=== PATIENT | male | born 1965 | race Caucasian/White ===

== ENCOUNTER 2023-09-14 12:04 | Outpatient (OUT) | payer OTHER, SELFPAY ==
--- NOTE | 2023-09-14 | ECG_ITS ---
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
--- NOTE | 2023-09-14 | XR_ITS ---
The [address] [address] Patient Name: HARRIETT THAKKAR MRN: [id number] date: 1965 Sex: M Assigned Patient Location: LAB Current Patient Location: LAB Accession/Order Number: [id number] Exam Date: 09/14/2023 12:40 Report Date: 09/14/2023 12:52 At the request of: MARIELENA RESTREPO Procedure: XR chest 2V EXAM: XR chest 2V HISTORY: DYSPNEA ON EXERTION (R06.09) COMPARISON: None. TECHNIQUE: PA and lateral views of the chest. FINDINGS: The cardiomediastinal silhouette is normal. Left-sided cardiac pacemaker with atrial and ventricular leads. No focal consolidation is identified. There is no pneumothorax. No pleural effusion is noted. The osseous structures are intact. XR/XR chest 2V IMPRESSION: No acute cardiopulmonary process. Electronically authenticated by: RACHEL LAMBERT Date: 09/14/2023 12:52
[2023-09-14 12:50] LABS: Basophils Absolute Auto 0.1 10^3/uL (0.0-0.1); Eosinophils Absolute Auto 0.1 10^3/uL (0.0-0.7); Eosinophils Percent Auto 2.1 % (0.9-7.0); Hematocrit 41.6 % (42.0-54.0); Hemoglobin 13.9 g/dL (14.0-18.0); Immature Granulocytes Abs Auto 0.02 10^3/uL (0.00-0.03); Immature Granulocytes Pct Auto 0.3 % (0.0-0.5); Lymphocytes Absolute Auto 1.1 10^3/uL (1.2-3.8); Mean Corpuscular HGB Conc 33.4 g/dL (29.9-35.2); Mean Corpuscular Hemoglobin 32.1 pg (25.9-34.0); Mean Corpuscular Volume 96.1 fL (80.0-94.0); Mean Platelet Volume 11.2 fL (9.5-13.5); Monocytes Absolute Auto 0.5 10^3/uL (0.3-0.8); Monocytes Percent Auto 8.4 % (1.7-12.0); Neutrophils Absolute Auto 4.4 10^3/uL (1.4-6.5); Neutrophils Percent Auto 71.2 % (43.0-75.0); Platelet Count 214 10^3/uL (150-450); Red Blood Count 4.33 10^6/uL (4.70-6.10); Red Cell Distribution Width 14.6 % (11.0-15.0); White Blood Count 6.2 10^3/uL (4.0-11.0)
[2023-09-14 13:02] LABS: Anion Gap 12.8; BUN Creatinine Ratio 15.2; Calcium 9.4 mg/dL (8.5-10.1); Carbon Dioxide 30.3 mmol/L (21.0-32.0); Chloride 103 mmol/L (98-107); Estimated GFR (African America >60 (>=60); Estimated GFR (Non-African Ame 59 (>=60); Glucose 192 mg/dL (74-106); Magnesium 1.2 mg/dL (1.8-2.4); Potassium 4.1 mmol/L (3.5-5.1); Sodium 142 mmol/L (136-145)
== END 2023-09-14 12:05 | disposition home or self-care (01) ==
LOC: LAB 12:08
PROVIDERS: PCP Family Medicine; Visit Provider Nurse Practitioner
DX: I48.0 Paroxysmal atrial fibrillation (principal); R06.09 Other forms of dyspnea
CPT/HCPCS: 36415; 71046; 80048; 83735; 83880; 85025; 93005

== ENCOUNTER 2023-10-01 10:09 | Outpatient (OUT) | payer OTHER, SELFPAY ==
--- OUTSIDE RECORDS SUMMARY | 2023-10-01 10:14 | XMS_ITS | CCD ---
Author Name Unknown Address [address] [place] [address] Organization [facility] Care Team Providers Care Digital Sales Director Name Role Phone Gladys Garcia Unavailable Unavailable Unavailable Farnaz Collazo Unavailable MD Gladys Garcia Primary Care Provider [phone] DO Bethel Bates Emergency Provider [facility] Attending Provider MD Angel Griggs Attending Provider [phone] Ugo Connelly Unavailable Tabitha Shaw Unavailable Jama Lopez Unavailable MD Gladys Garcia Primary Care Provider MD Angel Griggs Attending Provider [phone] Nickie [facility] Nmio Madsen Emergency Provider NAYLA Steven Attending Provider DR ANGEL GRIGGS Admitting Unavailable GRIGGS, DR ANGEL Matias Consulting Unavailable GRIGGS, DR ANGEL Matias Attending Unavailable GARCIA ., DR GLADYS Madsen Primary Care Unavailable GARCIA ., DR GLADYS Madsen Attending Unavailable GARCIA ., DR GLADYS Madsen Admitting Unavailable GARCIA ., DR GLADYS Madsen Primary Care Unavailable GARCIA ., DR GLADYS Madsen Consulting Unavailable GARCIA ., DR GLADYS Madsen Attending Unavailable GARCIA ., DR GLADYS Madsen Admitting Unavailable GARCIA ., DR GLADYS Madsen Primary Care Unavailable GARCIA ., DR GLADYS Madsen Consulting Unavailable GARCIA ., DR GLADYS Madsen Attending Unavailable GARCIA ., DR GLADYS Madsen Admitting Unavailable GARCIA ., DR GLADYS Madsen Primary Care Unavailable KUBITZ, DR PINEDA Styles Attending Unavailable KUBITZ, DR PINEDA Styles Admitting Unavailable KUBITZ, DR PINEDA Styles Consulting Unavailable GARCIA ., DR GLADYS Madsen Primary Care Unavailable GARCIA, GLADYS Madsen Attending Unavailable RADHA, GLADYS Madsen Attending Unavailable RADHA, GLADYS Madsen Attending Unavailable MD Gladys Garcia Primary Care Provider MD Angel Griggs Attending Provider MD Toby Amador Primary Care Provider DO José Luis Coleman Emergency Provider MD Toy Yeager Admit Provider MD Toy Yeager Attending Provider MD Naveen Emmayra Other Provider DO Derrek Tay Attending Provider [phone] Gladys Garcia Primary Care Unavailab Angel Fang Attending Unavailable Angel Griggs Attending Unavailable Dr. Toby Amador Primary Care Noemi Amador MD, Toby Tejada Primary Care Provider Lior Villeda MD Unavailable TOBY AMADOR Primary Care UnavailLORENE Ayoub Referring Unavailable TOBY AMADOR Primary Care UnavailANGEL Pro Attending Unavailable TOBY AMADOR Primary Care UnavailToby Aldana MD Primary Care Provider Toby Amador MD Primary Care Provider U navailTOBY Juárez Primary Care Unavailfredrick Amador MD, Toby Tejada Primary Care Provider MD Gladys Garcia Primary Care Provider [phone] MD Angel Griggs Attending Provider [phone] MD Toby Amador Primary Care Provider DO José Luis Coleman Emergency Provider [phone] Pineda Steven Admitting Unavailable Pineda Steven Attending Unavailable Gladys Garcia Primary Care Unavailable Griggs, Angel Admitting Unavailable Griggs, Angel Attending Unavailable Toy, Toy Admitting Unavailable Lance Emurhaf Consulting Unavailable Derrek Tay Attending Unavailable Toby Amador Primary Care Unavailable Gladys Garcia Primary Care Unavailable Bullimore, Nimo Cale Admitting Unavailable Bullimore, Nimo E Attending Unavailable José Luis Coleman Admitting Unavailable José Luis Coleman Attending Unavailable Toby Amador Primary Care Unavailable Aba, Dr. Toby Tejada Primary Care Noemi Villeda MD, Lior Referring Unavailable Lior Villeda MD Attending Unavailable Radha, Dr. Gladys Kelsey Primary Care Unavailab le Griggs, Dr. Angel Robb Referring Shellie vailable Griggs, Dr. Angel Robb Attending Shellie vailable Griggs, Dr. Angel Robb Referring Shellie vailable Griggs, Dr. Angel Robb Attending Shellie vailable Radha, Dr. Gladys Kelsey Primary Care Unavailab gregor Garcia, Dr. Gladys Kelsey Primary Care Unavailab le Griggs, Dr. Angel Robb Attending Shellie vailable Radha, Dr. Gladys Kelsey Primary Care Unavailab gregor Gacria, Dr. Gladys Kelsey Primary Care Unavailab NATHAN Hunt Referring Unavailable NADERETOBY Styles Primary Care UnavailNATHAN Fay Referring Unavailable TOBY AMADOR Primary Care Unavailabl e VILLEDA, LIOR Admitting Unavailable LIOR VILLEDA Attending Unavailable TOBY AMADOR Primary Care UnavailNATHAN Fay Referring Unavailable NADTOBY CARABALLO Primary Care Unavailabl e VILLEDA, LIOR Referring Unavailable TOBY AMADOR Primary Care Unavailfredrick e MARIELENA RESTREPO Attending Unavailable NADERERTOBY Attending Unavailable Allergies Allergy Classification Reported Allergen(s) Allergy Type Date of Onset Reaction(s) Facility (18 sources) Angiotensin Converting Enzyme (Paulette) Inhibitors; Translations: [PAULETTE Inhibitors] Allergy to drug (finding) 06-12-20 23 Hypotension [facility] 3 Repository (20 sources) Penicillins; Translations: [Penicillins] Allergy to drug (finding) 03-01-20 22 Unknown Reaction [facility] (20 sources) Sulfamethoxazole; Translations: [sulfa] Drug Allergy 06-12-20 23 Unknown, Rash [facility] DO Work Phone: (20 sources) penicillAMINE Drug Allergy Unknown [employer] Other (6 sources) Sulfonamides (Antibiotic); Translations: [Sulfa (Sulfonamide Antibiotics)] Allergy to substance 03-01-20 22 Unknown Reaction [facility] (1 source) Penicillins Drug allergy (disorder) 06-04-20 14 [facility] Repository (1 source) Sulfamethoxazole / Trimethoprim Drug Allergy 01-27-20 21 [facility] Repository (1 source) Sulfonamides (Antibiotic) Drug allergy (disorder) 06-04-20 14 [facility] Repository (1 source) Penicillin; Translations: [penicillin] Drug Allergy [facility] Repository (1 source) Sulfonamides (Antibiotic); Translations: [sulfa drugs] Propensity to adverse reactions (disorder) [facility] Repository (11 sources) Angiotensin-convert ing enzyme inhibitor agent Drug Allergy 06-12-20 23 Other [facility] (11 sources) Penicillins Drug Allergy 06-12-20 23 Unknown [facility] Work Phone: (3 sources) Sulfamethoxazole; Translations: [SULFAMETHOXAZOLE] Drug Allergy 06-12-20 23 [facility] 3 Repository (1 source) Penicillins Drug allergy (disorder) 04-02-20 23 [facility] Repository Medications Current Medications Medication Drug Class(es) Dates Sig (Normalized) Sig (Original) 3 ML semaglutide 2.68 MG/ML Pen Injector [Ozempic] (20 sources) inject 2 mg by subcutaneous injection every week Ozempic (2 MG/DOSE) 8 MG/3ML 2mg Subcutaneous once a week Active acetaminophen 325 mg oral tablet (1 source) Start: 06-29-2023 take 1 tablet by mouth every four hours as needed 650 mg, oral, Every 4 hours PRN, pain mild (1-3), first line, Starting on Tue06/29/23 at 1640 If ordered PRN for pain, nurse is permitted to administer this medication for higher pain scores based on patient preference? Yes amiodarone hydrochloride 200 mg oral tablet (19 sources) Antiarrhythmic Start: 07-22-2023 End: 09-20-2023 amiodarone (Pacerone) 200 mg tablet Indications: Paroxysmal atrial fibrillation (CMS/HCC) , Ventricular tachycardia, nonsustained (CMS/HCC) Take 1 tablet (200 mg) by mouth once daily. Do not start before July 22, 2023. 30 tablet 1 07/22/2023 Active Start: 06-30-2023 End: 07-21-2023 take 1 tablet by mouth twice daily amiodarone (Pacerone) 200 mg tablet Indications: Paroxysmal atrial fibrillation (CMS/HCC) , Ventricular tachycardia, nonsustained (CMS/HCC) Take 1 tablet (200 mg) by mouth 2 times a day for 21 days. 42 tablet 0 06/30/2023 Active Start: 06-30-2023 amiodarone (Pa cerone) tablet 200 mg apixaban 5 mg oral tablet (14 sources) Factor Xa Inhibitor Start: 08-29-2023 take 1 tablet by mouth every twelve hours 5 mg, oral, Every 12 hours, First dose on Tue08/29/23 at 2030 Start: 08-29-2023 End: 09-28-2023 take 1 tablet by mouth twice daily apixaban (Eliquis) 5 mg tablet Indications: Atrial fibrillation (CMS/HCC) Take 1 tablet (5 mg) by mouth 2 times a day. 60 tablet 0 08/29/2023 09/28/2023 Active Start: 10-26-2019 End: 03-01-2022 take 1 tablet by mouth twice daily Apixaban (Eliquis) 5 mg Tablet Discontinued 5 MG PO Twice daily 60 30 November 12, 2019 10:45am March 01, 2022 7:03pm atorvastatin 80 mg oral tablet (20 sources) HMG-CoA Reductase Inhibitor Start: 06-29-2023 take 80 mg by mouth once daily 80 mg, oral, Nightly, First dose on Tue06/29/23 at 2100 Start: 11-09-2019 take 1 tablet by shaquille th once daily at bedtime atorvastatin (Lipitor) 80 mg tablet Take 1 tablet (80 mg) by mouth once daily at bedtime. 0 01/13/2021 Active calcium chloride 0.0014 meq/ml / potassium chloride 0.004 meq/ml / sodium chloride 0.103 meq/ml / sodium lactate 0.028 meq/ml injectable solution (1 source) Start: 08-29-2023 lactated Ringe r's infusion clopidogrel 75 mg oral tablet (20 sources) P2Y12 Platelet Inhibitor Start: 07-04-2020 take 1 tablet by mouth once daily clopidogrel (Plavix) 75 mg tablet Take 1 tablet (75 mg) by mouth once daily. 0 10/09/2021 Active colchicine 0.6 mg oral tablet (2 sources) Start: 08-29-2023 End: 09-05-2023 colchicine tablet 0.6 mg docusate sodium 50 mg / sennosides, senior living 8.6 mg oral tablet (1 source) Start: 08-29-2023 take 2 tablets by mouth twice daily 2 tablet, oral, 2 times daily, First dose on Tue08/29/23 at 2100 Bowel Regimen - for prevention of constipation H old for loose stools doxycycline hyclate 100 mg oral capsule (6 sources) Tetracycline-cla ss Drug Start: 06-30-2023 End: 07-07-2023 doxycycline (Vibramycin) 100 mg capsule Indications: S/P implantation of automatic cardioverter/defibr illator (AICD) Take 1 capsule (100 mg) by mouth 2 times a day for 7 days. Take with at least 8 ounces (large glass) of water, do not lie down for 30 minutes after 14 capsule 0 06/30/2023 07/07/2023 Active Start: 07-17-2020 End: 03-01-2022 take 100 mg by mouth twice daily Doxycycline Monohydrate Discontinued 100 MG PO Twice daily July 16, 2020 11:00pm March 01, 2022 7:03pm furosemide 40 mg oral tablet (20 sources) Loop Diuretic Start: 09-13-2023 End: 09-12-2024 take 1.5 tablets by mouth once daily furosemide (Lasix) 40 mg tablet Indications: Essential hypertension Take 1.5 tablets (60 mg) by mouth once daily. 135 tablet 3 09/13/2023 09/12/2024 Active Start: 08-30-2023 furosemide (La six) injection 20 mg Start: 06-29-2023 take 40 mg by mouth once daily 40 mg, oral, Daily, First dose on Tue08/29/23 at 2030 Start: 07-04-2020 take 60 mg by mouth once daily Furosemide Active 60 MG PO Daily July 03, 2020 11:00pm glucagon (rdna) 1 mg injection (2 sources) Antihypoglycemic Agent Start: 08-29-2023 1 mg, i ntramuscular, Every 15 min PRN, low blood sugar - see comments, For blood glucose less than or equal to 70 mg/dL and no IV access, Starting on Tue08/29/23 at 2027 Give until blood glucose is 100 mg/dL or greater. If patient DOES NOT HAVE secure IV access & patient is unconscious, NPO or is unable to eat or drink. Start: 06-29-2023 1 mg, intramus cular, Every 15 min PRN, low blood sugar - see comments, For blood glucose less than or equal to 70 mg/dL and no IV access, Starting on Tue06/29/23 at 1737 Give until blood glucose is 100 mg/dL or greater. If patient DOES NOT HAVE secure IV access & patient is unconscious, NPO or is unable to eat or drink. 50 ml glucose 500 mg/ml prefilled syringe (4 sources) Start: 08-29-2023 25 g, intraven ous, Every 15 min PRN, For blood glucose less than or equal to 40 mg/dL, Starting on Tue08/29/23 at 2027 May repeat until blood glucose level reaches 100 mg/dL or greater. Push 2 - 3 mL/minute if patient has secure IV access. Start: 08-29-2023 0.3 g/kg/hr 14 6 kg (438 mL/hr), intravenous, Once as needed, For blood glucose less than 70 mg/dL after 30 minutes of intervention. Discontinue once blood glucose reaches 100 mg/dL., Starting on Tue08/29/23 at 2027, For 1 dose Discontinue once blood glucose reaches 100 mg/dL. Start: 06-29-2023 25 g, intraven ous, Every 15 min PRN, For blood glucose less than or equal to 40 mg/dL, Starting on Tue06/29/23 at 1737 May repeat until blood glucose level reaches 100 mg/dL or greater. Push 2 - 3 mL/minute if patient has secure IV access. Start: 06-29-2023 0.3 g/kg/hr 13 6 kg (408 mL/hr), intravenous, Once as needed, For blood glucose less than 70 mg/dL after 30 minutes of intervention. Discontinue once blood glucose reaches 100 mg/dL., Starting on Tue06/29/23 at 1737, For 1 dose Discontinue once blood glucose reaches 100 mg/dL. insulin aspart, human (20 sources) Insulin Analog Start: 04-04-2023 Insulin Aspart U-100 Active 0 UNIT SUBCUT Before meals April 03, 2023 11:00pm Start: 04-04-2023 Insulin Aspart U-100 Active 0 UNIT SUBCUT Before meals April 04, 2023 12:00am Start: 11-08-2020 insulin aspart (NovoLOG) 100 unit/mL injection Insulin Aspart 100 UNIT/ML SOLN Quantity: 120 Refills: 0 Start : 08-Nov-2020 Active 0 11/08/2020 Active Start: 11-08-2020 Insulin Aspart 100 UNIT/ML Subcutaneous Solution Quantity: 120 Refills: 0 Ordered: 13-Feb-2021 DO Start : 08-Nov-2020 Active Start: 08-04-2017 Insulin Aspart U-100 Active 0 .ROUTE .COMPLEX August 04, 2017 12:00am 150-200=3, 200-250=6, 250-300=9, 300-350=12, 350-400=15 plus half as many insulin as carbs eaten. Start: 08-04-2017 Insulin Aspart U-100 Active 0 .ROUTE .COMPLEX August 04, 2017 1:00am 150-200=3, 200-250=6, 250-300=9, 300-350=12, 350-400=15 plus half as many insulin as carbs eaten. Start: 08-04-2017 inject 50 [IU] by dalton bcutaneous injection once before mealtime Insulin Aspart U-100 Active 50 UNITS SUBCUT 3x/Day before meals August 04, 2017 1:00am NovoLOG 100 UNIT /ML Subcutaneous for 28 Active Insulin Aspart A ctive insulin glargine 100 unt/ml injectable solution (7 sources) Insulin Analog Start: 08-29-2023 inject 65 [IU] by subcutaneous injection once daily 65 Units, subcutaneous, Nightly, First dose on Tue08/29/23 at 2100 Start: 06-29-2023 insulin glargi ne (Lantus) injection 65 Units Start: 08-04-2017 End: 03-01-2022 inject 50 [IU] by subcutaneous injection once daily in the morning Insulin Glargine Discontinued 50 UNITS SUBCUT Every morning August 04, 2017 12:00am March 01, 2022 7:04pm Start: 08-04-2017 End: 03-01-2022 inject 50 [IU] by subcutaneous injection once daily in the morning Insulin Glargine Discontinued 50 UNITS SUBCUT Every morning August 04, 2017 1:00am March 01, 2022 8:04pm Insulin Glargine-Yfgn (5 sources) Start: 03-01-2022 Insulin Glargi ne-Yfgn (Semglee(Insulin Glargine-Yfgn)) 100 unit/mL solution Active 50 UNIT SUBCUT Daily February 28, 2022 11:00pm Start: 03-01-2022 Insulin Glargi ne-Yfgn (Semglee(Insulin Glargine-Yfgn)) 100 unit/mL solution Active 50 UNIT SUBCUT Daily March 01, 2022 12:00am Start: 03-01-2022 Insulin Glargi ne-Yfgn (Semglee(Insulin Glargine-Yfgn)) 100 unit/mL solution Active 65 UNIT SUBCUT Daily March 01, 2022 12:00am insulin glargine-yfgn (Semglee,insulin glargine-yfgn,) 100 unit/mL pen (11 sources) Start: 10-06-2021 insulin glargine-yfgn (Semglee,insulin glargine-yfgn,) 100 unit/mL pen Inject 65 Units under the skin once daily at bedtime. 0 10/06/2021 Active insulin lispro 100 unt/ml injectable solution (1 source) Insulin Analog Start: 06-29-2023 0-5 Units, subcutaneous, 3 times daily with meals, First dose on Tue06/29/23 at 1745 Insulin Lispro Corrective Scale #1 Hypoglyce phuong protocol Call LIP unit(s) if Blood Glucose is between 0 - 70 mg/dL 0 unit(s) if Blood glucose is between 71-150 1 unit(s) if Blood glucose is between 151-200 2 unit(s) if Blood glucose is between 201-250 3 unit(s) if Blood glucose is between 251-300 4 unit(s) if Blood glucose is between 301-350 5 unit(s) if Blood glucose is between 351-400 No tify provider unit(s) if Blood Glucose is greater than 400 mg/dL metFORMIN hydrochloride 850 mg oral tablet (20 sources) Biguanide Start: 08-04-2017 take 1 tablet by mouth twice daily metFORMIN (Glucophage) 850 mg tablet Take 1 tablet (850 mg) by mouth 2 times a day. 0 04/22/2020 Active 24 hr metoprolol succinate 25 mg extended release oral tablet (20 sources) beta-Adrenergic Cady Start: 06-29-2023 End: 09-10-2023 take 25 mg by mouth once daily 25 mg, oral, Daily, First dose on Tue08/29/23 at 2029 Do not crush or chew. Start: 12-16-2021 End: 06-30-2023 take 1 tablet by mouth twice daily metoprolol succinate XL (Toprol-XL) 25 mg 24 hr tablet Take 1 tablet (25 mg) by mouth 2 times a day. 0 12/16/2021 06/30/2023 Discontinued (Stop Taking at Discharge) Start: 07-04-2020 take 25 mg by mouth twice mark y Metoprolol Succinate Active 25 MG PO Twice daily July 03, 2020 11:00pm Start: 07-04-2020 take 25 mg by mouth once daily Metoprolol Succinate Active 25 MG PO Daily July 04, 2020 12:00am Start: 11-12-2019 End: 07-04-2020 take 25 mg by mouth every six hours Metoprolol Tartrate Discontinued 25 MG PO Every 6 hours November 12, 2019 12:00am July 04, 2020 11:09am Start: 10-19-2019 End: 11-12-2019 take 50 mg by mouth once daily in the morning Metoprolol Succinate Discontinued 50 MG PO Every morning October 19, 2019 12:00am November 12, 2019 12:06pm Start: 10-19-2019 End: 11-12-2019 take 25 mg by mouth twice daily Metoprolol Tartrate Di scontinued 25 MG PO Twice daily October 19, 2019 12:00am November 12, 2019 10:45am Start: 08-04-2017 End: 10-19-2019 take 50 mg by mouth twice daily Metoprolol Tartrate Di scontinued 50 MG PO Twice daily August 04, 2017 12:00am October 19, 2019 7:41am midodrine hydrochloride 10 mg oral tablet (20 sources) alpha-Adrenergic Agonist Start: 04-20-2023 take 10 mg by mouth three times daily 10 mg, oral, 3 times daily (0900,1400,1900), First dose on Tue08/29/23 at 2115 Avoid dosing after the evening meal or within 4 hours of bedtime to prevent supine hypertension unless indicated for vasopressor sparing in the ICU. Start: 07-12-2022 End: 07-12-2023 take 2 tablets by mouth three times daily midodrine (Proamatine) 5 mg tablet Take 2 tablets (10 mg) by mouth 3 times a day. 0 07/12/2022 07/12/2023 Discontinued (Other) Start: 07-12-2022 take 1 tablet by shaquille th three times daily Midodrine HCl - 5 MG Oral Tablet TAKE 1 TABLET 3 TIMES DAILY. Quantity: 270 Refills: 3 Ordered: 12-Jul-2022 Angel Griggs MD Start : 12-Jul-2022 Active dose increased Start: 03-01-2022 take 5 mg by mouth twice daily Midodrine Active 5 MG PO Twice daily February 28, 2022 11:00pm Start: 03-01-2022 take 2.5 mg by mouth once mark y Midodrine Active 2.5 MG PO Daily March 01, 2022 12:00am Start: 10-09-2021 take 1 tablet by shaquille th three times daily Midodrine HCl - 2.5 MG Oral Tablet TAKE 1 TABLET 3 TIMES DAILY. Quantity: 270 Refills: 3 Ordered: 09-Oct-2021 Angel Griggs MD Start : 09-Oct-2021 Active take 1 tablet by shaquille th twice daily Midodrine HCl - 2.5 MG Oral Tablet Take 1 tablet twice daily Quantity: 0 Refills: 0 Ordered: 11-Jan-2023 DO Active nitroglycerin 0.4 mg sublingual tablet (20 sources) Nitrate Vasodilator Start: 06-29-2023 0.4 mg, dalton blingual, Every 5 min PRN, chest pain, Starting on Tue06/29/23 at 1737 May administer up to 3 doses per episode. Start: 10-19-2019 End: 11-12-2019 Nitroglycerin (Nitrostat) 0. 4 mg Tablet, Sublingual Active 0.4 MG SUBLINGUAL every 5 to 15 minutes November 12, 2019 10:45am Nitroglycerin 0. 4 MG as directed Sublingual Active Ozempic (2 MG/DOSE) 8 MG/3ML (3 sources) inject 2 mg by subcutaneous injection every week Ozempic (2 MG/DOSE) 8 MG/3ML 2mg Subcutaneous once a week Active ozempic (2 mg/dose) 8 mg/3ml solution pen-injector (1 source) inject 2 mg by subcutaneous injection every week Ozempic (2 MG/DOSE) 8 MG/3ML 2mg Subcutaneous once a week Active potassium 99 mg extended release oral tablet (20 sources) take 1 tablet by shaquille th once daily Potassium 99 MG 1 tablet Orally Once a day 10 mq once daily Active microencapsulated potassium chloride 20 meq extended release oral tablet (20 sources) Start: 2022 potassium chloride CR 20 mEq ER tablet 1 tablet (20 mEq) once daily. 0 2022 Active Start: 2022 take 1 tablet by shaquille th once daily Potassium Chloride ER 20 MEQ Oral Tablet Extended Release 1 TAB DAILY Quantity: 90 Refills: 3 Ordered: 18-Apr-2023 Angel Griggs MD Start : 09-Mar-2022 Active Start: 03-01-2022 take 20 mEq by mouth once mark y Potassium Chloride Active 20 MEQ PO Daily February 28, 2022 11:00pm Start: 03-01-2022 take 10 mEq by mouth once mark y Potassium Chloride Active 10 MEQ PO Daily March 01, 2022 12:00am Start: 11-17-2020 Potassium Chlo ride ER 10 MEQ Oral Capsule Extended Release Quantity: 90 Refills: 0 Ordered: 27-Jul-2021 DO Start : 17-Nov-2020 Active Semaglutide (5 sources) Start: 03-01-2022 inject 1 mg by subcutaneous injection every week Semaglutide (Ozempic) 1 mg/dose (4 mg/3 mL) pen injector Active 2 MG SUBCUT every week February 28, 2022 11:00pm tuesday Start: 03-01-2022 inject 1 mg by subcu taneous injection every week Semaglutide (Ozempic) 1 mg/dose (4 mg/3 mL) pen injector Active 2 MG SUBCUT every week March 01, 2022 12:00am tuesday Start: 03-01-2022 inject 1 mg by subcu taneous injection every week Semaglutide (Ozempic) 1 mg/dose (4 mg/3 mL) pen injector Active 2 MG SUBCUT every week March 01, 2022 12:00am Start: 03-01-2022 inject 1 mg by subcu taneous injection every week Semaglutide (Ozempic) 1 mg/dose (4 mg/3 mL) pen injector Active 1 MG SUBCUT every week March 01, 2022 12:00am semaglutide (Ozempic) 1 mg/dose (4 mg/3 mL) pen injector (10 sources) Start: 07-02-2021 semaglutide (Ozempic) 1 mg/dose (4 mg/3 mL) pen injector Ozempic (1 MG/DOSE) 4 MG/3ML Subcutaneous Solution Pen-injector Quantity: 9 Refills: 0 Start : 02-Jul-2021 Active 0 07/02/2021 Active traMADol hydrochloride 50 mg oral tablet (1 source) Opioid Agonist Start: 06-29-2023 take 1 tablet by mouth every six hours as needed 50 mg, oral, Every 6 hours PRN, pain moderate (4-6), second line, Starting on Tue06/29/23 at 1640 If ordered PRN for pain, nurse is permitted to administer this medication for higher pain scores based on patient preference? Yes Completed/Discontinued Medications Medication Drug Class(es) Dates Sig (Normalized) Sig (Original) aspirin 81 mg delayed release oral tablet (5 sources) Platelet Aggregation Inhibitor, Nonsteroidal Anti-inflammatory Drug Start: 10-19-2019 End: 07-04-2020 take 81 mg by mouth once daily Aspirin Discontinued 81 MG PO Daily October 19, 2019 12:00am July 04, 2020 11:04am cephalexin 500 mg oral capsule (5 sources) Cephalosporin Antibacterial Start: 11-14-2020 End: 03-01-2022 take 500 mg by mouth every twelve hours Cephalexin Discontinued 500 MG PO Q12H 14 November 14, 2020 12:00am March 01, 2022 7:02pm clindamycin 300 mg oral capsule (1 source) Lincosamide Antibacterial Start: 05-10-2022 take 1 capsule by mouth every eight hours Clindamycin HCl - 300 MG Oral Capsule TAKE 1 CAPSULE BY MOUTH EVERY 8 HOURS FOR 10 DAYS Quantity: 30 Refills: 0 Ordered: 10-May-2022 DO Start : 10-May-2022 Complete collagenase 0.25 unt/mg topical ointment (5 sources) Collagen-specific Enzyme Start: 07-04-2020 End: 03-01-2022 Collagenase Clostridium Histo. (Santyl) 250 unit/gram ointment Discontinued 1 APPLIC TOPICAL Daily July 03, 2020 11:00pm March 01, 2022 7:02pm digoxin 0.25 mg oral tablet (5 sources) Cardiac Glycoside Start: 11-12-2019 End: 03-01-2022 take 250 ug by mouth once daily Digoxin Discontinued 250 MCG PO Daily November 12, 2019 12:00am March 01, 2022 7:03pm dofetilide 0.25 mg oral capsule (20 sources) Antiarrhythmic Start: 05-17-2023 take 1 capsule by mouth twice daily Dofetilide 250 MCG Oral Capsule TAKE 1 CAPSULE TWICE DAILY. Quantity: 180 Refills: 1 Ordered: 17-May-2023 Angel Griggs MD Start : 17-May-2023 Active dose decreased Start: 05-10-2023 take 1 capsule by [facility] twice daily Dofetilide 125 MCG Oral Capsule TAKE 1 CAPSULE TWICE DAILY ALONG WITH 250 MCG = 375 MCG TWICE DAILY. Quantity: 180 Refills: 3 Ordered: 10-May-2023 Angel Griggs MD Start : 10-May-2023 Active DOSE DECREASE Start: 05-10-2023 take [address] [facility] twice daily Dofetilide 250 MCG Oral Capsule TAKE 1 CAPSULE TWICE DAILY ALONG WITH 125 MCG = 375 MCG TWICE DAILY. Quantity: 180 Refills: 3 Ordered: 10-May-2023 Angel Griggs MD Start : 10-May-2023 Active dose decrease Start: 11-12-2019 End: 06-30-2023 take 500 ug by mouth twice daily Dofetilide Active 500 MCG PO Twice daily 60 November 12, 2019 12:00am take 1 capsule by mo ut twice daily Dofetilide 125 MCG 1 capsule (with 250mg to equal 375mcg) Orally Twice a day Active take 1 capsule by mo uth every twelve hours Dofetilide 250 MCG 1 capsule Oral Twice a day for 30 days Active take 500 ug by mouth twice daily Dofetilide 500 MCG TK 1 C PO BID Oral for 30 Active dronedarone 400 mg oral tablet (5 sources) Antiarrhythmic Start: 10-19-2019 End: 11-12-2019 take 1 tablet by mouth twice daily Dronedarone (Multaq) 400 mg Tablet Discontinued 400 MG PO Twice daily October 19, 2019 12:00am November 12, 2019 12:06pm glipiZIDE 5 mg oral tablet (1 source) Sulfonylurea Start: 06-30-2023 End: 06-30-2023 take 1 tablet by mouth once daily in the morning 5 mg, oral, 2 times daily before meals, First dose on Carly 06/30/23 at 0700 TAKE 1 TABLET BY MOUTH EVERY MORNING AND TAKE 1 TABLET BY MOUTH ONE HOUR BEFORE LUNCH IF BLOOD SUGAR IS OVER 180 glyBURIDE 5 mg oral tablet (20 sources) Sulfonylurea Start: 03-01-2022 End: 04-02-2023 take 5 mg by mouth twice daily Glyburide Discontinued 5 MG PO Twice daily February 28, 2022 11:00pm April 02, 2023 8:53am Start: 08-27-2020 End: 06-30-2023 take 1 tablet by mouth once daily in the morning glyBURIDE (Diabeta) 5 mg tablet Take 1 tablet (5 mg) by mouth once daily in the morning. TAKE 1 TABLET BY MOUTH EVERY MORNING AND TAKE 1 TABLET BY MOUTH ONE HOUR BEFORE LUNCH IF BLOOD SUGAR IS OVER 180 0 08/27/2020 06/30/2023 Discontinued (Stop Taking at Discharge) Start: 08-04-2017 End: 07-04-2020 take 5 mg by mouth twice daily Glyburide Discontinued 5 MG PO Twice daily August 04, 2017 12:00am July 04, 2020 11:05am Insulin Aspart 100 UNIT/ML SOLN (14 sources) Start: 11-08-2020 Insulin Aspart 100 UNIT/ML SOLN Quantity: 120 Refills: 0 Ordered: 13-Feb-2021 DO Start : 08-Nov-2020 Active lisinopril 5 mg oral tablet (5 sources) Angiotensin Converting Enzyme Inhibitor Start: 08-04-2017 End: 10-19-2019 take 5 mg by mouth once daily Lisinopril Discontinued 5 MG PO Daily August 04, 2017 12:00am October 19, 2019 7:39am Magnesium (5 sources) Start: 03-01-2022 End: 04-02-2023 take 200 mg by mouth once daily Magnesium Discontinued 200 MG PO Daily 2 February 28, 2022 11:00pm April 02, 2023 8:54am Start: 03-01-2022 End: 04-02-2023 take 200 mg by mouth once daily Magnesium Discontinued 200 MG PO Daily 2 March 01, 2022 12:00am April 02, 2023 9:54am Start: 03-01-2022 take 200 mg by mouth once daily Magnesium Active 200 MG PO Daily 2 March 01, 2022 12:00am magnesium oxide 400 mg oral tablet (7 sources) Start: 04-16-2022 take 1 tablet by mouth twice daily MAGnesium-Oxide 400 (240 Mg) MG Oral Tablet TAKE 1 TABLET BY MOUTH TWICE DAILY Quantity: 60 Refills: 0 Ordered: 20-Apr-2022 DO Start : 16-Apr-2022 Complete take 1 tablet by shaquille th three times daily Magnesium Oxide 400 MG Oral Tablet TAKE 1 TABLET 3 times daily Quantity: 0 Refills: 0 Ordered: 11-Jan-2023 DO Active Ozempic (0.25 or 0.5 MG/DOSE ) 2 MG/1.5ML (8 sources) Ozempic (0.25 or 0.5 MG/DOSE) 2 MG/1.5ML 0.5mg Subcutaneous once a week Not-Taking/PRN Ozempic (0.25 or 0.5 MG/DOSE) 2 MG/1.5ML 0.5mg Subcutaneous once a week Not-Taking Ozempic (1 MG/DOSE) 4 MG/3ML Subcutaneous Solution Pen-injector (15 sources) Start: 07-02-2021 Ozempic (1 MG/ DOSE) 4 MG/3ML Subcutaneous Solution Pen-injector Quantity: 0 Refills: 0 Ordered: 03-Jul-2021 DO Start : 02-Jul-2021 Active Start: 07-02-2021 Ozempic (1 MG/ DOSE) 4 MG/3ML Subcutaneous Solution Pen- injector Quantity: 9 Refills: 0 Ordered: 03-Jul-2021 DO Start : 02-Jul-2021 Active Ozempic (2 MG/DOSE) 8 MG/3ML Subcutaneous Solution Pen-injector (1 source) Start: 04-05-2022 inject 2 mg by subcutaneous injection every week Ozempic (2 MG/DOSE) 8 MG/3ML Subcutaneous Solution Pen-injector INJECT UNDER THE SKIN 2 MG EVERY WEEK Quantity: 3 Refills: 0 Ordered: 09-Jun-2022 DO Start : 05-Apr-2022 Complete pantoprazole 40 mg delayed release oral tablet (2 sources) Proton Pump Inhibitor Start: 08-29-2023 End: 09-28-2023 take 1 tablet by mouth once daily pantoprazole (ProtoNix) 40 mg EC tablet Indications: Atrial fibrillation (CMS/HCC) Take 1 tablet (40 mg) by mouth once daily. Do not crush, chew, or split. 30 tablet 0 08/29/2023 09/15/2023 Discontinued (Discontinued by another clinician) rivaroxaban 20 mg oral tablet (5 sources) Factor Xa Inhibitor Start: 10-19-2019 End: 10-26-2019 take 1 tablet by mouth once daily Rivaroxaban (Xarelto) 20 mg Tablet Discontinued 20 MG PO Daily October 19, 2019 12:00am October 26, 2019 12:18pm rosuvastatin calcium 20 mg oral tablet (5 sources) HMG-CoA Reductase Inhibitor Start: 10-19-2019 End: 11-12-2019 take 20 mg by mouth once daily at bedtime Rosuvastatin Discontinued 20 MG PO Daily at bedtime October 19, 2019 12:00am November 12, 2019 12:06pm 0.25 mg, 0.5 mg dose 1.5 ml semaglutide 1.34 mg/ml pen injector (20 sources) Ozempic (0.25 or 0.5 MG/DOSE) 2 MG/1.5ML 0.5mg Subcutaneous once a week Not-Taking Semglee (yfgn) 100 UNIT/ML Subcutaneous Solution (15 sources) Start: 10-06-2021 Semglee (yfgn) 100 UNIT/ML Subcutaneous Solution Quantity: 0 Refills: 0 Ordered: 13-Oct-2021 DO Start : 06-Oct-2021 Active Start: 10-06-2021 Semglee (yfgn) 100 UNIT/ML Subcutaneous Solution Quantity: 50 Refills: 0 Ordered: 13-Oct-2021 DO Start : 06-Oct-2021 Active sodium phosphate, dibasic 59.3 mg/ml / sodium phosphate, monobasic 161 mg/ml enema (1 source) Start: 08-30-2023 End: 08-30-2023 sodium phosphates (Fleets) 19-7 gram/118 mL enema 1 enema ticagrelor 90 mg oral tablet (10 sources) Start: 10-26-2019 End: 07-04-2020 take 1 tablet by mouth twice daily Ticagrelor (Brilinta) 90 mg Tablet Discontinued 90 MG PO Twice daily 180 90 November 12, 2019 10:45am July 04, 2020 11:04am valsartan 80 mg oral tablet (5 sources) Angiotensin 2 Receptor Cady Start: 10-19-2019 End: 11-08-2019 take 80 mg by mouth once daily Valsartan Discontinued 80 MG PO Daily October 19, 2019 12:00am November 08, 2019 8:42pm warfarin sodium 5 mg oral tablet (20 sources) Vitamin K Antagonist Start: 12-15-2022 Warfarin Active 7.5 MG PO As Directed December 14, 2022 11:00pm TUESDAY Start: 03-01-2022 End: 08-31-2023 warfarin (Coumadin) 5 mg tab let Indications: Paroxysmal atrial fibrillation (CMS/HCC) TAKE 1 AND 1/2 TABLETS BY MOUTH ON TUESDAY, TUESDAY, TUESDAY. TAKE 1 TABLET ALL OTHER DAYS 110 tablet 3 08/23/2023 08/31/2023 Discontinued (Stop Taking at Discharge) Warfarin Sodium 5 MG Oral Tablet Take as directed [place] [facility] [place] Quantity: 0 Refills: 0 Ordered: 06-Oct-2021 DO Active Problems Active Problems Problem Classification Problem Date Documented Da te Episodic/Chronic Acute myocardial infarction (5 sources) Acute myocardial infarction of anterior wall; Translations: [ST elevation (STEMI) myocardial infarction involving other coronary artery of anterior wall] 11-09-2019 Chronic Cardiac dysrhythmias (20 sources) Paroxysmal atrial fibrillation; Translations: [Atrial fibrillation] Onset: 04-02-2023 11-09-2019 Chronic Cardiac dysrhythmias (11 sources) Palpitations; Translations: [Palpitations] Onset: 03-12-2022 03-01-2022 Episodic Chronic kidney disease (6 sources) Chronic kidney disease stage 3; Translations: [Stage 3 chronic kidney disease] 11-09-2019 Chronic Chronic ulcer of skin (1 source) Non-pressure chronic ulcer of other part of left foot with fat layer exposed; Translations: [N-PRS ULCR OTH PRT LT FT FAT EXPOS] Onset: 12-27-2022 Chronic Coagulation and hemorrhagic disorders (4 sources) Bleeding skin; Translations: [Spontaneous ecchymoses] 12-15-2022 Episodic Conduction disorders (20 sources) Automatic implantable cardiac defibrillator in situ; Translations: [Presence of automatic (implantable) cardiac defibrillator] Onset: 06-29-2023 06-30-2023 Chronic Coronary atherosclerosis and other heart disease (20 sources) Ischemic myocardial dysfunction; Translations: [Other specified forms of chronic ischemic heart disease] Onset: 07-17-2022 Chronic Diabetes mellitus with complications (6 sources) Type 2 diabetes mellitus with foot ulcer; Translations: [Type 2 diabetes mellitus with other diabetic neurological complication] Onset: 12-23-2022 Chronic Diabetes mellitus without complication (20 sources) Diabetes mellitus; Translations: [Diabetes mellitus without mention of complication, type II or unspecified type, not stated as uncontrolled] Onset: 04-02-2023 11-09-2019 Chronic Disorders of lipid metabolism (20 sources) Hyperlipidemia; Translations: [Other and unspecified hyperlipidemia] Onset: 07-21-2022 04-02-2023 Chronic Essential hypertension (20 sources) Essential hypertension; Translations: [Unspecified essential hypertension] Onset: 05-02-2023 06-12-2023 Chronic Fluid and electrolyte disorders (5 sources) Acute hypokalemia; Translations: [Hypokalemia] 03-01-2022 Episodic Other aftercare (20 sources) Drug therapy finding; Translations: [Long-term (current) use of other medications] Episodic Other aftercare (20 sources) Encounter for therapeutic drug level monitoring; Translations: [Medication monitoring encounter Z51.81] Onset: 06-24-2021 Resolved: 05-17-2022 Episodic Other connective tissue disease (5 sources) Swelling of left lower limb; Translations: [Other specified soft tissue disorders] 11-14-2020 Episodic Other lower respiratory disease (6 sources) Dyspnea; Translations: [Dyspnea, unspecified] 11-11-2019 Episodic Other nutritional; endocrine; and metabolic disorders (3 sources) Severe obesity; Translations: [Morbid obesity] Chronic Other nutritional; endocrine; and metabolic disorders (5 sources) Hypomagnesemia; Translations: [Hypomagnesemia] 03-01-2022 Chronic Other nutritional; endocrine; and metabolic disorders (20 sources) Obesity; Translations: [Obesity, unspecified] Onset: 06-12-2023 06-12-2023 Chronic Sylwia-; endo-; and myocarditis; cardiomyopathy (except that caused by tuberculosis or sexually transmitted disease) (4 sources) Primary cardiomyopathy; Translations: [Cardiomyopathy, unspecified] Onset: 07-13-2023 07-13-2023 Chronic Residual codes; unclassified (20 sources) Sleep apnea; Translations: [Unspecified sleep apnea] Onset: 06-12-2023 04-04-2023 Chronic Residual codes; unclassified (2 sources) Sleep apnea, unspecified; Translations: [Unspecified sleep apnea] Onset: 04-02-2023 04-04-2023 Chronic Residual codes; unclassified (5 sources) Noncompliance with treatment; Translations: [Patient's noncompliance with other medical treatment and regimen] 11-08-2019 Episodic Unclassified (2 sources) Other ventricular tachycardia (CMS/HCC); Translations: [Other ventricular tachycardia (CMS/HCC)] Onset: 06-12-2023 Unclassified (1 source) Non-pressure chronic ulcer of other part of left foot with fat layer exposed; Translations: [Non-pressure chronic ulcer of other part of left foot with fat layer exposed] Onset: 12-22-2022 Unclassified (1 source) Abrasion of right shoulder, initial encounter; Translations: [Abrasion of right shoulder, initial encounter] Onset: 12-15-2022 Past or Other Problems Problem Classification Problem Date Documented Date Episodic/Chronic Conditions associated with dizziness or vertigo (1 source) Dizziness and giddiness; Translations: [DIZZINESS AND GIDDINESS] Onset: 2 Episodic Coronary atherosclerosis and other heart disease (11 sources) Past history of procedure; Translations: [Percutaneous transluminal coronary angioplasty status] Onset: 3 11-08-2019 Episodic Comment on above: LAD/Diagonal; Nonspecific chest pain (13 sources) Chest pain; Translations: [Chest pain, unspecified] Onset: 3 04-02-2023 Episodic Other circulatory disease (20 sources) Orthostatic hypotension; Translations: [Orthostatic hypotension] Onset: 3 04-04-2023 Episodic Other circulatory disease (3 sources) Orthostatic hypotension; Translations: [Orthostatic hypotension] Onset: 3 04-04-2023 Episodic Other lower respiratory disease (15 sources) H/O: respiratory disease; Translations: [Personal history of other diseases of respiratory system] Resolved: 2 Episodic Other lower respiratory disease (2 sources) Dyspnea, unspecified; Translations: [Other respiratory abnormalities] Onset: 3 04-04-2023 Episodic Other screening for suspected conditions (not mental disorders or infectious disease) (20 sources) Electrocardiogram abnormal; Translations: [Nonspecific abnormal electrocardiogram [ECG] [EKG]] Onset: 3 12-15-2022 Episodic Pulmonary heart disease (20 sources) Pulmonary embolism; Translations: [Other pulmonary embolism and infarction] Onset: 3 06-12-2023 Episodic Residual codes; unclassified (15 sources) H/O: Disorder; Translations: [Personal history of other specified diseases] Resolved: 2 Episodic Residual codes; unclassified (11 sources) Never smoked any substance; Translations: [Other specified health status] Onset: 3 06-12-2023 Episodic Syncope (20 sources) Near syncope; Translations: [Syncope and collapse] Onset: 3 06-12-2023 Episodic Unclassified (15 sources) Never smoked tobacco; Translations: [Never a smoker] Unclassified (2 sources) Other ventricular tachycardia (CMS/HCC); Translations: [Other ventricular tachycardia (CMS/HCC)] Onset: 3 Results Test Name Value Interpretation Reference Range Facil ity Activated partial thrombopla stin time (aPTT) in platelet poor plasma by coagulation aOrdered By: José Luis Coleman on 09-14-2023 aPTT Coag (PPP) [Time] 35.2 s 25.1-36.5 [facility] Comment on above: A hematocrit value g reater than 55% may lead to inaccurate results in coagulation testing. Patients having hematocrit values >55% require a special collection tube for coagulation studies. Please contact the laboratory at [phone] for redraw instructions. Alanine aminotransferase [En zymatic activity/volume] in Serum or PlasmaOrdered By: José Luis Coleman on 09-14-2023 ALT [Catalytic activity/Vol] 21 U/L Normal 7-52 [facility] Comment on above: Performed By: #### H S TROP CK #### [address] Albumin [Mass/volume] in Ser um or Plasma by Bromocresol green (BCG) dye binding methoOrdered By: José Luis Coleman on 09-14-2023 Albumin BCG dye [Mass/Vol] 4.1 g/dL 3.5-5.7 [facility] Alkaline phosphatase [Enzyma tic activity/volume] in Serum or PlasmaOrdered By: José Luis Coleman on 09-14-2023 ALP [Catalytic activity/Vol] 73 U/L Normal 34-104 [facility] Comment on above: Performed By: #### H S TROP CK #### [address] Aspartate aminotransferase [ Enzymatic activity/volume] in Serum or PlasmaOrdered By: José Luis Coleman on 09-14-2023 AST [Catalytic activity/Vol] 19 U/L Normal 13-39 [facility] Comment on above: Performed By: #### H S TROP CK #### [facility] [address] [place] [address] [place] Automated basophil %Ordered By: José Luis Coleman on 09-14-2023 Basophils/100 WBC (Bld) 0.8 % Normal . [facility] Comment on above: Performed By: #### H S TROP, CK #### [place] [address] [place] Automated basophil countOrde red By: José Luis Coleman on 09-14-2023 Basophils (Bld) [#/Vol] 0.1 10*3/uL Normal 0.0-0.2 [facility] Comment on above: Result Comment: PERF ORMED BY: [place] [address] PATHOLOGIST DIESEL DRAGLINE OPERATOR MELANI GUTIÉRREZ M.D. Performed By: #### H S TROP, CK #### [address] Automated blood monocyte cou ntOrdered By: José Luis Coleman on 09-14-2023 Monocytes (Bld) [#/Vol] 0.7 10*3/uL Normal 0.0-0.8 [facility] Comment on above: Performed By: #### H S TROP, CK #### [address] Automated eosinophil %Ordere d By: José Luis Coleman on 09-14-2023 Eosinophils/100 WBC (Bld) 1.5 % Normal . [facility] Comment on above: Performed By: #### H S TROP, CK #### [address] Automated eosinophil countOr dered By: José Luis Coleman on 09-14-2023 Eosinophils (Bld) [#/Vol] 0.1 10*3/uL Normal 0.0-0.45 [facility] Comment on above: Performed By: #### H S TROP, CK #### [address] Automated monocyte %Ordered By: José Luis Coleman on 09-14-2023 Monocytes/100 WBC (Bld) 8.9 % Normal . [facility] Comment on above: Performed By: #### H S TROP, CK #### [address] Automated neutrophil %Ordere d By: José Luis Coleman on 09-14-2023 Neutrophils/100 WBC (Bld) 69.2 % Normal . [facility] Comment on above: Performed By: #### H S TROP, CK #### [address] BNP ser/plasOrdered By: Inez Coleman on 09-14-2023 Natriuretic peptide B (Bld) [Mass/Vol] 279.0 pg/mL High 5-100 [facility] Comment on above: Result Comment: PERF ORMED BY: [place] [address] PATHOLOGIST DIESEL DRAGLINE OPERATOR MELANI GUTIÉRREZ M.D. Performed By: #### H S TROP, CK #### [address] Basic Metabolic Panelon 08-20 Creatinine Clr Calc Pharmacy 94.74 Normal [facility] Comment on above: Result Comment: PERF ORMED BY: [place] [address] PATHOLOGIST DIESEL DRAGLINE OPERATOR MELANI GUTIÉRREZ M.D. Performed By: #### H S TROP, CK #### [address] GFR/1.73 sq M.predicted MDRD (S/P/Bld) [Vol rate/Area] mL/min/{1.73_m2} Normal [facility] Comment on above: Performed By: #### H S TROP, CK #### [address] Bilirubin.direct [Mass/volum e] in Serum or PlasmaOrdered By: José Luis Coleman on 09-14-2023 Bilirubin.direct [Mass/Vol] 0.20 mg/dL 0.03-0.18 [facility] Bilirubin.total [Mass/volume ] in Serum or PlasmaOrdered By: José Luis Coleman on 09-14-2023 Bilirubin [Mass/Vol] 0.7 mg/dL Normal 0.3-1.[address] [facility] Comment on above: Performed By: #### H S TROP, CK #### [address] Calcium [Mass/volume] in Ser um or PlasmaOrdered By: José Luis Coleman on 09-14-2023 Calcium [Mass/Vol] 9.4 mg/dL Normal 8.6-10.3 [facility] Comment on above: Performed By: #### H Reynaldo BEJARANO CK #### [address] Carbon dioxide, total [Moles /volume] in Serum or PlasmaOrdered By: José Luis Colemna on 09-14-2023 CO2 [Moles/Vol] 29.8 mmol/L Normal 21.0-31.0 [facility] Comment on above: Performed By: #### H Reynaldo BEJARANO CK #### [address] Chloride [Moles/volume] in S suad or PlasmaOrdered By: José Luis Coleman on 09-14-2023 Chloride [Moles/Vol] 104 mmol/L Normal 98-[address] [facility] Comment on above: Performed By: #### H Reynaldo BEJARANO CK #### [address] Complete Blood Count Auto Di ffon 09-14-2023 Mean Corpuscular HGB Conc 35.2 g/dL Normal 32.5-35.6 [facility] Comment on above: Performed By: #### H Reynaldo BEJARANO CK #### [address] Monocytes/100 WBC (Bld) 19.54 % Normal 0.00-20.00 [facility] Comment on above: Performed By: #### H Reynaldo BEJARANO CK #### [address] NRBC% 0.1 /100{WBC} Normal 0-0.5 [facility] Comment on above: Performed By: #### Concepcion BEJARANO CK #### [address] Creatine kinase [Enzymatic a ctivity/volume] in Serum or PlasmaOrdered By: José Luis Coleman on 09-14-2023 CK [Catalytic activity/Vol] 68 U/L Normal 30-223 [facility] Comment on above: Performed By: #### H S TROP, CK #### [facility] [address] [place] [address] Creatinine [Mass/volume] in Serum or PlasmaOrdered By: José Luis Coleman on 09-14-2023 Creatinine [Mass/Vol] 1.23 mg/dL Normal 0.70-1.30 [facility] Comment on above: Performed By: #### H S TROP, CK #### [facility] [address] [place] [address] ECG 12 lead ECGon 09-14-2023 ECG 12 lead ECG [facility] [place] [address] [place] [address] Electrocardiograph Report Signed Patient: Harriett Thakkar MR#: [id number] : 1965 Acct:[id number] Age/Sex: 58 / M ADM Date: 09/14/23 Loc: ER Room: Type: [facility] ER Attending Dr: Ordering Provider: José Luis Coleman DO Date of Service: 09/14/23 ECG/ECG 12 lead ECG: CHEST PAIN Copies to: Test Reason : Blood Pressure : 124/079 mmHG Vent. Rate : 103 BPM Atrial Rate : 258 BPM P-R Int : 000 ms QRS Dur : 094 ms QT Int : 416 ms P-R-T Axes : 000 087 010 degrees QTc Int : 544 ms Atrial flutter with variable AV block Low voltage QRS Cannot rule out Anteroseptal infarct (cited on or before 02-APR-2023) Prolonged QT Abnormal ECG When compared with ECG of 03-APR-2023 07:30, Atrial flutter has replaced Atrial fibrillation QRS axis shifted right Confirmed by José Luis Coleman DO ([id number]) on 09/14/2023 8:33:06 PM Referred By: Electronically Signed By:José Luis Coleman DO Transcribed By: MUS Signed By José Luis Coleman DO 2032 Normal [facility] Erythrocyte distribution wid th [Ratio] by Automated countOrdered By: José Luis Coleman on 09-14-2023 Erythrocyte distribution width (RBC) [Ratio] 15.8 % High 12.0-14.8 [facility] Comment on above: Performed By: #### H NELY RODRIGUEZ #### [facility] [address] Erythrocytes [#/volume] in B lood by Automated countOrdered By: José Luis Coleman on 09-14-2023 RBC (Bld) [#/Vol] 4.23 10*6/uL Normal 3.90-5.60 [facility] Comment on above: Performed By: #### H NELY RODRIGUEZ #### [facility] [address] Glucose [Mass/volume] in Ser um or PlasmaOrdered By: José Luis Coleman on 09-14-2023 Glucose [Mass/Vol] 84 mg/dL Normal 70-100 [facility] Comment on above: ADA recommended refe rence rangeRandom Glucose Reference Range is dependent on time and content of last meal. Glucose of more than 200 mg/dL in a nonstressed, ambulatory subject supports the diagnosis of Diabetes Mellitus. Result Comment: [place] om Glucose Reference Range is dependent on time and content of last meal. Glucose of more than 200 mg/dL in a nonstressed, ambulatory subject supports the diagnosis of Diabetes Mellitus. ADA recommended reference range Performed By: #### H NELY RODRIGUEZ #### [address] Hematocrit [Volume Fraction] of Blood by Automated countOrdered By: José Luis Coleman on 09-14-2023 Hematocrit (Bld) [Volume fraction] 39.4 % Normal 38.8-50.0 [facility] Comment on above: Performed By: #### H NELY RODRIGUEZ #### [facility] [address] Hemoglobin [Mass/volume] in BloodOrdered By: José Luis Coleman on 09-14-2023 Hemoglobin (Bld) [Mass/Vol] 13.9 g/dL Normal 13.0-17.0 [facility] Comment on above: Performed By: #### H NELY RODRIGUEZ #### [facility] [address] Hepatic Panelon 09-14-2023 Albumin [Mass/Vol] 4.1 g/dL Normal 3.5-5.7 [facility] Comment on above: Performed By: #### H S TROP, CK #### [facility] [address] Bilirubin,Indirect 0.5 mg/dL Normal [facility] Comment on above: Performed By: #### H S TROP, CK #### [facility] [address] Bilirubin.indirect [Mass/Vol] 0.20 mg/dL High 0.03-0.18 [facility] Comment on above: Performed By: #### H S TROP, CK #### [facility] [address] INR in Platelet poor plasma by Coagulation assayOrdered By: José Luis Coleman on 09-14-2023 INR Coag (PPP) [Relative time] 1.5 {INR} Normal [facility] Comment on above: INR Therapeutic Rang e A) Pre- and Peroperative OAT started two weeks before surgery. NOT HIP SURGERY: 1.5 - 2.5 HIP SURGERY: 2 - 3B) Primary and secondary prevention of venous THROMBOSIS: 2 - 3C) Active venous thrombosis, pulmonary embolismand prevention of recurrent venous thrombosis: 2 - 3D) Prevention of arterial thromboembolismincluding patients with mechanical heart valves: 3 - 4.5 Result Comment: INR Therapeutic Range A) Pre- and Peroperative OAT started two weeks before surgery. NOT HIP SURGERY: 1.5 - 2.5 HIP SURGERY: 2 - 3 B) Primary and secondary prevention of venous THROMBOSIS: 2 - 3 C) Active venous thrombosis, pulmonary embolism and prevention of recurrent venous thrombosis: 2 - 3 D) Prevention of arterial thromboembolism including patients with mechanical heart valves: 3 - 4.5 Performed By: #### H S TROP, CK #### [facility] [address] Leukocytes [#/volume] correc kaylee for nucleated erythrocytes in Blood by Automated counOrdered By: José Luis Coleman on 09-14-2023 WBC corrected for nucl RBC Auto (Bld) [#/Vol] 7.4 10*3/uL 4.1-10.5 [facility] Leukocytes [#/volume] in Blo od by Automated countOrdered By: José Luis Coleman on 09-14-2023 WBC (Bld) [#/Vol] 7.4 10*3/uL Normal 4.1-10.5 [facility] Comment on above: Performed By: #### H Reynaldo BEJARANO, CK #### [address] Lymphocytes [#/volume] in Bl ood by Automated countOrdered By: José Luis Coleman on 09-14-2023 Lymphocytes (Bld) [#/Vol] 1.4 10*3/uL Normal 1.00-4.8 [facility] Comment on above: Performed By: #### H Reynaldo BEJARANO, CK #### [address] Lymphocytes/100 leukocytes i n Blood by Automated countOrdered By: José Luis Coleman on 09-14-2023 Lymphocytes/100 WBC (Bld) 19.6 % Normal . [facility] Comment on above: Performed By: #### H Reynaldo BEJARANO, CK #### [address] MCH [Entitic mass] by Automa kaylee countOrdered By: José Luis Coleman on 09-14-2023 MCH (RBC) [Entitic mass] 32.7 pg Normal 27.5-35.2 [facility] Comment on above: Performed By: #### H S TROP, CK #### [address] MCHC Auto (RBC) [Mass/Vol]Or dered By: José Luis Coleman on 09-14-2023 MCHC (RBC) [Mass/Vol] 35.2 g/dL 32.5-35.6 [facility] MCV [Entitic volume] by Auto mated countOrdered By: José Luis Coleman on 09-14-2023 MCV (RBC) [Entitic vol] 93.0 fL Normal 83.5-101 [facility] Comment on above: Performed By: #### H S TROP, CK #### [place] [address] [place] Monocyte distribution width [Entitic volume] in Blood by AutomatedOrdered By: José Luis Coleman on 09-14-2023 Monocyte distribution width Auto (Bld) [Entitic vol] 19.54 % 0.00-20.00 [facility] Neutrophils [#/volume] in Bl ood by Automated countOrdered By: José Luis Coleman on 09-14-2023 Neutrophils (Bld) [#/Vol] 5.1 10*3/uL Normal 1.8-7.7 [facility] Comment on above: Performed By: #### H S TROP, CK #### [facility] [address] [place] [address] No Panel InformationOrdered By: José Luis Coleman on 09-14-2023 Estimated GFR (CKD-EPI) > 60.0 mL/Min [facility] Creatinine Clearance (Chem 94.74 [facility] Nucleated erythrocytes [Pres ence] in Blood by Automated countOrdered By: José Luis Coleman on 09-14-2023 Nucleated RBC Auto Ql (Bld) 0.1 /100{WBC} 0-0.5 [facility] Partial Thromboplastin Timeo n 09-14-2023 aPTT Coag (Bld) [Time] 35.2 s Normal 25.1-36.5 [facility] Comment on above: Result Comment: A he matocrit value greater than 55% may lead to inaccurate results in coagulation testing. Patients having hematocrit values >55% require a special collection tube for coagulation studies. Please contact the laboratory at [phone] for redraw instructions. PERFORMED BY: [place] [address] PATHOLOGIST DIESEL DRAGLINE OPERATOR MELANI GUTIÉRREZ M.D. Performed By: #### H S TROP, CK #### [facility] [address] [place] [address] Platelet mean volume [Entiti c volume] in Blood by Automated countOrdered By: José Luis Coleman on 09-14-2023 Platelet mean volume (Bld) [Entitic vol] 8.8 fL Normal 6.6-10.1 [facility] Comment on above: Performed By: #### H S TROP, CK #### [facility] [address] Platelets [#/volume] in Bloo d by Automated countOrdered By: José Luis Coleman on 09-14-2023 Platelets (Bld) [#/Vol] 197 10*3/uL Normal 150-450 [facility] Comment on above: Performed By: #### H S TROP, CK #### [address] Potassium [Moles/volume] in Serum or PlasmaOrdered By: José Luis Coleman on 09-14-2023 Potassium [Moles/Vol] 4.0 mmol/L Normal 3.5-5.1 [facility] Comment on above: Performed By: #### H S TROP, CK #### [address] Protein [Mass/volume] in Ser um or PlasmaOrdered By: José Luis Coleman on 09-14-2023 Protein [Mass/Vol] 6.4 g/dL Normal 6.4-8.9 [facility] Comment on above: Performed By: #### H S TROP, CK #### [address] Prothrombin time (PT)Ordered By: José Luis Coleman on 09-14-2023 PT Coag (PPP) [Time] 16.7 s High 9.0-12.[address] [facility] Comment on above: A hematocrit value g reater than 55% may lead to inaccurate results in coagulation testing. Patients having hematocrit values >55% require a special collection tube for coagulation studies. Please contact the laboratory at [phone] for redraw instructions. Result Comment: A he matocrit value greater than 55% may lead to inaccurate results in coagulation testing. Patients having hematocrit values >55% require a special collection tube for coagulation studies. Please contact the laboratory at [phone] for redraw instructions. Performed By: #### H S TROP, CK #### [address] Serum globulin measurement b y calculation (mass/volume)Ordered By: José Lius Coleman on 09-14-2023 Globulin (S) [Mass/Vol] 2.3 g/dL Normal [facility] Comment on above: Performed By: #### H S TROP, CK #### [address] Serum or plasma albumin/glob ulin mass ratioOrdered By: José Luis Coleman on 09-14-2023 Albumin/Globulin [Mass ratio] 1.8 {ratio} Normal [facility] Comment on above: Performed By: #### H S TROP, CK #### [address] Serum or plasma anion gap de terminationOrdered By: José Luis Coleman on 09-14-2023 Anion gap [Moles/Vol] 7.2 mmol/L Normal 6.0-15.0 [facility] Comment on above: Performed By: #### H S TROP, CK #### [address] Serum or plasma non-glucuron idated bilirubin measurement (mass/volume)Ordered By: José Luis Coleman on 09-14-2023 Bilirubin.indirect [Mass/Vol] 0.5 mg/dL [facility] Sodium [Moles/volume] in Ser um or PlasmaOrdered By: José Luis Coleman on 09-14-2023 Sodium [Moles/Vol] 137 mmol/L Normal 136-145 [facility] Comment on above: Performed By: #### H S TROP, CK #### [address] Troponin I High Sensitivityo n 09-14-2023 Troponin I High Sensitivity 13.7 pg/mL Normal 0.0-20.0 [facility] Comment on above: Result Comment: PERF ORMED BY: [place] [address] PATHOLOGIST DIESEL DRAGLINE OPERATOR MELANI GUTIÉRREZ M.D. Performed By: #### H S TROP, CK #### [address] Troponin I.cardiac [Mass/vol ume] in Serum or Plasma by Detection limit <= 0.01 ng/Ordered By: José Luis Coleman on 09-14-2023 Troponin I.cardiac DL <= 0.01 ng/mL [Mass/Vol] 13.7 pg/mL 0.0-20.0 [facility] Urea nitrogen [Mass/volume] in Serum or PlasmaOrdered By: José Luis Coleman on 09-14-2023 Urea nitrogen [Mass/Vol] 20 mg/dL Normal 7-25 [facility] Comment on above: Performed By: #### H S TROP, CK #### [address] XR chest 1V portableon 09-14 XR chest 1V portable [facility] [place] [address] [place] [address] XRay Report Signed Patient: Harriett Thakkar MR#: [id number] : 1965 Acct:[id number] Age/Sex: 58 / M ADM Date: 09/14/23 Loc: ER Room: Type: [facility] ER Attending Dr: Copies to: José Luis Coleman DO Ordering Provider: José Luis Coleman DO Date of Service: 09/14/23 XR/XR chest 1V portable: CHEST PAIN Plain film chest Single view HISTORY: Chest pain shortness of breath COMPARISON: 04/02/2023 FINDINGS: SUPPORT DEVICES: None POSTSURGICAL CHANGES: Cardiac device intact. HEART: Within normal limits PULMONARY SHIRLEY: Within normal limits MEDIASTINUM: Unremarkable LUNGS AND PLEURA: No acute lung process, pleural effusion or pneumothorax identified. BONY STRUCTURES: Intact ADDITIONAL FINDINGS None XR/XR chest 1V portable IMPRESSION: No acute process. Impression dictated by: Michele Maldonado M.D.09/14/2023 8:45 PM Dictation Location: [place] [address] Transcribed By: [facility] 09/14/232044 Dictated By: Michele Maldonado DO 09/14/232043 Signed By: 09/14/232044 [facility] Glucose Test strip manual (B ld) [Mass/Vol]on 08-31-2023 Glucose [Mass/Vol] 262 mg/dL High 74-99 [facility] Comment on above: Performed By: #### 3 4529-8 #### TD PERALTA ([id number]) [facility] ([facility]) [address] [place] [address] Glucose [Mass/Vol] 262 mg/dL High 74 - 99 mg/dL [facility] Interpretation and review of laboratory results Abnormal [facility] Glucose [Mass/Vol] 254 mg/dL High 74-99 [facility] Comment on above: Performed By: #### 3 4529-8 #### TD PERALTA ([id number]) [facility]) [address] [place] [address] Glucose [Mass/Vol] 254 mg/dL High 74 - 99 mg/dL [facility] Interpretation and review of laboratory results Abnormal [facility] Glucose [Mass/Vol] 140 mg/dL High 74-99 [facility] Comment on above: Performed By: #### 3 4529-8 #### TD PERALTA ([id number]) [facility]) [address] [place] [address] Glucose [Mass/Vol] 140 mg/dL High 74 - 99 mg/dL [facility] Interpretation and review of laboratory results Abnormal [facility] XR Chest Single viewon 08-31 1. Mild right hilar prominence, possibly secondary to adenopathy. Otherwise, evidence of acute cardiopulmonary process. Signed by: Kevin Loco 08/31/2023 6:27 PM Dictation workstation: [id number] Interpreted By: Kevin Loco, STUDY: XR CHEST 1 VIEW; 08/30/2023 2:29 pm INDICATION: Signs/Symptoms:short of breath. COMPARISON: Chest radiograph 06/30/2023 ACCESSION NUMBER(S): [id number] ORDERING CLINICIAN: NATHAN AU FINDINGS: AP radiograph of the chest was provided. DEVICES: Stable left-sided ICD. CARDIOMEDIASTINAL SILHOUETTE: Cardiomediastinal silhouette is stable in size and configuration.Athero sclerotic calcifications of the aortic arch. LUNGS: Mild right hilar prominence, compared with the prior radiograph possibly secondary to adenopathy. Otherwise no focal consolidation. No pneumothorax. No pleural effusion. BONES: No acute osseous changes. Kevin Boateng MD - 08/31/2023 Interpreted By: Kevin Loco, STUDY: XR CHEST 1 VIEW; 08/30/2023 2:29 pm INDICATION: Signs/Symptoms:short of breath. COMPARISON: Chest radiograph 06/30/2023 ACCESSION NUMBER(S): [id number] ORDERING CLINICIAN: NATHAN AU FINDINGS: AP radiograph of the chest was provided. DEVICES: Stable left-sided ICD. CARDIOMEDIASTINAL SILHOUETTE: Cardiomediastinal silhouette is stable in size and configuration.Athero sclerotic calcifications of the aortic arch. LUNGS: Mild right hilar prominence, compared with the prior radiograph possibly secondary to adenopathy. Otherwise no focal consolidation. No pneumothorax. No pleural effusion. BONES: No acute osseous changes. IMPRESSION: 1. Mild right hilar prominence, possibly secondary to adenopathy. Otherwise, evidence of acute cardiopulmonary process. Signed by: Kevin Loco 08/31/2023 6:27 PM Dictation workstation: [id number] [facility] Work Phone: XR Chest Single viewOrdered By: Kevin Loco on 08-31-2023 [facility] Work Phone: ECG 12-LEADon 08-30-2023 ECG 12-LEAD Ventricular Rate 99 Atrial Rate 99 P-R Interval 216 QRS Duration 90 Q-T Interval 370 QTC Calculation(Bazett) 474 P Dewey 57 R Dewey 56 T Dewey -6 QRS Count 16 Q Onset 221 P Onset 113 P Offset 183 T Offset 406 QTC Fredericia 437 Diagnosis Sinus rhythm with 1st degree AV block Low voltage QRS Cannot rule out Anteroseptal infarct (cited on or before 29-JUN-2023) Abnormal ECG When compared with ECG of 30-AUG-2023 08:36, (unconfirmed) No significant change was found Normal [facility] Glucose Test strip manual (B ld) [Mass/Vol]on 12-12-2023 Glucose [Mass/Vol] 205 mg/dL High 74-99 [facility] Comment on above: Performed By: #### 3 4529-8 #### TD PERALTA ([id number]) [facility]) [address] [place] [address] Glucose [Mass/Vol] 205 mg/dL High 74 - 99 mg/dL [facility] Interpretation and review of laboratory results Abnormal [facility] Glucose [Mass/Vol] 189 mg/dL High 74-99 [facility] Comment on above: Performed By: #### 3 4529-8 #### TD PERALTA ([id number]) [facility] ([facility]) [address] [place] [address] Glucose [Mass/Vol] 189 mg/dL High 74 - 99 mg/dL [facility] Interpretation and review of laboratory results Abnormal [facility] Glucose [Mass/Vol] 247 mg/dL High 74 - 99 mg/dL [facility] Interpretation and review of laboratory results Abnormal [facility] Glucose [Mass/Vol] 247 mg/dL High 74-99 [facility] Comment on above: Performed By: #### 3 4529-8 #### TD PERALTA ([id number]) [facility] ([facility]) [address] [place] [address] Glucose [Mass/Vol] 174 mg/dL High 74-99 [facility] Comment on above: Performed By: #### 3 4529-8 #### TD PERALTA ([id number]) [facility] ([facility]) [address] [place] [address] Glucose [Mass/Vol] 174 mg/dL High 74 - 99 mg/dL [facility] Interpretation and review of laboratory results Abnormal [facility] XR CHEST 1 VIEWon 08-30-2023 XR CHEST 1 VIEW Interpreted By: Kevin Loco, STUDY: XR CHEST 1 VIEW; 08/30/2023 2:29 pm INDICATION: Signs/Symptoms:short of breath. COMPARISON: Chest radiograph 06/30/2023 ACCESSION NUMBER(S): [id number] ORDERING CLINICIAN: NATHAN AU FINDINGS: AP radiograph of the chest was provided. DEVICES: Stable left-sided ICD. CARDIOMEDIASTINAL SILHOUETTE: Cardiomediastinal silhouette is stable in size and configuration.Athero sclerotic calcifications of the aortic arch. LUNGS: Mild right hilar prominence, compared with the prior radiograph possibly secondary to adenopathy. Otherwise no focal consolidation. No pneumothorax. No pleural effusion. BONES: No acute osseous changes. IMPRESSION: 1. Mild right hilar prominence, possibly secondary to adenopathy. Otherwise, evidence of acute cardiopulmonary process. Signed by: Kevin Loco 08/31/2023 6:27 PM Dictation workstation: [id number] [facility] XR Chest Single viewon 08-30 Radiology Study observation (narrative) [facility] Work Phone: Activated clotting timeon ACT Coag (Bld) [address] Comment on above: Result Comment: Targ et ACT range will vary based on the patient population, clinical status, and surgical intervention occurring. Performed By: #### 3 4529-8 #### TD PERALTA ([id number]) [facility] ([facility]) [address] [place] [address] ACT Coag (Bld) [address] Comment on above: Result Comment: Targ et ACT range will vary based on the patient population, clinical status, and surgical intervention occurring. Performed By: #### 2 341-6 #### TD PERALTA ([id number]) [facility] [address] [place] [address] ACT Coag (Bld) [address] Comment on above: Result Comment: Targ et ACT range will vary based on the patient population, clinical status, and surgical intervention occurring. Performed By: #### 2 341-6 #### TD PERALTA ([id number]) [facility] [address] [place] [address] ACT Coag (Bld) [address] Comment on above: Result Comment: Targ et ACT range will vary based on the patient population, clinical status, and surgical intervention occurring. Performed By: #### 3 4529-8 #### TD PERALTA ([id number]) [facility] [address] [place] [address] ACT Coag (Bld) [address] Comment on above: Result Comment: Targ et ACT range will vary based on the patient population, clinical status, and surgical intervention occurring. Performed By: #### 2 341-6 #### TD PERALTA ([id number]) [facility] ([facility]) [address] [place] [address] ACT Coag (Bld) [address] Comment on above: Result Comment: Targ et ACT range will vary based on the patient population, clinical status, and surgical intervention occurring. Performed By: #### 2 341-6 #### TD PERALTA ([id number]) [facility] [address] [place] [address] ACT Coag (Bld) [address] Comment on above: Result Comment: Targ et ACT range will vary based on the patient population, clinical status, and surgical intervention occurring. Performed By: #### 2 341-6 #### TD PERALTA ([id number]) [facility] [address] [place] [address] ACT Coag (Bld) [address] Comment on above: Result Comment: Targ et ACT range will vary based on the patient population, clinical status, and surgical intervention occurring. Performed By: #### 2 341-6 #### TD PERALTA ([id number]) [facility] [address] [place] [address] Coagulation tissue factor in ducedon 08-29-2023 PT Coag (PPP) [Time] 14.9 s High 9.8-12.8 [facility] Comment on above: Performed By: #### 5 902-2 #### TD KATHRYN ([id number]) [facility] ([facility]) [address] [place] [address] ECG 12-LEADon 08-29-2023 ECG 12-LEAD Ventricular Rate 75 Atrial Rate 326 QRS Duration 90 Q-T Interval 390 QTC Calculation(Bazett) 435 R Dewey 63 T Dewey 14 QRS Count 12 Q Onset 217 T Offset 412 QTC Fredericia 419 Diagnosis Atrial fibrillation with occasional ventricular-paced complexes Low voltage QRS Cannot rule out Anteroseptal infarct , age undetermined Abnormal ECG Confirmed by Brice Young ([id number]) on 09/02/2023 3:53:55 PM Normal [facility] Electrophysiology studyon Addendum by Lior Villeda MD on 08/29/2023 1:59 PM EST Persistent Atrial Fibrillation ablation Procedures Atrial Fibrillation ablation (13683), LA Pacing and recording (33448), 3D Mapping (44881), Intracardiac Echocardiogram (26026), Transseptal Catheterization (64751), Ultrasound Guided vascular access (36503),Additional Afib Ablation (65697) Direct current cardioversion (46750) Patient history: Please refer to the detailed history and physical on the patient's medical chart. Procedure narrative: The patient was in the fasting state. A baseline ECG was recorded and showed Atrial fibrillation. The patient was set up for continuous monitoring of surface 12 lead ECG and pulse oximetry. Blood pressure was monitored with automatic cuff measurements. Bilateral groins were clipped, prepped with chlorhexidine, and draped in the usual sterile fashion. Local anesthesia: Subcutaneous tissues were infiltrated with Lidocaine 1% 10 mL to the bilateral groin for local anesthesia. The procedure was performed under general anesthesia (administered and monitored by commercial insurance underwriter and [employer]YOR). Anesthesia sedated and intubated the patient without any acute complications. Radial arterial line was placed for continuous hemodynamic monitoring. Indwelling oconnor catheter was placed for strict intake and output measurement. Given pt's Subtherapeutic INR - transesophageal echocardiogram was performed after sedation and intubation, by Cardiology (Dr. Cunha) and NELSON clot was ruled out. The bilateral femoral vein was accessed x 3 using the modified Seldinger technique. 3 sheaths were inserted. The right common femoral vein was evaluated with ultrasound, it was normal in size and anatomy. The vein was accessed using ultrasound guidance and a 18G Cook needle, with direct visualization of the needle at all times. Similarly the left common femoral vein was also evaluated with ultrasound and access was obtained with ultrasound guidance and direct visualization. Images were saved for both vein accesses. Over the guidewires an 8F and 10F sheaths were inserted into the right femoral vein. A 7F sheath was also introduced into the left femoral vein. Via the 7F femoral venous access a Octapolar catheter was introduced and placed into the distal coronary sinus. The right femoral 7F vein access was then switched to a deflectable sheath Medium curl Agilis Under fluoroscopic guidance a intracardiac echocardiogram catheter was introduced into the right atrium. The right atrium, left atrium, left atrial appendage, RV were evaluated. No obvious structural abnormalities were noted. Initial imaging revealed No pericardial effusion. 01925 units of heparin were given and a drip at 500 units/hr was initiated. ACT was monitored and recorded at regular intervals throughout the case. Please see case log for ACT details. Device Interrogation CIED (Dual chamber ICD) was interrogated at the beginning of the case. ICD therapies were turned off Lead impedances, thresholds and sensing were tested and all recorded to be stable and at baseline. Pacing mode was changed to VVI. Transseptal catheterization: Under fluoroscopic and intracardiac echo guidance BRK needle was introduced via the Medium curl Agilis and single transseptal catheterization was performed. Guidewire was then introduced through the transseptal puncture and advanced to the left superior pulmonary vein. Using the guidewire as a rail, septostomy site was dilated to allow the sheath to be placed into the left atrium. The deflectable sheath was connected to a pressurized bag of heparinized saline with slow continuous infusion. 3D mapping: A 3D shell using the 3D electroanatomic mapping was made with the mapping catheter (HD Grid). Areas of fractionated signals, low voltage and Anatomy/OS of pulmonary veins were marked. At this point the deflectable sheath was brought back into the left atrium and the high-definition mapping catheter was removed. The ablation catheter TactiFlex RF was then introduced via the sheath into the left atrium. Ablation: During ablation esophageal temperature monitoring was utilized throughout the procedure. The temperature range noted during the procedure was from 36.7 to 37.5 degrees Celsius. For majority of the lesions high power short duration lesions were performed with power of 45W and 10-15s lesions along posterior wall and roof, and 10-20s lesions along the anterior wall. Lesions were tagged using Impedance change and target impedance drop for a abation lesion was atleast 10ohms. Distal local EGMs were also noted to be attenuated after each lesion application. Along the anterior aspect of the right pulmonary veins we mapped for phrenic capture. Ablation points along this region were performed in a manner to avoid any areas with phrenic capture. Post ablati (more content not included)... [facility] Work Phone: [facility] Work Phone: Glucose Test strip manual (B ld) [Mass/Vol]on 08-29-2023 Glucose [Mass/Vol] 216 mg/dL High 74-99 [facility] Comment on above: Performed By: #### 2 341-6 #### TD PERALTA ([id number]) [facility] ([facility]) [address] [place] [address] Glucose [Mass/Vol] 216 mg/dL High 74 - 99 mg/dL [facility] Interpretation and review of laboratory results Abnormal [facility] Glucose [Mass/Vol] 226 mg/dL High 74-99 [facility] Comment on above: Performed By: #### 2 341-6 #### TD PERALTA ([id number]) [facility] ([facility]) [address] [place] [address] Glucose [Mass/Vol] 226 mg/dL High 74 - 99 mg/dL [facility] Interpretation and review of laboratory results Abnormal [facility] PT Coag (PPP) [Time]on 08-29 INR Coag (PPP) [Relative time] 1.3 High 0.9-1.1 [facility] Comment on above: Performed By: #### 5 902-2 #### TD PERALTA ([id number]) [facility]) [address] [place] [address] INR Coag (PPP) [Relative time] 1.3 {INR} High 0.9 - 1.1 [facility] Interpretation and review of laboratory results Abnormal [facility] Protime-INRon 08-29-2023 PT Coag (PPP) [Time] 14.9 s High [facility] TRANSESOPHAGEAL ECHO (CLEO)on 08-29-2023 TRANSESOPHAGEAL ECHO (CLEO) [facility], [address] [facility] [address]Nde [phone] and TRANSESOPHAGEAL ECHOCARDIOGRAM REPORT Patient Name: HARRIETT Shine Physician: [id number] Guille Cunha MD Study Date: 08/29/2023 Ordering Provider: [id number] VILLEDA MRN/PID: [id number] Fellow: Nurse: Date of /Age: 6 1965 / 58 years Ekg Tech: MACK Gorman RDCS Gender: M Additional Staff: Height: 187.96 cm Admit Date: 08/29/2023 Weight: 145.61 kg Admission Status: Outpatient BSA: 2.66 m2 Department Location: [facility] Blood Pressure: 157 /92 mmHg Study Type: TRANSESOPHAGEAL ECHO (CLEO) Diagnosis/ICD: Unspecified atrial fibrillation-I48.91 Indication: Abnormal EKG CPT Code: CLEO Complete-91703; Doppler Limited-63436; Color Doppler-03156 Patient History: Pertinent History: A-Fib, HTN, Hyperlipidemia, CAD and Syncope. Arrhythmia. Study Detail: The following Echo studies were performed: 2D, Doppler and color flow. Technically challenging study due to patient lying in supine position. Patient has a pacemaker. The patient was sedated. PHYSICIAN INTERPRETATION: CLEO Details: Technically adequate omniplane transesophageal echocardiogram performed. Color flow Doppler echo was performed to assess for the presence of a patent foramen ovale. CLEO Medication: The patient was sedated by Anesthesia; please refer to anesthesia flow sheet for medications used. CLEO Procedure: The probe was passed without difficulty. The patient tolerated the procedure well without any apparent complications. Left Ventricle: The left ventricular systolic function is low normal, with an estimated ejection fraction of 50-55%. There are no regional wall motion abnormalities. The left ventricular cavity size is normal. Abnormal (paradoxical) septal motion, consistent with RV pacemaker. Left ventricular diastolic filling was not assessed. Left Atrium: The left atrium is upper limits of normal in size. There is no definite left atrial thrombus present. Increased thickness of the atrial septum (sparing the fossa ovalis) is present. This is consistent with lipomatous hypertrophy of the atrial septum. The left atrial appendage is small, the left atrial appendage Doppler velocities are mildly reduced, there is no thrombus visualized in the left atrial appendage and there is no spontaneous contrast noted in the left atrial appendage. Right Ventricle: The right ventricle is normal in size. There is normal right ventricular global systolic function. A device is visualized in the right ventricle. Right Atrium: The right atrium is normal in size. There is a device visualized in the right atrium. Aortic Valve: The aortic valve is trileaflet. There is no evidence of aortic valve regurgitation. Mitral Valve: The mitral valve is mildly thickened. There is trace mitral valve regurgitation. Tricuspid Valve: The tricuspid valve is structurally normal. There is trace tricuspid regurgitation. The Doppler estimated RVSP is within normal limits. Pulmonic Valve: The pulmonic valve is structurally normal. There is trace pulmonic valve regurgitation. Pericardium: There is a trivial pericardial effusion. Aorta: The aortic root is normal. There is no dilatation of the aortic arch. There is no dilatation of the ascending aorta. There is no dilatation of the aortic root. There is no plaque visualized in the ascending aorta. There is no plaque visualized in the transverse aorta. There is plaque visualized in the descending aorta which is classified as a Grade 2 [mild (focal or diffuse) intimal thickening of 2-3 mm] atherosclerosis. CONCLUSIONS: 1. Left ventricular systolic function is low normal with a 50-55% estimated ejection fraction. 2. Abnormal septal motion consistent with RV pacemaker. 3. RVSP within normal limits. 4. Lipomatous hypertrophy of the atrial septum. 5. No left atrial thrombus. QUANTITATIVE DATA SUMMARY: [id number] Guille Cunha MD Electronically signed on 08/29/2023 at 9:33:09 AM Final [facility] US Heart Transesophagealon 1 10-30-2022 [facility], [address] [facility] [facility] [address]Ekl [phone] and TRANSESOPHAGEAL ECHOCARDIOGRAM REPORT Patient Name: HARRIETT THAKKAR Fátima Physician: [id number] Guille Cunha MD Study Date: 08/29/2023 Ordering Provider: [id number] LIOR VILLEDA MRN/PID: [id number] Fellow: Nurse: Date of /Age: 6 1965 / 58 years Ekg Tech: MACK Gorman RDCS Gender: M Additional Staff: Height: 187.96 cm Admit Date: 08/29/2023 Weight: 145.61 kg Admission Status: Outpatient BSA: 2.66 m2 Department Location: [facility] Blood Pressure: 157 /92 mmHg Study Type: TRANSESOPHAGEAL ECHO (CLEO) Diagnosis/ICD: Unspecified atrial fibrillation-I48.91 Indication: Abnormal EKG CPT Code: CLEO Complete-66235; Doppler Limited-43156; Color Doppler-88185 Patient History: Pertinent History: A-Fib, HTN, Hyperlipidemia, CAD and Syncope. Arrhythmia. Study Detail: The following Echo studies were performed: 2D, Doppler and color flow. Technically challenging study due to patient lying in supine position. Patient has a pacemaker. The patient was sedated. PHYSICIAN INTERPRETATION: CLEO Details: Technically adequate omniplane transesophageal echocardiogram performed. Color flow Doppler echo was performed to assess for the presence of a patent foramen ovale. CLEO Medication: The patient was sedated by Anesthesia; please refer to anesthesia flow sheet for medications used. CLEO Procedure: The probe was passed without difficulty. The patient tolerated the procedure well without any apparent complications. Left Ventricle: The left ventricular systolic function is low normal, with an estimated ejection fraction of 50-55%. There are no regional wall motion abnormalities. The left ventricular cavity size is normal. Abnormal (paradoxical) septal motion, consistent with RV pacemaker. Left ventricular diastolic filling was not assessed. Left Atrium: The left atrium is upper limits of normal in size. There is no definite left atrial thrombus present. Increased thickness of the atrial septum (sparing the fossa ovalis) is present. This is consistent with lipomatous hypertrophy of the atrial septum. The left atrial appendage is small, the left atrial appendage Doppler velocities are mildly reduced, there is no thrombus visualized in the left atrial appendage and there is no spontaneous contrast noted in the left atrial appendage. Right Ventricle: The right ventricle is normal in size. There is normal right ventricular global systolic function. A device is visualized in the right ventricle. Right Atrium: The right atrium is normal in size. There is a device visualized in the right atrium. Aortic Valve: The aortic valve is trileaflet. There is no evidence of aortic valve regurgitation. Mitral Valve: The mitral valve is mildly thickened. There is trace mitral valve regurgitation. Tricuspid Valve: The tricuspid valve is structurally normal. There is trace tricuspid regurgitation. The Doppler estimated RVSP is within normal limits. Pulmonic Valve: The pulmonic valve is structurally normal. There is trace pulmonic valve regurgitation. Pericardium: There is a trivial pericardial effusion. Aorta: The aortic root is normal. There is no dilatation of the aortic arch. There is no dilatation of the ascending aorta. There is no dilatation of the aortic root. There is no plaque visualized in the ascending aorta. There is no plaque visualized in the transverse aorta. There is plaque visualized in the descending aorta which is classified as a Grade 2 [mild (focal or diffuse) intimal thickening of 2-3 mm] atherosclerosis. CONCLUSIONS: 1. Left ventricular systolic function is low normal with a 50-55% estimated ejection fraction. 2. Abnormal septal motion consistent with RV pacemaker. 3. RVSP within normal limits. 4. Lipomatous hypertrophy of the atrial septum. 5. No left atrial thrombus. QUANTITATIVE DATA SUMMARY: [id number] Guille Cunha MD Electronically signed on 08/29/2023 at 9:33:09 AM Final Guille Xavier MD PhD - 08/29/2023 [facility], [address] [place] [id number] [phone] and TRANSESOPHAGEAL ECHOCARDIOGRAM REPORT Patient Name: HARRIETT THAKKAR Fátima Physician: [id number] Guille Cunha MD Study Date: 08/29/2023 Ordering Provider: [id number] VILLEDA MRN/PID: [id number] Fellow: Nurse: Date of /Age: 6 1965 / 58 years Ekg Tech: MACK Gorman RDCS Gender: M Additional Staff: Height: 187.96 cm Admit Date: 08/29/2023 Weight: 145.61 kg Admission Status: Outpatient BSA: 2.66 m2 Department Location: [facility] Blood Pressure: 157 /92 mmHg Study Type: TRANSESOPHAGEAL ECHO (CLEO) Diagnosis/ICD: Unspecified atrial fibrillation-I48.91 Indication: Abnormal EKG CPT Code: CLEO Complete-49697; Doppler Limited-10278; Color Doppler-90471 Patient History: Pertinent History: A-Fib, HTN, Hyperlipidemia, CAD and Syncope. Arrhythmia. Study Detail: The following Echo studies were performed: 2D, Doppler and color flow. Technically challenging study due to patient lying in supine position. Patient has a pacemaker. The patient was sedated. PHYSICIAN INTERPRETATION: CLEO Details: Technically adequate omniplane transesophageal echocardiogram performed. Color flow Doppler echo was performed to assess for the presence of a patent foramen ovale. CLEO Medication: The patient was sedated by Anesthesia; please refer to anesthesia flow sheet for medications used. CLEO Procedure: The probe was passed without difficulty. The patient tolerated the procedure well without any apparent complications. Left Ventricle: The left ventricular systolic function is low normal, with an estimated ejection fraction of 50-55%. There are no regional wall motion abnormalities. The left ventricular cavity size is normal. Abnormal (paradoxical) septal motion, consistent with RV pacemaker. Left ventricular diastolic filling was not assessed. Left Atrium: The left atrium is upper limits of normal in size. There is no definite left atrial thrombus present. Increased thickness of the atrial septum (sparing the fossa ovalis) is present. This is consistent with lipomatous hypertrophy of the atrial septum. The left atrial appendage is small, the left atrial appendage Doppler velocities are mildly reduced, there is no thrombus visualized in the left atrial appendage and there is no spontaneous contrast noted in the left atrial appendage. Right Ventricle: The right ventricle is normal in size. There is normal right ventricular global systolic function. A device is visualized in the right ventricle. Right Atrium: The right atrium is normal in size. There is a device visualized in the right atrium. Aortic Valve: The aortic valve is trileaflet. There is no evidence of aortic valve regurgitation. Mitral Valve: The mitral valve is mildly thickened. There is trace mitral valve regurgitation. Tricuspid Valve: The tricuspid valve is structurally normal. There is trace tricuspid regurgitation. The Doppler estimated RVSP is within normal limits. Pulmonic Valve: The pulmonic valve is structurally normal. There is trace pulmonic valve regurgitation. Pericardium: There is a trivial pericardial effusion. Aorta: The aortic root is normal. There is no dilatation of the aortic arch. There is no dilatation of the ascending aorta. There is no dilatation of the aortic root. There is no plaque visualized in the ascending aorta. There is no plaque visualized in the transverse aorta. There is plaque visualized in the descending aorta which is classified as a Grade 2 [mild (focal or diffuse) intimal thickening of 2-3 mm] atherosclerosis. CONCLUSIONS: 1. Left ventricular systolic function is low normal with a 50-55% estimated ejection fraction. 2. Abnormal septal motion consistent with RV pacemaker. 3. RVSP within normal limits. 4. Lipomatous hypertrophy of the atrial septum. 5. No left atrial thrombus. QUANTITATIVE DATA SUMMARY: [id number] Guille Cunha MD Electronically signed on 08/29/2023 at 9:33:09 AM Final [facility] Work Phone: US Heart TransesophagealOrde red By: Guille Cunha on 08-29-2023 [facility] Work Phone: Basic metabolic 2000 panelon 08-09-2023 Anion gap [Moles/Vol] 14 mmol/L Normal 10-20 [facility] Comment on above: Performed By: #### 2 4321-2 #### TD PERALTA ([id number]) [facility] ([facility]) [address] [place] [address] Calcium [Mass/Vol] 8.6 mg/dL Normal 8.6-10.3 [facility] Comment on above: Performed By: #### 2 4321-2 #### TD PERALTA ([id number]) [facility] ([facility]) [address] [place] [address] Chloride [Moles/Vol] 104 mmol/L Normal 98-107 [facility] Comment on above: Performed By: #### 2 4321-2 #### TD PERALTA ([id number]) [facility] ([facility]) [address] [place] [address] CO2 [Moles/Vol] 27 mmol/L Normal 21-32 [facility] Comment on above: Performed By: #### 2 4321-2 #### TD PERALTA ([id number]) [facility] ([facility]) [address] [place] [address] Creatinine [Mass/Vol] 1.13 mg/dL Normal 0.50-1.30 [facility] Comment on above: Performed By: #### 2 4321-2 #### TD PERALTA ([id number]) [facility] ([facility]) [address] [place] [address] GFR/1.73 sq M.predicted MDRD (S/P/Bld) [Vol rate/Area] 74 mL/min/1.73m*2 Normal >60 [facility] Comment on above: Result Comment: Calc ulations of estimated GFR are performed using the 2020 CKD-EPI Study Refit equation without the race variable for the IDMS-Traceable creatinine methods. https://jasn.asnjournals.org/content/early/ASN.9614152 988 Performed By: #### 2 432-2 #### TD PERALTA ([id number]) [facility] ([facility]) [address] [place] [address] Glucose [Mass/Vol] 186 mg/dL High 74-99 [facility] Comment on above: Performed By: #### 2 4321-2 #### TD PERALTA ([id number]) [facility] ([facility]) [address] [place] [address] Potassium [Moles/Vol] 4.2 mmol/L Normal 3.5-5.3 [facility] Comment on above: Performed By: #### 2 4321-2 #### TD PERALTA ([id number]) [facility] ([facility]) [address] [place] [address] Sodium [Moles/Vol] 141 mmol/L Normal 136-145 [facility] Comment on above: Performed By: #### 2 4321-2 #### TD PERALTA ([id number]) [facility] ([facility]) [address] [place] [address] Urea nitrogen [Mass/Vol] 22 mg/dL Normal 6-23 [facility] Comment on above: Performed By: #### 2 4321-2 #### TD PERALTA ([id number]) [facility] ([facility]) [address] [place] [address] CBC panel Auto (Bld)on 08-09 Erythrocyte distribution width (RBC) [Ratio] 14.2 % Normal 11.5-14.5 [facility] Comment on above: Performed By: #### 5 8410-2 #### TD PERALTA ([id number]) [facility] ([facility]) [address] [place] [address] Hematocrit (Bld) [Volume fraction] 43.9 % Normal 41.0-52.0 [facility] Comment on above: Performed By: #### 5 8410-2 #### TD PERALTA ([id number]) [facility] ([facility]) [address] [place] [address] Hemoglobin (Bld) [Mass/Vol] 15.2 g/dL Normal 13.5-17.5 [facility] Comment on above: Performed By: #### 5 8410-2 #### TD PERALTA ([id number]) [facility] ([facility]) [address] [place] [address] MCH (RBC) [Entitic mass] 33.6 pg Normal 26.0-34.0 [facility] Comment on above: Performed By: #### 5 8410-2 #### TD PERALTA ([id number]) [facility] ([facility]) [address] [place] [address] MCHC (RBC) [Mass/Vol] 34.6 g/dL Normal 32.0-36.0 [facility] Comment on above: Performed By: #### 5 8410-2 #### TD PERALTA ([id number]) [facility] ([facility]) [address] [place] [address] MCV (RBC) [Entitic vol] 97 fL Normal 80-100 [facility] Comment on above: Performed By: #### 5 8410-2 #### TD PERALTA ([id number]) [facility] ([facility]) [address] [place] [address] Nucleated RBC/100 WBC (Bld) [Ratio] 0.0 /100 WBCs Normal 0.0-0.0 [facility] Comment on above: Performed By: #### 5 8410-2 #### TD PERALTA ([id number]) [facility] ([facility]) [address] [place] [address] Platelets (Bld) [#/Vol] 178 x10*3/uL Normal 150-450 [facility] Comment on above: Performed By: #### 5 8410-2 #### TD PERALTA ([id number]) [facility] ([facility]) [address] [place] [address] RBC (Bld) [#/Vol] 4.52 x10*6/uL Normal 4.50-5.90 [facility] Comment on above: Performed By: #### 5 8410-2 #### TD PERALTA ([id number]) [facility] ([facility]) [address] [place] [address] WBC (Bld) [#/Vol] 6.8 x10*3/uL Normal 4.4-11.3 [facility] Comment on above: Performed By: #### 5 8410-2 #### TD PERALTA ([id number]) [facility] ([facility]) [address] [place] [address] Coagulation tissue factor in ducedon 08-09-2023 PT Coag (PPP) [Time] 22.7 s High 9.8-12.8 [facility] Comment on above: Performed By: #### 5 902-2 #### TD PERALTA ([id number]) [facility] ([facility]) [address] [place] [address] PT Coag (PPP) [Time]on 11-21 -2023 INR Coag (PPP) [Relative time] 2.0 High 0.9-1.1 [facility] Comment on above: Performed By: #### 5 902-2 #### TD PERLATA ([id number]) [facility] ([facility]) [address] [place] [address] Prothrombin Time INRon 08-03 INR Coag (PPP) [Relative time] 2.2 {INR} [employer] Other Prothrombin Time INR [facility] [employer] Other ECG 12 Leadon 07-12-2023 ECG revealed atrial fibrillation and anteroseptal myocardial infarction of undetermined age [facility] Work Phone: Prothrombin Time INRon 07-06 INR Coag (PPP) [Relative time] 2.3 {INR} [employer] Other Prothrombin Time INR [facility] [employer] Other Coagulation tissue factor in ducedon 06-30-2023 PT Coag (PPP) [Time] 13.3 s High 9.8-12.8 [facility] Comment on above: Performed By: #### 5 902-2 #### TD PERALTA ([id number]) [facility] ([facility]) [address] [place] [address] Glucose Test strip manual (B ld) [Mass/Vol]on 06-30-2023 Glucose [Mass/Vol] 213 mg/dL High 74-99 [facility] Comment on above: Performed By: #### 2 341-6 #### TD PERALTA ([id number]) [facility]) [address] [place] [address] Glucose [Mass/Vol] 213 mg/dL High 74 - 99 mg/dL [facility] Interpretation and review of laboratory results Abnormal [facility] PT Coag (PPP) [Time]on 06-30 INR Coag (PPP) [Relative time] 1.2 High 0.9-1.1 [facility] Comment on above: Performed By: #### 5 902-2 #### TD KATHRYN ([id number]) [facility] ([facility]) [address] [place] [address] INR Coag (PPP) [Relative time] 1.2 {INR} High 0.9 - 1.1 [facility] Interpretation and review of laboratory results Abnormal [facility] Protime-INRon 06-30-2023 PT Coag (PPP) [Time] 13.3 s High [facility] XR CHEST 2 VIEWSon 3 XR CHEST 2 VIEWS Interpreted By: Dunia Leon, STUDY: XR CHEST 2 VIEWS; 06/30/2023 10:11 am INDICATION: Signs/Symptoms:s/p ICD insertion. COMPARISON: None. ACCESSION NUMBER(S): [id number] ORDERING CLINICIAN: LORENE VERNON FINDINGS: ICD is been inserted in the left upper chest wall with electrode wires projecting in the right atrium and right ventricle. CARDIOMEDIASTINAL SILHOUETTE: Cardiomediastinal silhouette is normal in size and configuration. LUNGS: Lungs are clear. No pneumothorax or pleural effusion is present. ABDOMEN: No remarkable upper abdominal findings. BONES: No acute osseous changes. Metallic fusion plate is present at the base of the cervical spine. IMPRESSION: 1. No pneumothorax is noted following ICD placement MACRO: None Signed by: Dunia Leon 06/30/2023 12:03 PM Dictation workstation: [id number] Normal [facility] Comment on above: Order Comment: Wet r ead. Discharge pending film. XR Chest 2 Viewson 3 1. No pneumothorax is noted following ICD placement MACRO: None Signed by: Dunia Leon 06/30/2023 12:03 PM Dictation workstation: [id number] MMODAL Interpreted By: Dunia Leon, STUDY: XR CHEST 2 VIEWS; 06/30/2023 10:11 am INDICATION: Signs/Symptoms:s/p ICD insertion. COMPARISON: None. ACCESSION NUMBER(S): [id number] ORDERING CLINICIAN: LORENE VERNON FINDINGS: ICD is been inserted in the left upper chest wall with electrode wires projecting in the right atrium and right ventricle. CARDIOMEDIASTINAL SILHOUETTE: Cardiomediastinal silhouette is normal in size and configuration. LUNGS: Lungs are clear. No pneumothorax or pleural effusion is present. ABDOMEN: No remarkable upper abdominal findings. BONES: No acute osseous changes. Metallic fusion plate is present at the base of the cervical spine. [facility] Dunia Leon MD - 06/30/2023 Interpreted By: Dunia Leon, STUDY: XR CHEST 2 VIEWS; 06/30/2023 10:11 am INDICATION: Signs/Symptoms:s/p ICD insertion. COMPARISON: None. ACCESSION NUMBER(S): [id number] ORDERING CLINICIAN: LORENE VERNON FINDINGS: ICD is been inserted in the left upper chest wall with electrode wires projecting in the right atrium and right ventricle. CARDIOMEDIASTINAL SILHOUETTE: Cardiomediastinal silhouette is normal in size and configuration. LUNGS: Lungs are clear. No pneumothorax or pleural effusion is present. ABDOMEN: No remarkable upper abdominal findings. BONES: No acute osseous changes. Metallic fusion plate is present at the base of the cervical spine. IMPRESSION: 1. No pneumothorax is noted following ICD placement MACRO: None Signed by: Dunia Leon 06/30/2023 12:03 PM Dictation workstation: [id number] [facility] Work Phone: Radiology Study observation (narrative) [facility] Work Phone: XR Chest 2 ViewsOrdered By: Dunia Leon on 06-30-2023 [facility] Work Phone: ECG 12-LEADon 06-29-2023 ECG 12-LEAD Ventricular Rate 83 Atrial Rate 79 QRS Duration 84 Q-T Interval 386 QTC Calculation(Bazett) 453 R Dewey 26 T Dewey 45 QRS Count 13 Q Onset 217 T Offset 410 QTC Fredericia 430 Diagnosis Atrial fibrillation Low voltage QRS Cannot rule out Anteroseptal infarct , age undetermined Abnormal ECG Confirmed by Brice Young ([id number]) on 07/04/2023 4:22:27 PM Normal [facility] ECG 12-LEAD Ventricular Rate 95 Atrial Rate 394 QRS Duration 84 Q-T Interval 362 QTC Calculation(Bazett) 454 R Dewey -8 T Dewey 5 QRS Count 16 Q Onset 216 T Offset 397 QTC Fredericia 421 Diagnosis Atrial fibrillation Low voltage QRS Cannot rule out Anteroseptal infarct , age undetermined Abnormal ECG Confirmed by Brice Young ([id number]) on 07/08/2023 5:25:44 PM Normal [facility] Glucose Test strip manual (B ld) [Mass/Vol]on 06-29-2023 Glucose [Mass/Vol] 205 mg/dL High 74-99 [facility] Comment on above: Performed By: #### 2 341-6 #### TD PERALTA ([id number]) [facility] ([facility]) [address] [place] [address] Glucose [Mass/Vol] 205 mg/dL High 74 - 99 mg/dL [facility] Interpretation and review of laboratory results Abnormal [facility] Glucose [Mass/Vol] 140 mg/dL High 74-99 [facility] Comment on above: Performed By: #### 2 341-6 #### TD PERALTA ([id number]) [facility] ([facility]) [address] [place] [address] Glucose [Mass/Vol] 140 mg/dL High 74 - 99 mg/dL [facility] Interpretation and review of laboratory results Abnormal [facility] PT and aPTT panel Coag (PPP) on 06-29-2023 aPTT Coag (PPP) [Time] 26 s Low 27-38 [facility] Comment on above: Order Comment: The A PTT is no longer used for monitoring Unfractionated Heparin Therapy. For monitoring Heparin Therapy, use the Heparin Assay. Performed By: #### 3 4529-8 #### TD PERALTA ([id number]) [facility] ([facility]) [address] [place], [place] [id number] INR Coag (PPP) [Relative time] 1.1 Normal 0.9-1.1 [facility] Comment on above: Order Comment: The A PTT is no longer used for monitoring Unfractionated Heparin Therapy. For monitoring Heparin Therapy, use the Heparin Assay. Performed By: #### 3 4529-8 #### TD PERALTA ([id number]) [facility] (PMC) [address] [place] [address] PT Coag (PPP) [Time] 12.6 s Normal 9.8-12.8 [facility] Comment on above: Order Comment: The A PTT is no longer used for monitoring Unfractionated Heparin Therapy. For monitoring Heparin Therapy, use the Heparin Assay. Performed By: #### 3 4529-8 #### TD PERALTA ([id number]) [facility] ([facility]) [address] [place] [address] aPTT Coag (PPP) [Time] 26 s [facility] INR Coag (PPP) [Relative time] 1.1 {INR} 0.9 - 1.1 [facility] Interpretation and review of laboratory results Abnormal [facility] PT Coag (PPP) [Time] 12.6 s [facility] The APTT is no longer used for monitoring Unfractionated Heparin Therapy. For monitoring Heparin Therapy, use the Heparin Assay. [facility] BASIC METABOLIC PANELon - Anion gap [Moles/Vol] 11 mmol/L Normal 10 - 20 [facility] Comment on above: Performed By: #### B MP #### [address] [id number] Calcium [Mass/Vol] 9.1 mg/dL Normal 8.6 - 10.3 [facility] Comment on above: Performed By: #### B MP #### [address] [id number] Chloride [Moles/Vol] 102 mmol/L Normal 98 - 107 [facility] [place] Comment on above: Performed By: #### B MP #### [address] [id number] Creatinine [Mass/Vol] 1.03 mg/dL Normal 0.50 - 1.30 [facility] Comment on above: Performed By: #### B MP #### [address] [id number] GFR/1.73 sq M.predicted among non-blacks MDRD (S/P/Bld) [Vol rate/Area] 83 mL/min/{1.73_m2} Normal >90 [facility] Comment on above: Result Comment: CALC ULATIONS OF ESTIMATED GFR ARE PERFORMED USING THE 2020 CKD-EPI STUDY REFIT EQUATION WITHOUT THE RACE VARIABLE FOR THE IDMS-TRACEABLE CREATININE METHODS. https://jasn.asnjournals.org/content/early//ASN.7342828 988 Performed By: #### B MP #### [address] [id number] Glucose [Mass/Vol] 97 mg/dL Normal 74 - 99 [facility] Comment on above: Performed By: #### B MP #### [address] [id number] HCO3 (Bld) [Moles/Vol] 32 mmol/L Normal 21 - 32 [facility] Comment on above: Performed By: #### B MP #### [address] [id number] Potassium [Moles/Vol] 3.8 mmol/L Normal 3.5 - 5.3 [facility] Comment on above: Performed By: #### B MP #### [address] [id number] Sodium [Moles/Vol] 141 mmol/L Normal 136 - 145 [facility] Comment on above: Performed By: #### B MP #### [address] [id number] Urea nitrogen [Mass/Vol] 16 mg/dL Normal 6 - 23 [facility] Comment on above: Performed By: #### B MP #### [address] [id number] CBCon 06-07-2023 Erythrocyte distribution width (RBC) [Ratio] 13.9 % Normal 11.5 - 14.5 [facility] Comment on above: Performed By: #### C BC #### [address] [id number] Hematocrit (Bld) [Volume fraction] 44.5 % Normal 41.0 - 52.0 [facility] Comment on above: Performed By: #### C BC #### [address] [id number] Hemoglobin (Bld) [Mass/Vol] 15.1 g/dL Normal 13.5 - 17.5 [facility] Comment on above: Performed By: #### C BC #### [address] [id number] MCHC (RBC) [Mass/Vol] 33.9 g/dL Normal 32.0 - 36.0 [facility] Comment on above: Performed By: #### C BC #### [address] [id number] MCV (RBC) [Entitic vol] 95 fL Normal 80 - 100 [facility] Comment on above: Performed By: #### C BC #### [address] [id number] Platelets (Bld) [#/Vol] 184 10*3/uL Normal 150 - 450 [facility] Comment on above: Performed By: #### C BC #### [address] [id number] RBC 4.68 x10E12/L Normal 4.50 - 5.90 [facility] [place] Comment on above: Performed By: #### C BC #### [address] [id number] WBC (Bld) [#/Vol] 8.1 10*3/uL Normal 4.4 - 11.3 [facility] Comment on above: Performed By: #### C BC #### [address] [id number] PT/INRon 06-07-2023 PT Coag (PPP) [Time] 33.5 s High 9.8 - 12.8 [facility] [place] Comment on above: Result Comment: Note new reference range as of 03/08/2023 at 10:00am. Performed By: #### P TINR #### [address] [id number] PT, INR 2.9 High 0.9 - 1.1 [facility] Comment on above: Performed By: #### P TINR #### [facility] [address] [place], [place] [id number] Prothrombin Time INRon 06-06 INR Coag (PPP) [Relative time] 2.3 {INR} [employer] Other Prothrombin Time INR [employer] Other Prothrombin Time INRon 05-25 INR Coag (PPP) [Relative time] 2.4 {INR} [employer] Other Prothrombin Time INR [employer] Other Office Visit (Cardiology)on 05-24-2023 Follow-up visit Diagnoses/Problems Assessed Ventricular tachycardia, nonsustained (427.1) (I47.29) Paroxysmal atrial fibrillation (427.31) (I48.0) Hyperlipidemia (272.4) (E78.5) Diabetes mellitus (250.00) (E11.9) Essential hypertension (401.9) (I10) Ischemic cardiomyopathy (414.8) (I25.5) Pulmonary embolus (415.19) (I26.99) 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 (414.01) (I25.10) Class 2 obesity with body mass index (BMI) of 37.0 to 37.9 in adult (278.00,V85.37) (E66.9,Z68.37) Orders Class 2 obesity with body mass index (BMI) of 37.0 to 37.9 in adult Basic Metabolic Panel; Status:Active; Requested for:[id number]; Complete Blood Count; Status:Active; Requested for:[id number]; IO EKG Electrocardiogram- 12 Lead; Status:Complete; Done: [id number] PT/INR; Status:Active; Requested for:[id number]; Chief Complaint HARRIETT THAKKAR is being seen for a consultation for atrial fibrillation and ICD eval. Active Problems Problems Abnormal EKG (794.31) (R94.31) Anticoagulated (V58.61) (Z79.01) Chest pain (786.50) (R07.9) Class 2 obesity with body mass index (BMI) of 37.0 to 37.9 in adult (278.00,V85.37) (E66.9,Z68.37) 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 (414.01) (I25.10) Diabetes mellitus (250.00) (E11.9) Essential hypertension (401.9) (I10) High risk medication use (V58.69) (Z79.899) History of GA (myocardial infarction) (412) (I25.2) History of PTCA (V45.82) (Z98.61) Hyperlipidemia (272.4) (E78.5) Ischemic cardiomyopathy (414.8) (I25.5) Never a smoker Orthostatic hypotension (458.0) (I95.1) Paroxysmal atrial fibrillation (427.31) (I48.0) Pulmonary embolus (415.19) (I26.99) Sleep apnea (780.57) (G47.30) Syncope, near (780.2) (R55) Ventricular tachycardia, nonsustained (427.1) (I47.29) Surgical History Problems History of Cardiac catheterization with stent placement History of Colonoscopy [id number] History of Neck surgery disectomy History of Toe amputation Past Medical History Problems History of dizziness (V13.89) (Z87.898) Resolved Date: 16 Dec 2021 History of dyspnea (V12.69) (Z87.898) Resolved Date: 16 Dec 2021 Current Meds Medication NameInstruction Atorvastatin Calcium 80 MG Oral Tablettake 1 tablet by mouth every evening Clopidogrel Bisulfate 75 MG Oral TabletTake 1 tablet daily Dofetilide 250 MCG Oral CapsuleTAKE 1 CAPSULE TWICE DAILY. Insulin Aspart 100 UNIT/ML SOLN metFORMIN HCl - 850 MG Oral TabletTAKE 1 TABLET BY MOUTH TWICE DAILY Metoprolol Succinate ER 25 MG Oral Tablet Extended Release 24 HourTake 1 tablet twice daily Midodrine HCl - 10 MG Oral TabletTAKE 1 TABLET 3 TIMES DAILY. Nitroglycerin 0.4 MG Sublingual Tablet SublingualPLACE 1 TABLET UNDER THE TONGUE EVERY 5 MINUTES FOR UP TO 3 DOSES NEEDED FOR CHEST PAIN.CALL 911 IF PAIN PERSISTS. Ozempic (1 MG/DOSE) 4 MG/3ML Subcutaneous Solution Pen-injector Potassium Chloride ER 20 MEQ Oral Tablet Extended Release1 TAB DAILY Semglee (yfgn) 100 UNIT/ML Subcutaneous Solution Warfarin Sodium 5 MG Oral TabletTake as directed by [facility] Allergies Medication PAULETTE Inhibitors Hypotension;; Recorded By: Angella Gutiérrez; 07/25/2021 11:53:27 AM Penicillins Recorded By: Angella Gutiérrez; 07/25/2021 11:53:27 AM sulfa Recorded By: Angella Gutiérrez; 07/25/2021 11:53:27 AM Family History Mother Family history of diabetes mellitus (V18.0) (Z83.3) Father Family history of diabetes mellitus (V18.0) (Z83.3) Family history of S/P CABG (coronary artery bypass graft) Social History Problems Never a smoker No alcohol use No illicit drug use Occasional caffeine consumption Vitals Vital Signs Recorded: 24May2023 02:10PMRecorded: 07Mpg7323 02:04PM Heart Nhqr079 Rnyevaxz489, LUE, Sitting Dafuhtasg43, LUE, Sitting Height6 ft 3 in Yqdhno089 lb BMI Furbfezcnb50.62 kg/m2 BSA Calculated2.64 O2 Hbkhebjmjg91 Physical Exam Constitutional: Well developed, awake/alert/oriented x3, no distress Head/Neck: Neck supple, No JVD, no bruits Respiratory: Patent airways, CTAB, normal breath sounds with good chest expansion Cardiovascular: Regular, rate and rhythm, no murmurs, normal S1 and S2 Extremities: normal extremities, no cyanosis edema Neurological: alert and oriented x3 Scores and Scales [id number] 1. Heart Failure or EF less than or equal to 35%? Yes (1 pt) 2. Hypertension? Yes (1 pt) 3. Age? Less than 65 (0 pt) 4. Diabetes? Yes (1 pt) 5. Stroke, TIA, or Systemic Emboli? No (0 pt) 6. Vascular Disease? Yes (1 pt) 7. Gender? Male (0 pt) Total Risk Score: The [id number] Score is 4 which corresponds to High Risk. Impressions 58-year-old man with history of sleep apnea (intolerant of CPAP), morbid obesity, HTN, diabetes, hyperlipidemia, CAD s/p PCI x2 (LAD 2020 repeat PCI later in 2019 ISR), h/o PE (>5 years ago), paroxysmal atrial fibrillation b (more content not included)... Normal [facility] [employer] Prothrombin Time INRon 05-12 INR Coag (PPP) [Relative time] 3.6 {INR} [facility] [employer] Other Prothrombin Time INR Nort [facility] [employer] Other [facility] CARDIAC STRESS/REST INJE CTIONon 05-02-2023 [facility] CARDIAC STRESS/REST INJECTION Patient Name: HARRIETT THAKKAR STUDY: MYOCARDIAL PERFUSION STRESS TEST WITH LEXISCAN Performing facility: [facility], [address] [place] [address], [address], [address] Provider: Angel Griggs MD, [facility] PCP: Dr. Molly Garcia Supervising provider: Dallas Em MD INDICATION: Chest Pain; CAD; Diabetes HTN Hyperlipidemia Ischemic cardiomyopathy HISTORY: Gender: M; Age: 58 y/o ; Height: 187.96 cm; Weight: 554.1566170 kg. CAD; High Cholesterol; Diabetes; Previous GA; HTN; Arrhythmias; Chest Pain; Denies smoking. Cardiac catheterization on 2019. PTCA on 2019. COMPARISON: Previous nuclear testing completed at [facility]. ACCESSION NUMBER(S): [id number]; [id number]; [id number] ORDERING CLINICIAN: ANGEL GRIGGS TECHNIQUE: TWO DAY protocol. Stress injection: Date:05-02-23, 34.2 mCi of Myoview IV 20 seconds after rapid injection of Lexiscan. Rest injection: Date: 05-09-23, 32.3 mCi of Myoview IV at rest. The patient had a rapid injection of 0.4 mg of Lexiscan IV over 10 seconds. Imaging was performed by gated tomographic technique. Reason for Lexiscan: Dizziness STRESS TEST DATA: Resting heart rate was 85 BPM. Resting blood pressure was 112/72 mmHg. Peak blood pressure was 98/62 mmHg. Peak heart rate was 96 BPM. TEST TERMINATED DUE TO: Protocol completed FINDINGS: STRESS TEST RESULTS: Resting electrocardiogram revealed normal sinus rhythm with anteroseptal myocardial infarction of undetermined age and prolonged QT interval. There were no significant ischemic ECG changes or dysrhythmias. The patient did not have chest pains/symptoms during procedure. There was a normal recovery phase. IMAGING RESULTS: Image quality was good. Rest and stress tomographic images were reviewed and revealed abnormal perfusion. There was no evidence of perfusion abnormality consistent with ischemia. There was evidence of a large fixed anteroseptal and apical perfusion abnormality consistent with infarction. There was no left ventricular dilatation with stress. Overall left ventricular systolic function appeared to be abnormal. There was large area of anteroseptal and apical hypokinesis. LVEF was 36%. TID is 1.01 and is normal. There was no evidence of attenuation artifact. IMPRESSION: Abnormal Lexiscan Myoview cardiac perfusion stress test. No myocardial ischemia by perfusion imaging. Large anteroseptal and apical myocardial infarction by perfusion imaging. Abnormal left ventricular systolic function. Left ventricular ejection fraction 36 %. When compared to a study from 2020, no interval changes are seen. Electronically signed by: ANGEL GRIGGS MD Normal [facility] Prothrombin Time INRon 05-02 INR Coag (PPP) [Relative time] 3.7 {INR} [facility] [employer] Other Prothrombin Time INR Normal [facility] [employer] Other A1C with Estimated Average G [facility] 04-04-2023 Glucose [Mass/Vol] 169 mg/dL Normal [facility] Comment on above: Order Comment: Comme nt add on please Result Comment: PERF ORMED BY: [place] [address] PATHOLOGIST DIESEL DRAGLINE OPERATOR MELANI GUTIÉRREZ M.D. Performed By: #### A 1C [facility] #### [address] HbA1c (Bld) [Mass fraction] 7.5 % High 4.3-5.6 [facility] Comment on above: Order Comment: Comme nt add on please Result Comment: Incr eased risk for diabetes: 5.7 - 6.4 diabetes: >6.4 glycemic control for adults with diabetes: <7.0 Performed By: #### A 1C [facility] #### [facility] [address] Alanine aminotransferase [En zymatic activity/volume] in Serum or PlasmaOrdered By: Toy Yeager on 04-04-2023 ALT [Catalytic activity/Vol] 26 U/L 7-52 [facility] Albumin [Mass/volume] in Ser um or Plasma by Bromocresol green (BCG) dye binding methoOrdered By: Toy Yeager on 04-04-2023 Albumin BCG dye [Mass/Vol] 3.7 g/dL 3.5-5.7 [facility] Alkaline phosphatase [Enzyma tic activity/volume] in Serum or PlasmaOrdered By: Toy Yeager on 04-04-2023 ALP [Catalytic activity/Vol] 72 U/L 34-104 [facility] Aspartate aminotransferase [ Enzymatic activity/volume] in Serum or PlasmaOrdered By: Toy Yeager on 04-04-2023 AST [Catalytic activity/Vol] 21 U/L 13-39 [facility] Basophils Auto (Bld) [#/Vol] Ordered By: Toy Yeager on 04-04-2023 Basophils (Bld) [#/Vol] 0.0 10*3/uL 0.0-0.2 [facility] Basophils/100 WBC Auto (Bld) Ordered By: Toy Toy on 04-04-2023 Basophils/100 WBC (Bld) 0.7 % . [facility] Bilirubin.total [Mass/volume ] in Serum or PlasmaOrdered By: Toy Yeager on 04-04-2023 Bilirubin [Mass/Vol] 0.7 mg/dL 0.3-1.[address] [facility] Calcium [Mass/volume] in Ser um or PlasmaOrdered By: Toy Yeager on 04-04-2023 Calcium [Mass/Vol] 7.8 mg/dL 8.6-10.3 [facility] Carbon dioxide, total [Moles /volume] in Serum or PlasmaOrdered By: Toy Yeager on 04-04-2023 CO2 [Moles/Vol] 31.7 mmol/L 21.0-31.0 [facility] Chloride [Moles/volume] in S suad or PlasmaOrdered By: Toy Yeager on 04-04-2023 Chloride [Moles/Vol] 102 mmol/L 98-[address] [facility] Complete Blood Count Auto Di ffon 04-04-2023 Basophils (Bld) [#/Vol] 0.0 10*3/uL Normal 0.0-0.2 [facility] Comment on above: Result Comment: PERF ORMED BY: [place] [address] PATHOLOGIST DIESEL DRAGLINE OPERATOR MELANI GUTIÉRREZ M.D. Performed By: #### C BC, PT #### [address] Basophils/100 WBC (Bld) 0.7 % Normal . [facility] Comment on above: Performed By: #### C BC, PT #### [address] Eosinophils (Bld) [#/Vol] 0.2 10*3/uL Normal 0.0-0.45 [facility] Comment on above: Performed By: #### C BC, PT #### [address] Eosinophils/100 WBC (Bld) 3.1 % Normal . [facility] Comment on above: Performed By: #### C BC, PT #### [address] Erythrocyte distribution width (RBC) [Ratio] 14.2 % Normal 12.0-14.8 [facility] Comment on above: Performed By: #### C BC, PT #### [address] Hematocrit (Bld) [Volume fraction] 41.1 % Normal 38.8-50.0 [facility] Comment on above: Performed By: #### C BC, PT #### [address] Hemoglobin (Bld) [Mass/Vol] 14.4 g/dL Normal 13.0-17.0 [facility] Comment on above: Performed By: #### C BC, PT #### [address] Lymphocytes (Bld) [#/Vol] 1.3 10*3/uL Normal 1.00-4.8 [facility] Comment on above: Performed By: #### C BC, PT #### [address] Lymphocytes/100 WBC (Bld) 20.2 % Normal . [facility] Comment on above: Performed By: #### C BC, PT #### [address] MCH (RBC) [Entitic mass] 31.8 pg Normal 27.5-35.2 [facility] Comment on above: Performed By: #### C BC, PT #### [address] MCV (RBC) [Entitic vol] 90.9 fL Normal 83.5-101 [facility] Comment on above: Performed By: #### C BC, PT #### [address] Mean Corpuscular HGB Conc 35.0 g/dL Normal 32.5-35.6 [facility] Comment on above: Performed By: #### C BC, PT #### [address] Monocytes (Bld) [#/Vol] 0.6 10*3/uL Normal 0.0-0.8 [facility] Comment on above: Performed By: #### C BC, PT #### [address] Monocytes/100 WBC (Bld) 9.8 % Normal . [facility] Comment on above: Performed By: #### C BC, PT #### [address] Neutrophils (Bld) [#/Vol] 4.1 10*3/uL Normal 1.8-7.7 [facility] Comment on above: Performed By: #### C BC, PT #### [facility] [address] Neutrophils/100 WBC (Bld) 66.2 % Normal . [facility] Comment on above: Performed By: #### C BC, PT #### [facility] [address] NRBC% 0.1 /100{WBC} Normal 0-0.5 [facility] Comment on above: Performed By: #### C BC, PT #### [facility] [address] Platelet mean volume (Bld) [Entitic vol] 9.5 fL Normal 6.6-10.1 [facility] Comment on above: Performed By: #### C BC, PT #### [facility] [address] Platelets (Bld) [#/Vol] 129 10*3/uL Low 150-450 [facility] Comment on above: Performed By: #### C BC, PT #### [address] RBC (Bld) [#/Vol] 4.52 10*6/uL Normal 3.90-5.60 [facility] Comment on above: Performed By: #### C BC, PT #### [facility] [address] WBC (Bld) [#/Vol] 6.2 10*3/uL Normal 4.1-10.5 [facility] Comment on above: Performed By: #### C BC, PT #### [address] Comprehensive Metabolic Pane lindy 04-04-2023 Albumin [Mass/Vol] 3.7 g/dL Normal 3.5-5.7 [facility] Comment on above: Performed By: #### C K, HS TROP #### [address] [address] [place] Albumin/Globulin [Mass ratio] 1.6 {ratio} Normal [facility] Comment on above: Performed By: #### C K, HS TROP #### [address] ALP [Catalytic activity/Vol] 72 U/L Normal 34-104 [facility] Comment on above: Performed By: #### C K, HS TROP #### [facility] [address] [place] [address] ALT [Catalytic activity/Vol] 26 U/L Normal 7-52 [facility] Comment on above: Performed By: #### C K, HS TROP #### [facility] [address] [place] [address] Anion gap [Moles/Vol] 8.9 mmol/L Normal 6.0-15.0 [facility] Comment on above: Performed By: #### C K, HS TROP #### [address] AST [Catalytic activity/Vol] 21 U/L Normal 13-39 [facility] Comment on above: Performed By: #### C K, HS TROP #### [facility] [address] [place] [address] Bilirubin [Mass/Vol] 0.7 mg/dL Normal 0.3-1.[address] [facility] Comment on above: Performed By: #### C K, HS TROP #### [facility] [address] [place] [address] Calcium [Mass/Vol] 7.8 mg/dL Low 8.6-10.3 [facility] Comment on above: Performed By: #### C K, HS TROP #### [facility] [address] [place] [address] [place] Chloride [Moles/Vol] 102 mmol/L Normal 98-[address] [facility] Comment on above: Performed By: #### C K, HS TROP #### [facility] [address] [place] [address] CO2 [Moles/Vol] 31.7 mmol/L High 21.0-31.0 [facility] Comment on above: Performed By: #### C K, HS TROP #### [facility] [address] Creatinine [Mass/Vol] 1.05 mg/dL Normal 0.70-1.30 [facility] Comment on above: Performed By: #### C K, HS TROP #### [facility] [address] [place] [address] [place] Creatinine Clr Calc Pharmacy 107.85 [facility] Comment on above: Result Comment: PERF ORMED BY: [place] [address] PATHOLOGIST DIESEL DRAGLINE OPERATOR MELANI GUTIÉRREZ M.D. Performed By: #### C K, HS TROP #### [place] [address] [place] GFR/1.73 sq M.predicted MDRD (S/P/Bld) [Vol rate/Area] mL/min/{1.73_m2} [facility] Comment on above: Performed By: #### C K, HS TROP #### [facility] [address] Globulin (S) [Mass/Vol] 2.3 g/dL [facility] Comment on above: Performed By: #### C K, HS TROP #### [address] Glucose [Mass/Vol] 161 mg/dL High 70-100 [facility] Comment on above: Result Comment: [place] Glucose Reference Range is dependent on time and content of last meal. Glucose of more than 200 mg/dL in a nonstressed, ambulatory subject supports the diagnosis of Diabetes Mellitus. ADA recommended reference range Performed By: #### C K, HS TROP #### [facility] [address] Potassium [Moles/Vol] 3.6 mmol/L Normal 3.5-5.1 [facility] Comment on above: Performed By: #### C K, HS TROP #### [facility] [address] Protein [Mass/Vol] 6.0 g/dL Low 6.4-8.9 [facility] Comment on above: Performed By: #### C K, HS TROP #### [facility] [address] Sodium [Moles/Vol] 139 mmol/L Normal 136-145 [facility] Comment on above: Performed By: #### C K, HS TROP #### [facility] [address] Urea nitrogen [Mass/Vol] 23 mg/dL Normal 7-25 [facility] Comment on above: Performed By: #### C K, HS TROP #### [facility] [address] Creatinine [Mass/volume] in Serum or PlasmaOrdered By: Toy Yeager on 04-04-2023 Creatinine [Mass/Vol] 1.05 mg/dL 0.70-1.30 [facility] ECH echo transthoracicon REPLACED BY [facility] echo transthoracic [facility] Main [place] [address] [place] [address] Echocardiogram Signed Patient: Harriett Thakkar MR#: [id number] 285 : 1965 Acct:[id number] Age/Sex: 58 / M ADM Date: 04/02/23 Loc: Room: [address] [place] [address] Type: ADM INOo Attending Dr: Derrek Tay DO Ordering Provider: Toy Yeager MD Date of Service: 04/03/23 REPLACED BY [facility]/REPLACED BY [facility] echo transthoracic: Chest pain r/o Hypokinesis Copies to: Angel Griggs MD, [facility] Toy Yeager MD Weight: 290 lb Performed By: MOHINI Wong BSA: 2.5 m2 BP: 105/70 mmHg HR: 87 Reason For Study: Chest pain r/o Hypokinesis History: CAD, DM, HLD, Afib, stent Interpretation Summary Mild concentric left ventricular hypertrophy. There are regional wall motion abnormalities as specified. The septum is hyperechoic with severe hypokinesis consistent with infarction and scarring There is moderate to severe anterior wall hypokinesis. The LV ejection fraction is 45 %. The left atrium appears mildly dilated. Compared to prior echo report on 11/09/2019, changes are noted. Atrial fibrillation with RVR is no longer seen Procedure/Quality: A two-dimensional transthoracic echocardiogram with color flow, Doppler and injection of contrast agent Definity was performed. The study was technically good in quality. Compared to prior echo report on 11/09/2019, changes are noted. Atrial fibrillation with RVR is no longer seen. Left Ventricle: Mild concentric left ventricular hypertrophy. The LV ejection fraction is 45 %. There are regional wall motion abnormalities as specified. The septum is hyperechoic with severe hypokinesis consistent with infarction and scarring. There is moderate to severe anterior wall hypokinesis. Left Atrium: The left atrium appears mildly dilated. The atrial septum appears normal. Right Atrium: The right atrium appears normal in size. Right Ventricle: The right ventricular size, thickness and function are normal. Aortic Valve: The aortic valve is trileaflet. Mitral Valve: The mitral valve is mildly sclerotic. Tricuspid Valve: The tricuspid valve is normal. Pulmonic Valve: The pulmonic valve is not well seen, but is grossly normal. Arteries: The aortic root is normal size. Pericardium/Pleura: No pericardial effusion seen. There is no pleural effusion. IVC/Hepatic Viens: The IVC is normal in size with an inspiratory collapse of greater then 50%, suggesting normal right atrial pressure. Miscellaneous: No thrombus, vegetation or mass is seen. Measurements with Normals IVSd: 1.3 cm (0.7-1.1 cm)LVIDd: 4.6 cm (3.7-5.4 cm) LVPWd: 1.7 cm (0.7-1.1 cm)LVIDs: 3.8 cm (2.3-3.6 cm) LA dimension: 4.5 cm (2.3-4.0 cm)Ao root diam: 3.4 cm(2.0-3.6 cm) asc Aorta Diam: 2.8 cm(2.1-3.4cm) Doppler with Normals RVSP(TR): 31.0 mmHg (18-35mmHg) MV E max millicent: 63.5 cm/sec(0.8-1.3m/s) MV A max millicent: 41.2 cm/sec(0.0-0.0m/s) MV E/A: 1.5 (<1.5) MMode/2D Measurements Calculations RVDd: 3.6 cm FS: 17.6 % Ao root area: LVOT diam: TAPSE: 2.2 cm EDV(Teich): 98.0 ml 9.0 cm2 1.9 cm RV S Millicent: ESV(Teich): 62.0 ml LVOT area: 10.8 cm/sec EF(Teich): 36.8 % 2.8 cm2 __ LAV(MOD-sp4): 26.2 ml LA A4 area: 12.7 cm2 LA length (vol): 4.8 cm Doppler Measurements Calculations MV dec time: 0.07 sec E/E' lat: MV dec slope: TV max P.5 925.4 cm/sec2 26.0 mmHg E/E' med: 8.7 __ TR max millicent: 255.2 cm/sec TR max P.0 mmHg RAP systole: 5.0 mmHg Transcribed By: SCV Performed At: 04/04/23 1318 Signed By: Angel Griggs MD, [facility] 04/04/23 1265 Normal [facility] Eosinophils Auto (Bld) [#/Vo l]Ordered By: Toy Yeager on 04-04-2023 Eosinophils (Bld) [#/Vol] 0.2 10*3/uL 0.0-0.45 [facility] Eosinophils/100 WBC Auto (Bl d)Ordered By: Toy Yeager on 04-04-2023 Eosinophils/100 WBC (Bld) 3.1 % . [facility] Erythrocyte distribution wid th Auto (RBC) [Ratio]Ordered By: Toy Yeager on 04-04-2023 Erythrocyte distribution width (RBC) [Ratio] 14.2 % 12.0-14.8 [facility] Globulin Calc (S) [Mass/Vol] Ordered By: Toy Yeager on 04-04-2023 Globulin (S) [Mass/Vol] 2.3 g/dL [facility] Glucose Glucometer (BldC) [M ass/Vol]Ordered By: Toy Yeager on 04-04-2023 Glucose [Mass/Vol] 146 mg/dL [facility] Comment on above: Random Glucose Refer ence Range is dependent on time and content of last meal. Glucose of more than 200 mg/dL in a nonstressed, ambulatory subject supports the diagnosis of Diabetes Mellitus. Glucose Poct Glucometerson 0 04-04-2023 Glucose [Mass/Vol] 146 mg/dL Normal [facility] Comment on above: Result Comment: [place] om Glucose Reference Range is dependent on time and content of last meal. Glucose of more than 200 mg/dL in a nonstressed, ambulatory subject supports the diagnosis of Diabetes Mellitus. PERFORMED BY: [facility] [address] [place] [address] PATHOLOGIST DIESEL DRAGLINE OPERATOR MELANI GUTIÉRREZ M.D. Performed By: #### G ARACELIS #### Point of Care testing , Glucose [Mass/volume] in Ser um or PlasmaOrdered By: Toy Yeager on 04-04-2023 Glucose [Mass/Vol] 161 mg/dL 70-100 [facility] Comment on above: ADA recommended refe rence rangeRandom Glucose Reference Range is dependent on time and content of last meal. Glucose of more than 200 mg/dL in a nonstressed, ambulatory subject supports the diagnosis of Diabetes Mellitus. Glucose mean value [Mass/vol ume] in Blood Estimated from glycated hemoglobinOrdered By: Derrek Tay on 04-04-2023 Average glucose Estimated from glycated hemoglobin (Bld) [Mass/Vol] 169 mg/dL [facility] Hematocrit Auto (Bld) [Volum e fraction]Ordered By: Toy Yeager on 04-04-2023 Hematocrit (Bld) [Volume fraction] 41.1 % 38.8-50.0 [facility] Hemoglobin A1c percentageOrd ered By: Derrek Tay on 04-04-2023 HbA1c (Bld) [Mass fraction] 7.5 % 4.3-5.6 [facility] Comment on above: Increased risk for d iabetes: 5.7 - 6.4diabetes: >6.4glycemic control for adults with diabetes: <7.0 Hemoglobin [Mass/volume] in BloodOrdered By: Toy Yeager on 04-04-2023 Hemoglobin (Bld) [Mass/Vol] 14.4 g/dL 13.0-17.0 [facility] Laboratory - CoagulationOrde red By: Toy Yeager on 04-04-2023 PT Coag (PPP) [Time] 39.6 s 9.0-12.[address] [facility] Leukocytes [#/volume] correc kaylee for nucleated erythrocytes in Blood by Automated counOrdered By: Toy Yeager on 04-04-2023 WBC corrected for nucl RBC Auto (Bld) [#/Vol] 6.2 10*3/uL 4.1-10.5 [facility] Lymphocytes Auto (Bld) [#/Vo l]Ordered By: Toy Yeager on 04-04-2023 Lymphocytes (Bld) [#/Vol] 1.3 10*3/uL 1.00-4.8 [facility] Lymphocytes/100 WBC Auto (Bl d)Ordered By: Toy Yeager on 04-04-2023 Lymphocytes/100 WBC (Bld) 20.2 % . [facility] MCH Auto (RBC) [Entitic mass ]Ordered By: Toy Yeager on 04-04-2023 MCH (RBC) [Entitic mass] 31.8 pg 27.5-35.2 [facility] MCHC Auto (RBC) [Mass/Vol]Or dered By: Toy Yeager on 04-04-2023 MCHC (RBC) [Mass/Vol] 35.0 g/dL 32.5-35.6 [facility] MCV Auto (RBC) [Entitic vol] Ordered By: Toy Yeager on 04-04-2023 MCV (RBC) [Entitic vol] 90.9 fL 83.5-101 [facility] Monocytes Auto (Bld) [#/Vol] Ordered By: Toy Yeager on 04-04-2023 Monocytes (Bld) [#/Vol] 0.6 10*3/uL 0.0-0.8 [facility] Monocytes/100 WBC Auto (Bld) Ordered By: Toy Yeager on 04-04-2023 Monocytes/100 WBC (Bld) 9.8 % . [facility] Neutrophils Auto (Bld) [#/Vo l]Ordered By: Toy Yeager on 04-04-2023 Neutrophils (Bld) [#/Vol] 4.1 10*3/uL 1.8-7.7 [facility] Neutrophils/100 WBC Auto (Bl d)Ordered By: Toy Yeager on 04-04-2023 Neutrophils/100 WBC (Bld) 66.2 % . [facility] No Panel InformationOrdered By: Toy Yeager on 04-04-2023 Estimated GFR (CKD-EPI) > 60.0 mL/Min [facility] Creatinine Clearance (Chem 107.85 [facility] Nucleated erythrocytes [Pres ence] in Blood by Automated countOrdered By: Toy Yeager on 04-04-2023 Nucleated RBC Auto Ql (Bld) 0.1 /100{WBC} 0-0.5 [facility] Platelet mean volume Auto (B ld) [Entitic vol]Ordered By: Toy Yeager on 04-04-2023 Platelet mean volume (Bld) [Entitic vol] 9.5 fL 6.6-10.1 [facility] Platelet poor plasma interna tional normalized ratio (INR) by coagulation assay (relatOrdered By: Toy Yeager on 04-04-2023 INR Coag (PPP) [Relative time] 3.5 {INR} [facility] Comment on above: INR Therapeutic Rang e A) Pre- and Peroperative OAT started two weeks before surgery. NOT HIP SURGERY: 1.5 - 2.5 HIP SURGERY: 2 - 3B) Primary and secondary prevention of venous THROMBOSIS: 2 - 3C) Active venous thrombosis, pulmonary embolismand prevention of recurrent venous thrombosis: 2 - 3D) Prevention of arterial thromboembolismincluding patients with mechanical heart valves: 3 - 4.5 Platelets Auto (Bld) [#/Vol] Ordered By: Toy Yeager on 04-04-2023 Platelets (Bld) [#/Vol] 129 10*3/uL 150-450 [facility] Potassium [Moles/volume] in Serum or PlasmaOrdered By: Toy Yeager on 04-04-2023 Potassium [Moles/Vol] 3.6 mmol/L 3.5-5.1 [facility] Protein [Mass/volume] in Ser um or PlasmaOrdered By: Toy Yeager on 04-04-2023 Protein [Mass/Vol] 6.0 g/dL 6.4-8.9 [facility] Prothrombin Time INRon 04-04 INR Coag (PPP) [Relative time] 3.5 {INR} Normal [facility] Comment on above: Result Comment: INR Therapeutic Range A) Pre- and Peroperative OAT started two weeks before surgery. NOT HIP SURGERY: 1.5 - 2.5 HIP SURGERY: 2 - 3 B) Primary and secondary prevention of venous THROMBOSIS: 2 - 3 C) Active venous thrombosis, pulmonary embolism and prevention of recurrent venous thrombosis: 2 - 3 D) Prevention of arterial thromboembolism including patients with mechanical heart valves: 3 - 4.5 PERFORMED BY: [place] [address] PATHOLOGIST DIESEL DRAGLINE OPERATOR MELANI GUTIÉRREZ M.D. Performed By: #### C BC, PT #### [facility] [address] [place] [address] PT Coag (PPP) [Time] 39.6 s High 9.0-12.[address] [facility] Comment on above: Performed By: #### C BC, PT #### [facility] [address] [place] [address] RBC Auto (Bld) [#/Vol]Ordere d By: Toy Yeager on 04-04-2023 RBC (Bld) [#/Vol] 4.52 10*6/uL 3.90-5.60 [facility] Serum or plasma albumin/glob ulin mass ratioOrdered By: Toy Yeager on 04-04-2023 Albumin/Globulin [Mass ratio] 1.6 {ratio} [facility] Serum or plasma anion gap de terminationOrdered By: Toy Yeager on 04-04-2023 Anion gap [Moles/Vol] 8.9 mmol/L 6.0-15.0 [facility] Sodium [Moles/volume] in Ser um or PlasmaOrdered By: Toy Yeager on 04-04-2023 Sodium [Moles/Vol] 139 mmol/L 136-145 [facility] US carotid doppler BIon 03-19 US carotid doppler BI [facility] [place] [address] Ultrasound Report Signed Patient: Harriett Thakkar MR#: [id number] 285 : 1965 Acct:[id number] Age/Sex: 58 / M ADM Date: 04/02/23 Loc: Room: [address] [place] [address] Type: ADM INOo Attending Dr: Derrek Tay DO Ordering Provider: Dallas Em MD Date of Service: 04/03/23 US/US carotid doppler BI: [email or web address] Copies to: MD Derrek Adan DO CAROTID DUPLEX INDICATION: Vertigo PROCEDURE: Color-flow duplex scanning is used to interrogate the extracranial carotid arterial system, as well as both vertebral arteries. Both carotid bifurcations show some smooth homogeneous plaque formation. The proximal right internal carotid artery shows a highest peak systolic velocity of 85.1 cm/s with an end-diastolic velocity of 38.4 cm/s . The mid internal carotid artery measures 102 cm/s peak systolic with an end diastolic velocity of 52.8 cm/s . The distal segment measures 117 cm/s peak systolic with an end diastolic velocity of 46.2 cm/s . The velocities of the right common carotid artery are 104 cm/s peak systolic and 28.6 cm/s end-diastolic and 86 cm/s peak systolic and 34.7 cm/s end diastolic distally. The peak systolic velocity ratio of the internal to the common carotid artery is 1.36 . The external carotid artery measures 127 cm/s peak systolic. The right vertebral artery is patent at 58.4 cm/s peak systolic with antegrade flow. The proximal left internal carotid artery shows a highest peak systolic velocity of 113 cm/s with an end-diastolic velocity of 41 cm/s . The mid internal carotid artery measures 122 cm/s peak systolic with an end diastolic velocity of 56.7 cm/s . The distal segment measures 77.1 cm/s peak systolic with an end diastolic velocity of 35.7 cm/s . The velocities of the left common carotid artery are 93.9 cm/s peak systolic and 28 cm/s end-diastolic and 96 cm/s peak systolic and 25.2 cm/s end diastolic distally. The peak systolic velocity ratio of the internal to the common carotid artery is 1.27 . The external carotid artery measures 123 cm/s peak systolic. The left vertebral artery is patent at 68 cm/s peak systolic with antegrade flow. US/US carotid doppler BI IMPRESSION: MILD PLAQUE FORMATION IS NOTED BILATERALLY, WITH LESS THAN 50% STENOSIS OF BOTH EXTRACRANIAL INTERNAL CAROTID ARTERY. BOTH VERTEBRAL ARTERIES ARE PATENT WITH ANTEGRADE FLOW. Impression dictated by: Michele Dennis M.D.04/04/2023 4:04 PM Dictation Location: [place] [address] Tech: Bhakti Kay Transcribed By: HEATHER 04/04/23 160 Dictated By: Michele Dennis MD 04/04/23 160 Signed By: 04/04/23 1604 Normal [facility] Urea nitrogen [Mass/volume] in Serum or PlasmaOrdered By: Toy Yeager on 04-04-2023 Urea nitrogen [Mass/Vol] 23 mg/dL 7-25 [facility] WBC Auto (Bld) [#/Vol]Ordere d By: Toy Yeager on 04-04-2023 WBC (Bld) [#/Vol] 6.2 10*3/uL 4.1-10.5 [facility] Cholesterol [Mass/volume] in Serum or PlasmaOrdered By: Toy Yeager on 04-03-2023 Cholesterol [Mass/Vol] 69 mg/dL 140-200 [facility] Comment on above: Chol less than 200 m g/dl low riskChol 201-239 mg/dl borderline riskChol 240 mg/dl and greater high risk Cholesterol in LDL Calc [Mas s/Vol]Ordered By: Toy Yeager on 04-03-2023 Cholesterol in LDL [Mass/Vol] 17 mg/dL 0-100 [facility] Comment on above: LDL ATP III CLASSIFI CATIONLDL less than 100 mg/dL OptimalLDL 100-129 mg/dL Near or above optimalLDL 130-159 mg/dL Borderline highLDL 160-189 mg/dL HighLDL greater than 189 mg/dL Very high Cholesterol in VLDL Calc [Ma ss/Vol]Ordered By: Toy Yeager on 04-03-2023 Cholesterol in VLDL [Mass/Vol] 36 mg/dL [facility] Complete Blood Count Auto Di ffon 04-03-2023 Basophils (Bld) [#/Vol] 0.1 10*3/uL Normal 0.0-0.2 [facility] Comment on above: Result Comment: PERF ORMED BY: [place] [address] PATHOLOGIST DIESEL DRAGLINE OPERATOR MELANI GUTIÉRREZ M.D. Performed By: #### H S TROP, CK #### [facility] [address] Basophils/100 WBC (Bld) 1.0 % Normal . [facility] Comment on above: Performed By: #### H S TROP, CK #### [facility] [address] [place] [address] [place] Eosinophils (Bld) [#/Vol] 0.2 10*3/uL Normal 0.0-0.45 [facility] Comment on above: Performed By: #### H S TROP, CK #### [facility] [address] [place] [address] [place] Eosinophils/100 WBC (Bld) 3.5 % Normal . [facility] Comment on above: Performed By: #### H S TROP, CK #### [facility] [address] Erythrocyte distribution width (RBC) [Ratio] 14.5 % Normal 12.0-14.8 [facility] Comment on above: Performed By: #### H S TROP, CK #### [facility] [address] Hematocrit (Bld) [Volume fraction] 39.0 % Normal 38.8-50.0 [facility] Comment on above: Performed By: #### H S TROP, CK #### [facility] [address] Hemoglobin (Bld) [Mass/Vol] 13.8 g/dL Normal 13.0-17.0 [facility] Comment on above: Performed By: #### H S TROP, CK #### [facility] [address] Lymphocytes (Bld) [#/Vol] 1.6 10*3/uL Normal 1.00-4.8 [facility] Comment on above: Performed By: #### H S TROP, CK #### [address] Lymphocytes/100 WBC (Bld) 23.7 % Normal . [facility] Comment on above: Performed By: #### H S TROP, CK #### [facility] [address] MCH (RBC) [Entitic mass] 31.8 pg Normal 27.5-35.2 [facility] Comment on above: Performed By: #### H S TROP, CK #### [facility] [address] MCV (RBC) [Entitic vol] 90.0 fL Normal 83.5-101 [facility] Comment on above: Performed By: #### H S TROP, CK #### [facility] [address] Mean Corpuscular HGB Conc 35.4 g/dL Normal 32.5-35.6 [facility] Comment on above: Performed By: #### H S TROP, CK #### [facility] [address] Monocytes (Bld) [#/Vol] 0.7 10*3/uL Normal 0.0-0.8 [facility] Comment on above: Performed By: #### H S TROP, CK #### [facility] [address] [place] [address] [place] Monocytes/100 WBC (Bld) 9.9 % Normal . [facility] Comment on above: Performed By: #### H S TROP, CK #### [facility] [address] [place] [address] [place] Neutrophils (Bld) [#/Vol] 4.3 10*3/uL Normal 1.8-7.7 [facility] Comment on above: Performed By: #### H S TROP, CK #### [facility] [address] [place] [address] [place] Neutrophils/100 WBC (Bld) 61.9 % Normal . [facility] Comment on above: Performed By: #### H S TROP, CK #### [facility] [address] NRBC% 0.2 /100{WBC} Normal 0-0.5 [facility] Comment on above: Performed By: #### H S TROP, CK #### [facility] [address] [place] [address] [place] Platelet mean volume (Bld) [Entitic vol] 9.6 fL Normal 6.6-10.1 [facility] Comment on above: Performed By: #### H S TROP, CK #### [facility] [address] [place] [address] [place] Platelets (Bld) [#/Vol] 132 10*3/uL Low 150-450 [facility] Comment on above: Performed By: #### H S TROP, CK #### [facility] [address] [place] [address] [place] RBC (Bld) [#/Vol] 4.34 10*6/uL Normal 3.90-5.60 [facility] Comment on above: Performed By: #### H S TROP, CK #### [facility] [address] [place] [address] [place] WBC (Bld) [#/Vol] 6.9 10*3/uL Normal 4.1-10.5 [facility] Comment on above: Performed By: #### H S TROP, CK #### [facility] [address] Comprehensive Metabolic Pane lindy 04-03-2023 Albumin [Mass/Vol] 3.6 g/dL Normal 3.5-5.7 [facility] Comment on above: Performed By: #### H S TROP, CK #### [facility] [address] Albumin/Globulin [Mass ratio] 1.6 {ratio} Normal [facility] Comment on above: Performed By: #### H S TROP CK #### [facility] [address] ALP [Catalytic activity/Vol] 73 U/L Normal 34-104 [facility] Comment on above: Performed By: #### H S TROP CK #### [address] ALT [Catalytic activity/Vol] 24 U/L Normal 7-52 [facility] Comment on above: Performed By: #### H S TROP CK #### [address] Anion gap [Moles/Vol] 10.9 mmol/L Normal 6.0-15.0 [facility] Comment on above: Performed By: #### H S TROP CK #### [facility] [address] AST [Catalytic activity/Vol] 23 U/L Normal 13-39 [facility] Comment on above: Performed By: #### H S TROP CK #### [facility] [address] [place] [address] [place] Bilirubin [Mass/Vol] 0.7 mg/dL Normal 0.3-1.[address] [facility] Comment on above: Performed By: #### H S TROP CK #### [facility] [address] Calcium [Mass/Vol] 8.0 mg/dL Low 8.6-10.3 [facility] Comment on above: Performed By: #### H S TROP, CK #### [facility] [address] [place] [address] [place] Chloride [Moles/Vol] 103 mmol/L Normal 98-[address] [facility] Comment on above: Performed By: #### H S TROP, CK #### [facility] [address] [place] [address] [place] CO2 [Moles/Vol] 27.8 mmol/L Normal 21.0-31.0 [facility] Comment on above: Performed By: #### H S TROP, CK #### [facility] [address] [place] [address] [place] Creatinine [Mass/Vol] 1.05 mg/dL Normal 0.70-1.30 [facility] Comment on above: Performed By: #### H S TROP, CK #### [facility] [address] [place] [address] [place] Creatinine Clr Calc Pharmacy 107.94 Normal [facility] Comment on above: Performed By: #### H S TROP, CK #### [facility] [address] [place] [address] [place] GFR/1.73 sq M.predicted MDRD (S/P/Bld) [Vol rate/Area] mL/min/{1.73_m2} [facility] Comment on above: Performed By: #### H S TROP, CK #### [facility] [address] [place] [address] [place] Globulin (S) [Mass/Vol] 2.2 g/dL [facility] Comment on above: Performed By: #### H S TROP, CK #### [facility] [address] [place] [address] [place] Glucose [Mass/Vol] 175 mg/dL High 70-100 [facility] Comment on above: Result Comment: [facility] Glucose Reference Range is dependent on time and content of last meal. Glucose of more than 200 mg/dL in a nonstressed, ambulatory subject supports the diagnosis of Diabetes Mellitus. ADA recommended reference range Performed By: #### H S TROP, CK #### [facility] [address] [place] [id number] [place] Potassium [Moles/Vol] 3.7 mmol/L Normal 3.5-5.1 [facility] Comment on above: Performed By: #### H S TROP, CK #### [facility] [address] [place] [id number] [place] Protein [Mass/Vol] 5.8 g/dL Low 6.4-8.9 [facility] Comment on above: Performed By: #### H S TROP, CK #### [facility] [address] [place] [address] [place] Sodium [Moles/Vol] 138 mmol/L Normal 136-145 [facility] Comment on above: Performed By: #### H S TROP, CK #### [facility] [address] [place] [address] [place] Urea nitrogen [Mass/Vol] 28 mg/dL High 7-25 [facility] Comment on above: Performed By: #### H S TROP, CK #### [facility] [address] [place] [id number] [place] Creatine Kinaseon 04-03-2023 CK [Catalytic activity/Vol] 112 U/L Normal [facility] Comment on above: Performed By: #### C K, HS TROP #### [facility] [address] [place] [id number] [place] CK [Catalytic activity/Vol] 101 U/L Normal [facility] Comment on above: Performed By: #### H S TROP, CK #### [facility] [address] [place] [address] [place] Creatine kinase [Enzymatic a ctivity/volume] in Serum or PlasmaOrdered By: Toy Yeager on 04-03-2023 CK [Catalytic activity/Vol] 112 U/L [facility] ECG 12 lead ECGon 04-03-2023 ECG 12 lead ECG [facility] [place] [address] [place] [address] Electrocardiograph Report Signed Patient: Harriett Thakkar MR#: [id number] 285 : 1965 Acct:[id number] Age/Sex: 58 / M ADM Date: 04/02/23 Loc: Room: [address] [place] [address] Type: ADM INOo Attending Dr: Toy Yeager MD Ordering Provider: Toy Yeager MD Date of Service: 04/03/23 ECG/ECG 12 lead ECG: a fib Copies to: Test Reason : Blood Pressure : / mmHG Vent. Rate : 081 BPM Atrial Rate : 227 BPM P-R Int : 000 ms QRS Dur : 086 ms QT Int : 444 ms P-R-T Axes : 000 -40 045 degrees QTc Int : 515 ms Atrial fibrillation Left axis deviation Low voltage QRS Cannot rule out Anteroseptal infarct (cited on or before 02-APR-2023) Prolonged QT Abnormal ECG When compared with ECG of 02-APR-2023 09:42, Atrial fibrillation has replaced Sinus rhythm QRS axis shifted left Nonspecific T wave abnormality has replaced inverted T waves in Inferior leads Confirmed by DALLAS EM MD ([id number]) on 04/03/2023 10:49:22 AM Referred By: Electronically Signed By:DALLAS EM MD Transcribed By: MUS Signed By Dallas Em MD 0 04/03/23 1049 Normal [facility] Glucose Poct Glucometerson 0 04-03-2023 Glucose [Mass/Vol] 182 mg/dL Normal [facility] Comment on above: Result Comment: [facility] Glucose Reference Range is dependent on time and content of last meal. Glucose of more than 200 mg/dL in a nonstressed, ambulatory subject supports the diagnosis of Diabetes Mellitus. PERFORMED BY: [place] [address] PATHOLOGIST DIESEL DRAGLINE OPERATOR MELANI GUTIÉRREZ M.D. Performed By: #### H S TROP, CK #### [address] Commemt1 Glu2: Cleaned Meter Normal [facility] Comment on above: Result Comment: PERF ORMED BY: [place] [address] PATHOLOGIST DIESEL DRAGLINE OPERATOR MELANI GUTIÉRREZ M.D. Performed By: #### H S TROP, CK #### [facility] [address] Glucose [Mass/Vol] 173 mg/dL Normal [facility] Comment on above: Result Comment: [facility] Glucose Reference Range is dependent on time and content of last meal. Glucose of more than 200 mg/dL in a nonstressed, ambulatory subject supports the diagnosis of Diabetes Mellitus. Performed By: #### H S TROP, CK #### [facility] [facility] [id number] [facility] Lipid Panelon 04-03-2023 Cholesterol [Mass/Vol] 69 mg/dL Low 140-200 [facility] Comment on above: Result Comment: Chol less than 200 mg/dl low risk Chol 201-239 mg/dl borderline risk Chol 240 mg/dl and greater high risk Performed By: #### H S TROP, CK #### [facility] [address] Cholesterol in HDL [Mass/Vol] 16 mg/dL Low 23-92 [facility] Comment on above: Result Comment: HDL CHOL ATP-III CLASSIFICATION Cardiovascular Risk HDL > or equal to 60 mg/dL LOW HDL < 40 mg/dL HIGH Performed By: #### H S TROP, CK #### [facility] [address] Cholesterol.total/Ch olesterol in HDL [Mass ratio] 4.3 {ratio} Normal <5.0 [facility] Comment on above: Result Comment: PERF ORMED BY: [place] [address] PATHOLOGIST DIESEL DRAGLINE OPERATOR MELANI GUTIÉRREZ M.D. Performed By: #### H S TROP, CK #### [facility] [address] LDL Cholesterol,Calculat ed 17 mg/dL Normal 0-100 [facility] Comment on above: Result Comment: LDL ATP III CLASSIFICATION LDL less than 100 mg/dL Optimal LDL 100-129 mg/dL Near or above optimal LDL 130-159 mg/dL Borderline high LDL 160-189 mg/dL High LDL greater than 189 mg/dL Very high Performed By: #### H S TROP, CK #### [facility] [address] Triglyceride w/Reflex 182 mg/dL High 0-149 [facility] Comment on above: Result Comment: TRIG ATP III CLASSIFICATION TRIG less than 150 mg/dL Normal TRIG 150-199 mg/dL Borderline high TRIG 200-500 mg/dL High TRIG greater than 500 mg/dL Very high Standard traceable to the Center for Disease Conrtrol and Prevention (CDC) test method. Performed By: #### H S TROP, CK #### [address] VLDL CHOLESTEROL 36 mg/dL Normal [facility] Comment on above: Performed By: #### H S TROP, CK #### [address] No Panel InformationOrdered By: Toy Yeager on 04-03-2023 Bedside Glucose Comment Glu2: cleaned meter [facility] Prothrombin Time INRon 04-03 INR Coag (PPP) [Relative time] 3.3 {INR} Normal [facility] Comment on above: Result Comment: INR Therapeutic Range A) Pre- and Peroperative OAT started two weeks before surgery. NOT HIP SURGERY: 1.5 - 2.5 HIP SURGERY: 2 - 3 B) Primary and secondary prevention of venous THROMBOSIS: 2 - 3 C) Active venous thrombosis, pulmonary embolism and prevention of recurrent venous thrombosis: 2 - 3 D) Prevention of arterial thromboembolism including patients with mechanical heart valves: 3 - 4.5 PERFORMED BY: [place] [address] PATHOLOGIST DIESEL DRAGLINE OPERATOR MELANI GUTIÉRREZ M.D. Performed By: #### H S TROP, CK #### [address] PT Coag (PPP) [Time] 38.4 s High 9.0-12.[address] [facility] Comment on above: Performed By: #### H S TROP, CK #### [address] Serum or plasma high density lipoprotein (HDL) cholesterol measurementOrdered By: Toy Yeager on 04-03-2023 Cholesterol in HDL [Mass/Vol] 16 mg/dL 23-92 [facility] Comment on above: HDL CHOL ATP-III CLA SSIFICATION Cardiovascular RiskHDL > or equal to 60 mg/dL LOWHDL < 40 mg/dL HIGH Serum or plasma total choles terol/high density lipoprotein (HDL) cholesterol mass ratOrdered By: Toy Yeager on 04-03-2023 Cholesterol.total/Ch olesterol in HDL [Mass ratio] 4.3 {ratio} <5.0 [facility] Triglyceride [Mass/volume] i n Serum or PlasmaOrdered By: Toy Yeager on 04-03-2023 Triglyceride [Mass/Vol] 182 mg/dL 0-149 [facility] Comment on above: TRIG ATP III CLASSIF ICATIONTRIG less than 150 mg/dL NormalTRIG 150-199 mg/dL Borderline highTRIG 200-500 mg/dL High TRIG greater than 500 mg/dL Very highStandard traceable to the Center for Disease Conrtrol and Prevention (CDC) test method. Troponin I High Sensitivityo n 04-03-2023 Troponin I High Sensitivity 7.0 pg/mL Normal 0.0-20.0 [facility] Comment on above: Result Comment: PERF ORMED BY: [place] [address] PATHOLOGIST DIESEL DRAGLINE OPERATOR MELANI GUTIÉRREZ M.D. Performed By: #### C K, HS TROP #### [facility] [address] [place] [address] Troponin I High Sensitivity 12.0 pg/mL Normal 0.0-20.0 [facility] Comment on above: Result Comment: PERF ORMED BY: [place] [address] PATHOLOGIST DIESEL DRAGLINE OPERATOR MELANI GUTIÉRREZ M.D. Performed By: #### H S TROP, CK #### [facility] [address] [place] [address] Troponin I.cardiac [Mass/vol ume] in Serum or Plasma by Detection limit <= 0.01 ng/Ordered By: Toy Yeager on 04-03-2023 Troponin I.cardiac DL <= 0.01 ng/mL [Mass/Vol] 7.0 pg/mL 0.0-20.0 [facility] Activated partial thrombopla stin time (aPTT) in platelet poor plasma by coagulation aOrdered By: José Luis Coleman on 04-02-2023 aPTT Coag (PPP) [Time] 41.1 s 25.1-36.5 [facility] Alanine aminotransferase [En zymatic activity/volume] in Serum or PlasmaOrdered By: José Luis Coleman on 04-02-2023 ALT [Catalytic activity/Vol] 24 U/L 7-52 [facility] Albumin [Mass/volume] in Ser um or Plasma by Bromocresol green (BCG) dye binding methoOrdered By: José Luis Coleman on 04-02-2023 Albumin BCG dye [Mass/Vol] 4.1 g/dL 3.5-5.7 [facility] Alkaline phosphatase [Enzyma tic activity/volume] in Serum or PlasmaOrdered By: José Luis Coleman on 04-02-2023 ALP [Catalytic activity/Vol] 83 U/L 34-104 [facility] Aspartate aminotransferase [ Enzymatic activity/volume] in Serum or PlasmaOrdered By: José Luis Coleman on 04-02-2023 AST [Catalytic activity/Vol] 21 U/L 13-39 [facility] B-Type Natriuretic Peptideon 04-02-2023 Natriuretic peptide B (Bld) [Mass/Vol] 81.0 pg/mL Normal 5-100 [facility] Comment on above: Result Comment: PERF ORMED BY: [place] [address] PATHOLOGIST DIESEL DRAGLINE OPERATOR MELANI GUTIÉRREZ M.D. Performed By: #### H S TROP, CK #### [address] Basophils Auto (Bld) [#/Vol] Ordered By: José Luis Coleman on 04-02-2023 Basophils (Bld) [#/Vol] 0.1 10*3/uL 0.0-0.2 [facility] Basophils/100 WBC Auto (Bld) Ordered By: José Luis Coleman on 04-02-2023 Basophils/100 WBC (Bld) 1.0 % . [facility] Bilirubin.total [Mass/volume ] in Serum or PlasmaOrdered By: José Luis Coleman on 04-02-2023 Bilirubin [Mass/Vol] 0.9 mg/dL 0.3-1.[address] [facility] Calcium [Mass/volume] in Ser um or PlasmaOrdered By: José Luis Coleman on 04-02-2023 Calcium [Mass/Vol] 9.4 mg/dL 8.6-10.3 [facility] Carbon dioxide, total [Moles /volume] in Serum or PlasmaOrdered By: José Luis Coleman on 04-02-2023 CO2 [Moles/Vol] 26.2 mmol/L 21.0-31.0 [facility] Chloride [Moles/volume] in S suad or PlasmaOrdered By: José Luis Coelman on 04-02-2023 Chloride [Moles/Vol] 102 mmol/L 98-[address] [facility] Complete Blood Count Auto Di ffon 04-02-2023 Basophils (Bld) [#/Vol] 0.1 10*3/uL Normal 0.0-0.2 [facility] Comment on above: Result Comment: PERF ORMED BY: [place] [address] PATHOLOGIST DIESEL DRAGLINE OPERATOR MELANI GUTIÉRREZ M.D. Performed By: #### H S TROP, CK #### [facility] [address] [place] [address] [place] Basophils/100 WBC (Bld) 1.0 % Normal . [facility] Comment on above: Performed By: #### H S TROP, CK #### [facility] [address] [place] [address] [place] Eosinophils (Bld) [#/Vol] 0.2 10*3/uL Normal 0.0-0.45 [facility] Comment on above: Performed By: #### H S TROP, CK #### [facility] [address] [place] [address] [place] Eosinophils/100 WBC (Bld) 3.0 % Normal . [facility] Comment on above: Performed By: #### H S TROP, CK #### [facility] [address] Erythrocyte distribution width (RBC) [Ratio] 14.3 % Normal 12.0-14.8 [facility] Comment on above: Performed By: #### H S TROP, CK #### [facility] [address] Hematocrit (Bld) [Volume fraction] 43.1 % Normal 38.8-50.0 [facility] Comment on above: Performed By: #### H S TROP, CK #### [facility] [address] Hemoglobin (Bld) [Mass/Vol] 15.4 g/dL Normal 13.0-17.0 [facility] Comment on above: Performed By: #### H S TROP, CK #### [address] Lymphocytes (Bld) [#/Vol] 1.5 10*3/uL Normal 1.00-4.8 [facility] Comment on above: Performed By: #### H S TROP, CK #### [address] Lymphocytes/100 WBC (Bld) 18.7 % Normal . [facility] Comment on above: Performed By: #### H S TROP, CK #### [facility] [address] MCH (RBC) [Entitic mass] 32.1 pg Normal 27.5-35.2 [facility] Comment on above: Performed By: #### H S TROP, CK #### [facility] [address] MCV (RBC) [Entitic vol] 89.9 fL Normal 83.5-101 [facility] Comment on above: Performed By: #### H S TROP, CK #### [address] Mean Corpuscular HGB Conc 35.8 g/dL High 32.5-35.6 [facility] Comment on above: Performed By: #### H S TROP, CK #### [facility] [address] [place] [address] [place] Monocytes (Bld) [#/Vol] 0.8 10*3/uL Normal 0.0-0.8 [facility] Comment on above: Performed By: #### H S TROP, CK #### [facility] [address] [place] [address] [place] Monocytes/100 WBC (Bld) 18.18 % Normal 0.00-20.00 [facility] Comment on above: Performed By: #### H S TROP, CK #### [facility] [address] [place] [address] [place] Monocytes/100 WBC (Bld) 9.6 % Normal . [facility] Comment on above: Performed By: #### H S TROP, CK #### [facility] [address] [place] [address] [place] Neutrophils (Bld) [#/Vol] 5.3 10*3/uL Normal 1.8-7.7 [facility] Comment on above: Performed By: #### H S TROP, CK #### [facility] [address] [place] [address] [place] Neutrophils/100 WBC (Bld) 67.7 % Normal . [facility] Comment on above: Performed By: #### H S TROP, CK #### [facility] [address] [place] [address] [place] NRBC% 0.2 /100{WBC} Normal 0-0.5 [facility] Comment on above: Performed By: #### H S TROP, CK #### [facility] [address] [place] [address] [place] Platelet mean volume (Bld) [Entitic vol] 9.6 fL Normal 6.6-10.1 [facility] Comment on above: Performed By: #### H S TROP, CK #### [facility] [address] [place] [address] [place] Platelets (Bld) [#/Vol] 179 10*3/uL Normal 150-450 [facility] Comment on above: Performed By: #### H Reynaldo BEJARANO CK #### [facility] [address] RBC (Bld) [#/Vol] 4.79 10*6/uL Normal 3.90-5.60 [facility] Comment on above: Performed By: #### H Reynaldo BEJARANO CK #### [address] WBC (Bld) [#/Vol] 7.8 10*3/uL Normal 4.1-10.5 [facility] Comment on above: Performed By: #### H Reynaldo BEJARANO CK #### [address] Comprehensive Metabolic Pane lindy 04-02-2023 Albumin [Mass/Vol] 4.1 g/dL Normal 3.5-5.7 [facility] Comment on above: Performed By: #### H Reynaldo BEJARANO CK #### [address] Albumin/Globulin [Mass ratio] 1.6 {ratio} Normal [facility] Comment on above: Performed By: #### Concepcion BEJARANO CK #### [address] ALP [Catalytic activity/Vol] 83 U/L Normal 34-104 [facility] Comment on above: Performed By: #### H Reynaldo BEJARANO CK #### [address] ALT [Catalytic activity/Vol] 24 U/L Normal 7-52 [facility] Comment on above: Performed By: #### H S CARLEE CK #### [address] Anion gap [Moles/Vol] 15.1 mmol/L High 6.0-15.0 [facility] Comment on above: Performed By: #### H Reynaldo BEJARANO CK #### [address] AST [Catalytic activity/Vol] 21 U/L Normal 13-39 [facility] Comment on above: Performed By: #### H S TROP, CK #### [facility] [address] [place] [address] [place] Bilirubin [Mass/Vol] 0.9 mg/dL Normal 0.3-1.[address] [facility] Comment on above: Performed By: #### H S TROP, CK #### [facility] [address] [place] [address] [place] Calcium [Mass/Vol] 9.4 mg/dL Normal 8.6-10.3 [facility] Comment on above: Performed By: #### H S TROP, CK #### [facility] [address] [place] [address] [place] Chloride [Moles/Vol] 102 mmol/L Normal 98-[address] [facility] Comment on above: Performed By: #### H S TROP, CK #### [facility] [address] [place] [address] [place] CO2 [Moles/Vol] 26.2 mmol/L Normal 21.0-31.0 [facility] Comment on above: Performed By: #### H S TROP, CK #### [facility] [address] [place] [address] [place] Creatinine [Mass/Vol] 1.46 mg/dL High 0.70-1.30 [facility] Comment on above: Performed By: #### H S TROP, CK #### [facility] [address] [place] [address] [place] Creatinine Clr Calc Pharmacy 77.99 Normal [facility] Comment on above: Result Comment: PERF ORMED BY: [place] [address] PATHOLOGIST DIESEL DRAGLINE OPERATOR MELANI GUTIÉRREZ M.D. Performed By: #### H S TROP, CK #### [facility] [address] [place] [address] [place] GFR/1.73 sq M.predicted MDRD (S/P/Bld) [Vol rate/Area] 54.714 mL/min/{1.73_m2} Normal [facility] Comment on above: Performed By: #### H S CARLEE CK #### [facility] [address] Globulin (S) [Mass/Vol] 2.6 g/dL Normal [facility] Comment on above: Performed By: #### H S CARLEE CK #### [facility] [address] Glucose [Mass/Vol] 207 mg/dL High 70-100 [facility] Comment on above: Result Comment: [facility] Glucose Reference Range is dependent on time and content of last meal. Glucose of more than 200 mg/dL in a nonstressed, ambulatory subject supports the diagnosis of Diabetes Mellitus. ADA recommended reference range Performed By: #### H S CARLEE CK #### [address] Potassium [Moles/Vol] 4.3 mmol/L Normal 3.5-5.1 [facility] Comment on above: Performed By: #### H Reynaldo BEJARANO CK #### [address] Protein [Mass/Vol] 6.7 g/dL Normal 6.4-8.9 [facility] Comment on above: Performed By: #### H Reynaldo BEJARANO CK #### [address] Sodium [Moles/Vol] 139 mmol/L Normal 136-145 [facility] Comment on above: Performed By: #### H S CARLEE CK #### [place] [address] [place] Urea nitrogen [Mass/Vol] 33 mg/dL High 7-25 [facility] Comment on above: Performed By: #### H S CARLEE CK #### [place] [address] [place] Creatine Kinaseon 04-02-2023 CK [Catalytic activity/Vol] 97 U/L Normal 30-223 [facility] Comment on above: Performed By: #### H S CARLEE CK #### [place] [address] [place] CK [Catalytic activity/Vol] 97 U/L Normal 30-223 [facility] Comment on above: Performed By: #### C K, HS TROP #### [facility] [address] [place] [address] [place] CK [Catalytic activity/Vol] 98 U/L Normal 30-223 [facility] Comment on above: Performed By: #### H S TROP, CK #### [facility] [id number] [facility] Creatinine [Mass/volume] in Serum or PlasmaOrdered By: José Luis Coleman on 04-02-2023 Creatinine [Mass/Vol] 1.46 mg/dL 0.70-1.30 [facility] ECG 12 lead ECGon 04-02-2023 ECG 12 lead ECG [facility] Main [place] [address] [place] [address] Electrocardiograph Report Signed Patient: Harriett Thakkar MR#: [id number] : 1965 Acct:[id number] Age/Sex: 58 / M ADM Date: 04/02/23 Loc: Room: [address] [place] [address] Type: ADM INOo Attending Dr: Toy Yeager MD Ordering Provider: José Luis Coleman DO Date of Service: 04/02/23 ECG/ECG 12 lead ECG: Shortness of Breath/Dyspnea Copies to: Test Reason : Blood Pressure : / mmHG Vent. Rate : 095 BPM Atrial Rate : 095 BPM P-R Int : 188 ms QRS Dur : 078 ms QT Int : 404 ms P-R-T Axes : 026 100 -22 degrees QTc Int : 507 ms Normal sinus rhythm Rightward axis Low voltage QRS Cannot rule out Anteroseptal infarct (cited on or before 02-APR-2023) Abnormal ECG When compared with ECG of 01-MAR-2022 19:19, No significant change was found Confirmed by José Luis Coleman DO ([id number]) on 04/02/2023 2:43:56 PM Referred By: Electronically Signed By:José Luis Coleman DO Transcribed By: MUS Signed By José Luis Coleman DO 3 1444 Normal [facility] Eosinophils Auto (Bld) [#/Vo l]Ordered By: José Luis Coleman on 04-02-2023 Eosinophils (Bld) [#/Vol] 0.2 10*3/uL 0.0-0.45 [facility] Eosinophils/100 WBC Auto (Bl d)Ordered By: José Luis Coleman on 04-02-2023 Eosinophils/100 WBC (Bld) 3.0 % . [facility] Erythrocyte distribution wid th Auto (RBC) [Ratio]Ordered By: José Luis Coleman on 04-02-2023 Erythrocyte distribution width (RBC) [Ratio] 14.3 % 12.0-14.8 [facility] Globulin Calc (S) [Mass/Vol] Ordered By: José Luis Coleman on 04-02-2023 Globulin (S) [Mass/Vol] 2.6 g/dL [facility] Glucose Poct Glucometerson 0 04-02-2023 Glucose [Mass/Vol] 122 mg/dL Normal [facility] Comment on above: Result Comment: [facility] Glucose Reference Range is dependent on time and content of last meal. Glucose of more than 200 mg/dL in a nonstressed, ambulatory subject supports the diagnosis of Diabetes Mellitus. PERFORMED BY: [place] [address] PATHOLOGIST DIESEL DRAGLINE OPERATOR MELANI GUTIÉRREZ M.D. Performed By: #### H S TROP, CK #### [facility] [address] [place] [address] Commemt1 Glu2: Cleaned Meter Normal [facility] Comment on above: Result Comment: PERF ORMED BY: [place] [address] PATHOLOGIST DIESEL DRAGLINE OPERATOR MELANI GUTIÉRREZ M.D. Performed By: #### C K, HS TROP #### [facility] [address] [place] [address] Glucose [Mass/Vol] 112 mg/dL Normal [facility] Comment on above: Result Comment: [facility] Glucose Reference Range is dependent on time and content of last meal. Glucose of more than 200 mg/dL in a nonstressed, ambulatory subject supports the diagnosis of Diabetes Mellitus. Performed By: #### C K, HS TROP #### [address] Glucose [Mass/volume] in Ser um or PlasmaOrdered By: José Luis Coleman on 04-02-2023 Glucose [Mass/Vol] 207 mg/dL 70-100 [facility] Comment on above: ADA recommended refe rence rangeRandom Glucose Reference Range is dependent on time and content of last meal. Glucose of more than 200 mg/dL in a nonstressed, ambulatory subject supports the diagnosis of Diabetes Mellitus. Hematocrit Auto (Bld) [Volum e fraction]Ordered By: José Luis Coleman on 04-02-2023 Hematocrit (Bld) [Volume fraction] 43.1 % 38.8-50.0 [facility] Hemoglobin [Mass/volume] in BloodOrdered By: José Luis Coleman on 04-02-2023 Hemoglobin (Bld) [Mass/Vol] 15.4 g/dL 13.0-17.0 [facility] Laboratory - CoagulationOrde red By: José Luis Coleman on 04-02-2023 PT Coag (PPP) [Time] 32.0 s 9.0-12.[address] [facility] Leukocytes [#/volume] correc kaylee for nucleated erythrocytes in Blood by Automated counOrdered By: José Luis Coleman on 04-02-2023 WBC corrected for nucl RBC Auto (Bld) [#/Vol] 7.8 10*3/uL 4.1-10.5 [facility] Lymphocytes Auto (Bld) [#/Vo l]Ordered By: José Luis Coleman on 04-02-2023 Lymphocytes (Bld) [#/Vol] 1.5 10*3/uL 1.00-4.8 [facility] Lymphocytes/100 WBC Auto (Bl d)Ordered By: José Luis Coleman on 04-02-2023 Lymphocytes/100 WBC (Bld) 18.7 % . [facility] MCH Auto (RBC) [Entitic mass ]Ordered By: José Luis Coleman on 04-02-2023 MCH (RBC) [Entitic mass] 32.1 pg 27.5-35.2 [facility] MCHC Auto (RBC) [Mass/Vol]Or dered By: José Luis Coleman on 04-02-2023 MCHC (RBC) [Mass/Vol] 35.8 g/dL 32.5-35.6 [facility] MCV Auto (RBC) [Entitic vol] Ordered By: José Luis Coleman on 04-02-2023 MCV (RBC) [Entitic vol] 89.9 fL 83.5-101 [facility] Monocyte distribution width [Entitic volume] in Blood by AutomatedOrdered By: José Luis Coleman on 04-02-2023 Monocyte distribution width Auto (Bld) [Entitic vol] 18.18 % 0.00-20.00 [facility] Monocytes Auto (Bld) [#/Vol] Ordered By: José Luis Coleman on 04-02-2023 Monocytes (Bld) [#/Vol] 0.8 10*3/uL 0.0-0.8 [facility] Monocytes/100 WBC Auto (Bld) Ordered By: José Luis Coleman on 04-02-2023 Monocytes/100 WBC (Bld) 9.6 % . [facility] Natriuretic peptide B [Mass/ Vol]Ordered By: José Luis Coleman on 04-02-2023 Natriuretic peptide B (Bld) [Mass/Vol] 81.0 pg/mL 5-100 [facility] Neutrophils Auto (Bld) [#/Vo l]Ordered By: José Luis Coleman on 04-02-2023 Neutrophils (Bld) [#/Vol] 5.3 10*3/uL 1.8-7.7 [facility] Neutrophils/100 WBC Auto (Bl d)Ordered By: José Luis Coleman on 04-02-2023 Neutrophils/100 WBC (Bld) 67.7 % . [facility] No Panel InformationOrdered By: José Luis Coleman on 04-02-2023 Estimated GFR (CKD-EPI) 54.714 mL/Min [facility] Creatinine Clearance (Chem 77.99 [facility] Nucleated erythrocytes [Pres ence] in Blood by Automated countOrdered By: José Luis Coleman on 04-02-2023 Nucleated RBC Auto Ql (Bld) 0.2 /100{WBC} 0-0.5 [facility] Partial Thromboplastin Timeo n 04-02-2023 aPTT Coag (Bld) [Time] 41.1 s High 25.1-36.5 [facility] Comment on above: Result Comment: PERF ORMED BY: [place] [address] PATHOLOGIST DIESEL DRAGLINE OPERATOR MELANI GUTIÉRREZ M.D. Performed By: #### H S TROP, CK #### [address] Platelet mean volume Auto (B ld) [Entitic vol]Ordered By: José Luis Coleman on 04-02-2023 Platelet mean volume (Bld) [Entitic vol] 9.6 fL 6.6-10.1 [facility] Platelet poor plasma interna tional normalized ratio (INR) by coagulation assay (relatOrdered By: José Luis Coleman on 04-02-2023 INR Coag (PPP) [Relative time] 2.8 {INR} [facility] Comment on above: INR Therapeutic Rang e A) Pre- and Peroperative OAT started two weeks before surgery. NOT HIP SURGERY: 1.5 - 2.5 HIP SURGERY: 2 - 3B) Primary and secondary prevention of venous THROMBOSIS: 2 - 3C) Active venous thrombosis, pulmonary embolismand prevention of recurrent venous thrombosis: 2 - 3D) Prevention of arterial thromboembolismincluding patients with mechanical heart valves: 3 - 4.5 Platelets Auto (Bld) [#/Vol] Ordered By: José Luis Coleman on 04-02-2023 Platelets (Bld) [#/Vol] 179 10*3/uL 150-450 [facility] Potassium [Moles/volume] in Serum or PlasmaOrdered By: José Luis Coleman on 04-02-2023 Potassium [Moles/Vol] 4.3 mmol/L 3.5-5.1 [facility] Protein [Mass/volume] in Ser um or PlasmaOrdered By: José Luis Coleman on 04-02-2023 Protein [Mass/Vol] 6.7 g/dL 6.4-8.9 [facility] Prothrombin Time INRon 04-02 INR Coag (PPP) [Relative time] 2.8 {INR} Normal [facility] Comment on above: Result Comment: INR Therapeutic Range A) Pre- and Peroperative OAT started two weeks before surgery. NOT HIP SURGERY: 1.5 - 2.5 HIP SURGERY: 2 - 3 B) Primary and secondary prevention of venous THROMBOSIS: 2 - 3 C) Active venous thrombosis, pulmonary embolism and prevention of recurrent venous thrombosis: 2 - 3 D) Prevention of arterial thromboembolism including patients with mechanical heart valves: 3 - 4.5 Performed By: #### H S TROP, CK #### [facility] [address] [place] [address] PT Coag (PPP) [Time] 32.0 s High 9.0-12.[address] [facility] Comment on above: Performed By: #### H S TROP, CK #### [address] RBC Auto (Bld) [#/Vol]Ordere d By: José Luis Coleman on 04-02-2023 RBC (Bld) [#/Vol] 4.79 10*6/uL 3.90-5.60 [facility] Serum or plasma albumin/glob ulin mass ratioOrdered By: José Luis Coleman on 04-02-2023 Albumin/Globulin [Mass ratio] 1.6 {ratio} [facility] Serum or plasma anion gap de terminationOrdered By: José Luis Coleman on 04-02-2023 Anion gap [Moles/Vol] 15.1 mmol/L 6.0-15.0 [facility] Sodium [Moles/volume] in Ser um or PlasmaOrdered By: José Luis Coleman on 04-02-2023 Sodium [Moles/Vol] 139 mmol/L 136-145 [facility] Troponin I High Sensitivityo n 04-02-2023 Troponin I High Sensitivity 14.5 pg/mL Normal 0.0-20.0 [facility] Comment on above: Result Comment: PERF ORMED BY: [place] [address] PATHOLOGIST DIESEL DRAGLINE OPERATOR MELANI GUTIÉRREZ M.D. Performed By: #### H S TROP, CK #### [address] Troponin I High Sensitivity 8.5 pg/mL Normal 0.0-20.0 [facility] Comment on above: Result Comment: PERF ORMED BY: [place] [address] PATHOLOGIST DIESEL DRAGLINE OPERATOR MELANI GUTIÉRREZ M.D. Performed By: #### C K, HS TROP #### [facility] [address] [place] [address] [place] Troponin I High Sensitivity 8.9 pg/mL Normal 0.0-20.0 [facility] Comment on above: Result Comment: PERF ORMED BY: [place] [address] PATHOLOGIST DIESEL DRAGLINE OPERATOR MELANI GUTIÉRREZ M.D. Performed By: #### H S TROP, CK #### [place] [address] [place] Troponin I High Sensitivity 8.8 pg/mL Normal 0.0-20.0 [facility] Comment on above: Result Comment: PERF ORMED BY: [place] [address] PATHOLOGIST DIESEL DRAGLINE OPERATOR MELANI GUTIÉRREZ M.D. Performed By: #### H S TROP, CK #### [facility] [address] [place] [address] [place] Troponin I.cardiac [Mass/vol ume] in Serum or Plasma by Detection limit <= 0.01 ng/Ordered By: José Luis Coleman on 04-02-2023 Troponin I.cardiac DL <= 0.01 ng/mL [Mass/Vol] 8.8 pg/mL 0.0-20.0 [facility] Urea nitrogen [Mass/volume] in Serum or PlasmaOrdered By: José Luis Coleman on 04-02-2023 Urea nitrogen [Mass/Vol] 33 mg/dL 04-12 [facility] WBC Auto (Bld) [#/Vol]Ordere d By: José Luis Coleman on 04-02-2023 WBC (Bld) [#/Vol] 7.8 10*3/uL 4.1-10.5 [facility] XR chest 1V portableon 04-02 XR chest 1V portable [facility] [place] [address] [place] [address] XRay Report Signed Patient: Harriett Thakkar MR#: [id number] : 1965 Acct:[id number] Age/Sex: 58 / M ADM Date: 04/02/23 Loc: ER Room: Type: PRE ER Attending Dr: Copies to: José Luis Coleman DO Ordering Provider: José Luis Coleman DO Date of Service: 04/02/23 XR/XR chest 1V portable: Shortness of Breath/Dyspnea PORTABLE AP ERECT CHEST 1004 hours CLINICAL HISTORY: Shortness of breath and heaviness COMPARISON: 03/01/2022 Assessment is slightly limited by large body habitus. The heart is within normal limits. There is no vascular congestion. The lungs, as visualized, are clear. There is no effusion or pneumothorax. The osseous structures are intact. Mild endplate spurring is visualized. XR/XR chest 1V portable IMPRESSION: NO ACUTE FINDINGS Impression dictated by: Erica Hay M.D.04/02/2023 10:41 AM Dictation Location: [place] [address] Transcribed By: [facility] 04/02/23 1041 Dictated By: Erica Hay MD 04/02/23 1040 Signed By: 04/02/23 1041 [facility] Prothrombin Time INRon 03-14 INR Coag (PPP) [Relative time] 2.7 {INR} [employer] Other Prothrombin Time INR Nort [employer] Other Prothrombin Time INRon 02-16 Prothrombin Time INR Nort [employer] Other Prothrombin Time INRon 01-25 INR Coag (PPP) [Relative time] 2.7 {INR} [employer] Other Prothrombin Time INR Nort [employer] Other Ambulatory Visit Summaryon 0 01-19-2023 Ambulatory Visit Summary HARRIETT THAKKAR :1965 Visit Date:01/19/2023 Ambulatory Visit Instructions Your Diagnosis BMI 39.0-39.9,adult Class 3 obesity Your Care Team Attending Physician - GLADYS GARCIA MD Primary Care Physician - GLADYS GARCIA MD This Is Your Medications List Misc Prescription ([facility] Prescription) Misc [facility] aspirin (aspirin 81 mg Oral EC Tab) atorvastatin (atorvastatin 80 mg Tab) clopidogrel (clopidogrel 75 mg Tab) dofetilide (Tikosyn 250 mcg oral capsule) furosemide (furosemide 80 mg Tab) glyBURIDE (glyBURIDE 5 mg Tab) insulin aspart (NovoLOG 100 units/mL injectable solution) insulin glargine (Lantus Solostar Pen 100 units/mL subcutaneous solution) magnesium oxide (magnesium oxide 400 mg Tab) metformin (metformin 850 mg Tab) metoprolol (metoprolol 25 mg ER Tab) midodrine (midodrine 2.5 mg oral tablet) nitroglycerin (nitroglycerin 0.4 mg sublingual Tab) omeprazole (omeprazole 20 mg Cap-DR) potassium chloride (potassium chloride 10 mEq Cap-ER) potassium chloride (potassium chloride 20 mEq ER Tab) semaglutide (Ozempic 8 mg/3 mL (2 mg dose) subcutaneous solution) warfarin (warfarin 4 mg Tab) Procedures Performed Teresa catheter (05/30/1992), Amputation - action, Discectomy. Discharge Vitals Heart Rate (Peripheral) 93 Respiratory Rate 20 Blood Pressure 126/80 Height 187.96 cm Height 74 in Weight 139.6 kg Weight 307.12 lb BMI 39.51 Medications What How Much When Instructions Unchanged aspirin (aspirin 81 mg Oral EC Tab) 1 Tablets By Mouth Every day Unchanged atorvastatin (atorvastatin 80 mg Tab) 1 Tablets By Mouth Every day Unchanged clopidogrel (clopidogrel 75 mg Tab) 1 Tablets By Mouth Every day Unchanged dofetilide (Tikosyn 250 mcg oral capsule) 1 Capsules By Mouth 2 times a day Unchanged furosemide (furosemide 80 mg Tab) 1 Tablets By Mouth Every day Unchanged glyBURIDE (glyBURIDE 5 mg Tab) By Mouth Every day Unchanged insulin aspart (NovoLOG 100 units/ mL injectable solution) Subcutaneous Before meals Unchanged insulin glargine (Lantus Solostar Pen 100 units/ mL subcutaneous solution) Subcutaneous Every day Unchanged magnesium oxide (magnesium oxide 400 mg Tab) 1 Tablets By Mouth 3 times a day Duration: 30 Days Unchanged metformin (metformin 850 mg Tab) By Mouth Once a day (in the morning) Unchanged metoprolol (metoprolol 25 mg ER Tab) 1 Tablets By Mouth Every day Unchanged midodrine (midodrine 2.5 mg oral tablet) 2 Tablets By Mouth 3 times a day Unchanged Misc Prescription (Misc DME Prescription) Unchanged Misc Prescription (Misc DME Prescription) Unchanged nitroglycerin (nitroglycerin 0.4 mg sublingual Tab) 1 Tablets Sublingual Every 5 minutes as needed for for chest pain prn chest pain Unchanged omeprazole (omeprazole 20 mg Cap-DR) 1 Capsules By Mouth Every day Unchanged potassium chloride (potassium chloride 10 mEq Cap-ER) 1 Capsules By Mouth Every day Unchanged potassium chloride (potassium chloride 20 mEq ER Tab) 1 Tablets By Mouth Every day Unchanged semaglutide (Ozempic 8 mg/ 3 mL (2 mg dose) subcutaneous solution) 2 Milligram Subcutaneous Every week Unchanged warfarin (warfarin 4 mg Tab) See instructions 7.5 mg orally on mondays only and 5mg the rest of the days of the week Allergies penicillin (Mild) sulfa drugs (Moderate) Problems Ongoing - Any problem that you are currently receiving treatment for. Diabetic ulcer of foot associated with diabetes mellitus due to underlying condition, with bone involvement without evidence of necrosis Hypertension Hypokalemia Hypomagnesemia Paroxysmal atrial fibrillation with rapid ventricular response Secondary polycythemia Sleep apnea Stress and adjustment reaction Supraventricular tachycardia Type 1 diabetes Historical - Any problem that you are no longer receiving treatment for. Cardiac contusion and hemopericardium COVID-19 Normal [facility] Prothrombin Time INRon 01-13 INR Coag (PPP) [Relative time] 3.2 {INR} [facility] [employer] Other Prothrombin Time INR Nort [facility] [employer] Other Office Visit (Cardiology)on 01-11-2023 Follow-up visit Diagnoses/Problems Assessed 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 (414.01) (I25.10) History of PTCA (V45.82) (Z98.61) History of GA (myocardial infarction) (412) (I25.2) Ventricular tachycardia, nonsustained (427.1) (I47.29) Paroxysmal atrial fibrillation (427.31) (I48.0) Anticoagulated (V58.61) (Z79.01) High risk medication use (V58.69) (Z79.899) Ischemic cardiomyopathy (414.8) (I25.5) Essential hypertension (401.9) (I10) Hyperlipidemia (272.4) (E78.5) Diabetes mellitus (250.00) (E11.9) Pulmonary embolus (415.19) (I26.99) Sleep apnea (780.57) (G47.30) Class 2 obesity with body mass index (BMI) of 37.0 to 37.9 in adult (278.00,V85.37) (E66.9,Z68.37) Never a smoker Orthostatic hypotension (458.0) (I95.1) Orders Class 2 obesity with body mass index (BMI) of 37.0 to 37.9 in adult Healthy Weight Tips; Status:Complete - Retrospective Authorization; Done: [id number] Some eating tips that can help you lose weight.; Status:Complete - Retrospective Authorization; Done: [id number] 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 Renew: Atorvastatin Calcium 80 MG Oral Tablet; take 1 tablet by mouth every evening Paroxysmal atrial fibrillation IO EKG Electrocardiogram- 12 Lead; Status:Complete; Done: [id number] SocHx: Never a smoker Tobacco Use Screening; Status:Complete; Done: [id number] Patient Instructions Please bring all medicines, vitamins, and herbal supplements with you when you come to the office. Prescriptions will not be filled unless you are compliant with your follow up appointments or have a follow up appointment scheduled as per instruction of your physician. Refills should be requested at the time of your visit. Follow up in 6 months with EKG Same medications. The provider reviewed the following test(s) and result(s) with the patient: ECG and laboratory tests Chief Complaint HARRIETT THAKKAR is being seen for a 6 month follow-up of. Patient is in the office for follow-up accompanied by his daughter. Since he was last seen in the office he had 30-day event monitor which I reviewed with him and his daughter. It demonstrated sinus rhythm with occasional atrial fibrillation with RVR and short runs of irregularly irregular wide-complex rhythm suggestive of atrial fibrillation with aberrant conduction. He had no syncopal events and has had no breakthrough prolonged episode of atrial fibrillation while he is on dofetilide. He is currently anticoagulated with Coumadin. He has retired since last summer and continues to have occasional dizziness which are likely caused by autonomic dysfunction from diabetes. His A1c is not under control. He reports no angina and no syncope. His lipids are under excellent control based on recent testing. He has no symptoms suggestive of heart failure. Has no claudications or symptoms of TIA. His cardiac and pulmonary examinations were normal. Lab data since last visit were reviewed with the patient Assessment/recommend ations: 1-Paroxysmal atrial fibrillation. Currently normal sinus rhythm on dofetilide and Coumadin with no changes needed. 2?sleep apnea intolerant to CPAP machine, patient knows that this can lead to atrial fibrillation episodes. 3?single-vessel coronary artery disease status post angioplasty of the anterior descending artery with stent thrombosis leading to acute ST elevation myocardial infarction treated immediately with stenting. He will remain on antiplatelet therapy along with other secondary measures to prevent recurrent coronary artery disease. Nuclear stress test March 2021 revealed no ischemia but anteroseptal apical myocardial infarction 4?morbid obesity, the patient was advised to continue to work on low-calorie diet to bring his BMI down. 5?diabetes this has been handled by his family physician.. A1c not on target yet, managed by PCP 6?orthostatic hypotension, with intermittent dizziness that is positional. Presently on midodrine which has been well-tolerated. Patient was not orthostatic in the office today. 7?peripheral neuropathy from diabetes, this is contributing to positional dizziness. 8?hyperlipidemia on atorvastatin, lipid profile was excellent 9?high-risk medication with antiplatelet therapy, antiarrhythmics and anticoagulants, well-tolerated 10?History of pulmonary embolism on chronic Coumadin therapy, no recurrences Surgical History Problems History of Cardiac catheterization with stent placement History of Colonoscopy [id number] History of Neck surgery disectomy History of Toe amputation Past Medical History Problems History of dizziness (V13.89) (Z87.898) Resolved Date: 16 Dec 2021 History of dyspnea (V12.69) (Z87.898) Resolved Date: 16 Dec 2021 Current Meds Medication NameInstruction Atorvastatin Calcium 80 MG Oral Tablettake 1 tablet by mouth every evening Clopidogrel Bisulfate 75 MG Oral TabletTake (more content not included)... Normal [employer] Tobacco Screening.on 023 Tobacco use status [facility]PH[facility] b) No [facility] y [facility] DO Work Phone: Physician Referralon 023 Physician Referral [id number] #1.00CD:127 Normal [facility] Prothrombin Time INRon 12-30 INR Coag (PPP) [Relative time] 2.5 {INR} [facility] [employer] Other Prothrombin Time INR Nort [facility] [employer] Other Lab Reportson 12-29-2022 Lab Reports [id number] #1.00CD:127 Normal [facility] Lab Reports [id number] #1.00CD:127 Normal [facility] CBC AUTO DIFFon 12-23-2022 BASO # 0.0 103/ul Normal 0.0-0.1 [facility] Comment on above: Performed By: #### C BC #### [facility] [address] [place] [address] Dr. Rayshawn Clark Basophils/100 WBC (Bld) 0.4 % Normal 0.2-2.0 [facility] Comment on above: Performed By: #### C BC #### [facility] [address] [place] [address] Dr. Rayshawn Clark EO # 0.3 103/ul Normal 0.0-0.7 [facility] Comment on above: Performed By: #### C BC #### [facility] [address] [place] [address] Dr. Rayshawn Clark Eosinophils/100 WBC (Bld) 3.5 % Normal 0.9-7.0 [facility] Comment on above: Performed By: #### C BC #### [facility] [address] [place] [address] Dr. Rayshawn Clark Erythrocyte distribution width (RBC) [Ratio] 12.5 % Normal 11.0-15.0 [facility] Comment on above: Performed By: #### C BC #### [facility] [address] [place] [address] Dr. Rayshawn Clark Hematocrit (Bld) [Volume fraction] 43.3 % Normal 42.0-54.0 [facility] Comment on above: Performed By: #### C BC #### [facility] [address] [place] [address] Dr. Rayshawn Clark Hemoglobin (Bld) [Mass/Vol] 15.6 g/dL Normal 14.0-18.0 [facility] Comment on above: Performed By: #### C BC #### [facility] [address] [place] [address] Dr. Rayshawn Clark IG # 0.03 10e3/ul Normal 0.00-0.03 [facility] Comment on above: Performed By: #### C BC #### [facility] [address] [place] [address] Dr. Rayshawn Clark IG % 0.4 % Normal 0.0-0.5 [facility] Comment on above: Performed By: #### C BC #### [facility] [address] [place] [address] Dr. Rayshawn Clark LYMPH # 1.4 103/ul Normal 1.2-3.8 [facility] Comment on above: Performed By: #### C BC #### [facility] [address] [place] [address] Dr. Rayshawn Clark Lymphocytes/100 WBC (Bld) 17.5 % Critically low 20.5-60.0 [facility] Comment on above: Performed By: #### C BC #### [facility] [address] [place] [address] Dr. Rayshawn Clark MANUAL DIFF REQ NO Normal [facility] Comment on above: Performed By: #### C BC #### [facility] [address] [place] [address] Dr. Rayshawn Clark MCH (RBC) [Entitic mass] 32.0 pg Normal 25.9-34.0 [facility] Comment on above: Performed By: #### C BC #### [facility] [address] [place] [address] [address] Rayshawn Clark MCHC (RBC) [Mass/Vol] 36.0 g/dL Critically high 29.9-35.2 [facility] Comment on above: Performed By: #### C BC #### [facility] [address] [place] [address] Dr. Rayshawn Clark MCV (RBC) [Entitic vol] 88.7 fL Normal 80.0-94.0 [facility] Comment on above: Performed By: #### C BC #### [facility] [address] [place] [address] Dr. Rayshawn Clark MONO # 0.6 103/ul Normal 0.3-0.8 [facility] Comment on above: Performed By: #### C BC #### [facility] [address] [place] [address] Dr. Rayshawn Clark Monocytes/100 WBC (Bld) 7.9 % Normal 1.7-12.0 [facility] Comment on above: Performed By: #### C BC #### [facility] [address] [place] [address] Dr. Rayshawn Clark NEUT # 5.6 103/ul Normal 1.4-6.5 [facility] Comment on above: Performed By: #### C BC #### [facility] [address] [place] [address] Dr. Rayshawn Clark Neutrophils/100 WBC (Bld) 70.3 % Normal 43.0-75.0 [facility] Comment on above: Performed By: #### C BC #### [facility] [address] [place] [address] Dr. Rayshawn Clark Platelet mean volume (Bld) [Entitic vol] 10.6 fL Normal 9.5-13.5 [facility] Comment on above: Performed By: #### C BC #### [facility] [address] [place] [address] Dr. Rayshawn Clark PLT 134 103/ul Critically low 150-450 [facility] Comment on above: Performed By: #### C BC #### [facility] [address] [place] [address] Dr. Rayshawn Clark RBC 4.88 106/ul Normal 4.70-6.10 [facility] Comment on above: Performed By: #### C BC #### [facility] [address] [place] [address] [address] Rayshawn Clark WBC 7.9 103/ul Normal 4.0-11.0 [facility] Comment on above: Performed By: #### C BC #### [facility] [address] [place] [address] Dr. Rayshawn Clark CRPon 12-23-2022 CRP 1.8 mg/dL Critically high <=1.0 [facility] Comment on above: Performed By: #### C RP, PREALB #### [facility] [address] [place] [address] Dr. Rayshawn Clark GLYCOHEMOGLOBIN A1Con 2022 ADA RECOMMENDATION SEE BELOW Normal [facility] Comment on above: Result Comment: ADA RECOMMENDED LIMIT 4.0 - 6.0 ADA THERAPEUTIC TARGET < 7.0 ACTION SUGGESTED > 7.0 Performed By: #### A 1C #### [facility] [address] [place] [address] Dr. Rayshawn Clark Glucose [Mass/Vol] 200 mg/dL Normal [facility] Comment on above: Performed By: #### A 1C #### [facility] [address] [place] [address] Dr. Rayshawn Clark HbA1c (Bld) [Mass fraction] 8.6 % Critically high 4.5-6.2 [facility] Comment on above: Performed By: #### A 1C #### [facility] [address] [place] [address] Dr. Rayshawn Clark LIPID PROFILEon 12-23-2022 CHOL-HDL RATIO NORM SEE BELOW Normal [facility] Comment on above: Result Comment: 3.3 - 4.4 LOW RISK 4.4 - 7.1 AVERAGE RISK 7.1 - 11.0 MODERATE RISK >11.0 HIGH RISK Performed By: #### M G, TSH, LIPID, CMP #### [facility] [address] [place] [address] Dr. Rayshawn Clark Cholesterol [Mass/Vol] 94 mg/dL Normal <=200 [facility] Comment on above: Performed By: #### M G, TSH, LIPID, CMP #### [facility] [address] [place] [address] [address] Rayshawn Clark Cholesterol in HDL [Mass/Vol] 34 mg/dL Critically low 40-60 [facility] Comment on above: Performed By: #### M G, TSH, LIPID, CMP #### [facility] [address] [place] [address] [address] Rayshawn Clark Cholesterol in LDL [Mass/Vol] 42.4 mg/dL Normal [facility] Comment on above: Performed By: #### M G, TSH, LIPID, CMP #### [facility] [address] [place] [address] Dr. Rayshawn Clark Cholesterol.total/Ch olesterol in HDL [Mass ratio] 2.8 {ratio} Normal [facility] Comment on above: Performed By: #### M G, TSH, LIPID, CMP #### [facility] [address] [place] [address] Dr. Rayshawn Clark HDL NORMAL > or = 60 mg/dl - LOW CARDIOVASCULAR RISK <40 mg/dl - HIGH CARDIOVASCULAR RISK Normal [facility] Comment on above: Performed By: #### M G, TSH, LIPID, CMP #### [facility] [address] [place] [address] Dr. Rayshawn Clark LDL CALC NORMAL SEE BELOW Normal [facility] Comment on above: Result Comment: <100 mg/dl OPTIMAL 100 - 129 mg/dl NEAR OR ABOVE OPTIMAL 130 - 159 mg/dl BORDERLINE HIGH 160 - 189 mg/dl HIGH >190 mg/dl VERY HIGH Performed By: #### M G, TSH, LIPID, CMP #### [facility] [address] [place] [address] Dr. Rayshawn Clark Triglyceride [Mass/Vol] 88 mg/dL Normal <=150 [facility] Comment on above: Performed By: #### M G, TSH, LIPID, CMP #### [facility] [address] [place] [address] Dr. Rayshawn Clark VLDL CALC 17.6 mg/dL Normal [facility] Comment on above: Performed By: #### M G, TSH, LIPID, CMP #### [facility] [address] [place] [address] Dr. Rayshawn Clark MAGNESIUMon 12-23-2022 Magnesium [Mass/Vol] 1.0 mg/dL Critically low 1.8-2.4 [facility] Comment on above: Performed By: #### M G, TSH, LIPID, CMP #### [facility] [address] [place] [address] Dr. Rayshawn Clark PREALBUMINon 12-23-2022 Prealbumin [Mass/Vol] 21.2 mg/dL Normal 20.9-45.5 [facility] Comment on above: Performed By: #### C RP, PREALB #### [facility] [address] [place] [address] Dr. Rayshawn Clark PROF 14(COMP METB)on 023 Albumin [Mass/Vol] 3.6 g/dL Normal 3.4-5.0 [facility] Comment on above: Performed By: #### M G, TSH, LIPID, CMP #### [facility] [address] [place] [address] Dr. Rayshawn Clark Albumin/Globulin [Mass ratio] 1.1 {ratio} Normal [facility] Comment on above: Performed By: #### M G, TSH, LIPID, CMP #### [facility] [address] [place] [address] Dr. Rayshawn Clark ALP [Catalytic activity/Vol] 99 U/L Normal 46-116 [facility] Comment on above: Performed By: #### M G, TSH, LIPID, CMP #### [facility] [address] [place] [address] Dr. Rayshawn Clark ALT [Catalytic activity/Vol] 35 U/L Normal 16-63 [facility] Comment on above: Performed By: #### M G, TSH, LIPID, CMP #### [facility] [address] [place] [address] Dr. Rayshawn Clark Anion gap [Moles/Vol] 13.5 mmol/L Normal [facility] Comment on above: Performed By: #### M G, TSH, LIPID, CMP #### [facility] [address] [place] [address] Dr. Rayshawn Clark AST [Catalytic activity/Vol] 18 U/L Normal 15-37 [facility] Comment on above: Performed By: #### M G, TSH, LIPID, CMP #### [facility] [address] [place] [address] Dr. Rayshawn lCark Bilirubin [Mass/Vol] 0.9 mg/dL Normal 0.2-1.0 [facility] Comment on above: Performed By: #### M G, TSH, LIPID, CMP #### [facility] [address] [place] [address] Dr. Rayshawn Clark Calcium [Mass/Vol] 9.1 mg/dL Normal 8.5-10.1 [facility] Comment on above: Performed By: #### M G, TSH, LIPID, CMP #### [facility] [address] [place] [address] Dr. Rayshawn Clark Chloride [Moles/Vol] 101 mmol/L Normal 98-107 [facility] Comment on above: Performed By: #### M G, TSH, LIPID, CMP #### [facility] [address] [place] [address] Dr. Rayshawn Clark CO2 [Moles/Vol] 26.6 mmol/L Normal 21.0-32.0 [facility] Comment on above: Performed By: #### M G, TSH, LIPID, CMP #### [facility] [address] [place] [address] Dr. Rayshawn Clark Creatinine [Mass/Vol] 1.11 mg/dL Normal 0.70-1.30 [facility] Comment on above: Performed By: #### M G, TSH, LIPID, CMP #### [facility] [address] [place] [address] Dr. Rayshawn Clark EGFR-AF CYMRAES >60 Normal >=60 [facility] Comment on above: Performed By: #### M G, TSH, LIPID, CMP #### [facility] [address] [address] [address] Rayshawn Clark EGFR-NON AF CYMRAES >60 Normal >=60 [facility] Comment on above: Performed By: #### M G, TSH, LIPID, CMP #### [facility] [address] [address] [address] Rayshawn Clark Globulin (S) [Mass/Vol] 3.4 g/dL Normal [facility] Comment on above: Performed By: #### M G, TSH, LIPID, CMP #### [facility] [address] [address] [address] Rayshawn Clark Glucose [Mass/Vol] 187 mg/dL Critically high 74-106 [facility] Comment on above: Performed By: #### M G, TSH, LIPID, CMP #### [facility] [address] [address] [address] Rayshawn Clark Potassium [Moles/Vol] 4.1 mmol/L Normal 3.5-5.1 [facility] Comment on above: Performed By: #### M G, TSH, LIPID, CMP #### [facility] [address] [address] [address] Rayshawn Clark Protein [Mass/Vol] 7.0 g/dL Normal 6.4-8.2 [facility] Comment on above: Performed By: #### M G, TSH, LIPID, CMP #### [facility] [address] [address] [address] Rayshawn Clark Sodium [Moles/Vol] 137 mmol/L Normal 136-145 [facility] Comment on above: Performed By: #### M G, TSH, LIPID, CMP #### [facility] [address] [address] [address] Rayshawn Clark Urea nitrogen [Mass/Vol] 16.0 mg/dL Normal 7.0-18.0 [facility] Comment on above: Performed By: #### M G, TSH, LIPID, CMP #### [facility] [address] [address] [address] Rayshawn Clark Urea nitrogen/Creatinine [Mass ratio] 14.4 mg/mg Normal [facility] Comment on above: Performed By: #### M G, TSH, LIPID, CMP #### [facility] [address] [address] [address] Rayshawn Clark Physician Referralon 023 Physician Referral [id number] Normal [facility] mm/hr Normal <=20 [facility] Comment on above: Performed By: #### S EDR #### [facility] [address] [address] [address] Rayshawn Clark TSHon 12-23-2022 TSH 1.119 uIU/mL Normal 0.358-3.740 [facility] Comment on above: Performed By: #### M G, TSH, LIPID, CMP #### [facility] [address] [place] [address] Dr. Rayshawn Clark Aerobic Cultureon 12-22-2022 Aerobic Culture Reason for Exam Skin ulcer of toe of left foot with fat layer exposed Toe,Left Great ORGANISM: Escherichia coli (O:ESCCOL) Quantity of Growth Heavy Growth Reason for Exam Skin ulcer of toe of left foot with fat layer exposed Toe,Left Great No Anaerobes Isolated 3 Days Reason for Exam Skin ulcer of toe of left foot with fat layer exposed Toe,Left Great Gram Stain Result Rare Gram Negative Bacilli Rare White Blood Cells Aerobic DANIELLE Charge (NMIC56) ----- SUSCEPTIBILITY ---- ORGANISM: O:ESCCOL ANTIBIOTIC INTERPRETATION DANIELLE Amikacin S <16 Amoxacillin/K Clavulanate S <8 Ampicillin S <8 Ampicillin/Sulbactam S <4 Aztreonam S <4 Cefazolin S <2 Cefepime S <2 Ceftazidime S <1 Ceftazidime/Avibacta m S <4 Ceftolozane/Tazobact am S <2 Ceftriaxone S <1 Cefuroxime S <4 Ciprofloxacin S <0.25 Ertapenem S <0.5 Gentamicin S <2 Levofloxacin S <0.5 Meropenem S <1 Meropenem/Vaborbacta m S <2 Piperacillin/Tazobac robins S <8 Tetracycline S <4 Tigecycline S <2 Tobramycin S <2 Trimethoprim/Sulfame thoxazole S <0.5 S = SUSCEPTIBLE I = INTERMEDIATE R = RESISTANT BLANK = DATA NOT AVAILABLE, OR DRUG NOT ADVISABLE OR TESTED R* = RESISTANCE DUE TO EXTENDED SPECTRUM BETA-LACTAMASES ESBL = EXTENDED SPECTRUM BETA-LACTAMASE TFG = THYMIDINE-DEPENDENT STRAIN HUNTER = BETA-LACTAMASE POSITIVE IB = INDUCIBLE BETA-LACTAMASE. APPEARS IN PLACE OF 'S' WITH SPECIES KNOWN TO POSSESS INDUCIBLE BETA-LACTAMASES. POTENTIALLY THEY MAY BECOME RESISTANT TO ALL B-LACTAM DRUGS. PERFORMED BY: [place] [address] PATHOLOGIST DIESEL DRAGLINE OPERATOR MELANI GUTIÉRREZ M.D. [facility] Comment on above: Performed By: #### C K, [facility] #### [address] Ambulatory Visit Summaryon 0 12-22-2022 Ambulatory Visit Summary HARRIETT THAKKAR :1965 Visit Date:12/22/2022 Ambulatory Visit Instructions Your Diagnosis BMI 38.0-38.9,adult Class 1 obesity due to excess calories in adult Adult general medical exam Your Care Team Attending Physician - GLADYS GARCIA MD Primary Care Physician - GLADYS GARCIA MD [facility] Is [facility]ations [facility] ([facility] Prescription) Misc Prescription ([facility] Prescription) aspirin (aspirin 81 mg Oral EC Tab) atorvastatin (atorvastatin 80 mg Tab) clopidogrel (clopidogrel 75 mg Tab) dofetilide (Tikosyn 250 mcg oral capsule) furosemide (furosemide 80 mg Tab) glyBURIDE (glyBURIDE 5 mg Tab) insulin aspart (NovoLOG 100 units/mL injectable solution) insulin glargine (Lantus Solostar Pen 100 units/mL subcutaneous solution) magnesium oxide (magnesium oxide 400 mg Tab) metformin (metformin 850 mg Tab) metoprolol (metoprolol 25 mg ER Tab) midodrine (midodrine 2.5 mg oral tablet) nitroglycerin (nitroglycerin 0.4 mg sublingual Tab) omeprazole (omeprazole 20 mg Cap-DR) potassium chloride (potassium chloride 10 mEq Cap-ER) potassium chloride (potassium chloride 20 mEq ER Tab) semaglutide (Ozempic 8 mg/3 mL (2 mg dose) subcutaneous solution) warfarin (warfarin 4 mg Tab) Procedures Performed Teresa catheter (05/30/1992), Amputation - action, Discectomy. Discharge Vitals Heart Rate (Peripheral) 84 Respiratory Rate 16 Blood Pressure 132/84 Height 187.96 cm Height 74 in Weight 136.1 kg Weight 299.42 lb BMI 38.52 What to do next Someone Will Contact You Regarding These Appointments [facility] [place], Cardiology, HX OF ORTHOSTATIC HYPOTENSION NOW POSSIBLE POTS, 12/22/22 9:58:00 EDT, BMI 38.0-38.9,adult Normal Adult general medical exam\.br\ Medications\.br\ What How Much When Instructions\.br\ Unchanged aspirin (aspirin 81 mg Oral EC Tab) 1 Tablets By Mouth Every day\.br\ Unchanged atorvastatin (atorvastatin 80 mg Tab) 1 Tablets By Mouth Every day\.br\ Unchanged clopidogrel (clopidogrel 75 mg Tab) 1 Tablets By Mouth Every day\.br\ Unchanged dofetilide (Tikosyn 250 mcg oral capsule) 1 Capsules By Mouth 2 times a day\.br\ Unchanged furosemide (furosemide 80 mg Tab) 1 Tablets By Mouth Every day\.br\ Unchanged glyBURIDE (glyBURIDE 5 mg Tab) By Mouth Every day\.br\ Unchanged insulin aspart (NovoLOG 100 units/ mL injectable solution) Subcutaneous Before meals\.br\ Unchanged insulin glargine (Lantus Solostar Pen 100 units/ mL subcutaneous solution) Subcutaneous Every day\.br\ Unchanged magnesium oxide (magnesium oxide 400 mg Tab) By Mouth Every day\.br\ Unchanged metformin (metformin 850 mg Tab) By Mouth Once a day (in the morning)\.br\ Unchanged metoprolol (metoprolol 25 mg ER Tab) 1 Tablets By Mouth Every day\.br\ Unchanged midodrine (midodrine 2.5 mg oral tablet) 2 Tablets By Mouth 3 times a day\.br\ Unchanged Misc Prescription (Misc DME Prescription)\.br \ Unchanged Misc Prescription (Misc DME Prescription)\.br \ Unchanged nitroglycerin (nitroglycerin 0.4 mg sublingual Tab) 1 Tablets Sublingual Every 5 minutes as needed for for chest pain prn chest pain \.br\ Unchanged omeprazole (omeprazole 20 mg Cap-DR) 1 Capsules By Mouth Every day\.br\ Unchanged potassium chloride (potassium chloride 10 mEq Cap-ER) 1 Capsules By Mouth Every day\.br\ Unchanged potassium chloride (potassium chloride 20 mEq ER Tab) 1 Tablets By Mouth Every day\.br\ Unchanged semaglutide (Ozempic 8 mg/ 3 mL (2 mg dose) subcutaneous solution) 2 Milligram Subcutaneous Every week\.br\ Unchanged warfarin (warfarin 4 mg Tab) See instructions 7.5 mg orally on mondays only and 5mg the rest of the days of the week \.br\ Allergies\.br\ penicillin (Mild)\.br\ sulfa drugs (Moderate)\.br\ Problems\.br\ Ongoing - Any problem that you are currently receiving treatment for.\.br\ Diabetic ulcer of foot associated with diabetes mellitus due to underlying condition, with bone involvement without evidence of necrosis\.br\ Hypertension\.br\ Hypokalemia\.br\ Hypomagnesemia\.b r\ Paroxysmal atrial fibrillation with rapid ventricular response\.br\ Secondary polycythemia\.br\ Sleep apnea\.br\ Stress and adjustment reaction\.br\ Supraventricular tachycardia\.br\ Type 1 diabetes\.br\ Historical - Any problem that you are no longer receiving treatment for.\.br\ Cardiac contusion and hemopericardium\. br\ COVID-19\.br\ \.br\ [facility] Family [facility] Office/Clini c Noteon 12-22-2022 Family Medicine Office/Clinic Note Chief Complaint wellness PE HPI Staff annual wellness PE asking about pneumovax and shingles vaccine Health Maintenance: Colonoscopy: has had 2 unsure of dates PSA: due Last Labs: due Covid: UTD No refills needed today History of Present Illness HX OF HYPOMAGNESEMIA, AND HYPOKALEMIA HTN ARLET SVT WITH BUNDLE BRANCH BLOCK POLYCYTHEMIA PAROXYSMAL ATRIAL FIB IDDM E10.42 WITH ULCER ADJUSTMENT DISORDER HAVING SPELLS WHERE THE ARMS ARE REAL WEAK LIKE BRAUN HAS SUSPENDERS ON AND FEELS LIKE HE CANNOT RAISE THEM. GOING TO MAILBOX GETS BACK AND FEELS LIKE HE IS NOT UNABLE TO GO UP THE STEPS. Review of Systems PHQ Score Initial Depression Screen Score: 4 Detailed Depression Screen Score: 9 Total Depression Screen Score: 13 Constitutional: no fever, no chills, no sweats, no weakness Skin: no Jaundice, no rash, no lesions, nopetechiae ENMT: no ear pain, no sore throat, no congestion, no hoarseness Respiratory: no shortness of breath, no cough, no orthopnea, no wheezing Cardiovascular: no chest pain, no palpitations, no edema Gastrointestinal: no nause no vomiting, no diarrhea, no GI bleeding Genitourinary: no dysuria, no hematuria, no discharge, no pain Musculoskeletal: no back pain, no trauma, no weakness NEURO: PERIPHERAL NEUROPATHY Psychiatric: no sleeping problems, no irritability, no mood swings/depression. Heme/Lymph: no bleeding tendency, no bruising tendency, no petechiae, no swollen nodes STILL WITH LOT OF DIZZINESS WITH GETTING UP AND WALKING AROUND. Additional ROS info: Except as noted in the above Review of Systems and in the History of Present Illness all other systems have been reviewed and are negative or noncontributory. ORTHOSTATIC CHANGES WITH LOW BLOOD PRESSURE AND FAST HEART RATE PRESENT TODAY. Physical Exam Vitals & Measurements HR: 84(Peripheral) RR: 16 BP: 132/84 SpO2: 95% HT: 74 in HT: 187.96 cm WT: 136.1 kg WT: 299.42 lb BMI: 38.52 General: alert, no acute distress Skin: warm, dry Head: no trauma, normocephalic Neck: Trachea midline, no adenopathy, no tenderness Eye: normal conjunctiva, sclera clear ENMT: TM's clear, oral mucosa moist, no pharyngeal erythema or exudate Cardiovascular: regular rate and rhythm, normal peripheral perfusion Respiratory: Lungs CTA, respirations non labored Chest wall: no deformity. Gastrointestinal: soft, non distended, no tenderness, no guarding. Back: No tenderness, Normal ROM, Normal alignment. Extremities: no deformity, no trauma Neurological: oriented x 4, PERIOPHERAL NEUROPATHY Psychiatric: cooperative, affect appropriate for age, normal judgement, normal psychiatric thoughts. Assessment/Plan REFER BACK TO DR ZULEYKA ROOT FOR THE ORTHOSTATIC HYPOTENSIONS WITH TACHYCARDIA. DISCUSSED MEDICINES AND PROPER TREATMENT. PREVENTIVE MEDICINE EXPLAINED. CHECK LABS EXPLAINED. DIET AND EXERCISE EXXPLAINED. WILL STOP METFORMIN FOR 3 DAYS AND CALL WITH RESULTS. IF DIARRHEA RESOLVED WILL CHANGE TO METFORMIN ER. 1. BMI 38.0-38.9,adult (Z68.38: Body mass index [BMI] 38.0-38.9, adult) 2. Class 1 obesity due to excess calories in adult (E66.09: Other obesity due to excess calories) 3. Adult general medical exam (Z00.00: Encounter for general adult medical examination without abnormal findings) Ordered: CBC w/ Auto Diff Comprehensive Metabolic Panel HgbA1c Lipid Panel Magnesium Level PSA Screen, Total Thyroid Stimulating Hormone Follow-up No qualifying data available Problem List/Past Medical History Ongoing Diabetic ulcer of foot associated with diabetes mellitus due to underlying condition, with bone involvement without evidence of necrosis Hypertension Hypokalemia Hypomagnesemia Paroxysmal atrial fibrillation with rapid ventricular response Secondary polycythemia Sleep apnea Stress and adjustment reaction Supraventricular tachycardia Type 1 diabetes Historical Cardiac contusion and hemopericardium COVID-19 Procedure/Surgical History Teresa catheter (05/30/1992), Amputation - action, Discectomy. Medications aspirin 81 mg Oral EC Tab, 81 mg= 1 tab(s), Oral, Daily, Not taking atorvastatin 80 mg Tab, 80 mg= 1 tab(s), Oral, Daily clopidogrel 75 mg Tab, 75 mg= 1 tab(s), Oral, Daily furosemide 80 mg Tab, 80 mg= 1 tab(s), Oral, Daily glyBURIDE 5 mg Tab, Oral, Daily, Not taking Lantus Solostar Pen 100 units/mL subcutaneous solution, SubCutaneous, Daily magnesium oxide 400 mg Tab, Oral, Daily, Not taking metformin 850 mg Tab, Oral, qAM metoprolol 25 mg ER Tab, 25 mg= 1 tab(s), Oral, Daily midodrine 2.5 mg oral tablet, 5 mg= 2 tab(s), Oral, TID Misc DME Prescription Misc DME Prescription nitroglycerin 0.4 mg sublingual Tab, 0.4 mg= 1 tab(s), SubLingual, q5min, PRN NovoLOG 100 units/mL injectable solution, SubCutaneous, TIDAC omeprazole 20 mg Cap-DR, 20 mg= 1 cap(s), Oral, Daily, Not taking Ozempic 8 mg/3 mL (2 mg dose) subcutaneous solution, 2 mg, SubCutane (more content not included)... Normal [facility] Comment on above: Result Comment: Elec tronically Signed By: RADHA KRAUSE, GLADYS E\.br\Date and Time Signed: 12/22/22 09:57 EDT Laboratory - CoagulationOrde red By: Nimo Fu on 12-15-2022 PT Coag (PPP) [Time] 47.1 s 9.0-12.[address] [facility] Platelet poor plasma interna tional normalized ratio (INR) by coagulation assay (relatOrdered By: Nimo Fu on 12-15-2022 INR Coag (PPP) [Relative time] 4.1 {INR} [facility] Comment on above: INR Therapeutic Rang e A) Pre- and Peroperative OAT started two weeks before surgery. NOT HIP SURGERY: 1.5 - 2.5 HIP SURGERY: 2 - 3B) Primary and secondary prevention of venous THROMBOSIS: 2 - 3C) Active venous thrombosis, pulmonary embolismand prevention of recurrent venous thrombosis: 2 - 3D) Prevention of arterial thromboembolismincluding patients with mechanical heart valves: 3 - 4.5 Prothrombin Time INRon 12-15 INR Coag (PPP) [Relative time] 4.1 {INR} Normal [facility] Comment on above: Order Comment: List the anticoagulant: HEPARIN/COUMADIN Result Comment: INR Therapeutic Range A) Pre- and Peroperative OAT started two weeks before surgery. NOT HIP SURGERY: 1.5 - 2.5 HIP SURGERY: 2 - 3 B) Primary and secondary prevention of venous THROMBOSIS: 2 - 3 C) Active venous thrombosis, pulmonary embolism and prevention of recurrent venous thrombosis: 2 - 3 D) Prevention of arterial thromboembolism including patients with mechanical heart valves: 3 - 4.5 PERFORMED BY: [address] [address] PATHOLOGIST DIESEL DRAGLINE OPERATOR MELANI GUTIÉRREZ M.D. Performed By: #### C K, HS TROP #### [facility] [address] [place] [address] [place] PT Coag (PPP) [Time] 47.1 s High 9.0-12.[address] [facility] Comment on above: Order Comment: List the anticoagulant: HEPARIN/COUMADIN Performed By: #### C K, HS TROP #### [facility] [address] [place] [address] [place] Prothrombin Time INR [employer] Other Prothrombin Time INR 3.0/3.7 [employer] Other Prothrombin Time INRon 12-02 INR Coag (PPP) [Relative time] 3.5 {INR} [employer] Other Prothrombin Time INR [employer] Other Prothrombin Time INRon 11-01 INR Coag (PPP) [Relative time] 3.2 {INR} [employer] Other Prothrombin Time INR [employer] Other Prothrombin Time INRon 10-04 INR Coag (PPP) [Relative time] 1.6 {INR} [employer] Other Prothrombin Time INR [employer] Other Cardiovasc Arrhythmia Result son 08-05-2022 Cardiovasc Arrhythmia Results Reason For Visit Event Monitor: HARRIETT is here for the application of a 30 day event monitor in office., Diagnosis: I47.29 Ordering Physician: Dr. Angel Griggs MD Enrollment sent to: [email or web address] Monitor number [id number] applied. Strip from [facility] received for Dr. Angel Griggs MD to review. Put on his desk Holter monitor printed and placed on Dr. Angel Griggs MD desk to dictate. Procedure Patient was monitored from 08/05/2022 in September 04, 2022 for 30 days for symptoms of palpitations. There were 24 rhythm strips for review, 22 of them were triggered by the patient and 2 were auto triggered. The triggered events were for symptoms of chest pain, dyspnea, palpitation and dizziness. The corresponding rhythm strips demonstrated either normal sinus rhythm or atrial fibrillation with RVR and a heart rate as fast as 137 bpm ,atrial fibrillation led to symptoms of dizziness and heart racing/palpitations, chest pain was mostly associated with normal sinus rhythm. There were few events of irregular wide-complex rhythm consistent with atrial fibrillation and aberrant conduction. Conclusion: 30-day event monitor that revealed intermittent atrial fibrillation with RVR leading to palpitations, dizziness and heart racing. Occasional short runs of irregular wide-complex rhythm consistent with atrial fibrillation and aberrant conduction. Chest pain symptoms reported by the patient did not correlate with cardiac arrhythmias Diagnosis/Problems Assessed Ventricular tachycardia, nonsustained (427.1) (I47.29) Future Appointments Date/TimeProviderSpe [facility] 01/11/2023 09:30 EleanorAngel, [id number] [facility] [address] DO Signatures Electronically signed by : Meena Moya L.P.N.; Sep 01 2022 10:04AM EST (Author) Electronically signed by : Angel Griggs MD; Sep 08 2022 2:41PM EST (Author) Normal [employer] Prothrombin Time INRon 07-26 INR Coag (PPP) [Relative time] 2.3 {INR} [facility] [employer] Other Prothrombin Time INR Nort [facility] [employer] Other LIPID PROFILEon 07-17-2022 CHOL-HDL RATIO NORM SEE BELOW Normal [facility] Comment on above: Result Comment: 3.3 - 4.4 LOW RISK 4.4 - 7.1 AVERAGE RISK 7.1 - 11.0 MODERATE RISK >11.0 HIGH RISK Performed By: #### L IPID #### [facility] [address] [place] [address] Dr. Rayshawn Clark Cholesterol [Mass/Vol] 106 mg/dL Normal <=200 [facility] Comment on above: Performed By: #### L IPID #### [facility] [address] [address] [address] Rayshawn Clark Cholesterol in HDL [Mass/Vol] 25 mg/dL Critically low 40-60 [facility] Comment on above: Performed By: #### L IPID #### [facility] [address] [address] [address] Rayshawn Clark Cholesterol in LDL [Mass/Vol] 59.2 mg/dL Normal [facility] Comment on above: Performed By: #### L IPID #### [facility] [address] [address] [address] Rayshawn Clark Cholesterol.total/Ch olesterol in HDL [Mass ratio] 4.2 {ratio} Normal [facility] Comment on above: Performed By: #### L IPID #### [facility] [address] [place], [place] [address] Dr. Rayshawn Clark HDL NORMAL > or = 60 mg/dl - LOW CARDIOVASCULAR RISK <40 mg/dl - HIGH CARDIOVASCULAR RISK Normal [facility] Comment on above: Performed By: #### L IPID #### [facility] [address] [address] [address] Rayshawn Clark LDL CALC NORMAL SEE BELOW Normal [facility] [place] [facility] Comment on above: Result Comment: <100 mg/dl OPTIMAL 100 - 129 mg/dl NEAR OR ABOVE OPTIMAL 130 - 159 mg/dl BORDERLINE HIGH 160 - 189 mg/dl HIGH >190 mg/dl VERY HIGH Performed By: #### L IPID #### [facility] [address] [place], [place] [address] Dr. Rayshawn Clark Triglyceride [Mass/Vol] 109 mg/dL Normal <=150 [facility] Comment on above: Performed By: #### L IPID #### [facility] [address] [place], [place] [address] Dr. Rayshawn Clark VLDL CALC 21.8 mg/dL Normal [facility] Comment on above: Performed By: #### L IPID #### [facility] [address] [place], [place] [address] Dr. Rayshawn Clark Office Visit (Cardiology)on 07-12-2022 Follow-up visit Diagnoses/Problems Assessed Paroxysmal atrial fibrillation (427.31) (I48.0) Ischemic cardiomyopathy (414.8) (I25.5) Orthostatic hypotension (458.0) (I95.1) History of GA (myocardial infarction) (412) (I25.2) 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 (414.01) (I25.10) Anticoagulated (V58.61) (Z79.01) Hyperlipidemia (272.4) (E78.5) History of PTCA (V45.82) (Z98.61) High risk medication use (V58.69) (Z79.899) Class 2 obesity with body mass index (BMI) of 38.0 to 38.9 in adult (278.00,V85.38) (E66.9,Z68.38) Diabetes mellitus (250.00) (E11.9) Sleep apnea (780.57) (G47.30) Syncope, near (780.2) (R55) Ventricular tachycardia, nonsustained (427.1) (I47.29) Pulmonary embolus (415.19) (I26.99) Orders Class 2 obesity with body mass index (BMI) of 38.0 to 38.9 in adult [employer]; Status:Complete - Retrospective Authorization; Done: 12Jul2022 History of GA (myocardial infarction), Hyperlipidemia Lipid Panel; Status:Active - Retrospective Authorization; Requested for:12Jul2022; Orthostatic hypotension Start: Midodrine HCl - 5 MG Oral Tablet; TAKE 1 TABLET 3 TIMES DAILY Paroxysmal atrial fibrillation IO EKG Electrocardiogram- 12 Lead; Status:Complete; Done: 12Jul2022 Patient Instructions Please bring all medicines, vitamins, and herbal supplements with you when you come to the office. Prescriptions will not be filled unless you are compliant with your follow up appointments or have a follow up appointment scheduled as per instruction of your physician. Refills should be requested at the time of your visit. Obtain holter results from [facility]- March 2022 Pt instructed to change position slowly Pt encouraged to wear compression stockings Pt will increase midodrine to 5 mg TID- pt to call in 1-2 weeks on update on orthostatic symptoms Follow up in 6 months Chief Complaint HARRIETT THAKKAR is being seen for a 6 month follow-up of. Patient is in the office for follow-up accompanied by his daughter. Since he was last seen in the office he had a visit to the emergency department at [facility] for palpitations and was found to be in sinus rhythm with mild hypokalemia and hypomagnesemia and supplements were provided. I was aware of that visit and I did review the records and I updated the patient on the findings. Since then apparently around 22 March he was assessed by his PCP with a Holter monitor for palpitations and apparently the Holter monitor showed abnormalities and what the patient described his ventricular tachycardia. I did not receive a copy of the Holter monitor and I do not have any record of a communication from his PCP in that regard. The patient continued to have symptoms of orthostatic hypotension confirmed by his own readings from home. He is on a small dose of midodrine. Had no syncope and his EKG again today revealed normal sinus rhythm heart rate in the 90s. QTc interval is in the therapeutic range. He denies any angina. He has not had any recent lab data. Blood work request was provided to the patient. His lungs sounded normal. His weight is unchanged from previous visit. He does have severe sleep apnea but has been intolerant to CPAP machine. Assessment/recommend ations: 1-Paroxysmal atrial fibrillation. Currently normal sinus rhythm on dofetilide and Coumadin with no changes needed. 2?sleep apnea intolerant to CPAP machine, patient knows that this can lead to atrial fibrillation episodes. 3?single-vessel coronary artery disease status post angioplasty of the anterior descending artery with stent thrombosis leading to acute ST elevation myocardial infarction treated immediately with stenting. He will remain on antiplatelet therapy along with other secondary measures to prevent recurrent coronary artery disease. Nuclear stress test March 2021 revealed no ischemia but anteroseptal apical myocardial infarction 4?morbid obesity, the patient was advised to continue to work on low-calorie diet to bring his BMI down. 5?diabetes this has been handled by his family physician.. A1c just over 7 by recent testing, target 6?7 6?orthostatic hypotension, the patient need to increase his midodrine up to 5 mg 3 times daily and he will call me back in 10 days to update me on his blood pressure reading if necessary will increase it further. Patient was advised to utilize compression stockings. 7?peripheral neuropathy from diabetes, this is contributing to orthostatic hypotension 8?hyperlipidemia on atorvastatin, lipid profile was ordered 9?high-risk medication with antiplatelet therapy, antiarrhythmics and anticoagulants. CBC and basic metabolic profile ordered 10?History of pulmonary embolism on chronic Coumadin therapy, no recurrences 11?patient has tendency to retain fluid and because of that he is on Lasix 60 mg daily which can aggravate orthostatic hypotension. 12- reported abnormalities on the Holter monitor done in March 2022 at the [facility]. I will try to r (more content not included)... [employer] Prothrombin Time INRon 06-21 INR Coag (PPP) [Relative time] 1.9 {INR} [employer] Other Prothrombin Time INR [employer] Other Prothrombin Time INRon 05-17 INR Coag (PPP) [Relative time] 3.1 {INR} [employer] Other Prothrombin Time INR [employer] Other Bacteria identified Aer cx N om (Unsp spec)Ordered By: S Pineda Steven on 05-12-2022 Superficial Wound Culture Escherichia coli [facility] Prothrombin Time INRon 04-07 INR Coag (PPP) [Relative time] 2.3 {INR} [employer] Other Prothrombin Time INR [facility] [employer] Other Prothrombin Time INRon 03-10 INR Coag (PPP) [Relative time] 2.7 {INR} [employer] Other Prothrombin Time INR [facility] [employer] Other Activated partial thrombopla stin time (aPTT) in platelet poor plasma by coagulation aOrdered By: Lucila Coleman on 03-01-2022 aPTT Coag (PPP) [Time] 36.5 s 25.1-36.5 [facility] Basophils Auto (Bld) [#/Vol] Ordered By: Lucila Coleman on 03-01-2022 Basophils (Bld) [#/Vol] 0.0 10*3/uL 0.0-0.2 [facility] Basophils/100 WBC Auto (Bld) Ordered By: Lucila Coleman on 03-01-2022 Basophils/100 WBC (Bld) 0.6 % . [facility] Blood hemoglobin measurement (mass/volume)Ordered By: Lucila Coleman on 03-01-2022 Hemoglobin (Bld) [Mass/Vol] 15.1 g/dL 13.0-17.0 [facility] Blood leukocytes automated c ount (number/volume)Ordered By: Lucila Coleman on 03-01-2022 WBC (Bld) [#/Vol] 6.5 10*3/uL 4.5-11.0 [facility] Body fluid albumin measureme nt (mass/volume)Ordered By: Lucila Coleman on 03-01-2022 Albumin (Body fld) [Mass/Vol] 3.3 g/dL 3.2-5.5 [facility] Creatinine and Glomerular fi ltration rate.predicted panel (S/P/Bld)Ordered By: Lucila Coleman on 03-01-2022 Creatinine [Mass/Vol] 1.13 mg/dL 0.64-1.27 [facility] Eosinophils Auto (Bld) [#/Vo l]Ordered By: Lucila Coleman on 03-01-2022 Eosinophils (Bld) [#/Vol] 0.2 10*3/uL 0.0-0.45 [facility] Eosinophils/100 WBC Auto (Bl d)Ordered By: Lucila Coleman on 03-01-2022 Eosinophils/100 WBC (Bld) 2.5 % . [facility] Erythrocyte distribution wid th Auto (RBC) [Ratio]Ordered By: Lucila Coleman on 03-01-2022 Erythrocyte distribution width (RBC) [Ratio] 14.0 % 12.0-14.8 [facility] Estimated glomerular filtrat ion rate (GFR) non- AmericanOrdered By: Lucila Coleman on 03-01-2022 GFR/1.73 sq M.predicted among non-blacks MDRD (S/P/Bld) [Vol rate/Area] > 60 mL/Min [facility] Globulin Calc (S) [Mass/Vol] Ordered By: Lucila Coleman on 03-01-2022 Globulin (S) [Mass/Vol] 2.5 g/dL [facility] Hematocrit Auto (Bld) [Volum e fraction]Ordered By: Lucila Coleman on 03-01-2022 Hematocrit (Bld) [Volume fraction] 43.1 % 38.8-50.0 [facility] Laboratory - Chemistry and C hemistry - challengeOrdered By: Lucila Coleman on 03-01-2022 Magnesium [Mass/Vol] 1.1 mg/dL 1.6-2.[address] [facility] Natriuretic peptide B (Bld) [Mass/Vol] 118.0 pg/mL 5-100 [facility] Laboratory - CoagulationOrde red By: Lucila Coleman on 03-01-2022 PT Coag (PPP) [Time] 23.9 s 9.0-12.[address] [facility] Laboratory - Hematology and Cell countsOrdered By: Lucila Coleman on 03-01-2022 Nucleated RBC/100 WBC (Bld) [Ratio] 0.1 % 0-0.5 [facility] Lymphocytes Auto (Bld) [#/Vo l]Ordered By: Lucila Coleman on 03-01-2022 Lymphocytes (Bld) [#/Vol] 1.4 10*3/uL 1.00-4.8 [facility] Lymphocytes/100 WBC Auto (Bl d)Ordered By: Lucila Coleman on 03-01-2022 Lymphocytes/100 WBC (Bld) 21.1 % . [facility] MCH Auto (RBC) [Entitic mass ]Ordered By: Lucila Coleman on 03-01-2022 MCH (RBC) [Entitic mass] 31.9 pg 27.5-35.2 [facility] MCHC Auto (RBC) [Mass/Vol]Or dered By: Lucila Coleman on 03-01-2022 MCHC (RBC) [Mass/Vol] 35.0 g/dL 32.5-35.6 [facility] MCV Auto (RBC) [Entitic vol] Ordered By: Lucila Coleman on 03-01-2022 MCV (RBC) [Entitic vol] 91.2 fL 83.5-101 [facility] Monocytes Auto (Bld) [#/Vol] Ordered By: Lucila Coleman on 03-01-2022 Monocytes (Bld) [#/Vol] 0.6 10*3/uL 0.0-0.8 [facility] Monocytes/100 WBC Auto (Bld) Ordered By: Lucila Coleman on 03-01-2022 Monocytes/100 WBC (Bld) 8.9 % . [facility] Neutrophils Auto (Bld) [#/Vo l]Ordered By: Lucila Coleman on 03-01-2022 Neutrophils (Bld) [#/Vol] 4.3 10*3/uL 1.8-7.7 [facility] Neutrophils/100 WBC Auto (Bl d)Ordered By: Lucila Coleman on 03-01-2022 Neutrophils/100 WBC (Bld) 66.9 % . [facility] No Panel InformationOrdered By: Lucila Coleman on 03-01-2022 Estimated GFR () > 60 mL/Min [facility] Comment on above: GFR estimated refere nce range: According to KDOQI guidelines, <60 ml/min/1.73m2 is sufficient to diagnose a patient with chronic kidney disease. Pharmacy Creatinine Clearance (Chem 104.57 [facility] Platelet mean volume Auto (B ld) [Entitic vol]Ordered By: Lucila Coleman on 03-01-2022 Platelet mean volume (Bld) [Entitic vol] 9.3 fL 6.6-10.1 [facility] Platelet poor plasma interna tional normalized ratio (INR) by coagulation assay (relatOrdered By: Lucila Coleman on 03-01-2022 INR Coag (PPP) [Relative time] 2.1 {INR} [facility] Comment on above: INR Therapeutic Rang e A) Pre- and Peroperative OAT started two weeks before surgery. NOT HIP SURGERY: 1.5 - 2.5 HIP SURGERY: 2 - 3 B) Primary and secondary prevention of venous THROMBOSIS: 2 - 3 C) Active venous thrombosis, pulmonary embolism and prevention of recurrent venous thrombosis: 2 - 3 D) Prevention of arterial thromboembolism including patients with mechanical heart valves: 3 - 4.5 Platelets Auto (Bld) [#/Vol] Ordered By: Lucila Coleman on 03-01-2022 Platelets (Bld) [#/Vol] 128 10*3/uL 150-450 [facility] Protein [Mass/volume] in Ser um or PlasmaOrdered By: Lucila Coleman on 03-01-2022 Protein [Mass/Vol] 5.8 g/dL 6.1-7.9 [facility] RBC Auto (Bld) [#/Vol]Ordere d By: Lucila Coleman on 03-01-2022 RBC (Bld) [#/Vol] 4.73 10*6/uL 3.90-5.60 [facility] Serum or plasma alanine rodriguez otransferase measurement without P-5'-P (enzymatic activiOrdered By: Lucila Coleman on 03-01-2022 ALT No additional P-5'-P [Catalytic activity/Vol] 30 U/L 10-60 [facility] Serum or plasma albumin/glob ulin mass ratioOrdered By: Lucila Coleman on 03-01-2022 Albumin/Globulin [Mass ratio] 1.3 {ratio} [facility] Serum or plasma alkaline kristal sphatase measurement (enzymatic activity/volume)Ordered By: Lcuila Coleman on 03-01-2022 ALP [Catalytic activity/Vol] 74 U/L 32-92 [facility] Serum or plasma aspartate am inotransferase measurement (enzymatic activity/volume)Ordered By: Lucila Coleman on 03-01-2022 AST [Catalytic activity/Vol] 22 U/L 10-42 [facility] Serum or plasma calcium jose urement (mass/volume)Ordered By: Lucila Coleman on 03-01-2022 Calcium [Mass/Vol] 8.8 mg/dL 8.2-10.2 [facility] Serum or plasma chloride payal surement (moles/volume)Ordered By: Lucila Coleman on 03-01-2022 Chloride [Moles/Vol] 99 mmol/L 95-[address] [facility] Serum or plasma glucose jose urement (mass/volume)Ordered By: Lucila Coleman on 03-01-2022 Glucose [Mass/Vol] 259 mg/dL 70-100 [facility] Comment on above: ADA recommended refe rence range Random Glucose Reference Range is dependent on time and content of last meal. Glucose of more than 200 mg/dL in a nonstressed, ambulatory subject supports the diagnosis of Diabetes Mellitus. Serum or plasma potassium me asurement (moles/volume)Ordered By: Lucila Coleman on 03-01-2022 Potassium [Moles/Vol] 3.4 mmol/L 3.5-5.1 [facility] Serum or plasma sodium measu rement (moles/volume)Ordered By: Lucila Coleman on 03-01-2022 Sodium [Moles/Vol] 140 mmol/L 136-146 [facility] Serum or plasma total biliru bin measurement (mass/volume)Ordered By: Lucila Coleman on 03-01-2022 Bilirubin [Mass/Vol] 0.6 mg/dL 0.3-1.[address] [facility] Serum or plasma total carbon dioxide measurement (moles/volume)Ordered By: Lucila Coleman on 03-01-2022 CO2 [Moles/Vol] 28.6 mmol/L 22.0-30.0 [facility] Serum or plasma urea nitroge n measurement (mass/volume)Ordered By: Lucila Coleman on 03-01-2022 Urea nitrogen [Mass/Vol] 21 mg/dL 9- [facility] Troponin I.cardiac [Mass/vol ume] in Serum or Plasma by High sensitivity methodOrdered By: Lucila Coleman on 03-01-2022 Troponin I.cardiac High sensitivity method [Mass/Vol] 8 pg/mL 0-20 [facility] Prothrombin Time INRon 02-10 INR Coag (PPP) [Relative time] 2.4 {INR} [employer] Other Prothrombin Time INR [employer] Other Prothrombin Time INRon 01-13 INR Coag (PPP) [Relative time] 3.0 {INR} [employer] Other Prothrombin Time INR [facility] [employer] Other Prothrombin Time INRon 12-16 INR Coag (PPP) [Relative time] 2.7 {INR} [employer] Other Prothrombin Time INR [facility] [employer] Other Tobacco Screening.on 022 Adult depression screening assessment No [facility] DO Work Phone: Tobacco use status [facility] b) No [facility] DO Work Phone: Prothrombin Time INRon 11-19 INR Coag (PPP) [Relative time] 3.2 {INR} [employer] Other Prothrombin Time INR [facility] [employer] Other Prothrombin Time INRon 10-20 INR Coag (PPP) [Relative time] 1.7 {INR} [employer] Other Prothrombin Time INR [employer] Other Prothrombin Time INRon 09-22 INR Coag (PPP) [Relative time] 2.7 {INR} [employer] Other Prothrombin Time INR [facility] [employer] Other Prothrombin Time INRon 08-24 INR Coag (PPP) [Relative time] 2.9 {INR} [employer] Other Prothrombin Time INR [facility] [employer] Other Prothrombin Time INRon 07-22 INR Coag (PPP) [Relative time] 1.6 {INR} [employer] Other Prothrombin Time INR [facility] [employer] Other Prothrombin Time INRon 07-15 INR Coag (PPP) [Relative time] 3.4 {INR} [facility] [employer] Other Prothrombin Time INR [facility] [employer] Other Prothrombin Time INRon 06-24 INR Coag (PPP) [Relative time] 3.5 {INR} [facility] [employer] Other Prothrombin Time INR [facility] [employer] Other Vital Signs Date Time Vital Sign Value Performing Clinician Facility 09-14-2023 21:10-0500 Diastolic blood pressure 82 mm[Hg] MD Gladys Garcia Work Phone: [facility] 09-14-2023 21:10-0500 Systolic blood pressure 168 mm[Hg] MD lGadys Garcia Work Phone: [facility] 09-14-2023 20:17-0500 Heart rate 103 /min MD Gladys Garcia Work Phone: [facility] 09-14-2023 20:15-0500 Respiratory rate 20 /min MD Gladys Garcia Work Phone: [facility] 09-14-2023 20:15-0500 SaO2% (BldA) [Mass fraction] 92 % MD Gladys Garcia Work Phone: [facility] 09-14-2023 19:47-0500 Body height 187.96 cm MD Gladys Garcia Work Phone: [facility] 09-14-2023 19:47-0500 Body temperature 98.6 [degF] MD Gladys Garcia Work Phone: [facility] 09-14-2023 19:47-0500 Body weight 138.9 kg MD Gladys Garcia Work Phone: [facility] 08-31-2023 16:04-0500 Body temperature 97.7 [degF] Lior Villeda MD Work Phone: [facility] 08-31-2023 16:04-0500 Diastolic blood pressure 63 mm[Hg] Lior Villeda MD Work Phone: [facility] 08-31-2023 16:04-0500 Heart rate 88 /min Lior Villeda MD Work Phone: [facility] 08-31-2023 16:04-0500 SaO2% (BldA) [Mass fraction] 91 % Lior Villeda MD Work Phone: [facility] 08-31-2023 16:04-0500 Systolic blood pressure 113 mm[Hg] Lior Villeda MD Work Phone: [facility] 08-31-2023 11:37-0500 Respiratory rate 20 /min Lior Villeda MD Work Phone: [facility] 08-29-2023 06:00-0500 Body height 188 cm Lior Villeda MD Work Phone: [facility] 08-29-2023 06:00-0500 Body mass index (BMI) [Ratio] 41.33 kg/m2 Lior Villeda MD Work Phone: [facility] 08-29-2023 06:00-0500 Body weight 146 kg Lior Villeda MD Work Phone: [facility] 07-12-2023 10:17-0400 Body height 188 cm Angel Griggs MD Work Phone: [facility] 07-12-2023 10:17-0400 Body mass index (BMI) [Ratio] 39.03 kg/m2 Angel Griggs MD Work Phone: [facility] 07-12-2023 10:17-0400 Body weight 137.89 kg Angel Griggs MD Work Phone: [facility] 07-12-2023 10:17-0400 Diastolic blood pressure 82 mm[Hg] Angel Griggs MD Work Phone: [facility] 07-12-2023 10:17-0400 Heart rate 83 /min Angel Griggs MD Work Phone: [facility] 07-12-2023 10:17-0400 Systolic blood pressure 108 mm[Hg] Angel Griggs MD Work Phone: [facility] 06-30-2023 07:28-0400 Body temperature 97.5 [degF] Lior Villeda MD Work Phone: [facility] 06-30-2023 07:28-0400 Diastolic blood pressure 83 mm[Hg] Lior Villeda MD Work Phone: [facility] 06-30-2023 07:28-0400 Heart rate 81 /min Lior Villeda MD Work Phone: [facility] 06-30-2023 07:28-0400 SaO2% (BldA) [Mass fraction] 90 % Lior Villeda MD Work Phone: [facility] 06-30-2023 07:28-0400 Systolic blood pressure 136 mm[Hg] Lior Villeda MD Work Phone: [facility] 06-30-2023 03:15-0400 Respiratory rate 18 /min Lior Villeda MD Work Phone: [facility] 06-29-2023 13:00-0400 Body height 188 cm Lior Villeda MD Work Phone: [facility] 06-29-2023 13:00-0400 Body mass index (BMI) [Ratio] 38.44 kg/m2 Lior Villeda MD Work Phone: [facility] 06-29-2023 13:00-0400 Body weight 135.8 kg Lior Villeda MD Work Phone: [facility] 05-24-2023 14:10-0400 Heart rate 101 /min Toby A Naderer Work Phone: AV-Dlglzsmwxe-Wwif a Work Phone: 05-24-2023 14:04-0400 Body height 190.5 cm Toby A Naderer Work Phone: MG-Yvnyqetppx-Rpxy a Work Phone: 05-24-2023 14:04-0400 Body mass index (BMI) [Ratio] 38.62 kg/m2 Toby A Naderer Work Phone: DC-Wlgelegwcb-Pycs a Work Phone: 05-24-2023 14:04-0400 Body surface area Derived from formula 2.64 m2 Toby A Naderer Work Phone: AC-Fsuhpmznvt-Tkhb a Work Phone: 05-24-2023 14:04-0400 Body weight 140.16 kg Toby A Naderer Work Phone: QC-Bdypoqiiey-Zeij a Work Phone: 05-24-2023 14:04-0400 Diastolic blood pressure 60 mm[Hg] Toby A Naderer Work Phone: WB-Bzxalucogu-Tqjg a Work Phone: 05-24-2023 14:04-0400 SaO2% (BldA) [Mass fraction] 97 % Toby A Naderer Work Phone: OJ-Lxevmukkkt-Reun a Work Phone: 05-24-2023 14:04-0400 Systolic blood pressure 108 mm[Hg] Toby Cooper Naderer Work Phone: PS-Smuahincwd-Ryhq a Work Phone: 05-17-2023 09:40-0400 Diastolic blood pressure 86 mm[Hg] Toby Cooper Naderer Work Phone: PL-Bqqobgfqxq-Wpnp a Work Phone: 05-17-2023 09:40-0400 Diastolic blood pressure 56 mm[Hg] Toby Cooper Naderer Work Phone: RX-Kqfwtklwpd-Yhof a Work Phone: 05-17-2023 09:40-0400 Systolic blood pressure 124 mm[Hg] Toby Cooper Naderer Work Phone: WP-Dsjdfmldqp-Acxx a Work Phone: 05-17-2023 09:40-0400 Systolic blood pressure 90 mm[Hg] Toby Cooper Naderer Work Phone: MN-Gepssffcjx-Vwad a Work Phone: 05-17-2023 09:40-0400 90 1 Toby A Naderer Work Phone: BS-Miryofzfat-Ilhw a Work Phone: Comment on above: [email or web address] 05-17-2023 09:40-0400 91 1 Toby A Naderer Work Phone: GQ-Sfnxbtkomq-Silf a Work Phone: Comment on above: [employer] 05-17-2023 09:39-0400 Body height 190.5 cm Toby Cooper Naderer Work Phone: UF-Gopifdtzxn-Mogq a Work Phone: 05-17-2023 09:39-0400 Body mass index (BMI) [Ratio] 37.62 kg/m2 Toby Cooper Naderer Work Phone: AM-Ylkkdlgpjp-Zciq a Work Phone: 05-17-2023 09:39-0400 Body surface area Derived from formula 2.61 m2 Toby Cooper Naderer Work Phone: GY-Krtvcadxaq-Qxoc a Work Phone: 05-17-2023 09:39-0400 Body weight 136.53 kg Toby Cooper Naderer Work Phone: XA-Jyqecudqcg-Uatk a Work Phone: 05-17-2023 09:39-0400 Diastolic blood pressure 86 mm[Hg] Toby Cooper Naderer Work Phone: BM-Gxljdmhvmt-Pbxm a Work Phone: 05-17-2023 09:39-0400 Heart rate 91 /min Toby Cooper Naderer Work Phone: PK-Jksolggvqm-Khmq a Work Phone: 05-17-2023 09:39-0400 Systolic blood pressure 124 mm[Hg] Toby Cooper Naderer Work Phone: HO-Wdlcqkdbxl-Nwnu a Work Phone: 04-04-2023 18:38-0400 Body temperature 98.2 [degF] MD Gladys Garcia Work Phone: [facility] 04-04-2023 18:38-0400 Diastolic blood pressure 62 mm[Hg] MD Gladys Garcia Work Phone: [facility] 04-04-2023 18:38-0400 Heart rate 67 /min MD Gladys Garcia Work Phone: [facility] 04-04-2023 18:38-0400 Respiratory rate 20 /min MD Gladys Garcia Work Phone: [facility] 04-04-2023 18:38-0400 SaO2% (BldA) [Mass fraction] 98 % MD Gladys Garcia Work Phone: [facility] 04-04-2023 18:38-0400 Systolic blood pressure 112 mm[Hg] MD Gladys Garcia Work Phone: [facility] 04-04-2023 12:57-0400 Body height 187.96 cm MD Gladys Garcia Work Phone: [facility] 04-04-2023 06:00-0400 Body weight 131.5 kg MD Gladys Garcia Work Phone: [facility] 04-03-2023 00:00-0400 45 1 Gladys Garcia Work Phone: [facility] 250 DO Work Phone: Comment on above: [email or web address] 04-02-2023 12:30-0400 Diastolic blood pressure 73 mm[Hg] MD Gladys Garcia Work Phone: [facility] 04-02-2023 12:30-0400 Heart rate 86 /min MD Gladys Garcia Work Phone: [facility] 04-02-2023 12:30-0400 Respiratory rate 18 /min MD Gladys Garcia Work Phone: [facility] 04-02-2023 12:30-0400 SaO2% (BldA) [Mass fraction] 97 % MD Gladys Garcia Work Phone: [facility] 04-02-2023 12:30-0400 Systolic blood pressure 116 mm[Hg] MD Gladys Garcia Work Phone: [facility] 04-02-2023 09:46-0400 Body temperature 98.1 [degF] MD Gladys Garcia Work Phone: [facility] 04-02-2023 09:40-0400 Body height 187.96 cm MD Gladys Garcia Work Phone: [facility] 04-02-2023 09:40-0400 Body weight 132.9 kg MD Gladys Garcia Work Phone: [facility] 01-11-2023 09:56-0400 Diastolic blood pressure 78 mm[Hg] Gladys Garcia Work Phone: [facility] 250 DO Work Phone: 01-11-2023 09:56-0400 Diastolic blood pressure 76 mm[Hg] Gladys Garcia Work Phone: [facility] 250 DO Work Phone: 01-11-2023 09:56-0400 Systolic blood pressure 110 mm[Hg] Gladys Garcia Work Phone: [facility] 250 DO Work Phone: 01-11-2023 09:56-0400 Systolic blood pressure 106 mm[Hg] Gladys Garcia Work Phone: [facility] 250 DO Work Phone: 01-11-2023 09:50-0400 Heart rate 87 /min Gladys Garcia Work Phone: [facility] 250 DO Work Phone: 01-11-2023 09:48-0400 Body height 190.5 cm Gladys Garcia Work Phone: [facility] 250 DO Work Phone: 01-11-2023 09:48-0400 Body mass index (BMI) [Ratio] 37 kg/m2 Gladys Garcia Work Phone: [facility] 250 DO Work Phone: 01-11-2023 09:48-0400 Body surface area Derived from formula 2.59 m2 Gladys Garcia Work Phone: [facility] 250 DO Work Phone: 01-11-2023 09:48-0400 Body weight 134.27 kg Gladys Garcia Work Phone: [facility] 250 DO Work Phone: 12-15-2022 15:38-0400 Body temperature 97.7 [degF] MD Gladys Garcia Work Phone: [facility] 12-15-2022 15:38-0400 Diastolic blood pressure 87 mm[Hg] MD Gladys Garcia Work Phone: [facility] 12-15-2022 15:38-0400 Heart rate 91 /min MD Gladys Garcia Work Phone: [facility] 12-15-2022 15:38-0400 Respiratory rate 18 /min MD Gladys Garcia Work Phone: [facility] 12-15-2022 15:38-0400 SaO2% (BldA) [Mass fraction] 98 % MD Gladys Garcia Work Phone: [facility] 12-15-2022 15:38-0400 Systolic blood pressure 139 mm[Hg] MD Gladys Garcia Work Phone: [facility] 12-15-2022 15:34-0400 Body height 187.96 cm MD Gladys Garcia Work Phone: [facility] 12-15-2022 15:34-0400 Body weight 135.4 kg MD Gladys Garcia Work Phone: [facility] 07-17-2022 14:47-0400 59.2 1 Gladys Garcia Work Phone: [facility] 250 DO Work Phone: Comment on above: [facility] 07-12-2022 15:43-0400 Body height 190.5 cm Gladys Garcia Work Phone: [facility] 250 DO Work Phone: 07-12-2022 15:43-0400 Body mass index (BMI) [Ratio] 38 kg/m2 Gladys Garcia Work Phone: [facility] 250 DO Work Phone: 07-12-2022 15:43-0400 Body surface area Derived from formula 2.62 m2 Gladys Garcia Work Phone: [facility] 250 DO Work Phone: 07-12-2022 15:43-0400 Body weight 137.89 kg Gladys Garcia Work Phone: [facility] 250 DO Work Phone: 07-12-2022 15:43-0400 Diastolic blood pressure 78 mm[Hg] Gladys Garcia Work Phone: [facility] 250 DO Work Phone: 07-12-2022 15:43-0400 Heart rate 94 /min Gladys Garcia Work Phone: [facility] 250 DO Work Phone: 07-12-2022 15:43-0400 Systolic blood pressure 102 mm[Hg] Gladys Garcia Work Phone: [facility] 250 DO Work Phone: 03-01-2022 21:27-0400 Diastolic blood pressure 90 mm[Hg] MD Gladys Garcia Work Phone: [facility] 03-01-2022 21:27-0400 Heart rate 84 /min MD Gladys Garcia Work Phone: [facility] 03-01-2022 21:27-0400 Respiratory rate 17 /min MD Gladys Garcia Work Phone: [facility] 03-01-2022 21:27-0400 SaO2% (BldA) [Mass fraction] 93 % MD Gladys Garcia Work Phone: [facility] 03-01-2022 21:27-0400 Systolic blood pressure 141 mm[Hg] MD Gladys Garcia Work Phone: [facility] 03-01-2022 19:14-0400 Body height 187.96 cm MD Gladys Garcia Work Phone: [facility] 03-01-2022 19:14-0400 Body mass index (BMI) [Ratio] 38.5 kg/m2 MD Gladys Garcia Work Phone: [facility] 03-01-2022 19:14-0400 Body temperature 97.8 [degF] MD Gladys Garcia Work Phone: [facility] 03-01-2022 19:14-0400 Body weight 136.07 kg MD Gladys Garcia Work Phone: [facility] 12-16-2021 09:59-0400 Body height 190.5 cm Gladys Garcia Work Phone: [facility] 250 DO Work Phone: 12-16-2021 09:59-0400 Body mass index (BMI) [Ratio] 38.1 kg/m2 Gladys Garcia Work Phone: [facility] 250 DO Work Phone: 12-16-2021 09:59-0400 Body surface area Derived from formula 2.62 m2 Gladys Garcia Work Phone: [facility] 250 DO Work Phone: 12-16-2021 09:59-0400 Body weight 138.26 kg Gladys Garcia Work Phone: [facility] 250 DO Work Phone: 12-16-2021 09:59-0400 Diastolic blood pressure 60 mm[Hg] Gladys Garcia Work Phone: [facility] 250 DO Work Phone: 12-16-2021 09:59-0400 Heart rate 100 /min Gladys Garcia Work Phone: [facility] 250 DO Work Phone: 12-16-2021 09:59-0400 Systolic blood pressure 102 mm[Hg] Gladys Garcia Work Phone: [facility] 250 DO Work Phone: Encounters Encounter Date Encounter Type Care Provider Facility Start: 09-26-2023 End: 09-26-2023 ambulatory TOBY AMADOR Not Available Start: 09-21-2023 End: 09-22-2023 ambulatory [facility] Start: 09-21-2023 End: 09-21-2023 Subsequent hospital visit by physician Osito Briseno [facility] Comment on above: Arrived Start: 09-14-2023 End: 09-14-2023 Emergency department patient visit José Luis Coleman Facility:[facility] Start: 09-14-2023 End: 09-14-2023 Emergency department patient visit MD Gladys Garcia Work Phone: [facility] Work Phone: Start: 09-14-2023 End: 09-14-2023 ambulatory MARIELENA RESTREPO Not Available Start: 09-01-2023 End: 09-01-2023 ambulatory Farnaz Collazo Other [facility] [employer] Other Start: 09-01-2023 Telephone encounter Farnaz Collazo [facility] Start: 08-29-2023 End: 08-31-2023 ambulatory LIOR [facility] Start: 08-29-2023 End: 08-31-2023 Evaluation and management of inpatient Lior Villeda MD Work Phone: [facility] 8 Comment on above: Atrial fibrillation (CMS/HCC) (Primary Dx); Ischemic cardiomyopathy Start: 08-22-2023 ambulatory Gladys Garcia Facility:[facility] Start: 08-22-2023 Registered Recurring MD Gladys lemons Work Phone: [facility] Work Phone: Start: 08-09-2023 End: 08-10-2023 ambulatory TOBY RAMONITA [facility] Start: 08-09-2023 End: 08-09-2023 Subsequent hospital visit by physician Santo Au [facility] 3 Comment on above: Presence of automati c cardioverter/defibrillator (AICD); Ventricular tachycardia, nonsustained (CMS/HCC) Start: 08-03-2023 ([facility] R A/c) [facility] Re peat A/C Jama Lopez [facility] Start: 08-03-2023 End: 08-03-2023 ambulatory Jama Lopez Other [employer] Other Start: 07-18-2023 End: 07-19-2023 ambulatory [facility] Start: 07-18-2023 End: 07-18-2023 Subsequent hospital visit by physician Osito Sharma 3 Device Remote [facility] 3 Comment on above: Presence of automati c cardioverter/defibrillator (AICD); Ventricular tachycardia, nonsustained (CMS/HCC) Start: 07-13-2023 End: 07-13-2023 ambulatory [facility] Start: 07-12-2023 End: 07-12-2023 ambulatory ANGEL [facility] Ambulatory Start: 07-12-2023 End: 07-12-2023 Office outpatient visit 25 minutes Angel Griggs MD Work Phone: [facility] Comment on above: Paroxysmal atrial fi brillation (CMS/HCC); 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; History of PTCA; History of GA (myocardial infarction); Ischemic cardiomyopathy; Ventricular tachycardia, nonsustained (CMS/HCC); S/P implantation of automatic cardioverter/defibrillator (AICD); Essential hypertension; Hyperlipidemia, unspecified hyperlipidemia type; Orthostatic hypotension Start: 07-12-2023 End: 07-12-2023 Subsequent hospital visit by physician Osito [facility] 3 Device Remote [facility] 3 Comment on above: Primary cardiomyopat hy (CMS/HCC) Start: 07-08-2023 End: 07-09-2023 ambulatory [place] Juanita [facility] Ambulatory Start: 07-07-2023 End: 07-08-2023 ambulatory TOBY TEJADA [facility] Ambulatory Start: 07-06-2023 ([facility] R A/c) [facility] Re peat A/C Farnaz Collazo [facility] Start: 07-06-2023 End: 07-06-2023 ambulatory Farnaz Collazo Other [employer] Other Start: 06-30-2023 End: 06-30-2023 ambulatory Farnaz Collazo Other [employer] Other Start: 06-30-2023 Telephone encounter Farnaz wheeler [facility] Start: 06-29-2023 End: 06-30-2023 Subsequent hospital visit by physician Lior Villeda MD Work Phone: [facility] 8 Comment on above: S/P implantation of automatic cardioverter/defibrillator (AICD) (Primary Dx); Ischemic cardiomyopathy; Paroxysmal atrial fibrillation (CMS/HCC); Ventricular tachycardia, nonsustained (CMS/HCC) Start: 06-20-2023 ([facility] R A/c) [facility] Re peat A/C Jama Lopez [facility] Start: 06-20-2023 End: 06-20-2023 ambulatory Jama Lopez Other [employer] Other Start: 06-10-2023 End: 06-10-2023 ambulatory Farnaz Collazo Other [employer] Other Start: 09-22-2023 Telephone encounter Farnaz Fitt [facility] Start: 06-06-2023 ([facility] R A/c) [facility] Re peat A/C Jama Lopez [facility] Start: 06-06-2023 End: 06-06-2023 ambulatory Jama Lopez Other [employer] Other Start: 05-25-2023 ([facility] R A/c) [facility] Re peat A/C Jama [facility] Start: 05-25-2023 End: 05-25-2023 ambulatory Jama Lopez Other [employer] Other Start: 05-25-2023 Telephone encounter Farnaz Glasgow [facility] Start: 05-24-2023 Office outpatient ne w 60 minutes Toby Amador Work Phone: [id number] Work Phone: Start: 05-24-[address] Toby Amador Facility:[id number] Start: 05-17-2023 Patient encounter procedure Toby Amador Work Phone: [facility] Work Phone: Start: 05-17-[address] Gladys Garcia Facility: Start: 05-12-2023 ([facility] R A/c) [facility] Re peat A/C Tabitha [facility] Start: 05-12-2023 End: 05-12-2023 ambulatory Tabitha Shaw Other [employer] Other Start: 05-10-2023 Chart Update Gladys Garcia Work Phone: [facility] 250 DO Work Phone: Start: 05-09-2023 ambulatory Angel Griggs Facility :[id number] Start: 05-02-2023 ([facility] R A/c) [facility] Re peat A/C [facility] Start: 05-02-2023 End: 05-02-[address] Gladys Garcia [facility] [employer] Other Start: 04-20-2023 Telephone encounter Gladys Acosta ht Work Phone: [facility] 250 DO Work Phone: Start: 04-18-2023 Rx Renewal Gladys Garcia Work Phone: [facility] 250 DO Work Phone: Start: 04-18-2023 ([facility] R A/c) [facility] Re peat A/C [facility] Start: 04-18-2023 End: 04-18-2023 ambulatory Tabithaángela Shaw Other [facility] [employer] Other Start: 04-06-2023 Telephone encounter Gladys Acosta ht Work Phone: [facility] 250 DO Work Phone: Start: 04-04-[address] Gladys Garcia Facility:[id number] Start: 04-03-[address] Gladys Garcia Facility:[id number] Start: 04-02-2023 End: 04-04-2023 ambulatory Toyeva Yeager Facility:[facility] Start: 04-02-2023 End: 04-04-2023 Evaluation and management of inpatient MD Gladys Garcia Work Phone: [facility] [place] [facility] Work Phone: Start: 04-02-2023 End: 04-04-2023 observation encounter MD Gladys Garcia Work Phone: [facility] Work Phone: Start: 03-14-2023 Registered Recurring MD Gladys lemons Work Phone: [facility] Work Phone: Start: 03-14-2023 ([facility] R A/c) [facility] Re peat A/C Yun Sanner [facility] Start: 03-14-2023 End: 03-14-2023 ambulatory Yun Sanfabian Other [employer] Other Start: 02-16-2023 ([facility] R A/c) [facility] Re peat A/C Tabitha [place] [facility] Start: 02-16-2023 End: 02-16-2023 ambulatory Tabitha [place] Other [employer] Other Start: 01-25-2023 ([facility] R A/c) [facility] Re peat A/C Tabitha [place] [facility] Start: 01-25-2023 End: 01-25-2023 ambulatory Tabitha [place] Other [employer] Other Start: 01-19-2023 End: 01-20-2023 ambulatory GLADYS GARCIA Facility:[facility] Start: 01-13-2023 ([facility] R A/c) [facility] Re peat A/C Tabitha [place] [facility] Start: 01-13-2023 End: 01-13-2023 ambulatory Tabitha Colin Other [employer] Other Start: 01-11-[address] Angel Wrightahim Facility: Start: 01-11-2023 Office outpatient vi sit 25 minutes Gladys Garcia Work Phone: [facility] 250 DO Work Phone: Start: 12-30-2022 ([facility] R A/c) [facility] Re peat A/C Jama Lopez [facility] Start: 12-30-2022 End: 12-30-2022 ambulatory Jama Lopez Other [employer] Other Start: 12-27-2022 Encounter for genera l adult medical examination without abnormal findings DR GLADYS GARCIA . [facility] Start: 12-23-2022 ([facility] R A/c) [facility] Re peat A/C Tabitha Shaw [facility] Start: 12-23-2022 End: 12-24-2022 Encounter for general adult medical examination without abnormal findings DR GLADYS GARCIA . Facility: Start: 12-23-2022 End: 12-24-[address] GLADYS GARCIA . [facility] [employer] Other Start: 12-22-2022 End: 12-22-2022 ambulatory Pineda Steven Facility:[facility] Start: 12-22-2022 End: 12-22-2022 ambulatory MD Gladys Garcia Work Phone: [facility] Work Phone: Start: 12-22-2022 End: 12-22-2022 Departed Referred MD Gladys Garcia Work Phone: [facility] Main [place] Work Phone: Start: 12-22-2022 End: 12-23-2022 ambulatory GLADYS GARCIA Facility:[facility] Start: 12-15-2022 End: 12-15-2022 Emergency department patient visit Gladys Garcia Facility:[facility] Start: 12-15-2022 End: 12-15-2022 Emergency department patient visit MD Gladys Garcia Work Phone: [facility] Work Phone: Start: 12-15-2022 Registered Recurring MD Gladys lemons Work Phone: [facility] Work Phone: Start: 12-15-2022 ([facility] R A/c) [facility] Re peat A/C Jama Lopez [facility] Start: 12-15-2022 End: 12-15-2022 ambulatory Farnaz Fitt Other [employer] Other Start: 12-15-2022 Telephone encounter Farnaz wheeler [facility] Start: 12-08-2022 Rx Renewal Gladys Garcia Work Phone: [facility] 250 DO Work Phone: Start: 12-02-2022 ([facility] R A/c) [facility] Re peat A/C Yun Sanfabian [facility] Start: 12-02-2022 End: 12-02-2022 ambulatory GLADYS GARCIA [facility] [employer] Other Start: 11-01-2022 ([facility] R A/c) [facility] Re peat A/C Tabitha [place] [facility] Start: 11-01-2022 End: 11-01-2022 ambulatory Tabitha Colin Other [employer] Other Start: 10-04-2022 ([facility] R A/c) [facility] Re peat A/C Ugomatt Connelly [facility] Start: 10-04-2022 End: 10-04-2022 ambulatory Ugo Alysae Other [employer] Other Start: 09-27-2022 End: 09-27-2022 ambulatory Farnaz Collazo Other [employer] Other Start: 09-27-2022 Telephone encounter Farnaz wheeler [facility] Start: 08-05-2022 Patient encounter procedure Gladys Garcia Work Phone: [facility] 250 DO Work Phone: Start: 07-26-2022 Telephone encounter Gladys Acosta Work Phone: [facility] 250 DO Work Phone: Start: 07-26-2022 ([facility] R A/c) [facility] Re peat A/C Farnaz Fitt [facility] Start: 07-26-2022 End: 07-26-2022 ambulatory Farnaz Fitt Other [employer] Other Start: 07-17-2022 End: 07-18-[address] ANGEL GRIGGS Facility: Start: 07-12-2022 Office outpatient vi sit 40 minutes Gladys Garcia [facility] Work Phone: Start: 06-22-2022 Rx Renewal Gladys Garcia [facility]: [facility] Work Phone: Start: 06-21-2022 ([facility] R A/c) [facility] Re peat A/C Farnaz Fitt [facility] Start: 06-21-2022 End: 06-21-2022 ambulatory Farnaz Fitt Other [employer] Other Start: 06-21-2022 Telephone encounter Farnaz Cervantest [facility] Start: 05-17-2022 ([facility] R A/c) [facility] Re peat A/C Farnaz Fitt [facility] Start: 05-17-2022 End: 05-17-2022 ambulatory Farnaz Fitt Other [employer] Other Start: 05-10-2022 End: 05-10-2022 Departed Referred MD Glayds Garcia Work Phone: [facility] [place] Start: 04-25-[address] GLADYS GARCIA . Facil ity:H1 Start: 04-07-2022 ([facility] R A/c) [facility] Re peat A/C Farnaz Fitt [facility] Start: 04-07-2022 End: 04-07-2022 ambulatory Farnaz Fitt Other [employer] Other Start: 03-24-2022 Rx Renewal Gladys Garcia Work [facility]: [facility] Work Phone: Start: 03-12-2022 End: 03-13-[address] GLADYS GARCIA . Facility: Start: 03-10-2022 ([facility] R A/c) [facility] Re peat A/C Farnaz Fitt [facility] Start: 03-10-2022 End: 03-10-2022 ambulatory Farnaz Fitt Other [employer] Other Start: 03-01-2022 End: 03-01-2022 Emergency department patient visit MD Gladys Garcia Work Phone: [facility] Start: 02-10-2022 ([facility] R A/c) [facility] Re peat A/C Farnaz Fitt [facility] Start: 02-10-2022 End: 02-10-2022 ambulatory Farnaz Fitt Other [employer] Other Start: 01-13-2022 ([facility] R A/c) [facility] Re peat A/C Farnaz Fitt [facility] Start: 01-13-2022 End: 01-13-2022 ambulatory Farnaz Fitt Other [employer] Other Start: 12-16-2021 ([facility] R A/c) [facility] Re peat A/C Farnaz Fitt [facility] Start: 12-16-2021 End: 12-16-2021 ambulatory Farnaz Fitt Other [employer] Other Start: 12-16-2021 Office outpatient vi sit 25 minutes Gladys Garcia Work Phone: [facility] 250 DO Work Phone: Start: 11-19-2021 ([facility] R A/c) [facility] Re peat A/C Farnaz Fitt [facility] Start: 11-19-2021 End: 11-19-2021 ambulatory Farnaz Fitt Other [employer] Other Start: 10-20-2021 ([facility] R A/c) [facility] Re peat A/C Farnaz Fitt [facility] Start: 10-20-2021 End: 10-20-2021 ambulatory Farnaz Fitt Other [employer] Other Start: 09-22-2021 ([facility] R A/c) [facility] Re peat A/C Farnaz Fitt [facility] Start: 09-22-2021 End: 09-22-2021 ambulatory Farnaz Fitt Other [employer] Other Start: 08-24-2021 ([facility] R A/c) [facility] Re peat A/C Farnaz Fitt [facility] Start: 08-24-2021 End: 08-24-2021 ambulatory Farnaz Fitt Other [employer] Other Start: 08-05-2021 End: 08-05-2021 ambulatory Farnaz Fitt Other [employer] Other Start: 08-05-2021 Telephone encounter Farnaz Fitt [facility] Start: 07-22-2021 ([facility] R A/c) [facility] Re peat A/C Farnaz Fitt [facility] Start: 07-22-2021 End: 07-22-2021 ambulatory Farnaz Fitt Other [employer] Other Start: 07-15-2021 ([facility] R A/c) [facility] Re peat A/C Farnaz Fitt [facility] Start: 07-15-2021 Telephone encounter Farnaz wheeler [facility] Start: 06-24-2021 ([facility] R A/c) [facility] Re peat A/C Farnaz Collazo [facility] Procedures Date Procedure Procedure Detail Performing Clinician Start: 09-21-2023 Ecg routine ecg w/le ast 12 lds trcg only w/o i&r Lior Villeda MD Work Phone: Start: 09-14-2023 Plain chest X-ray MD Sharif Garcia Work Phone: Start: 08-31-2023 DISCHARGE PATIENT NATHAN AU Start: 08-31-2023 Glucose [Mass/volume ] in Serum or Plasma NATHAN FUENTESICONE Start: 08-31-2023 Glucose quantitative blood xcpt reagent strip Lior Villeda MD Work Phone: Start: 08-31-2023 INITIATE OBSERVATION STATUS NATHAN AU Start: 08-31-2023 Glucose [Mass/volume ] in Serum or Plasma NATHAN FUENTESICONE Start: 08-31-2023 Glucose quantitative blood xcpt reagent strip Lior Villeda MD Work Phone: Start: 08-31-2023 Glucose [Mass/volume ] in Serum or Plasma NATHAN MEDARDOICONCale Start: 08-31-2023 Glucose quantitative blood xcpt reagent strip Lior Villeda MD Work Phone: Start: 08-30-2023 Glucose [Mass/volume ] in Serum or Plasma NATHAN YAZAN Start: 08-30-2023 Glucose quantitative blood xcpt reagent strip Lior Villeda MD Work Phone: Start: 08-30-2023 Glucose [Mass/volume ] in Serum or Plasma NATHAN MEDARDOICONE Start: 08-30-2023 XR CHEST 1 VIEW NATHAN Styles AMICONCale Start: 08-30-2023 Glucose quantitative blood xcpt reagent strip Lior Villeda MD Work Phone: Start: 08-30-2023 INSERT URETHRAL CATHETER NATHAN MEDARDOICONCale Start: 08-30-2023 Glucose [Mass/volume ] in Serum or Plasma NATAHN MEDARDOICONE Start: 08-30-2023 Radiologic exam ches t single view Nathan Au DO Work Phone: Start: 08-30-2023 ECG 12-LEAD ANTHAN STOVER Start: 08-30-2023 Glucose quantitative blood xcpt reagent strip Lior Villeda MD Work Phone: Start: 08-30-2023 Ecg routine ecg w/le ast 12 lds trcg only w/o i&r Lior Villeda MD Work Phone: Start: 08-30-2023 ECG 12-LEAD NATHAN STOVER Start: 08-30-2023 INITIATE EXTENDED RECOVERY NATHAN AU Start: 08-30-2023 Glucose [Mass/volume ] in Serum or Plasma NATHAN AU Start: 08-30-2023 Glucose quantitative blood xcpt reagent strip Lior Villeda MD Work Phone: Start: 08-29-2023 IP CONSULT TO RESPIR ATORY CARE NATHAN AU Start: 08-29-2023 OCONNOR CATHETER - DISCONTINUE NATHAN AU Start: 08-29-2023 REASON FOR NO DVT PROPHYLAXIS - HOSPITAL ADMISSION - MEDICATIONS NATHAN AU Start: 08-29-2023 ECG 12-LEAD NATHAN STOVER Start: 08-29-2023 HEIGHT AND WEIGHT NATHAN AU Start: 08-29-2023 TELEMETRY MONITORING SHANAE AU Start: 08-29-2023 Glucose quantitative blood xcpt reagent strip Lior Villeda MD Work Phone: Start: 08-29-2023 FULL CODE NATHAN STOVER Start: 08-29-2023 MEASURE HEIGHT NATHAN LOPEZ Start: 08-29-2023 REASON FOR NO DVT PROPHYLAXIS - HOSPITAL ADMISSION - MEDICATIONS NATHAN AU Start: 08-29-2023 WEIGH PATIENT NATHAN CHOWDHURY Start: 08-29-2023 ADMIT TO INPATIENT RUPINDER AU Start: 08-29-2023 POSTPROCEDURE LEVEL OF CARE CHANGE NATHAN AU Start: 08-29-2023 DISCHARGE INSTRUCTIONS NATHAN AU Start: 08-29-2023 FOLLOW UP WITH PROVIDER NATHAN AU Start: 08-29-2023 ADULT DISCHARGE DIET SHANAE AU Start: 08-29-2023 DISCHARGE ACTIVITY RUPINDER AU Start: 08-29-2023 NOTIFY PROVIDER (DO NOT PROMPT FOR PARAMETERS) NATHAN AU Start: 08-29-2023 ELECTROPHYSIOLOGY PROCEDURE NATHAN AU Start: 08-29-2023 Electrophysiology study Lior Villeda MD Work Phone: Start: 08-29-2023 TRANSESOPHAGEAL ECHO (CLEO) NATHAN AU Start: 08-29-2023 Echo transesophag r- t 2d w/prb img acquisj i&r Lior Villeda MD Work Phone: Start: 08-29-2023 PROTIME-INR NATHAN STOVER Start: 08-29-2023 Glucose [Mass/volume ] in Serum or Plasma NATHAN AU Start: 08-29-2023 End: 08-29-2023 Prothrombin time Lior Villeda MD Work Phone: Start: 08-09-2023 Basic metabolic 2000 panel - Serum or Plasma TOBY AMADOR Start: 08-09-2023 CBC panel - Blood by Automated count TOBY KRISHNAR Start: 08-09-2023 PROTIME-INR TOBY [facility] Start: 08-09-2023 CARDIAC DEVICE CHECK - IN [facility] Start: 07-20-2023 CARDIAC DEVICE CHECK CHECK - REMOTE [facility] Start: 07-14-2023 CARDIAC DEVICE CHECK CHECK - REMOTE [facility] Start: 07-12-2023 ECG 12-LEAD TOBY [facility] Start: 07-12-2023 Ecg routine ecg w/le ast 12 lds w/i&r Angel Griggs MD Work Phone: Start: 06-30-2023 Glucose quantitative blood xcpt reagent strip Lior Villeda MD Work Phone: Start: 06-30-2023 LAVENDER TOP Lior avery MD Work Phone: Start: 06-30-2023 SST TOP Lior avery MD Work Phone: Start: 06-30-2023 Radiologic exam ches t 2 views Lorene Vernon FISH CONSERVATIONIST-ENGINEER SYSTEMS Work Phone: Start: 06-30-2023 Prothrombin time Nani Grant Janeen FISH CONSERVATIONIST[employer] Work Phone: Start: 06-29-2023 Glucose quantitative blood xcpt reagent strip Lior Villeda MD Work Phone: Start: 06-29-2023 Electrophysiology study Lior Villeda MD Work Phone: Start: 06-29-2023 End: 06-29-2023 Prothrombin time Lorene Juanita Vernon FISH CONSERVATIONIST[employer]ER [employer] Work Phone: Start: 06-12-2023 History of percutane ous transluminal coronary angioplasty History of PTCA Lior Villeda MD Work Phone: Start: 04-03-2023 Doppler ultrasonogra phy of bilateral carotid arteries MD Gladys Garcia Work Phone: Start: 04-02-2023 Plain chest X-ray MD Sharif Garcia Work Phone: Start: 12-23-[address] ANGEL GRIGGS Comment on above: Performed By: #### C RP, PREALB #### [facility] [address] [place] [address] Dr. Rayshawn Clark Start: 03-01-2022 Plain chest X-ray MD Sharif Garcia Work Phone: Aerobic microbial culture MD Gladys Garcia Work Phone: Amputation of toe Gladys Acosta Work Phone: Cardiac catheterization Gladys Garcia Work Phone: Colonoscopy Gladys Garcia Work Phone: Comment on above: [id number]; History of percutane ous transluminal coronary angioplasty History of PTCA Gladys Garcia Work Phone: History of percutane ous transluminal coronary angioplasty History of PTCA Angel Griggs MD Work Phone: History of percutane ous transluminal coronary angioplasty History of PTCA 1 MD Gladys Garcia Work Phone: Procedure on neck Gladys apple Work Phone: Comment on above: disectomy; Plan of Treatment Date Care Activity Detail Author Start: 10-18-2023 End: 10-18-2023 Patient encounter procedure 10/18/2023 9:30 AM EST Office Visit [facility] [address] [place] [address] Angel Griggs MD [address] [place] [address] [facility] Start: 10-13-2023 End: 10-13-2023 Patient encounter procedure 10/13/2023 10:30 AM EST Office Visit [facility] [address] [place] [address] Lior Villeda MD [address] [facility] [address] [place] [address] [facility] Start: 08-29-2023 ABLATION, Provider: PMC EP LAB 3,MG CARD, Status: Pen, Time: 7:30 AM ABLATION, Provider: PMC EP LAB 3,MG CARD, Status: Pen, Time: 7:30 AM [facility] Work Phone: Start: 08-29-2023 End: 08-29-2023 Admission to same day surgery center [facility] Comment on above: Ablation A-Fib Persistant Start: 08-29-2023 Subsequent hospital visit by physician [facility] Comment on above: Atrial fibrillation (CMS/HCC) Start: 08-20-2023 DTaP/Tdap/Td Vaccines (2 - Td or Tdap) DTaP/Tdap/Td Vaccines (2 - Td or Tdap) [facility] Start: 07-21-2023 Glaucoma screening Diabetes: Retinopathy Screening [facility] Start: 07-12-2023 FUV, Provider: Angel Griggs, Status: Pen, Time: 9:40 AM FUV, Provider: Angel Griggs, Status: Pen, Time: 9:40 AM [facility] [address] DO Work Phone: Start: 07-12-2023 End: 07-12-2023 Patient encounter procedure 07/12/2023 9:40 AM EDT Office Visit [facility] [address] [place] [address] Angel Griggs MD [address] [place] [address] [facility] Start: 07-10-2023 Orders Only 07/10/2023 Orders Only [facility] [address] [place] [address] Scanning, Generic Provider [facility] Start: 07-07-2023 End: 07-07-2023 Clinical Support 07/07/2023 1:00 PM EDT Clinical Support [facility] 3 [address] [facility] [address] [place] [id number] [facility] 3 Start: 05-30-2023 NPVRFRL, Provider: Majo Jimenez, Status: Pen, Time: 10:20 AM NPVRFRL, Provider: Majo Jimenez, Status: Pen, Time: 10:20 AM [facility] Work Phone: Start: 05-20-2023 Influenza vaccination Influenza Vaccine (#1) [facility] Start: 05-17-2023 EKG, Provider: ASHA DECKER REWORK MACHINE OPERATOR 1,[id number], Status: Pen, Time: 9:30 AM EKG, Provider: ASHA DECKER REWORK MACHINE OPERATOR 1,[id number], Status: Pen, Time: 9:30 AM [facility] 250 DO Work Phone: Start: 05-05-2023 REST ONLY, Provider: PETERSON HHVI NUCLEAR 01,[id number], Status: Pen, Time: 10:30 AM REST ONLY, Provider: PETERSON HHVI NUCLEAR 01,[id number], Status: Pen, Time: 10:30 AM [facility] 250 DO Work Phone: Start: 05-04-2023 REST ONLY, Provider: PETERSON TITUSI NUCLEAR 01,[id number], Status: Pen, Time: 10:30 AM REST ONLY, Provider: PETERSON HHVI NUCLEAR 01,[id number], Status: Pen, Time: 10:30 AM [facility] 250 DO Work Phone: Start: 05-02-2023 STRESSNUC2, Provider: PETERSON TITUSI NUCLEAR 01,[id number], Status: Pen, Time: 11:30 AM STRESSNUC2, Provider: PETERSON TITUSI NUCLEAR 01,[id number], Status: Pen, Time: 11:30 AM [facility] 250 DO Work Phone: Start: 04-12-2023 [facility] Start: 04-11-2023 [facility] Start: 04-10-2023 [facility] Start: 04-09-2023 [facility] Start: 04-08-2023 [facility] Start: 04-07-2023 Blood chemistry [facility] Start: 04-07-2023 [facility] Start: 04-06-2023 Blood chemistry [facility] Start: 04-06-2023 [facility] Start: 04-05-2023 Blood chemistry [facility] Start: 04-05-2023 [facility] Start: 04-04-2023 [facility] Start: 04-02-2023 Referral to vp genetic [facility] Start: 04-02-2023 Hospital admission [facility] Start: 04-02-2023 End: 04-02-2023 [facility] Start: 01-11-2023 FUV, Provider: Angel Griggs, Status: Pen, Time: 9:30 AM FUV, Provider: Angel Griggs, Status: Pen, Time: 9:30 AM [facility] 250 DO Work Phone: Start: 12-22-2022 Aerobic Culture Aerobic Culture [facility] Start: 12-22-2022 Anaerobic Culture Anaerobic Culture [facility] Start: 12-22-2022 Microscopic observation [Identifier] in Unspecified specimen by Gram stain [facility] Start: 08-05-2022 EVENT ROSELIA, Provider: ASHA DECKER REWORK MACHINE OPERATOR 1,[id number], Status: Pen, Time: 3:00 PM EVENT ROSELIA, Provider: ASHA DECKER REWORK MACHINE OPERATOR 1,[id number], Status: Pen, Time: 3:00 PM [facility] 250 DO Work Phone: Start: 07-12-2022 FUV, Provider: Angel Griggs, Status: Pen, Time: 3:40 PM FUV, Provider: Angel Griggs, Status: Pen, Time: 3:40 PM -[facility] 250 DO Work Phone: Start: 06-29-2022 FUV, Provider: Angel Griggs, Status: Pen, Time: 10:20 AM FUV, Provider: Angel Griggs, Status: Pen, Time: 10:20 AM -[facility] 250 DO Work Phone: Start: 05-17-2022 Registered Recurring Registered Recurring [facility] Start: 01-23-2021 COVID-19 Vaccine (3 - Booster for Nelson series) COVID-19 Vaccine (3 - Booster for Nelson series) [facility] Start: 2013 Zoster Vaccines (1 of 2) Zoster Vaccines (1 of 2) [facility] Start: 1982 Urine screening for protein Diabetes: Urine Protein Screening [facility] Start: 1981 Hepatitis C screening Hepatitis C Screening [facility] Start: 1973 Diabetic foot examination Diabetes: Foot Exam [facility] Start: 1973 Glaucoma screening Diabetes: Retinopathy Screening [facility] Start: 1969 Pneumococcal Vaccine: Pediatrics (0 to 5 Years) and At-Risk Patients (6 to 64 Years) (1 - PCV) Pneumococcal Vaccine: Pediatrics (0 to 5 Years) and At-Risk Patients (6 to 64 Years) (1 - PCV) [facility] Start: 1964 MMR Vaccines (1 of 1 - Standard series) MMR Vaccines (1 of 1 - Standard series) [facility] Start: 1963 Hemoglobin A1c measurement Diabetes: Hemoglobin A1C [facility] Start: 1963 HIV screening HIV Screening [facility] Start: 1963 Lipid panel Lipid Panel [facility] Start: 1963 Screening for malignant neoplasm of colon [facility] Start: 1963 Thyroid stimulating hormone measurement TSH Level [facility] Start: 1963 Yearly Adult Physical Yearly Adult Physical [facility] Bacteria identified in Unspecified specimen by Aerobe culture [facility] Bacteria identified in Unspecified specimen by Anaerobe culture [facility] End: 08-09-2023 Cardiac device check - In Clinic [facility] Service Area Work Phone: Comment on above: Once for 1 Occurrences starting 08/09/20 until 08/09/2023 End: 07-13-2023 Cardiac device check - Remote [facility] Work Phone: Comment on above: Once for 1 Occurrences starting 07/13/20 until 07/13/2023 End: 07-18-2023 Cardiac Device Check - Remote [facility] Work Phone: Comment on above: Once for 1 Occurrences starting 07/18/20 until 07/18/2023 End: 08-29-2023 Continuous Pulse oximetry, In Phase 1 [facility] Service Area Work Phone: Comment on above: Continuous until discontinued starting 1 10/30/2022 ECG 12 Lead ECG 12 Lead ECG Routine As needed until discontinued starting 06/29/2023 [facility] Work Phone: Comment on above: As needed until discontinued starting ECG 12 Lead ECG 12 Lead ECG Routine 08/30/2023 11:50 AM EST [facility] Work Phone: End: 08-30-2023 Electrocardiogram - Day of Discharge [facility] Work Phone: Comment on above: Once for 1 Occurrences starting 08/30/20 23 until 08/30/2023 End: 08-29-2023 Electrocardiogram, 12-lead PRN ACS symptoms [facility] Work Phone: Comment on above: As needed until discontinued starting Once for 1 Occurrenc es starting 08/29/2023 until 08/29/2023 Electrocardiogram, 12-lead PRN ACS symptoms Electrocardiogram, 12-lead PRN ACS symptoms ECG Routine As needed until discontinued starting 08/29/2023 [facility] Work Phone: Comment on above: As needed until discontinued starting Electrophysiology study Electrop hysiology procedure Electrophysiology Routine Ischemic cardiomyopathy 06/29/2023 4:21 PM EDT [facility] Work Phone: End: 06-30-2023 Extra Tubes [facility] Service Area Work Phone: Comment on above: Once (Lab) for 1 Occurrences starting until 06/30/2023 Glucose [Mass/volume ] in Serum or Plasma POCT Glucose Point of Care Testing - Docked Device Routine As needed (Lab) until discontinued starting 06/29/2023 [facility] Service Area Work Phone: Comment on above: As needed (Lab) until discontinued start ing 06/29/2023 Glucose [Mass/volume ] in Serum or Plasma [facility] Work Phone: Comment on above: 4x daily - AC and at bedtime until disco ntinued starting 08/29/2023 As needed (Lab) unti l discontinued starting 08/29/2023 Lavender Top Lavender Top Lab Routine 06/30/2023 12:02 PM EDT [facility] Work Phone: Patient Education [facility] Work Phone: Patient referral [facility] Work Phone: SST TOP SST TOP Lab Rout ine 06/30/2023 12:02 PM EDT [facility] Work Phone: End: 08-31-2023 Urethral Catheter Removal Urethral Catheter Removal Procedures Routine Once for 1 Occurrences starting 08/31/2023 until 08/31/2023 [facility] Work Phone: Comment on above: Once for 1 Occurrences starting 08/31/20 until 08/31/2023 Immunizations Immunization Date Immunization Notes Care Provider Karthikeyan pankaj 11-28-2020 Nelson COVID-19 Vac cine 0.5 ML Intramuscular Suspension Gladys Cale Garcia Work Phone: [facility] 250 DO Work Phone: 11-17-2020 Nelson COVID-19 Vac cine 0.5 ML Intramuscular Suspension Gladys Madsen Radha Work Phone: [facility] 06-19-2020 influenza virus vacc ine, unspecified formulation Gladys Madsen Garcia Work Phone: [place] [address] DO Work Phone: 06-19-2020 influenza, seasonal, injectable Gladys Garcia Work Phone: [place] [address] DO Work Phone: 05-20-2019 influenza virus vacc ine, unspecified formulation Gladys Garcia Work Phone: [place] [address] DO Work Phone: 08-29-2018 influenza, injectabl e, quadrivalent, preservative free Gladys Cale Garcia Work Phone: [facility] 250 DO Work Phone: 06-19-2018 influenza virus vacc ine, unspecified formulation Gladys Madsen Garcia Work Phone: [facility] 250 DO Work Phone: 07-05-2017 influenza, injectabl e, quadrivalent, preservative free Gladys Madsen Garcia Work Phone: [facility] 250 DO Work Phone: 06-25-2016 hepatitis A vaccine, adult dosage Gladys Garcia Work Phone: [place] [address] DO Work Phone: 06-25-2016 typhoid capsular polysaccharide vaccine Gldays Garcia Work Phone: [place] [address] DO Work Phone: 08-20-2013 tetanus toxoid, redu brenda diphtheria toxoid, and acellular pertussis vaccine, adsorbed Gladys Garcia Work Phone: [place] [address] DO Work Phone: 08-10-2013 influenza, seasonal, injectable Gladys Garcia Work Phone: [place] [address] DO Work Phone: Payers Date Payer Category Payer Unknown 2022 Private Health Insurance [facility] [id number] 2022-Present [address] [place] [address] [id number] 2020 Self-pay [id number] 1963 Unknown [id number] 2.16.840.1.539101.3.579. 2.593 1963 Unknown [id number] 2.16.840.1.801160.3.579. 2.593 1963 Unknown [id number] 2.16.840.1.313470.3.579. 2.593 1963 Unknown [id number] 2.16.840.1.946415.3.579. 2.593 1963 Unknown [id number] 2.16.840.1.197356.3.579. 2.593 1963 Unknown [id number] 2.16.840.1.280795.3.579. 2.727 1963 Unknown [id number] 2.16.840.1.863312.3.579. 2.727 1963 Unknown [id number] 2.16.840.1.649407.3.579. 2.8 1963 Unknown [id number] 2.16.840.1.319369.3.579. 2.1068 1963 Unknown [id number] 2.16.840.1.565990.3.579. 2.4 1963 Unknown [id number] 2.16.840.1.915685.3.579. 2.124 1963 Unknown [id number] 2.16.840.1.646313.3.579. 2.4 1963 Unknown [id number] 2.16.840.1.842271.3.579. 2.1244 1963 Unknown [id number] 2.16.840.1.830732.3.579. 2.356 1963 Unknown [id number] 2.16.840.1.225899.3.579. 2.356 1963 Unknown [id number] 2.16.840.1.233551.3.579. 2.356 1963 Unknown [id number] 2.16.840.1.415113.3.579. 2.356 1963 Unknown [id number] 2.16.840.1.813933.3.579. 2.356 1963 Unknown [id number] 2.16.840.1.206327.3.579. 2.356 1963 Unknown [id number] 2.16.840.1.167819.3.579. 2.1246 1963 Unknown [id number] 2.16.840.1.678285.3.579. 2.1246 1963 Unknown [id number] 2.16.840.1.721914.3.579. 2.1246 1963 Unknown [id number] 2.16.840.1.993249.3.579. 2.1247 1963 Unknown [id number] 2.16.840.1.741042.3.579. 2.1247 1963 Unknown [id number] 2.16.840.1.636869.3.579. 2.1259 1963 Unknown [id number] 2.16.840.1.999947.3.579. 2.1259 1959 Self-pay [id number] 1959 Unknown [id number] 2.16.840.1.580535.19 1959 Unknown [id number] Unknown [id number] 2.16.840.1.445527.3.579. 2.531 Unknown [id number] 2.16.840.1.542329.3.579. 2.531 Unknown [id number] 2.16.840.1.219398.3.579. 2.531 Unknown [id number] 2.16.840.1.446894.3.579. 2.531 Unknown [id number] 2.16.840.1.979340.3.579. 2.531 Social History Date Type Detail Facility Start: 06-29-2023 End: 08-29-2023 Never a smoker Never a smoker [facility] Start: 06-29-2023 End: 08-29-[address] [facility] Start: 03-01-2022 End: 06-30-2023 Tobacco smoking status NHIS Never smoked tobacco (finding) [facility] Start: 1965 Sex Assigned At Male [facility] Start: 06-30-2023 Tobacco use and exposure Smokeless tobacco non-user [facility] Work Phone: How often to you hav e a drink containing alcohol? Never [facility] How many standard drinks containing alcohol do you have on a typical day? Patient does not drink [facility] Work Phone: How hard is it for y ou to pay for the very basics like food, housing, medical care, and heating Not very hard [facility] Work Phone: In the past 12 month s, was there a time when you were not able to pay the mortgage or rent on time? No [facility] Work Phone: Start: 1965 [facility] Start: 06-19-2023 End: 08-29-2023 Exposure to SARS-CoV-2 (event) Not sure [facility] Start: 07-12-2023 End: 08-30-2023 Alcohol intake Lifetime non-drinker (finding) [facility] Work Phone: Medical Equipment Procedure Code Equipment Code Equipment Original Text Equipment Identifier Dates CL CLOSURE DEVIC E EXOSEAL 6F FDA Start: 10-26-2019 CL STENT BELKIS 2.[address] art: 10-26-2019 Drug-eluting cor onary artery stent, [id number] [id number] FDA Start: 10-26-2019 [id number] FDA Start: 11-08-2019 Femoral artery c losure plug/patch, synthetic polymer [id number] FDA Start: 11-08-2019 CL CLOSURE DEVIC E EXOSEAL 6F FDA Start: 10-26-2019 CL STENT BELKIS 2.[address] art: 10-26-2019 [id number] FDA Start: 11-08-2019 CL CLOSURE DEVIC E EXOSEAL 6F FDA Start: 10-26-2019 CL STENT BELKIS 2.[address] art: 10-26-2019 [id number] FDA Start: 11-08-2019 CL CLOSURE DEVIC E EXOSEAL 6F FDA Start: 10-26-2019 CL STENT BELKIS 2.[address] art: 10-26-2019 [id number] FDA Start: 11-08-2019 [id number] Start: 06-29-2023 CL CLOSURE DEVIC E EXOSEAL 6F FDA Start: 10-26-2019 CL STENT BELKIS 2.[address] art: 10-26-2019 [id number] FDA Start: 11-08-2019 Functional Status Date Assessment Result Facility 04-04-2023 Functional status Patient at Baseline [facility] Work Phone: Mental Status Date Assessment Result Facility 04-04-2023 Cognitive function Cognitive Sta tus Patient at Baseline [facility] Work Phone: Clinical Notes 06-24-2021 to 08-31-2023 Care Plan - Yonathan Nunez RN - 08/31/2023 5:16 PM ESTCare Plan - Yonathan Nunez RN - 08/31/2023 5:16 PM ESTCare Plan - Alicia Jimenez RN - 08/29/2023 10:10 PM EST Note Date & Type Note Facility 08-31-2023 Plan of care note Problem: Fall/Injury Goal: Not fall by end of shift 08/31/2023 1716 by Yonathan Nunez RN Outcome: Progressing 08/31/2023 1716 by Yonathan Nunez RN Outcome: Progressing Goal: Be free from injury by end of the shift 08/31/2023 1716 by Yonathan Nunez RN Outcome: Progressing 08/31/2023 1716 by Yonathan Nunez RN Outcome: Progressing Goal: Verbalize understanding of personal risk factors for fall in the hospital 08/31/2023 1716 by Yonathan Nunez RN Outcome: Progressing 08/31/2023 1716 by Yonathan Nunez RN Outcome: Progressing Goal: Verbalize understanding of risk factor reduction measures to prevent injury from fall in the home 08/31/2023 1716 by Yonathan Nunez RN Outcome: Progressing 08/31/2023 1716 by Yonathan Nunez RN Outcome: Progressing Goal: Use assistive devices by end of the shift 08/31/2023 1716 by Yonathan Nunez RN Outcome: Progressing 08/31/2023 1716 by Yonathan Nunez RN Outcome: Progressing Goal: Pace activities to prevent fatigue by end of the shift 08/31/2023 1716 by Yonathan Nunez RN Outcome: Progressing 08/31/2023 1716 by Yonathan Nunez RN Outcome: Progressing The clinical goals for the shift include rest and comfort [facility] 08-31-2023 Miscellaneous Notes Problem: Fall/Injury Goal: Not fall by end of shift 08/31/2023 1716 by Yonathan Nunez RN Outcome: Progressing 08/31/2023 1716 by Yonathan Nunez RN Outcome: Progressing Goal: Be free from injury by end of the shift 08/31/2023 1716 by Yonathan Nunez RN Outcome: Progressing 08/31/2023 1716 by Yonathan Nunez RN Outcome: Progressing Goal: Verbalize understanding of personal risk factors for fall in the hospital 08/31/2023 1716 by Yonathan Nunez RN Outcome: Progressing 08/31/2023 1716 by Yonathan Nunez RN Outcome: Progressing Goal: Verbalize understanding of risk factor reduction measures to prevent injury from fall in the home 08/31/2023 171 by Yonathan Nunez RN Outcome: Progressing 08/31/2023 171 by Yonathan Nunez RN Outcome: Progressing Goal: Use assistive devices by end of the shift 08/31/2023 1716 by Yonathan Nunez RN Outcome: Progressing 08/31/2023 1716 by Yonathan Nunez RN Outcome: Progressing Goal: Pace activities to prevent fatigue by end of the shift 08/31/2023 1716 by Yonathan Nunez RN Outcome: Progressing 08/31/2023 1716 by Yonathan Nunez RN Outcome: Progressing The clinical goals for the shift include rest and comfort The patient's goals for the shift include stay in NSR The clinical goals for the shift include rest and comfort Problem: Fall/Injury Goal: Not fall by end of shift Outcome: Progressing Goal: Be free from injury by end of the shift Outcome: Progressing Goal: Verbalize understanding of personal risk factors for fall in the hospital Outcome: Progressing documented in this encounter [facility] Work Phone: 08-30-2023 History of Present illness Narrative Harriett Thakkar is a 58 y.o. male on day 1 of admission presenting with Atrial fibrillation (CMS/HCC). HPI: The patient is still short of breath and having difficulty ambulating. He also complains of severe constipation and diffuse chest pain at times. Physical Exam: General Appearance: Alert, oriented, no distress Skin: Warm and dry Head and Neck: No elevation of JVP, no carotid bruits Cardiac Exam: Rhythm is regular, S1 and S2 are normal, no murmur S3 or S4 Lungs: Basilar rales bilaterally Extremities: Trace edema Neurologic: No focal deficits Psychiatric: Appropriate mood and behavior Last Recorded Vitals Blood pressure 130/75, pulse 99, temperature 36.5 C (97.7 F), resp. rate 22, height 1.88 m (6' 2 ), weight 146 kg (321 lb 14 oz), SpO2 94 %. Intake/Output last 3 Shifts: I/O last 3 completed shifts: In: 1268.3 (8.7 mL/kg) [I.V.:68.3 (0.5 mL/kg); IV Piggyback:1200] Out: 1560 (10.7 mL/kg) [Urine:1500 (0.3 mL/kg/hr); Blood:60] Weight: 146 kg Medications: Scheduled medications amiodarone, 200 mg, oral, Daily apixaban, 5 mg, oral, q12h atorvastatin, 80 mg, oral, Nightly clopidogrel, 75 mg, oral, Daily colchicine, 0.6 mg, oral, Daily furosemide, 20 mg, intravenous, Once furosemide, 40 mg, oral, Daily insulin glargine, 65 Units, subcutaneous, Nightly metoprolol succinate XL, 25 mg, oral, Daily midodrine, 10 mg, oral, TID potassium chloride CR, 20 mEq, oral, Daily sennosides-docusate sodium, 2 tablet, oral, BID sodium phosphates, 1 enema, rectal, Once Labs: CBC - No results found for: WBC , HGB , HCT , MCV , PLT CMP - No results found for: CALCIUM , PHOS , PROT , ALBUMIN , AST , ALT , ALKPHOS , BILITOT LIPID PANEL - No results found for: CHOL , TRIG , HDL , CHHDL , LDLF , VLDL , NHDL RENAL FUNCTION PANEL - No results found for: GLUCOSE , NA , K , CL , CO2 , ANIONGAP , BUN , CREATININE , GFRMALE , CALCIUM , PHOS , ALBUMIN Test Results: Telemetry shows sinus rhythm/sinus tachycardia Assessment/Plan: 1. Paroxysmal atrial fibrillation: The patient is in sinus rhythm today. He is still short of breath and is on room air. IV furosemide will be administered. He is also complaining of severe constipation. A chest x-ray will also be obtained. He may require another night under observation. Nathan Au DO Attempted to call into patients room and cell phone with no answer. Patient from home. Patient in extended recovery after a cardiac ablation for A-fib. documented in this encounter [facility] Work Phone: 08-29-2023 Plan of care note The patient's goals for the shift include stay in NSR The clinical goals for the shift include rest and comfort Problem: Fall/Injury Goal: Not fall by end of shift Outcome: Progressing Goal: Be free from injury by end of the shift Outcome: Progressing Goal: Verbalize understanding of personal risk factors for fall in the hospital Outcome: Progressing [facility] Work Phone: 08-29-2023 Nurse Note Report called to 8th floor RN, edwin sites stable. IV patent and patient has all belongings. [facility] 08-29-2023 Nurse Note Report called to 8th floor RN, groin sites stable. IV patent and patient has all belongings. documented in this encounter [facility] Work Phone: 08-29-2023 History and physical note History and Physical Pre Surgical Review (> 30 days) Subjective Patient is a 58 y.o. male who presents to [facility] on with atrial fibrillation for an ablation. Recently underwent AICD implantation by Dr. Ronal Tinajero without complications. He is currently on amiodarone. He is on Coumadin therapy for anticoagulation. He continues to have occasional orthostatic hypotension while he is on maximal dose midodrine. He denies any angina or palpitations and no syncope. He has no symptoms suggestive of heart failure. He is able to tolerate low-dose of furosemide without hypotension. His palpitations have improved. The patients regular vp genetic referred the patient to EP for AF Ablation. Past Medical History: Diagnosis Date Arrhythmia Atrial fibrillation (CMS/HCC) Diabetes mellitus (CMS/HCC) Myocardial infarction (CMS/HCC) Personal history of other specified conditions History of dizziness Personal history of other specified conditions History of dyspnea Pulmonary embolism ([facility]/HCC) Sleep apnea Past Surgical History: Procedure Laterality Date CARDIAC CATHETERIZATION CARDIAC ELECTROPHYSIOLOGY PROCEDURE N/A 06/29/2023 Procedure: ICD Dual Implant; Surgeon: Lior Villeda MD; Location: [facility] Cardiac Vp Cardiovascular; Service: Electrophysiology; Laterality: N/A; CORONARY STENT PLACEMENT INSERT / REPLACE / REMOVE PACEMAKER 06/29/23 OTHER SURGICAL HISTORY 07/25/2021 Cardiac catheterization with stent placement OTHER SURGICAL HISTORY 07/25/2021 Neck surgery OTHER SURGICAL HISTORY 07/25/2021 Toe amputation OTHER SURGICAL HISTORY 07/25/2021 Colonoscopy Social History Socioeconomic History Marital status: Spouse name: Not on file Number of children: Not on file Years of education: Not on file Highest education level: Not on file Occupational History Not on file Tobacco Use Smoking status: Never Smokeless tobacco: Never Vaping Use Vaping Use: Never used Substance and Sexual Activity Alcohol use: Never Drug use: Never Sexual activity: Not Currently Partners: Female control/protection: Abstinence Other Topics Concern Not on file Social History Narrative Not on file Social Determinants of Health Financial Resource Strain: Low Risk (06/29/2023) Overall Financial Resource Strain (CARDIA) Difficulty of Paying Living Expenses: Not very hard Food Insecurity: Not on file Transportation Needs: Unknown (06/29/2023) PRAPARE - Transportation Lack of Transportation (Medical): No Lack of Transportation (Non-Medical): Not on file Physical Activity: Not on file Stress: Not on file Social Connections: Not on file Intimate Partner Violence: Not on file Housing Stability: Low Risk (06/29/2023) Housing Stability Vital Sign Unable to Pay for Housing in the Last Year: No Number of Places Lived in the Last Year: 1 Unstable Housing in the Last Year: No Family History Problem Relation Name Age of Onset Diabetes Mother Kay Thakkar Diabetes type I Mother Kay Thakkar Diabetes Father Kash Thakkar Other (s/p CABG) Father Kash Thakkar Diabetes type I Father Kash Thakkar Heart attack Father Kash Thakkar Obesity Father Kash Thakkar Sudden Father Kash Thakkar Hypertension Brother Dennis Thakkar Obesity Brother Dennis Thakkar Review of Systems Review of Systems Constitutional: Negative for activity change, appetite change, chills, diaphoresis, fatigue, fever and unexpected weight change. HENT: Negative for congestion, sore throat and trouble swallowing. Eyes: Negative for visual disturbance. Respiratory: Negative for apnea, cough, choking, chest tightness, shortness of breath, wheezing and stridor. Cardiovascular: Negative for chest pain, palpitations and leg swelling. Gastrointestinal: Negative for abdominal distention, abdominal pain, blood in stool, constipation, diarrhea, nausea and vomiting. Endocrine: Negative for cold intolerance and heat intolerance. Genitourinary: Negative for urgency. Musculoskeletal: Negative for arthralgias. Skin: Negative for color change. Neurological: Negative for dizziness, light-headedness and headaches. Hematological: Negative for adenopathy. Psychiatric/Behavioral: Negative for behavioral problems and sleep disturbance. Objective Temp: [36.1 C (97 F)] 36.1 C (97 F) Heart Rate: [75] 75 Resp: [17] 17 BP: (146)/(82) 146/82 Allergies Allergies Allergen Reactions Penicillins Unknown Paulette Inhibitors Other Hypotension Sulfamethoxazole Rash Home Medications Current Outpatient Medications Medication Instructions amiodarone (PACERONE) 200 mg, oral, 2 times daily amiodarone (PACERONE) 200 mg, oral, Daily atorvastatin (Lipitor) 80 mg tablet 1 tablet, oral, Nightly clopidogrel (Plavix) 75 mg tablet 1 tablet, oral, Daily furosemide (Lasix) 40 mg tablet 1 tablet, oral, Daily insulin aspart (NovoLOG) 100 unit/mL injection Insulin Aspart 100 UNIT/ML SOLN Quantity: 120 Refills: 0 Start : 08-Nov-2020 Active insulin glargine-yfgn (Semglee,insulin glargine-yfgn,) 100 unit/mL pen Inject 65 Units under the skin once daily at bedtime. metFORMIN (Glucophage) 850 mg tablet 1 tablet, oral, 2 times daily metoprolol succinate XL (TOPROL-XL) 25 mg, oral, Daily, Do not crush or chew. midodrine (PROAMATINE) 10 mg, oral, 3 times daily nitroglycerin (NITROSTAT) 0.4 mg, sublingual, Every 5 min PRN, PLACE 1 TABLET UNDER THE TONGUE EVERY 5 MINUTES FOR UP TO 3 DOSES NEEDED FOR CHEST PAIN.CALL 911 IF PAIN PERSISTS. potassium chloride CR 20 mEq ER tablet 1 tablet, Daily semaglutide (Ozempic) 1 mg/dose (4 mg/3 mL) pen injector Ozempic (1 MG/DOSE) 4 MG/3ML Subcutaneous Solution Pen-injector Quantity: 9 Refills: 0 Start : 02-Jul-2021 Active warfarin (Coumadin) 5 mg tablet TAKE 1 AND 1/2 TABLETS BY MOUTH ON TUESDAY, TUESDAY, TUESDAY. TAKE 1 TABLET ALL OTHER DAYS Physical Exam Physical Exam Vitals reviewed. Constitutional: Appearance: Normal appearance. HENT: Head: Normocephalic and atraumatic. Nose: Nose normal. Mouth/Throat: Mouth: Mucous membranes are moist. Eyes: Conjunctiva/sclera: Conjunctivae normal. Cardiovascular: Rate and Rhythm: Normal rate. Rhythm irregular. Pulses: Normal pulses. Heart sounds: Normal heart sounds. Pulmonary: Effort: Pulmonary effort is normal. Breath sounds: Normal breath sounds. Abdominal: General: Bowel sounds are normal. Palpations: Abdomen is soft. Musculoskeletal: General: Normal range of motion. Cervical back: Normal range of motion and neck supple. Right lower leg: Edema present. Left lower leg: Edema present. Left Lower Extremity: (few toes amputated) Skin: General: Skin is warm and dry. Neurological: General: No focal deficit present. Mental Status: He is alert. Psychiatric: Mood and Affect: Mood normal. Speech: Speech normal. Behavior: Behavior normal. Airway/Sedation Assessment Assessment by anesthesia See anesthesia airway/sedation assessment Mouth Opening OK yes Neck Flexibility OK yes Loose Teeth No Oropharyngeal Classification Grade III ASA PS Classification ASA III - Patient with severe systemic disease Sedation Plan Moderate Risks, benefits, and alternatives discussed with patient. ERAS (Enhanced Recovery After Surgery): ERAS Patient: No Consent: COVID-19 Consent: COVID-19 Risk Consent Surgeon has reviewed miller risks related to the risk of neil COVID-19 and if they contract COVID-19 what the risks are. Plan for Ablation for Atrial Fibrillation today with Dr. Villeda. EKG today confirming AF. RICHARD Chacon [facility] Work Phone: 08-29-2023 History and physical note History and Physical Pre Surgical Review (> 30 days) Subjective Patient is a 58 y.o. male who presents to [facility] on with atrial fibrillation for an ablation. Recently underwent AICD implantation by Dr. Ronal Tinajero without complications. He is currently on amiodarone. He is on Coumadin therapy for anticoagulation. He continues to have occasional orthostatic hypotension while he is on maximal dose midodrine. He denies any angina or palpitations and no syncope. He has no symptoms suggestive of heart failure. He is able to tolerate low-dose of furosemide without hypotension. His palpitations have improved. The patients regular vp genetic referred the patient to EP for AF Ablation. Past Medical History: Diagnosis Date Arrhythmia Atrial fibrillation (CMS/HCC) Diabetes mellitus (CMS/HCC) Myocardial infarction (CMS/HCC) Personal history of other specified conditions History of dizziness Personal history of other specified conditions History of dyspnea Pulmonary embolism (CMS/HCC) Sleep apnea Past Surgical History: Procedure Laterality Date CARDIAC CATHETERIZATION CARDIAC ELECTROPHYSIOLOGY PROCEDURE N/A 06/29/2023 Procedure: ICD Dual Implant; Surgeon: Lior Villeda MD; Location: [facility] Cardiac Vp Cardiovascular; Service: Electrophysiology; Laterality: N/A; CORONARY STENT PLACEMENT INSERT / REPLACE / REMOVE PACEMAKER 06/29/23 OTHER SURGICAL HISTORY 07/25/2021 Cardiac catheterization with stent placement OTHER SURGICAL HISTORY 07/25/2021 Neck surgery OTHER SURGICAL HISTORY 07/25/2021 Toe amputation OTHER SURGICAL HISTORY 07/25/2021 Colonoscopy Social History Socioeconomic History Marital status: Spouse name: Not on file Number of children: Not on file Years of education: Not on file Highest education level: Not on file Occupational History Not on file Tobacco Use Smoking status: Never Smokeless tobacco: Never Vaping Use Vaping Use: Never used Substance and Sexual Activity Alcohol use: Never Drug use: Never Sexual activity: Not Currently Partners: Female control/protection: Abstinence Other Topics Concern Not on file Social History Narrative Not on file Social Determinants of Health Financial Resource Strain: Low Risk (06/29/2023) Overall Financial Resource Strain (CARDIA) Difficulty of Paying Living Expenses: Not very hard Food Insecurity: Not on file Transportation Needs: Unknown (06/29/2023) PRAPARE - Transportation Lack of Transportation (Medical): No Lack of Transportation (Non-Medical): Not on file Physical Activity: Not on file Stress: Not on file Social Connections: Not on file Intimate Partner Violence: Not on file Housing Stability: Low Risk (06/29/2023) Housing Stability Vital Sign Unable to Pay for Housing in the Last Year: No Number of Places Lived in the Last Year: 1 Unstable Housing in the Last Year: No Family History Problem Relation Name Age of Onset Diabetes Mother Kay Thakkar Diabetes type I Mother Kay Thakkar Diabetes Father Kash Thakkar Other (s/p CABG) Father Kash Thakkar Diabetes type I Father Kash Thakkar Heart attack Father Kash Thakkar Obesity Father Kash Thakkar Sudden Father Kash Thakkar Hypertension Brother Dennis Thakkar Obesity Brother Dennis Thakkar Review of Systems Review of Systems Constitutional: Negative for activity change, appetite change, chills, diaphoresis, fatigue, fever and unexpected weight change. HENT: Negative for congestion, sore throat and trouble swallowing. Eyes: Negative for visual disturbance. Respiratory: Negative for apnea, cough, choking, chest tightness, shortness of breath, wheezing and stridor. Cardiovascular: Negative for chest pain, palpitations and leg swelling. Gastrointestinal: Negative for abdominal distention, abdominal pain, blood in stool, constipation, diarrhea, nausea and vomiting. Endocrine: Negative for cold intolerance and heat intolerance. Genitourinary: Negative for urgency. Musculoskeletal: Negative for arthralgias. Skin: Negative for color change. Neurological: Negative for dizziness, light-headedness and headaches. Hematological: Negative for adenopathy. Psychiatric/Behavioral: Negative for behavioral problems and sleep disturbance. Objective Temp: [36.1 C (97 F)] 36.1 C (97 F) Heart Rate: [75] 75 Resp: [17] 17 BP: (146)/(82) 146/82 Allergies Allergies Allergen Reactions Penicillins Unknown Paulette Inhibitors Other Hypotension Sulfamethoxazole Rash Home Medications Current Outpatient Medications Medication Instructions amiodarone (PACERONE) 200 mg, oral, 2 times daily amiodarone (PACERONE) 200 mg, oral, Daily atorvastatin (Lipitor) 80 mg tablet 1 tablet, oral, Nightly clopidogrel (Plavix) 75 mg tablet 1 tablet, oral, Daily furosemide (Lasix) 40 mg tablet 1 tablet, oral, Daily insulin aspart (NovoLOG) 100 unit/mL injection Insulin Aspart 100 UNIT/ML SOLN Quantity: 120 Refills: 0 Start : 08-Nov-2020 Active insulin glargine-yfgn (Semglee,insulin glargine-yfgn,) 100 unit/mL pen Inject 65 Units under the skin once daily at bedtime. metFORMIN (Glucophage) 850 mg tablet 1 tablet, oral, 2 times daily metoprolol succinate XL (TOPROL-XL) 25 mg, oral, Daily, Do not crush or chew. midodrine (PROAMATINE) 10 mg, oral, 3 times daily nitroglycerin (NITROSTAT) 0.4 mg, sublingual, Every 5 min PRN, PLACE 1 TABLET UNDER THE TONGUE EVERY 5 MINUTES FOR UP TO 3 DOSES NEEDED FOR CHEST PAIN.CALL 911 IF PAIN PERSISTS. potassium chloride CR 20 mEq ER tablet 1 tablet, Daily semaglutide (Ozempic) 1 mg/dose (4 mg/3 mL) pen injector Ozempic (1 MG/DOSE) 4 MG/3ML Subcutaneous Solution Pen-injector Quantity: 9 Refills: 0 Start : 02-Jul-2021 Active warfarin (Coumadin) 5 mg tablet TAKE 1 AND 1/2 TABLETS BY MOUTH ON TUESDAY, TUESDAY, TUESDAY. TAKE 1 TABLET ALL OTHER DAYS Physical Exam Physical Exam Vitals reviewed. Constitutional: Appearance: Normal appearance. HENT: Head: Normocephalic and atraumatic. Nose: Nose normal. Mouth/Throat: Mouth: Mucous membranes are moist. Eyes: Conjunctiva/sclera: Conjunctivae normal. Cardiovascular: Rate and Rhythm: Normal rate. Rhythm irregular. Pulses: Normal pulses. Heart sounds: Normal heart sounds. Pulmonary: Effort: Pulmonary effort is normal. Breath sounds: Normal breath sounds. Abdominal: General: Bowel sounds are normal. Palpations: Abdomen is soft. Musculoskeletal: General: Normal range of motion. Cervical back: Normal range of motion and neck supple. Right lower leg: Edema present. Left lower leg: Edema present. Left Lower Extremity: (few toes amputated) Skin: General: Skin is warm and dry. Neurological: General: No focal deficit present. Mental Status: He is alert. Psychiatric: Mood and Affect: Mood normal. Speech: Speech normal. Behavior: Behavior normal. Airway/Sedation Assessment Assessment by anesthesia See anesthesia airway/sedation assessment Mouth Opening OK yes Neck Flexibility OK yes Loose Teeth No Oropharyngeal Classification Grade III ASA PS Classification ASA III - Patient with severe systemic disease Sedation Plan Moderate Risks, benefits, and alternatives discussed with patient. ERAS (Enhanced Recovery After Surgery): ERAS Patient: No Consent: COVID-19 Consent: COVID-19 Risk Consent Surgeon has reviewed miller risks related to the risk of neil COVID-19 and if they contract COVID-19 what the risks are. Plan for Ablation for Atrial Fibrillation today with Dr. Villeda. EKG today confirming AF. RICHARD Chacon documented in this encounter [facility] Work Phone: 08-03-2023 Evaluation note Encounter Date Diagnosis Assessment Notes Jul, Medication monitoring encounter (ICD-10 - Z51.81) Referring Provider: Angel Griggs Diagnosis: Atrial Fibrillation INR Goal: 2-3 INR: 2.2 Warfarin Tablet Size: 5mg Tuesday: 5mg Tuesday: 5mg Tuesday: 5mg Tuesday: 5mg : 5mg Tuesday: 5mg Tuesday: 5mg Total Weekly Dose: 35 mg Continue with above regimen. Follow up in ~3 weeks to check levels pre-procedure. Patient will have a heart ablation on August 29. Advised patient to call clinic if instructed to hold warfarin so we can prepare instructions for his next appt. Patient also understands to call clinic if he needs an INR check closer to his procedure. Seen by Joyce Chen PharmD Candidate/Nora Lopez PharmD [employer] Other 10-24-2023 History of Present illness Narrative* Angel Griggs MD - 07/12/2023 9:40 AM EDT Subjective Harriett Thakkar is a 58 y.o. male Chief Complaint Follow-up Patient is in the office for follow-up for the problems noted below. Recently underwent AICD implantation by Dr. Tinajero without complications, he is scheduled to be seen in the near future also forconsideration of AF ablation. He is currently on amiodarone instead of dofetilide. He is on Coumadin therapy for anticoagulation. He continues to have occasional orthostatic hypotension while he is on maximal dose midodrine. He denies any angina or palpitations and no syncope. He has no symptoms suggestive of heart failure. He is able to tolerate low-dose of furosemide without hypotension. His palpitations have improved. He has normal lung examination with no evidence of volume overload. He does have irregular rhythm confirmed by EKG to be due to atrial fibrillation with controlled rate. Assessment/recommendations: 1-Paroxysmal atrial fibrillation. Currently in atrial fibrillation while he is on amiodarone therapy that has replaced dofetilide directed by electrophysiology. He is on Coumadin therapy, heart rate is under control. The patient is scheduled to have AF ablation in the near future. Long-term antiarrh ythmic therapy determined by electrophysiology 2-sleep apnea intolerant to CPAP machine, patient knows that this can lead to atrial fibrillation episodes. 1-[id number] coronary artery disease status post angioplasty of the anterior descending artery with stent thrombosis leading to acute ST elevation myocardial infarction treated immediately with stenting. He will remain on antiplatelet therapy along with other secondary measures to prevent recurrent coronary artery disease. Nuclear stress test March 2021 revealed no ischemia but anteroseptal apical myocardial infarction 4-morbid obesity, the patient was advised to continue to work on low-calorie diet to bring his BMI down. 5-diabetes this has been handled by his family physician.. A1c not on target yet, managed by PCP 6-orthostatic hypotension, with intermittent dizziness that is positional. Presently on midodrine which has been well-tolerated. 7-peripheral neuropathy from diabetes, this is contributing to positional dizziness. 8-hyperlipidemia on atorvastatin 9-high-risk medication with antiplatelet therapy, antiarrhythmics and anticoagulants, well-tolerated 10-History of pulmonary embolism on chronic Coumadin therapy, no recurrences 11-status post recent AICD implantation due to nonsustained V. tach and unexplained syncope. This will be followed in the pacemaker clinic. Review of Systems Cardiovascular: Positive for palpitations. Neurological: Positive for dizziness. All other systems reviewed and are negative. Visit Vitals BP 108/82 (BP Location: Left arm, Patient Position: Sitting) Pulse 83 Ht 1.88 m (6' 2 ) Wt 138 kg (304 lb) BMI 39.03 kg/m Smoking Status Never BSA 2.68 m EKG done in office today Objective Physical Exam Constitutional: Appearance: Normal appearance. He is normal weight. HENT: Nose: Nose normal. Neck: Vascular: No carotid bruit. Cardiovascular: Rate and Rhythm: Normal rate. Rhythm irregular. Pulses: Normal pulses. Heart sounds: Normal heart sounds. Pulmonary: Effort: Pulmonary effort is normal. Abdominal: General: Bowel sounds are normal. Palpations: Abdomen is soft. Genitourinary: Rectum: Normal. Musculoskeletal: General: Normal range of motion. Cervical back: Normal range of motion. Right lower leg: No edema. Left lower leg: No edema. Skin: General: Skin is warm and dry. Neurological: General: No focal deficit present. Mental Status: He is alert. Psychiatric: Mood and Affect: Mood normal. Behavior: Behavior normal. Thought Content: Thought content normal. Judgment: Judgment normal. Current Medications Current Outpatient Medications: amiodarone (Pacerone) 200 mg tablet, Take 1 tablet (200 mg) by mouth 2 times a day for 21 days., Disp: 42 tablet, Rfl: 0 [START ON 07/22/2023] amiodarone (Pacerone) 200 mg tablet, Take 1 tablet (200 mg) by mouth once daily. Do not start before July 22, 2023., Disp: 30 tablet, Rfl: 1 atorvastatin (Lipitor) 80 mg tablet, Take 1 tablet (80 mg) by mouth once daily at bedtime., Disp: ,Rfl: clopidogrel (Plavix) 75 mg tablet, Take 1 tablet (75 mg) by mouth once daily., Disp: , Rfl: furosemide (Lasix) 40 mg tablet, Take 1 tablet (40 mg) by mouth once daily., Disp: , Rfl: insulin aspart (NovoLOG) 100 unit/mL injection, Insulin Aspart 100 UNIT/ML SOLN Quantity: 120 Refills: 0 Start : 08-Nov-2020 Active, Disp: , Rfl: insulin glargine-yfgn (Semglee,insulin glargine-yfgn,) 100 unit/mL pen, Inject 65 Units under the skin once daily at bedtime., Disp: , Rfl: metFORMIN (Glucophage) 850 mg tablet, Take 1 tablet (850 mg) by mouth 2 times a day., Disp: , Rfl: midodrine (Proamatine) 10 mg tablet, Take 1 tablet (10 mg) by mouth 3 times a day., Disp: , Rfl: nitroglycerin (Nitrostat) 0.4 mg SL tablet, Place 1 tablet (0.4 mg) under the tongue every 5 minutes if needed for chest pain. PLACE 1 TABLET UNDER THE TONGUE EVERY 5 MINUTES FOR UP TO 3 DOSES NEEDED FOR CHEST PAIN.CALL 911 IF PAIN PERSISTS., Disp: , Rfl: potassium chloride CR 20 mEq ER tablet, 1 tablet (20 mEq) once daily., Disp: , Rfl: semaglutide (Ozempic) 1 mg/dose (4 mg/3 mL) pen injector, Ozempic (1 MG/DOSE) 4 MG/3ML SubcutaneousSolution Pen-injector Quantity: 9 Refills: 0 Start : 02-Jul-2021 Active, Disp: , Rfl: warfarin (Coumadin) 5 mg tablet, Take as directed [place] [facility] [place], Disp: , Rfl: metoprolol succinate XL (Toprol-XL) 25 mg 24 hr tablet, Take 1 tablet (25 mg) by mouth once daily. Do not crush or chew., Disp: 30 tablet, Rfl: 1 Assessment/Plan 1. Paroxysmal atrial fibrillation (CMS/HCC) ECG 12 Lead Follow Up In Cardiology metoprolol succinate XL (Toprol-XL) 25 mg 24 hr tablet 2. 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Follow Up In Cardiology 3. History of PTCA 4. History of GA (myocardial infarction) 5. Ischemic cardiomyopathy metoprolol succinate XL (Toprol-XL) 25 mg 24 hr tablet 6. Ventricular tachycardia, nonsustained (CMS/HCC) 7. S/P implantation of automatic cardioverter/defibrillator (AICD) 8. Essential hypertension 9. Hyperlipidemia, unspecified hyperlipidemia type 10. Orthostatic hypotension [facility] Phone: [phone] 867-738310-24-2023 Instructions* Patient Instructions* Zakiya Mccray LPN - 07/12/2023 9:40 AM EDT Please bring all medicines, vitamins, and herbal supplements with you when you come to the office. Prescriptions will not be filled unless you are compliant with your follow up appointments or have a follow up appointment scheduled as per instruction of your physician. Refills should be requested at the time of your visit. Follow up as scheduled with Dr.Jain Scottie sands. [facility] Work Phone: [phone] Evaluation note* Encounter Date Diagnosis Assessment Notes Treatment Notes Treatment Clinical Notes Jun, Medication monitoring encounter (ICD-10 - Z51.81) Referring Provider: Angel Griggs Diagnosis: Atrial Fibrillation INR Goal: 2-3 INR: 2.3 Warfarin Tablet Size: 5mg Tuesday: 5mg Tuesday: 5mg Tuesday: 5mg Tuesday: 5mg : 5mg Tuesday: 5mg Tuesday: 5mg Total Weekly Dose: 35 mg Continue with above regimen. Follow up in 4 weeks. Patient has been on doxycycline since last Tuesday post-procedure. Last dose tomorrow so no changes in warfarin. Patient will have a heart ablation in August. Advised patient to call clinic if instructed to hold warfarin so we can prepare instructions for his next appt. Seen by Farnaz Collazo RPh [employer] Other 10-12-2023 History of Present illness Narrative* Yanet Brennan RN - 06/30/2023 12:28 PM EDT 06/30/23 1228 Discharge Planning Living Arrangements Alone Assistance Needed Independent prior to admission, patient denies use of assitive devices for ambulation. Patient does drive. Type of Residence Private residence Home or Post Acute Services None Patient expects to be discharged to: Home Met with patient at bedside, introduced self and role on care transitions team. Address and contact information verified with patient. PCP: Dr. Amador Pharmacy: [facility] Insurance: [facility] Patient is diabetic, checks blood sugar 3-4 times a day at home, has working glucometer/supplies. Patient has declined any home going needs and plans to return home today. documented [facility]Un[facility] Work Phone: [phone]) 737-180610-12-2023 Hospital Discharge instructions* Discharge Instructions* RICHARD Felix - 06/30/2023 7:35 AM EDT Post Device Placement Instructions - Please do not lift left arm above shoulder level for 4-5 weeks - No repetitive motion or lifting heavy weight for 4-5 weeks - No driving, alcohol or making legal decisions for 24 hours - Keep wound completely dry for 7 days; may shower but keep bandage as dry as possible - No soaking in hot tubs or baths for 10 days; may sponge bath - Keep bandage on incision until seen in the office in 1 week for incision check - Allow steri strips to fall off naturally. - Please call our office if you notice any discharge or swelling around incision or fever - Resume clopidogrel 07/01/23. - Resume Metformin 07/01/23. - Please follow up with [facility] as scheduled. documented [facility] Work Phone: [phone] 496-978710-12-2023 Plan of care note* Care Plan - Ina Turner RN - 06/30/2023 4:48 AM EDT The patient's goals for the shift include pain management and free from falls. The clinical goals for the shift include comfort and rest Over the shift, the patient did not make progress toward the following goals. Barriers to progression include slower movements. Recommendations to address these barriers include education. [facility]10-12-[facility]23 Miscellaneous Notes* Care Plan - Ina Turner RN - 06/30/2023 4:48 AM EDT The patient's goals for the shift include pain management and free from falls. The clinical goals for the shift include comfort and rest Over the shift, the patient did not make progress toward the following goals. Barriers to progression include slower movements. Recommendations to address these barriers include education. documented in this encounterA[facility] Work Phone: [phone] Nurse Note* Minoo Hernandez RN - 06/29/2023 6:55 PM EDT Patient arrived on unit from laboratory [facility]. Patient is A&Ox3 on room air, lungs are clear. Patient has no open wounds and scattered bruises. Patient got ICD placed on the L chest wall. Site is clean, dry, and intact. Patient took medications whole. Patient denies pain or any discomfort. Patient lying in bed with family at bedside. Patient has no further needs at this time. Call light in reach bed i n lowest position. [facility] Work Phone: [phone] Nurse Note* Minoo Hernandez RN - 06/29/2023 6:55 PM EDT Patient arrived on unit from [facility]. Patient is A&Ox3 on room air, lungs are clear. Patient has no open wounds and scattered bruises. Patient got ICD placed on the L chest wall. Site is clean, dry, and intact. Patient took medications whole. Patient denies pain or any discomfort. Patient lying in bed with family at bedside. Patient has no further needs at this time. Call light in reach bed i n lowest position. * Leandra Lei RN - 06/29/2023 5:45 PM EDT Nursing report called to RN on 8th floor Minoo, final left chest site assessment and vital signs stable. Pt transferred to 8th floor by laboratory cure[facility] RN. * Geneva Oquendo RN - 06/29/2023 2:15 PM EDT 1415: Blood glucose result 140 documented in this [facility] Work Phone: [phone]) 315-661110-11-2023 Nurse Note* Leandra Lei RN - 06/29/2023 5:45 PM EDT Nursing report called to RN on 8th floor Minoo, final left chest site assessment and vital signs stable. Pt transferred to 8th floor by laboratory [facility] RN. [facility]10-11-[facility] Nurse Note* Geneva Oquendo RN - 06/29/2023 2:15 PM EDT 1415: Blood glucose result 140 [facility] Work Phone: [phone] 326-234910-11-2023 History and physical note* Lorene Vernon, FISH CONSERVATIONIST-[employer] - 06/29/2023 1:56 PM EDT History and Physical Pre Surgical Review (> 30 days) Subjective This is a 58 y.o. male with a PMH significant for HTN, HLD, DM, PE, CAD, ARLET, atrial fibrillation and ischemic cardiomyopathy. The patient has a history of ischemic cardiomyopathy with an EF less than 40% and documented NSVT and unexplained syncope. The presents to [facility] today, 06/29/2023 for ICD insertion for secondary prevention with Dr. Villeda. PMH: HTN, HLD, DM, PE, CAD, ARLET, ischemic cardiomyopathy, atrial fibrillation, NSVT, syncope PSH: cardiac catheterization with stent placement, neck surgery, toe amputation Family history: Mother-DM. Father-DM, CABG. Social history: Never a smoker, occasional caffeine consumption, denies alcohol and illicit drug use Review of Systems Review of Systems Constitutional: Positive for fatigue. HENT: Negative. Respiratory: Positive for shortness of breath. Cardiovascular: Positive for leg swelling. Gastrointestinal: Negative. Endocrine: Negative. Musculoskeletal: Negative. Neurological: Positive for dizziness and syncope. Psychiatric/Behavioral: Negative. Objective Allergies Allergies Allergen Reactions Paulette Inhibitors Other Hypotension Penicillins Unknown Sulfamethoxazole Unknown Home Medications Current Outpatient Medications Medication Instructions atorvastatin (Lipitor) 80 mg tablet 1 tablet, oral, Nightly clopidogrel (Plavix) 75 mg tablet 1 tablet, oral, Daily dofetilide (Tikosyn) 500 mcg capsule 1 capsule, oral, 2 times daily furosemide (Lasix) 40 mg tablet 1 tablet, oral, Daily glyBURIDE (DIABETA) 5 mg, oral, Every morning, TAKE 1 TABLET BY MOUTH EVERY MORNING AND TAKE 1 TABLET BY MOUTH ONE HOUR BEFORE LUNCH IF BLOOD SUGAR IS OVER 180 insulin aspart (NovoLOG) 100 unit/mL injection Insulin Aspart 100 UNIT/ML SOLN Quantity: 120 Refills: 0 Start : 08-Nov-2020 Active insulin glargine-yfgn (Semglee,insulin glargine-yfgn,) 100 unit/mL pen Semglee (yfgn) 100 UNIT/ML Subcutaneous Solution Quantity: 50 Refills: 0 Start : 06-Oct-2021 Active metFORMIN (Glucophage) 850 mg tablet 1 tablet, oral, 2 times daily metoprolol succinate XL (Toprol-XL) 25 mg 24 hr tablet 1 tablet, oral, 2 times daily midodrine (PROAMATINE) 10 mg, oral, 3 times daily nitroglycerin (NITROSTAT) 0.4 mg, sublingual, Every 5 min PRN, PLACE 1 TABLET UNDER THE TONGUE EVERY 5 MINUTES FOR UP TO 3 DOSES NEEDED FOR CHEST PAIN.CALL 911 IF PAIN PERSISTS. potassium chloride CR 20 mEq ER tablet 1 tablet, Daily semaglutide (Ozempic) 1 mg/dose (4 mg/3 mL) pen injector Ozempic (1 MG/DOSE) 4 MG/3ML Subcutaneous Solution Pen-injector Quantity: 9 Refills: 0 Start : 02-Jul-2021 Active warfarin (Coumadin) 5 mg tablet Take as directed by [facility] Physical Exam Physical Exam Constitutional: General: He is not in acute distress. Cardiovascular: Rate and Rhythm: Rhythm irregular. Comments: Afib, HR 95. Abdominal: General: Bowel sounds are normal. Musculoskeletal: Right lower leg: Edema present. Left lower leg: Edema present. Skin: Comments: Bilateral LE discoloration. Neurological: General: No focal deficit present. Mental Status: He is alert and oriented to person, place, and time. Psychiatric: Mood and Affect: Mood normal. Behavior: Behavior normal. Airway/Sedation Assessment Mouth Opening OK yes Neck Flexibility OK yes Loose Teeth No Oropharyngeal Classification Grade II ASA PS Classification ASA III - Patient with severe systemic disease Sedation Plan Moderate Risks, benefits, and alternatives discussed with patient. ERAS (Enhanced Recovery After Surgery): ERAS Patient: No Consent: COVID-19 Consent: COVID-19 Risk Consent Surgeon has reviewed miller risks related to the risk of neil COVID-19 and if they contract COVID-19 what the risks are. RICHARD Felix [facility] Work Phone: [phone] History and physical note* RICHARD Felix - 06/29/2023 1:56 PM EDT History and Physical Pre Surgical Review (> 30 days) Subjective This is a 58 y.o. male with a PMH significant for HTN, HLD, DM, PE, CAD, ARLET, atrial fibrillation and ischemic cardiomyopathy. The patient has a history of ischemic cardiomyopathy with an EF less than 40% and documented NSVT and unexplained syncope. The presents to [facility] today, 06/29/2023 for ICD insertion for secondary prevention with Dr. Villeda. PMH: HTN, HLD, DM, PE, CAD, ARLET, ischemic cardiomyopathy, atrial fibrillation, NSVT, syncope PSH: cardiac catheterization with stent placement, neck surgery, toe amputation Family history: Mother-DM. Father-DM, CABG. Social history: Never a smoker, occasional caffeine consumption, denies alcohol and illicit drug use Review of Systems Review of Systems Constitutional: Positive for fatigue. HENT: Negative. Respiratory: Positive for shortness of breath. Cardiovascular: Positive for leg swelling. Gastrointestinal: Negative. Endocrine: Negative. Musculoskeletal: Negative. Neurological: Positive for dizziness and syncope. Psychiatric/Behavioral: Negative. Objective Allergies Allergies Allergen Reactions Paulette Inhibitors Other Hypotension Penicillins Unknown Sulfamethoxazole Unknown Home Medications Current Outpatient Medications Medication Instructions atorvastatin (Lipitor) 80 mg tablet 1 tablet, oral, Nightly clopidogrel (Plavix) 75 mg tablet 1 tablet, oral, Daily dofetilide (Tikosyn) 500 mcg capsule 1 capsule, oral, 2 times daily furosemide (Lasix) 40 mg tablet 1 tablet, oral, Daily glyBURIDE (DIABETA) 5 mg, oral, Every morning, TAKE 1 TABLET BY MOUTH EVERY MORNING AND TAKE 1 TABLET BY MOUTH ONE HOUR BEFORE LUNCH IF BLOOD SUGAR IS OVER 180 insulin aspart (NovoLOG) 100 unit/mL injection Insulin Aspart 100 UNIT/ML SOLN Quantity: 120 Refills: 0 Start : 08-Nov-2020 Active insulin glargine-yfgn (Semglee,insulin glargine-yfgn,) 100 unit/mL pen Semglee (yfgn) 100 UNIT/ML Subcutaneous Solution Quantity: 50 Refills: 0 Start : 06-Oct-2021 Active metFORMIN (Glucophage) 850 mg tablet 1 tablet, oral, 2 times daily metoprolol succinate XL (Toprol-XL) 25 mg 24 hr tablet 1 tablet, oral, 2 times daily midodrine (PROAMATINE) 10 mg, oral, 3 times daily nitroglycerin (NITROSTAT) 0.4 mg, sublingual, Every 5 min PRN, PLACE 1 TABLET UNDER THE TONGUE EVERY 5 MINUTES FOR UP TO 3 DOSES NEEDED FOR CHEST PAIN.CALL 911 IF PAIN PERSISTS. potassium chloride CR 20 mEq ER tablet 1 tablet, Daily semaglutide (Ozempic) 1 mg/dose (4 mg/3 mL) pen injector Ozempic (1 MG/DOSE) 4 MG/3ML Subcutaneous Solution Pen-injector Quantity: 9 Refills: 0 Start : 02-Jul-2021 Active warfarin (Coumadin) 5 mg tablet Take as directed by [facility] Physical Exam Physical Exam Constitutional: General: He is not in acute distress. Cardiovascular: Rate and Rhythm: Rhythm irregular. Comments: Afib, HR 95. Abdominal: General: Bowel sounds are normal. Musculoskeletal: Right lower leg: Edema present. Left lower leg: Edema present. Skin: Comments: Bilateral LE discoloration. Neurological: General: No focal deficit present. Mental Status: He is alert and oriented to person, place, and time. Psychiatric: Mood and Affect: Mood normal. Behavior: Behavior normal. Airway/Sedation Assessment Mouth Opening OK yes Neck Flexibility OK yes Loose Teeth No Oropharyngeal Classification Grade II ASA PS Classification ASA III - Patient with severe systemic disease Sedation Plan Moderate Risks, benefits, and alternatives discussed with patient. ERAS (Enhanced Recovery After Surgery): ERAS Patient: No Consent: COVID-19 Consent: COVID-19 Risk Consent Surgeon has reviewed miller risks related to the risk of neil COVID-19 and if they contract COVID-19 what the risks are. Lorene Vernon APRN-ALIREZA documented in this encounterA[facility] Work Phone: [phone]) 562-511610-02-2023 Evaluation note* Encounter Date Diagnosis Assessment Notes Treatment Notes Treatment Clinical Notes Jun, Medication monitoring encounter (ICD-10 - Z51.81) Referring Provider: Angel Griggs Diagnosis: Atrial Fibrillation INR Goal: 2-3 INR: 2.0 Warfarin Tablet Size: 5mg Tuesday: 5mg Tuesday: 5mg Tuesday: 5mg Tuesday: 5mg : 5mg Tuesday: 5mg Tuesday: 5mg Total Weekly Dose: 35 mg Continue with above regimen. Follow up in 2 weeks, 1 week post-procedure. Patient to have pacemaker/defibri llator procedure on Friday 06/29 (rescheduled from 06/13), requiring a 5-day hold (please refer to telephone encounter). Patient held 1 dose prior to procedure being rescheduled. Patient was instructed to take an additional 1/2 tablet at that time. Patient reports missing a dose of warfarin on Tuesday. Likely cause of INR being on lower end of normal. Seen by Jama Lopez PharmD [employer] Other 09-18-2023 Evaluation note* Encounter Date Diagnosis Assessment Notes Treatment Notes Treatment Clinical Notes May, Medication monitoring encounter (ICD-10 - Z51.81) Referring Provider: Agnel Griggs Diagnosis: Atrial Fibrillation INR Goal: 2-3 INR: 2.3 Warfarin Tablet Size: 5mg Tuesday: 5mg Tuesday: 5mg Tuesday: 5mg Tuesday: 5mg : 5mg Tuesday: 5mg Tuesday: 5mg Total Weekly Dose: 35 mg Continue with above regimen. Follow up in 2 weeks, 1 week post-procedure. Patient to have pacemaker/defibr illator procedure on Wednesday 06/13. Patient states that at his surgical consult he was instructed to hold warfarin for 5 days however when he was scheduled for the procedure he thinks he was told to hold warfarin for 3 days. Patient has yet to recieve pre-surgical paperwork with instructions. Patient provided with procedure calendars for both 5-days and 3-days. Patient will call with more details. Will attempt to reach surgeon's office, Dr. Villeda at in [place] to clarify. Seen by Jama Lopez PharmD [employer] Other 09-06-2023 Evaluation note* Encounter Date Diagnosis Assessment Notes Treatment Notes Treatment Clinical Notes May, Medication monitoring encounter (ICD-10 - Z51.81) Referring Provider: Angel Griggs Diagnosis: Atrial Fibrillation INR Goal: 2-3 INR: 2.4 Warfarin Tablet Size: 5mg Tuesday: 5mg Tuesday: 5mg Tuesday: 5mg Tuesday: 5mg : 5mg Tuesday: 5mg Tuesday: 5mg Total Weekly Dose: 35 mg Continue with above regimen. Follow up in 2 weeks. Patient reports they have been taken off dofetilide and their furosemide is on hold. Patient instructed to notify [facility] if they begin having fluid overload/swelling and is instructed to resume furosemide. Patient reports they will be having a defibrillation procedure, tentatively on 06/13, requiring a 5 day hold of warfarin and clopidogrel at in [place] with Dr. Villeda. Patient states they need confirmation from the surgeon of this and will call [facility]. Seen by Sanjuana Armstrong, PharmD/Jama Lopez, BernieD [employer] Other 08-24-2023 Evaluation note* Encounter Date Diagnosis Assessment Notes Treatment Notes Treatment Clinical Notes Apr, Medication monitoring encounter (ICD-10 - Z51.81) Referring Provider: Angel Griggs Diagnosis: Atrial Fibrillation INR Goal: 2-3 INR: 3.6 Warfarin Tablet Size: 5mg Tuesday: 5mg Tuesday: 7.5mg Tuesday: 5mg Tuesday: 5mg : 5mg Tuesday: 5mg Tuesday: 5mg Total Weekly Dose: 37.5 mg Hold for 1 day, then begin plan above, a 7% decrease. Follow up in 2 weeks. Patient reports no dietary or lifestyle changes and reports taking all doses as instructed. Reports no medication changes aside from decreasing his dofetilide to 375mcg BID which has no listed interaction with warfarin per [employer]. Patient reports no abnormal bruising or bleeding. Seen by Letty Shaw, [facility] [employer] Other 08-14-2023 Evaluation note* Encounter Date Diagnosis Assessment Notes Treatment Notes Treatment Clinical Notes Apr, Medication monitoring encounter (ICD-10 - Z51.81) Referring Provider: Angel Griggs Diagnosis: Atrial Fibrillation INR Goal: 2-3 INR: 3.7 Warfarin Tablet Size: 5mg Fabiano: 5mg Tuesday: 7.5mg Tuesday: 5mg Tuesday: 5mg : 5mg Tuesday: 5mg Tuesday: 5mg Total Weekly Dose: 37.5 mg Hold for 1 day, then continue with the plan above. Follow up in 1 week. Patient comes in today immediately after a chemical stress test. He mentions he has not eaten anything since yesterday afternoon. This could be potential cause of supratherapeutic INR. Patient reports no dietary or lifestyle changes and no missed doses. Reports no medication changes aside from increasing his midodrine to 10mg TID which has no listed interaction with warfarin per [employer]. Patient reports no abnormal bruising or bleeding. Seen by Teddy Lea, PharmD Candidate/[facility] [employer] Other 07-31-2023 Evaluation note* Encounter Date Diagnosis Assessment Notes Treatment Notes Treatment Clinical Notes Mar, Medication monitoring encounter (ICD-10 - Z51.81) Referring Provider: Angel Griggs Diagnosis: Atrial Fibrillation INR Goal: 2-3 INR: 3.0 Warfarin Tablet Size: 5mg Tuesday: 5mg Tuesday: 7.5mg Tuesday: 5mg Tuesday: 5mg : 5mg Tuesday: 5mg Tuesday: 5mg Total Weekly Dose: 37.5 mg Continue the plan above. Follow up in 2 weeks. Patient reports no changes in medication or diet. Patient denies any abnormal bruising or bleeding. Patient reports no missed doses this visit. Seen by Bernie RodriguezD Candidate/Jama Lopez PharmD [employer] Other 07-17-2023 Progress note Author Derrek Tay [facility] April 04, 2023 11:33am Note Date/Time April 04, 2023 11:1 5am [facility] [address] [place] [address] Hospitalist Progress Note Signed Patient: Harriett Thakkar MR#: [id number] : 1965 Acct:[id number] Age/Sex: 58 / M Adm Date: 3 Loc: Room: 4H4043-1 Type: ADM INOo Attending Dr: Derrek Tay DO Copies to: ~ Date of Service: 04/04/2023 Subjective Subjective Narrative: Seen and evaluated, patient denies any overnight issues. He does state that he is not always compliant with his blood pressure medication, mainly his Midodrine, he states that his BP is often 130-140 in the morning and he skips his AM dose, then he often forgets to take his lunchtime dose and typically is compliant with his nighttime dose. He does keep track of his blood pressures on his phone and takes orthostatics everyday. There are numerous blood pressure readings which are elevated (>140 systolic) while sitting and then drop to 80-100 systolic upon standing, there is no pulse rate documented. Had long discussion about orthostatic BP, midodrine, and compliance. Exam Physical Exam Vital Signs: Temp Pulse Resp BP Pulse Ox O2 Del Method 97.5 F L 86 20 108/70 96 Room Air 04/04/23 05:11 04/04/23 08:53 04/04/23 08:53 04/04/23 08:53 04/04/23 08:53 04/04/23 08:53 Narrative: General: Awake alert, no acute distress HEENT: head atraumatic, normocephalic, moist mucous membranes Neck: supple no masses, no lymphadenopathy CVS: regular rate and rhythm, no murmurs or gallops Respiratory: clear to auscultation bilaterally, no wheezing or crackles, symmetric expansion GI: soft, nondistended, nontender, positive bowel sounds with no organomegaly Extremity: moves all extremities, no restrictions of movements, no calf tenderness, no edema Neuro: AOx3, CN II-VII intact. Moves all extremities in all planes of motion. Skin: dry, intact no rashes or lesions Objective Lab Results 04/04/23 05:42 04/04/23 05:42 Meds Allergies and Active Meds Allergies Sulfa (Sulfonamide Antibiotics) Allergy (Unknown, Verified 04/02/23 09:42) Unknown Reaction Penicillins Allergy (Verified 04/02/23 09:42) Unknown Reaction Active Meds: Active Medications Generic Name Dose Route Start Last Admin Trade Name Freq PRN Reason Stop Dose Admin Acetaminophen 650 mg 04/02/23 15:32 Acetaminophen 325 Mg Tablet PO 04/01/24 15:31 Q6HR PRN Fever Atorvastatin Calcium 80 mg 04/02/23 21:00 04/03/23 21:25 Atorvastatin 80 Mg Tablet PO 04/01/24 20:59 80 mg QPM RADHA Administration Clopidogrel Bisulfate 75 mg 04/03/23 09:00 04/04/23 08:46 Clopidogrel Bisulfate 75 Mg Tablet PO 04/02/24 08:59 75 mg DAILY RADHA Administration Dextrose 0 gm 04/02/23 15:37 Dextrose 50% In Water 25 Gm/50 Ml Syringe IV-PUSH 04/01/24 15:36 PRN PRN Hypoglycemia Diphenhydramine HCl 25 mg 04/02/23 15:32 Diphenhydramine 25 Mg Capsule PO 04/01/24 15:31 Q8H PRN Severe rash or Itching Docusate Sodium 100 mg 04/02/23 21:00 04/04/23 08:47 Docusate 100 Mg Capsule PO 04/01/24 20:59 Not Given BID RADHA Dofetilide 500 mcg 04/02/23 21:00 04/04/23 08:46 Dofetilide 500 Mcg Capsule PO 04/01/24 20:59 500 mcg BID RADHA Administration Furosemide 40 mg 04/04/23 09:00 04/04/23 08:46 Furosemide 40 Mg Tablet PO 04/03/24 08:59 40 mg DAILY RADHA Administration Glucose 0 gm 04/02/23 15:37 Dextrose 40% Gel 15 Gm Tube PO 04/01/24 15:36 PRN PRN Hypoglycemia Guaifenesin 600 mg 04/02/23 15:32 Guaifenesin 600 Mg Tab.Er.12h PO 04/01/24 15:31 BID PRN Cough Hydralazine HCl 10 mg 04/02/23 15:32 Hydralazine 20 Mg/Ml Vial IV-PUSH 04/01/24 15:31 Q4H PRN Hypertension Magnesium Sulfate 2 gm in 50 mls @ 25 mls/hr 04/02/23 15:32 Magnesium Sulf 2gm-*Swfi* IV 04/01/24 15:31 DAILY PRN Magnesium Level < 1.5 Insulin Aspart 0 units 04/02/23 17:00 04/03/23 21:26 Insulin Aspart 300 Units/3 Ml Insuln.Pen SUBCUT 04/01/24 16:59 3 units TID.WM.HS RADHA Administration Protocol Insulin Glargine 50 units 04/03/23 09:00 04/04/23 08:53 Insulin Glargine 300 Units/3 Ml Insuln.Pen SUBCUT 04/02/24 08:59 50 units DAILY RADHA Administration Labetalol HCl 5 mg 04/02/23 15:32 Labetalol 100 Mg/20 Ml Vial IV-PUSH 04/01/24 15:31 Q4H PRN Hypertension Metformin HCl 850 mg 04/02/23 17:00 04/04/23 08:47 Metformin 850 Mg Tablet PO 04/01/24 16:59 850 mg BID.WITH.MEALS RADHA Administration Metoprolol Succinate 25 mg 04/02/23 21:00 04/04/23 08:47 Metoprolol Succinate 25 Mg Tab.Er.24h PO 04/01/24 20:59 25 mg BID RADHA Administration Midodrine 5 mg 04/04/23 06:00 04/04/23 05:10 Midodrine 5 Mg Tablet PO 04/03/24 05:59 5 mg Q12H RADHA Administration Morphine Sulfate 2 mg 04/02/23 15:32 Morphine Sulfate 2 Mg/Ml Vial IV-PUSH Q4H PRN Pain Scale 8 - 10 Nitroglycerin 0.4 mg 04/02/23 10:46 Nitroglycerin 0.4 Mg Tab.Subl SUBLINGUAL 04/01/24 10:45 Q5M PRN Chest Pain Ondansetron HCl 4 mg 04/02/23 15:32 Ondansetron 4 Mg/2 Ml Vial IV-PUSH 04/01/24 15:31 Q8H PRN Nausea And Vomiting Potassium Chloride 20 meq 04/03/23 09:00 04/04/23 08:46 Potassium Chloride Er 10 Meq Capsule.Er PO 04/02/24 08:59 20 meq DAILY RADHA Administration Potassium Chloride 20 meq 04/03/23 09:00 Potassium Chloride Er 20 Meq Tab.Er.Prt PO 04/02/24 08:59 DAILY PRN Hypokalemia Warfarin Sodium 1 each 04/02/23 17:02 Warfarin - Pharmacy Dosing MISCELLANE 04/01/24 17:01 ONCE PRN ZZ.Pharmacy Consult Protocol Zolpidem Tartrate 5 mg 04/02/23 15:32 Zolpidem 5 Mg Tablet PO 09/29/23 15:31 HS PRN Sleep A&P - Hospitalist Assessment/Plan (1) Orthostatic hypotension: Plan: - Continue home dose of midodrine, patient is not compliant with home regimen due to elevated pressure in the AM and skipping lunchtime dose. - Carotid US performed, formal read pending (2) Paroxysmal atrial fibrillation: Plan: - Currently NSR, continue home dose of metoprolol (3) Diabetes mellitus: Plan: - Continue glucose checks, hold home metformin, continue home insulin dose - A1C 7.5 (4) CKD (chronic kidney disease) stage 3, GFR 30-59 ml/min: (5) Dyspnea: (6) Chest pressure: Plan: - Echocardiogram pending with cardiology following, further ischemic workup pending (7) Hyperlipidemia: Plan: lipid panel is appropriate, continue home meds Documented By: Derrek Tay DO 04/04/23 1111 Signed By: <Electronically signed by Derrek Tay, DO> 04/04/23 1133 [facility] Work Phone: 1(144) 271-171807-16-2023 Progress note Author Toy Yeager [facility] April 03, 2023 1:05pm Note Date/Time April 03, 2023 1:06 pm [facility] [address] [place] [address] Hospitalist Progress Note Signed Patient: Harriett Thakkar MR#: [id number] : 1965 Acct:[id number] Age/Sex: 58 / M Adm Date: 3 Loc: Room: [address] [place] [address] Type: ADM INOo Attending Dr: Toy Yeager MD Copies to: ~ Date of Service: 04/03/2023 Subjective Subjective Narrative: 04/03/2023 Patient was seen at bedside. He is resting comfortably. He was having his lunch. No chest pain or pressure. He was seen by the cardiology. He agrees with the evaluation plan. Patient will have carotid Doppler ultrasound and echocardiogram tomorrow morning. On Admission: Patient is a 58-year-old morbidly obese gentleman with history of atrial fibrillation currently on Coumadin, coronary artery disease status post PCI in 2019 currently on Plavix, poorly controlled diabetes mellitus with last A1c 7.9,medical noncompliance, hyperlipidemia, hypertension with chronic kidney disease came to the emergency department for ongoing chest pressure and uncomfortableness over the neck area. He also complained about heaviness of thebilateral arms. Patient was shopping last night at [employer] and started feeling above symptoms which are very similar to the heart attack that he had in 2019. Patient rested last night but then woke up with a similar symptoms in felt like coming to the emergency department to have the cardiac evaluation done. In the emergency department his cardiac enzymes were negative. No ST-T changes, vital signs were stable. Laboratory results were all within the normal limit except he has mildly elevated creatinine with 1.46. Patient received 1 L of IV fluid, aspirin and nitroglycerin he was sent to the floor for further management. Patient denies any lightheadedness, diaphoresis. However he felt short of breath and tachycardia. Exam Physical Exam Vital Signs: Temp Pulse Resp BP Pulse Ox O2 Del Method 97.9 F 71 18 136/90 97 Room Air 04/03/23 12:00 04/03/23 12:00 04/03/23 12:00 04/03/23 12:00 04/03/23 12:00 04/03/23 12:00 Const General: cooperative, no acute distress and well hydrated Orientation: alert, awake and oriented x3 HEENT Head: normocephalic and atraumatic Face and sinus: normal facial exam and sinuses nontender Mouth: oral mucosae normal Eyes Conjunctivae: conjunctivae normal Sclera: sclerae normal Neck Thyroid: thyroid normal Carotids: normal carotid upstroke Lymphatic: no lymphadenopathy noted Resp Effort & Inspection: normal respiratory effort, able to speak in complete sentences and symmetric chest movement Auscultation: clear to auscultation bilaterally Cardio Palpation: normal PMI Rate: regular rate Rhythm: regular rhythm Heart Sounds: S1 normal and S2 normal Pulses: dorsalis pedis present GI Palpation: soft and no hepatosplenomegaly Auscultation: normal bowel sounds Skin General: no rashes or lesions noted and turgor normal Neuro General: tone normal and moves all extremities Speech: speech normal Gait: normal gait Motor: muscle tone normal throughout Sensory Exam: no sensory deficits noted Extrem General: full ROM Psych Appearance: grossly normal Mental Status: mental status grossly normal Mood: congruent mood Affect: normal affect Attitude: cooperative Judgment: judgment good Objective Lab Results 04/03/23 05:52 04/03/23 05:52 Meds Allergies and Active Meds Allergies Sulfa (Sulfonamide Antibiotics) Allergy (Unknown, Verified 04/02/23 09:42) Unknown Reaction Penicillins Allergy (Verified 04/02/23 09:42) Unknown Reaction Active Meds: Active Medications Generic Name Dose Route Start Last Admin Trade Name Freq PRN Reason Stop Dose Admin Acetaminophen 650 mg 04/02/23 15:32 Acetaminophen 325 Mg Tablet PO 04/01/24 15:31 Q6HR PRN Fever Atorvastatin Calcium 80 mg 04/02/23 21:00 04/02/23 21:48 Atorvastatin 80 Mg Tablet PO 04/01/24 20:59 80 mg QPM RADHA Administration Clopidogrel Bisulfate 75 mg 04/03/23 09:00 04/03/23 08:15 Clopidogrel Bisulfate 75 Mg Tablet PO 04/02/24 08:59 75 mg DAILY RADHA Administration Dextrose 0 gm 04/02/23 15:37 Dextrose 50% In Water 25 Gm/50 Ml Syringe IV-PUSH 04/01/24 15:36 PRN PRN Hypoglycemia Diphenhydramine HCl 25 mg 04/02/23 15:32 Diphenhydramine 25 Mg Capsule PO 04/01/24 15:31 Q8H PRN Severe rash or Itching Docusate Sodium 100 mg 04/02/23 21:00 04/03/23 08:15 Docusate 100 Mg Capsule PO 04/01/24 20:59 100 mg BID RADHA Administration Dofetilide 500 mcg 04/02/23 21:00 04/03/23 08:15 Dofetilide 500 Mcg Capsule PO 04/01/24 20:59 500 mcg BID RADHA Administration Furosemide 40 mg 04/04/23 09:00 Furosemide 40 Mg Tablet PO 04/03/24 08:59 DAILY RADHA Glucose 0 gm 04/02/23 15:37 Dextrose 40% Gel 15 Gm Tube PO 04/01/24 15:36 PRN PRN Hypoglycemia Guaifenesin 600 mg 04/02/23 15:32 Guaifenesin 600 Mg Tab.Er.12h PO 04/01/24 15:31 BID PRN Cough Hydralazine HCl 10 mg 04/02/23 15:32 Hydralazine 20 Mg/Ml Vial IV-PUSH 04/01/24 15:31 Q4H PRN Hypertension Magnesium Sulfate 2 gm in 50 mls @ 25 mls/hr 04/02/23 15:32 Magnesium Sulf 2gm-*Swfi* IV 04/01/24 15:31 DAILY PRN Magnesium Level < 1.5 Insulin Aspart 0 units 04/02/23 17:00 04/03/23 12:24 Insulin Aspart 300 Units/3 Ml Insuln.Pen SUBCUT 04/01/24 16:59 4 units TID.WM.HS RADHA Administration Protocol Insulin Glargine 50 units 04/03/23 09:00 04/03/23 08:17 Insulin Glargine 300 Units/3 Ml Insuln.Pen SUBCUT 04/02/24 08:59 50 units DAILY RADHA Administration Labetalol HCl 5 mg 04/02/23 15:32 Labetalol 100 Mg/20 Ml Vial IV-PUSH 04/01/24 15:31 Q4H PRN Hypertension Metformin HCl 850 mg 04/02/23 17:00 04/03/23 08:15 Metformin 850 Mg Tablet PO 04/01/24 16:59 850 mg BID.WITH.MEALS RADHA Administration Metoprolol Succinate 25 mg 04/02/23 21:00 04/03/23 08:15 Metoprolol Succinate 25 Mg Tab.Er.24h PO 04/01/24 20:59 25 mg BID RADHA Administration Midodrine 5 mg 04/02/23 21:00 04/03/23 08:15 Midodrine 5 Mg Tablet PO 04/01/24 20:59 5 mg BID RADHA Administration Morphine Sulfate 2 mg 04/02/23 15:32 Morphine Sulfate 2 Mg/Ml Vial IV-PUSH Q4H PRN Pain Scale 8 - 10 Nitroglycerin 0.4 mg 04/02/23 10:46 Nitroglycerin 0.4 Mg Tab.Subl SUBLINGUAL 04/01/24 10:45 Q5M PRN Chest Pain Ondansetron HCl 4 mg 04/02/23 15:32 Ondansetron 4 Mg/2 Ml Vial IV-PUSH 04/01/24 15:31 Q8H PRN Nausea And Vomiting Potassium Chloride 20 meq 04/03/23 09:00 04/03/23 08:15 Potassium Chloride Er 10 Meq Capsule.Er PO 04/02/24 08:59 20 meq DAILY RADHA Administration Potassium Chloride 20 meq 04/03/23 09:00 Potassium Chloride Er 20 Meq Tab.Er.Prt PO 04/02/24 08:59 DAILY PRN Hypokalemia Sodium Chloride 0 ml 04/02/23 22:00 04/03/23 05:44 Sodium Chloride 0.9 % 10 Ml Syringe IV-PUSH 04/01/24 21:59 10 ml QSHIFT RADHA Administration Warfarin Sodium 1 each 04/02/23 17:02 Warfarin - Pharmacy Dosing MISCELLANE 04/01/24 17:01 ONCE PRN ZZ.Pharmacy Consult Protocol Zolpidem Tartrate 5 mg 04/02/23 15:32 Zolpidem 5 Mg Tablet PO 09/29/23 15:31 HS PRN Sleep A&P - Hospitalist Assessment/Plan (1) Paroxysmal atrial fibrillation: (2) Diabetes mellitus: (3) CKD (chronic kidney disease) stage 3, GFR 30-59 ml/min: (4) Dyspnea: (5) Chest pressure: (6) Hyperlipidemia: Plan 04/03/2023 Patient was evaluated by cardiology this morning. We already ordered echocardiogram. He will get also carotid Doppler ultrasound to see if it is thecause of his dizziness. Depending on the echo finding if there is focal hypokinesia or low ejection fraction then he may go for cardiac cath. Coumadin has been on hold in preparation for possible cardiac catheter tomorrow. Otherwise we will continue with current medical therapy and plan. Patient seemsto be doing well, vital signs are stable. Lab work is within the normal limit. PLAN ON ADMISSION: 04/02/2023 Patient be admitted to medical telemetry for closer monitoring of cardiorespiratory and neuro status. We will cycle cardiac enzymes. He will have an EKG in the morning. I have also ordered an echocardiogram. Patient hadlast echocardiogram in 2019. We like to evaluate global echo hypokinesia and left ventricular ejection fraction. Diabetes will be managed with the long-acting insulin and correcting sliding scale. Daily INR will be drawn. Pharmacywill manage his Coumadin. We will keep INR between 2-3. His antiarrhythmic medications along with other home medications will be resumed. GI prophylax will be done with Protonix. DVT prophylaxis be done with SCD. CODE STATUS full. Total time spent on this admission encounter was about 57 minutes. Documented By: Toy Yeager MD 04/03/23 1302 Signed By: <Electronically signed by Toy Yeager MD> 04/03/23 0131 [facility] Work Phone: 1(438) 201-222607-16-2023 Consult note Author [place] Em [facility] April 03, 2023 12:31pm Note Date/Time April 03, 2023 12:2 1pm [facility] [address] [place] [address] Cardiology Consult Note Signed Patient: Harriett Thakkar MR#: [id number] : 1965 Acct:[id number] Age/Sex: 58 / M Adm Date: 3 Loc: Room: 4F1484-5 Type: ADM INOo Attending Dr: Toy Yeager MD Copies to: MD Dallas Elizondo MD Mushtaq Mahmood, MD~ Cardiology HPI History of Present Illness Consult Date: 04/03/23 Reason for Consult: Cardiac consultation requested for evaluation for shortness of breath HPI: Mr. Thakkar is a 58 year old male with known history of coronary artery disease and prior PCI to the LAD last in 2019, history of atrial fibrillation maintaining sinus rhythm with dofetilide presented to hospital complaining of decreased exercise tolerance, dyspnea on exertion and episode of chest heavinessand shoulder pressure while he was shopping at [employer]. He rested with improvement of his symptoms. He recently has noticed decreased exercise tolerance and dyspnea on exertion. He also reported several bouts of orthostatic hypotension, lightheadedness and dizziness. He is unsure how some of the his symptoms to his previous presentation with angina and ischemic event. Currently he feels better. He denies chest pain. He does report a previous history of orthostatic hypotension and had been using midodrine intermittently. Review of Systems Review of Systems All other systems reviewed & are negative unless noted below or in HPI Eyes Eyes: Reports system reviewed and no additional complaints, except as documented ENT Ears, Nose, Mouth, and Throat: Reports system reviewed and no additional complaints, except as documented Cardiovascular Cardiovascular: Reports system reviewed and no additional complaints, except as documented Respiratory Respiratory: Reports system reviewed and no additional complaints, except as documented Gastrointestinal Gastrointestinal: Reports system reviewed and no additional complaints, except as documented Genitourinary Genitourinary: Reports system reviewed and no additional complaints, except as documented Musculoskeletal Musculoskeletal: Reports system reviewed and no additional complaints, except asdocumented Integumentary/Breasts Skin/Breast: Reports system reviewed and no additional complaints, except as documented Neurologic Neurologic: Reports system reviewed and no additional complaints, except as documented Psychiatric Psychiatric: Reports system reviewed and no additional complaints, except as documented Endocrine Endocrine: Reports system reviewed and no additional complaints, except as documented Hematologic/Lymphatic Hematologic/Lymphatic: Reports system reviewed and no additional complaints, except as documented Allergic/Immunologic Allergic/Immunologic: Reports system reviewed and no additional complaints, except as documented PMFSH Source: Unable to Obtain Vaccinated for COVID-19?: Yes Medical History (Updated 04/02/23 @ 17:14 by Toy Yeager MD) A-fib Amputated toe of left foot Amputated toe of right foot 2 toes CAD (coronary artery disease) Diabetes mellitus, type 2 Hyperlipidemia Surgical History History of cardiac catheterization History of coronary angioplasty with insertion of stent History of phacoemulsification of cataract of both eyes with intraocular lens implantation S/P cervical spinal fusion Family History Father Diabetes CAD (coronary artery disease) Pulmonary embolism Mother Diabetes Brother Hypertension Social History Smoking Status: Never smoker Substance Use Type: None Social History Comments: 2 grand daughters Meds Medications and Allergies Allergies Sulfa (Sulfonamide Antibiotics) Allergy (Unknown, Verified 04/02/23 09:42) Unknown Reaction Penicillins Allergy (Verified 04/02/23 09:42) Unknown Reaction Home Medications insulin aspart U-100 100 unit/mL subcutaneous solution See Rx Instructions .Route .COMPLEX diabetes 08/04/17 [History Confirmed 04/02/23] metformin 850 mg tablet 850 mg PO BID diabetes 08/04/17 [History Confirmed 04/02/23] atorvastatin 80 mg tablet 80 mg PO QPM 30 days #30 tabs 11/09/19 [Rx Confirmed 04/02/23] dofetilide 500 mcg capsule 500 mcg PO BID 30 days #60 caps 11/12/19 [Rx Confirmed 04/02/23] nitroglycerin 0.4 mg sublingual tablet (Nitrostat) 0.4 mg sublingual Q5-15M PRN Angina 30 days #25 tabs 11/12/19 [Rx Confirmed 04/02/23] clopidogrel 75 mg tablet 75 mg PO DAILY 07/04/20 [History Confirmed 04/02/23] furosemide 20 mg tablet 60 mg PO DAILY 07/04/20 [History Confirmed 04/02/23] metoprolol succinate 25 mg capsule sprinkle, ext. release 24 hr 25 mg PO BID 07/04/20 [History Confirmed 04/02/23] insulin glargine-yfgn 100 unit/mL subcutaneous solution (Semglee (insulin glargine-yfgn)) 50 unit subcut DAILY 03/01/22 [History Confirmed 04/02/23] midodrine 2.5 mg tablet 5 mg PO BID 03/01/22 [History Confirmed 04/02/23] potassium chloride 10 mEq capsule,extended release 20 meq PO DAILY 03/01/22 [History Confirmed 04/02/23] semaglutide 1 mg/dose (4 mg/3 mL) subcutaneous pen injector (Ozempic) 2 mg subcut QWEEK 03/01/22 [History Confirmed 04/02/23] warfarin 5 mg tablet 5 mg PO DAILY 03/01/22 [History Confirmed 04/02/23] warfarin 7.5 mg tablet 7.5 mg PO DIRECTED 12/15/22 [History Confirmed 04/02/23] Exam Physical Exam Vital Signs: Temp Pulse Resp BP Pulse Ox O2 Del Method 98.4 F 81 18 116/77 94 L Room Air 04/03/23 08:00 04/03/23 08:00 04/03/23 08:00 04/03/23 08:00 04/03/23 08:00 04/03/23 08:00 Const General: cooperative, comfortable, no acute distress and well developed HEENT Head: atraumatic Mouth: oral mucosae normal Eyes General: appearance normal, both eyes and all related structures Pupils: PERRL Neck Neck: normal visual inspection, supple and no lymphadenopathy noted Neck mass: No Thyroid: thyroid normal Carotids: normal carotid upstroke Chest Chest palpation & inspection: normal inspection of the chest Resp Effort & Inspection: normal respiratory effort Auscultation: clear to auscultation bilaterally Cardio Palpation: normal PMI Rate: regular rate Rhythm: regular rhythm Heart Sounds: S1 normal and S2 normal GI Palpation: soft and no hepatosplenomegaly Percussion: normal to percussion Auscultation: normal bowel sounds Skin General: no rashes or lesions noted and dry skin Neuro General: patient alert, patient awake, patient oriented x3, tone normal and moves all extremities Extrem General: full ROM, capillary refill normal and no clubbing, cyanosis or edema Psych Mental Status: mental status grossly normal Results Labs 04/03/23 05:52 04/03/23 05:52 Lab results: Cardiac Enzymes 04/02/23 04/02/23 04/02/23 Range/Units 15:55 18:59 21:52 AST (13-39) U/L Total Creatine Kinase 98 97 97 (30-223) U/L 04/03/23 04/03/23 Range/Units 03:53 05:52 AST 23 (13-39) U/L Total Creatine Kinase 101 (30-223) U/L Lipids 04/03/23 Range/Units 05:52 Triglycerides 182 H (0-149) mg/dL Cholesterol 69 L (140-200) mg/dL HDL Cholesterol 16 L (23-92) mg/dL Cholesterol/HDL Ratio 4.3 (<5.0) CBC 04/03/23 Range/Units 05:52 RBC 4.34 (3.90-5.60) X10E6/uL Hgb 13.8 (13.0-17.0) g/dL Hct 39.0 (38.8-50.0) % Plt Count 132 L (150-450) x10E3/uL Neut # (Auto) 4.3 (1.8-7.7) x10E3/uL Lymph # (Auto) 1.6 (1.00-4.8) x10E3/uL Maury # (Auto) 0.7 (0.0-0.8) x10E3/uL Eos # (Auto) 0.2 (0.0-0.45) x10E3/uL Baso # (Auto) 0.1 (0.0-0.2) x10E3/uL Comprehensive Metabolic Panel 04/03/23 Range/Units 05:52 Sodium 138 (136-145) mmol/L Potassium 3.7 (3.5-5.1) mmol/L Chloride 103 (98-107) mmol/L Carbon Dioxide 27.8 (21.0-31.0) mmol/L BUN 28 H (7-25) mg/dL Creatinine 1.05 (0.70-1.30) mg/dL Glucose 175 H (70-100) mg/dL Calcium 8.0 L (8.6-10.3) mg/dL AST 23 (13-39) U/L ALT 24 (7-52) U/L Alkaline Phosphatase 73 (34-104) U/L Total Protein 5.8 L (6.4-8.9) gm/dL Albumin 3.6 (3.5-5.7) gm/dL Intake and Output 04/02/23 04/03/23 04/03/23 23:59 07:59 15:59 Intake Total 800 / 1800 650 / 650 Balance 800 / 1800 650 / 650 Intake: Oral 800 / 800 650 / 650 Other: # Unmeasured Voids 1 1 Weight 131.7 kg Date of Last Bowel Movement 04/02/23 04/02/23 04/02/23 Patient Weight 04/03/23 23:59 Weight 131.7 kg Lab 04/02/23 04/03/23 09:56 05:52 PT 32.0 H 38.4 H INR 2.8 3.3 APTT 41.1 H EKG Interpretations EKG Attestation EKG: I reviewed this ECG and interpreted as documented below: (EKG on presentation showed normal sinus rhythm with poor R wave progression anteriorlead today's EKG showed atrial flutter with controlled rate) A&P - Cardiology (1) Chest pressure: Code(s): R07.89 - Other chest pain Plan Assessment 1. Presentation with decreased size stamina, dyspnea on exertion and bilateral shoulder pain suspicious of possible angina in patient with known history of coronary artery disease. 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 His work-up so far has been benign including cardiac enzyme and EKG. 2. Persistent atrial fibrillation/flutter patient continues to be in and out ofA-fib flutter despite treatment with dofetilide 500 mg p.o. twice daily 3. Recurrent symptoms of orthostatic hypotension due to autonomic insufficiencyand diabetes mellitus 4. Hypertension 5. Hyperlipidemia 6. Long-term anticoagulation with Coumadin 7. Obesity Plan 1. We will check patient echocardiogram carotid Doppler in view of her complaint of shortness of breath and recurrent lightheadedness and dizziness 2. The patient will need ischemic evaluation. I discussed with him the possibility of heart cath versus stress testing. We will add reevaluate and review the results of his echo meanwhile we will hold his Coumadin in case cath is needed 3. Continue with aggressive approach risk factor modification 4. We will reduce his Lasix slightly in view of his recurrent episode of orthostatic hypotension and no clear evidence of significant volume overload Documented By: Dallas Em MD 04/03/23 1221 Signed By: <Electronically signed by MD Dallas Em> 04/03/23 1231 [facility] Work Phone: 1(858) 689-732307-15-2023 History and physical note Author Toy Yeager [facility] April 02, 2023 5:21pm Note Date/Time April 02, 2023 5:16 pm [facility] [address] [place] [address] Hospitalist H&P Signed Patient: Harriett Thakkar MR#: [id number] : 1965 Acct:[id number] Age/Sex: 58 / M Adm Date: 3 Loc: Room: [address] [place] [address] Type: ADM INOo Attending Dr: Toy Yeager MD Copies to: MD Toy Elizondo MD~ HPI DATE OF EXAMINATION: 04/02/23 CHIEF COMPLAINT: Chest pressure HISTORY OF PRESENT ILLNESS: Patient is a 58-year-old morbidly obese gentleman with history of atrial fibrillation currently on Coumadin, coronary artery disease status post PCI in 2019 currently on Plavix, poorly controlled diabetes mellitus with last A1c 7.9,medical noncompliance, hyperlipidemia, hypertension with chronic kidney disease came to the emergency department for ongoing chest pressure and uncomfortableness over the neck area. He also complained about heaviness of the bilateralarms. Patient was shopping last night at [employer] and started feeling above symptoms which are very similar to the heart attack that he had in 2019. Patient rested last night but then woke up with a similar symptoms in felt like coming to the emergency department to have the cardiac evaluation done. In the emergency department his cardiac enzymes were negative. No ST-T changes, vital signs were stable. Laboratory results were all within the normal limit except he has mildly elevated creatinine with 1.46. Patient received 1 L of IV fluid, aspirin and nitroglycerin he was sent to the floor for further management. Patient denies any lightheadedness, diaphoresis. However he felt short of breath and tachycardia. Review of Systems Review of Systems All other systems reviewed & are negative unless noted below or in HPI Constitutional Constitutional: Denies body ache(s), Denies chills and Denies headache(s) Eyes Eyes: Denies blurry vision and Denies photophobia ENT Ears, Nose, Mouth, and Throat: Denies headache(s) Cardiovascular Cardiovascular: Denies syncope Respiratory Respiratory: Denies dyspnea on exertion and Denies hemoptysis Gastrointestinal Gastrointestinal: Denies hematochezia and Denies melena Musculoskeletal Musculoskeletal: Denies deformity and Denies muscle weakness Integumentary/Breasts Skin/Breast: Denies nail changes, Denies rash and Denies unusual bruising Neurologic Neurologic: Denies confusion, Denies convulsions, Denies headache(s), Denies memory loss and Denies syncope Psychiatric Psychiatric: Denies confusion, Denies hallucinations and Denies memory loss Endocrine Endocrine: Denies heat intolerance Hematologic/Lymphatic Hematologic/Lymphatic: Denies easy bruising PMFSH Vaccinated for COVID-19?: Yes Medical History (Updated 04/02/23 @ 17:14 by Toy Yeager MD) A-fib Amputated toe of left foot Amputated toe of right foot 2 toes CAD (coronary artery disease) Diabetes mellitus, type 2 Hyperlipidemia Surgical History History of cardiac catheterization History of coronary angioplasty with insertion of stent History of phacoemulsification of cataract of both eyes with intraocular lens implantation S/P cervical spinal fusion Family History Father Diabetes CAD (coronary artery disease) Pulmonary embolism Mother Diabetes Brother Hypertension Social History Smoking Status: Never smoker Substance Use Type: None Social History Comments: 2 grand daughters Meds Medications and Allergies Allergies Sulfa (Sulfonamide Antibiotics) Allergy (Unknown, Verified 04/02/23 09:42) Unknown Reaction Penicillins Allergy (Verified 04/02/23 09:42) Unknown Reaction Home Medications insulin aspart U-100 100 unit/mL subcutaneous solution See Rx Instructions .Route .COMPLEX diabetes 08/04/17 [History Confirmed 04/02/23] metformin 850 mg tablet 850 mg PO BID diabetes 08/04/17 [History Confirmed 04/02/23] atorvastatin 80 mg tablet 80 mg PO QPM 30 days #30 tabs 11/09/19 [Rx Confirmed 04/02/23] dofetilide 500 mcg capsule 500 mcg PO BID 30 days #60 caps 11/12/19 [Rx Confirmed 04/02/23] nitroglycerin 0.4 mg sublingual tablet (Nitrostat) 0.4 mg sublingual Q5-15M PRN Angina 30 days #25 tabs 11/12/19 [Rx Confirmed 04/02/23] clopidogrel 75 mg tablet 75 mg PO DAILY 07/04/20 [History Confirmed 04/02/23] furosemide 20 mg tablet 60 mg PO DAILY 07/04/20 [History Confirmed 04/02/23] metoprolol succinate 25 mg capsule sprinkle, ext. release 24 hr 25 mg PO BID 07/04/20 [History Confirmed 04/02/23] insulin glargine-yfgn 100 unit/mL subcutaneous solution (Semglee (insulin glargine-yfgn)) 50 unit subcut DAILY 03/01/22 [History Confirmed 04/02/23] midodrine 2.5 mg tablet 5 mg PO BID 03/01/22 [History Confirmed 04/02/23] potassium chloride 10 mEq capsule,extended release 20 meq PO DAILY 03/01/22 [History Confirmed 04/02/23] semaglutide 1 mg/dose (4 mg/3 mL) subcutaneous pen injector (Ozempic) 2 mg subcut QWEEK 03/01/22 [History Confirmed 04/02/23] warfarin 5 mg tablet 5 mg PO DAILY 03/01/22 [History Confirmed 04/02/23] warfarin 7.5 mg tablet 7.5 mg PO DIRECTED 12/15/22 [History Confirmed 04/02/23] Exam Physical Exam Vital Signs: Temp Pulse Resp BP Pulse Ox O2 Del Method 97.8 F 91 H 18 130/88 98 Room Air 04/02/23 13:30 04/02/23 13:30 04/02/23 13:30 04/02/23 13:30 04/02/23 15:55 04/02/23 16:00 Const General: cooperative, no acute distress and well hydrated Orientation: alert, awake and oriented x3 HEENT Head: normocephalic and atraumatic Face and sinus: normal facial exam and sinuses nontender Mouth: oral mucosae normal Eyes Conjunctivae: conjunctivae normal Sclera: sclerae normal Neck Thyroid: thyroid normal Carotids: normal carotid upstroke Lymphatic: no lymphadenopathy noted Resp Effort & Inspection: normal respiratory effort, able to speak in complete sentences and symmetric chest movement Auscultation: clear to auscultation bilaterally Cardio Palpation: normal PMI Rate: regular rate Rhythm: regular rhythm Heart Sounds: S1 normal and S2 normal Pulses: dorsalis pedis present GI Palpation: soft and no hepatosplenomegaly Auscultation: normal bowel sounds Skin General: no rashes or lesions noted and turgor normal Neuro General: tone normal and moves all extremities Speech: speech normal Gait: normal gait Motor: muscle tone normal throughout Sensory Exam: no sensory deficits noted Extrem General: full ROM Psych Appearance: grossly normal Mental Status: mental status grossly normal Mood: congruent mood Affect: normal affect Attitude: cooperative Judgment: judgment good Results Lab Results Labs: Laboratory Last Values Corrected WBC 7.8 X10E3/uL (4.1-10.5) 04/02/23 09:56 Uncorrected WBC Count 7.8 x10E3/uL (4.1-10.5) 04/02/23 09:56 RBC 4.79 X10E6/uL (3.90-5.60) 04/02/23 09:56 Hgb 15.4 g/dL (13.0-17.0) 04/02/23 09:56 Hct 43.1 % (38.8-50.0) 04/02/23 09:56 MCV 89.9 fl (83.5-101) 04/02/23 09:56 MCH 32.1 pg (27.5-35.2) 04/02/23 09:56 MCHC 35.8 g/dL (32.5-35.6) H 04/02/23 09:56 RDW 14.3 % (12.0-14.8) 04/02/23 09:56 Plt Count 179 x10E3/uL (150-450) 04/02/23 09:56 MPV 9.6 fl (6.6-10.1) 04/02/23 09:56 Neut % (Auto) 67.7 % (.) 04/02/23 09:56 Lymph % (Auto) 18.7 % (.) 04/02/23 09:56 Maury % (Auto) 9.6 % (.) 04/02/23 09:56 Eos % (Auto) 3.0 % (.) 04/02/23 09:56 Baso % (Auto) 1.0 % (.) 04/02/23 09:56 Nucleat RBC Rel Count 0.2 /100 WBC (0-0.5) 04/02/23 09:56 Neut # (Auto) 5.3 x10E3/uL (1.8-7.7) 04/02/23 09:56 Lymph # (Auto) 1.5 x10E3/uL (1.00-4.8) 04/02/23 09:56 Maury # (Auto) 0.8 x10E3/uL (0.0-0.8) 04/02/23 09:56 Eos # (Auto) 0.2 x10E3/uL (0.0-0.45) 04/02/23 09:56 Baso # (Auto) 0.1 x10E3/uL (0.0-0.2) 04/02/23 09:56 Monocyte Dist Width 18.18 % (0.00-20.00) 04/02/23 09:56 PT 32.0 Seconds (9.0-12.9) H 04/02/23 09:56 INR 2.8 04/02/23 09:56 APTT 41.1 Seconds (25.1-36.5) H 04/02/23 09:56 PHA Creatinine Clear 77.99 04/02/23 09:56 Sodium 139 mmol/L (136-145) 04/02/23 09:56 Potassium 4.3 mmol/L (3.5-5.1) 04/02/23 09:56 Chloride 102 mmol/L (98-107) 04/02/23 09:56 Carbon Dioxide 26.2 mmol/L (21.0-31.0) 04/02/23 09:56 Anion Gap 15.1 mEq/L (6.0-15.0) H 04/02/23 09:56 BUN 33 mg/dL (7-25) H 04/02/23 09:56 Creatinine 1.46 mg/dL (0.70-1.30) H 04/02/23 09:56 Est GFR (CKD-EPI) 54.714 mL/Min 04/02/23 09:56 Glucose 207 mg/dL (70-100) H 04/02/23 09:56 POC Glucose 112 mg/dl 04/02/23 15:59 POC Glucose Comment Glu2: cleaned meter 04/02/23 15:59 Calcium 9.4 mg/dL (8.6-10.3) 04/02/23 09:56 Total Bilirubin 0.9 mg/dl (0.3-1.0) 04/02/23 09:56 AST 21 U/L (13-39) 04/02/23 09:56 ALT 24 U/L (7-52) 04/02/23 09:56 Alkaline Phosphatase 83 U/L (34-104) 04/02/23 09:56 Total Creatine Kinase 98 U/L (30-223) 04/02/23 15:55 Troponin I High Sens 8.9 pg/mL (0.0-20.0) 04/02/23 15:55 B-Natriuretic Peptide 81.0 pg/mL (5-100) 04/02/23 09:56 Total Protein 6.7 gm/dL (6.4-8.9) 04/02/23 09:56 Albumin 4.1 gm/dL (3.5-5.7) 04/02/23 09:56 Globulin 2.6 gm/dL 04/02/23 09:56 Albumin/Globulin Ratio 1.6 04/02/23 09:56 Assessment & Plan Assessment/Plan (1) Paroxysmal atrial fibrillation: (2) Diabetes mellitus: (3) CKD (chronic kidney disease) stage 3, GFR 30-59 ml/min: (4) Dyspnea: (5) Chest pressure: (6) Hyperlipidemia: Plan PLAN ON ADMISSION: 04/02/2023 Patient be admitted to medical telemetry for closer monitoring of cardiorespiratory and neuro status. We will cycle cardiac enzymes. He will have an EKG in the morning. I have also ordered an echocardiogram. Patient hadlast echocardiogram in 2019. We like to evaluate global echo hypokinesia and left ventricular ejection fraction. Diabetes will be managed with the long-acting insulin and correcting sliding scale. Daily INR will be drawn. Pharmacywill manage his Coumadin. We will keep INR between 2-3. His antiarrhythmic medications along with other home medications will be resumed. GI prophylax will be done with Protonix. DVT prophylaxis be done with SCD. CODE STATUS full. Total time spent on this admission encounter was about 57 minutes. IP vs OBS Justification Based on differential dx, clinical care plan, and risk of adverse events, if untreated, in my clinical judgement this patient requires an acute care setting as: OBSERVATION because of an expectation of an under 2 midnight stay. Estimated length of stay (# of days): 2 Documented By: Toy Yeager MD 04/02/23 170 Signed By: <Electronically signed by Toy Yeager MD> 04/02/23 1721 [facility] Work Phone: [phone]) [phone] Evaluation note* Encounter Date Diagnosis Assessment Notes Treatment Notes Treatment Clinical Notes Feb, Medication monitoring encounter (ICD-10 - Z51.81) Referring Provider: Angel Griggs Diagnosis: Atrial Fibrillation INR Goal: 2-3 INR: 2.7 Warfarin Tablet Size: 5mg Fabiano: 5mg Tuesday: 7.5mg Tuesday: 5mg Tuesday: 5mg : 5mg Tuesday: 5mg Tuesday: 5mg Total Weekly Dose: 37.5 mg Continue the plan above. Follow up in 4 weeks. Seen by Mala Downing, PharmD Candidate/Radha Lopez PharmD [employer] Other 05-31-2023 Evaluation note* Encounter Date Diagnosis Assessment Notes Treatment Notes Treatment Clinical Notes January, Medication monitoring encounter (ICD-10 - Z51.81) Referring Provider: Angel Griggs Diagnosis: Atrial Fibrillation INR Goal: 2-3 INR: 2.1 Warfarin Tablet Size: 5mg Fabiano: 5mg Tuesday: 7.5mg Tuesday: 5mg Tuesday: 5mg : 5mg Tuesday: 5mg Tuesday: 5mg Total Weekly Dose: 37.5 mg Continue the plan above. Follow up in 4 weeks. Seen by [facility] located [facility] [employer] Other 05-09-2023 Evaluation note* Encounter Date Diagnosis Assessment Notes Treatment Notes Treatment Clinical Notes January, Medication monitoring encounter (ICD-10 - Z51.81) Referring Provider: Angel Griggs Diagnosis: Atrial Fibrillation INR Goal: 2-3 INR: 2.7 Warfarin Tablet Size: 5mg Fabiano: 5mg Elder: 7.5mg Tuesday: 5mg Tuesday: 5mg : 5mg Tuesday: 5mg Tuesday: 5mg Total Weekly Dose: 37.5 mg Continue the plan above. Follow up in 3 weeks. TWD was decreased 12/15 due to elevated INR and bleeding. Patient was evaluated at the ER 12/15 (after INR appointment) for area on shoulder that had been bleeding heavily. Patient is currently being followed by his physician for the skin lesion and has appointment regarding this in early January. Seen by Letty Shaw, [facility] [employer] Other 04-27-2023 Evaluation note* Encounter Date Diagnosis Assessment Notes Treatment Notes Treatment Clinical Notes Dec, Medication monitoring encounter (ICD-10 - Z51.81) Referring Provider: Angel Griggs Diagnosis: Atrial Fibrillation INR Goal: 2-3 INR: 3.2 Warfarin Tablet Size: 5mg Fabiano: 5mg Tuesday: 7.5mg Sheron: 5mg Tuesday: 5mg : 5mg Tuesday: 5mg Tuesday: 5mg Total Weekly Dose: 37.5 mg Reduce to 2.5mg today, then continue the plan above. Follow up in 2 weeks. Patient is completing a 10 day course of levofloxacin therapy today which is the likely cause of the elevated INR. Patient reminded to call [facility] when a new medication is started so adjustment to warfarin therapy can be made if indicated. TWD was decreased 12/15 due to elevated INR and bleeding. Patient was evaluated at the ER 12/15 (after INR appointment) for area on shoulder that had been bleeding heavily. Patient is currently being followed by his physician for the skin lesion and has appointment regarding this in early January. Seen by Letty Shaw, [facility] [employer] Other 04-13-2023 Evaluation note* Encounter Date Diagnosis Assessment Notes Treatment Notes Treatment Clinical Notes Dec, Medication monitoring encounter (ICD-10 - Z51.81) Referring Provider: Angel Griggs Diagnosis: Atrial Fibrillation INR Goal: 2-3 INR: 2.5 Warfarin Tablet Size: 5mg Fabiano: 5mg Elder: 7.5mg Sheron: 5mg Tuesday: 5mg : 5mg Tuesday: 5mg Tuesday: 5mg Total Weekly Dose: 37.5 mg Continue the plan above. Follow up in 2 weeks. TWD was decreased 12/15 due to elevated INR and bleeding. Patient was evaluated at the ER 12/15 (after INR appointment) for area on shoulder that had been bleeding heavily. Patient is currently being followed by his physician for the skin lesion and has appointment regarding this in early January. Seen by Jama Lopez PharmD [employer] Other 04-06-2023 Evaluation note* Encounter Date Diagnosis Assessment Notes Treatment Notes Treatment Clinical Notes Dec, Medication monitoring encounter (ICD-10 - Z51.81) Referring Provider: Angel Griggs Diagnosis: Atrial Fibrillation INR Goal: 2-3 INR: 1.5 Warfarin Tablet Size: 5mg Tuesday: 5mg Tuesday: 7.5mg Tuesday: 5mg Tuesday: 5mg : 5mg Tuesday: 5mg Tuesday: 5mg Total Weekly Dose: 37.5 mg Boost to 7.5mg today (12/23) and tomorrow (12/24), then continue the plan above. Follow up in 1 week. Will evaluate the need to increase TWD at the next INR appointment. TWD was decreased 12/15 due to elevated INR and bleeding. Patient was evaluated at the ER 12/15 (after INR appointment) for area on shoulder that had been bleeding heavily. Patient's INR at the ER was 4.1. Patient held dose 12/15. Patient is currently being followed by his physician for the skin lesion. Seen by Letty Shaw concepcion [employer] Other 03-29-2023 Evaluation note* Encounter Date Diagnosis Assessment Notes Treatment Notes Treatment Clinical Notes Nov, Medication monitoring encounter (ICD-10 - Z51.81) Referring Provider: Angel Griggs Diagnosis: Atrial Fibrillation INR Goal: 2-3 INR: 3.0/3.7 Warfarin Tablet Size: 5mg Tuesday: 5mg Tuesday: 7.5mg Tuesday: 5mg Tuesday: 5mg : 5mg Tuesday: 5mg Tuesday: 5mg Total Weekly Dose: 37.5 mg Reduce today's dose to 2.5 mg, then continue new plan, a 6% decrease. Follow up in 1 week. Patient presents today due to a wound on shoulder, of unknown origin, that will not stop bleeding. Patient reports that it was profusely bleeding last night but, he has gotten a handle on things earlier today. However, it is still bleeding. Patient did not take any warfarin last night (12/14). Patients INR was checked via [employer]ense machine, reading: no reading/INR>8.0. Rechecked INR via [employer] machine: INR resulted at 3.0 and Coagu[employer] machine: 3.7. Recommended that the patient gets wound evaluated at an Urgent Care or Emergency Room. Patient understands the above recommendations. Instructed patient to call [facility] if he has further issues after being evaluated at Urgent Care/Emergency Room. Seen by Jama Lopez PharmD [employer] Other 03-16-2023 Evaluation note* Encounter Date Diagnosis Assessment Notes Treatment Notes Treatment Clinical Notes Nov, Medication monitoring encounter (ICD-10 - Z51.81) Referring Provider: Angel Griggs Diagnosis: Atrial Fibrillation INR Goal: 2-3 INR: 3.5 Warfarin Tablet Size: 5mg Tuesday: 5mg Tuesday: 7.5mg Tuesday: 5mg Tuesday: 5mg : 5mg Tuesday: 7.5mg Tuesday: 5mg Total Weekly Dose: 40 mg Hold today's dose, then continue current new plan, a 6% decrease. Follow up in 2 weeks. Patient denies signs/symptoms of bleeding or brusising or medication changes. Patient reports he has had diarrhea, possible cause for elevated INR. Clinical decision to reduce TWD from 42.5mg to 40mg (lowest possible reduction) as this is becoming a chronic issue. Seen by Jama Lopez PharmD [employer] Other 02-13-2023 Evaluation note* Encounter Date Diagnosis Assessment Notes Treatment Notes Treatment Clinical Notes Oct, Medication monitoring encounter (ICD-10 - Z51.81) Referring Provider: Angel Griggs Diagnosis: Atrial Fibrillation INR Goal: 2-3 INR: 3.2 Warfarin Tablet Size: 5mg Tuesday: 5mg Tuesday: 7.5mg Tuesday: 5mg Tuesday: 7.5mg : 5mg Tuesday: 7.5mg Tuesday: 5mg Total Weekly Dose: 42.5mg Reduce today's dose by 2.5mg, then continue current plan. Follow up in 4 weeks per patient preference. Patient has been experiencing GI upset and diahrrea this past week, possible cause for elevated INR. Seen by Jama Lopez PharmD, Jaylin Wright PharmD Candidate [employer] Other 01-16-2023 Evaluation note* Encounter Date Diagnosis Assessment Notes Treatment Notes Treatment Clinical Notes Sep, Medication monitoring encounter (ICD-10 - Z51.81) Referring Provider: Angel Griggs Diagnosis: Atrial Fibrillation INR Goal: 2-3 INR: 1.6 Warfarin Tablet Size: 5mg Tuesday: 5mg Tuesday: 7.5mg Tuesday: 5mg Tuesday: 7.5mg : 5mg Tuesday: 7.5mg Tuesday: 5mg Total Weekly Dose: 42.5mg Boost an additional 2.5mg today and tomorrow, then continue current plan. Follow up in 4 weeks per patient preference. Patient states he missed dose 3 days ago, reason for low INR. Seen by Ugo Connelly PharmD [employer] Other 11-07-2022 Evaluation note* Encounter Date Diagnosis Assessment Notes Treatment Notes Treatment Clinical Notes Jul, Medication monitoring encounter (ICD-10 - Z51.81) Referring Provider: Angel Griggs Diagnosis: Atrial Fibrillation INR Goal: 2-3 INR: 2.3 Warfarin Tablet Size: 5mg Tuesday: 5mg Tuesday: 7.5mg Tuesday: 5mg Tuesday: 7.5mg : 5mg Tuesday: 7.5mg Tuesday: 5mg Total Weekly Dose: 42.5mg Continue current plan. Follow up in 5 weeks. Seen by Ugo Connelly PharmD [employer] Other 10-03-2022 Evaluation note* Encounter Date Diagnosis Assessment Notes Treatment Notes Treatment Clinical Notes Jun, Medication monitoring encounter (ICD-10 - Z51.81) Referring Provider: Angel Griggs Diagnosis: Atrial Fibrillation INR Goal: 2-3 INR: 1.9 Warfarin Tablet Size: 5mg Tuesday: 5mg Tuesday: 7.5mg Sheron: 5mg Tuesday: 7.5mg : 5mg Tuesday: 7.5mg Tuesday: 5mg Total Weekly Dose: 42.5mg Boost additional 2.5mg today, Thursday 06/21 due to missing dose last night. Continue current plan. Follow up in 5 weeks. A prescription for warfarin is called into [facility] in [place]. Seen by Marta Hernandez RN [employer] Other 08-29-2022 Evaluation note* Encounter Date Diagnosis Assessment Notes Treatment Notes Treatment Clinical Notes Apr, Medication monitoring encounter (ICD-10 - Z51.81) Referring Provider: Angel Griggs Diagnosis: Atrial Fibrillation INR Goal: 2-3 INR: 3.1 Tablet Size: 5mg Tuesday: 5mg Tuesday: 7.5mg Tuesday: 5mg Tuesday: 7.5mg : 5mg Tuesday: 7.5mg Tuesday: 5mg Total Weekly Dose: 42.5mg Reduce to 5mg ton, Thursday 05/17 and then continue current plan. Follow up in 5 weeks. Patient is taking doxycyline for 10 days, no interaction with warfarin. Seen by Marta Hernandez RN [employer] Other 07-20-2022 Evaluation note* Encounter Date Diagnosis Assessment Notes Treatment Notes Treatment Clinical Notes Mar, Medication monitoring encounter (ICD-10 - Z51.81) Referring Provider: Angel Griggs Diagnosis: Atrial Fibrillation INR Goal: 2-3 INR: 2.3 Tablet Size: 5mg Tuesday: 5mg Tuesday: 7.5mg Tuesday: 5mg Tuesday: 7.5mg : 5mg Tuesday: 7.5mg Tuesday: 5mg Total Weekly Dose: 42.5mg Continue current plan. Follow up in 5 weeks. Seen by Marta Hernandez RN [employer] Other 06-22-2022 Evaluation note* Encounter Date Diagnosis Assessment Notes Treatment Notes Treatment Clinical Notes Feb, Medication monitoring encounter (ICD-10 - Z51.81) Referring Provider: Angel Griggs Diagnosis: Atrial Fibrillation INR Goal: 2-3 INR: 2.7 Tablet Size: 5mg Tuesday: 5mg Tuesday: 7.5mg Tuesday: 5mg Tuesday: 7.5mg : 5mg Tuesday: 7.5mg Tuesday: 5mg Total Weekly Dose: 42.5mg Continue current plan. Follow up in 4 weeks. Seen by Marta Hernandez RN [employer] Other 05-25-2022 Evaluation note* Encounter Date Diagnosis Assessment Notes Treatment Notes Treatment Clinical Notes January, Medication monitoring encounter (ICD-10 - Z51.81) Referring Provider: Angel Griggs Diagnosis: Atrial Fibrillation INR Goal: 2-3 INR: 2.4 Tablet Size: 5mg Tuesday: 5mg Tuesday: 7.5mg Tuesday: 5mg Tuesday: 7.5mg : 5mg Tuesday: 7.5mg Tuesday: 5mg Total Weekly Dose: 42.5mg Continue current plan. Follow up in 4 weeks. Seen by Zakiya Velásquez LPN January, Other - INSTRUCTIONS: Please take as instructed above. Notify [facility] for [facility] [phone] option 5 for the following: -Call immediately if you have a change in any medications, dose change, discontinuation, starting, over the counter, including Multivitamins or change of brands. - Call immediately if you have signs of bleeding or bruising for unknown reason. - Call immediately if you miss one or more doses of warfarin. - Call immediately if you have more than one episode of diarrhea or illness that is preventing you from taking your warfarin or change in diet. - Call immediately if you begin or stop drinking Boost, Ensure or any other meal supplement. - Call immediately if any physician or provider tells you to stop taking your warfarin for an upcoming procedure. - Call immediately if any pharmacy, physician or any other person tells you to adjust your warfarin. [employer] Other 04-27-2022 Evaluation note* Encounter Date Diagnosis Assessment Notes Treatment Notes Treatment Clinical Notes Dec, Medication monitoring encounter (ICD-10 - Z51.81) Referring Provider: Angel Griggs Diagnosis: Atrial Fibrillation INR Goal: 2-3 INR: 3.0 Tablet Size: 5mg Tuesday: 5mg Tuesday: 7.5mg Sheron: 5mg Tuesday: 7.5mg : 5mg Tuesday: 7.5mg Tuesday: 5mg Total Weekly Dose: 42.5mg Continue current plan. Follow up in 4 weeks. A prescription for warfarin is called into [facility] in [place] and put on hold. Seen by Marta Hernandez RN [employer] Other 03-30-2022 Evaluation note* Encounter Date Diagnosis Assessment Notes Treatment Notes Treatment Clinical Notes Nov, Medication monitoring encounter (ICD-10 - Z51.81) Referring Provider: Angel Griggs Diagnosis: Atrial Fibrillation INR Goal: 2-3 INR: 2.7 Tablet Size: 5mg Tuesday: 5mg Tuesday: 7.5mg Tuesday: 5mg Tuesday: 7.5mg : 5mg Tuesday: 7.5mg Tuesday: 5mg Total Weekly Dose: 42.5mg Continue current plan. Follow up in 4 weeks. Seen by Rhiannon James LPN [facility] [employer] Other 03-03-2022 Evaluation note* Encounter Date Diagnosis Assessment Notes Treatment Notes Treatment Clinical Notes Nov, Medication monitoring encounter (ICD-10 - Z51.81) Referring Provider: Angel Griggs Diagnosis: Atrial Fibrillation INR Goal: 2-3 INR: 3.2 Tablet Size: 5mg Tuesday: 5mg Tuesday: 7.5mg Tuesday: 5mg Tuesday: 7.5mg : 5mg Tuesday: 7.5mg Tuesday: 5mg Total Weekly Dose: 42.5mg Continue current plan. Adjustment is not made due to missing last night's dose. Follow-up in 4 weeks per patient preference. Patient's 11/14/21. Seen by Marta Hernandez RN [employer] Other 02-01-2022 Evaluation note* Encounter Date Diagnosis Assessment Notes Treatment Notes Treatment Clinical Notes Oct, Medication monitoring encounter (ICD-10 - Z51.81) Referring Provider: Angel Griggs Diagnosis: Atrial Fibrillation INR Goal: 2-3 INR: 1.7 Tablet Size: 5mg Tuesday: 5mg Tuesday: 7.5mg Sheron: 5mg Tuesday: 7.5mg : 5mg Tuesday: 7.5mg Tuesday: 5mg Total Weekly Dose: 42.5mg Boost additional 2.5mg today then continue current plan. Follow-up in 4 weeks per patient preference. Seen by Marta Hernandez RN [facility] [employer] Other 01-04-2022 Evaluation note* Encounter Date Diagnosis Assessment Notes Treatment Notes Treatment Clinical Notes Sep, Medication monitoring encounter (ICD-10 - Z51.81) Referring Provider: Angel Griggs Diagnosis: Atrial Fibrillation INR Goal: 2-3 INR: 2.7 Tablet Size: 5mg Tuesday: 5mg Tuesday: 7.5mg Tuesday: 5mg Tuesday: 7.5mg : 5mg Tuesday: 7.5mg Tuesday: 5mg Total Weekly Dose: 42.5mg Continue current plan. Follow-up in 4 weeks per patient preference. Seen by Ugo Connelly PharmD [employer] Other 12-06-2021 Evaluation note* Encounter Date Diagnosis Assessment Notes Treatment Notes Treatment Clinical Notes Aug, Medication monitoring encounter (ICD-10 - Z51.81) Referring Provider: Angel Griggs Diagnosis: Atrial Fibrillation INR Goal: 2-3 INR: 2.9 Tablet Size: 5mg Tuesday: 5mg Tuesday: 7.5mg Tuesday: 5mg Tuesday: 7.5mg : 5mg Tuesday: 7.5mg Tuesday: 5mg Total Weekly Dose: 42.5mg Continue current plan. Follow-up in 4 weeks per patient preference. Seen by Ugo Connelly PharmD [employer] Other 11-03-2021 Evaluation note* Encounter Date Diagnosis Assessment Notes Treatment Notes Treatment Clinical Notes Jul, Medication monitoring encounter (ICD-10 - Z51.81) Referring Provider: Angel Griggs Diagnosis: Atrial Fibrillation INR Goal: 2-3 INR: 1.6 Tablet Size: 5mg Tuesday: 5mg Tuesday: 7.5mg Tuesday: 5mg Tuesday: 5mg : 5mg Tuesday: 7.5mg Tuesday: 5mg Total Weekly Dose: 40mg Boost to 7.5mg today, then begin new plan, a 7% increase. Follow-up in 2 weeks. Patient prefers Tuesday late afternoon for appointments. Seen by Ugo Connelly PharmD [employer] Other 10-27-2021 Evaluation note* Encounter Date Diagnosis Assessment Notes Treatment Notes Treatment Clinical Notes Jun, Medication monitoring encounter (ICD-10 - Z51.81) Referring Provider: Angel Griggs Diagnosis: Atrial Fibrillation INR Goal: 2-3 INR: 3.4 Tablet Size: 5mg Tuesday: 5mg Tuesday: 7.5mg Tuesday: 5mg Tuesday: 5mg : 5mg Tuesday: 7.5mg Tuesday: 5mg Total Weekly Dose: 40mg Begin new plan, a 6% decrease. Follow-up in 1 week. Patient prefers Tuesday late afternoon for appointments. Seen by Ugo Connelly PharmD [employer] Other 10-06-2021 Evaluation note* Encounter Date Diagnosis Assessment Notes Treatment Notes Treatment Clinical Notes Jun, Medication monitoring encounter (ICD-10 - Z51.81) Referring Provider: Angel Griggs Diagnosis: Atrial Fibrillation INR Goal: 2-3 INR: 3.5 Tablet Size: 5mg Fabiano: 5mg Tuesday: 7.5mg Tuesday: 5mg Tuesday: 7.5mg : 5mg Tuesday: 7.5mg Tuesday: 5mg Total Weekly Dose: 42.5mg Hold today, then continue above plan. Follow-up in 3 weeks per patient preference. Patient prefers Tuesday late afternoon for appointments. Seen by Ugo Connelly PharmD [employer] Other Chi complaint Narrative - Mariaj THAKKAR is being seen for a consultation for atrial fibrillation and ICD eval. [id number] Work Phone: consult note Author [place] [facility] April 03, 2023 12:31pm Note Date/Time April 03, 2023 12:2 1pm [facility] [address] [place] [address] Cardiology Consult Note Signed Patient: Harriett Thakkar MR#: [id number] : 1965 Acct:[id number] Age/Sex: 58 / M Adm Date: 3 Loc: Room: 0Z0471-1 Type: ADM INOo Attending Dr: Toy Yeager MD Copies to: MD Dallas Elizondo MD Mushtaq Mahmood, MD~ Cardiology HPI History of Present Illness Consult Date: 04/03/23 Reason for Consult: Cardiac consultation requested for evaluation for shortness of breath HPI: Mr. Thakkar is a 58 year old male with known history of coronary artery disease and prior PCI to the LAD last in 2019, history of atrial fibrillation maintaining sinus rhythm with dofetilide presented to hospital complaining of decreased exercise tolerance, dyspnea on exertion and episode of chest heavinessand shoulder pressure while he was shopping at [employer]. He rested with improvement of his symptoms. He recently has noticed decreased exercise tolerance and dyspnea on exertion. He also reported several bouts of orthostatic hypotension, lightheadedness and dizziness. He is unsure how some of the his symptoms to his previous presentation with angina and ischemic event. Currently he feels better. He denies chest pain. He does report a previous history of orthostatic hypotension and had been using midodrine intermittently. Review of Systems Review of Systems All other systems reviewed & are negative unless noted below or in HPI Eyes Eyes: Reports system reviewed and no additional complaints, except as documented ENT Ears, Nose, Mouth, and Throat: Reports system reviewed and no additional complaints, except as documented Cardiovascular Cardiovascular: Reports system reviewed and no additional complaints, except as documented Respiratory Respiratory: Reports system reviewed and no additional complaints, except as documented Gastrointestinal Gastrointestinal: Reports system reviewed and no additional complaints, except as documented Genitourinary Genitourinary: Reports system reviewed and no additional complaints, except as documented Musculoskeletal Musculoskeletal: Reports system reviewed and no additional complaints, except asdocumented Integumentary/Breasts Skin/Breast: Reports system reviewed and no additional complaints, except as documented Neurologic Neurologic: Reports system reviewed and no additional complaints, except as documented Psychiatric Psychiatric: Reports system reviewed and no additional complaints, except as documented Endocrine Endocrine: Reports system reviewed and no additional complaints, except as documented Hematologic/Lymphatic Hematologic/Lymphatic: Reports system reviewed and no additional complaints, except as documented Allergic/Immunologic Allergic/Immunologic: Reports system reviewed and no additional complaints, except as documented PMFSH Source: Unable to Obtain Vaccinated for COVID-19?: Yes Medical History (Updated 04/02/23 @ 17:14 by Toy Yeager MD) A-fib Amputated toe of left foot Amputated toe of right foot 2 toes CAD (coronary artery disease) Diabetes mellitus, type 2 Hyperlipidemia Surgical History History of cardiac catheterization History of coronary angioplasty with insertion of stent History of phacoemulsification of cataract of both eyes with intraocular lens implantation S/P cervical spinal fusion Family History Father Diabetes CAD (coronary artery disease) Pulmonary embolism Mother Diabetes Brother Hypertension Social History Smoking Status: Never smoker Substance Use Type: None Social History Comments: 2 grand daughters Meds Medications and Allergies Allergies Sulfa (Sulfonamide Antibiotics) Allergy (Unknown, Verified 04/02/23 09:42) Unknown Reaction Penicillins Allergy (Verified 04/02/23 09:42) Unknown Reaction Home Medications insulin aspart U-100 100 unit/mL subcutaneous solution See Rx Instructions .Route .COMPLEX diabetes 08/04/17 [History Confirmed 04/02/23] metformin 850 mg tablet 850 mg PO BID diabetes 08/04/17 [History Confirmed 04/02/23] atorvastatin 80 mg tablet 80 mg PO QPM 30 days #30 tabs 11/09/19 [Rx Confirmed 04/02/23] dofetilide 500 mcg capsule 500 mcg PO BID 30 days #60 caps 11/12/19 [Rx Confirmed 04/02/23] nitroglycerin 0.4 mg sublingual tablet (Nitrostat) 0.4 mg sublingual Q5-15M PRN Angina 30 days #25 tabs 11/12/19 [Rx Confirmed 04/02/23] clopidogrel 75 mg tablet 75 mg PO DAILY 07/04/20 [History Confirmed 04/02/23] furosemide 20 mg tablet 60 mg PO DAILY 07/04/20 [History Confirmed 04/02/23] metoprolol succinate 25 mg capsule sprinkle, ext. release 24 hr 25 mg PO BID 07/04/20 [History Confirmed 04/02/23] insulin glargine-yfgn 100 unit/mL subcutaneous solution (Semglee (insulin glargine-yfgn)) 50 unit subcut DAILY 03/01/22 [History Confirmed 04/02/23] midodrine 2.5 mg tablet 5 mg PO BID 03/01/22 [History Confirmed 04/02/23] potassium chloride 10 mEq capsule,extended release 20 meq PO DAILY 03/01/22 [History Confirmed 04/02/23] semaglutide 1 mg/dose (4 mg/3 mL) subcutaneous pen injector (Ozempic) 2 mg subcut QWEEK 03/01/22 [History Confirmed 04/02/23] warfarin 5 mg tablet 5 mg PO DAILY 03/01/22 [History Confirmed 04/02/23] warfarin 7.5 mg tablet 7.5 mg PO DIRECTED 12/15/22 [History Confirmed 04/02/23] Exam Physical Exam Vital Signs: Temp Pulse Resp BP Pulse Ox O2 Del Method 98.4 F 81 18 116/77 94 L Room Air 04/03/23 08:00 04/03/23 08:00 04/03/23 08:00 04/03/23 08:00 04/03/23 08:00 04/03/23 08:00 Const General: cooperative, comfortable, no acute distress and well developed HEENT Head: atraumatic Mouth: oral mucosae normal Eyes General: appearance normal, both eyes and all related structures Pupils: PERRL Neck Neck: normal visual inspection, supple and no lymphadenopathy noted Neck mass: No Thyroid: thyroid normal Carotids: normal carotid upstroke Chest Chest palpation & inspection: normal inspection of the chest Resp Effort & Inspection: normal respiratory effort Auscultation: clear to auscultation bilaterally Cardio Palpation: normal PMI Rate: regular rate Rhythm: regular rhythm Heart Sounds: S1 normal and S2 normal GI Palpation: soft and no hepatosplenomegaly Percussion: normal to percussion Auscultation: normal bowel sounds Skin General: no rashes or lesions noted and dry skin Neuro General: patient alert, patient awake, patient oriented x3, tone normal and moves all extremities Extrem General: full ROM, capillary refill normal and no clubbing, cyanosis or edema Psych Mental Status: mental status grossly normal Results Labs 04/03/23 05:52 04/03/23 05:52 Lab results: Cardiac Enzymes 04/02/23 04/02/23 04/02/23 Range/Units 15:55 18:59 21:52 AST (13-39) U/L Total Creatine Kinase 98 97 97 (30-223) U/L 04/03/23 04/03/23 Range/Units 03:53 05:52 AST 23 (13-39) U/L Total Creatine Kinase 101 (30-223) U/L Lipids 04/03/23 Range/Units 05:52 Triglycerides 182 H (0-149) mg/dL Cholesterol 69 L (140-200) mg/dL HDL Cholesterol 16 L (23-92) mg/dL Cholesterol/HDL Ratio 4.3 (<5.0) CBC 04/03/23 Range/Units 05:52 RBC 4.34 (3.90-5.60) X10E6/uL Hgb 13.8 (13.0-17.0) g/dL Hct 39.0 (38.8-50.0) % Plt Count 132 L (150-450) x10E3/uL Neut # (Auto) 4.3 (1.8-7.7) x10E3/uL Lymph # (Auto) 1.6 (1.00-4.8) x10E3/uL Maury # (Auto) 0.7 (0.0-0.8) x10E3/uL Eos # (Auto) 0.2 (0.0-0.45) x10E3/uL Baso # (Auto) 0.1 (0.0-0.2) x10E3/uL Comprehensive Metabolic Panel 04/03/23 Range/Units 05:52 Sodium 138 (136-145) mmol/L Potassium 3.7 (3.5-5.1) mmol/L Chloride 103 (98-107) mmol/L Carbon Dioxide 27.8 (21.0-31.0) mmol/L BUN 28 H (7-25) mg/dL Creatinine 1.05 (0.70-1.30) mg/dL Glucose 175 H (70-100) mg/dL Calcium 8.0 L (8.6-10.3) mg/dL AST 23 (13-39) U/L ALT 24 (7-52) U/L Alkaline Phosphatase 73 (34-104) U/L Total Protein 5.8 L (6.4-8.9) gm/dL Albumin 3.6 (3.5-5.7) gm/dL Intake and Output 04/02/23 04/03/23 04/03/23 23:59 07:59 15:59 Intake Total 800 / 1800 650 / 650 Balance 800 / 1800 650 / 650 Intake: Oral 800 / 800 650 / 650 Other: # Unmeasured Voids 1 1 Weight 131.7 kg Date of Last Bowel Movement 04/02/23 04/02/23 04/02/23 Patient Weight 04/03/23 23:59 Weight 131.7 kg Lab 04/02/23 04/03/23 09:56 05:52 PT 32.0 H 38.4 H INR 2.8 3.3 APTT 41.1 H EKG Interpretations EKG Attestation EKG: I reviewed this ECG and interpreted as documented below: (EKG on presentation showed normal sinus rhythm with poor R wave progression anteriorlead today's EKG showed atrial flutter with controlled rate) A&P - Cardiology (1) Chest pressure: Code(s): R07.89 - Other chest pain Plan Assessment 1. Presentation with decreased size stamina, dyspnea on exertion and bilateral shoulder pain suspicious of possible angina in patient with known history of coronary artery disease. 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 His work-up so far has been benign including cardiac enzyme and EKG. 2. Persistent atrial fibrillation/flutter patient continues to be in and out ofA-fib flutter despite treatment with dofetilide 500 mg p.o. twice daily 3. Recurrent symptoms of orthostatic hypotension due to autonomic insufficiencyand diabetes mellitus 4. Hypertension 5. Hyperlipidemia 6. Long-term anticoagulation with Coumadin 7. Obesity Plan 1. We will check patient echocardiogram carotid Doppler in view of her complaint of shortness of breath and recurrent lightheadedness and dizziness 2. The patient will need ischemic evaluation. I discussed with him the possibility of heart cath versus stress testing. We will add reevaluate and review the results of his echo meanwhile we will hold his Coumadin in case cath is needed 3. Continue with aggressive approach risk factor modification 4. We will reduce his Lasix slightly in view of his recurrent episode of orthostatic hypotension and no clear evidence of significant volume overload Documented By: Dallas Em MD 04/03/23 1221 Signed By: <Electronically signed by MD Dallas Em> 04/03/23 1231 [facility] Work Phone: Discharge summary Author Derrek Tay [facility] April 05, 2023 5:24pm Note Date/Time April 05, 2023 5:22 pm [facility] [address] [place] [address] Discharge Summary Signed Patient: Harriett Thakkar MR#: [id number] : 1965 Acct:[id number] Age/Sex: 58 / M Adm Date: 3 Loc: Room: [address] [place] [address]: Derrek Tay DO Copies to: MD Derrek Elizondo, DO~ Providers Date of Admission: 04/02/23 Date of Discharge: 04/04/23 Discharging Provider: Derrek Tay Primary Care Provider: Toby Amador Consults: 04/02/23 15:37 Consult to Cardiology Routine Discharge Diagnosis (1) Chest pressure: (2) Paroxysmal atrial fibrillation: (3) Hyperlipidemia: (4) Orthostatic hypotension: (5) History of PTCA 1: (6) Diabetes mellitus: (7) Dyspnea: (8) Sleep apnea: (9) Abnormal QT interval present on electrocardiogram: Final Diagnosis Final Discharge Diagnosis: As above Summary Hospital Course Hospital course: Mr Elizondo is a 58-year-old male who was admitted to hospital the evening of with a chief complaint of chest pressure, he has a history of prior GA and states that they feel similar. In the emergency room his cardiac enzymes are negative and there is initial work-up was normal however [facility] due to his positive cardiac history. His and his troponins continue to be normal, echocardiogram was orderedAnd was found to have regional wall motion abnormalities,, the septum washyperechoic with hypokinesis consistent with prior infarction, moderate to severe anterior wall hypokinesis with LV ejection fraction of 45%. He was seen on cardiology consultation who recommended ischemic evaluation down the road, his biggest issue did appear to be compliance with his blood pressure medicationas the patient does have a history of orthostasis and he forgets to take his midodrine in the afternoon and often is does not take in the morning. His A1c was 5-7.5, the afternoon of April 04 it was recommended by cardiology to schedulean ablation to avoid further antiarrhythmic therapy this may also be contributing factor and he will also be scheduled for an outpatient Lexiscan. He was discharged afternoon on April 04. Condition Condition at Discharge: Stable Time Spent with Patient Time spent providing/coordinating discharge services (# min): 25 Exam Physical Exam Vital Signs: Temp Pulse Resp BP Pulse Ox O2 Del Method 98.2 F 67 20 112/62 98 Room Air 04/04/23 18:38 04/04/23 18:38 04/04/23 18:38 04/04/23 18:38 04/04/23 18:38 04/04/23 18:38 Narrative: General: Awake alert, no acute distress HEENT: head atraumatic, normocephalic, moist mucous membranes Neck: supple no masses, no lymphadenopathy CVS: regular rate and rhythm, no murmurs or gallops Respiratory: clear to auscultation bilaterally, no wheezing or crackles, symmetric expansion GI: soft, nondistended, nontender, positive bowel sounds with no organomegaly Extremity: moves all extremities, no restrictions of movements, no calf tenderness, no edema Neuro: AOx3, CN II-VII intact. Moves all extremities in all planes of motion. Skin: dry, intact no rashes or lesions Discharge Plan Discharge Plan Patient Disposition: Home Diet: Low-Sodium and Low-Cholesterol Instructions: Orthostatic Hypotension (DC) Prescriptions: Continued metformin 850 mg tablet 850 mg PO BID Patient Comments: TK 1 T PO BID insulin aspart U-100 100 unit/mL solution See Rx Instructions .ROUTE .COMPLEX Patient Comments: sliding scale Rx Instructions: 150-200=3, 200-250=6, 250-300=9, 300-350=12, 350-400=15 plus half as many insulin as carbs eaten. atorvastatin 80 mg Tablet 80 mg PO QPM 30 Days Qty: 30 12RF dofetilide 500 mcg Capsule 500 mcg PO BID 30 Days Qty: 60 12RF nitroglycerin [Nitrostat] 0.4 mg Tablet, Sublingual 0.4 mg SUBLINGUAL Q5-15M PRN (Reason: Angina) 30 Days Qty: 25 3RF warfarin 7.5 mg Tablet 7.5 mg PO DIRECTED Rx Instructions: TUESDAY insulin aspart U-100 100 unit/mL (3 mL) Insulin Pen See Protocol SUBCUT AC Protocol: Carb Coverage Insulin 1:2 gm CHO Protocol Text: *Carb coverage 1:2* Give 1 unit of rapid-acting insulin for every 2 gm of carbohydrates eaten at meals clopidogrel 75 mg tablet 75 mg PO DAILY furosemide 20 mg tablet 60 mg PO DAILY Patient Comments: TK 1 T PO D metoprolol succinate 25 mg Capsule,Sprinkle,Er 24hr 25 mg PO BID potassium chloride 10 mEq Capsule, Extended Release 20 meq PO DAILY warfarin 5 mg tablet 5 mg PO DAILY midodrine 2.5 mg tablet 5 mg PO BID Patient Comments: TAKE 1 TABLET BY MOUTH THREE TIMES DAILY Ozempic 1 mg/dose (4 mg/3 mL) pen injector 2 mg SUBCUT QWEEK Patient Comments: INJECT 1MG UNDER THE SKIN ONE DAY A WEEK Rx Instructions: tuesday insulin glargine-yfgn [Semglee(insulin glargine-yfgn)] 100 unit/mL solution 50 unit SUBCUT DAILY Patient Comments: ADMINISTER 60 UNITS UNDER THE SKIN DAILY Follow Up: [facility] [Outside] - 04/11/23 11:00 am (Please keep previously scheduled follow up appointment for the following date and time, please call to reschedule if needed.) [facility] [Outside] (The office is aware of your hospital stay and need for follow up, the office will call you to schedule. Please call the office if you have not heard from them by the next business day.) Toby Amador MD [Primary Care Provider] - (The office is aware of your hospital stay and need for follow up, the office will call you to schedule. Please call the office if you have not heard from them by the next business day.) Documented By: Derrek Tay DO 04/05/23 1711 Signed By: <Electronically signed by Derrek Tay DO> 04/05/23 3440 [facility] Work Phone: Evaluation noteNo InformationNort Depositphotos Other Evaluation noteNo assessment information available [facility] Work Phone: Evaluation note* Diagnosis Onset Date Resolution Status Chest pressure acute [facility] Work Phone: evaluation note* Diagnosis Onset Date Resolution Status Abnormal QT interval present on electrocardiogram acute Chest pressure acute CKD (chronic kidney disease) stage 3, GFR 30-59 ml/min acute Diabetes mellitus acute Dyspnea acute History of PTCA 1 acute Hyperlipidemia acute Orthostatic hypotension acut e Paroxysmal atrial fibrillation acute Sleep apnea acute [facility] Work Phone: Evaluation note* Diagnosis Atrial fibrillation (CMS/HCC) Atrial fibrillation Ischemic cardiomyopathy Other specified forms of chronic ischemic heart disease Ischemic cardiomyopathy- Primary Other specified forms of chronic ischemic heart disease Ischemic cardiomyopathy Other specified forms of chronic ischemic heart disease Paroxysmal atrial fibrillation (CMS/HCC) Atrial fibrillation Ventricular tachycardia, nonsustained (CMS/HCC) S/P implantation of automatic cardioverter/defibrillator (AICD) Automatic implantable cardiac defibrillator in situ S/P implantation of automatic cardioverter/defibrillator (AICD) Automatic implantable cardiac defibrillator in situ Atrial fibrillation (CMS/HCC) Atrial fibrillation documented in this encounter [facility] Work Phone: Evaluation note* Diagnosis Atrial fibrillation (CMS/HCC) Atrial fibrillation Paroxysmal atrial fibrillation (CMS/HCC) Atrial fibrillation 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 History of PTCA Postsurgical percutaneous transluminal coronary angioplasty status History of GA (myocardial infarction) Old myocardial infarction Ischemic cardiomyopathy Other specified forms of chronic ischemic heart disease Ventricular tachycardia, nonsustained (CMS/HCC) S/P implantation of automatic cardioverter/defibrillator (AICD) Automatic implantable cardiac defibrillator in situ Essential hypertension Unspecified essential hypertension Hyperlipidemia, unspecified hyperlipidemia type Orthostatic hypotension Atrial fibrillation (CMS/HCC) Atrial fibrillation documented in this encounter [facility] Work Phone: Evaluation note* Diagnosis Atrial fibrillation (CMS/HCC) Atrial fibrillation Primary cardiomyopathy (CMS/HCC) Other primary cardiomyopathies Atrial fibrillation (CMS/HCC) Atrial fibrillation documented in this encounter [facility] Work Phone: Evaluation note* Diagnosis Atrial fibrillation (CMS/HCC) Atrial fibrillation Presence of automatic cardioverter/defibrillator (AICD) Automatic implantable cardiac defibrillator in situ Ventricular tachycardia, nonsustained (CMS/HCC) Atrial fibrillation (CMS/HCC) Atrial fibrillation documented in this encounter [facility] Work Phone: Evaluation note* Diagnosis Atrial fibrillation (CMS/HCC) Atrial fibrillation Presence of automatic cardioverter/defibrillator (AICD) Automatic implantable cardiac defibrillator in situ Ventricular tachycardia, nonsustained (CMS/HCC) Atrial fibrillation (CMS/HCC) Atrial fibrillation documented in this encounter [facility] Work Phone: Evaluation note* Diagnosis Atrial fibrillation (CMS/HCC)- Primary Atrial fibrillation Atrial fibrillation (CMS/HCC) Atrial fibrillation Ischemic cardiomyopathy Other specified forms of chronic ischemic heart disease Atrial fibrillation (CMS/HCC) Atrial fibrillation documented in this encounter [facility] Work Phone: History and physical note Author Toy Yeager [facility] April 02, 2023 5:21pm Note Date/Time April 02, 2023 5:16 pm [facility] [address] [place] [address] Hospitalist H&P Signed Patient: Harriett Thakkar MR#: [id number] : 1965 Acct:[id number] Age/Sex: 58 / M Adm Date: 3 Loc: Room: [address] [address] Type: ADM INOo Attending Dr: Toy Yeager MD Copies to: MD Toy Elizondo MD~ HPI DATE OF EXAMINATION: 04/02/23 CHIEF COMPLAINT: Chest pressure HISTORY OF PRESENT ILLNESS: Patient is a 58-year-old morbidly obese gentleman with history of atrial fibrillation currently on Coumadin, coronary artery disease status post PCI in 2020 currently on Plavix, poorly controlled diabetes mellitus with last A1c 7.9,medical noncompliance, hyperlipidemia, hypertension with chronic kidney disease came to the emergency department for ongoing chest pressure and uncomfortableness over the neck area. He also complained about heaviness of the bilateralarms. Patient was shopping last night at [employer] and started feeling above symptoms which are very similar to the heart attack that he had in 2019. Patient rested last night but then woke up with a similar symptoms in felt like coming to the emergency department to have the cardiac evaluation done. In the emergency department his cardiac enzymes were negative. No ST-T changes, vital signs were stable. Laboratory results were all within the normal limit except he has mildly elevated creatinine with 1.46. Patient received 1 L of IV fluid, aspirin and nitroglycerin he was sent to the floor for further management. Patient denies any lightheadedness, diaphoresis. However he felt short of breath and tachycardia. Review of Systems Review of Systems All other systems reviewed & are negative unless noted below or in HPI Constitutional Constitutional: Denies body ache(s), Denies chills and Denies headache(s) Eyes Eyes: Denies blurry vision and Denies photophobia ENT Ears, Nose, Mouth, and Throat: Denies headache(s) Cardiovascular Cardiovascular: Denies syncope Respiratory Respiratory: Denies dyspnea on exertion and Denies hemoptysis Gastrointestinal Gastrointestinal: Denies hematochezia and Denies melena Musculoskeletal Musculoskeletal: Denies deformity and Denies muscle weakness Integumentary/Breasts Skin/Breast: Denies nail changes, Denies rash and Denies unusual bruising Neurologic Neurologic: Denies confusion, Denies convulsions, Denies headache(s), Denies memory loss and Denies syncope Psychiatric Psychiatric: Denies confusion, Denies hallucinations and Denies memory loss Endocrine Endocrine: Denies heat intolerance Hematologic/Lymphatic Hematologic/Lymphatic: Denies easy bruising PMFSH Vaccinated for COVID-19?: Yes Medical History (Updated 04/02/23 @ 17:14 by Toy Yeager MD) A-fib Amputated toe of left foot Amputated toe of right foot 2 toes CAD (coronary artery disease) Diabetes mellitus, type 2 Hyperlipidemia Surgical History History of cardiac catheterization History of coronary angioplasty with insertion of stent History of phacoemulsification of cataract of both eyes with intraocular lens implantation S/P cervical spinal fusion Family History Father Diabetes CAD (coronary artery disease) Pulmonary embolism Mother Diabetes Brother Hypertension Social History Smoking Status: Never smoker Substance Use Type: None Social History Comments: 2 grand daughters Meds Medications and Allergies Allergies Sulfa (Sulfonamide Antibiotics) Allergy (Unknown, Verified 04/02/23 09:42) Unknown Reaction Penicillins Allergy (Verified 04/02/23 09:42) Unknown Reaction Home Medications insulin aspart U-100 100 unit/mL subcutaneous solution See Rx Instructions .Route .COMPLEX diabetes 08/04/17 [History Confirmed 04/02/23] metformin 850 mg tablet 850 mg PO BID diabetes 08/04/17 [History Confirmed 04/02/23] atorvastatin 80 mg tablet 80 mg PO QPM 30 days #30 tabs 11/09/19 [Rx Confirmed 04/02/23] dofetilide 500 mcg capsule 500 mcg PO BID 30 days #60 caps 11/12/19 [Rx Confirmed 04/02/23] nitroglycerin 0.4 mg sublingual tablet (Nitrostat) 0.4 mg sublingual Q5-15M PRN Angina 30 days #25 tabs 11/12/19 [Rx Confirmed 04/02/23] clopidogrel 75 mg tablet 75 mg PO DAILY 07/04/20 [History Confirmed 04/02/23] furosemide 20 mg tablet 60 mg PO DAILY 07/04/20 [History Confirmed 04/02/23] metoprolol succinate 25 mg capsule sprinkle, ext. release 24 hr 25 mg PO BID 07/04/20 [History Confirmed 04/02/23] insulin glargine-yfgn 100 unit/mL subcutaneous solution (Semglee (insulin glargine-yfgn)) 50 unit subcut DAILY 03/01/22 [History Confirmed 04/02/23] midodrine 2.5 mg tablet 5 mg PO BID 03/01/22 [History Confirmed 04/02/23] potassium chloride 10 mEq capsule,extended release 20 meq PO DAILY 03/01/22 [History Confirmed 04/02/23] semaglutide 1 mg/dose (4 mg/3 mL) subcutaneous pen injector (Ozempic) 2 mg subcut QWEEK 03/01/22 [History Confirmed 04/02/23] warfarin 5 mg tablet 5 mg PO DAILY 03/01/22 [History Confirmed 04/02/23] warfarin 7.5 mg tablet 7.5 mg PO DIRECTED 12/15/22 [History Confirmed 04/02/23] Exam Physical Exam Vital Signs: Temp Pulse Resp BP Pulse Ox O2 Del Method 97.8 F 91 H 18 130/88 98 Room Air 04/02/23 13:30 04/02/23 13:30 04/02/23 13:30 04/02/23 13:30 04/02/23 15:55 04/02/23 16:00 Const General: cooperative, no acute distress and well hydrated Orientation: alert, awake and oriented x3 HEENT Head: normocephalic and atraumatic Face and sinus: normal facial exam and sinuses nontender Mouth: oral mucosae normal Eyes Conjunctivae: conjunctivae normal Sclera: sclerae normal Neck Thyroid: thyroid normal Carotids: normal carotid upstroke Lymphatic: no lymphadenopathy noted Resp Effort & Inspection: normal respiratory effort, able to speak in complete sentences and symmetric chest movement Auscultation: clear to auscultation bilaterally Cardio Palpation: normal PMI Rate: regular rate Rhythm: regular rhythm Heart Sounds: S1 normal and S2 normal Pulses: dorsalis pedis present GI Palpation: soft and no hepatosplenomegaly Auscultation: normal bowel sounds Skin General: no rashes or lesions noted and turgor normal Neuro General: tone normal and moves all extremities Speech: speech normal Gait: normal gait Motor: muscle tone normal throughout Sensory Exam: no sensory deficits noted Extrem General: full ROM Psych Appearance: grossly normal Mental Status: mental status grossly normal Mood: congruent mood Affect: normal affect Attitude: cooperative Judgment: judgment good Results Lab Results Labs: Laboratory Last Values Corrected WBC 7.8 X10E3/uL (4.1-10.5) 04/02/23 09:56 Uncorrected WBC Count 7.8 x10E3/uL (4.1-10.5) 04/02/23 09:56 RBC 4.79 X10E6/uL (3.90-5.60) 04/02/23 09:56 Hgb 15.4 g/dL (13.0-17.0) 04/02/23 09:56 Hct 43.1 % (38.8-50.0) 04/02/23 09:56 MCV 89.9 fl (83.5-101) 04/02/23 09:56 MCH 32.1 pg (27.5-35.2) 04/02/23 09:56 MCHC 35.8 g/dL (32.5-35.6) H 04/02/23 09:56 RDW 14.3 % (12.0-14.8) 04/02/23 09:56 Plt Count 179 x10E3/uL (150-450) 04/02/23 09:56 MPV 9.6 fl (6.6-10.1) 04/02/23 09:56 Neut % (Auto) 67.7 % (.) 04/02/23 09:56 Lymph % (Auto) 18.7 % (.) 04/02/23 09:56 Maury % (Auto) 9.6 % (.) 04/02/23 09:56 Eos % (Auto) 3.0 % (.) 04/02/23 09:56 Baso % (Auto) 1.0 % (.) 04/02/23 09:56 Nucleat RBC Rel Count 0.2 /100 WBC (0-0.5) 04/02/23 09:56 Neut # (Auto) 5.3 x10E3/uL (1.8-7.7) 04/02/23 09:56 Lymph # (Auto) 1.5 x10E3/uL (1.00-4.8) 04/02/23 09:56 Maury # (Auto) 0.8 x10E3/uL (0.0-0.8) 04/02/23 09:56 Eos # (Auto) 0.2 x10E3/uL (0.0-0.45) 04/02/23 09:56 Baso # (Auto) 0.1 x10E3/uL (0.0-0.2) 04/02/23 09:56 Monocyte Dist Width 18.18 % (0.00-20.00) 04/02/23 09:56 PT 32.0 Seconds (9.0-12.9) H 04/02/23 09:56 INR 2.8 04/02/23 09:56 APTT 41.1 Seconds (25.1-36.5) H 04/02/23 09:56 PHA Creatinine Clear 77.99 04/02/23 09:56 Sodium 139 mmol/L (136-145) 04/02/23 09:56 Potassium 4.3 mmol/L (3.5-5.1) 04/02/23 09:56 Chloride 102 mmol/L (98-107) 04/02/23 09:56 Carbon Dioxide 26.2 mmol/L (21.0-31.0) 04/02/23 09:56 Anion Gap 15.1 mEq/L (6.0-15.0) H 04/02/23 09:56 BUN 33 mg/dL (7-25) H 04/02/23 09:56 Creatinine 1.46 mg/dL (0.70-1.30) H 04/02/23 09:56 Est GFR (CKD-EPI) 54.714 mL/Min 04/02/23 09:56 Glucose 207 mg/dL (70-100) H 04/02/23 09:56 POC Glucose 112 mg/dl 04/02/23 15:59 POC Glucose Comment Glu2: cleaned meter 04/02/23 15:59 Calcium 9.4 mg/dL (8.6-10.3) 04/02/23 09:56 Total Bilirubin 0.9 mg/dl (0.3-1.0) 04/02/23 09:56 AST 21 U/L (13-39) 04/02/23 09:56 ALT 24 U/L (7-52) 04/02/23 09:56 Alkaline Phosphatase 83 U/L (34-104) 04/02/23 09:56 Total Creatine Kinase 98 U/L (30-223) 04/02/23 15:55 Troponin I High Sens 8.9 pg/mL (0.0-20.0) 04/02/23 15:55 B-Natriuretic Peptide 81.0 pg/mL (5-100) 04/02/23 09:56 Total Protein 6.7 gm/dL (6.4-8.9) 04/02/23 09:56 Albumin 4.1 gm/dL (3.5-5.7) 04/02/23 09:56 Globulin 2.6 gm/dL 04/02/23 09:56 Albumin/Globulin Ratio 1.6 04/02/23 09:56 Assessment & Plan Assessment/Plan (1) Paroxysmal atrial fibrillation: (2) Diabetes mellitus: (3) CKD (chronic kidney disease) stage 3, GFR 30-59 ml/min: (4) Dyspnea: (5) Chest pressure: (6) Hyperlipidemia: Plan PLAN ON ADMISSION: 04/02/2023 Patient be admitted to medical telemetry for closer monitoring of cardiorespiratory and neuro status. We will cycle cardiac enzymes. He will have an EKG in the morning. I have also ordered an echocardiogram. Patient hadlast echocardiogram in 2019. We like to evaluate global echo hypokinesia and left ventricular ejection fraction. Diabetes will be managed with the long-acting insulin and correcting sliding scale. Daily INR will be drawn. Pharmacywill manage his Coumadin. We will keep INR between 2-3. His antiarrhythmic medications along with other home medications will be resumed. GI prophylax will be done with Protonix. DVT prophylaxis be done with SCD. CODE STATUS full. Total time spent on this admission encounter was about 57 minutes. IP vs OBS Justification Based on differential dx, clinical care plan, and risk of adverse events, if untreated, in my clinical judgement this patient requires an acute care setting as: OBSERVATION because of an expectation of an under 2 midnight stay. Estimated length of stay (# of days): 2 Documented By: Toy Yeager MD 04/02/23 1703 Signed By: <Electronically signed by Toy Yeager MD> 04/02/23 1721 [facility] Work Phone: History general Narrative - Reported* Type Description Date Medical History HTN Medical History Hypercholesterolemia Medical History DM Medical History PVD WITH ULCER Medical History CAD w/GA Surgical History Heart Catheterization 2012 Surgical History Diskectomy-cervical Surgical History toe amputations x 4 Hospitalization History See past surgical hx [employer] [facility] Work Phone: Hospital Discharge instructions Additional Instructions Follow-up with your primary care doctor Return to ED for develop worsening symptoms [facility] Work Phone: Progress note Author Toy Yeager [facility] April 03, 2023 1:05pm Note Date/Time April 03, 2023 1:06 pm [facility] [address] [place] [address] Hospitalist Progress Note Signed Patient: Harriett Thakkar MR#: [id number] : 1965 Acct:[id number] Age/Sex: 58 / M Adm Date: 3 Loc: 3T Room: [address] [place] [address] Type: ADM INOo Attending Dr: Toy Yeager MD Copies to: ~ Date of Service: 04/03/2023 Subjective Subjective Narrative: 04/03/2023 Patient was seen at bedside. He is resting comfortably. He was having his lunch. No chest pain or pressure. He was seen by the cardiology. He agrees with the evaluation plan. Patient will have carotid Doppler ultrasound and echocardiogram tomorrow morning. On Admission: Patient is a 58-year-old morbidly obese gentleman with history of atrial fibrillation currently on Coumadin, coronary artery disease status post PCI in 2019 currently on Plavix, poorly controlled diabetes mellitus with last A1c 7.9,medical noncompliance, hyperlipidemia, hypertension with chronic kidney disease came to the emergency department for ongoing chest pressure and uncomfortableness over the neck area. He also complained about heaviness of thebilateral arms. Patient was shopping last night at [employer] and started feeling above symptoms which are very similar to the heart attack that he had in 2019. Patient rested last night but then woke up with a similar symptoms in felt like coming to the emergency department to have the cardiac evaluation done. In the emergency department his cardiac enzymes were negative. No ST-T changes, vital signs were stable. Laboratory results were all within the normal limit except he has mildly elevated creatinine with 1.46. Patient received 1 L of IV fluid, aspirin and nitroglycerin he was sent to the floor for further management. Patient denies any lightheadedness, diaphoresis. However he felt short of breath and tachycardia. Exam Physical Exam Vital Signs: Temp Pulse Resp BP Pulse Ox O2 Del Method 97.9 F 71 18 136/90 97 Room Air 04/03/23 12:04/03/23 12:04/03/23 12:04/03/23 12:04/03/23 12:04/03/23 12:00 Const General: cooperative, no acute distress and well hydrated Orientation: alert, awake and oriented x3 HEENT Head: normocephalic and atraumatic Face and sinus: normal facial exam and sinuses nontender Mouth: oral mucosae normal Eyes Conjunctivae: conjunctivae normal Sclera: sclerae normal Neck Thyroid: thyroid normal Carotids: normal carotid upstroke Lymphatic: no lymphadenopathy noted Resp Effort & Inspection: normal respiratory effort, able to speak in complete sentences and symmetric chest movement Auscultation: clear to auscultation bilaterally Cardio Palpation: normal PMI Rate: regular rate Rhythm: regular rhythm Heart Sounds: S1 normal and S2 normal Pulses: dorsalis pedis present GI Palpation: soft and no hepatosplenomegaly Auscultation: normal bowel sounds Skin General: no rashes or lesions noted and turgor normal Neuro General: tone normal and moves all extremities Speech: speech normal Gait: normal gait Motor: muscle tone normal throughout Sensory Exam: no sensory deficits noted Extrem General: full ROM Psych Appearance: grossly normal Mental Status: mental status grossly normal Mood: congruent mood Affect: normal affect Attitude: cooperative Judgment: judgment good Objective Lab Results 04/03/23 05:52 04/03/23 05:52 Meds Allergies and Active Meds Allergies Sulfa (Sulfonamide Antibiotics) Allergy (Unknown, Verified 04/02/23 09:42) Unknown Reaction Penicillins Allergy (Verified 04/02/23 09:42) Unknown Reaction Active Meds: Active Medications Generic Name Dose Route Start Last Admin Trade Name Freq PRN Reason Stop Dose Admin Acetaminophen 650 mg 04/02/23 15:32 Acetaminophen 325 Mg Tablet PO 04/01/24 15:31 Q6HR PRN Fever Atorvastatin Calcium 80 mg 04/02/23 21:00 04/02/23 21:48 Atorvastatin 80 Mg Tablet PO 04/01/24 20:59 80 mg QPM RADHA Administration Clopidogrel Bisulfate 75 mg 04/03/23 09:00 04/03/23 08:15 Clopidogrel Bisulfate 75 Mg Tablet PO 04/02/24 08:59 75 mg DAILY RADHA Administration Dextrose 0 gm 04/02/23 15:37 Dextrose 50% In Water 25 Gm/50 Ml Syringe IV-PUSH 04/01/24 15:36 PRN PRN Hypoglycemia Diphenhydramine HCl 25 mg 04/02/23 15:32 Diphenhydramine 25 Mg Capsule PO 04/01/24 15:31 Q8H PRN Severe rash or Itching Docusate Sodium 100 mg 04/02/23 21:00 04/03/23 08:15 Docusate 100 Mg Capsule PO 04/01/24 20:59 100 mg BID RADHA Administration Dofetilide 500 mcg 04/02/23 21:00 04/03/23 08:15 Dofetilide 500 Mcg Capsule PO 04/01/24 20:59 500 mcg BID RADHA Administration Furosemide 40 mg 04/04/23 09:00 Furosemide 40 Mg Tablet PO 04/03/24 08:59 DAILY RADHA Glucose 0 gm 04/02/23 15:37 Dextrose 40% Gel 15 Gm Tube PO 04/01/24 15:36 PRN PRN Hypoglycemia Guaifenesin 600 mg 04/02/23 15:32 Guaifenesin 600 Mg Tab.Er.12h PO 04/01/24 15:31 BID PRN Cough Hydralazine HCl 10 mg 04/02/23 15:32 Hydralazine 20 Mg/Ml Vial IV-PUSH 04/01/24 15:31 Q4H PRN Hypertension Magnesium Sulfate 2 gm in 50 mls @ 25 mls/hr 04/02/23 15:32 Magnesium Sulf 2gm-*Swfi* IV 04/01/24 15:31 DAILY PRN Magnesium Level < 1.5 Insulin Aspart 0 units 04/02/23 17:00 04/03/23 12:24 Insulin Aspart 300 Units/3 Ml Insuln.Pen SUBCUT 04/01/24 16:59 4 units TID.WM.HS RADHA Administration Protocol Insulin Glargine 50 units 04/03/23 09:00 04/03/23 08:17 Insulin Glargine 300 Units/3 Ml Insuln.Pen SUBCUT 04/02/24 08:59 50 units DAILY RADHA Administration Labetalol HCl 5 mg 04/02/23 15:32 Labetalol 100 Mg/20 Ml Vial IV-PUSH 04/01/24 15:31 Q4H PRN Hypertension Metformin HCl 850 mg 04/02/23 17:00 04/03/23 08:15 Metformin 850 Mg Tablet PO 04/01/24 16:59 850 mg BID.WITH.MEALS RADHA Administration Metoprolol Succinate 25 mg 04/02/23 21:00 04/03/23 08:15 Metoprolol Succinate 25 Mg Tab.Er.24h PO 04/01/24 20:59 25 mg BID RADHA Administration Midodrine 5 mg 04/02/23 21:00 04/03/23 08:15 Midodrine 5 Mg Tablet PO 04/01/24 20:59 5 mg BID RADHA Administration Morphine Sulfate 2 mg 04/02/23 15:32 Morphine Sulfate 2 Mg/Ml Vial IV-PUSH Q4H PRN Pain Scale 8 - 10 Nitroglycerin 0.4 mg 04/02/23 10:46 Nitroglycerin 0.4 Mg Tab.Subl SUBLINGUAL 04/01/24 10:45 Q5M PRN Chest Pain Ondansetron HCl 4 mg 04/02/23 15:32 Ondansetron 4 Mg/2 Ml Vial IV-PUSH 04/01/24 15:31 Q8H PRN Nausea And Vomiting Potassium Chloride 20 meq 04/03/23 09:00 04/03/23 08:15 Potassium Chloride Er 10 Meq Capsule.Er PO 04/02/24 08:59 20 meq DAILY RADHA Administration Potassium Chloride 20 meq 04/03/23 09:00 Potassium Chloride Er 20 Meq Tab.Er.Prt PO 04/02/24 08:59 DAILY PRN Hypokalemia Sodium Chloride 0 ml 04/02/23 22:00 04/03/23 05:44 Sodium Chloride 0.9 % 10 Ml Syringe IV-PUSH 04/01/24 21:59 10 ml QSHIFT RADHA Administration Warfarin Sodium 1 each 04/02/23 17:02 Warfarin - Pharmacy Dosing MISCELLANE 04/01/24 17:01 ONCE PRN ZZ.Pharmacy Consult Protocol Zolpidem Tartrate 5 mg 04/02/23 15:32 Zolpidem 5 Mg Tablet PO 09/29/23 15:31 HS PRN Sleep A&P - Hospitalist Assessment/Plan (1) Paroxysmal atrial fibrillation: (2) Diabetes mellitus: (3) CKD (chronic kidney disease) stage 3, GFR 30-59 ml/min: (4) Dyspnea: (5) Chest pressure: (6) Hyperlipidemia: Plan 04/03/2023 Patient was evaluated by cardiology this morning. We already ordered echocardiogram. He will get also carotid Doppler ultrasound to see if it is thecause of his dizziness. Depending on the echo finding if there is focal hypokinesia or low ejection fraction then he may go for cardiac cath. Coumadin has been on hold in preparation for possible cardiac catheter tomorrow. Otherwise we will continue with current medical therapy and plan. Patient seemsto be doing well, vital signs are stable. Lab work is within the normal limit. PLAN ON ADMISSION: 04/02/2023 Patient be admitted to medical telemetry for closer monitoring of cardiorespiratory and neuro status. We will cycle cardiac enzymes. He will have an EKG in the morning. I have also ordered an echocardiogram. Patient hadlast echocardiogram in 2019. We like to evaluate global echo hypokinesia and left ventricular ejection fraction. Diabetes will be managed with the long-acting insulin and correcting sliding scale. Daily INR will be drawn. Pharmacywill manage his Coumadin. We will keep INR between 2-3. His antiarrhythmic medications along with other home medications will be resumed. GI prophylax will be done with Protonix. DVT prophylaxis be done with SCD. CODE STATUS full. Total time spent on this admission encounter was about 57 minutes. Documented By: Toy Yeager MD 04/03/23 1302 Signed By: <Electronically signed by Toy Yeager MD> 04/03/23 1305 [facility] Work Phone: Progress note Author Derrek Tay [facility] April 04, 2023 11:33am Note Date/Time April 04, 2023 11:1 5am [facility] [address] [place] [address] Hospitalist Progress Note Signed Patient: Harriett Thakkar MR#: [id number] : 1965 Acct:[id number] Age/Sex: 58 / M Adm Date: 3 Loc: Room: [address] [place] [address] Type: ADM INOo Attending Dr: Derrek Tay DO Copies to: ~ Date of Service: 04/04/2023 Subjective Subjective Narrative: Seen and evaluated, patient denies any overnight issues. He does state that he is not always compliant with his blood pressure medication, mainly his Midodrine, he states that his BP is often 130-140 in the morning and he skips his AM dose, then he often forgets to take his lunchtime dose and typically is compliant with his nighttime dose. He does keep track of his blood pressures on his phone and takes orthostatics everyday. There are numerous blood pressure readings which are elevated (>140 systolic) while sitting and then drop to 80-100 systolic upon standing, there is no pulse rate documented. Had long discussion about orthostatic BP, midodrine, and compliance. Exam Physical Exam Vital Signs: Temp Pulse Resp BP Pulse Ox O2 Del Method 97.5 F L 86 20 108/70 96 Room Air 04/04/23 05:11 04/04/23 08:53 04/04/23 08:53 04/04/23 08:53 04/04/23 08:53 04/04/23 08:53 Narrative: General: Awake alert, no acute distress HEENT: head atraumatic, normocephalic, moist mucous membranes Neck: supple no masses, no lymphadenopathy CVS: regular rate and rhythm, no murmurs or gallops Respiratory: clear to auscultation bilaterally, no wheezing or crackles, symmetric expansion GI: soft, nondistended, nontender, positive bowel sounds with no organomegaly Extremity: moves all extremities, no restrictions of movements, no calf tenderness, no edema Neuro: AOx3, CN II-VII intact. Moves all extremities in all planes of motion. Skin: dry, intact no rashes or lesions Objective Lab Results 04/04/23 05:42 04/04/23 05:42 Meds Allergies and Active Meds Allergies Sulfa (Sulfonamide Antibiotics) Allergy (Unknown, Verified 04/02/23 09:42) Unknown Reaction Penicillins Allergy (Verified 04/02/23 09:42) Unknown Reaction Active Meds: Active Medications Generic Name Dose Route Start Last Admin Trade Name Jeffry PRN Reason Stop Dose Admin Acetaminophen 650 mg 04/02/23 15:32 Acetaminophen 325 Mg Tablet PO 04/01/24 15:31 Q6HR PRN Fever Atorvastatin Calcium 80 mg 04/02/23 21:00 04/03/23 21:25 Atorvastatin 80 Mg Tablet PO 04/01/24 20:59 80 mg QPM RADHA Administration Clopidogrel Bisulfate 75 mg 04/03/23 09:00 04/04/23 08:46 Clopidogrel Bisulfate 75 Mg Tablet PO 04/02/24 08:59 75 mg DAILY RADHA Administration Dextrose 0 gm 04/02/23 15:37 Dextrose 50% In Water 25 Gm/50 Ml Syringe IV-PUSH 04/01/24 15:36 PRN PRN Hypoglycemia Diphenhydramine HCl 25 mg 04/02/23 15:32 Diphenhydramine 25 Mg Capsule PO 04/01/24 15:31 Q8H PRN Severe rash or Itching Docusate Sodium 100 mg 04/02/23 21:00 04/04/23 08:47 Docusate 100 Mg Capsule PO 04/01/24 20:59 Not Given BID RADHA Dofetilide 500 mcg 04/02/23 21:00 04/04/23 08:46 Dofetilide 500 Mcg Capsule PO 04/01/24 20:59 500 mcg BID RADHA Administration Furosemide 40 mg 04/04/23 09:00 04/04/23 08:46 Furosemide 40 Mg Tablet PO 04/03/24 08:59 40 mg DAILY RADHA Administration Glucose 0 gm 04/02/23 15:37 Dextrose 40% Gel 15 Gm Tube PO 04/01/24 15:36 PRN PRN Hypoglycemia Guaifenesin 600 mg 04/02/23 15:32 Guaifenesin 600 Mg Tab.Er.12h PO 04/01/24 15:31 BID PRN Cough Hydralazine HCl 10 mg 04/02/23 15:32 Hydralazine 20 Mg/Ml Vial IV-PUSH 04/01/24 15:31 Q4H PRN Hypertension Magnesium Sulfate 2 gm in 50 mls @ 25 mls/hr 04/02/23 15:32 Magnesium Sulf 2gm-*Swfi* IV 04/01/24 15:31 DAILY PRN Magnesium Level < 1.5 Insulin Aspart 0 units 04/02/23 17:00 04/03/23 21:26 Insulin Aspart 300 Units/3 Ml Insuln.Pen SUBCUT 04/01/24 16:59 3 units TID.WM.HS RADHA Administration Protocol Insulin Glargine 50 units 04/03/23 09:00 04/04/23 08:53 Insulin Glargine 300 Units/3 Ml Insuln.Pen SUBCUT 04/02/24 08:59 50 units DAILY RADHA Administration Labetalol HCl 5 mg 04/02/23 15:32 Labetalol 100 Mg/20 Ml Vial IV-PUSH 04/01/24 15:31 Q4H PRN Hypertension Metformin HCl 850 mg 04/02/23 17:00 04/04/23 08:47 Metformin 850 Mg Tablet PO 04/01/24 16:59 850 mg BID.WITH.MEALS RADHA Administration Metoprolol Succinate 25 mg 04/02/23 21:00 04/04/23 08:47 Metoprolol Succinate 25 Mg Tab.Er.24h PO 04/01/24 20:59 25 mg BID RADHA Administration Midodrine 5 mg 04/04/23 06:00 04/04/23 05:10 Midodrine 5 Mg Tablet PO 04/03/24 05:59 5 mg Q12H ARDHA Administration Morphine Sulfate 2 mg 04/02/23 15:32 Morphine Sulfate 2 Mg/Ml Vial IV-PUSH Q4H PRN Pain Scale 8 - 10 Nitroglycerin 0.4 mg 04/02/23 10:46 Nitroglycerin 0.4 Mg Tab.Subl SUBLINGUAL 04/01/24 10:45 Q5M PRN Chest Pain Ondansetron HCl 4 mg 04/02/23 15:32 Ondansetron 4 Mg/2 Ml Vial IV-PUSH 04/01/24 15:31 Q8H PRN Nausea And Vomiting Potassium Chloride 20 meq 04/03/23 09:00 04/04/23 08:46 Potassium Chloride Er 10 Meq Capsule.Er PO 04/02/24 08:59 20 meq DAILY RADHA Administration Potassium Chloride 20 meq 04/03/23 09:00 Potassium Chloride Er 20 Meq Tab.Er.Prt PO 04/02/24 08:59 DAILY PRN Hypokalemia Warfarin Sodium 1 each 04/02/23 17:02 Warfarin - Pharmacy Dosing MISCELLANE 04/01/24 17:01 ONCE PRN ZZ.Pharmacy Consult Protocol Zolpidem Tartrate 5 mg 04/02/23 15:32 Zolpidem 5 Mg Tablet PO 09/29/23 15:31 HS PRN Sleep A&P - Hospitalist Assessment/Plan (1) Orthostatic hypotension: Plan: - Continue home dose of midodrine, patient is not compliant with home regimen due to elevated pressure in the AM and skipping lunchtime dose. - Carotid US performed, formal read pending (2) Paroxysmal atrial fibrillation: Plan: - Currently NSR, continue home dose of metoprolol (3) Diabetes mellitus: Plan: - Continue glucose checks, hold home metformin, continue home insulin dose - A1C 7.5 (4) CKD (chronic kidney disease) stage 3, GFR 30-59 ml/min: (5) Dyspnea: (6) Chest pressure: Plan: - Echocardiogram pending with cardiology following, further ischemic workup pending (7) Hyperlipidemia: Plan: lipid panel is appropriate, continue home meds Documented By: Derrek Tay DO 04/04/23 1111 Signed By: <Electronically signed by Derrek Tay DO> 04/04/23 1139 [facility] Work Phone: Progress note Author Angel Griggs [facility] April 04, 2023 6:25pm Note Date/Time April 04, 2023 6:25 pm [facility] [address] [place] [address] Cardiology Progress Note Signed Patient: Harriett Thakkar MR#: [id number] : 1965 Acct:[id number] Age/Sex: 58 / M Adm Date: 3 Loc: 3T Room: [address] [address] Type: ADM INOo Attending Dr: Derrek Tay DO Copies to: ~ Date of Service: 04/04/2023 Subjective Principal diagnosis: Dyspnea on exertion Interval history: Patient is stable, currently in normal sinus rhythm with normal heart rate. He is resting comfortably without dyspnea and denies any chest pain. I did review the patient's case with him. I pointed out that since she goes in and out of atrial fibrillation on Tikosyn at 250 mcg twice daily with a QTc measurement of 507 ms it is unlikely that we will be able to push the Tikosyn any higher and lowering the dose will result in more atrial fibrillation. I discussed with himthe option of radiofrequency ablation and he is open to the idea. I will try tomake arrangements for referral to [facility]. Meanwhile I discussed with him also the issue of dyspnea which is multifactorial including untreated sleep apnea. His weight obviously is not helping. Underlying progressive CAD cannot be excluded but unlikely nevertheless, a nuclear stress test will probably be helpful and will be arranged as outpatient and he is agreeable to. Also emphasized the need for the patient to continue to take midodrine to prevent hypotension since he seems to have autonomic dysfunction related to diabetes. I emphasized the need for heart failure therapy to prevent remodelingof the left ventricle due to scar and anterior and septal wall. Exam Physical Exam Vital Signs: Temp Pulse Resp BP Pulse Ox O2 Del Method 97.5 F L 85 20 110/77 95 Room Air 04/04/23 16:10 04/04/23 16:10 04/04/23 16:10 04/04/23 16:10 04/04/23 16:10 04/04/23 16:10 Const General: cooperative, comfortable and no acute distress Nutritional Appearance: obese Orientation: alert, awake and oriented x3 HEENT Head: normal to inspection, normocephalic and atraumatic Ears: hearing grossly normal bilaterally Nose: external nose normal Face and sinus: normal facial exam Eyes Conjunctivae: conjunctivae normal Pupils: PERRL Neck Neck: normal visual inspection, trachea midline and supple Neck mass: No Thyroid: thyroid normal Carotids: normal carotid upstroke Resp Effort & Inspection: normal respiratory effort Auscultation: clear to auscultation bilaterally Cardio Jugular venous pressure: no JVD Palpation: normal PMI Rate: regular rate Rhythm: regular rhythm Heart Sounds: S1 normal and S2 normal GI Inspection: normal to inspection Palpation: soft and no hepatosplenomegaly Auscultation: normal bowel sounds Extrem General: no clubbing, cyanosis or edema Objective Labs 04/04/23 05:42 04/04/23 05:42 Labs: Laboratory Results - last 24 hr 04/03/23 04/04/23 04/04/23 21:01 05:42 05:42 Corrected WBC 6.2 Uncorrected WBC Count 6.2 RBC 4.52 Hgb 14.4 Hct 41.1 MCV 90.9 MCH 31.8 MCHC 35.0 RDW 14.2 Plt Count 129 L MPV 9.5 Neut % (Auto) 66.2 Lymph % (Auto) 20.2 Maury % (Auto) 9.8 Eos % (Auto) 3.1 Baso % (Auto) 0.7 Nucleat RBC Rel Count 0.1 Neut # (Auto) 4.1 Lymph # (Auto) 1.3 Maury # (Auto) 0.6 Eos # (Auto) 0.2 Baso # (Auto) 0.0 PT 39.6 H INR 3.5 PHA Creatinine Clear Sodium Potassium Chloride Carbon Dioxide Anion Gap BUN Creatinine Est GFR (CKD-EPI) Glucose POC Glucose 182 Estimat Average Glucose Hemoglobin A1c Calcium Total Bilirubin AST ALT Alkaline Phosphatase Total Protein Albumin Globulin Albumin/Globulin Ratio 04/04/23 04/04/23 04/04/23 05:42 05:42 06:57 Corrected WBC Uncorrected WBC Count RBC Hgb Hct MCV MCH MCHC RDW Plt Count MPV Neut % (Auto) Lymph % (Auto) Maury % (Auto) Eos % (Auto) Baso % (Auto) Nucleat RBC Rel Count Neut # (Auto) Lymph # (Auto) Maury # (Auto) Eos # (Auto) Baso # (Auto) PT INR PHA Creatinine Clear 107.85 Sodium 139 Potassium 3.6 Chloride 102 Carbon Dioxide 31.7 H Anion Gap 8.9 BUN 23 Creatinine 1.05 Est GFR (CKD-EPI) > 60.0 Glucose 161 H POC Glucose 146 Estimat Average Glucose 169 Hemoglobin A1c 7.5 H Calcium 7.8 L Total Bilirubin 0.7 AST 21 ALT 26 Alkaline Phosphatase 72 Total Protein 6.0 L Albumin 3.7 Globulin 2.3 Albumin/Globulin Ratio 1.6 A&P - Cardiology (1) Chest pressure: Assessment/Problem Details: Multifactorial, ischemic heart disease could potentially be the cause among other issues such as untreated sleep apnea, LV systolic dysfunction, paroxysmal atrial fibrillation. Code(s): R07.89 - Other chest pain Status: Acute Plan: Continue current medical therapy and schedule outpatient Lexiscan MPI (2) Paroxysmal atrial fibrillation: Assessment/Problem Details: On maximally tolerated Tikosyn Code(s): I48.0 - Paroxysmal atrial fibrillation Status: Acute Plan: Continue Tikosyn and anticoagulation, patient is agreeable to be referred for ablation (3) Hyperlipidemia: Code(s): E78.5 - Hyperlipidemia, unspecified Status: Acute Plan: Continue high intensity statin (4) Orthostatic hypotension: Code(s): I95.1 - Orthostatic hypotension Status: Acute Plan: Ensure adequate hydration and continues to utilize midodrine as prescribed (5) History of PTCA 1: Code(s): Z98.61 - Coronary angioplasty status Status: Acute Plan: Continue secondary prevention measures (6) Diabetes mellitus: Code(s): E11.9 - Type 2 diabetes mellitus without complications Status: Acute Plan: Managed by the hospitalist team (7) Dyspnea: Assessment/Problem Details: Multifactorial including obesity, untreated sleep apnea, LV systolic dysfunction, CAD Qualifiers: Dyspnea type: unspecified Qualified Code(s): R06.00 - Dyspnea, unspecified Code(s): R06.00 - Dyspnea, unspecified Status: Acute Plan: Continue risk factors modification and continue current medical therapy and schedule outpatient Lexiscan MPI (8) Sleep apnea: Assessment/Problem Details: Patient had tried previously CPAP machine but never tolerated it Code(s): G47.30 - Sleep apnea, unspecified Status: Acute Plan: Continue to lose weight (9) Abnormal QT interval present on electrocardiogram: Assessment/Problem Details: No indication of ventricular arrhythmias Code(s): R94.31 - Abnormal electrocardiogram [ECG] [EKG] Status: Acute Plan: Advised patient to consider the ablation to avoid antiarrhythmic therapy. Meanwhile we will keep his present dose with no changes since his QTc interval is just over 500 ms Documented By: Angel Griggs MD, [facility] 3 1815 Signed By: <Electronically signed by MD SAYDA Griggs> 04/04/23 1825 [facility] Work Phone: Reason for referral (narrative)* Consultation (Routine) - Authorized Specialty Diagnoses / Procedures Referred By Contac t Referred To Contact Cardiology Diagnoses Paroxysmal atrial fibrillation (CMS/HCC) 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 Procedures Follow Up In Cardiology Angel Griggs MD [address] [place] [address] Angel Griggs MD [address] [place] [address] Referral ID Status Reason Start Date Expiration Date V isits Requested Visits Authorized [id number] Authorized 07/12/2023 07/11/2024 1 1 * Cardiovascular (Routine) - Pending Review Specialty Diagnoses / Procedures Referred By Timothy t Referred To Contact Diagnoses Paroxysmal atrial fibrillation (CMS/HCC) Procedures ECG 12 Lead Angel Griggs MD [address] [facility], [address] [place] [address] Referral ID Status Reason Start Date Expiration Date V isits Requested Visits Authorized [id number] Pending Review 07/12/2023 07/11/2024 1 1 [facility] Work Phone: Reason for visit NarrativeFCCC Potential Procedure 06/13[employer] Other Chief Complaint * HARRIETT THAKKAR is being seen for a 6 month follow-up of. * Patient is in the office for follow-up for the problems noted below. He lost his last week whois a patient of mine for sepsis. From the cardiac standpoint he has no angina but occasionally has breakthrough atrial fibrillation causing tachycardia. He has been on dofetilide and Coumadin both ofwhich have been well-tolerated. His weight is down several pounds from last visit. He denies any angina. His blood pressure is on the lower side but acceptable and he is on midodrine. He has not had any recent blood work and because of this a set of blood work was requested. He has sleep apnea but i ntolerant to CPAP machine. Apart from obesity physical examination was remarkable for a heart rate in the upper normal range at 100 bpm. * Assessment/recommendations: * 1-Paroxysmal atrial fibrillation. Currently normal sinus rhythm on dofetilide and Coumadin with no changes needed. * 2 sleep apnea intolerant to CPAP machine, I pointed out to the patient that this could be a problemleading frequently to atrial fibrillation * 3 single-vessel coronary artery disease status post angioplasty of the anterior descending artery with stent thrombosis leading to acute ST elevation myocardial infarction treated immediately with stenting. He will remain on antiplatelet therapy along with other secondary measures to prevent recurrent coronary artery disease. Nuclear stress test March 2021 revealed no ischemia but anteroseptal apical myocardial infarction * 4 morbid obesity, the patient was advised to continue to work on low-calorie diet to bring his BMI down. He lost nearly 15 pounds in the last several months. This is encouraging * 5 diabetes this has been handled by his family physician.. A1c less than 7 by recent testing * 6 orthostatic hypotension which has better as he use Midodrin 2.5 mg twice daily, the patient was advised that he can adjust the dose upwards if necessary * 7 peripheral neuropathy from diabetes, this is contributing to orthostatic hypotension * 8 hyperlipidemia on atorvastatin, lipid profile was ordered * 9 high-risk medication with antiplatelet therapy, antiarrhythmics and anticoagulants. CBC and basicmetabolic profile ordered * 10 History of pulmonary embolism on chronic Coumadin therapy, no recurrences * 11 resting heart rate 100 bpm. Will increase metoprolol up to 25 mg twice daily * HARRIETT THAKKAR is being seen for a 6 month follow-up of. * Patient is in the office for follow-up accompanied by his daughter. Since he was last seen in the office he had a visit to the emergency department at [facility] for palpitations and was found to be in sinus rhythm with mild hypokalemia and hypomagnesemia and supplements were provided. I was aware of that visit and I did review the records and I updated the patient on the findings. Since then apparently around 22 March he was assessed by his PCP with a Holter monitor for palpitations and apparently the Holter monitor showed abnormalities and what the patient described his ventricular tachycardia. I did not receive a copy of the Holter monitor and I do not have any record of a communication from his PCP in that regard. The patient continued to have symptoms of orthostatic hypotension confirmed by his own readings from home. He is on a small dose of midodrine. Had no syncope and his EKG again today revealed normal sinus rhythm heart rate in the 90s. QTc interval is in the therapeutic range. He denies any angina. He has not had any recent lab data. Blood work request was provided to the patient. His lungs sounded normal. His weight is unchanged from previous visit. He does have severe sleep apnea but has been intolerant to CPAP machine. * Assessment/recommendations: * 1-Paroxysmal atrial fibrillation. Currently normal sinus rhythm on dofetilide and Coumadin with no changes needed. * 2 sleep apnea intolerant to CPAP machine, patient knows that this can lead to atrial fibrillation episodes. * 3 single-vessel coronary artery disease status post angioplasty of the anterior descending artery with stent thrombosis leading to acute ST elevation myocardial infarction treated immediately with stenting. He will remain on antiplatelet therapy along with other secondary measures to prevent recurrent coronary artery disease. Nuclear stress test March 2021 revealed no ischemia but anteroseptal apical myocardial infarction * 4 morbid obesity, the patient was advised to continue to work on low-calorie diet to bring his BMI down. * 5 diabetes this has been handled by his family physician.. A1c just over 7 by recent testing, target 6 7 * 6 orthostatic hypotension, the patient need to increase his midodrine up to 5 mg 3 times daily and he will call me back in 10 days to update me on his blood pressure reading if necessary will increase it further. Patient was advised to utilize compression stockings. * 7 peripheral neuropathy from diabetes, this is contributing to orthostatic hypotension * 8 hyperlipidemia on atorvastatin, lipid profile was ordered * 9 high-risk medication with antiplatelet therapy, antiarrhythmics and anticoagulants. CBC and basicmetabolic profile ordered * 10 History of pulmonary embolism on chronic Coumadin therapy, no recurrences * 11 patient has tendency to retain fluid and because of that he is on Lasix 60 mg daily which can aggravate orthostatic hypotension. * 12- reported abnormalities on the Holter monitor done in March 2022 at the [facility]. I willtry to retrieve a copy of that monitor and update the patient's on the result * HARRIETT THAKKAR is being seen for a 6 month follow-up of. * Patient is in the office for follow-up accompanied by his daughter. Since he was last seen in the office he had 30-day event monitor which I reviewed with him and his daughter. It demonstrated sinus rhythm with occasional atrial fibrillation with RVR and short runs of irregularly irregular wide-complex rhythm suggestive of atrial fibrillation with aberrant conduction. He had no syncopal events and has had no breakthrough prolonged episode of atrial fibrillation while he is on dofetilide. He is currently anticoagulated with Coumadin. He has retired since last summer and continues to have occasional dizziness which are likely caused by autonomic dysfunction from diabetes. His A1c is not undercontrol. He reports no angina and no syncope. His lipids are under excellent control based on recent testing. He has no symptoms suggestive of heart failure. Has no claudications or symptoms of TIA. His cardiac and pulmonary examinations were normal. Lab data since last visit were reviewed with thepatient * Assessment/recommendations: * 1-Paroxysmal atrial fibrillation. Currently normal sinus rhythm on dofetilide and Coumadin with no changes needed. * 2 sleep apnea intolerant to CPAP machine, patient knows that this can lead to atrial fibrillation episodes. * 3 single-vessel coronary artery disease status post angioplasty of the anterior descending artery with stent thrombosis leading to acute ST elevation myocardial infarction treated immediately with stenting. He will remain on antiplatelet therapy along with other secondary measures to prevent recurrent coronary artery disease. Nuclear stress test March 2021 revealed no ischemia but anteroseptal apical myocardial infarction * 4 morbid obesity, the patient was advised to continue to work on low-calorie diet to bring his BMI down. * 5 diabetes this has been handled by his family physician.. A1c not on target yet, managed by PCP * 6 orthostatic hypotension, with intermittent dizziness that is positional. Presently on midodrine which has been well-tolerated. Patient was not orthostatic in the office today. * 7 peripheral neuropathy from diabetes, this is contributing to positional dizziness. * 8 hyperlipidemia on atorvastatin, lipid profile was excellent * 9 high-risk medication with antiplatelet therapy, antiarrhythmics and anticoagulants, well-tolerated * 10 History of pulmonary embolism on chronic Coumadin therapy, no recurrences Patient in the office today for EKG due to Afib and medication change per Dr. Angel Griggs MD. Patient notes that he does have some episodes of afib but most recently has been having increased lightheaded and dizziness when ambulating for extended period of time or sit to standing. Reviewed with Dr. Angel Griggs MD Family History No Family History Records FoundUnknown Family Member Name Dates Details Family history of diabetes m ellitus: Mother, Father(V18.0, Z83.3) Status:Active S/P CABG (coronary artery by pass graft): Father(V45.81, Z95.1) Status:Active Unknown Family Member Name Dates Details S/P CABG (coronary artery by pass graft): Father(V45.81, Z95.1) Status:Active Family history of diabetes m ellitus: Mother, Father(V18.0, Z83.3) Status:Active Relationship Condition Age at Onset Recorded Date/T rylie father Diabetes mellitus Unknown Coronary artery disease Unknown Pulmonary embolism Unknown Not Specified Diabetes mellitus Unknown brother Hypertension Unknown Unknown Family Member Name Dates Details S/P CABG (coronary artery by pass graft): Father(V45.81, Z95.1) Status:Active Family history of diabetes m ellitus: Mother, Father(V18.0, Z83.3) Status:Active Unknown Family Member Name Dates Details S/P CABG (coronary artery by pass graft): Father(V45.81, Z95.1) Status:Active Family history of diabetes m ellitus: Mother, Father(V18.0, Z83.3) Status:Active Unknown Family Member Name Dates Details S/P CABG (coronary artery by pass graft): Father(V45.81, Z95.1) Status:Active Family history of diabetes m ellitus: Mother, Father(V18.0, Z83.3) Status:Active Unknown Family Member Name Dates Details S/P CABG (coronary artery by pass graft): Father(V45.81, Z95.1) Status:Active Family history of diabetes m ellitus: Mother, Father(V18.0, Z83.3) Status:Active Unknown Family Member Name Dates Details S/P CABG (coronary artery by pass graft): Father(V45.81, Z95.1) Status:Active Family history of diabetes m ellitus: Mother, Father(V18.0, Z83.3) Status:Active Unknown Family Member Name Dates Details S/P CABG (coronary artery by pass graft): Father(V45.81, Z95.1) Status:Active Family history of diabetes m ellitus: Mother, Father(V18.0, Z83.3) Status:Active Unknown Family Member Name Dates Details S/P CABG (coronary artery by pass graft): Father(V45.81, Z95.1) Status:Active Family history of diabetes m ellitus: Mother, Father(V18.0, Z83.3) Status:Active Unknown Family Member Name Dates Details S/P CABG (coronary artery by pass graft): Father(V45.81, Z95.1) Status:Active Family history of diabetes m ellitus: Mother, Father(V18.0, Z83.3) Status:Active Unknown Family Member Name Dates Details S/P CABG (coronary artery by pass graft): Father(V45.81, Z95.1) Status:Active Family history of diabetes m ellitus: Mother, Father(V18.0, Z83.3) Status:Active Unknown Family Member Name Dates Details S/P CABG (coronary artery by pass graft): Father(V45.81, Z95.1) Status:Active Family history of diabetes m ellitus: Mother, Father(V18.0, Z83.3) Status:Active Unknown Family Member Name Dates Details S/P CABG (coronary artery by pass graft): Father(V45.81, Z95.1) Status:Active Family history of diabetes m ellitus: Mother, Father(V18.0, Z83.3) Status:Active Unknown Family Member Name Dates Details S/P CABG (coronary artery by pass graft): Father(V45.81, Z95.1) Status:Active Family history of diabetes m ellitus: Mother, Father(V18.0, Z83.3) Status:Active Unknown Family Member Name Dates Details S/P CABG (coronary artery by pass graft): Father(V45.81, Z95.1) Status:Active Family history of diabetes m ellitus: Mother, Father(V18.0, Z83.3) Status:Active Chief Complaint and Reason for Visit Chief Complaint Afib L97.529 AFIB Chief Complaint AFIB R shoulder bleeding Skin ulcer of toe of left foot with fat layer expo Chief Complaint AFIB SOB, DIZZY, ARM PAIN Reason for Visit Chest pressure Chief Complaint AFIB SOB, DIZZY, ARM PAIN Reason for Visit Abnormal QT interval present on electrocardiogram Chest pressure CKD (chronic kidney disease) stage 3, GFR 30-59 ml/min Diabetes mellitus Dyspnea History of PTCA 1 Hyperlipidemia Orthostatic hypotension Paroxysmal atrial fibrillation Sleep apnea Chief Complaint AFIB sob-sent by Advance Directives No Advanced Directives Records Found Advance Directive Response Recorded Date/ Time Advance Directives No July 16, 2017 5:00pm Latest Code Status on File Code Status Date Activated Date Inactivated Comments Full Code 06/29/2023 1:53 PM Question Answer Comments Plan of Care: Code Status Discussion Not Compl eted Decision Maker: Provider Rationale: Patient condition do es not warrant discussion Latest Code Status on File Code Status Date Activated Date Inactivated Comments Full Code 06/29/2023 1:53 PM 06/30/2023 5:22 PM Question Answer Comments Plan of Care: Code Status Discussion Not Compl eted Decision Maker: Provider Rationale: Patient condition do es not warrant discussion Latest Code Status on File Code Status Date Activated Date Inactivated Comments Full Code 08/29/2023 5:41 PM Question Answer Comments Plan of Care: Code Status Discussion Completed Decision Maker: Patient Code Status History Code Status Date Activated Date Inactivated Comments Full Code 06/29/2023 1:53 PM 06/30/2023 5:22 PM Question Answer Comments Plan of Care: Code Status Discussion Not Compl eted Decision Maker: Provider Rationale: Patient condition do es not warrant discussion Advance Directive Response Recorded Date/ Time Advance Directives No July 16, 2017 4:00pm Latest Code Status on File Code Status Date Activated Date Inactivated Comments Full Code 08/29/2023 5:41 PM Question Answer Comments Plan of Care: Code Status Discussion Completed Decision Maker: Patient Code Status History Code Status Date Activated Date Inactivated Comments Full Code 06/29/2023 1:53 PM 06/30/2023 5:22 PM Question Answer Comments Plan of Care: Code Status Discussion Not Compl eted Decision Maker: Provider Rationale: Patient condition do es not warrant discussion Summary Purpose Reason for Referral Specialty Diagnoses / Procedures Referred By Contac t Referred To Contact Cardiology Diagnoses Presence of automatic cardioverter/defibrillator (AICD) Ventricular tachycardia, nonsustained (CMS/HCC) Procedures Cardiac Device Check - Remote MedardoNathan chowdhury, DO [address] [facility] 3, [address] [address] Referral ID Status Reason Start Date Expiration Date Visits Requested Visits Authorized [id number] Authorized Perform Procedure 3 12/31/2023 1 1 Specialty Diagnoses / Procedures Referred By Contac t Referred To Contact Cardiology Diagnoses Primary cardiomyopathy (CMS/HCC) Procedures Cardiac device check - Remote Nathan Au, DO [address] [facility] 3, [address] [address] Referral ID Status Reason Start Date Expiration Date Visits Requested Visits Authorized [id number] Pending Review Perform Procedure 3 07/12/2024 1 1 Additional Source Comments REASON FOR VISIT (unrecogniz ed section and content) Specialty Diagnoses / Procedures Referred By Contac t Referred To Contact Diagnoses Ischemic cardiomyopathy S/P implantation of automatic cardioverter/defibrillator (AICD) Ischemic cardiomyopathy [I25.5] Procedures ICD Dual Implant Lior Villeda MD [address] [facility] 3, [facility] [address] [place] [address] [address] [place] [address] Referral ID Status Reason Start Date Expiration Date Visits Re quested Visits Authorized [id number] 1 1 Reason Comments Follow-up 6m Specialty Diagnoses / Procedures Referred By Contac t Referred To Contact Diagnoses Paroxysmal atrial fibrillation (CMS/HCC) Procedures ECG 12 Lead Angel Griggs MD [address] [facility] 2, [address] [address] Referral ID Status Reason Start Date Expiration Date V isits Requested Visits Authorized [id number] Pending Review 07/12/2023 07/11/2024 1 1 Specialty Diagnoses / Procedures Referred By Contac t Referred To Contact Cardiology Diagnoses Primary cardiomyopathy (CMS/HCC) Procedures Cardiac device check - Remote MedardociaraNathan madsen Roel, DO [address] [place] [address] Referral ID Status Reason Start Date Expiration Date Visits Requested Visits Authorized [id number] Pending Review Perform Procedure 3 07/12/2024 1 1 Specialty Diagnoses / Procedures Referred By Contac t Referred To Contact Cardiology Diagnoses Presence of automatic cardioverter/defibrillator (AICD) Ventricular tachycardia, nonsustained (CMS/HCC) Procedures Cardiac Device Check - Remote MedardociaraNathan madsen Roel, DO [address] [place] [id number] Referral ID Status Reason Start Date Expiration Date Visits Requested Visits Authorized [id number] Authorized Perform Procedure 3 12/31/2023 1 1 Specialty Diagnoses / Procedures Referred By Contac t Referred To Contact Cardiology Diagnoses Presence of automatic cardioverter/defibrillator (AICD) Ventricular tachycardia, nonsustained (CMS/HCC) Procedures Cardiac device check - In Clinic MedardociaraNathan madsen Roel, DO [address], [address] [place] [address] [facility] [id number] [place] [address] Referral ID Status Reason Start Date Expiration Date Visits Requested Visits Authorized [id number] Authorized Perform Procedure 07/20/2023 07/19/2024 1 1 Specialty Diagnoses / Procedures Referred By Contac t Referred To Contact Diagnoses Atrial fibrillation (CMS/HCC) ATRIAL FIB Procedures NM COMPRE EP EVAL ABLTJ ATR FIB PULM VEIN ISOLATION Ablation A-Fib Persistant Lior Villeda MD [address] [place] [address] [address] [place] [address] Referral ID Status Reason Start Date Expiration Date Visits Re quested Visits Authorized [id number] 1 1 Care Teams (unrecognized sec tion and content) Team Status: Inactive Member Role Status Dates Gladys Garcia MD Primary Care Provider Active Bethel Bates , Emergency Provider Active Team Status: Inactive Member Role Status Dates Pineda Steven DPM Attending Provider Active Team Status: Active Member Role Status Dates Gladys Garcia MD Primary Care Provider Active Angel Griggs MD Attending Provider Active Team Status: Inactive Member Role Status Dates Gladys Garcia MD Primary Care Provider Active Nimo Fu , [facility] Emergency Provider Active Team Status: Active Member Role Status Dates Toby Amador MD Primary Care Provider Active Team Status: Active Member Role Status Dates Toby Amador MD Primary Care Provider Active José Luis Coleman , DO Emergency Provider Active Toy Yeager MD Admit Provider, Attending Provide r Active Team Status: Inactive Member Role Status Dates Toby Amador MD Primary Care Provider Active José Luis Coleman , Emergency Provider Active Toy Yeager MD Admit Provider Active Dallas Em MD Other Provider Active Derrek Tay , Attending Provider Active Digital Sales Director Relationship Specialty Start Date End Date Toby Amador MD [address] [place] [address] PCP - General 05/17/23 Digital Sales Director Relationship Specialty Start Date End Date Toby Amador MD [address] [place] [address] PCP - General 05/17/23 Lior Villeda MD [address] [facility] 3, [place] [address] Consulting Physician Cardiology 07/07/23 Digital Sales Director Relationship Specialty Start Date End Date Toby Amador MD [address] [place] [address] PCP - General 05/17/23 Lior Villeda MD [address] [place] [address] Consulting Physician Cardiology 07/07/23 Digital Sales Director Relationship Specialty Start Date End Date Toby Amador MD [facility] [place] [address] PCP - General 05/17/23 Lior Villeda MD [address] [place] [address] Consulting Physician Cardiology 07/07/23 Digital Sales Director Relationship Specialty Start Date End Date Toby Amador MD PCP - General 05/17/23 Lior Villeda MD [address] [place] [address] Consulting Physician Cardiology 07/07/23 Digital Sales Director Relationship Specialty Start Date End Date Toby Amador MD PCP - General 05/17/23 Lior Villeda MD [address] [place] [address] Consulting Physician Cardiology 07/07/23 Digital Sales Director Relationship Specialty Start Date End Date Toby Amador MD PCP - General 05/17/23 Lior Villeda MD [address] [place] [address] Consulting Physician Cardiology 07/07/23 Digital Sales Director Relationship Specialty Start Date End Date Toby Amador MD PCP - General 05/17/23 Lior Villeda MD [address] [place] [address] Consulting Physician Cardiology 07/07/23 Team Status: Inactive Member Role Status Dates Toby Amador MD Primary Care Provider Active José Luis Coleman DO Emergency Provider Active Digital Sales Director Relationship Specialty Start Date End Date Toby Amador MD PCP - General 05/17/23 Lior Villeda MD [address] [place] [address] Consulting Physician Cardiology 07/07/23 Digital Sales Director Relationship Specialty Start Date End Date Toby Amador MD PCP - General 05/17/23 Lior Villeda MD [id number] [place] [address] Consulting Physician Cardiology 07/07/23 Goals (unrecognized section and content) Goals may be documented in a n alternate section (unrecognized sect ion and content) No Status Records FoundNo Status Records FoundNo Status Records FoundNo Status Records FoundNo Status Records FoundNo Status Records FoundNo Status Records FoundNo Status Records FoundNo Status Records FoundNo Status Records Found INFORMATION SOURCE (unrecogn ized section and content) DATE CREATED AUTHOR 12/28/2022 [facility] DATE CREATED AUTHOR AUTHOR'S ORGANIZ ATION 01/20/2023 [facility] DATE CREATED AUTHOR AUTHOR'S ORGANIZ ATION 05/25/2023 [facility] DATE CREATED AUTHOR AUTHOR'S ORGANIZ ATION 06/22/2023 [facility] DATE CREATED AUTHOR AUTHOR'S ORGANIZ ATION 07/15/2023 [facility] DATE CREATED AUTHOR AUTHOR'S ORGANIZ ATION 08/14/2023 [facility] DATE CREATED AUTHOR AUTHOR'S ORGANIZ ATION 09/16/[address] [facility] DATE CREATED AUTHOR AUTHOR'S ORGANIZ ATION 09/22/2023 [facility] DATE CREATED AUTHOR AUTHOR'S ORGANIZ ATION 09/26/2023 [facility] DATE CREATED AUTHOR AUTHOR'S ORGANIZ ATION 09/27/2023 [facility] EPIC Scheduled Active and Recently Administ ered Medications (unrecognized section and content) Medication Order 06/28/2023 06/29/2023 06/30/2023 amiodarone (Pacerone) tablet 200 mg 200 mg, oral, 2 times daily, First dose on Tue06/30/23 at 0900 0919 (Given - Provid er: Minoo Hernandez RN)2100 (Due) atorvastatin (Lipitor) tablet 80 mg 80 mg, oral, Nightly, First dose on Tue06/29/23 at 2100 2152 (Given - Provider: Ina Turner RN) 2100 (Due) furosemide (Lasix) tablet 40 mg 40 mg, oral, Daily, First dose on Tue06/29/23 at 1745 1745 (Not Given - Provider: Minoo Hernandez RN - Reason: Patient/family refused - Comment: Patient does not want this medication at night time - he will take next dose tomorrow morning) 0839 (Given - Provider: Minoo Hernandez RN) glipiZIDE (Glucotrol) tablet 5 mg (CANCELED) 5 mg, oral, 2 times daily before meals, First dose on Tue06/30/23 at 0700, TAKE 1 TABLET BY MOUTH EVERY MORNING AND TAKE 1 TABLET BY MOUTH ONE HOUR BEFORE LUNCH IF BLOOD SUGAR IS OVER 180 0633 (Given - Provid er: Ina Turner RN) insulin glargine (Lantus) injection 65 Units 65 Units, subcutaneous, Nightly, First dose on Tue06/29/23 at 2130 2151 (Given - Provider: Ina Turner, AZAR) 2100 (Due) insulin lispro (HumaLOG) injection 0-5 Units 0-5 Units, subcutaneous, 3 times daily with meals, First dose on Tue06/29/23 at 1745, Insulin Lispro Corrective Scale #1 Hypoglycemia protocol Call LIP unit(s) if Blood Glucose is between 0 - 70 mg/dL 0 unit(s) if Blood glucose is between 71-150 1 unit(s) if Blood glucose is between 151-200 2 unit(s) if Blood glucose is between 201-250 3 unit(s) if Blood glucose is between 251-300 4 unit(s) if Blood glucose is between 301-350 5 unit(s) if Blood glucose is between 351-400 Notify provider unit(s) if Blood Glucose is greater than 400 mg/dL 1828 (Given - Provider: Minoo Hernandez RN) 0800 (Not Given - Provider: Minoo Hernandez RN - Reason: Other - Comment: patient did not eat much breakfast)1223 (Given - Provider: Minoo Hernandez RN)1700 (Due) metoprolol succinate XL (Toprol-XL) 24 hr tablet 25 mg 25 mg, oral, Daily, First dose on Tue06/29/23 at 1745, Do not crush or chew. 1818 (Given - Provider: Minoo Hernandez RN) 0839 (Given - Provider: Minoo Hernandez RN) midodrine (Proamatine) tablet 10 mg 10 mg, oral, 3 times daily, First dose on Tue06/29/23 at 1745, Avoid dosing after the evening meal or within 4 hours of bedtime to prevent supine hypertension unless indicated for vasopressor sparing in the ICU. 181 (Given - Provider: Minoo Hernandez RN) 0203 (Given - Provider: Ina Turner RN)0839 (Given - Provider: Minoo Hernandez RN)1400 (Due - Provider: Manuel Saldana, BernieD) potassium chloride CR (Klor-Con M20) ER tablet 20 mEq 20 mEq, oral, Daily, First dose on Tue06/30/23 at 0900, Best given with food and plenty of water to minimize gastric irritation. Do not crush or chew. 0842 (Given - Provid er: Minoo Hernandez RN) vancomycin (Vancocin) 2,000 mg in dextrose 5 % in water (D5W) 500 mL IV (COMPLETED) 2,000 mg, intravenous, at 270 mL/hr, Administer over 120 Minutes, Once, On Tue06/29/23 at 1400, For 1 dose, Preprocedure, Administer within 120 minutes prior to incision., Dosing of this medication varies based on severity of illness. Does this patient have sepsis or concern for sepsis (probable or documented infection plus systemic manifestations of infection)? No, Suspected Indication (Select all that apply): Surgical Prophylaxis 1400 (Due)1447 (New Bag - Provider: Joe Daley RN) warfarin (Coumadin) tablet 5 mg 5 mg, oral, Daily, First dose on Tue06/29/23 at 1800 1818 (Given - Provider: Minoo Hernandez RN) 1800 (Due) PRN Medication Order 06/28/2023 06/29/2023 06/30/2023 acetaminophen (Tylenol) tablet 650 mg 650 mg, oral, Every 4 hours PRN, pain mild (1-3), first line, Starting on Tue06/29/23 at 1640, If ordered PRN for pain, nurse is permitted to administer this medication for higher pain scores based on patient preference? Yes 1941 (Given - Provider: Ina Turner RN) 0842 (Given - Provider: Minoo Hernandez RN) bupivacaine PF (Marcaine) 0.25 % (2.5 mg/mL) injection (CANCELED) As needed, Starting on Tue06/29/23 at 1507, Intraprocedure 1507 (Given - Provider: Lior Villeda MD) dextrose 10 % in water (D10W) infusion 0.3 g/kg/hr 136 kg (408 mL/hr), intravenous, Once as needed, For blood glucose less than 70 mg/dL after 30 minutes of intervention. Discontinue once blood glucose reaches 100 mg/dL., Starting on Tue06/29/23 at 1737, For 1 dose, Discontinue once blood glucose reaches 100 mg/dL. dextrose 50 % injection 25 g 25 g, intravenous, Every 15 min PRN, For blood glucose less than or equal to 40 mg/dL, Starting on Tue06/29/23 at 1737, May repeat until blood glucose level reaches 100 mg/dL or greater. Push 2 - 3 mL/minute if patient has secure IV access. fentaNYL PF (Sublimaze) injection (CANCELED) As needed, Starting on Tue06/29/23 at 1449, Intraprocedure 1449 (Given - Provider: Joe Daley RN)1510 (Given - Provider: Joe Daley RN) glucagon (Glucagen) injection 1 mg 1 mg, intramuscular, Every 15 min PRN, low blood sugar - see comments, For blood glucose less than or equal to 70 mg/dL and no IV access, Starting on Tue06/29/23 at 1737, Give until blood glucose is 100 mg/dL or greater. If patient DOES NOT HAVE secure IV access & patient is unconscious, NPO or is unable to eat or drink. lidocaine (Xylocaine) 20 mg/mL (2 %) injection (CANCELED) As needed, Starting on Tue06/29/23 at 1507, Intraprocedure 1507 (Given - Provider: Lior Villeda MD) midazolam (Versed) injection (CANCELED) As needed, Starting on Tue06/29/23 at 1450, Intraprocedure 1450 (Given - Provider: Joe Daley RN)1510 (Given - Provider: Joe Daley RN)1525 (Given - Provider: Joe Daley, AZAR)1553 (Given - Provider: Joe Daley, AZAR) nitroglycerin (Nitrostat) SL tablet 0.4 mg 0.4 mg, sublingual, Every 5 min PRN, chest pain, Starting on Tue06/29/23 at 1737, May administer up to 3 doses per episode. sodium chloride 0.9% infusion (COMPLETED) Continuous PRN, Starting on Tue06/29/23 at 1449, Intraprocedure 1449 (New Bag - Provider: Joe Daley RN) traMADol (Ultram) tablet 50 mg 50 mg, oral, Every 6 hours PRN, pain moderate (4-6), second line, Starting on Tue06/29/23 at 1640, If ordered PRN for pain, nurse is permitted to administer this medication for higher pain scores based on patient preference? Yes 2200 (Given - Provider: Ina Turner RN) Scheduled Medication Order 08/29/2023 08/30/2023 08/31/2023 amiodarone (Pacerone) tablet 200 mg 200 mg, oral, Daily, First dose on Tue08/29/23 at 2030 2030 (Not Given - Provider: Alicia Jimenez RN - Reason: See Provider Order) 0905 (Given - Provider: Lai Cabrera RN) 0900 (Given - Provider: Yonathan Nunez RN) apixaban (Eliquis) tablet 5 mg 5 mg, oral, Every 12 hours, First dose on Tue08/29/23 at 2029 2122 (Given - Provider: Alicia Jimenez RN) 0906 (Given - Provider: Lai Cabrera RN)2120 (Given - Provider: Arina Laird RN) 0859 (Given - Provider: Yonathan Nunez RN)2029 (Due) atorvastatin (Lipitor) tablet 80 mg 80 mg, oral, Nightly, First dose on Tue08/29/23 at 2099 2122 (Given - Provider: Alicia Jimenez RN) 2120 (Given - Provider: Arina Laird RN) 2099 (Due) clopidogrel (Plavix) tablet 75 mg 75 mg, oral, Daily, First dose on Tue08/29/23 at 2030 2030 (Not Given - Provider: Alicia Jimenez RN - Reason: Post-procedure) 0906 (Given - Provider: Lai Cabrera RN) 0900 (Given - Provider: Yonathan Nunez RN) colchicine tablet 0.6 mg 0.6 mg, oral, Daily, First dose on Tue08/30/23 at 0900 1300 (Given - Provider: Lai Cabrera RN) 0859 (Given - Provider: Yonathan Nunez RN) furosemide (Lasix) injection 20 mg (COMPLETED) 20 mg, intravenous, Once, On Tue08/30/23 at 1300, For 1 dose 1356 (Given - Provider: Lai Cabrera RN) furosemide (Lasix) tablet 40 mg 40 mg, oral, Daily, First dose on Tue08/29/23 at 2030 2030 (Not Given - Provider: Alicia Jimenez RN - Reason: Post-procedure - Comment: start in am) 0907 (Given - Provider: Lai Cabrera RN) 0859 (Given - Provider: Yonathan Nunez, AZAR) insulin glargine (Lantus) injection 65 Units 65 Units, subcutaneous, Nightly, First dose on Tue08/29/23 at 2099 2120 (Given - Provider: Alicia Jimenez RN) 2120 (Given - Provider: Arina Laird, AZAR) 2099 (Due) metoprolol succinate XL (Toprol-XL) 24 hr tablet 25 mg 25 mg, oral, Daily, First dose on Tue08/29/23 at 2029, Do not crush or chew. 2029 (Not Given - Provider: Alicia Jimenez RN - Reason: See Provider Order) 0904 (Given - Provider: Lai Cabrera RN) 0900 (Given - Provider: Yonathan Nunez RN) midodrine (Proamatine) tablet 10 mg 10 mg, oral, 3 times daily (0900,1400,1900), First dose on Tue08/29/23 at 2114, Avoid dosing after the evening meal or within 4 hours of bedtime to prevent supine hypertension unless indicated for vasopressor sparing in the ICU. 2114 (Not Given - Provider: Alicia Jimenez RN - Reason: Order parameters not met - Comment: SBP 160) 0905 (Given - Provider: Lai Cabrera RN)1400 (Not Given - Provider: Lai Cabrera RN - Reason: Contraindicated - Comment: 163/90)2120 (Given - Provider: Arina Laird, AZAR) 0900 (Not Given - Provider: Yonathan Nunez RN - Reason: Change in vital signs - Comment: BP 150/90)1400 (Not Given - Provider: Yonathan Nunez RN - Reason: Order parameters not met)1900 (Due) potassium chloride CR (Klor-Con M20) ER tablet 20 mEq 20 mEq, oral, Daily, First dose on Tue08/29/23 at 2029, Best given with food and plenty of water to minimize gastric irritation. Do not crush or chew. 2029 (Not Given - Provider: Alicia Jimenez RN - Reason: Post-procedure) 0906 (Given - Provider: Lai Cabrera RN - Comment: lior) 0859 (Given - Provider: Yonathan Nunez RN) sennosides-docusate sodium (Sylwia-Colace) 8.6-50 mg per tablet 2 tablet 2 tablet, oral, 2 times daily, First dose on Tue08/29/23 at 2100, Bowel Regimen - for prevention of constipation Hold for loose stools 1954 (NOV Hold - Provider: Automatic Transfer Provider - Reason: Unreviewed Transfer Orders)2027 (MAR Unhold - Provider: Alicia Jimenez, RN)2100 (Not Given - Provider: Alicia Jimenez RN - Reason: Patient/family refused) 09 (Given - Provider: Lai Cabrera, AZAR)2120 (Given - Provider: Arina Laird, AZAR) 0859 (Given - Provider: Yonathan Nunez RN)2099 (Due) sodium phosphates (Fleets) 19-7 gram/118 mL enema 1 enema (COMPLETED) 1 enema, rectal, Once, On Tue08/30/23 at 1300, For 1 dose 1708 (Given - Provider: Lai Cabrera RN) vancomycin in dextrose 5 % (Vancocin) IVPB 1 g (COMPLETED) 1 g, intravenous, at 200 mL/hr, Administer over 60 Minutes, Once, On Tue08/29/23 at 0845, For 1 dose, premix bag, Dosing of this medication varies based on severity of illness. Does this patient have sepsis or concern for sepsis (probable or documented infection plus systemic manifestations of infection)? No, Suspected Indication (Select all that apply): Surgical Prophylaxis 0846 (Given - Provider: Tabitha Denis APRN-LICENSED LAND SURVEYOR) Continuous Medication Order 08/29/2023 08/30/2023 08/31/2023 lactated Ringer's infusion 100 mL/hr, intravenous, Continuous, Starting on Tue08/29/23 at 1500, Recovery (only) 1500 (Due) PRN Medication Order 08/29/2023 08/30/2023 08/31/2023 dextrose 10 % in water (D10W) infusion 0.3 g/kg/hr 146 kg (438 mL/hr), intravenous, Once as needed, For blood glucose less than 70 mg/dL after 30 minutes of intervention. Discontinue once blood glucose reaches 100 mg/dL., Starting on Tue08/29/23 at 202, For 1 dose, Discontinue once blood glucose reaches 100 mg/dL. dextrose 50 % injection 25 g 25 g, intravenous, Every 15 min PRN, For blood glucose less than or equal to 40 mg/dL, Starting on Tue08/29/23 at 2027, May repeat until blood glucose level reaches 100 mg/dL or greater. Push 2 - 3 mL/minute if patient has secure IV access. glucagon (Glucagen) injection 1 mg 1 mg, intramuscular, Every 15 min PRN, low blood sugar - see comments, For blood glucose less than or equal to 70 mg/dL and no IV access, Starting on Tue08/29/23 at 2027, Give until blood glucose is 100 mg/dL or greater. If patient DOES NOT HAVE secure IV access & patient is unconscious, NPO or is unable to eat or drink. heparin 1,000 unit/mL injection (CANCELED) As needed, Starting on Tue08/29/23 at 0948, Intraprocedure 0948 (Given - Provider: Denton Hidalgo RN - Comment: for anticoagulation, verifed by Thuy ASKEWdose confirmed with Dr. Villeda)1005 (Given - Provider: Denton Hidalgo RN - Comment: For anticoagulation, verifed by Thuy ASKEW)1105 (Given - Provider: Denton Hidalgo RN - Comment: for anticoagulation, verified by Thuy ASKEW)1121 (Given - Provider: Denton Hidalgo RN - Comment: for anticoagulation, verified by Thuy ASKEW)1220 (Given - Provider: Denton Hidalgo RN - Comment: for procedure) heparin 25,000 Units in dextrose 5% 250 mL (100 Units/mL) infusion (premix) (CANCELED) Continuous PRN, Starting on Tue08/29/23 at 1009, Intraprocedure 1009 (New Bag - Provider: Denton Hidalgo RN - Comment: for anticoagulation, verified by Thuy ASKEW)1105 (Rate/Dose Change - Provider: Denton Hidalgo RN - Comment: for anticoagulation, verified by Thuy ASKEW)1138 (Rate/Dose Change - Provider: Joe Daley RN - Comment: for anticoagulation, verifed by Ronal KRAUSE)1230 (Stopped - Provider: Denton Hidalgo RN) heparin PF 1,000 units in sodium chloride 0.9% 500 mL (2 unit/mL) flush infusion (CANCELED) Continuous PRN, Starting on Tue08/29/23 at 0936, Intraprocedure 0938 (New Bag - Provider: Denton Hidalgo RN - Comment: KVO. sheath)0942 (New Bag - Provider: Denton Hidalgo RN - Comment: KVO. sheath)1235 (Stopped - Provider: Denton Hidalgo RN) sodium chloride 0.9% infusion (CANCELED) Continuous PRN, Starting on Tue08/29/23 at 0935, Intraprocedure 0935 (New Bag - Provider: Denton Hidalgo RN - Comment: KVO/medications sheath)1235 (Stopped - Provider: Denton Hidalgo RN) FOR RECORDS PERTAINING TO PATIENTS WHO ARE OR HAVE BEEN ENROLLED IN A CHEMICAL DEPENDENCY/SUBSTANCEABUSE PROGRAM, SOME INFORMATION MAY BE OMITTED. This clinical summary was aggregated from multiple sources. Caution should be exercised in using it in the provision of clinical care. This summary normalizes information from multiple sources, and as a consequence, information in this document may materially change the coding, format and clinical context of patient data. In addition, data may be omitted in some cases. CLINICAL DECISIONS SHOULD BE BASED ON THE PRIMARY CLINICAL RECORDS. [employer] provides no warranty or guarantee of the accuracy or completeness of information in this document.
[2023-10-01 10:38] LABS: Basophils Absolute Auto 0.1 10^3/uL (0.0-0.1); Basophils Percent Auto 0.7 % (0.2-2.0); Eosinophils Absolute Auto 0.1 10^3/uL (0.0-0.7); Eosinophils Percent Auto 1.9 % (0.9-7.0); Hematocrit 42.4 % (42.0-54.0); Hemoglobin 14.4 g/dL (14.0-18.0); Immature Granulocytes Abs Auto 0.05 10^3/uL (0.00-0.03); Immature Granulocytes Pct Auto 0.7 % (0.0-0.5); Lymphocytes Absolute Auto 1.3 10^3/uL (1.2-3.8); Lymphocytes Percent Auto 17.6 % (20.5-60.0); Mean Corpuscular Hemoglobin 31.7 pg (25.9-34.0); Mean Corpuscular Volume 93.4 fL (80.0-94.0); Mean Platelet Volume 10.4 fL (9.5-13.5); Monocytes Absolute Auto 0.6 10^3/uL (0.3-0.8); Monocytes Percent Auto 8.4 % (1.7-12.0); Neutrophils Absolute Auto 5.3 10^3/uL (1.4-6.5); Neutrophils Percent Auto 70.7 % (43.0-75.0); Platelet Count 255 10^3/uL (150-450); Red Blood Count 4.54 10^6/uL (4.70-6.10); Red Cell Distribution Width 13.5 % (11.0-15.0); White Blood Count 7.5 10^3/uL (4.0-11.0)
[2023-10-01 12:15] LABS: Alanine Aminotransferase 36 U/L (16-63); Albumin Globulin Ratio 0.9; Albumin Level 3.1 g/dL (3.4-5.0); Alkaline Phosphatase 110 U/L (46-116); Anion Gap 11.1; Aspartate Amino Transferase 20 U/L (15-37); BUN Creatinine Ratio 14.5; Bilirubin Direct 0.2 mg/dL (0.0-0.2); Bilirubin Total 0.6 mg/dL (0.2-1.0); Calcium 8.9 mg/dL (8.5-10.1); Chloride 101 mmol/L (98-107); Chol HDL Ratio 2.9; Cholesterol 100 mg/dL (<=200); Estimated GFR (African America >60 (>=60); Estimated GFR (Non-African Ame 59 (>=60); Globulin 3.5 g/dL; Glucose 185 mg/dL (74-106); HDL Cholesterol 34 mg/dL (40-60); Potassium 4.1 mmol/L (3.5-5.1); Sodium 139 mmol/L (136-145); Total Protein 6.6 g/dL (6.4-8.2); Triglycerides 54 mg/dL (<=150); VLDL CHOLESTEROL 10.8 mg/dL
[2023-10-01 12:24] LABS: Prostate Specific Antigen Scrn 1.05 ng/mL (<=4.00)
== END 2023-10-01 10:10 | disposition home or self-care (01) ==
LOC: LAB 10:11
PROVIDERS: PCP Family Medicine; Visit Provider Family Medicine
DX: Z00.00 Encounter for general adult medical examination without abnormal findings (principal)
CPT/HCPCS: 36415; 80048; 80061; 80076; 84443; 85025; G0103

== ENCOUNTER 2023-11-26 10:29 | Outpatient (OUT) | payer OTHER, SELFPAY ==
--- OUTSIDE RECORDS SUMMARY | 2023-11-26 10:34 | XMS_ITS | CCD ---
Author Name Unknown Address [address] [place] [address] Organization [facility] Care Team Providers Care Silverware Buffer Name Role Phone Gladys Garcia Unavailable Unavailable Unavailable Farnaz Collazo Unavailable MD Gladys Garcia Primary Care Provider DO Bethel Bates [facility] Attending Provider MD Angel Griggs Attending Provider Ugo Connelly Unavailable Tabitha Shaw Unavailable Jama Lopez Unavailable MD Gladys Garcia Primary Care Provider MD Angel Griggs Attending Provider Nickie [facility] Nimo Madsen Emergency Provider NAYLA Bustos Attending Provider DR ANGEL GRIGGS Admitting Unavailable [...] Unavailable MD Gladys Garcia Primary Care Provider [phone] MD Angel Griggs Attending Provider MD Toby Amador Primary Care Provider [phone] DO José Luis Coleman Emergency Provider MD Toy Yeager Admit Provider MD Toy Yeager Attending Provider MD Naveen Emmayra Other Provider DO Derrek Tay Attending Provider Toby Amador Unavailable Dr. Gladys Garcia Primary Care Unavailab le Angel Griggs Attending Unavailable Angel Griggs Attending Unavailable Dr. Toby Amador Primary Care Noemi Amador MD, Toby Tejada Primary Care Provider Lior Villeda MD Unavailable Toby Amador MD Primary Care Provider Toby Amador MD Primary Care Provider U navailTOBY Juárez Primary Care UnavailToby Aldana MD Primary Care Provider MD Gladys Garcia Primary Care Provider MD Angel Griggs Attending Provider [phone] MD Toby Amador Primary Care Provider DO José Luis Coleman Emergency Provider Dr. Toby Amador Primary Care Lior Oconnor Referring Unavailable Lior Villeda Attending Unavailable Garcia, Dr. Gladys Kelsey Primary Care Unavailab le Griggs, Dr. Angel Robb Referring Shellie vailable Griggs, Dr. Angel Robb Attending Shellie vailable Griggs, Dr. Angel Robb Referring Shellie vailable Griggs, Dr. Angel Robb Attending Shellie vailable Garcia, Dr. Gladys Kelsey Primary Care Unavailab le Garcia, Dr. Gladys Kelsey Primary Care Unavailab le Griggs, Dr. Angel Robb Attending Shellie vailable Garcia, Dr. Gladys Kelsey Primary Care Unavailab le Garcia, Dr. Gladys Kelsey Primary Care Unavailab le Indu, MD Ortiz Referring Provider Toby Amador MD Primary Care Provider DO Dylon Weiss Emergency Provider [phone] MD Daniela Gore Admit Provider MD Daniela Gore Attending Provider AZAR Rodrigez Other Provider Unavailable DO Michael Clifford Other Provider MD Lai Bonner Other Provider MD Dallas Em Other Provider MD Andre Mac Other Provider ITTO Guerra Other Provider MD Brittany Calloway Other Provider MD Guido Romero Other Provider MD Kelvin Koroma Other Provider SABA Baxter- Raquel Yousif Other Provider MD Lyssa Jin Other Provider DO Dylon Weiss Emergency Provider MD Daniela Gore Admit Provider MD Daniela Gore Attending Provider AZAR Rodrigez Other Provider Unavailable DO Michael Clifford Other Provider MD Lai Bonner Other Provider MD Dallas Em Other Provider MD Andre Mac Other Provider TITO Guerra Other Provider MD Brittany Calloway Other Provider MD Guido Romero Other Provider MD Kelvin Koroma Other Provider Vee [facility] Raquel Youisf Other Provider MD Lyssa Jin Other Provider ANGEL GRIGGS Referring Unavailable NADERER, [facility] Primary Care Unavailabl e TITO Rios Other Provider OSCARERER, TOBY RAMONITA Primary Care Unavailabl e LORENE VERNON Referring Unavailable NADERER, [facility] Primary Care Unavailabl e ANGEL GRIGGS Attending Unavailable NADEREJensen, TOBY RAMONITA Primary Care Unavailabl e ANGEL GRIGGS Attending Unavailable ANGEL GRIGGS Referring Unavailable NADERER, TOBY RAMONITA Primary Care Unavailabl e ANGEL GRIGGS Referring Unavailable NADERER, [facility] Primary Care Unavailabl e DALLAS EM Referring Unavailable NADERER, [facility] Primary Care Unavailabl e MARIELENA RESTREPO Attending Unavailable NADERER, TOBY Attending Unavailable HEATHER VERA Attending Unavailable PINEDA BUSTOS Attending Unavailable NADERER, TOBY Attending Unavailable LIOR VILLEDA Referring Unavailable NADERER, TOBY RAMONITA Primary Care Unavailabl e NATHAN AU Referring Unavailable NADERER, TOBY RAMONITA Primary Care Unavailabl e JESS VILLEDASHANK Admitting Unavailable LIOR VILLEDA Attending Unavailable NADERERTOBYONY Primary Care Unavailabl e NATHAN AU Referring Unavailable NADERER, TOBY TAVARESONY Primary Care Unavailabl e NATHAN AU Referring Unavailable NADERER, TOBY RAMONITA Primary Care Unavailabl e NATHAN AU Referring Unavailable NADERER, TOBY RAMONITA Primary Care Unavailabl e VILLEDA, LIOR Referring Unavailable NADERER, TOBY RAMONITA Primary Care Unavailabl e VILLEDA, LIOR Referring Unavailable NADERER, TOBY RAMONITA Primary Care Unavailabl e Griggs, Ortiz Referring Unavailable Griggs, Ortiz Attending Unavailable Griggs, Ortiz Admitting Unavailable Naderer, Toby Primary Care Unavailable Griggs, Ortiz Attending Unavailable GarciaGladys lemons Primary Care Unavailable Griggs, Ortiz Admitting Unavailable Naderer, Toby Primary Care Unavailable Pineda Bustos Attending Unavailable Tenisha, Pineda R. Admitting Unavailable Bullimore, Nimo E Admitting Unavailable GarciaGladys Primary Care Unavailable Bullimore, Nimo E Attending Unavailable VirginiaJosé Luis muniz Admitting Unavailable José Luis Coleman Attending Unavailable Naderer, Toby Primary Care Unavailable Dallas Em Consulting Unavailable Derrek Tay Attending Unavailable Naderer, Toby Primary Care Unavailable Toy, Toy Admitting Unavailable Darcy Rodrigez Consulting Unavailable Daniela Gore Admitting Unavailable Naderer, Toby Primary Care Unavailable Daniela Gore Attending Unavailable Michael Clifford Consulting Unavailable Griggs, Ortiz Consulting Unavailable Lai Bonner Consulting Unavail able Dallas Em Consulting Unavailable Andre Mac Consulting Unavailab Lynnette Hardy Consulting Unavailable Brittany Calloway Consulting Unavailable Nick, Guido Meeks Consulting Unavailab Kelvin Hamm Consulting Unavailable Raquel Baxter Consulting Unavailable Lyssa Jin Consulting Unavailable Pineda Bustos RShahriar Admitting Unavailable Pineda Bustos Attending Unavailable Allergies Allergy Classification Reported Allergen(s) Allergy Type Date of Onset Reaction(s) Facility (19 sources) Angiotensin Converting Enzyme (Paulette) Inhibitors; Translations: [PAULETTE Inhibitors] Allergy to drug (finding) 06-12-20 23 Hypotension [facility] (20 sources) Penicillins; Translations: [Penicillins] Allergy to drug (finding) 03-01-20 22 Unknown Reaction [facility] (20 sources) Sulfamethoxazole; Translations: [sulfa] Drug Allergy 06-12-20 23 Unknown, Rash [facility] DO Work Phone: (20 sources) penicillAMINE Drug Allergy 11-19-19 21 Unknown [facility] (11 sources) Sulfonamides (Antibiotic); Translations: [Sulfa (Sulfonamide Antibiotics)] Allergy to substance 03-01-20 22 Unknown Reaction [facility] (1 source) Penicillins Drug allergy (disorder) 06-04-20 14 [facility] Rep[facility] (1 source) Sulfamethoxazole / Trimethoprim Drug Allergy 01-27-20 21 [facility] (1 source) Sulfonamides (Antibiotic) Drug allergy (disorder) 06-04-20 14 [facility] (1 source) Penicillin; Translations: [penicillin] Drug Allergy [facility] Repository (1 source) Sulfonamides (Antibiotic); Translations: [sulfa drugs] Propensity to adverse reactions (disorder) [facility] Repository (20 sources) Angiotensin-convert ing enzyme inhibitor agent Drug Allergy 06-12-[address] [facility] (20 sources) Penicillins Drug Allergy 06-12-[address] [facility] Work Phone: (4 sources) Sulfamethoxazole; Translations: [SULFAMETHOXAZOLE] Drug Allergy 06-12-20 23 [facility] Repository (1 source) penicillAMINE Drug Allergy 11-19-19 21 [facility] Repository (1 source) Penicillins Drug allergy (disorder) 04-02-20 23 [facility] Repository Medications Current Medications Medication Drug Class(es) [...] Yes amiodarone hydrochloride 200 mg oral tablet (20 sources) Antiarrhythmic Start: 10-30-2023 End: 10-31-2024 take 1 tablet by mouth three times daily amiodarone (Pacerone) 200 mg tablet Indications: Paroxysmal atrial fibrillation with rapid ventricular response (CMS/HCC) Take 1 tablet (200 mg) by mouth 3 times a day. 270 tablet 3 11/01/2023 10/31/2024 Active Start: 10-04-2023 End: 10-30-2023 take 200 mg by mouth once daily Amiodarone Discontinue d 200 MG PO Daily October 19, 2023 12:00am October 30, 2023 2:29pm Start: 07-22-2023 End: 09-20-2023 amiodarone (Pacerone) 200 [...] 200 mg apixaban 5 mg oral tablet (20 sources) Factor Xa Inhibitor Start: 10-19-2023 End: 10-20-2023 take 1 tablet by mouth every twelve hours Apixaban (Eliquis) 5 mg tablet Active 5 MG PO Q12H 60 October 20, 2023 2:42pm Start: 08-29-2023 take 1 tablet by shaquille th every twelve hours 5 mg, oral, Every 12 hours, First dose on Tue08/29/23 at 2029 Start: 08-29-2023 End: 10-20-2024 take 1 tablet by mouth twice daily apixaban (Eliquis) 5 mg tablet Indications: Paroxysmal atrial fibrillation (CMS/HCC) , Atrial fibrillation (CMS/HCC) Take 1 tablet (5 mg) by mouth 2 times a day. 180 tablet 3 10/21/2023 10/20/2024 Active Start: 10-26-2019 End: 03-01-2022 take 1 [...] mg docusate sodium 50 mg / sennosides, jail 8.6 mg oral tablet (1 source) Start: 08-29-2023 take 2 tablets by mouth twice daily 2 tablet, oral, 2 times daily, First dose on Tue08/29/23 at 2100 Bowel Regimen - for prevention of constipation H old for loose stools doxycycline hyclate 100 mg oral capsule (11 sources) Tetracycline-cla ss Drug Start: 06-30-2023 End: [...] reaches 100 mg/dL., Starting on Tue08/29/23 at 2028, For 1 dose Discontinue once blood glucose [...] ctive insulin glargine 100 unt/ml injectable solution (12 sources) Insulin Analog Start: 08-29-2023 inject 65 [...] UNIT SUBCUT Daily March 01, 2022 12:00am Insulin Glargine-Yfgn (Semglee(Insulin Glargine-Yfgn)) 100 unit/mL solution (5 sources) Start: 03-01-2022 Insulin Glargi ne-Yfgn (Semglee(Insulin Glargine-Yfgn)) 100 unit/mL solution Active 50 UNIT SUBCUT Daily February 28, 2022 11:00pm insulin glargine-yfgn (Semglee,insulin glargine-yfgn,) 100 unit/mL pen (16 sources) Start: 10-06-2021 End: 10-28-2023 insulin glargine-yfgn (Semglee,insulin glargine-yfgn,) 100 unit/mL pen Inject 65 Units under the skin once daily at bedtime. 0 10/06/2021 10/28/2023 Discontinued (Therapy completed) Start: 10-06-2021 insulin glargi ne-yfgn (Semglee,insulin glargine-yfgn,) 100 unit/mL pen Inject 65 Units under the skin once daily at bedtime. 0 10/06/2021 Active insulin lispro 100 unt/ml injectable solution (1 source) Insulin Analog Start: 06-29-2023 0-5 Units, subcutaneous, 3 times daily with meals, First dose on Tue06/29/23 at 1745 Insulin Lispro Corrective Scale #1 Hypoglycemia protocol [...] Blood Glucose is greater than 400 mg/dL magnesium oxide 400 mg oral tablet (12 sources) Start: 11-10-2023 End: 11-09-2024 take 1 tablet by mouth once daily magnesium oxide (Mag-Ox) 400 mg tablet Indications: History of NV (myocardial infarction) Take 1 tablet (400 mg) by mouth once daily. 90 tablet 3 11/10/2023 11/09/2024 Active Start: 10-30-2023 End: 11-10-2023 take 400 mg by mouth once daily Magnesium Oxide Active 400 MG PO Daily October 30, 2023 12:00am Start: 04-16-2022 take 1 tablet by shaquille th twice daily MAGnesium-Oxide 400 (240 Mg) MG Oral Tablet TAKE 1 TABLET BY MOUTH TWICE DAILY Quantity: 60 Refills: 0 Ordered: 20-Apr-2022 DO Start : 16-Apr-2022 Complete take 1 tablet by shaquille th three times daily Magnesium Oxide 400 MG Oral Tablet TAKE 1 TABLET 3 times daily Quantity: 0 Refills: 0 Ordered: 11-Jan-2023 DO Active metFORMIN hydrochloride 850 mg oral tablet (20 sources) Biguanide Start: 08-04-2017 take 1 tablet by mouth twice daily metFORMIN (Glucophage) 850 mg tablet Take 1 tablet (850 mg) by mouth 2 times a day. 0 04/22/2020 Active 24 hr metoprolol succinate 50 mg extended release oral tablet (20 sources) beta-Adrenergic Cady Start: 11-01-2023 End: 10-31-2024 take 1 tablet by mouth once daily metoprolol succinate XL (Toprol-XL) 50 mg 24 hr tablet Indications: Paroxysmal atrial fibrillation with rapid ventricular response (CMS/HCC) Take 1 tablet (50 mg) by mouth once daily. Do not crush or chew. 90 tablet 3 11/01/2023 10/31/2024 Active Start: 10-30-2023 take 50 mg by mouth once daily Metoprolol Succinate Active 50 MG PO Daily October 30, 2023 10:22am Start: 06-29-2023 End: 10-17-2024 take 25 mg by mouth once daily Metoprolol Succinate Di scontinued 25 MG PO Daily October 19, 2023 12:00am October 30, 2023 2:29pm Start: 12-16-2021 End: 06-30-2023 take 1 tablet by mouth twice daily metoprolol succinate XL (Toprol-XL) 25 mg 24 hr tablet Take 1 tablet (25 mg) by mouth 2 times a day. 0 12/16/2021 06/30/2023 Discontinued (Stop Taking at Discharge) Start: 07-04-2020 End: 10-19-2023 take 25 mg by mouth twice daily Metoprolol Succinate Discontinued 25 MG PO Twice daily July 03, 2020 11:00pm October 19, 2023 10:05am Start: 07-04-2020 take 25 mg by mouth [...] tablet (20 sources) alpha-Adrenergic Agonist Start: 04-20-2023 End: 10-17-2024 take 1 tablet by mouth three times daily midodrine (Proamatine) 10 mg tablet Indications: Hypotension, unspecified hypotension type Take 1 tablet (10 mg) by mouth 3 times a day. 270 tablet 3 10/18/2023 10/17/2024 Active Start: 07-12-2022 End: 07-12-2023 take 2 tablets [...] 12-Jul-2022 Active dose increased Start: 03-01-2022 take 10 mg by mouth three times daily Midodrine Active 10 MG PO Three times daily February 28, 2022 11:00pm Start: 03-01-2022 take 5 mg by mouth t hree times daily Midodrine Active 5 MG PO Three times daily February 28, 2022 11:00pm Start: 03-01-2022 take 5 mg by mouth [...] 09-Oct-2021 Active take 1 tablet by shaquille twice daily Midodrine HCl - 2.5 MG [...] ozempic (2 mg/dose) 8 mg/3ml solution pen-injector (2 sources) inject 2 mg by subcutaneous injection every week Ozempic (2 MG/DOSE) 8 MG/3ML 2mg Subcutaneous once a week Active Ozempic 2 mg/dose (8 mg/3 mL) pen injector (9 sources) Start: 08-30-2023 inject 2 mg by subcutaneous injection every week Ozempic 2 mg/dose (8 mg/3 mL) pen injector INJECT 2 MG UNDER THE SKIN EVERY WEEK 0 08/30/2023 Active potassium 99 mg extended release oral [...] 27-Jul-2021 DO Start : 17-Nov-2020 Active Semaglutide (10 sources) Start: 03-01-2022 inject 1 mg by [...] March 01, 2022 12:00am semaglutide (Ozempic) 1 mg/d ose (4 mg/3 mL) pen injector (11 sources) Start: 07-02-2021 End: 10-18-2023 semaglutide (Ozempic) 1 mg/d ose (4 mg/3 mL) pen injector Ozempic (1 MG/DOSE) 4 MG/3ML Subcutaneous Solution Pen-injector Quantity: 9 Refills: 0 Start : 02-Jul-2021 Active 0 07/02/2021 10/18/2023 Discontinued (Dose adjustment) Start: 07-02-2021 semaglutide (O zempic) 1 mg/dose (4 mg/3 mL) pen injector Ozempic (1 MG/DOSE) 4 MG/3ML Subcutaneous Solution Pen-injector Quantity: 9 Refills: 0 Start : 02-Jul-2021 Active 0 07/02/2021 Active tamsulosin hydrochloride 0.4 mg oral capsule (9 sources) alpha-Adrenergic Cady Start: 10-28-2023 take 1 capsule by mouth once daily Tamsulosin (Flomax) 0.4 mg capsule Active 0.4 MG PO Daily October 28, 2023 12:00am traMADol hydrochloride 50 mg oral tablet (1 [...] aspirin 81 mg delayed release oral tablet (10 sources) Platelet Aggregation Inhibitor, Nonsteroidal Anti-inflammatory Drug Start: 10-19-2019 End: 07-04-2020 take 81 mg by mouth once daily Aspirin Discontinued 81 MG PO Daily October 19, 2019 12:00am July 04, 2020 11:04am cephalexin 500 mg oral capsule (10 sources) Cephalosporin Antibacterial Start: 11-14-2020 End: 03-01-2022 [...] 10-May-2022 Complete collagenase 0.25 unt/mg topical ointment (10 sources) Collagen-specific Enzyme Start: 07-04-2020 End: 03-01-2022 Collagenase Clostridium Histo. (Santyl) 250 unit/gram ointment Discontinued 1 APPLIC TOPICAL Daily July 03, 2020 11:00pm March 01, 2022 7:02pm digoxin 0.25 mg oral tablet (10 sources) Cardiac Glycoside Start: 11-12-2019 End: 03-01-2022 [...] decreased Start: 05-10-2023 take 1 capsule by [facility] twice daily Dofetilide 125 MCG Oral Capsule TAKE 1 CAPSULE TWICE DAILY ALONG WITH 250 MCG = 375 MCG TWICE DAILY. Quantity: 180 Refills: 3 Ordered: 10-May-2023 Angel Griggs MD Start : 10-May-2023 Active DOSE DECREASE Start: 05-10-2023 take 1 capsule by [facility] twice daily Dofetilide 250 MCG Oral Capsule TAKE 1 CAPSULE TWICE DAILY ALONG WITH 125 MCG = 375 MCG TWICE DAILY. Quantity: 180 Refills: 3 Ordered: 10-May-2023 Angel Griggs MD Start : 10-May-2023 Active dose decrease Start: 11-12-2019 End: 10-20-2023 take 500 ug by mouth twice daily Dofetilide Discontinued 500 MCG PO Twice daily November 12, 2019 12:00am October 20, 2023 12:59pm take 1 capsule by mo ut twice daily Dofetilide 125 MCG 1 capsule (with 250mg to equal 375mcg) Orally Twice a day Active take 1 capsule by mo ut every twelve hours Dofetilide 250 MCG 1 capsule Oral Twice a day for 30 days Active take 500 ug by mouth twice daily Dofetilide 500 MCG TK 1 C PO BID Oral for 30 Active dronedarone 400 mg oral tablet (10 sources) Antiarrhythmic Start: 10-19-2019 End: 11-12-2019 take [...] 08-Nov-2020 Active lisinopril 5 mg oral tablet (10 sources) Angiotensin Converting Enzyme Inhibitor Start: 08-04-2017 End: 10-19-2019 take 5 mg by mouth once daily Lisinopril Discontinued 5 MG PO Daily August 04, 2017 12:00am October 19, 2019 7:39am Magnesium (10 sources) Start: 03-01-2022 End: 04-02-2023 take 200 [...] PO Daily 2 March 01, 2022 12:00am omeprazole 20 mg delayed release oral capsule (14 sources) Proton Pump Inhibitor Start: 10-19-2023 End: 10-20-2023 take 40 mg by mouth once daily Omeprazole Discontinued 40 MG PO Daily October 19, 2023 12:00am October 20, 2023 12:59pm take 2 capsules by mouth once da saeid omeprazole (PriLOSEC) [address] capsule Take 2 capsules (40 mg) by mouth once daily. Do not crush or chew. 0 Active Ozempic (0.25 or 0.5 MG/DOSE ) 2 MG/1.5ML (9 sources) Ozempic (0.25 or 0.5 MG/DOSE) 2 [...] another clinician) rivaroxaban 20 mg oral tablet (10 sources) Factor Xa Inhibitor Start: 10-19-2019 End: 10-26-2019 take 1 tablet by mouth once daily Rivaroxaban (Xarelto) 20 mg Tablet Discontinued 20 MG PO Daily October 19, 2019 12:00am October 26, 2019 12:18pm rosuvastatin calcium 20 mg oral tablet (10 sources) HMG-CoA Reductase Inhibitor Start: 10-19-2019 End: [...] 1 enema ticagrelor 90 mg oral tablet (20 sources) Start: 10-26-2019 End: 07-04-2020 take 1 tablet by mouth twice daily Ticagrelor (Brilinta) 90 mg Tablet Discontinued 90 MG PO Twice daily 180 90 November 12, 2019 10:45am July 04, 2020 11:04am valsartan 80 mg oral tablet (10 sources) Angiotensin 2 Receptor Cady Start: 10-19-2019 End: 11-08-2019 take 80 mg by mouth once daily Valsartan Discontinued 80 MG PO Daily October 19, 2019 12:00am November 08, 2019 8:42pm warfarin sodium 7.5 mg oral tablet (20 sources) Vitamin K Antagonist Start: 12-15-2022 End: 10-20-2023 Warfarin Discontinued 7.5 MG PO As Directed December 14, 2022 11:00pm October 20, 2023 12:59pm TUESDAY Start: 03-01-2022 End: 10-20-2023 take 5 mg by mouth once daily Warfarin Discontinued 5 MG PO Daily February 28, 2022 11:00pm October 20, 2023 12:59pm Warfarin Sodium 5 MG Oral Tablet Take as directed by [facility] coumadin clinic Quantity: 0 Refills: 0 Ordered: 06-Oct-2021 DO Active Problems Active Problems Problem Classification Problem Date Documented Da te Episodic/Chronic Acute myocardial infarction (10 sources) Acute myocardial infarction of anterior wall; Translations: [ST elevation (STEMI) myocardial infarction involving other coronary artery of anterior wall] 11-09-2019 Chronic Adjustment disorders (9 sources) Stress and adjustment reaction; Translations: [Adjustment disorder with other symptoms] Onset: 10-07-2023 10-07-2023 Chronic Cardiac dysrhythmias (20 sources) Paroxysmal atrial fibrillation; Translations: [Atrial fibrillation] Onset: 03-08-2023 11-09-2019 Chronic Cardiac dysrhythmias (16 sources) Palpitations; Translations: [Palpitations] Onset: 03-12-2022 03-01-2022 Episodic Chronic kidney disease (20 sources) Chronic kidney disease stage 3; Translations: [Stage 3 chronic kidney disease] Onset: 10-07-2023 11-09-2019 Chronic Chronic kidney disease (2 sources) Chronic kidney disease; Translations: [Chronic kidney disease, stage 3 unspecified (CMS/HCC)] Onset: 10-07-2023 Chronic ulcer of skin (1 source) Non-pressure chronic ulcer of other part of left foot with fat layer exposed; Translations: [N-PRS ULCR OTH PRT LT FT FAT EXPOS] Onset: 12-27-2022 Chronic Coagulation and hemorrhagic disorders (9 sources) Bleeding skin; Translations: [Spontaneous ecchymoses] 12-15-2022 Episodic Conduction disorders (20 sources) Automatic implantable cardiac defibrillator in situ; Translations: [Presence of automatic (implantable) cardiac defibrillator] Onset: 06-29-2023 06-30-2023 Chronic Coronary atherosclerosis and other heart disease (20 sources) Ischemic myocardial dysfunction; Translations: [Other specified forms of chronic ischemic heart disease] Onset: 07-17-2022 Chronic Diabetes mellitus with complications (20 sources) Type 2 diabetes mellitus with foot ulcer; Translations: [Type 2 diabetes mellitus with other diabetic neurological complication] Onset: 07-14-2021 Chronic Diabetes mellitus without complication (20 sources) Diabetes mellitus; Translations: [Diabetes mellitus without mention of complication, type II or unspecified type, not stated as uncontrolled] Onset: 04-02-2023 11-09-2019 Chronic Disorders of lipid metabolism (20 sources) Hyperlipidemia; Translations: [Other and unspecified hyperlipidemia] Onset: 07-21-2022 04-02-2023 Chronic Essential hypertension (20 sources) Essential hypertension; Translations: [Unspecified essential hypertension] Onset: 05-02-2023 06-12-2023 Chronic Infective arthritis and osteomyelitis (except that caused by tuberculosis or sexually transmitted disease) (9 sources) Osteomyelitis; Translations: [Osteomyelitis, unspecified] Onset: 03-08-2023 10-07-2023 Chronic Open wounds of extremities (9 sources) Amputated toe of left foot; Translations: [Complete traumatic amputation of one left lesser toe, initial encounter] Onset: 03-08-2023 10-07-2023 Chronic Other aftercare (20 sources) Drug therapy finding; Translations: [Long-term (current) use of other medications] Episodic Other circulatory disease (1 source) Low blood pressure; Translations: [Hypotension, unspecified] 10-18-2023 Episodic Other circulatory disease (2 sources) Hypotension, unspecified; Translations: [Hypotension, unspecified] Onset: 10-18-2023 Episodic Other connective tissue disease (10 sources) Swelling of left lower limb; Translations: [Other specified soft tissue disorders] 11-14-2020 Episodic Other lower respiratory disease (16 sources) Dyspnea; Translations: [Dyspnea, unspecified] 11-11-2019 Episodic Other lower respiratory disease (11 sources) Dyspnea on exertion; Translations: [Other forms of dyspnea] Onset: 09-14-2023 10-07-2023 Episodic Other lower respiratory disease (2 sources) Other forms of dyspnea; Translations: [Other forms of dyspnea] Onset: 10-07-2023 Episodic Other lower respiratory disease (1 source) Shortness of breath; Translations: [Shortness of breath] Onset: 09-14-2023 Episodic Other nutritional; endocrine; and metabolic disorders (12 sources) Severe obesity; Translations: [Morbid obesity] Onset: 06-12-2023 10-07-2023 Chronic Other nutritional; endocrine; and metabolic disorders (19 sources) Hypomagnesemia; Translations: [Hypomagnesemia] Onset: 03-08-2023 03-01-2022 Chronic Other nutritional; endocrine; and metabolic disorders (20 sources) Obesity; Translations: [Obesity, unspecified] Onset: 06-12-2023 06-12-2023 Chronic Other nutritional; endocrine; and metabolic disorders (4 sources) Hypomagnesemia; Translations: [Disorders of magnesium metabolism] Onset: 10-29-2023 10-30-2023 Chronic Sylwia-; endo-; and myocarditis; cardiomyopathy (except that caused by tuberculosis or sexually transmitted disease) (13 sources) Primary cardiomyopathy; Translations: [Cardiomyopathy, unspecified] Onset: 07-13-2023 07-13-2023 Chronic Peripheral and visceral atherosclerosis (9 sources) Peripheral vascular disease; Translations: [Peripheral vascular disease, unspecified] Onset: 03-08-2023 10-07-2023 Chronic Residual codes; unclassified (20 sources) Sleep apnea; Translations: [Unspecified sleep apnea] Onset: 06-12-2023 04-04-2023 Chronic Residual codes; unclassified (2 sources) Sleep apnea, unspecified; Translations: [Unspecified sleep apnea] Onset: 04-02-2023 04-04-2023 Chronic Residual codes; unclassified (10 sources) Noncompliance with treatment; Translations: [Patient's noncompliance with other medical treatment and regimen] 11-08-2019 Episodic Residual codes; unclassified (10 sources) History of radiofrequency ablation operation for arrhythmia; Translations: [Other specified postprocedural states] Onset: 10-18-2023 10-18-2023 Episodic Residual codes; unclassified (2 sources) Other specified postprocedural states; Translations: [Other specified postprocedural states] Onset: 10-18-2023 Episodic Unclassified (2 sources) Other ventricular tachycardia (CMS/HCC); Translations: [Other ventricular tachycardia (CMS/HCC)] Onset: 06-12-2023 Unclassified (1 source) Non-pressure chronic ulcer of other part of left foot with fat layer exposed; Translations: [Non-pressure chronic ulcer of other part of left foot with fat layer exposed] Onset: 11-22-2023 Unclassified (1 source) Abrasion of right shoulder, initial encounter; Translations: [Abrasion of right shoulder, initial encounter] Onset: 12-15-2022 Past or Other Problems Problem Classification Problem Date Documented Date Episodic/Chronic Acquired foot deformities (9 sources) Acquired equinus deformity of foot; Translations: [Other acquired deformities of left foot] Onset: 3 10-07-2023 Episodic Bacterial infection; unspecified site (20 sources) Bacterial infection due to Morganella morganii; Translations: [Other bacterial infections of unspecified site] Onset: 3 10-07-2023 Episodic Conditions associated with dizziness or vertigo (1 source) Dizziness and giddiness; Translations: [DIZZINESS AND GIDDINESS] Onset: Episodic Coronary atherosclerosis and other heart disease (11 sources) Past history of procedure; Translations: [Percutaneous transluminal coronary angioplasty status] Onset: 3 11-08-2019 Episodic Comment on above: LAD/Diagonal; Fluid and electrolyte disorders (19 sources) Acute hypokalemia; Translations: [Hypokalemia] Onset: 3 03-01-2022 Episodic Gangrene (9 sources) Gangrenous disorder; Translations: [Gangrene, not elsewhere classified] Onset: 3 10-07-2023 Episodic Nonspecific chest pain (18 sources) Chest pain; Translations: [Chest pain, unspecified] Onset: 3 04-02-2023 Episodic Other aftercare (20 sources) Encounter for therapeutic drug level monitoring; Translations: [Medication monitoring encounter Z51.81] Onset: 1 Resolved: 2 Episodic Other bone disease and musculoskeletal deformities (9 sources) History of amputation of right foot; Translations: [Acquired absence of other right toe(s)] Onset: 3 10-07-2023 Episodic Other circulatory disease (20 sources) Orthostatic hypotension; Translations: [Orthostatic hypotension] Onset: 3 04-04-2023 Episodic Other circulatory disease (3 sources) Orthostatic hypotension; Translations: [Orthostatic hypotension] Onset: 3 04-04-2023 Episodic Other connective tissue disease (9 sources) Pain in limb; Translations: [Pain in unspecified limb] Onset: 3 10-07-2023 Episodic Other hematologic conditions (9 sources) Secondary polycythemia; Translations: [Secondary polycythemia] Onset: 3 10-07-2023 Episodic Other lower respiratory disease (15 sources) [...] diseases] Resolved: 2 Episodic Residual codes; unclassified (20 sources) Never smoked any substance; Translations: [Other specified health status] Onset: 3 06-12-2023 Episodic Syncope (20 sources) Near syncope; Translations: [Syncope and collapse] Onset: 3 06-12-2023 Episodic Unclassified (15 sources) Never smoked tobacco; Translations: [Never a smoker] Unclassified (2 sources) Other ventricular tachycardia (CMS/HCC); Translations: [Other ventricular tachycardia (CMS/HCC)] Onset: 3 Results Test Name Value Interpretation Reference Range Facil ity Superficial Wound Cultureon 11-22-2023 Superficial Wound Culture ORGANISM: Staphylococcus sp coag neg (O:STACN) Quantity of Growth Moderate Growth Aerobic DANIELLE Charge (PCMIC38) ----- SUSCEPTIBILITY ---- ORGANISM: O:STACN ANTIBIOTIC INTERPRETATION DANIELLE Azithromycin R >4 Ciprofloxacin R >2 Clindamycin R >4 Daptomycin S <0.5 Levofloxacin R >4 Linezolid S 2 Oxacillin R 1 Penicillin R >2 Tetracycline R >8 Trimethoprim/Sulfame thoxazole S <0.5 Vancomycin S 1 S = SUSCEPTIBLE I = INTERMEDIATE R [...] RESISTANT TO ALL B-LACTAM DRUGS. PERFORMED BY: [address] [place] [address] PATHOLOGIST ARTIST RELATIONSHIP MANAGER MELANI GUTIÉRREZ M.D. Normal [facility] Comment on above: Performed By: #### L IPID, CBC, PT, CMP #### [facility] [address] Cardiac device check - Remot e alerton 11-01-2023 Radiology Study observation (narrative) [facility] Work Phone: [facility] Work Phone: Glucose Glucometer (BldC) [M ass/Vol]Ordered By: Daniela Gore on 10-30-2023 Glucose [Mass/Vol] 170 mg/dL [facility] Comment on above: Random Glucose Refer ence Range is dependent on time and content of last meal. Glucose of more than 200 mg/dL in a nonstressed, ambulatory subject supports the diagnosis of Diabetes Mellitus. Glucose Poct Glucometerson 0 10-30-2023 Glucose [Mass/Vol] 170 mg/dL Normal [facility] Comment on above: Result Comment: [place] [facility] Glucose Reference Range is dependent on time and content of last meal. Glucose of more than 200 mg/dL in a nonstressed, ambulatory subject supports the diagnosis of Diabetes Mellitus. PERFORMED BY: [place] [address] PATHOLOGIST ARTIST RELATIONSHIP MANAGER MELANI GUTIÉRREZ M.D. Performed By: #### L IPID, CBC, PT, CMP #### [facility] [address] [place] [id number] [facility] Glucose [Mass/Vol] 160 mg/dL Normal [facility] Comment on above: Result Comment: [place] [facility] Glucose Reference Range is dependent on time and content of last meal. Glucose of more than 200 mg/dL in a nonstressed, ambulatory subject supports the diagnosis of Diabetes Mellitus. PERFORMED BY: [place] [address] PATHOLOGIST ARTIST RELATIONSHIP MANAGER MELANI GUTIÉRREZ M.D. Performed By: #### G LULS #### Point of Care testing , Glucose [Mass/Vol] 82 mg/dL Normal [facility] Comment on above: Result Comment: [place] [facility] Glucose Reference Range is dependent on time and content of last meal. Glucose of more than 200 mg/dL in a nonstressed, ambulatory subject supports the diagnosis of Diabetes Mellitus. PERFORMED BY: [place] [address] PATHOLOGIST ARTIST RELATIONSHIP MANAGER MELANI GUTIÉRREZ M.D. Performed By: #### L IPID, CBC, PT, CMP #### [facility] [address] [place], [place] [address] Glucose [Mass/Vol] 65 mg/dL Normal [facility] Comment on above: Result Comment: [place] [facility] Glucose Reference Range is dependent on time and content of last meal. Glucose of more than 200 mg/dL in a nonstressed, ambulatory subject supports the diagnosis of Diabetes Mellitus. PERFORMED BY: [place] [address] PATHOLOGIST ARTIST RELATIONSHIP MANAGER MELANI GUTIÉRREZ M.D. Performed By: #### G LULS #### Point of Care testing , Magnesiumon 10-30-2023 Magnesium [Mass/Vol] 1.7 mg/dL Low 1.9-2.7 [facility] Comment on above: Result Comment: PERF ORMED BY: [place] [address] PATHOLOGIST ARTIST RELATIONSHIP MANAGER MELANI GUTIÉRREZ M.D. Performed By: #### L IPID, CBC, PT, CMP #### [facility] [address] [place], [place] [id number] [facility] Magnesium [Mass/volume] in S suad or PlasmaOrdered By: Daniela Gore on 10-30-2023 Magnesium [Mass/Vol] 1.7 mg/dL 1.9-2.7 [facility] Glucose Poct Glucometerson 0 10-29-2023 Glucose [Mass/Vol] 97 mg/dL Normal [facility] Comment on above: Result Comment: [place] [facility] Glucose Reference Range is dependent on time and content of last meal. Glucose of more than 200 mg/dL in a nonstressed, ambulatory subject supports the diagnosis of Diabetes Mellitus. PERFORMED BY: [place] [address] PATHOLOGIST ARTIST RELATIONSHIP MANAGER MELANI GUTIÉRREZ M.D. Performed By: #### L IPID, CBC, PT, CMP #### [address] Glucose [Mass/Vol] 156 mg/dL Normal [facility] Comment on above: Result Comment: [facility] Glucose Reference Range is dependent on time and content of last meal. Glucose of more than 200 mg/dL in a nonstressed, ambulatory subject supports the diagnosis of Diabetes Mellitus. PERFORMED BY: [place] [address] PATHOLOGIST ARTIST RELATIONSHIP MANAGER MELANI GUTIÉRREZ M.D. Performed By: #### G LULS #### Point of Care testing , Glucose [Mass/Vol] 206 mg/dL Normal [facility] Comment on above: Result Comment: [facility] Glucose Reference Range is dependent on time and content of last meal. Glucose of more than 200 mg/dL in a nonstressed, ambulatory subject supports the diagnosis of Diabetes Mellitus. PERFORMED BY: [place] [address] PATHOLOGIST ARTIST RELATIONSHIP MANAGER MELANI GUTIÉRREZ M.D. Performed By: #### G LULS #### Point of Care testing , Glucose [Mass/Vol] 181 mg/dL Normal [facility] Comment on above: Result Comment: [facility] Glucose Reference Range is dependent on time and content of last meal. Glucose of more than 200 mg/dL in a nonstressed, ambulatory subject supports the diagnosis of Diabetes Mellitus. PERFORMED BY: [place] [address] PATHOLOGIST ARTIST RELATIONSHIP MANAGER MELANI GUTIÉRREZ M.D. Performed By: #### G LULS #### Point of Care testing , Activated partial thrombopla stin time (aPTT) in platelet poor plasma by coagulation aOrdered By: Trev Salmon on 10-28-2023 aPTT Coag (PPP) [Time] 36.1 s 25.1-36.5 [facility] Comment on above: A hematocrit value g reater than 55% may lead to inaccurate results in coagulation testing. Patients having hematocrit values >55% require a special collection tube for coagulation studies. Please contact the laboratory at [phone] for redraw instructions. Alanine aminotransferase [En zymatic activity/volume] in Serum or PlasmaOrdered By: Trev Salmon on 10-28-2023 ALT [Catalytic activity/Vol] 21 U/L 7-52 [facility] Albumin [Mass/volume] in Ser um or Plasma by Bromocresol green (BCG) dye binding methoOrdered By: Trev Salmon on 10-28-2023 Albumin BCG dye [Mass/Vol] 3.8 g/dL 3.5-5.7 [facility] Alkaline phosphatase [Enzyma tic activity/volume] in Serum or PlasmaOrdered By: Trev Salmon on 10-28-2023 ALP [Catalytic activity/Vol] 70 U/L 34-104 [facility] Aspartate aminotransferase [ Enzymatic activity/volume] in Serum or PlasmaOrdered By: Trev Salmon on 10-28-2023 AST [Catalytic activity/Vol] 19 U/L 13-39 [facility] B-Type Natriuretic Peptideon 10-28-2023 Natriuretic peptide B (Bld) [Mass/Vol] 481.0 pg/mL High 5-100 [facility] Comment on above: Result Comment: PERF ORMED BY: [place] [address] PATHOLOGIST ARTIST RELATIONSHIP MANAGER MELANI GUTIÉRREZ M.D. Performed By: #### L IPID, CBC, PT, CMP #### [address] Basophils Auto (Bld) [#/Vol] Ordered By: Trev Salmon on 10-28-2023 Basophils (Bld) [#/Vol] 0.0 10*3/uL 0.0-0.2 [facility] Basophils/100 WBC Auto (Bld) Ordered By: Trev Salmon on 10-28-2023 Basophils/100 WBC (Bld) 0.5 % . [facility] Bilirubin.total [Mass/volume ] in Serum or PlasmaOrdered By: Trev Salmon on 10-28-2023 Bilirubin [Mass/Vol] 0.9 mg/dL 0.3-1.0 [facility] Calcium [Mass/volume] in Ser um or PlasmaOrdered By: Trev Salmon on 10-28-2023 Calcium [Mass/Vol] 8.5 mg/dL 8.6-10.3 [facility] Carbon dioxide, total [Moles /volume] in Serum or PlasmaOrdered By: Trev Salmon on 10-28-2023 CO2 [Moles/Vol] 27.8 mmol/L 21.0-31.0 [facility] Chloride [Moles/volume] in S suad or PlasmaOrdered By: Trev Salmon on 10-28-2023 Chloride [Moles/Vol] 102 mmol/L 98-107 [facility] Complete Blood Count Auto Di ffon 10-28-2023 Basophils (Bld) [#/Vol] 0.0 10*3/uL Normal 0.0-0.2 [facility] Comment on above: Result Comment: PERF ORMED BY: [place] [address] PATHOLOGIST ARTIST RELATIONSHIP MANAGER MELANI GUTIÉRREZ M.D. Performed By: #### L IPID, CBC, PT, CMP #### [facility] [address] [place] [address] Basophils/100 WBC (Bld) 0.5 % Normal . [facility] Comment on above: Performed By: #### L IPID, CBC, PT, CMP #### [facility] [address] [place] [address] [place] Eosinophils (Bld) [#/Vol] 0.1 10*3/uL Normal 0.0-0.45 [facility] Comment on above: Performed By: #### L IPID, CBC, PT, CMP #### [facility] [address] [place] [address] [place] Eosinophils/100 WBC (Bld) 1.7 % Normal . [facility] Comment on above: Performed By: #### L IPID, CBC, PT, CMP #### [facility] [address] [place] [address] [place] Erythrocyte distribution width (RBC) [Ratio] 15.3 % High 12.0-14.8 [facility] Comment on above: Performed By: #### L IPID, CBC, PT, CMP #### [address] Hematocrit (Bld) [Volume fraction] 39.9 % Normal 38.8-50.0 [facility] Comment on above: Performed By: #### L IPID, CBC, PT, CMP #### [address] Hemoglobin (Bld) [Mass/Vol] 14.0 g/dL Normal 13.0-17.0 [facility] Comment on above: Performed By: #### L IPID, CBC, PT, CMP #### [address] Lymphocytes (Bld) [#/Vol] 0.9 10*3/uL Low 1.00-4.8 [facility] Comment on above: Performed By: #### L IPID, CBC, PT, CMP #### [address] Lymphocytes/100 WBC (Bld) 14.1 % Normal . [facility] Comment on above: Performed By: #### L IPID, CBC, PT, CMP #### [address] MCH (RBC) [Entitic mass] 32.2 pg Normal 27.5-35.2 [facility] Comment on above: Performed By: #### L IPID, CBC, PT, CMP #### [address] MCV (RBC) [Entitic vol] 91.6 fL Normal 83.5-101 [facility] Comment on above: Performed By: #### L IPID, CBC, PT, CMP #### [address] Mean Corpuscular HGB Conc 35.1 g/dL Normal 32.5-35.6 [facility] Comment on above: Performed By: #### L IPID, CBC, PT, CMP #### [facility] [address] [place] [address] Monocytes (Bld) [#/Vol] 0.5 10*3/uL Normal 0.0-0.8 [facility] Comment on above: Performed By: #### L IPID, CBC, PT, CMP #### [address] Monocytes/100 WBC (Bld) 18.98 % Normal 0.00-20.00 [facility] Comment on above: Performed By: #### L IPID, CBC, PT, CMP #### [place] [address] [place] Monocytes/100 WBC (Bld) 7.2 % Normal . [facility] Comment on above: Performed By: #### L IPID, CBC, PT, CMP #### [address] Neutrophils (Bld) [#/Vol] 5.0 10*3/uL Normal 1.8-7.7 [facility] Comment on above: Performed By: #### L IPID, CBC, PT, CMP #### [address] Neutrophils/100 WBC (Bld) 76.5 % Normal . [facility] Comment on above: Performed By: #### L IPID, CBC, PT, CMP #### [place] [address] [place] NRBC% 0.0 /100{WBC} Normal 0-0.5 [facility] Comment on above: Performed By: #### L IPID, CBC, PT, CMP #### [facility] [address] [place] [address] Platelet mean volume (Bld) [Entitic vol] 8.7 fL Normal 6.6-10.1 [facility] Comment on above: Performed By: #### L IPID, CBC, PT, CMP #### [facility] [address] [place] [address] [place] Platelets (Bld) [#/Vol] 154 10*3/uL Normal 150-450 [facility] Comment on above: Performed By: #### L IPID, CBC, PT, CMP #### [facility] [address] [place] [address] RBC (Bld) [#/Vol] 4.36 10*6/uL Normal 3.90-5.60 [facility] Comment on above: Performed By: #### L IPID, CBC, PT, CMP #### [address] WBC (Bld) [#/Vol] 6.5 10*3/uL Normal 4.1-10.5 [facility] Comment on above: Performed By: #### L IPID, CBC, PT, CMP #### [address] Comprehensive Metabolic Pane lindy 10-28-2023 Albumin [Mass/Vol] 3.8 g/dL Normal 3.5-5.7 [facility] Comment on above: Performed By: #### L IPID, CBC, PT, CMP #### [facility] [address] [place] [address] Albumin/Globulin [Mass ratio] 1.7 {ratio} Normal [facility] Comment on above: Performed By: #### L IPID, CBC, PT, CMP #### [facility] [address] [place] [address] ALP [Catalytic activity/Vol] 70 U/L Normal 34-104 [facility] Comment on above: Performed By: #### L IPID, CBC, PT, CMP #### [facility] [address] [place] [address] ALT [Catalytic activity/Vol] 21 U/L Normal 7-52 [facility] Comment on above: Performed By: #### L IPID, CBC, PT, CMP #### [facility] [address] [place] [address] Anion gap [Moles/Vol] 13.0 mmol/L Normal 6.0-15.0 [facility] Comment on above: Performed By: #### L IPID, CBC, PT, CMP #### [facility] [address] [place] [address] [place] AST [Catalytic activity/Vol] 19 U/L Normal 13-39 [facility] Comment on above: Performed By: #### L IPID, CBC, PT, CMP #### [facility] [address] Bilirubin [Mass/Vol] 0.9 mg/dL Normal 0.3-1.0 [facility] Comment on above: Performed By: #### L IPID, CBC, PT, CMP #### [address] Calcium [Mass/Vol] 8.5 mg/dL Low 8.6-10.3 [facility] Comment on above: Performed By: #### L IPID, CBC, PT, CMP #### [address] Chloride [Moles/Vol] 102 mmol/L Normal 98-107 [facility] Comment on above: Performed By: #### L IPID, CBC, PT, CMP #### [place] [address] [place] CO2 [Moles/Vol] 27.8 mmol/L Normal 21.0-31.0 [facility] Comment on above: Performed By: #### L IPID, CBC, PT, CMP #### [facility] [address] [place] [address] [place] Creatinine [Mass/Vol] 1.25 mg/dL Normal 0.70-1.30 [facility] Comment on above: Performed By: #### L IPID, CBC, PT, CMP #### [facility] [address] [place] [address] [place] Creatinine Clr Calc Pharmacy 92.05 Normal [facility] Comment on above: Performed By: #### L IPID, CBC, PT, CMP #### [facility] [address] [place] [address] [place] GFR/1.73 sq M.predicted MDRD (S/P/Bld) [Vol rate/Area] mL/min/{1.73_m2} Normal [facility] Comment on above: Performed By: #### L IPID, CBC, PT, CMP #### [facility] [address] Globulin (S) [Mass/Vol] 2.3 g/dL Normal [facility] Comment on above: Performed By: #### L IPID, CBC, PT, CMP #### [facility] [address] Glucose [Mass/Vol] 173 mg/dL High 70-100 [facility] Comment on above: Result Comment: [facility] Glucose Reference Range is dependent on time and content of last meal. Glucose of more than 200 mg/dL in a nonstressed, ambulatory subject supports the diagnosis of Diabetes Mellitus. ADA recommended reference range Performed By: #### L IPID, CBC, PT, CMP #### [facility] [address] Potassium [Moles/Vol] 3.8 mmol/L Normal 3.5-5.1 [facility] Comment on above: Performed By: #### L IPID, CBC, PT, CMP #### [facility] [address] Protein [Mass/Vol] 6.1 g/dL Low 6.4-8.9 [facility] Comment on above: Performed By: #### L IPID, CBC, PT, CMP #### [facility] [address] [place] [address] [place] Sodium [Moles/Vol] 139 mmol/L Normal 136-145 [facility] Comment on above: Performed By: #### L IPID, CBC, PT, CMP #### [facility] [address] [place] [address] [place] Urea nitrogen [Mass/Vol] 19 mg/dL Normal 7-25 [facility] Comment on above: Performed By: #### L IPID, CBC, PT, CMP #### [facility] [address] [place] [address] [place] Creatinine [Mass/volume] in Serum or PlasmaOrdered By: Trev Salmon on 10-28-2023 Creatinine [Mass/Vol] 1.25 mg/dL 0.70-1.30 [facility] ECG 12 lead ECGon 10-28-2023 ECG 12 lead ECG [facility] [place] [address] [place] [id number] Electrocardiograph Report Signed Patient: Harriett Thakkar MR#: [id number] : 1965 Acct:[id number] Age/Sex: 58 / M ADM Date: 10/28/23 Loc: ER Room: Type: [facility] ER Attending Dr: Ordering Provider: Dylon Weiss DO Date of Service: 10/28/2306/12/1106 ECG/ECG 12 lead ECG: Dizziness Copies to: Test Reason : Blood Pressure : / mmHG Vent. Rate : 118 BPM Atrial Rate : 288 BPM P-R Int : 000 ms QRS Dur : 090 ms QT Int : 322 ms P-R-T Axes : 000 143 007 degrees QTc Int : 451 ms Suspect arm lead reversal, interpretation assumes no reversal Atrial flutter with variable AV block with premature ventricular or aberrantly conducted complexes Right axis deviation Low voltage QRS Cannot rule out Anteroseptal infarct (cited on or before 02-APR-2023) Abnormal ECG When compared with ECG of 20-OCT-2023 13:43, Atrial flutter has replaced Sinus rhythm QRS axis shifted right Inverted T waves have replaced nonspecific T wave abnormality in Inferior leads Confirmed by DYLON WEISS DO ([id number]) on 10/28/2023 4:11:00 PM Referred By: Electronically Signed By:DYLON WEISS DO Transcribed By: [facility] Signed By Dylon Weiss DO 10/28 1611 Normal [facility] Eosinophils Auto (Bld) [#/Vo l]Ordered By: Trev Salmon on 10-28-2023 Eosinophils (Bld) [#/Vol] 0.1 10*3/uL 0.0-0.45 [facility] Eosinophils/100 WBC Auto (Bl d)Ordered By: Trev Salmon on 10-28-2023 Eosinophils/100 WBC (Bld) 1.7 % . [facility] Erythrocyte distribution wid th Auto (RBC) [Ratio]Ordered By: Trev Salmon on 10-28-2023 Erythrocyte distribution width (RBC) [Ratio] 15.3 % 12.0-14.8 [facility] Globulin Calc (S) [Mass/Vol] Ordered By: Trev Salmon on 10-28-2023 Globulin (S) [Mass/Vol] 2.3 g/dL [facility] Glucose Poct Glucometerson 0 10-28-2023 Glucose [Mass/Vol] 228 mg/dL Normal [facility] Comment on above: Result Comment: [place] Glucose Reference Range is dependent on time and content of last meal. Glucose of more than 200 mg/dL in a nonstressed, ambulatory subject supports the diagnosis of Diabetes Mellitus. PERFORMED BY: [place] [address] PATHOLOGIST ARTIST RELATIONSHIP MANAGER MELANI GUTIÉRREZ M.D. Performed By: #### L IPID, CBC, PT, CMP #### [address] Glucose [Mass/volume] in Ser um or PlasmaOrdered By: Trev Salmon on 10-28-2023 Glucose [Mass/Vol] 173 mg/dL 70-100 [facility] Comment on above: ADA recommended refe rence rangeRandom Glucose Reference Range is dependent on time and content of last meal. Glucose of more than 200 mg/dL in a nonstressed, ambulatory subject supports the diagnosis of Diabetes Mellitus. Hematocrit Auto (Bld) [Volum e fraction]Ordered By: Trev Salmon on 10-28-2023 Hematocrit (Bld) [Volume fraction] 39.9 % 38.8-50.0 [facility] Hemoglobin [Mass/volume] in BloodOrdered By: Trev Salmon on 10-28-2023 Hemoglobin (Bld) [Mass/Vol] 14.0 g/dL 13.0-17.0 [facility] INR in Platelet poor plasma by Coagulation assayOrdered By: Trev Salmon on 10-28-2023 INR Coag (PPP) [Relative time] 1.5 {INR} [facility] Comment on above: INR Therapeutic Rang e A) Pre- and Peroperative OAT started two weeks before surgery. NOT HIP SURGERY: 1.5 - 2.5 HIP SURGERY: 2 - 3B) Primary and secondary prevention of venous THROMBOSIS: 2 - 3C) Active venous thrombosis, pulmonary embolismand prevention of recurrent venous thrombosis: 2 - 3D) Prevention of arterial thromboembolismincluding patients with mechanical heart valves: 3 - 4.5 Leukocytes [#/volume] correc kaylee for nucleated erythrocytes in Blood by Automated counOrdered By: Trev Salmon on 10-28-2023 WBC corrected for nucl RBC Auto (Bld) [#/Vol] 6.5 10*3/uL 4.1-10.5 [facility] Lymphocytes Auto (Bld) [#/Vo l]Ordered By: Trev Salmon on 10-28-2023 Lymphocytes (Bld) [#/Vol] 0.9 10*3/uL 1.00-4.8 [facility] Lymphocytes/100 WBC Auto (Bl d)Ordered By: Trev Salmon on 10-28-2023 Lymphocytes/100 WBC (Bld) 14.1 % . [facility] MCH Auto (RBC) [Entitic mass ]Ordered By: Trev Salmon on 10-28-2023 MCH (RBC) [Entitic mass] 32.2 pg 27.5-35.2 [facility] MCHC Auto (RBC) [Mass/Vol]Or dered By: Trev Salmon on 10-28-2023 MCHC (RBC) [Mass/Vol] 35.1 g/dL 32.5-35.6 [facility] MCV Auto (RBC) [Entitic vol] Ordered By: Trev Salmon on 10-28-2023 MCV (RBC) [Entitic vol] 91.6 fL 83.5-101 [facility] Magnesiumon 10-28-2023 Magnesium [Mass/Vol] 1.1 mg/dL Low 1.9-2.7 [facility] Comment on above: Result Comment: PERF ORMED BY: [address] [address] PATHOLOGIST ARTIST RELATIONSHIP MANAGER MELANI GUTIÉRREZ M.D. Performed By: #### L IPID, CBC, PT, CMP #### [facility] [address] [id number] [facility] Magnesium [Mass/volume] in S suad or PlasmaOrdered By: Trev Salmon on 10-28-2023 Magnesium [Mass/Vol] 1.1 mg/dL 1.9-2.7 [facility] Monocyte distribution width [Entitic volume] in Blood by AutomatedOrdered By: Trev Salmon on 10-28-2023 Monocyte distribution width Auto (Bld) [Entitic vol] 18.98 % 0.00-20.00 [facility] Monocytes Auto (Bld) [#/Vol] Ordered By: Trev Salmon on 10-28-2023 Monocytes (Bld) [#/Vol] 0.5 10*3/uL 0.0-0.8 [facility] Monocytes/100 WBC Auto (Bld) Ordered By: Trev Salmon on 10-28-2023 Monocytes/100 WBC (Bld) 7.2 % . [facility] Natriuretic peptide B [Mass/ Vol]Ordered By: Trev Salmon on 10-28-2023 Natriuretic peptide B (Bld) [Mass/Vol] 481.0 pg/mL 5-100 [facility] Neutrophils Auto (Bld) [#/Vo l]Ordered By: Trev Salmon on 10-28-2023 Neutrophils (Bld) [#/Vol] 5.0 10*3/uL 1.8-7.7 [facility] Neutrophils/100 WBC Auto (Bl d)Ordered By: Trev Salmon on 10-28-2023 Neutrophils/100 WBC (Bld) 76.5 % . [facility] No Panel InformationOrdered By: Trev Salmon on 10-28-2023 Estimated GFR (CKD-EPI) > 60.0 mL/Min [facility] Creatinine Clearance (Chem 92.05 [facility] Nucleated erythrocytes [Pres ence] in Blood by Automated countOrdered By: Trev Salmon on 10-28-2023 Nucleated RBC Auto Ql (Bld) 0.0 /100{WBC} 0-0.5 [facility] Partial Thromboplastin Timeo n 10-28-2023 aPTT Coag (Bld) [Time] 36.1 s Normal 25.1-36.5 [facility] Comment on above: Result Comment: A he matocrit value greater than 55% may lead to inaccurate results in coagulation testing. Patients having hematocrit values >55% require a special collection tube for coagulation studies. Please contact the laboratory at [phone] for redraw instructions. PERFORMED BY: [facility] [address] [id number] PATHOLOGIST ARTIST RELATIONSHIP MANAGER MELANI GUTIÉRREZ M.D. Performed By: #### L IPID, CBC, PT, CMP #### [facility] [address] [place] [address] [facility] Platelet mean volume Auto (B ld) [Entitic vol]Ordered By: Trev Salmon on 10-28-2023 Platelet mean volume (Bld) [Entitic vol] 8.7 fL 6.6-10.1 [facility] Platelets Auto (Bld) [#/Vol] Ordered By: Trev Salmon on 10-28-2023 Platelets (Bld) [#/Vol] 154 10*3/uL 150-450 [facility] Potassium [Moles/volume] in Serum or PlasmaOrdered By: Trev Salmon on 10-28-2023 Potassium [Moles/Vol] 3.8 mmol/L 3.5-5.1 [facility] Protein [Mass/volume] in Ser um or PlasmaOrdered By: Trev Salmon on 10-28-2023 Protein [Mass/Vol] 6.1 g/dL 6.4-8.9 [facility] Prothrombin Time INRon 10-28 INR Coag (PPP) [Relative time] 1.5 {INR} Normal [facility] Comment on above: Result Comment: INR Therapeutic [...] valves: 3 - 4.5 Performed By: #### L IPID, CBC, PT, CMP #### [facility] [address] [id number] [facility] PT Coag (PPP) [Time] 17.5 s High 9.0-12.9 [facility] Comment on above: Result Comment: A he matocrit value greater than 55% may lead to inaccurate results in coagulation testing. Patients having hematocrit values >55% require a special collection tube for coagulation studies. Please contact the laboratory at [phone] for redraw instructions. Performed By: #### L IPID, CBC, PT, CMP #### [facility] [address] [place] [address] [facility] Prothrombin time (PT)Ordered By: Trev Salmon on 10-28-2023 PT Coag (PPP) [Time] 17.5 s 9.0-12.9 [facility] Comment on above: A hematocrit value g reater than 55% may lead to inaccurate results in coagulation testing. Patients having hematocrit values >55% require a special collection tube for coagulation studies. Please contact the laboratory at [phone] for redraw instructions. RBC Auto (Bld) [#/Vol]Ordere d By: Trev Salmon on 10-28-2023 RBC (Bld) [#/Vol] 4.36 10*6/uL 3.90-5.60 [facility] Serum or plasma albumin/glob ulin mass ratioOrdered By: Trev Salmon on 10-28-2023 Albumin/Globulin [Mass ratio] 1.7 {ratio} [facility] Serum or plasma anion gap de terminationOrdered By: Trev Salmon on 10-28-2023 Anion gap [Moles/Vol] 13.0 mmol/L 6.0-15.0 [facility] Sodium [Moles/volume] in Ser um or PlasmaOrdered By: Trev Salmon on 10-28-2023 Sodium [Moles/Vol] 139 mmol/L 136-145 [facility] Troponin I High Sensitivityo n 10-28-2023 Troponin I High Sensitivity 9.1 pg/mL Normal 0.0-20.0 [facility] Comment on above: Result Comment: PERF ORMED BY: [facility] [address] PATHOLOGIST ARTIST RELATIONSHIP MANAGER MELANI GUTIÉRREZ M.D. Performed By: #### L IPID, CBC, PT, CMP #### [address] Troponin I.cardiac [Mass/vol ume] in Serum or Plasma by Detection limit <= 0.01 ng/Ordered By: Trev Salmon on 10-28-2023 Troponin I.cardiac DL <= 0.01 ng/mL [Mass/Vol] 9.1 pg/mL 0.0-20.0 [facility] Urea nitrogen [Mass/volume] in Serum or PlasmaOrdered By: Trev Salmon on 10-28-2023 Urea nitrogen [Mass/Vol] 19 mg/dL 7-25 [facility] WBC Auto (Bld) [#/Vol]Ordere d By: Trev Salmon on 10-28-2023 WBC (Bld) [#/Vol] 6.5 10*3/uL 4.1-10.5 [facility] XR chest 1V portableon 10-28 XR chest 1V portable [facility] [place] [address] [place] [address] XRay Report Signed Patient: Harriett Thakkar MR#: [id number] 285 : 1965 Acct:[id number] Age/Sex: 58 / M ADM Date: 10/28/23 Loc: ER Room: Type: [facility] ER Attending Dr: Copies to: DO Trev Pathak DO, RES Ordering Provider: Trev Salmon DO, RES Date of Service: 10/28/23 XR/XR chest 1V portable: Dizziness, afib XR chest 1V portable 10/28/2023 11:17 AM SIGNS AND SYMPTOMS: Dizziness, generalized weakness PROTOCOL: Frontal radiograph of the chest COMPARISON: 09/14/2023 FINDINGS: The trachea is midline. There is a dual lead pacer device on the left. The heart and mediastinal structures are within normal limits. The lung parenchyma is clear. The bony thorax is intact. Anterior cervical fusion is redemonstrated. XR/XR chest 1V portable IMPRESSION: No acute cardiopulmonary pathology. Impression dictated by: Ruben Greco M.D.10/28/2023 12:11 PM Dictation Location: [place] [address] Transcribed By: [facility] 10/28/23 1211 Dictated By: Ruben Greco II, MD 10/28/23 1200 Signed By: 10/28/23 1211 [facility] TRANSTHORACIC ECHO (TTE) VENTURA ITEDon 10-21-2023 TRANSTHORACIC ECHO (TTE) LIMITED [address], [address] [place] [address] TRANSTHORACIC ECHOCARDIOGRAM REPORT Patient Name: HARRIETT Shine Physician: [id number] Angel Griggs MD, [facility] Study Date: 10/21/2023 Ordering Provider: [id number] ANGEL GRIGGS MRN/PID: [id number] Fellow: Nurse: Date of /Age: 6 1965 / 58 years Fashion Coordinator: Harleen Penny RDCS, T Gender: M Additional Staff: Height: 187.96 cm Admit Date: Weight: 136.08 kg Admission Status: BSA: 2.58 m2 Department Location: [facility] Blood Pressure: 102 /60 mmHg Study Type: TRANSTHORACIC ECHO (TTE) LIMITED Diagnosis/ICD: Other forms of dyspnea-R06.09; Ischemic cardiomyopathy-I25.5 Indication: Atrial Fibrillation-s/p Cardioversion 10/20/2023, Ablation-08/2023, Abnormal EKG, Nonsustained Ventricular Tachycardia, CAD, Diabetes, HTN, Hyperlipidemia, AICD, NV and PTCA, Atral Flutter, Orthostatic Hypotension, Morbid Obesity, ARLET, Neuropathy, History of PE, CKD-Stage III, PVD CPT Codes: Echo Limited-89366 Study Detail: The following Echo studies were performed: 2D and M-Mode. PHYSICIAN INTERPRETATION: Left Ventricle: Left ventricular systolic function is mildly decreased, with an estimated ejection fraction of 45%. The left ventricular cavity size is normal. Left ventricular diastolic filling was not assessed. Severe anteroseptal hypokinesis. Left Atrium: The left atrium is normal in size. Right Ventricle: The right ventricle is normal in size. There is normal right ventricular global systolic function. Right Atrium: The right atrium is normal in size. Aortic Valve: The aortic valve is trileaflet. Aortic valve regurgitation was not assessed. Mitral Valve: The mitral valve is normal in structure. Mitral valve regurgitation was not assessed. Tricuspid Valve: The tricuspid valve is structurally normal. Tricuspid regurgitation was not assessed. Pulmonic Valve: The pulmonic valve is not well visualized. The pulmonic valve regurgitation was not assessed. Pericardium: There is no pericardial effusion noted. Aorta: The aortic root is normal. Systemic Veins: The inferior vena cava was not well visualized. In comparison to the previous echocardiogram(s): No pericardial effusion is noted. CONCLUSIONS: 1. Left ventricular systolic function is mildly decreased with a 45% estimated ejection fraction. 2. Severe anteroseptal hypokinesis. 3. No pericardial effusion is noted. QUANTITATIVE DATA SUMMARY: 2D MEASUREMENTS: Normal Ranges: Ao Root d: 3.20 cm (2.0-3.7cm) LAs: 3.70 cm (2.7-4.0cm) RVIDd: 2.90 cm (0.9-3.6cm) IVSd: 1.10 cm (0.6-1.1cm) LVPWd: 1.10 cm (0.6-1.1cm) LVIDd: 5.60 cm (3.9-5.9cm) LVIDs: 4.00 cm LV Mass Index: 96.6 g/m2 LV % FS 28.6 % AORTIC VALVE: Normal Ranges: LVOT Diameter: 2.10 cm (1.8-2.4cm) [id number] Angel Griggs MD, [facility] Electronically signed on 10/21/2023 at 4:42:43 PM Final Normal [facility] Heart Transthoracicon LVIDd 5.[address] [facility] Work Phone: LVOT diam 2.[address] [facility] Work Phone: [address], [address] [place] [address] TRANSTHORACIC ECHOCARDIOGRAM REPORT Patient Name: HARRIETT THAKKAR Fátima Physician: [id number] Angel Griggs MD, [facility] Study Date: 10/21/2023 Ordering Provider: [id number] ORTIZ M INDU MRN/PID: [id number] Fellow: Nurse: Date of /Age: 6 1965 / 58 years Fashion Coordinator: Harleen Penny RDCS, RVT Gender: M Additional Staff: Height: 187.96 cm Admit Date: Weight: 136.08 kg Admission Status: BSA: 2.58 m2 Department Location: [facility] Blood Pressure: 102 /60 mmHg Study Type: TRANSTHORACIC ECHO (TTE) LIMITED Diagnosis/ICD: Other forms of dyspnea-R06.09; Ischemic cardiomyopathy-I25.5 Indication: Atrial Fibrillation-s/p Cardioversion 10/20/2023, Ablation-08/2023, Abnormal EKG, Nonsustained Ventricular Tachycardia, CAD, Diabetes, HTN, Hyperlipidemia, AICD, NV and PTCA, Atral Flutter, Orthostatic Hypotension, Morbid Obesity, ARLET, Neuropathy, History of PE, CKD-Stage III, PVD CPT Codes: Echo Limited-09072 Study Detail: The following Echo studies were performed: 2D and M-Mode. PHYSICIAN INTERPRETATION: Left Ventricle: Left ventricular systolic function is mildly decreased, with an estimated ejection fraction of 45%. The left ventricular cavity size is normal. Left ventricular diastolic filling was not assessed. Severe anteroseptal hypokinesis. Left Atrium: The left atrium is normal in size. Right Ventricle: The right ventricle is normal in size. There is normal right ventricular global systolic function. Right Atrium: The right atrium is normal in size. Aortic Valve: The aortic valve is trileaflet. Aortic valve regurgitation was not assessed. Mitral Valve: The mitral valve is normal in structure. Mitral valve regurgitation was not assessed. Tricuspid Valve: The tricuspid valve is structurally normal. Tricuspid regurgitation was not assessed. Pulmonic Valve: The pulmonic valve is not well visualized. The pulmonic valve regurgitation was not assessed. Pericardium: There is no pericardial effusion noted. Aorta: The aortic root is normal. Systemic Veins: The inferior vena cava was not well visualized. In comparison to the previous echocardiogram(s): No pericardial effusion is noted. CONCLUSIONS: 1. Left ventricular systolic function is mildly decreased with a 45% estimated ejection fraction. 2. Severe anteroseptal hypokinesis. 3. No pericardial effusion is noted. QUANTITATIVE DATA SUMMARY: 2D MEASUREMENTS: Normal Ranges: Ao Root d: 3.20 cm (2.0-3.7cm) LAs: 3.70 cm (2.7-4.0cm) RVIDd: 2.90 cm (0.9-3.6cm) IVSd: 1.10 cm (0.6-1.1cm) LVPWd: 1.10 cm (0.6-1.1cm) LVIDd: 5.60 cm (3.9-5.9cm) LVIDs: 4.00 cm LV Mass Index: 96.6 g/m2 LV % FS 28.6 % AORTIC VALVE: Normal Ranges: LVOT Diameter: 2.10 cm (1.8-2.4cm) [id number] Angel Griggs MD, [facility] Electronically signed on 10/21/2023 at 4:42:43 PM Final Angel Rico MD - 10/21/[address], [address] [place] [address] TRANSTHORACIC ECHOCARDIOGRAM REPORT Patient Name: HARRIETT Shine Physician: [id number] Griggs MD, [facility] Study Date: 10/21/2023 Ordering Provider: Iraida GRIGGS MRN/PID: [id number] Fellow: Nurse: Date of /Age: 6 1965 / 58 years Fashion Coordinator: Harleen Penny RD, T Gender: M Additional Staff: Height: 187.96 cm Admit Date: Weight: 136.08 kg Admission Status: BSA: 2.58 m2 Department Location: [facility] Blood Pressure: 102 /60 mmHg Study Type: TRANSTHORACIC ECHO (TTE) LIMITED Diagnosis/ICD: Other forms of dyspnea-R06.09; Ischemic cardiomyopathy-I25.5 Indication: Atrial Fibrillation-s/p Cardioversion 10/20/2023, Ablation-08/2023, Abnormal EKG, Nonsustained Ventricular Tachycardia, CAD, Diabetes, HTN, Hyperlipidemia, AICD, NV and PTCA, Atral Flutter, Orthostatic Hypotension, Morbid Obesity, ARLET, Neuropathy, History of PE, CKD-Stage III, PVD CPT Codes: Echo Limited-35361 Study Detail: The following Echo studies were performed: 2D and M-Mode. PHYSICIAN INTERPRETATION: Left Ventricle: Left ventricular systolic function is mildly decreased, with an estimated ejection fraction of 45%. The left ventricular cavity size is normal. Left ventricular diastolic filling was not assessed. Severe anteroseptal hypokinesis. Left Atrium: The left atrium is normal in size. Right Ventricle: The right ventricle is normal in size. There is normal right ventricular global systolic function. Right Atrium: The right atrium is normal in size. Aortic Valve: The aortic valve is trileaflet. Aortic valve regurgitation was not assessed. Mitral Valve: The mitral valve is normal in structure. Mitral valve regurgitation was not assessed. Tricuspid Valve: The tricuspid valve is structurally normal. Tricuspid regurgitation was not assessed. Pulmonic Valve: The pulmonic valve is not well visualized. The pulmonic valve regurgitation was not assessed. Pericardium: There is no pericardial effusion noted. Aorta: The aortic root is normal. Systemic Veins: The inferior vena cava was not well visualized. In comparison to the previous echocardiogram(s): No pericardial effusion is noted. CONCLUSIONS: 1. Left ventricular systolic function is mildly decreased with a 45% estimated ejection fraction. 2. Severe anteroseptal hypokinesis. 3. No pericardial effusion is noted. QUANTITATIVE DATA SUMMARY: 2D MEASUREMENTS: Normal Ranges: Ao Root d: 3.20 cm (2.0-3.7cm) LAs: 3.70 cm (2.7-4.0cm) RVIDd: 2.90 cm (0.9-3.6cm) IVSd: 1.10 cm (0.6-1.1cm) LVPWd: 1.10 cm (0.6-1.1cm) LVIDd: 5.60 cm (3.9-5.9cm) LVIDs: 4.00 cm LV Mass Index: 96.6 g/m2 LV % FS 28.6 % AORTIC VALVE: Normal Ranges: LVOT Diameter: 2.10 cm (1.8-2.4cm) [id number] Angel Griggs MD, [facility] Electronically signed on 10/21/2023 at 4:42:[address] [facility] Work Phone: [facility] Work Phone: Carbon dioxide, total [Moles /volume] in Serum or PlasmaOrdered By: Angel Griggs on 10-20-2023 CO2 [Moles/Vol] 27.9 mmol/L 21.0-31.0 [facility] Chloride [Moles/volume] in S suad or PlasmaOrdered By: Angel Griggs on 10-20-2023 Chloride [Moles/Vol] 104 mmol/L 98-107 [facility] ECG 12 lead ECGon 10-20-2023 ECG 12 lead ECG [facility] [place] [address] Electrocardiograph Report Signed Patient: Harriett Thakkar MR#: [id number] 285 : 1965 Acct:[id number] Age/Sex: 58 / M ADM Date: 10/20/23 Loc: Room: Type: [facility] Attending Dr: Angel Griggs MD Ordering Provider: Angel Griggs MD, [facility] Date of Service: 10/20/2310/12/1244 ECG/ECG 12 lead ECG: Pre-cardioversion rhythm assessment Copies to: Test Reason : Blood Pressure : / mmHG Vent. Rate : 087 BPM Atrial Rate : 261 BPM P-R Int : 000 ms QRS Dur : 090 ms QT Int : 416 ms P-R-T Axes : 073 -55 019 degrees QTc Int : 500 ms Atrial flutter with 3:1 AV conduction Left anterior fascicular block Cannot rule out Anteroseptal infarct (cited on or before 02-APR-2023) Prolonged QT Abnormal ECG When compared with ECG of 20-OCT-2023 12:38, (Unconfirmed) Significant changes have occurred Confirmed by Arslan Gage ([id number]) on 10/22/2023 2:11:36 PM Referred By: Angel Griggs Electronically Signed By:Arslan Gage REVISED DOCUMENT/11/10/2023/ que (corrected prov sig) Transcribed By: MUS Signed By Arslan Gage MD 11/11/23 1233 Normal [facility] ECG post procedureon 024 ECG post procedure [facility] [place] [address] [place] [address] Electrocardiograph Report Signed Patient: Harriett Thakkar MR#: [id number] 285 : 1965 Acct:[id number] Age/Sex: 58 / M ADM Date: 10/20/23 Loc: Room: Type: [facility] Attending Dr: Angel Griggs MD Ordering Provider: Angel Griggs MD, [facility] Date of Service: 10/20/23/ ECG/ECG post procedure: cv Copies to: Test Reason : Blood Pressure : 125/071 mmHG Vent. Rate : 091 BPM Atrial Rate : 091 BPM P-R Int : 236 ms QRS Dur : 092 ms QT Int : 410 ms P-R-T Axes : 067 -09 041 degrees QTc Int : 504 ms Sinus rhythm with 1st degree AV block Low voltage QRS Cannot rule out Anteroseptal infarct (cited on or before 02-APR-2023) Abnormal ECG When compared with ECG of 20-OCT-2023 12:44, (Unconfirmed) Sinus rhythm has replaced Atrial flutter Left anterior fascicular block is no longer present Confirmed by Hillary De Leon ([id number]) on 10/20/2023 5:25:29 PM Referred By: Angel Griggs Electronically Signed By:Hillary De Leon REVISED DOCUMENT/11/10/2023/ kh (corrected prov sig) Transcribed By: MUS Signed By Hillary De Leon MD 4 0005 Normal [facility] Electrolyteson 10-20-2023 Anion gap [Moles/Vol] 12.2 mmol/L Normal 6.0-15.0 [facility] Comment on above: Result Comment: PERF ORMED BY: [place] [address] PATHOLOGIST ARTIST RELATIONSHIP MANAGER MELANI GUTIÉRREZ M.D. Performed By: #### G LULS #### Point of Care testing , Chloride [Moles/Vol] 104 mmol/L Normal 98-107 [facility] Comment on above: Performed By: #### G LULS #### Point of Care testing , CO2 [Moles/Vol] 27.9 mmol/L Normal 21.0-31.0 [facility] Comment on above: Performed By: #### G LULS #### Point of Care testing , Potassium [Moles/Vol] 4.1 mmol/L Normal 3.5-5.1 [facility] Comment on above: Performed By: #### G LULS #### Point of Care testing , Sodium [Moles/Vol] 140 mmol/L Normal 136-145 [facility] Comment on above: Performed By: #### G LULS #### Point of Care testing , Potassium [Moles/volume] in Serum or PlasmaOrdered By: Angel Griggs on 10-20-2023 Potassium [Moles/Vol] 4.1 mmol/L 3.5-5.1 [facility] Serum or plasma anion gap de terminationOrdered By: Angel Griggs on 10-20-2023 Anion gap [Moles/Vol] 12.2 mmol/L 6.0-15.0 [facility] Sodium [Moles/volume] in Ser um or PlasmaOrdered By: Angel Griggs on 10-20-2023 Sodium [Moles/Vol] 140 mmol/L 136-145 [facility] ECG 12 Leadon 10-18-2023 ECG revealed atrial flutter with variable AV conduction, low voltage, anteroseptal myocardial infarction of undetermined age [facility] Work Phone: Activated partial thrombopla stin time (aPTT) in platelet poor plasma by coagulation aOrdered By: José Luis Coleman on 09-14-2023 aPTT Coag (PPP) [Time] 35.2 s 25.1-36.5 [facility] Comment on above: A hematocrit value g reater than 55% may lead to inaccurate results in coagulation testing. Patients having hematocrit values >55% require a special collection tube for coagulation studies. Please contact the laboratory at [phone] for redraw instructions. Alanine aminotransferase [En zymatic activity/volume] in Serum or PlasmaOrdered By: José Luis Coleman on 09-14-2023 ALT [Catalytic activity/Vol] 21 U/L Normal 7-52 [facility] Comment on above: Performed By: #### L IPID, CBC, PT, CMP #### [facility] [address] [place] [address] Albumin [Mass/volume] in Ser um or Plasma by Bromocresol green (BCG) dye binding methoOrdered By: José Luis Coleman on 09-14-2023 Albumin BCG dye [Mass/Vol] 4.1 g/dL 3.5-5.7 [facility] Alkaline phosphatase [Enzyma tic activity/volume] in Serum or PlasmaOrdered By: José Luis Coleman on 09-14-2023 ALP [Catalytic activity/Vol] 73 U/L Normal 34-104 [facility] Comment on above: Performed By: #### L IPID, CBC, PT, CMP #### [address] Aspartate aminotransferase [ Enzymatic activity/volume] in Serum or PlasmaOrdered By: José Luis Coleman on 09-14-2023 AST [Catalytic activity/Vol] 19 U/L Normal 13-39 [facility] Comment on above: Performed By: #### L IPID, CBC, PT, CMP #### [facility] [address] [place] [address] Automated basophil %Ordered By: José Luis Coleman on 09-14-2023 Basophils/100 WBC (Bld) 0.8 % Normal . [facility] Comment on above: Performed By: #### L IPID, CBC, PT, CMP #### [facility] [address] [place] [address] Automated basophil countOrde red By: José Luis Coleman on 09-14-2023 Basophils (Bld) [#/Vol] 0.1 10*3/uL Normal 0.0-0.2 [facility] Comment on above: Result Comment: PERF ORMED BY: [place] [address] PATHOLOGIST ARTIST RELATIONSHIP MANAGER MELANI GUTIÉRREZ M.D. Performed By: #### L IPID, CBC, PT, CMP #### [address] Automated blood monocyte cou ntOrdered By: José Luis Coleman on 09-14-2023 Monocytes (Bld) [#/Vol] 0.7 10*3/uL Normal 0.0-0.8 [facility] Comment on above: Performed By: #### L IPID, CBC, PT, CMP #### [facility] [address] [place] [address] Automated eosinophil %Ordere d By: José Luis Coleman on 09-14-2023 Eosinophils/100 WBC (Bld) 1.5 % Normal . [facility] Comment on above: Performed By: #### L IPID, CBC, PT, CMP #### [address] Automated eosinophil countOr dered By: José Luis Coleman on 09-14-2023 Eosinophils (Bld) [#/Vol] 0.1 10*3/uL Normal 0.0-0.45 [facility] Comment on above: Performed By: #### L IPID, CBC, PT, CMP #### [address] Automated monocyte %Ordered By: José Luis Coleman on 09-14-2023 Monocytes/100 WBC (Bld) 8.9 % Normal . [facility] Comment on above: Performed By: #### L IPID, CBC, PT, CMP #### [address] Automated neutrophil %Ordere d By: José Luis Coleman on 09-14-2023 Neutrophils/100 WBC (Bld) 69.2 % Normal . [facility] Comment on above: Performed By: #### L IPID, CBC, PT, CMP #### [facility] [address] [place] [address] BNP ser/plasOrdered By: Inez Coleman on 09-14-2023 Natriuretic peptide B (Bld) [Mass/Vol] 279.0 pg/mL High 5-100 [facility] Comment on above: Result Comment: PERF ORMED BY: [place] [address] PATHOLOGIST ARTIST RELATIONSHIP MANAGER MELANI GUTIÉRREZ M.D. Performed By: #### L IPID, CBC, PT, CMP #### [address] Basic Metabolic Panelon 08-20 Creatinine Clr Calc Pharmacy 94.74 Normal [facility] Comment on above: Result Comment: PERF ORMED BY: [place] [address] PATHOLOGIST ARTIST RELATIONSHIP MANAGER MELANI GUTIÉRREZ M.D. Performed By: #### L IPID, CBC, PT, CMP #### [address] GFR/1.73 sq M.predicted MDRD (S/P/Bld) [Vol rate/Area] mL/min/{1.73_m2} [facility] Comment on above: Performed By: #### L IPID, CBC, PT, CMP #### [address] Bilirubin.direct [Mass/volum e] in Serum or PlasmaOrdered By: José Luis Coleman on 09-14-2023 Bilirubin.direct [Mass/Vol] 0.20 mg/dL 0.03-0.18 [facility] Bilirubin.total [Mass/volume ] in Serum or PlasmaOrdered By: José Luis Coleman on 09-14-2023 Bilirubin [Mass/Vol] 0.7 mg/dL Normal 0.3-1.0 [facility] Comment on above: Performed By: #### L IPID, CBC, PT, CMP #### [address] Calcium [Mass/volume] in Ser um or PlasmaOrdered By: José Luis Coleman on 09-14-2023 Calcium [Mass/Vol] 9.4 mg/dL Normal 8.6-10.3 [facility] Comment on above: Performed By: #### L IPID, CBC, PT, CMP #### [facility] [address] [place] [address] Carbon dioxide, total [Moles /volume] in Serum or PlasmaOrdered By: José Luis Coleman on 09-14-2023 CO2 [Moles/Vol] 29.8 mmol/L Normal 21.0-31.0 [facility] Comment on above: Performed By: #### L IPID, CBC, PT, CMP #### [place] [address] [place] Chloride [Moles/volume] in S suad or PlasmaOrdered By: José Luis Coleman on 09-14-2023 Chloride [Moles/Vol] 104 mmol/L Normal 98-107 [facility] Comment on above: Performed By: #### L IPID, CBC, PT, CMP #### [place] [address] [place] Complete Blood Count Auto Di ffon 09-14-2023 Mean Corpuscular HGB Conc 35.2 g/dL Normal 32.5-35.6 [facility] Comment on above: Performed By: #### L IPID, CBC, PT, CMP #### [place] [address] [place] Monocytes/100 WBC (Bld) 19.54 % Normal 0.00-20.00 [facility] Comment on above: Performed By: #### L IPID, CBC, PT, CMP #### [place] [address] [place] NRBC% 0.1 /100{WBC} Normal 0-0.5 [facility] Comment on above: Performed By: #### L IPID, CBC, PT, CMP #### [place] [address] [place] Creatine kinase [Enzymatic a ctivity/volume] in Serum or PlasmaOrdered By: José Luis Coleman on 09-14-2023 CK [Catalytic activity/Vol] 68 U/L Normal 30-223 [facility] Comment on above: Performed By: #### L IPID, CBC, PT, CMP #### [place] [address] [place] Creatinine [Mass/volume] in Serum or PlasmaOrdered By: José Luis Coleman on 09-14-2023 Creatinine [Mass/Vol] 1.23 mg/dL Normal 0.70-1.30 [facility] Comment on above: Performed By: #### L IPID, CBC, PT, CMP #### [facility] [address] ECG 12 lead ECGon 09-14-2023 ECG 12 lead ECG [facility] [place] [address] [place] [address] Electrocardiograph Report Signed Patient: Harriett Thakkar MR#: [id number] : 1965 Acct:[id number] Age/Sex: 58 / M ADM Date: 09/14/23 Loc: ER Room: Type: [facility] ER Attending Dr: Ordering Provider: José Luis [...] right Confirmed by José Luis Coleman DO ([id number]) on 09/14/2023 8:33:06 PM Referred By: Electronically Signed By:José Luis Coleman DO Transcribed By: MUS Signed By José Luis Coleman DO 2032 Normal [facility] Erythrocyte distribution wid th [Ratio] by Automated countOrdered By: José Luis Coleman on 09-14-2023 Erythrocyte distribution width (RBC) [Ratio] 15.8 % High 12.0-14.8 [facility] Comment on above: Performed By: #### L IPID, CBC, PT, CMP #### [facility] [address] [place] [address] Erythrocytes [#/volume] in B lood by Automated countOrdered By: José Luis Cloeman on 09-14-2023 RBC (Bld) [#/Vol] 4.23 10*6/uL Normal 3.90-5.60 [facility] Comment on above: Performed By: #### L IPID, CBC, PT, CMP #### [facility] [address] Glucose [Mass/volume] in Ser um or PlasmaOrdered By: José Luis Coleman on 09-14-2023 Glucose [Mass/Vol] 84 mg/dL Normal 70-100 [facility] Comment on above: ADA recommended refe rence rangeRandom Glucose Reference Range is dependent on time and content of last meal. Glucose of more than 200 mg/dL in a nonstressed, ambulatory subject supports the diagnosis of Diabetes Mellitus. Result Comment: [place] om Glucose Reference Range is dependent on time and content of last meal. Glucose of more than 200 mg/dL in a nonstressed, ambulatory subject supports the diagnosis of Diabetes Mellitus. ADA recommended reference range Performed By: #### L IPID, CBC, PT, CMP #### [facility] [address] [place] [address] Hematocrit [Volume Fraction] of Blood by Automated countOrdered By: José Luis Coleman on 09-14-2023 Hematocrit (Bld) [Volume fraction] 39.4 % Normal 38.8-50.0 [facility] Comment on above: Performed By: #### L IPID, CBC, PT, CMP #### [facility] [address] [place] [address] Hemoglobin [Mass/volume] in BloodOrdered By: José Luis Coleman on 09-14-2023 Hemoglobin (Bld) [Mass/Vol] 13.9 g/dL Normal 13.0-17.0 [facility] Comment on above: Performed By: #### L IPID, CBC, PT, CMP #### [facility] [address] [place] [address] Hepatic Panelon 09-14-2023 Albumin [Mass/Vol] 4.1 g/dL Normal 3.5-5.7 [facility] Comment on above: Performed By: #### L IPID, CBC, PT, CMP #### [facility] [address] Bilirubin,Indirect 0.5 mg/dL Normal [facility] Comment on above: Performed By: #### L IPID, CBC, PT, CMP #### [facility] [address] Bilirubin.indirect [Mass/Vol] 0.20 mg/dL High 0.03-0.18 [facility] Comment on above: Performed By: #### L IPID, CBC, PT, CMP #### [facility] [address] INR in Platelet poor plasma by Coagulation assayOrdered By: José Luis Coleman on 09-14-2023 INR Coag (PPP) [Relative time] 1.5 {INR} Normal [facility] Comment on above: INR Therapeutic Rang e [...] valves: 3 - 4.5 Performed By: #### L IPID, CBC, PT, CMP #### [facility] [address] Leukocytes [#/volume] correc kaylee for nucleated erythrocytes in Blood by Automated counOrdered By: José Luis Coleman on 09-14-2023 WBC corrected for nucl RBC Auto (Bld) [#/Vol] 7.4 10*3/uL 4.1-10.5 [facility] Leukocytes [#/volume] in Blo od by Automated countOrdered By: José Luis Coleman on 09-14-2023 WBC (Bld) [#/Vol] 7.4 10*3/uL Normal 4.1-10.5 [facility] Comment on above: Performed By: #### L IPID, CBC, PT, CMP #### [address] Lymphocytes [#/volume] in Bl ood by Automated countOrdered By: José Luis Coleman on 09-14-2023 Lymphocytes (Bld) [#/Vol] 1.4 10*3/uL Normal 1.00-4.8 [facility] Comment on above: Performed By: #### L IPID, CBC, PT, CMP #### [address] Lymphocytes/100 leukocytes i n Blood by Automated countOrdered By: José Luis Coleman on 09-14-2023 Lymphocytes/100 WBC (Bld) 19.6 % Normal . [facility] Comment on above: Performed By: #### L IPID, CBC, PT, CMP #### [address] MCH [Entitic mass] by Automa kaylee countOrdered By: José Luis Coleman on 09-14-2023 MCH (RBC) [Entitic mass] 32.7 pg Normal 27.5-35.2 [facility] Comment on above: Performed By: #### L IPID, CBC, PT, CMP #### [address] MCHC Auto (RBC) [Mass/Vol]Or dered By: José Luis Coleman on 09-14-2023 MCHC (RBC) [Mass/Vol] 35.2 g/dL 32.5-35.6 [facility] MCV [Entitic volume] by Auto mated countOrdered By: José Luis Coleman on 09-14-2023 MCV (RBC) [Entitic vol] 93.0 fL Normal 83.5-101 [facility] Comment on above: Performed By: #### L IPID, CBC, PT, CMP #### [address] Monocyte distribution width [Entitic volume] in Blood by AutomatedOrdered By: José Luis Coleman on 09-14-2023 Monocyte distribution width Auto (Bld) [Entitic vol] 19.54 % 0.00-20.00 [facility] Neutrophils [#/volume] in Bl ood by Automated countOrdered By: José Luis Coleman on 09-14-2023 Neutrophils (Bld) [#/Vol] 5.1 10*3/uL Normal 1.8-7.7 [facility] Comment on above: Performed By: #### L IPID, CBC, PT, CMP #### [facility] [address] [place] [address] No Panel InformationOrdered By: José Luis Coleman on 09-14-2023 Estimated GFR (CKD-EPI) > 60.0 mL/Min [facility] Creatinine Clearance (Chem 94.74 [facility] Nucleated erythrocytes [Pres ence] in Blood by Automated countOrdered By: José Luis Coleman on 09-14-2023 Nucleated RBC Auto Ql (Bld) 0.1 /100{WBC} 0-0.5 [facility] Partial Thromboplastin Timeo n 09-14-2023 aPTT Coag (Bld) [Time] 35.2 s Normal 25.1-36.5 [facility] Comment on above: Result Comment: A he matocrit value greater than 55% may lead to inaccurate results in coagulation testing. Patients having hematocrit values >55% require a special collection tube for coagulation studies. Please contact the laboratory at [phone] for redraw instructions. PERFORMED BY: [place] [address] PATHOLOGIST ARTIST RELATIONSHIP MANAGER MELANI GUTIÉRREZ M.D. Performed By: #### L IPID, CBC, PT, CMP #### [facility] [address] [place] [address] Platelet mean volume [Entiti c volume] in Blood by Automated countOrdered By: José Luis Coleman on 09-14-2023 Platelet mean volume (Bld) [Entitic vol] 8.8 fL Normal 6.6-10.1 [facility] Comment on above: Performed By: #### L IPID, CBC, PT, CMP #### [address] Platelets [#/volume] in Bloo d by Automated countOrdered By: José Luis Coleman on 09-14-2023 Platelets (Bld) [#/Vol] 197 10*3/uL Normal 150-450 [facility] Comment on above: Performed By: #### L IPID, CBC, PT, CMP #### [address] Potassium [Moles/volume] in Serum or PlasmaOrdered By: José Luis Coleman on 09-14-2023 Potassium [Moles/Vol] 4.0 mmol/L Normal 3.5-5.1 [facility] Comment on above: Performed By: #### L IPID, CBC, PT, CMP #### [address] Protein [Mass/volume] in Ser um or PlasmaOrdered By: José Luis Coleman on 09-14-2023 Protein [Mass/Vol] 6.4 g/dL Normal 6.4-8.9 [facility] Comment on above: Performed By: #### L IPID, CBC, PT, CMP #### [address] Prothrombin time (PT)Ordered By: José Luis Coleman on 09-14-2023 PT Coag (PPP) [Time] 16.7 s High 9.0-12.9 [facility] Comment on above: A hematocrit value g reater than 55% may lead to inaccurate results in coagulation testing. Patients having hematocrit values >55% require a special collection tube for coagulation studies. Please contact the laboratory at [phone] for redraw instructions. Result Comment: A he matocrit value greater than 55% may lead to inaccurate results in coagulation testing. Patients having hematocrit values >55% require a special collection tube for coagulation studies. Please contact the laboratory at [phone] for redraw instructions. Performed By: #### L IPID, CBC, PT, CMP #### [place] [id number] [place] Serum globulin measurement b y calculation (mass/volume)Ordered By: José Luis Coleman on 09-14-2023 Globulin (S) [Mass/Vol] 2.3 g/dL Normal [facility] Comment on above: Performed By: #### L IPID, CBC, PT, CMP #### [facility] [address] [place] [address] Serum or plasma albumin/glob ulin mass ratioOrdered By: José Luis Coleman on 09-14-2023 Albumin/Globulin [Mass ratio] 1.8 {ratio} Normal [facility] Comment on above: Performed By: #### L IPID, CBC, PT, CMP #### [address] Serum or plasma anion gap de terminationOrdered By: José Luis Coleman on 09-14-2023 Anion gap [Moles/Vol] 7.2 mmol/L Normal 6.0-15.0 [facility] Comment on above: Performed By: #### L IPID, CBC, PT, CMP #### [address] Serum or plasma non-glucuron idated bilirubin measurement (mass/volume)Ordered By: José Luis Coleman on 09-14-2023 Bilirubin.indirect [Mass/Vol] 0.5 mg/dL [facility] Sodium [Moles/volume] in Ser um or PlasmaOrdered By: José Luis Coleman on 09-14-2023 Sodium [Moles/Vol] 137 mmol/L Normal 136-145 [facility] Comment on above: Performed By: #### L IPID, CBC, PT, CMP #### [facility] [address] [place] [address] Troponin I High Sensitivityo n 09-14-2023 Troponin I High Sensitivity 13.7 pg/mL Normal 0.0-20.0 [facility] Comment on above: Result Comment: PERF ORMED BY: [place] [address] PATHOLOGIST ARTIST RELATIONSHIP MANAGER MELANI GUTIÉRREZ M.D. Performed By: #### L IPID, CBC, PT, CMP #### [facility] [address] Troponin I.cardiac [Mass/vol ume] in Serum or Plasma by Detection limit <= 0.01 ng/Ordered By: José Luis Coleman on 09-14-2023 Troponin I.cardiac DL <= 0.01 ng/mL [Mass/Vol] 13.7 pg/mL 0.0-20.0 [facility] Urea nitrogen [Mass/volume] in Serum or PlasmaOrdered By: José Luis Coleman on 09-14-2023 Urea nitrogen [Mass/Vol] 20 mg/dL Normal 7-25 [facility] Comment on above: Performed By: #### L IPID, CBC, PT, CMP #### [facility] [address] [place] [address] XR chest 1V portableon 09-14 XR chest 1V portable [facility] [place] [address] [place] [address] XRay Report Signed Patient: Harriett Thakkar MR#: [id number] : 1965 Acct:[id number] Age/Sex: 58 / M ADM Date: 09/14/23 Loc: ER Room: Type: [facility] ER Attending Dr: Copies to: José Luis [...] Michele Maldonado M.D.09/14/2023 8:45 PM Dictation Location: [place] [address] Transcribed By: [facility] 09/14/232044 Dictated By: Michele Maldonado DO 09/14/232043 Signed By: 09/14/232044 Normal [facility] Glucose Test strip manual (B ld) [Mass/Vol]on 08-31-2023 Glucose [Mass/Vol] 262 mg/dL High 74-99 [facility] Comment on above: Performed By: #### 3 4529-8 #### TD PERALTA ([id number]) [facility] ([facility] [address] [place] [address] Glucose [Mass/Vol] 262 mg/dL High 74 - 99 mg/dL [facility] Interpretation and review of laboratory results Abnormal [facility] Glucose [Mass/Vol] 254 mg/dL High 74-99 [facility] Comment on above: Performed By: #### 3 4529-8 #### TD PERALTA ([id number]) [facility] [address] [place] [address] Glucose [Mass/Vol] 254 mg/dL High 74 - 99 mg/dL [facility] Interpretation and review of laboratory results Abnormal [facility] Glucose [Mass/Vol] 140 mg/dL High 74-99 [facility] Comment on above: Performed By: #### 3 4529-8 #### TD PERALTA ([id number]) [facility] [address] [place] [address] Glucose [Mass/Vol] 140 mg/dL High 74 - 99 mg/dL [facility] Interpretation and review of laboratory results Abnormal [facility] XR Chest Single viewon 08-31 1. Mild right hilar prominence, possibly secondary to adenopathy. Otherwise, evidence of acute cardiopulmonary process. Signed by: Kevin Loco 08/31/2023 6:27 PM Dictation workstation: [id number] [facility] MMODAL Interpreted By: Kevin Loco, STUDY: XR CHEST 1 VIEW; 08/30/2023 2:29 pm INDICATION: Signs/Symptoms:short of breath. COMPARISON: Chest radiograph 06/30/2023 ACCESSION NUMBER(S): [id number] ORDERING CLINICIAN: NATHAN AU FINDINGS: AP radiograph of the chest was provided. DEVICES: Stable left-sided ICD. CARDIOMEDIASTINAL SILHOUETTE: Cardiomediastinal silhouette is stable in size and configuration.Athero sclerotic calcifications of the aortic arch. LUNGS: Mild right hilar prominence, compared with the prior radiograph possibly secondary to adenopathy. Otherwise no focal consolidation. No pneumothorax. No pleural effusion. BONES: No acute osseous changes. MMODAL Kevin Loco MD - 08/31/2023 Interpreted By: Kevin oLco, STUDY: XR CHEST 1 VIEW; 08/30/2023 2:29 pm INDICATION: Signs/Symptoms:short of breath. COMPARISON: Chest radiograph 06/30/2023 ACCESSION NUMBER(S): [id number] ORDERING CLINICIAN: NATHAN AU FINDINGS: AP radiograph [...] Kevin Loco 08/31/2023 6:27 PM Dictation workstation: [id number] [facility] Work Phone: XR Chest Single viewOrdered By: Kevin Loco on 08-31-2023 [facility] Work Phone: ECG 12-LEADon 08-30-2023 ECG 12-LEAD Ventricular Rate 99 Atrial Rate 99 P-R Interval 216 QRS Duration 90 Q-T Interval 370 QTC Calculation(Bazett) 474 P Minden 57 R Minden 56 T Minden -6 QRS Count 16 Q Onset 221 P Onset 113 P Offset 183 T Offset 406 QTC Fredericia 437 Diagnosis Sinus rhythm with 1st degree AV block Low voltage QRS Cannot rule out Anteroseptal infarct (cited on or before 29-JUN-2023) Abnormal ECG When compared with ECG of 30-AUG-2023 08:36, (unconfirmed) No significant change was found Confirmed by Joe Echevarria ([id number]) on 10/07/2023 9:33:04 AM Normal [facility] Glucose Test strip manual (B ld) [Mass/Vol]on 08-30-2023 Glucose [Mass/Vol] 205 mg/dL High 74-99 [facility] Comment on above: Performed By: #### 3 4529-8 #### TD PERALTA ([id number]) [facility] [address] [facility] [place] [address] Glucose [Mass/Vol] 205 mg/dL High 74 - 99 mg/dL [facility] Interpretation and review of laboratory results Abnormal [facility] Glucose [Mass/Vol] 189 mg/dL High 74-99 [facility] Comment on above: Performed By: #### 3 4529-8 #### TD PERALTA ([id number]) [facility] [address] [facility] [place] [address] Glucose [Mass/Vol] 189 mg/dL High 74 - 99 mg/dL [facility] Interpretation and review of laboratory results Abnormal [facility] Glucose [Mass/Vol] 247 mg/dL High 74 - 99 mg/dL [facility] Interpretation and review of laboratory results Abnormal [facility] Glucose [Mass/Vol] 247 mg/dL High 74-99 [facility] Comment on above: Performed By: #### 3 4529-8 #### TD PERALTA ([id number]) [facility] [address] [facility] [place] [address] Glucose [Mass/Vol] 174 mg/dL High 74-99 [facility] Comment on above: Performed By: #### 3 4529-8 #### TD PERALTA ([id number]) [facility] [address] [place] [address] Glucose [Mass/Vol] 174 mg/dL High 74 - 99 mg/dL [facility] Interpretation and review of laboratory results Abnormal [facility] XR CHEST 1 VIEWon 08-30-2023 XR CHEST 1 VIEW Interpreted By: Kevin Loco, STUDY: XR CHEST 1 VIEW; 08/30/2023 2:29 pm INDICATION: Signs/Symptoms:short of breath. COMPARISON: Chest radiograph 06/30/2023 ACCESSION NUMBER(S): [id number] ORDERING CLINICIAN: NATHAN AU FINDINGS: AP radiograph [...] Kevin Loco 08/31/2023 6:27 PM Dictation workstation: [id number] Normal [facility] XR Chest Single viewon 08-30 Radiology Study observation (narrative) [facility] Work Phone: Activated clotting timeon ACT Coag (Bld) 284 s High 89-169 [facility] Comment on above: Result Comment: Targ et ACT range will vary based on the patient population, clinical status, and surgical intervention occurring. Performed By: #### 3 4529-8 #### TD PERALTA ([id number]) [facility] ([facility]) [address] [facility] [place] [address] ACT Coag (Bld) 353 s High 89-169 [facility] Comment on above: Result Comment: Targ et ACT range will vary based on the patient population, clinical status, and surgical intervention occurring. Performed By: #### 2 341-6 #### TD PERALTA ([id number]) [facility] ([facility]) [address] [place] [address] ACT Coag (Bld) [address] Comment on above: Result Comment: Targ et ACT range will vary based on the patient population, clinical status, and surgical intervention occurring. Performed By: #### 2 341-6 #### TD PERALTA ([id number]) [facility] [address] [place] [address] ACT Coag (Bld) [address] Comment on above: Result Comment: Targ et ACT range will vary based on the patient population, clinical status, and surgical intervention occurring. Performed By: #### 3 4529-8 #### TD JOLLYFRI ([id number]) [facility] ([facility]) [address] [place] [address] ACT Coag (Bld) [address] Comment on above: Result Comment: Targ et ACT range will vary based on the patient population, clinical status, and surgical intervention occurring. Performed By: #### 2 341-6 #### TD CARLOSI ([id number]) [facility] [address] [place] [address] ACT Coag (Bld) [address] Comment on above: Result Comment: Targ et ACT range will vary based on the patient population, clinical status, and surgical intervention occurring. Performed By: #### 2 341-6 #### TD JOLLYFRI ([id number]) [facility] ([facility]) [address] [place] [address] ACT Coag (Bld) [address] Comment on above: Result Comment: Targ et ACT range will vary based on the patient population, clinical status, and surgical intervention occurring. Performed By: #### 2 341-6 #### TD JOLLYFRI ([id number]) [facility] [address] [place] [address] ACT Coag (Bld) [address] Comment on above: Result Comment: Targ et ACT range will vary based on the patient population, clinical status, and surgical intervention occurring. Performed By: #### 2 341-6 #### TD PERALTA ([id number]) [facility] [address] [place] [address] Coagulation tissue factor in ducedon 08-29-2023 PT Coag (PPP) [Time] 14.9 s High 9.8-12.8 [facility] Comment on above: Performed By: #### 5 902-2 #### TD PERALTA ([id number]) [facility] [address] [place] [address] ECG 12-LEADon 08-29-2023 ECG 12-LEAD Ventricular Rate 75 Atrial Rate 326 QRS Duration 90 Q-T Interval 390 QTC Calculation(Bazett) 435 R Minden 63 T Minden 14 QRS Count 12 Q Onset 217 T Offset 412 QTC Fredericia 419 Diagnosis Atrial fibrillation with occasional ventricular-paced complexes Low voltage QRS Cannot rule out Anteroseptal infarct , age undetermined Abnormal ECG Confirmed by Brice Young ([id number]) on 09/02/2023 3:53:55 PM Normal [facility] Electrophysiology studyon Addendum by Lior Villeda MD on 08/29/2023 1:59 PM EST Persistent Atrial Fibrillation ablation Procedures Atrial Fibrillation ablation (35036), LA Pacing and recording (99914), 3D Mapping (73412), Intracardiac Echocardiogram (52760), Transseptal Catheterization (29097), Ultrasound Guided vascular access (45714),Additional Afib Ablation (60940) Direct current cardioversion (97328) Patient history: Please refer to the detailed [...] under general anesthesia (administered and monitored by shipping order clerk and ONCOLOGY COORDINATOR). Anesthesia sedated and intubated the patient without [...] noted. Initial imaging revealed No pericardial effusion. 58666 units of heparin were given and a [...] capture. Post ablati (more content not included)... [facility] Work Phone: [facility] Work Phone: Glucose Test strip manual (B ld) [Mass/Vol]on 08-29-2023 Glucose [Mass/Vol] 216 mg/dL High 74-99 [facility] Comment on above: Performed By: #### 2 341-6 #### TD PERALTA ([id number]) [facility] ([facility]) [address] [place] [address] Glucose [Mass/Vol] 216 mg/dL High 74 - 99 mg/dL [facility] Interpretation and review of laboratory results Abnormal [facility] Glucose [Mass/Vol] 226 mg/dL High 74-99 [facility] Comment on above: Performed By: #### 2 341-6 #### TD PERALTA ([id number]) [facility]) [address] [place] [address] Glucose [Mass/Vol] 226 mg/dL High 74 - 99 mg/dL [facility] Interpretation and review of laboratory results Abnormal [facility] PT Coag (PPP) [Time]on 08-29 INR Coag (PPP) [Relative time] 1.3 High 0.9-1.1 [facility] Comment on above: Performed By: #### 5 902-2 #### TDTHONY PERALTA ([id number]) [facility]) [address] [place] [address] INR Coag (PPP) [Relative time] 1.3 {INR} High 0.9 - 1.1 [facility] Interpretation and review of laboratory results Abnormal [facility] Protime-INRon 08-29-2023 PT Coag (PPP) [Time] 14.9 s High [facility] TRANSESOPHAGEAL ECHO (CLEO)on 08-29-2023 TRANSESOPHAGEAL ECHO (CLEO) [facility], [address] [place] [address] [id number] [phone] and TRANSESOPHAGEAL ECHOCARDIOGRAM REPORT Patient Name: HARRIETT Shine Physician: [id number] Guille Cunha MD Study Date: 08/29/2023 Ordering Provider: [id number] VILLEDA MRN/PID: [id number] Fellow: Nurse: Date of /Age: 6 1965 / 58 years Fashion Coordinator: MACK Gorman RDCS Gender: M Additional Staff: Height: 187.96 cm Admit Date: 08/29/2023 Weight: 145.61 kg Admission Status: Outpatient BSA: 2.66 m2 Department Location: [facility] Blood Pressure: 157 /92 mmHg Study Type: TRANSESOPHAGEAL ECHO (CLEO) Diagnosis/ICD: Unspecified atrial fibrillation-I48.91 Indication: Abnormal EKG CPT Code: CLEO Complete-57032; Doppler Limited-59650; Color Doppler-69335 Patient History: Pertinent History: A-Fib, HTN, Hyperlipidemia, [...] No left atrial thrombus. QUANTITATIVE DATA SUMMARY: [id number] Guille Cunha MD Electronically signed on 08/29/2023 at 9:33:09 AM Final [facility] US Heart Transesophagealon 1 10-30-2022 [facility], [facility] [address]Amy [phone] and TRANSESOPHAGEAL ECHOCARDIOGRAM REPORT Patient Name: HARRIETT THAKKAR Fátima Physician: [id number] Guille Cunha MD Study Date: 08/29/2023 Ordering Provider: [id number] LIOR VILLEDA MRN/PID: [id number] Fellow: Nurse: Date of /Age: 6 1965 / 58 years Fashion Coordinator: MACK Gorman RDCS Gender: M Additional Staff: Height: 187.96 cm Admit Date: 08/29/2023 Weight: 145.61 kg Admission Status: Outpatient BSA: 2.66 m2 Department Location: [facility] Blood Pressure: 157 /92 mmHg Study Type: TRANSESOPHAGEAL ECHO (CLEO) Diagnosis/ICD: Unspecified atrial fibrillation-I48.91 Indication: Abnormal EKG CPT Code: CLEO Complete-08445; Doppler Limited-46528; Color Doppler-43683 Patient History: Pertinent History: A-Fib, HTN, Hyperlipidemia, [...] No left atrial thrombus. QUANTITATIVE DATA SUMMARY: [id number] Guille Cunha MD Electronically signed on 08/29/2023 at 9:33:09 AM Final Guille Xavier MD PhD - 08/29/2023 [facility], [address] [place] [address] [id number] [phone] and TRANSESOPHAGEAL ECHOCARDIOGRAM REPORT Patient Name: HARRIETT Shine Physician: [id number] Guille Cunha MD Study Date: 08/29/2023 Ordering Provider: [id number] LIOR VILLEDA MRN/PID: [id number] Fellow: Nurse: Date of /Age: 6 1965 / 58 years Fashion Coordinator: MACK Gorman RDCS Gender: M Additional Staff: Height: 187.96 cm Admit Date: 08/29/2023 Weight: 145.61 kg Admission Status: Outpatient BSA: 2.66 m2 Department Location: [facility] Blood Pressure: 157 /92 mmHg Study Type: TRANSESOPHAGEAL ECHO (CLEO) Diagnosis/ICD: Unspecified atrial fibrillation-I48.91 Indication: Abnormal EKG CPT Code: CLEO Complete-50932; Doppler Limited-05088; Color Doppler-85071 Patient History: Pertinent History: A-Fib, HTN, Hyperlipidemia, [...] No left atrial thrombus. QUANTITATIVE DATA SUMMARY: [id number] Guille Cunha MD Electronically signed on 08/29/2023 at 9:33:[address] [facility] Work Phone: US Heart TransesophagealOrde red By: Guille Cunha on 08-29-2023 [facility] Work Phone: Basic metabolic 2000 panelon 08-09-2023 Anion gap [Moles/Vol] 14 mmol/L Normal 10-20 [facility] Comment on above: Performed By: #### 2 4321-2 #### TD PERALTA ([id number]) [facility] ([facility]) [address] [place] [address] Calcium [Mass/Vol] 8.6 mg/dL Normal 8.6-10.3 [facility] Comment on above: Performed By: #### 2 4321-2 #### TD PERALTA ([id number]) [facility] ([facility]) [address] [place] [address] Chloride [Moles/Vol] 104 mmol/L Normal 98-107 [facility] Comment on above: Performed By: #### 2 4321-2 #### TD PERALTA ([id number]) [facility] [address] [place] [address] CO2 [Moles/Vol] 27 mmol/L Normal 21-32 [facility] Comment on above: Performed By: #### 2 432-2 #### TD PERALTA ([id number]) [facility] [address] [place] [address] Creatinine [Mass/Vol] 1.13 mg/dL Normal 0.50-1.30 [facility] Comment on above: Performed By: #### 2 432-2 #### TD PERALTA ([id number]) [facility]) [address] [place] [place] [address] GFR/1.73 sq M.predicted MDRD (S/P/Bld) [Vol rate/Area] 74 mL/min/1.73m*2 Normal >60 [facility] Comment on above: Result Comment: Calc ulations of estimated GFR are performed using the 2020 CKD-EPI Study Refit equation without the race variable for the IDMS-Traceable creatinine methods. https://jasn.asnjournals.org/content/early/ASN.3037859 988 Performed By: #### 2 432-2 #### TD PERALTA ([id number]) [facility]) [address] [place] [address] Glucose [Mass/Vol] 186 mg/dL High 74-99 [facility] Comment on above: Performed By: #### 2 4320-2 #### TD PERALTA ([id number]) [facility] [address] [place] [address] Potassium [Moles/Vol] 4.2 mmol/L Normal 3.5-5.3 [facility] Comment on above: Performed By: #### 2 4321-2 #### TD PERALTA ([id number]) [facility] ([facility]) [address] [place] [address] Sodium [Moles/Vol] 141 mmol/L Normal 136-145 [facility] Comment on above: Performed By: #### 2 4321-2 #### TD PERALTA ([id number]) [facility] ([facility]) [address] [place] [address] Urea nitrogen [Mass/Vol] 22 mg/dL Normal 6-23 [facility] Comment on above: Performed By: #### 2 4321-2 #### TD PERALTA ([id number]) [facility] ([facility]) [address] [place] [address] CBC panel Auto (Bld)on 08-09 Erythrocyte distribution width (RBC) [Ratio] 14.2 % Normal 11.5-14.5 [facility] Comment on above: Performed By: #### 5 8410-2 #### TD PERALTA ([id number]) [facility] ([facility]) [address] [place] [address] Hematocrit (Bld) [Volume fraction] 43.9 % Normal 41.0-52.0 [facility] Comment on above: Performed By: #### 5 8410-2 #### TD PERALTA ([id number]) [facility] ([facility]) [address] [place] [address] Hemoglobin (Bld) [Mass/Vol] 15.2 g/dL Normal 13.5-17.5 [facility] Comment on above: Performed By: #### 5 8410-2 #### TD PERALTA ([id number]) [facility] ([facility]) [address] [place] [address] MCH (RBC) [Entitic mass] 33.6 pg Normal 26.0-34.0 [facility] Comment on above: Performed By: #### 5 8410-2 #### DT PERALTA ([id number]) [facility] ([facility]) [address] [place] [address] MCHC (RBC) [Mass/Vol] 34.6 g/dL Normal 32.0-36.0 [facility] Comment on above: Performed By: #### 5 8410-2 #### TD PERALTA ([id number]) [facility]) [address] [place] [address] MCV (RBC) [Entitic vol] 97 fL Normal 80-100 [facility] Comment on above: Performed By: #### 5 8410-2 #### TD PERALTA ([id number]) [facility]) [address] [place] [address] Nucleated RBC/100 WBC (Bld) [Ratio] 0.0 /100 WBCs Normal 0.0-0.0 [facility] Comment on above: Performed By: #### 5 8410-2 #### TD PERALTA ([id number]) [facility] ([facility]) [address] [place] [address] Platelets (Bld) [#/Vol] 178 x10*3/uL Normal 150-450 [facility] Comment on above: Performed By: #### 5 8410-2 #### TD PERALTA ([id number]) [facility] ([facility]) [address] [place] [address] RBC (Bld) [#/Vol] 4.52 x10*6/uL Normal 4.50-5.90 [facility] Comment on above: Performed By: #### 5 8410-2 #### TD PERALTA ([id number]) [facility]) [address] [place] [address] WBC (Bld) [#/Vol] 6.8 x10*3/uL Normal 4.4-11.3 [facility] Comment on above: Performed By: #### 5 8410-2 #### TD PERALTA ([id number]) [facility] ([facility]) [address] [place] [address] Coagulation tissue factor in ducedon 08-09-2023 PT Coag (PPP) [Time] 22.7 s High 9.8-12.8 [facility] Comment on above: Performed By: #### 5 902-2 #### TD PERALTA ([id number]) [facility] [address] [place] [address] PT Coag (PPP) [Time]on 08-09 INR Coag (PPP) [Relative time] 2.0 High 0.9-1.1 [facility] Comment on above: Performed By: #### 5 902-2 #### TD PERALTA ([id number]) [facility]) [address] [place] [address] Prothrombin Time INRon 08-03 INR Coag (PPP) [Relative time] 2.2 {INR} Acquisio [facility] [email or web address] Other Prothrombin Time INR [facility] [employer] Other ECG 12 Leadon 07-12-2023 ECG revealed atrial fibrillation and anteroseptal myocardial infarction of undetermined age [facility] Work Phone: Prothrombin Time INRon 07-06 INR Coag (PPP) [Relative time] 2.3 {INR} [facility] Other Prothrombin Time INR [facility] [employer] Other Coagulation tissue factor in ducedon 06-30-2023 PT Coag (PPP) [Time] 13.3 s High 9.8-12.8 [facility] Comment on above: Performed By: #### 5 902-2 #### TD PERALTA ([id number]) [facility]) [address] [place] [address] Glucose Test strip manual (B ld) [Mass/Vol]on 06-30-2023 Glucose [Mass/Vol] 213 mg/dL High 74-99 [facility] Comment on above: Performed By: #### 2 341-6 #### TD PERALTA ([id number]) [facility] [address] [place] [address] Glucose [Mass/Vol] 213 mg/dL High 74 - 99 mg/dL [facility] Interpretation and review of laboratory results Abnormal [facility] PT Coag (PPP) [Time]on 06-30 INR Coag (PPP) [Relative time] 1.2 High 0.9-1.1 [facility] Comment on above: Performed By: #### 5 902-2 #### TD PERALTA ([id number]) [facility]) [address] [place] [address] INR Coag (PPP) [Relative time] 1.2 {INR} High 0.9 - 1.1 [facility] Interpretation and review of laboratory results Abnormal [facility] Protime-INRon 06-30-2023 PT Coag (PPP) [Time] 13.3 s High [facility] XR CHEST 2 VIEWSon 3 XR CHEST 2 VIEWS Interpreted By: Dunia Leon, STUDY: XR CHEST 2 VIEWS; 06/30/2023 10:11 am INDICATION: Signs/Symptoms:s/p ICD insertion. COMPARISON: None. ACCESSION NUMBER(S): [id number] ORDERING CLINICIAN: LORENE VERNON FINDINGS: ICD is [...] Dunia Leon 06/30/2023 12:03 PM Dictation workstation: [id number] Normal [facility] Comment on above: Order Comment: Itzel ruffin. Discharge pending film. XR Chest 2 Viewson 3 1. No pneumothorax is noted following ICD placement MACRO: None Signed by: Dunia Leon 06/30/2023 12:03 PM Dictation workstation: [id number] MMODAL Interpreted By: Dunia Leon, STUDY: XR CHEST 2 VIEWS; 06/30/2023 10:11 am INDICATION: Signs/Symptoms:s/p ICD insertion. COMPARISON: None. ACCESSION NUMBER(S): [id number] ORDERING CLINICIAN: LORENE VERNON FINDINGS: ICD is [...] at the base of the cervical spine. MMODAL Dunia Leon MD - 06/30/2023 Interpreted By: Dunia Leon, STUDY: XR CHEST 2 VIEWS; 06/30/2023 10:11 am INDICATION: Signs/Symptoms:s/p ICD insertion. COMPARISON: None. ACCESSION NUMBER(S): [id number] ORDERING CLINICIAN: LORENE VERNON FINDINGS: ICD is [...] Dunia Leon 06/30/2023 12:03 PM Dictation workstation: [id number] [facility] Work Phone: Radiology Study observation (narrative) [facility] Work Phone: XR Chest 2 ViewsOrdered By: Dunia Leon on 06-30-2023 [facility] Work Phone: ECG 12-LEADon 06-29-2023 ECG 12-LEAD Ventricular Rate 83 Atrial Rate 79 QRS Duration 84 Q-T Interval 386 QTC Calculation(Bazett) 453 R Minden 26 T Minden 45 QRS Count 13 Q Onset 217 T Offset 410 QTC Fredericia 430 Diagnosis Atrial fibrillation Low voltage QRS Cannot rule out Anteroseptal infarct , age undetermined Abnormal ECG Confirmed by Brice Young (13) on 07/04/2023 4:22:27 PM Normal [facility] ECG 12-LEAD Ventricular Rate 95 Atrial Rate 394 QRS Duration 84 Q-T Interval 362 QTC Calculation(Bazett) 454 R Minden -8 T Minden 5 QRS Count 16 Q Onset 216 T Offset 397 QTC Fredericia 421 Diagnosis Atrial fibrillation Low voltage QRS Cannot rule out Anteroseptal infarct , age undetermined Abnormal ECG Confirmed by Brice Young (13) on 07/08/2023 5:25:44 PM Normal [facility] Glucose Test strip manual (B ld) [Mass/Vol]on 06-29-2023 Glucose [Mass/Vol] 205 mg/dL High 74-99 [facility] Comment on above: Performed By: #### 2 341-6 #### TD PERALTA ([id number]) [facility]) [address] [place] [address] Glucose [Mass/Vol] 205 mg/dL High 74 - 99 mg/dL [facility] Interpretation and review of laboratory results Abnormal [facility] Glucose [Mass/Vol] 140 mg/dL High 74-99 [facility] Comment on above: Performed By: #### 2 341-6 #### TD PERALTA ([id number]) [facility]) [address] [place] [address] Glucose [Mass/Vol] 140 mg/dL High 74 - 99 mg/dL [facility] Interpretation and review of laboratory results Abnormal [facility] PT and aPTT panel Coag (PPP) on 06-29-2023 aPTT Coag (PPP) [Time] 26 s Low 27-38 [facility] Comment on above: Order Comment: The A PTT is no longer used for monitoring Unfractionated Heparin Therapy. For monitoring Heparin Therapy, use the Heparin Assay. Performed By: #### 3 4529-8 #### TD PERALTA ([id number]) [facility] [address] [place] [address] INR Coag (PPP) [Relative time] 1.1 Normal 0.9-1.1 [facility] Comment on above: Order Comment: The A PTT is no longer used for monitoring Unfractionated Heparin Therapy. For monitoring Heparin Therapy, use the Heparin Assay. Performed By: #### 3 4529-8 #### TD PERALTA ([id number]) [facility]) [address] [place] [address] PT Coag (PPP) [Time] 12.6 s Normal 9.8-12.8 [facility] Comment on above: Order Comment: The A PTT is no longer used for monitoring Unfractionated Heparin Therapy. For monitoring Heparin Therapy, use the Heparin Assay. Performed By: #### 3 4529-8 #### TD PERALTA ([id number]) [facility]) [address] [place] [address] aPTT Coag (PPP) [Time] [address] [facility] INR Coag (PPP) [Relative time] 1.1 {INR} 0.9 - 1.1 [facility] Interpretation and review of laboratory results Abnormal [facility] PT Coag (PPP) [Time] 12.6 s [facility] The APTT is no longer used for monitoring Unfractionated Heparin Therapy. For monitoring Heparin Therapy, use the Heparin Assay. [facility] BASIC METABOLIC PANELon 05-20 Anion gap [Moles/Vol] 11 mmol/L Normal 10 - 20 [facility] Comment on above: Performed By: #### B MP #### [facility] [address] [place], [place] [id number] Calcium [Mass/Vol] 9.1 mg/dL Normal 8.6 - 10.3 [facility] Comment on above: Performed By: #### B MP #### [facility] [address] [place], [place] [id number] Chloride [Moles/Vol] 102 mmol/L Normal 98 - 107 [facility] Comment on above: Performed By: #### B MP #### [address] [id number] Creatinine [Mass/Vol] 1.03 mg/dL Normal 0.50 - 1.30 [facility] Comment on above: Performed By: #### B MP #### [address] [id number] GFR/1.73 sq M.predicted among non-blacks MDRD (S/P/Bld) [Vol rate/Area] 83 mL/min/{1.73_m2} Normal >90 [facility] Comment on above: Result Comment: CALC ULATIONS OF ESTIMATED GFR ARE PERFORMED USING THE 2020 CKD-EPI STUDY REFIT EQUATION WITHOUT THE RACE VARIABLE FOR THE IDMS-TRACEABLE CREATININE METHODS. https://jasn.asnjournals.org/content/early/ASN.1575421 988 Performed By: #### B MP #### [address] [id number] Glucose [Mass/Vol] 97 mg/dL Normal 74 - 99 [facility] Comment on above: Performed By: #### B MP #### [address] [id number] HCO3 (Bld) [Moles/Vol] 32 mmol/L Normal 21 - 32 [facility] Comment on above: Performed By: #### B MP #### [address] [id number] Potassium [Moles/Vol] 3.8 mmol/L Normal 3.5 - 5.3 [facility] Comment on above: Performed By: #### B MP #### [address] [id number] Sodium [Moles/Vol] 141 mmol/L Normal 136 - 145 [facility] Comment on above: Performed By: #### B MP #### [address] [id number] Urea nitrogen [Mass/Vol] 16 mg/dL Normal 6 - 23 [facility] Comment on above: Performed By: #### B MP #### [address] [id number] CBCon 06-07-2023 Erythrocyte distribution width (RBC) [Ratio] 13.9 % Normal 11.5 - 14.5 [facility] Comment on above: Performed By: #### C BC #### [address] [id number] Hematocrit (Bld) [Volume fraction] 44.5 % Normal 41.0 - 52.0 [facility] Comment on above: Performed By: #### C BC #### [address] [id number] Hemoglobin (Bld) [Mass/Vol] 15.1 g/dL Normal 13.5 - 17.5 [facility] Comment on above: Performed By: #### C BC #### [address] [id number] MCHC (RBC) [Mass/Vol] 33.9 g/dL Normal 32.0 - 36.0 [facility] Comment on above: Performed By: #### C BC #### [address] [id number] MCV (RBC) [Entitic vol] 95 fL Normal 80 - 100 [facility] Comment on above: Performed By: #### C BC #### [address] [id number] Platelets (Bld) [#/Vol] 184 10*3/uL Normal 150 - 450 [facility] Comment on above: Performed By: #### C BC #### [address] [id number] RBC 4.68 x10E12/L Normal 4.50 - 5.90 [facility] Comment on above: Performed By: #### C BC #### [address] [id number] WBC (Bld) [#/Vol] 8.1 10*3/uL Normal 4.4 - 11.3 [facility] Comment on above: Performed By: #### C BC #### [address] [id number] PT/INRon 06-07-2023 PT Coag (PPP) [Time] 33.5 s High 9.8 - 12.8 [facility] Comment on above: Result Comment: Note new reference range as of 03/08/2023 at 10:00am. Performed By: #### P TINR #### [address] [id number] PT, INR 2.9 High 0.9 - 1.1 [facility] Comment on above: Performed By: #### P TINR #### [address] [id number] Prothrombin Time INRon 06-06 INR Coag (PPP) [Relative time] 2.3 {INR} [facility] Other Prothrombin Time INR [facility] Other Prothrombin Time INRon 05-25 INR Coag (PPP) [Relative time] 2.4 {INR} [employer] Other Prothrombin Time INR [employer] Other Office Visit (Cardiology)on 05-24-2023 Follow-up visit Diagnoses/Problems Assessed Ventricular tachycardia, nonsustained (427.1) (I47.29) Paroxysmal atrial fibrillation (427.31) (I48.0) Hyperlipidemia (272.4) (E78.5) Diabetes mellitus (250.00) (E11.9) Essential hypertension (401.9) (I10) Ischemic cardiomyopathy (414.8) (I25.5) Pulmonary embolus (415.19) (I26.99) 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 (414.01) (I25.10) Class 2 obesity with body mass index (BMI) of 37.0 to 37.9 in adult (278.00,V85.37) (E66.9,Z68.37) Orders Class 2 obesity with body mass index (BMI) of 37.0 to 37.9 in adult Basic Metabolic Panel; Status:Active; Requested for:24May2023; Complete Blood Count; Status:Active; Requested for:24May2023; IO EKG Electrocardiogram- 12 Lead; Status:Complete; Done: 24May2023 PT/INR; Status:Active; Requested for:24May2023; Chief Complaint HARRIETT THAKKAR is being seen for a consultation for atrial fibrillation and ICD eval. Active Problems Problems Abnormal EKG (794.31) (R94.31) Anticoagulated (V58.61) (Z79.01) Chest pain (786.50) (R07.9) Class 2 obesity with body mass index (BMI) of 37.0 to 37.9 in adult (278.00,V85.37) (E66.9,Z68.37) 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 (414.01) (I25.10) Diabetes mellitus (250.00) (E11.9) Essential hypertension (401.9) (I10) High risk medication use (V58.69) (Z79.899) History of NV (myocardial infarction) (412) (I25.2) History of PTCA (V45.82) (Z98.61) Hyperlipidemia (272.4) (E78.5) Ischemic cardiomyopathy (414.8) (I25.5) Never a smoker Orthostatic hypotension (458.0) (I95.1) Paroxysmal atrial fibrillation (427.31) (I48.0) Pulmonary embolus (415.19) (I26.99) Sleep apnea (780.57) (G47.30) Syncope, near (780.2) (R55) Ventricular tachycardia, nonsustained (427.1) (I47.29) Surgical History Problems History of Cardiac catheterization with stent placement History of Colonoscopy [id number] History of Neck surgery disectomy History of [...] 5 MG Oral TabletTake as directed by [facility] coumadin clinic Allergies Medication PAULETTE Inhibitors Hypotension;; [...] consumption Vitals Vital Signs Recorded: 24May2023 02:10PMRecorded: [id number] 02:04PM Heart Yrto396 Ivjjmiqz946, LUE, Sitting Nwaikbjpr98, LUE, Sitting Height6 ft 3 in Fubefm788 lb BMI Vsulorjvwe22.62 kg/m2 BSA Calculated2.64 O2 Hhawwvkgmz08 Physical Exam Constitutional: Well developed, awake/alert/oriented x3, no distress Head/Neck: Neck supple, No JVD, no bruits Respiratory: Patent airways, CTAB, normal breath sounds with good chest expansion Cardiovascular: Regular, rate and rhythm, no murmurs, normal S1 and S2 Extremities: normal extremities, no cyanosis edema Neurological: alert and oriented x3 Scores and Scales [id number] 1. Heart Failure or EF less than or equal to 35%? Yes (1 pt) 2. Hypertension? Yes (1 pt) 3. Age? Less than 65 (0 pt) 4. Diabetes? Yes (1 pt) 5. Stroke, TIA, or Systemic Emboli? No (0 pt) 6. Vascular Disease? Yes (1 pt) 7. Gender? Male (0 pt) Total Risk Score: The [id number] Score is 4 which corresponds to High Risk. Impressions 58-year-old man with history of sleep apnea (intolerant of CPAP), morbid obesity, HTN, diabetes, hyperlipidemia, CAD s/p PCI x2 (LAD 2020 repeat PCI later in 2019 ISR), h/o PE (>5 years ago), paroxysmal atrial fibrillation b (more content not included)... Normal [employer] Prothrombin Time INRon 05-12 INR Coag (PPP) [Relative time] 3.6 {INR} [facility] [email or web address] Other Prothrombin Time INR Nort [employer] Other [facility] CARDIAC STRESS/REST INJE CTIONon 05-02-2023 [facility] CARDIAC STRESS/REST INJECTION Patient Name: HARRIETT THAKKAR STUDY: MYOCARDIAL PERFUSION STRESS TEST WITH LEXISCAN Performing facility: [facility], [address] [place] [address], [address], [address] Provider: Angel Griggs MD, [facility] PCP: Dr. Molly Garcia Supervising provider: Dallas Em MD INDICATION: Chest Pain; CAD; Diabetes HTN Hyperlipidemia Ischemic cardiomyopathy HISTORY: Gender: M; Age: 58 y/o ; Height: 187.96 cm; Weight: 795.4231841 kg. CAD; High Cholesterol; Diabetes; Previous NV; HTN; Arrhythmias; Chest Pain; Denies smoking. Cardiac catheterization on 2019. PTCA on 2019. COMPARISON: Previous nuclear testing completed [id number] at [facility]. ACCESSION NUMBER(S): [id number]; [id number]; [id number] ORDERING CLINICIAN: ANGEL GRIGGS TECHNIQUE: TWO DAY [...] Electronically signed by: ANGEL GRIGGS MD Normal [facility] Prothrombin Time INRon 05-02 INR Coag (PPP) [Relative time] 3.7 {INR} [facility] [email or web address] Other Prothrombin Time INR Normal [facility] [email or web address] Other A1C with Estimated Average G luon 04-04-2023 Glucose [Mass/Vol] 169 mg/dL Normal [facility] Comment on above: Order Comment: Comme nt add on please Result Comment: PERF ORMED BY: [facility] [address] [place] [address] PATHOLOGIST ARTIST RELATIONSHIP MANAGER MELANI GUTIÉRREZ M.D. Performed By: #### G LULS #### Point of Care testing , HbA1c (Bld) [Mass fraction] 7.5 % High 4.3-5.6 [facility] Comment on above: Order Comment: Comme nt add on please Result Comment: Incr eased risk for diabetes: 5.7 - 6.4 diabetes: >6.4 glycemic control for adults with diabetes: <7.0 Performed By: #### G LULS #### Point of Care testing , Alanine aminotransferase [En zymatic activity/volume] in Serum or PlasmaOrdered By: Toy Yeager on 04-04-2023 ALT [Catalytic activity/Vol] 26 U/L 7-52 [facility] Albumin [Mass/volume] in Ser um or Plasma by Bromocresol green (BCG) dye binding methoOrdered By: Toy Yeager on 04-04-2023 Albumin BCG dye [Mass/Vol] 3.7 g/dL 3.5-5.7 [facility] Alkaline phosphatase [Enzyma tic activity/volume] in Serum or PlasmaOrdered By: Toy Yeager on 04-04-2023 ALP [Catalytic activity/Vol] 72 U/L 34-104 [facility] Aspartate aminotransferase [ Enzymatic activity/volume] in Serum or PlasmaOrdered By: Toy Yeager on 04-04-2023 AST [Catalytic activity/Vol] 21 U/L 13-39 [facility] Basophils Auto (Bld) [#/Vol] Ordered By: Toy Yeager on 04-04-2023 Basophils (Bld) [#/Vol] 0.0 10*3/uL 0.0-0.2 [facility] Basophils/100 WBC Auto (Bld) Ordered By: Toyeva Yeager on 04-04-2023 Basophils/100 WBC (Bld) 0.7 % . [facility] Bilirubin.total [Mass/volume ] in Serum or PlasmaOrdered By: Toy Yeager on 04-04-2023 Bilirubin [Mass/Vol] 0.7 mg/dL 0.3-1.0 [facility] Calcium [Mass/volume] in Ser um or PlasmaOrdered By: Toy Yeager on 04-04-2023 Calcium [Mass/Vol] 7.8 mg/dL 8.6-10.3 [facility] Carbon dioxide, total [Moles /volume] in Serum or PlasmaOrdered By: Toy Yeager on 04-04-2023 CO2 [Moles/Vol] 31.7 mmol/L 21.0-31.0 [facility] Chloride [Moles/volume] in S suad or PlasmaOrdered By: Toy Yeager on 04-04-2023 Chloride [Moles/Vol] 102 mmol/L 98-107 [facility] Complete Blood Count Auto Di ffon 04-04-2023 Basophils (Bld) [#/Vol] 0.0 10*3/uL Normal 0.0-0.2 [facility] Comment on above: Result Comment: PERF ORMED BY: [place] [address] PATHOLOGIST ARTIST RELATIONSHIP MANAGER MELANI GUTIÉRREZ M.D. Performed By: #### P T, CBC #### [address] Basophils/100 WBC (Bld) 0.7 % Normal . [facility] Comment on above: Performed By: #### P T, CBC #### [address] Eosinophils (Bld) [#/Vol] 0.2 10*3/uL Normal 0.0-0.45 [facility] Comment on above: Performed By: #### P T, CBC #### [address] Eosinophils/100 WBC (Bld) 3.1 % Normal . [facility] Comment on above: Performed By: #### P T, CBC #### [address] Erythrocyte distribution width (RBC) [Ratio] 14.2 % Normal 12.0-14.8 [facility] Comment on above: Performed By: #### P T, CBC #### [address] Hematocrit (Bld) [Volume fraction] 41.1 % Normal 38.8-50.0 [facility] Comment on above: Performed By: #### P T, CBC #### [facility] [address] Hemoglobin (Bld) [Mass/Vol] 14.4 g/dL Normal 13.0-17.0 [facility] Comment on above: Performed By: #### P T, CBC #### [facility] [address] Lymphocytes (Bld) [#/Vol] 1.3 10*3/uL Normal 1.00-4.8 [facility] Comment on above: Performed By: #### P T, CBC #### [facility] [address] Lymphocytes/100 WBC (Bld) 20.2 % Normal . [facility] Comment on above: Performed By: #### P T, CBC #### [facility] [address] [place] [address] MCH (RBC) [Entitic mass] 31.8 pg Normal 27.5-35.2 [facility] Comment on above: Performed By: #### P T, CBC #### [facility] [address] MCV (RBC) [Entitic vol] 90.9 fL Normal 83.5-101 [facility] Comment on above: Performed By: #### P T, CBC #### [facility] [address] Mean Corpuscular HGB Conc 35.0 g/dL Normal 32.5-35.6 [facility] Comment on above: Performed By: #### P T, CBC #### [facility] [address] [place] [address] [place] Monocytes (Bld) [#/Vol] 0.6 10*3/uL Normal 0.0-0.8 [facility] Comment on above: Performed By: #### P T, CBC #### [facility] [address] Monocytes/100 WBC (Bld) 9.8 % Normal . [facility] Comment on above: Performed By: #### P T, CBC #### [facility] [address] Neutrophils (Bld) [#/Vol] 4.1 10*3/uL Normal 1.8-7.7 [facility] Comment on above: Performed By: #### P T, CBC #### [facility] [address] Neutrophils/100 WBC (Bld) 66.2 % Normal . [facility] Comment on above: Performed By: #### P T, CBC #### [facility] [address] NRBC% 0.1 /100{WBC} Normal 0-0.5 [facility] Comment on above: Performed By: #### P T, CBC #### [facility] [address] Platelet mean volume (Bld) [Entitic vol] 9.5 fL Normal 6.6-10.1 [facility] Comment on above: Performed By: #### P T, CBC #### [facility] [address] Platelets (Bld) [#/Vol] 129 10*3/uL Low 150-450 [facility] Comment on above: Performed By: #### P T, CBC #### [facility] [address] RBC (Bld) [#/Vol] 4.52 10*6/uL Normal 3.90-5.60 [facility] Comment on above: Performed By: #### P T, CBC #### [facility] [address] WBC (Bld) [#/Vol] 6.2 10*3/uL Normal 4.1-10.5 [facility] Comment on above: Performed By: #### P T, CBC #### [facility] [address] Comprehensive Metabolic Pane lindy 04-04-2023 Albumin [Mass/Vol] 3.7 g/dL Normal 3.5-5.7 [facility] Comment on above: Performed By: #### L IPID, CBC, PT, CMP #### [facility] [address] Albumin/Globulin [Mass ratio] 1.6 {ratio} Normal [facility] Comment on above: Performed By: #### L IPID, CBC, PT, CMP #### [facility] [address] ALP [Catalytic activity/Vol] 72 U/L Normal 34-104 [facility] Comment on above: Performed By: #### L IPID, CBC, PT, CMP #### [address] ALT [Catalytic activity/Vol] 26 U/L Normal 7-52 [facility] Comment on above: Performed By: #### L IPID, CBC, PT, CMP #### [address] Anion gap [Moles/Vol] 8.9 mmol/L Normal 6.0-15.0 [facility] Comment on above: Performed By: #### L IPID, CBC, PT, CMP #### [address] AST [Catalytic activity/Vol] 21 U/L Normal 13-39 [facility] Comment on above: Performed By: #### L IPID, CBC, PT, CMP #### [address] Bilirubin [Mass/Vol] 0.7 mg/dL Normal 0.3-1.0 [facility] Comment on above: Performed By: #### L IPID, CBC, PT, CMP #### [facility] [address] Calcium [Mass/Vol] 7.8 mg/dL Low 8.6-10.3 [facility] Comment on above: Performed By: #### L IPID, CBC, PT, CMP #### [address] [place] [address] [place] Chloride [Moles/Vol] 102 mmol/L Normal 98-107 [facility] Comment on above: Performed By: #### L IPID, CBC, PT, CMP #### [address] CO2 [Moles/Vol] 31.7 mmol/L High 21.0-31.0 [facility] Comment on above: Performed By: #### L IPID, CBC, PT, CMP #### [address] Creatinine [Mass/Vol] 1.05 mg/dL Normal 0.70-1.30 [facility] Comment on above: Performed By: #### L IPID, CBC, PT, CMP #### [address] Creatinine Clr Calc Pharmacy 107.85 Normal [facility] Comment on above: Result Comment: PERF ORMED BY: [place] [address] PATHOLOGIST ARTIST RELATIONSHIP MANAGER MELANI GUTIÉRREZ M.D. Performed By: #### L IPID, CBC, PT, CMP #### [address] GFR/1.73 sq M.predicted MDRD (S/P/Bld) [Vol rate/Area] mL/min/{1.73_m2} [facility] Comment on above: Performed By: #### L IPID, CBC, PT, CMP #### [facility] [address] [place] [address] [place] Globulin (S) [Mass/Vol] 2.3 g/dL [facility] Comment on above: Performed By: #### L IPID, CBC, PT, CMP #### [facility] [address] [place] [address] Glucose [Mass/Vol] 161 mg/dL High 70-100 [facility] Comment on above: Result Comment: [facility] Glucose Reference Range is dependent on time and content of last meal. Glucose of more than 200 mg/dL in a nonstressed, ambulatory subject supports the diagnosis of Diabetes Mellitus. ADA recommended reference range Performed By: #### L IPID, CBC, PT, CMP #### [facility] [address] [place] [address] Potassium [Moles/Vol] 3.6 mmol/L Normal 3.5-5.1 [facility] Comment on above: Performed By: #### L IPID, CBC, PT, CMP #### [place] [address] [place] Protein [Mass/Vol] 6.0 g/dL Low 6.4-8.9 [facility] Comment on above: Performed By: #### L IPID, CBC, PT, CMP #### [address] Sodium [Moles/Vol] 139 mmol/L Normal 136-145 [facility] Comment on above: Performed By: #### L IPID, CBC, PT, CMP #### [place] [address] [place] Urea nitrogen [Mass/Vol] 23 mg/dL Normal 7-25 [facility] Comment on above: Performed By: #### L IPID, CBC, PT, CMP #### [address] Creatinine [Mass/volume] in Serum or PlasmaOrdered By: Toy Yeager on 04-04-2023 Creatinine [Mass/Vol] 1.05 mg/dL 0.70-1.30 [facility] ECH echo transthoracicon [facility] echo transthoracic [facility] [place] [address] Echocardiogram Signed Patient: Harriett Thakkar MR#: [id number] 285 : 1965 Acct:[id number] Age/Sex: 58 / M ADM Date: 04/02/23 Loc: Room: [address] [place] [address] Type: ADM INOo Attending Dr: Derrek Tay DO Ordering Provider: Toy Yeager MD Date of Service: 04/03/23 [facility] echo transthoracic: Chest pain r/o Hypokinesis Copies to: Angel Griggs MD, [facility] Toy Yeager MD Weight: 290 lb Performed [...] mmHg Transcribed By: SCV Performed At: 04/04/23 5133 Signed By: Angel Griggs MD, FACC 04/04/23 1754 [facility] Eosinophils Auto (Bld) [#/Vo l]Ordered By: Toy Yeager on 04-04-2023 Eosinophils (Bld) [#/Vol] 0.2 10*3/uL 0.0-0.45 [facility] Eosinophils/100 WBC Auto (Bl d)Ordered By: Toy Yeager on 04-04-2023 Eosinophils/100 WBC (Bld) 3.1 % . [facility] Erythrocyte distribution wid th Auto (RBC) [Ratio]Ordered By: Toy Yeager on 04-04-2023 Erythrocyte distribution width (RBC) [Ratio] 14.2 % 12.0-14.8 [facility] Globulin Calc (S) [Mass/Vol] Ordered By: Toy Yeager on 04-04-2023 Globulin (S) [Mass/Vol] 2.3 g/dL [facility] Glucose Glucometer (BldC) [M ass/Vol]Ordered By: Toy Yeager on 04-04-2023 Glucose [Mass/Vol] 146 mg/dL [facility] Comment on above: Random Glucose Refer ence Range is dependent on time and content of last meal. Glucose of more than 200 mg/dL in a nonstressed, ambulatory subject supports the diagnosis of Diabetes Mellitus. Glucose Poct Glucometerson 0 04-04-2023 Glucose [Mass/Vol] 146 mg/dL Normal [facility] Comment on above: Result Comment: [place] Glucose Reference Range is dependent on time and content of last meal. Glucose of more than 200 mg/dL in a nonstressed, ambulatory subject supports the diagnosis of Diabetes Mellitus. PERFORMED BY: [facility] [address] [place] [address] PATHOLOGIST ARTIST RELATIONSHIP MANAGER MELANI GUTIÉRREZ M.D. Performed By: #### G LUYASEMIN #### Point of Care testing , Glucose [Mass/volume] in Ser um or PlasmaOrdered By: Toy Yeager on 04-04-2023 Glucose [Mass/Vol] 161 mg/dL 70-100 [facility] Comment on above: ADA recommended refe [...] from glycated hemoglobin (Bld) [Mass/Vol] 169 mg/dL [facility] Hematocrit Auto (Bld) [Volum e fraction]Ordered By: Toy Yeager on 04-04-2023 Hematocrit (Bld) [Volume fraction] 41.1 % 38.8-50.0 [facility] Hemoglobin A1c percentageOrd ered By: Derrek Tay on 04-04-2023 HbA1c (Bld) [Mass fraction] 7.5 % 4.3-5.6 [facility] Comment on above: Increased risk for d iabetes: 5.7 - 6.4diabetes: >6.4glycemic control for adults with diabetes: <7.0 Hemoglobin [Mass/volume] in BloodOrdered By: Toy Yeager on 04-04-2023 Hemoglobin (Bld) [Mass/Vol] 14.4 g/dL 13.0-17.0 [facility] Laboratory - CoagulationOrde red By: Toy Yeager on 04-04-2023 PT Coag (PPP) [Time] 39.6 s 9.0-12.9 [facility] Leukocytes [#/volume] correc kaylee for nucleated erythrocytes in Blood by Automated counOrdered By: Toy Yeager on 04-04-2023 WBC corrected for nucl RBC Auto (Bld) [#/Vol] 6.2 10*3/uL 4.1-10.5 [facility] Lymphocytes Auto (Bld) [#/Vo l]Ordered By: Toy Yeager on 04-04-2023 Lymphocytes (Bld) [#/Vol] 1.3 10*3/uL 1.00-4.8 [facility] Lymphocytes/100 WBC Auto (Bl d)Ordered By: Toy Yeager on 04-04-2023 Lymphocytes/100 WBC (Bld) 20.2 % . [facility] MCH Auto (RBC) [Entitic mass ]Ordered By: Toy Yeager on 04-04-2023 MCH (RBC) [Entitic mass] 31.8 pg 27.5-35.2 [facility] MCHC Auto (RBC) [Mass/Vol]Or dered By: Toy Yeager on 04-04-2023 MCHC (RBC) [Mass/Vol] 35.0 g/dL 32.5-35.6 [facility] MCV Auto (RBC) [Entitic vol] Ordered By: Toy Yeager on 04-04-2023 MCV (RBC) [Entitic vol] 90.9 fL 83.5-101 [facility] Monocytes Auto (Bld) [#/Vol] Ordered By: Toy Yeager on 04-04-2023 Monocytes (Bld) [#/Vol] 0.6 10*3/uL 0.0-0.8 [facility] Monocytes/100 WBC Auto (Bld) Ordered By: Toy Yeager on 04-04-2023 Monocytes/100 WBC (Bld) 9.8 % . [facility] Neutrophils Auto (Bld) [#/Vo l]Ordered By: Toy Yeager on 04-04-2023 Neutrophils (Bld) [#/Vol] 4.1 10*3/uL 1.8-7.7 [facility] Neutrophils/100 WBC Auto (Bl d)Ordered By: Toy Yeager on 04-04-2023 Neutrophils/100 WBC (Bld) 66.2 % . [facility] No Panel InformationOrdered By: Toy Yeager on 04-04-2023 Estimated GFR (CKD-EPI) > 60.0 mL/Min [facility] Creatinine Clearance (Chem 107.85 [facility] Nucleated erythrocytes [Pres ence] in Blood by Automated countOrdered By: Toy Yeager on 04-04-2023 Nucleated RBC Auto Ql (Bld) 0.1 /100{WBC} 0-0.5 [facility] Platelet mean volume Auto (B ld) [Entitic vol]Ordered By: Toy Yeager on 04-04-2023 Platelet mean volume (Bld) [Entitic vol] 9.5 fL 6.6-10.1 [facility] Platelet poor plasma interna tional normalized ratio (INR) by coagulation assay (relatOrdered By: Toy Yeager on 04-04-2023 INR Coag (PPP) [Relative time] 3.5 {INR} [facility] Comment on above: INR Therapeutic Rang e [...] 04-04-2023 Platelets (Bld) [#/Vol] 129 10*3/uL 150-450 [facility] Potassium [Moles/volume] in Serum or PlasmaOrdered By: Toy Yeager on 04-04-2023 Potassium [Moles/Vol] 3.6 mmol/L 3.5-5.1 [facility] Protein [Mass/volume] in Ser um or PlasmaOrdered By: Toy Yeager on 04-04-2023 Protein [Mass/Vol] 6.0 g/dL 6.4-8.9 [facility] Prothrombin Time INRon 04-04 INR Coag (PPP) [Relative time] 3.5 {INR} Normal [facility] Comment on above: Result Comment: INR Therapeutic [...] heart valves: 3 - 4.5 PERFORMED BY: [place] [address] PATHOLOGIST ARTIST RELATIONSHIP MANAGER MELANI GUTIÉRREZ M.D. Performed By: #### P T, CBC #### [address] PT Coag (PPP) [Time] 39.6 s High 9.0-12.9 [facility] Comment on above: Performed By: #### P T, CBC #### [address] RBC Auto (Bld) [#/Vol]Ordere d By: Toy Yeager on 04-04-2023 RBC (Bld) [#/Vol] 4.52 10*6/uL 3.90-5.60 [facility] Serum or plasma albumin/glob ulin mass ratioOrdered By: Toy Yeager on 04-04-2023 Albumin/Globulin [Mass ratio] 1.6 {ratio} [facility] Serum or plasma anion gap de terminationOrdered By: Toy Yeager on 04-04-2023 Anion gap [Moles/Vol] 8.9 mmol/L 6.0-15.0 [facility] Sodium [Moles/volume] in Ser um or PlasmaOrdered By: Toy Yeaegr on 04-04-2023 Sodium [Moles/Vol] 139 mmol/L 136-145 [facility] US carotid doppler BIon 03-19 US carotid doppler BI [facility] [place] [address] [place] [address] Ultrasound Report Signed Patient: Harriett Thakkar MR#: [id number] : 1965 Acct:[id number] Age/Sex: 58 / M ADM Date: 04/02/23 Loc: Room: [address] [place] [address] Type: ADM INOo Attending Dr: Derrek Tay DO Ordering Provider: Dallas Em MD Date of Service: 04/03/23 US/US carotid doppler BI: [facility] Copies to: MD Derrek Adna DO CAROTID DUPLEX INDICATION: Vertigo PROCEDURE: Color-flow [...] Michele Dennis M.D.04/04/2023 4:04 PM Dictation Location: [facility] Tech: Bhakti Kay Transcribed By: HEATHER 04/04/231603 Dictated By: Michele Dennis MD 04/04/231603 Signed By: 04/04/23 160 [facility] Urea nitrogen [Mass/volume] in Serum or PlasmaOrdered By: Toy Yeager on 04-04-2023 Urea nitrogen [Mass/Vol] 23 mg/dL 7-25 [facility] WBC Auto (Bld) [#/Vol]Ordere d By: Toy Yeager on 04-04-2023 WBC (Bld) [#/Vol] 6.2 10*3/uL 4.1-10.5 [facility] Cholesterol [Mass/volume] in Serum or PlasmaOrdered By: Toy Yeager on 04-03-2023 Cholesterol [Mass/Vol] 69 mg/dL 140-200 [facility] Comment on above: Chol less than 200 m g/dl low riskChol 201-239 mg/dl borderline riskChol 240 mg/dl and greater high risk Cholesterol in LDL Calc [Mas s/Vol]Ordered By: Toy Yeager on 04-03-2023 Cholesterol in LDL [Mass/Vol] 17 mg/dL 0-100 [facility] Comment on above: LDL ATP III CLASSIFI CATIONLDL less than 100 mg/dL OptimalLDL 100-129 mg/dL Near or above optimalLDL 130-159 mg/dL Borderline highLDL 160-189 mg/dL HighLDL greater than 189 mg/dL Very high Cholesterol in VLDL Calc [Ma ss/Vol]Ordered By: Toy Yeager on 04-03-2023 Cholesterol in VLDL [Mass/Vol] 36 mg/dL [facility] Complete Blood Count Auto Di ffon 04-03-2023 Basophils (Bld) [#/Vol] 0.1 10*3/uL Normal 0.0-0.2 [facility] Comment on above: Result Comment: PERF ORMED BY: [address] [place] [address] PATHOLOGIST ARTIST RELATIONSHIP MANAGER MELANI GUTIÉRREZ M.D. Performed By: #### L IPID, CBC, PT, CMP #### [facility] [address] [place] [address] [place] Basophils/100 WBC (Bld) 1.0 % Normal . [facility] Comment on above: Performed By: #### L IPID, CBC, PT, CMP #### [facility] [address] [place] [address] [place] Eosinophils (Bld) [#/Vol] 0.2 10*3/uL Normal 0.0-0.45 [facility] Comment on above: Performed By: #### L IPID, CBC, PT, CMP #### [address] Eosinophils/100 WBC (Bld) 3.5 % Normal . [facility] Comment on above: Performed By: #### L IPID, CBC, PT, CMP #### [address] Erythrocyte distribution width (RBC) [Ratio] 14.5 % Normal 12.0-14.8 [facility] Comment on above: Performed By: #### L IPID, CBC, PT, CMP #### [address] Hematocrit (Bld) [Volume fraction] 39.0 % Normal 38.8-50.0 [facility] Comment on above: Performed By: #### L IPID, CBC, PT, CMP #### [address] Hemoglobin (Bld) [Mass/Vol] 13.8 g/dL Normal 13.0-17.0 [facility] Comment on above: Performed By: #### L IPID, CBC, PT, CMP #### [address] Lymphocytes (Bld) [#/Vol] 1.6 10*3/uL Normal 1.00-4.8 [facility] Comment on above: Performed By: #### L IPID, CBC, PT, CMP #### [address] Lymphocytes/100 WBC (Bld) 23.7 % Normal . [facility] Comment on above: Performed By: #### L IPID, CBC, PT, CMP #### [address] MCH (RBC) [Entitic mass] 31.8 pg Normal 27.5-35.2 [facility] Comment on above: Performed By: #### L IPID, CBC, PT, CMP #### [facility] [address] MCV (RBC) [Entitic vol] 90.0 fL Normal 83.5-101 [facility] Comment on above: Performed By: #### L IPID, CBC, PT, CMP #### [facility] [address] Mean Corpuscular HGB Conc 35.4 g/dL Normal 32.5-35.6 [facility] Comment on above: Performed By: #### L IPID, CBC, PT, CMP #### [address] Monocytes (Bld) [#/Vol] 0.7 10*3/uL Normal 0.0-0.8 [facility] Comment on above: Performed By: #### L IPID, CBC, PT, CMP #### [address] Monocytes/100 WBC (Bld) 9.9 % Normal . [facility] Comment on above: Performed By: #### L IPID, CBC, PT, CMP #### [place] [address] [place] Neutrophils (Bld) [#/Vol] 4.3 10*3/uL Normal 1.8-7.7 [facility] Comment on above: Performed By: #### L IPID, CBC, PT, CMP #### [address] Neutrophils/100 WBC (Bld) 61.9 % Normal . [facility] Comment on above: Performed By: #### L IPID, CBC, PT, CMP #### [facility] [address] [place] [address] [place] NRBC% 0.2 /100{WBC} Normal 0-0.5 [facility] Comment on above: Performed By: #### L IPID, CBC, PT, CMP #### [address] Platelet mean volume (Bld) [Entitic vol] 9.6 fL Normal 6.6-10.1 [facility] Comment on above: Performed By: #### L IPID, CBC, PT, CMP #### [facility] [address] [place] [address] Platelets (Bld) [#/Vol] 132 10*3/uL Low 150-450 [facility] Comment on above: Performed By: #### L IPID, CBC, PT, CMP #### [facility] [address] [place] [address] RBC (Bld) [#/Vol] 4.34 10*6/uL Normal 3.90-5.60 [facility] Comment on above: Performed By: #### L IPID, CBC, PT, CMP #### [address] WBC (Bld) [#/Vol] 6.9 10*3/uL Normal 4.1-10.5 [facility] Comment on above: Performed By: #### L IPID, CBC, PT, CMP #### [address] Comprehensive Metabolic Pane lindy 04-03-2023 Albumin [Mass/Vol] 3.6 g/dL Normal 3.5-5.7 [facility] Comment on above: Performed By: #### L IPID, CBC, PT, CMP #### [address] Albumin/Globulin [Mass ratio] 1.6 {ratio} Normal [facility] Comment on above: Performed By: #### L IPID, CBC, PT, CMP #### [address] ALP [Catalytic activity/Vol] 73 U/L Normal 34-104 [facility] Comment on above: Performed By: #### L IPID, CBC, PT, CMP #### [facility] [address] [place] [address] ALT [Catalytic activity/Vol] 24 U/L Normal 7-52 [facility] Comment on above: Performed By: #### L IPID, CBC, PT, CMP #### [facility] [address] Anion gap [Moles/Vol] 10.9 mmol/L Normal 6.0-15.0 [facility] Comment on above: Performed By: #### L IPID, CBC, PT, CMP #### [facility] [address] AST [Catalytic activity/Vol] 23 U/L Normal 13-39 [facility] Comment on above: Performed By: #### L IPID, CBC, PT, CMP #### [facility] [address] Bilirubin [Mass/Vol] 0.7 mg/dL Normal 0.3-1.0 [facility] Comment on above: Performed By: #### L IPID, CBC, PT, CMP #### [facility] [address] Calcium [Mass/Vol] 8.0 mg/dL Low 8.6-10.3 [facility] Comment on above: Performed By: #### L IPID, CBC, PT, CMP #### [facility] [address] [place] [address] [place] Chloride [Moles/Vol] 103 mmol/L Normal 98-107 [facility] Comment on above: Performed By: #### L IPID, CBC, PT, CMP #### [facility] [address] [place] [address] [place] CO2 [Moles/Vol] 27.8 mmol/L Normal 21.0-31.0 [facility] Comment on above: Performed By: #### L IPID, CBC, PT, CMP #### [facility] [address] [place] [address] [place] Creatinine [Mass/Vol] 1.05 mg/dL Normal 0.70-1.30 [facility] Comment on above: Performed By: #### L IPID, CBC, PT, CMP #### [facility] [address] [place] [address] [place] Creatinine Clr Calc Pharmacy 107.94 Normal [facility] Comment on above: Performed By: #### L IPID, CBC, PT, CMP #### [facility] [address] [place] [address] [place] GFR/1.73 sq M.predicted MDRD (S/P/Bld) [Vol rate/Area] mL/min/{1.73_m2} Normal [facility] Comment on above: Performed By: #### L IPID, CBC, PT, CMP #### [facility] [address] Globulin (S) [Mass/Vol] 2.2 g/dL Normal [facility] Comment on above: Performed By: #### L IPID, CBC, PT, CMP #### [facility] [address] Glucose [Mass/Vol] 175 mg/dL High 70-100 [facility] Comment on above: Result Comment: [facility] Glucose Reference Range is dependent on time and content of last meal. Glucose of more than 200 mg/dL in a nonstressed, ambulatory subject supports the diagnosis of Diabetes Mellitus. ADA recommended reference range Performed By: #### L IPID, CBC, PT, CMP #### [facility] [address] Potassium [Moles/Vol] 3.7 mmol/L Normal 3.5-5.1 [facility] Comment on above: Performed By: #### L IPID, CBC, PT, CMP #### [facility] [address] Protein [Mass/Vol] 5.8 g/dL Low 6.4-8.9 [facility] Comment on above: Performed By: #### L IPID, CBC, PT, CMP #### [facility] [address] Sodium [Moles/Vol] 138 mmol/L Normal 136-145 [facility] Comment on above: Performed By: #### L IPID, CBC, PT, CMP #### [facility] [address] Urea nitrogen [Mass/Vol] 28 mg/dL High 7-25 [facility] Comment on above: Performed By: #### L IPID, CBC, PT, CMP #### [facility] [address] [place] [id number] [place] Creatine Kinaseon 04-03-2023 CK [Catalytic activity/Vol] 112 U/L Normal [facility] Comment on above: Performed By: #### L IPID, CBC, PT, CMP #### [facility] [address] [place] [id number] [place] CK [Catalytic activity/Vol] 101 U/L Normal [facility] Comment on above: Performed By: #### L IPID, CBC, PT, CMP #### [facility] [address] [place] [id number] [facility] Creatine kinase [Enzymatic a ctivity/volume] in Serum or PlasmaOrdered By: Toy Yeager on 04-03-2023 CK [Catalytic activity/Vol] 112 U/L [facility] ECG 12 lead ECGon 04-03-2023 ECG 12 lead ECG [facility] [place] [address] [place] [address] Electrocardiograph Report Signed Patient: Harriett Thakkar MR#: [id number] : 1965 Acct:[id number] Age/Sex: 58 / M ADM Date: 04/02/23 Loc: Room: [address] [place] [address] Type: ADM INOo Attending Dr: Toy Yeager [...] Dallas Em MD 0 04/03/23 1049 Normal [facility] Glucose Poct Glucometerson 0 04-03-2023 Glucose [Mass/Vol] 182 mg/dL Normal [facility] Comment on above: Result Comment: [facility] Glucose Reference Range is dependent on time and content of last meal. Glucose of more than 200 mg/dL in a nonstressed, ambulatory subject supports the diagnosis of Diabetes Mellitus. PERFORMED BY: [place] [address] PATHOLOGIST ARTIST RELATIONSHIP MANAGER MELANI GUTIÉRREZ M.D. Performed By: #### G LULS #### Point of Care testing , Commemt1 Glu2: Cleaned Meter Normal [facility] Comment on above: Result Comment: PERF ORMED BY: [place] [address] PATHOLOGIST ARTIST RELATIONSHIP MANAGER MELANI GUTIÉRREZ M.D. Performed By: #### G LULS #### Point of Care testing , Glucose [Mass/Vol] 173 mg/dL Normal [facility] Comment on above: Result Comment: [facility] Glucose Reference Range is dependent on time and content of last meal. Glucose of more than 200 mg/dL in a nonstressed, ambulatory subject supports the diagnosis of Diabetes Mellitus. Performed By: #### G LULS #### Point of Care testing , Lipid Panelon 04-03-2023 Cholesterol [Mass/Vol] 69 mg/dL Low 140-200 [facility] Comment on above: Result Comment: Chol less than 200 mg/dl low risk Chol 201-239 mg/dl borderline risk Chol 240 mg/dl and greater high risk Performed By: #### L IPID, CBC, PT, CMP #### [address] Cholesterol in HDL [Mass/Vol] 16 mg/dL Low 23-92 [facility] Comment on above: Result Comment: HDL CHOL ATP-III CLASSIFICATION Cardiovascular Risk HDL > or equal to 60 mg/dL LOW HDL < 40 mg/dL HIGH Performed By: #### L IPID, CBC, PT, CMP #### [facility] [address] Cholesterol.total/Ch olesterol in HDL [Mass ratio] 4.3 {ratio} Normal <5.0 [facility] Comment on above: Result Comment: PERF ORMED BY: [place] [address] PATHOLOGIST ARTIST RELATIONSHIP MANAGER MELANI GUTIÉRREZ M.D. Performed By: #### L IPID, CBC, PT, CMP #### [address] LDL Cholesterol,Calculat ed 17 mg/dL Normal 0-100 [facility] Comment on above: Result Comment: LDL ATP III CLASSIFICATION LDL less than 100 mg/dL Optimal LDL 100-129 mg/dL Near or above optimal LDL 130-159 mg/dL Borderline high LDL 160-189 mg/dL High LDL greater than 189 mg/dL Very high Performed By: #### L IPID, CBC, PT, CMP #### [facility] [address] [place] [address] Triglyceride w/Reflex 182 mg/dL High 0-149 [facility] Comment on above: Result Comment: TRIG ATP III CLASSIFICATION TRIG less than 150 mg/dL Normal TRIG 150-199 mg/dL Borderline high TRIG 200-500 mg/dL High TRIG greater than 500 mg/dL Very high Standard traceable to the Center for Disease Conrtrol and Prevention (CDC) test method. Performed By: #### L IPID, CBC, PT, CMP #### [facility] [address] VLDL CHOLESTEROL 36 mg/dL Normal [facility] Comment on above: Performed By: #### L IPID, CBC, PT, CMP #### [facility] [address] No Panel InformationOrdered By: Toy Yeager on 04-03-2023 Bedside Glucose Comment Glu2: cleaned meter [facility] Prothrombin Time INRon 04-03 INR Coag (PPP) [Relative time] 3.3 {INR} Normal [facility] Comment on above: Result Comment: INR Therapeutic [...] heart valves: 3 - 4.5 PERFORMED BY: [place] [address] PATHOLOGIST ARTIST RELATIONSHIP MANAGER MELANI GUTIÉRREZ M.D. Performed By: #### L IPID, CBC, PT, CMP #### [facility] [address] PT Coag (PPP) [Time] 38.4 s High 9.0-12.9 [facility] Comment on above: Performed By: #### L IPID, CBC, PT, CMP #### [facility] [address] [place] [address] Serum or plasma high density lipoprotein (HDL) cholesterol measurementOrdered By: Toy Yeager on 04-03-2023 Cholesterol in HDL [Mass/Vol] 16 mg/dL 23-92 [facility] Comment on above: HDL CHOL ATP-III CLA SSIFICATION Cardiovascular RiskHDL > or equal to 60 mg/dL LOWHDL < 40 mg/dL HIGH Serum or plasma total choles terol/high density lipoprotein (HDL) cholesterol mass ratOrdered By: Toy Yeager on 04-03-2023 Cholesterol.total/Ch olesterol in HDL [Mass ratio] 4.3 {ratio} <5.0 [facility] Triglyceride [Mass/volume] i n Serum or PlasmaOrdered By: Tyo Yeager on 04-03-2023 Triglyceride [Mass/Vol] 182 mg/dL 0-149 [facility] Comment on above: TRIG ATP III CLASSIF ICATIONTRIG less than 150 mg/dL NormalTRIG 150-199 mg/dL Borderline highTRIG 200-500 mg/dL High TRIG greater than 500 mg/dL Very highStandard traceable to the Center for Disease Conrtrol and Prevention (CDC) test method. Troponin I High Sensitivityo n 04-03-2023 Troponin I High Sensitivity 7.0 pg/mL Normal 0.0-20.0 [facility] Comment on above: Result Comment: PERF ORMED BY: [place] [address] PATHOLOGIST ARTIST RELATIONSHIP MANAGER MELANI GUTIÉRREZ M.D. Performed By: #### L IPID, CBC, PT, CMP #### [facility] [address] [place] [address] Troponin I High Sensitivity 12.0 pg/mL Normal 0.0-20.0 [facility] Comment on above: Result Comment: PERF ORMED BY: [place] [address] PATHOLOGIST ARTIST RELATIONSHIP MANAGER MELANI GUTIÉRREZ M.D. Performed By: #### L IPID, CBC, PT, CMP #### [facility] [address] Troponin I.cardiac [Mass/vol ume] in Serum or Plasma by Detection limit <= 0.01 ng/Ordered By: Toy Yeager on 04-03-2023 Troponin I.cardiac DL <= 0.01 ng/mL [Mass/Vol] 7.0 pg/mL 0.0-20.0 [facility] Activated partial thrombopla stin time (aPTT) in platelet poor plasma by coagulation aOrdered By: José Luis Coleman on 04-02-2023 aPTT Coag (PPP) [Time] 41.1 s 25.1-36.5 [facility] Alanine aminotransferase [En zymatic activity/volume] in Serum or PlasmaOrdered By: José Luis Coleman on 04-02-2023 ALT [Catalytic activity/Vol] 24 U/L 7-52 [facility] Albumin [Mass/volume] in Ser um or Plasma by Bromocresol green (BCG) dye binding methoOrdered By: José Luis Coleman on 04-02-2023 Albumin BCG dye [Mass/Vol] 4.1 g/dL 3.5-5.7 [facility] Alkaline phosphatase [Enzyma tic activity/volume] in Serum or PlasmaOrdered By: José Luis Coleman on 04-02-2023 ALP [Catalytic activity/Vol] 83 U/L 34-104 [facility] Aspartate aminotransferase [ Enzymatic activity/volume] in Serum or PlasmaOrdered By: José Luis Coleman on 04-02-2023 AST [Catalytic activity/Vol] 21 U/L 13-39 [facility] B-Type Natriuretic Peptideon 04-02-2023 Natriuretic peptide B (Bld) [Mass/Vol] 81.0 pg/mL Normal 5-100 [facility] Comment on above: Result Comment: PERF ORMED BY: [place] [address] PATHOLOGIST ARTIST RELATIONSHIP MANAGER MELANI GUTIÉRREZ M.D. Performed By: #### L IPID, CBC, PT, CMP #### [address] Basophils Auto (Bld) [#/Vol] Ordered By: José Luis Coleman on 04-02-2023 Basophils (Bld) [#/Vol] 0.1 10*3/uL 0.0-0.2 [facility] Basophils/100 WBC Auto (Bld) Ordered By: José Luis Coleman on 04-02-2023 Basophils/100 WBC (Bld) 1.0 % . [facility] Bilirubin.total [Mass/volume ] in Serum or PlasmaOrdered By: José Luis Coleman on 04-02-2023 Bilirubin [Mass/Vol] 0.9 mg/dL 0.3-1.0 [facility] Calcium [Mass/volume] in Ser um or PlasmaOrdered By: José Luis Coleman on 04-02-2023 Calcium [Mass/Vol] 9.4 mg/dL 8.6-10.3 [facility] Carbon dioxide, total [Moles /volume] in Serum or PlasmaOrdered By: José Luis Coleman on 04-02-2023 CO2 [Moles/Vol] 26.2 mmol/L 21.0-31.0 [facility] Chloride [Moles/volume] in S suad or PlasmaOrdered By: José Luis Coleman on 04-02-2023 Chloride [Moles/Vol] 102 mmol/L 98-107 [facility] Complete Blood Count Auto Di ffon 04-02-2023 Basophils (Bld) [#/Vol] 0.1 10*3/uL Normal 0.0-0.2 [facility] Comment on above: Result Comment: PERF ORMED BY: [place] [address] PATHOLOGIST ARTIST RELATIONSHIP MANAGER MELANI GUTIÉRREZ M.D. Performed By: #### L IPID, CBC, PT, CMP #### [facility] [address] Basophils/100 WBC (Bld) 1.0 % Normal . [facility] Comment on above: Performed By: #### L IPID, CBC, PT, CMP #### [facility] [address] Eosinophils (Bld) [#/Vol] 0.2 10*3/uL Normal 0.0-0.45 [facility] Comment on above: Performed By: #### L IPID, CBC, PT, CMP #### [facility] [address] Eosinophils/100 WBC (Bld) 3.0 % Normal . [facility] Comment on above: Performed By: #### L IPID, CBC, PT, CMP #### [facility] [address] Erythrocyte distribution width (RBC) [Ratio] 14.3 % Normal 12.0-14.8 [facility] Comment on above: Performed By: #### L IPID, CBC, PT, CMP #### [facility] [address] Hematocrit (Bld) [Volume fraction] 43.1 % Normal 38.8-50.0 [facility] Comment on above: Performed By: #### L IPID, CBC, PT, CMP #### [facility] [address] Hemoglobin (Bld) [Mass/Vol] 15.4 g/dL Normal 13.0-17.0 [facility] Comment on above: Performed By: #### L IPID, CBC, PT, CMP #### [address] Lymphocytes (Bld) [#/Vol] 1.5 10*3/uL Normal 1.00-4.8 [facility] Comment on above: Performed By: #### L IPID, CBC, PT, CMP #### [address] Lymphocytes/100 WBC (Bld) 18.7 % Normal . [facility] Comment on above: Performed By: #### L IPID, CBC, PT, CMP #### [address] MCH (RBC) [Entitic mass] 32.1 pg Normal 27.5-35.2 [facility] Comment on above: Performed By: #### L IPID, CBC, PT, CMP #### [address] MCV (RBC) [Entitic vol] 89.9 fL Normal 83.5-101 [facility] Comment on above: Performed By: #### L IPID, CBC, PT, CMP #### [address] Mean Corpuscular HGB Conc 35.8 g/dL High 32.5-35.6 [facility] Comment on above: Performed By: #### L IPID, CBC, PT, CMP #### [address] Monocytes (Bld) [#/Vol] 0.8 10*3/uL Normal 0.0-0.8 [facility] Comment on above: Performed By: #### L IPID, CBC, PT, CMP #### [address] Monocytes/100 WBC (Bld) 18.18 % Normal 0.00-20.00 [facility] Comment on above: Performed By: #### L IPID, CBC, PT, CMP #### [facility] [address] [place] [address] [place] Monocytes/100 WBC (Bld) 9.6 % Normal . [facility] Comment on above: Performed By: #### L IPID, CBC, PT, CMP #### [facility] [address] Neutrophils (Bld) [#/Vol] 5.3 10*3/uL Normal 1.8-7.7 [facility] Comment on above: Performed By: #### L IPID, CBC, PT, CMP #### [address] Neutrophils/100 WBC (Bld) 67.7 % Normal . [facility] Comment on above: Performed By: #### L IPID, CBC, PT, CMP #### [address] NRBC% 0.2 /100{WBC} Normal 0-0.5 [facility] Comment on above: Performed By: #### L IPID, CBC, PT, CMP #### [place] [address] [place] Platelet mean volume (Bld) [Entitic vol] 9.6 fL Normal 6.6-10.1 [facility] Comment on above: Performed By: #### L IPID, CBC, PT, CMP #### [place] [address] [place] Platelets (Bld) [#/Vol] 179 10*3/uL Normal 150-450 [facility] Comment on above: Performed By: #### L IPID, CBC, PT, CMP #### [facility] [address] [place] [address] [place] RBC (Bld) [#/Vol] 4.79 10*6/uL Normal 3.90-5.60 [facility] Comment on above: Performed By: #### L IPID, CBC, PT, CMP #### [place] [address] [place] WBC (Bld) [#/Vol] 7.8 10*3/uL Normal 4.1-10.5 [facility] Comment on above: Performed By: #### L IPID, CBC, PT, CMP #### [facility] [address] [place] [address] Comprehensive Metabolic Pane lindy 04-02-2023 Albumin [Mass/Vol] 4.1 g/dL Normal 3.5-5.7 [facility] Comment on above: Performed By: #### L IPID, CBC, PT, CMP #### [facility] [address] Albumin/Globulin [Mass ratio] 1.6 {ratio} Normal [facility] Comment on above: Performed By: #### L IPID, CBC, PT, CMP #### [facility] [address] [place] [address] ALP [Catalytic activity/Vol] 83 U/L Normal 34-104 [facility] Comment on above: Performed By: #### L IPID, CBC, PT, CMP #### [facility] [address] [place] [address] ALT [Catalytic activity/Vol] 24 U/L Normal 7-52 [facility] Comment on above: Performed By: #### L IPID, CBC, PT, CMP #### [facility] [address] [place] [address] Anion gap [Moles/Vol] 15.1 mmol/L High 6.0-15.0 [facility] Comment on above: Performed By: #### L IPID, CBC, PT, CMP #### [facility] [address] [place] [address] AST [Catalytic activity/Vol] 21 U/L Normal 13-39 [facility] Comment on above: Performed By: #### L IPID, CBC, PT, CMP #### [facility] [address] [place] [address] Bilirubin [Mass/Vol] 0.9 mg/dL Normal 0.3-1.0 [facility] Comment on above: Performed By: #### L IPID, CBC, PT, CMP #### [facility] [address] Calcium [Mass/Vol] 9.4 mg/dL Normal 8.6-10.3 [facility] Comment on above: Performed By: #### L IPID, CBC, PT, CMP #### [facility] [address] Chloride [Moles/Vol] 102 mmol/L Normal 98-107 [facility] Comment on above: Performed By: #### L IPID, CBC, PT, CMP #### [facility] [address] CO2 [Moles/Vol] 26.2 mmol/L Normal 21.0-31.0 [facility] Comment on above: Performed By: #### L IPID, CBC, PT, CMP #### [address] Creatinine [Mass/Vol] 1.46 mg/dL High 0.70-1.30 [facility] Comment on above: Performed By: #### L IPID, CBC, PT, CMP #### [address] Creatinine Clr Calc Pharmacy 77.99 [facility] Comment on above: Result Comment: PERF ORMED BY: [place] [address] PATHOLOGIST ARTIST RELATIONSHIP MANAGER MELANI GUTIÉRREZ M.D. Performed By: #### L IPID, CBC, PT, CMP #### [facility] [address] [place] [address] [place] GFR/1.73 sq M.predicted MDRD (S/P/Bld) [Vol rate/Area] 54.714 mL/min/{1.73_m2} [facility] Comment on above: Performed By: #### L IPID, CBC, PT, CMP #### [facility] [address] Globulin (S) [Mass/Vol] 2.6 g/dL [facility] Comment on above: Performed By: #### L IPID, CBC, PT, CMP #### [facility] [address] [place] [address] [place] Glucose [Mass/Vol] 207 mg/dL High 70-100 [facility] Comment on above: Result Comment: [place] Glucose Reference Range is dependent on time and content of last meal. Glucose of more than 200 mg/dL in a nonstressed, ambulatory subject supports the diagnosis of Diabetes Mellitus. ADA recommended reference range Performed By: #### L IPID, CBC, PT, CMP #### [facility] [address] [place] [address] [place] Potassium [Moles/Vol] 4.3 mmol/L Normal 3.5-5.1 [facility] Comment on above: Performed By: #### L IPID, CBC, PT, CMP #### [facility] [address] [place] [address] [place] Protein [Mass/Vol] 6.7 g/dL Normal 6.4-8.9 [facility] Comment on above: Performed By: #### L IPID, CBC, PT, CMP #### [place] [address] [place] Sodium [Moles/Vol] 139 mmol/L Normal 136-145 [facility] Comment on above: Performed By: #### L IPID, CBC, PT, CMP #### [facility] [address] [place], [place] [id number] [place] Urea nitrogen [Mass/Vol] 33 mg/dL High 7-25 [facility] Comment on above: Performed By: #### L IPID, CBC, PT, CMP #### [facility] [address] [place] [address] [place] Creatine Kinaseon 04-02-2023 CK [Catalytic activity/Vol] 97 U/L Normal 30-223 [facility] Comment on above: Performed By: #### L IPID, CBC, PT, CMP #### [facility] [address] [place] [address] [place] CK [Catalytic activity/Vol] 97 U/L Normal 30-223 [facility] Comment on above: Performed By: #### L IPID, CBC, PT, CMP #### [facility] [address] [place] [address] [place] CK [Catalytic activity/Vol] 98 U/L Normal 30-223 [facility] Comment on above: Performed By: #### L IPID, CBC, PT, CMP #### [facility] [address] [place] [address] [place] Creatinine [Mass/volume] in Serum or PlasmaOrdered By: José Luis Coleman on 04-02-2023 Creatinine [Mass/Vol] 1.46 mg/dL 0.70-1.30 [facility] ECG 12 lead ECGon 04-02-2023 ECG 12 lead ECG [facility] [place] [address] [place] [address] Electrocardiograph Report Signed Patient: Harriett Thakkar MR#: [id number] : 1965 Acct:[id number] Age/Sex: 58 / M ADM Date: 04/02/23 Loc: Room: [address] [place] [address] Type: ADM INOo Attending Dr: Toy Yeager [...] found Confirmed by José Luis Coleman DO ([id number]) on 04/02/2023 2:43:56 PM Referred By: Electronically Signed By:José Luis Coleman DO Transcribed By: MUS Signed By José Luis Coleman DO 3 [id number] Normal [facility] Eosinophils Auto (Bld) [#/Vo l]Ordered By: José Luis Coleman on 04-02-2023 Eosinophils (Bld) [#/Vol] 0.2 10*3/uL 0.0-0.45 [facility] Eosinophils/100 WBC Auto (Bl d)Ordered By: José Luis Coleman on 04-02-2023 Eosinophils/100 WBC (Bld) 3.0 % . [facility] Erythrocyte distribution wid th Auto (RBC) [Ratio]Ordered By: José Luiselvin Irahetazi on 04-02-2023 Erythrocyte distribution width (RBC) [Ratio] 14.3 % 12.0-14.8 [facility] Globulin Calc (S) [Mass/Vol] Ordered By: José Luiselvin Irahetazi on 04-02-2023 Globulin (S) [Mass/Vol] 2.6 g/dL [facility] Glucose Poct Glucometerson 0 04-02-2023 Glucose [Mass/Vol] 122 mg/dL Normal [facility] Comment on above: Result Comment: [facility] Glucose Reference Range is dependent on time and content of last meal. Glucose of more than 200 mg/dL in a nonstressed, ambulatory subject supports the diagnosis of Diabetes Mellitus. PERFORMED BY: [place] [address] PATHOLOGIST ARTIST RELATIONSHIP MANAGER MELANI GUTIÉRREZ M.D. Performed By: #### L IPID, CBC, PT, CMP #### [facility] [address] [place] [address] Commemt1 Glu2: Cleaned Meter Normal [facility] Comment on above: Result Comment: PERF ORMED BY: [place] [address] PATHOLOGIST ARTIST RELATIONSHIP MANAGER MELANI GUTIÉRREZ M.D. Performed By: #### L IPID, CBC, PT, CMP #### [facility] [address] [place] [address] Glucose [Mass/Vol] 112 mg/dL Normal [facility] Comment on above: Result Comment: [place] Glucose Reference Range is dependent on time and content of last meal. Glucose of more than 200 mg/dL in a nonstressed, ambulatory subject supports the diagnosis of Diabetes Mellitus. Performed By: #### L IPID, CBC, PT, CMP #### [facility] [address] Glucose [Mass/volume] in Ser um or PlasmaOrdered By: José Luis Coleman on 04-02-2023 Glucose [Mass/Vol] 207 mg/dL 70-100 [facility] Comment on above: ADA recommended refe rence rangeRandom Glucose Reference Range is dependent on time and content of last meal. Glucose of more than 200 mg/dL in a nonstressed, ambulatory subject supports the diagnosis of Diabetes Mellitus. Hematocrit Auto (Bld) [Volum e fraction]Ordered By: José Luis Coleman on 04-02-2023 Hematocrit (Bld) [Volume fraction] 43.1 % 38.8-50.0 [facility] Hemoglobin [Mass/volume] in BloodOrdered By: José Luis Coleman on 04-02-2023 Hemoglobin (Bld) [Mass/Vol] 15.4 g/dL 13.0-17.0 [facility] Laboratory - CoagulationOrde red By: José Luis Coleman on 04-02-2023 PT Coag (PPP) [Time] 32.0 s 9.0-12.9 [facility] Leukocytes [#/volume] correc kaylee for nucleated erythrocytes in Blood by Automated counOrdered By: José Luis Coleman on 04-02-2023 WBC corrected for nucl RBC Auto (Bld) [#/Vol] 7.8 10*3/uL 4.1-10.5 [facility] Lymphocytes Auto (Bld) [#/Vo l]Ordered By: José Luis Coleman on 04-02-2023 Lymphocytes (Bld) [#/Vol] 1.5 10*3/uL 1.00-4.8 [facility] Lymphocytes/100 WBC Auto (Bl d)Ordered By: José Luis Coleman on 04-02-2023 Lymphocytes/100 WBC (Bld) 18.7 % . [facility] MCH Auto (RBC) [Entitic mass ]Ordered By: José Luis Coleman on 04-02-2023 MCH (RBC) [Entitic mass] 32.1 pg 27.5-35.2 [facility] MCHC Auto (RBC) [Mass/Vol]Or dered By: José Luis Coleman on 04-02-2023 MCHC (RBC) [Mass/Vol] 35.8 g/dL 32.5-35.6 [facility] MCV Auto (RBC) [Entitic vol] Ordered By: José Luis Coleman on 04-02-2023 MCV (RBC) [Entitic vol] 89.9 fL 83.5-101 [facility] Monocyte distribution width [Entitic volume] in Blood by AutomatedOrdered By: José Luis Coleman on 04-02-2023 Monocyte distribution width Auto (Bld) [Entitic vol] 18.18 % 0.00-20.00 [facility] Monocytes Auto (Bld) [#/Vol] Ordered By: José Luis Coleman on 04-02-2023 Monocytes (Bld) [#/Vol] 0.8 10*3/uL 0.0-0.8 [facility] Monocytes/100 WBC Auto (Bld) Ordered By: José Luis Coleman on 04-02-2023 Monocytes/100 WBC (Bld) 9.6 % . [facility] Natriuretic peptide B [Mass/ Vol]Ordered By: José Luis Coleman on 04-02-2023 Natriuretic peptide B (Bld) [Mass/Vol] 81.0 pg/mL 5-100 [facility] Neutrophils Auto (Bld) [#/Vo l]Ordered By: José Luis Coleman on 04-02-2023 Neutrophils (Bld) [#/Vol] 5.3 10*3/uL 1.8-7.7 [facility] Neutrophils/100 WBC Auto (Bl d)Ordered By: José Luis Coleman on 04-02-2023 Neutrophils/100 WBC (Bld) 67.7 % . [facility] No Panel InformationOrdered By: José Luis Coleman on 04-02-2023 Estimated GFR (CKD-EPI) 54.714 mL/Min [facility] Creatinine Clearance (Chem 77.99 [facility] Nucleated erythrocytes [Pres ence] in Blood by Automated countOrdered By: José Luis Coleman on 04-02-2023 Nucleated RBC Auto Ql (Bld) 0.2 /100{WBC} 0-0.5 [facility] Partial Thromboplastin Timeo n 04-02-2023 aPTT Coag (Bld) [Time] 41.1 s High 25.1-36.5 [facility] Comment on above: Result Comment: PERF ORMED BY: [facility] [address] [place] [address] PATHOLOGIST ARTIST RELATIONSHIP MANAGER MELANI GUTIÉRREZ M.D. Performed By: #### L IPID, CBC, PT, CMP #### [facility] [address] Platelet mean volume Auto (B ld) [Entitic vol]Ordered By: José Luis Coleman on 04-02-2023 Platelet mean volume (Bld) [Entitic vol] 9.6 fL 6.6-10.1 [facility] Platelet poor plasma interna tional normalized ratio (INR) by coagulation assay (relatOrdered By: José Luis Coleman on 04-02-2023 INR Coag (PPP) [Relative time] 2.8 {INR} [facility] Comment on above: INR Therapeutic Rang e [...] 04-02-2023 Platelets (Bld) [#/Vol] 179 10*3/uL 150-450 [facility] Potassium [Moles/volume] in Serum or PlasmaOrdered By: José Luis Coleman on 04-02-2023 Potassium [Moles/Vol] 4.3 mmol/L 3.5-5.1 [facility] Protein [Mass/volume] in Ser um or PlasmaOrdered By: José Luis Coleman on 04-02-2023 Protein [Mass/Vol] 6.7 g/dL 6.4-8.9 [facility] Prothrombin Time INRon 04-02 INR Coag (PPP) [Relative time] 2.8 {INR} Normal [facility] Comment on above: Result Comment: INR Therapeutic [...] valves: 3 - 4.5 Performed By: #### L IPID, CBC, PT, CMP #### [address] PT Coag (PPP) [Time] 32.0 s High 9.0-12.9 [facility] Comment on above: Performed By: #### L IPID, CBC, PT, CMP #### [address] RBC Auto (Bld) [#/Vol]Ordere d By: José Luis Coleman on 04-02-2023 RBC (Bld) [#/Vol] 4.79 10*6/uL 3.90-5.60 [facility] Serum or plasma albumin/glob ulin mass ratioOrdered By: José Luis Coleman on 04-02-2023 Albumin/Globulin [Mass ratio] 1.6 {ratio} [facility] Serum or plasma anion gap de terminationOrdered By: José Luis Coleman on 04-02-2023 Anion gap [Moles/Vol] 15.1 mmol/L 6.0-15.0 [facility] Sodium [Moles/volume] in Ser um or PlasmaOrdered By: José Luis Coleman on 04-02-2023 Sodium [Moles/Vol] 139 mmol/L 136-145 [facility] Troponin I High Sensitivityo n 04-02-2023 Troponin I High Sensitivity 14.5 pg/mL Normal 0.0-20.0 [facility] Comment on above: Result Comment: PERF ORMED BY: [place] [address] PATHOLOGIST ARTIST RELATIONSHIP MANAGER MELANI GUTIÉRREZ M.D. Performed By: #### L IPID, CBC, PT, CMP #### [address] Troponin I High Sensitivity 8.5 pg/mL Normal 0.0-20.0 [facility] Comment on above: Result Comment: PERF ORMED BY: [place] [address] PATHOLOGIST ARTIST RELATIONSHIP MANAGER MELANI GUTIÉRREZ M.D. Performed By: #### L IPID, CBC, PT, CMP #### [facility] [address] [place] [address] Troponin I High Sensitivity 8.9 pg/mL Normal 0.0-20.0 [facility] Comment on above: Result Comment: PERF ORMED BY: [place] [address] PATHOLOGIST ARTIST RELATIONSHIP MANAGER MELANI GUTIÉRREZ M.D. Performed By: #### G LULS #### Point of Care testing , Troponin I High Sensitivity 8.8 pg/mL Normal 0.0-20.0 [facility] Comment on above: Result Comment: PERF ORMED BY: [place] [address] PATHOLOGIST ARTIST RELATIONSHIP MANAGER MELANI GUTIÉRREZ M.D. Performed By: #### L IPID, CBC, PT, CMP #### [facility] [address] [place] [address] Troponin I.cardiac [Mass/vol ume] in Serum or Plasma by Detection limit <= 0.01 ng/Ordered By: José Luis Coleman on 04-02-2023 Troponin I.cardiac DL <= 0.01 ng/mL [Mass/Vol] 8.8 pg/mL 0.0-20.0 [facility] Urea nitrogen [Mass/volume] in Serum or PlasmaOrdered By: José Luis Coleman on 04-02-2023 Urea nitrogen [Mass/Vol] 33 mg/dL 7 [facility] WBC Auto (Bld) [#/Vol]Ordere d By: José Luis Coleman on 04-02-2023 WBC (Bld) [#/Vol] 7.8 10*3/uL 4.1-10.5 [facility] XR chest 1V portableon 07-15 -2023 XR chest 1V portable [facility] [place] [address] [place] [address] XRay Report Signed Patient: Harriett Thakkar MR#: [id number] : 1965 Acct:[id number] Age/Sex: 58 / M ADM Date: 04/02/23 [...] Erica Hay M.D.04/02/2023 10:41 AM Dictation Location: [place] [address] Transcribed By: [facility] 04/02/23 1041 Dictated By: Erica Hay MD 04/02/23 1040 Signed By: 04/02/23 1041 [facility] Prothrombin Time INRon 03-14 INR Coag (PPP) [Relative time] 2.7 {INR} [facility] Other Prothrombin Time INRon 02-16 Prothrombin Time INR Nort [facility] Other Prothrombin Time INRon 01-25 INR Coag (PPP) [Relative time] 2.7 {INR} [facility] Other Prothrombin Time INR [facility] Other Ambulatory Visit Summaryon 0 01-19-2023 Ambulatory Visit Summary HARRIETT THAKKAR :1965 Visit Date:01/19/2023 Ambulatory Visit Instructions Your Diagnosis BMI 39.0-39.9,adult Class 3 obesity Your Care Team Attending Physician - GLADYS GARCIA MD Primary Care Physician - GLADYS GARCIA MD This Is Your Medications List Misc Prescription ([facility] [place] [place] [facility] Prescription) Misc Prescription ([facility] [place] [place] [facility] Prescription) aspirin (aspirin 81 mg Oral [...] for. 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 (414.01) (I25.10) History of PTCA (V45.82) (Z98.61) History of NV (myocardial infarction) (412) (I25.2) Ventricular tachycardia, nonsustained [...] Weight Tips; Status:Complete - Retrospective Authorization; Done: [id number] Some eating tips that can help you lose weight.; Status:Complete - Retrospective Authorization; Done: [id number] 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 Renew: Atorvastatin Calcium 80 MG Oral Tablet; take 1 tablet by mouth every evening Paroxysmal atrial fibrillation IO EKG Electrocardiogram- 12 Lead; Status:Complete; Done: [id number] SocHx: Never a smoker Tobacco Use Screening; Status:Complete; Done: [id number] Patient Instructions Please bring all medicines, vitamins, [...] catheterization with stent placement History of Colonoscopy [id number] History of Neck surgery disectomy History of Toe amputation Past Medical History Problems History of dizziness (V13.89) (Z87.898) Resolved Date: 16 Dec 2021 History of dyspnea (V12.69) (Z87.898) Resolved Date: 16 Dec 2021 Current Meds Medication NameInstruction Atorvastatin Calcium 80 MG Oral Tablettake 1 tablet by mouth every evening Clopidogrel Bisulfate 75 MG Oral TabletTake (more content not included)... Normal [employer] Tobacco Screening.on 023 Tobacco use status [facility] b) No -[facility] y [facility] DO Work Phone: Physician Referralon 023 Physician Referral [id number] #1.00CD:127 Normal [facility] Prothrombin Time INRon 12-30 INR Coag (PPP) [Relative time] 2.5 {INR} [facility] [email or web address] Other Prothrombin Time INR [facility] [email or web address] Other Lab Reportson 12-29-2022 Lab Reports [id number] #1.00CD:127 Normal [facility] Lab Reports [id number] #1.00CD:127 Normal [facility] CBC AUTO DIFFon 12-23-2022 BASO # 0.0 103/ul Normal 0.0-0.1 [facility] Comment on above: Performed By: #### C BC #### [facility] [address] [place] [address] Dr. Rayshawn Clark Basophils/100 WBC (Bld) 0.4 % Normal 0.2-2.0 [facility] Comment on above: Performed By: #### C BC #### [facility] [address] [place] [address] Dr. Rayshawn Clark EO # 0.3 103/ul Normal 0.0-0.7 [facility] Comment on above: Performed By: #### C BC #### [facility] [address] [place] [address] Dr. Rayshawn Clark Eosinophils/100 WBC (Bld) 3.5 % Normal 0.9-7.0 [facility] Comment on above: Performed By: #### C BC #### [facility] [address] [place] [address] Dr. Rayshawn Clark Erythrocyte distribution width (RBC) [Ratio] 12.5 % Normal 11.0-15.0 [facility] Comment on above: Performed By: #### C BC #### [facility] [address] [place] [address] Dr. Rayshawn Clark Hematocrit (Bld) [Volume fraction] 43.3 % Normal 42.0-54.0 [facility] Comment on above: Performed By: #### C BC #### [facility] [address] [place] [address] Dr. Rayshawn Clark Hemoglobin (Bld) [Mass/Vol] 15.6 g/dL Normal 14.0-18.0 [facility] Comment on above: Performed By: #### C BC #### [facility] [address] [place] [address] Dr. Rayshawn Clark IG # 0.03 10e3/ul Normal 0.00-0.03 [facility] Comment on above: Performed By: #### C BC #### [facility] [address] [place] [address] Dr. Rayshawn Clark IG % 0.4 % Normal 0.0-0.5 [facility] Comment on above: Performed By: #### C BC #### [facility] [address] [place] [address] Dr. Rayshawn Clark LYMPH # 1.4 103/ul Normal 1.2-3.8 [facility] Comment on above: Performed By: #### C BC #### [facility] [address] [place] [address] Dr. Rayshawn Clark Lymphocytes/100 WBC (Bld) 17.5 % Critically low 20.5-60.0 [facility] Comment on above: Performed By: #### C BC #### [facility] [address] [place] [address] Dr. Rayshawn Clark MANUAL DIFF REQ NO Normal [facility] Comment on above: Performed By: #### C BC #### [facility] [address] [place] [address] Dr. Rayshawn Clark MCH (RBC) [Entitic mass] 32.0 pg Normal 25.9-34.0 [facility] Comment on above: Performed By: #### C BC #### [facility] [address] [place] [address] Dr. Rayshawn Clark MCHC (RBC) [Mass/Vol] 36.0 g/dL Critically high 29.9-35.2 [facility] Comment on above: Performed By: #### C BC #### [facility] [address] [address] [address] Rayshawn Clark MCV (RBC) [Entitic vol] 88.7 fL Normal 80.0-94.0 [facility] Comment on above: Performed By: #### C BC #### [facility] [address] [place] [address] [address] Rayshawn Clark MONO # 0.6 103/ul Normal 0.3-0.8 [facility] Comment on above: Performed By: #### C BC #### [facility] [address] [place] [address] [address] Rayshawn Clark Monocytes/100 WBC (Bld) 7.9 % Normal 1.7-12.0 [facility] Comment on above: Performed By: #### C BC #### [facility] [address] [place] [address] [address] Rayshawn Clark NEUT # 5.6 103/ul Normal 1.4-6.5 [facility] Comment on above: Performed By: #### C BC #### [facility] [address] [place] [address] [address] Rayshawn Clark Neutrophils/100 WBC (Bld) 70.3 % Normal 43.0-75.0 [facility] Comment on above: Performed By: #### C BC #### [facility] [address] [place] [address] [address] Rayshawn Clark Platelet mean volume (Bld) [Entitic vol] 10.6 fL Normal 9.5-13.5 [facility] Comment on above: Performed By: #### C BC #### [facility] [address] [place] [address] [address] Rayshawn Clark PLT 134 103/ul Critically low 150-450 [facility] Comment on above: Performed By: #### C BC #### [facility] [address] [place] [address] [address] Rayshawn Clark RBC 4.88 106/ul Normal 4.70-6.10 [facility] Comment on above: Performed By: #### C BC #### [facility] [address] [place] [address] Dr. Rayshawn Clark WBC 7.9 103/ul Normal 4.0-11.0 [facility] Comment on above: Performed By: #### C BC #### [facility] [address] [place] [address] Dr. Rayshawn Clark CRPon 12-23-2022 CRP 1.8 mg/dL Critically high <=1.0 [facility] Comment on above: Performed By: #### C RP, PREALB #### [facility] [address] [place] [address] Dr. Rayshawn Clark GLYCOHEMOGLOBIN A1Con 2022 ADA RECOMMENDATION SEE BELOW Normal [facility] Comment on above: Result Comment: ADA RECOMMENDED LIMIT 4.0 - 6.0 ADA THERAPEUTIC TARGET < 7.0 ACTION SUGGESTED > 7.0 Performed By: #### A 1C #### [facility] [address] [place] [address] Dr. Rayshawn Clark Glucose [Mass/Vol] 200 mg/dL Normal [facility] Comment on above: Performed By: #### A 1C #### [facility] [address] [place] [address] Dr. Rayshawn Clark HbA1c (Bld) [Mass fraction] 8.6 % Critically high 4.5-6.2 [facility] Comment on above: Performed By: #### A 1C #### [facility] [address] [place] [address] Dr. Rayshawn Clark LIPID PROFILEon 12-23-2022 CHOL-HDL RATIO NORM SEE BELOW Normal [facility] Comment on above: Result Comment: 3.3 - 4.4 LOW RISK 4.4 - 7.1 AVERAGE RISK 7.1 - 11.0 MODERATE RISK >11.0 HIGH RISK Performed By: #### M G, TSH, LIPID, CMP #### [facility] [address] [place] [address] Dr. Rayshawn Clark Cholesterol [Mass/Vol] 94 mg/dL Normal <=200 [facility] Comment on above: Performed By: #### M G, TSH, LIPID, CMP #### [facility] [address] [place] [address] [address] Rayshawn Clark Cholesterol in HDL [Mass/Vol] 34 mg/dL Critically low 40-60 [facility] Comment on above: Performed By: #### M G, TSH, LIPID, CMP #### [facility] [address] [place] [address] [address] Rayshawn Clark Cholesterol in LDL [Mass/Vol] 42.4 mg/dL Normal [facility] Comment on above: Performed By: #### M G, TSH, LIPID, CMP #### [facility] [address] [place] [address] Dr. Rayshawn Clark Cholesterol.total/Ch olesterol in HDL [Mass ratio] 2.8 {ratio} Normal [facility] Comment on above: Performed By: #### M G, TSH, LIPID, CMP #### [facility] [address] [place] [address] Dr. Rayshawn Clark HDL NORMAL > or = 60 mg/dl - LOW CARDIOVASCULAR RISK <40 mg/dl - HIGH CARDIOVASCULAR RISK Normal [facility] Comment on above: Performed By: #### M G, TSH, LIPID, CMP #### [facility] [address] [place] [address] Dr. Rayshawn Clark LDL CALC NORMAL SEE BELOW Normal [facility] Comment on above: Result Comment: <100 mg/dl OPTIMAL 100 - 129 mg/dl NEAR OR ABOVE OPTIMAL 130 - 159 mg/dl BORDERLINE HIGH 160 - 189 mg/dl HIGH >190 mg/dl VERY HIGH Performed By: #### M G, TSH, LIPID, CMP #### [facility] [address] [place] [address] [address] Rayshawn Clark Triglyceride [Mass/Vol] 88 mg/dL Normal <=150 [facility] Comment on above: Performed By: #### M G, TSH, LIPID, CMP #### [facility] [address] [place] [address] Dr. Rayshawn Clark VLDL CALC 17.6 mg/dL Normal [facility] Comment on above: Performed By: #### M G, TSH, LIPID, CMP #### [facility] [address] [place] [address] Dr. Rayshawn Clark MAGNESIUMon 12-23-2022 Magnesium [Mass/Vol] 1.0 mg/dL Critically low 1.8-2.4 [facility] Comment on above: Performed By: #### M G, TSH, LIPID, CMP #### [facility] [address] [place] [address] Dr. Rayshawn Clark PREALBUMINon 12-23-2022 Prealbumin [Mass/Vol] 21.2 mg/dL Normal 20.9-45.5 [facility] Comment on above: Performed By: #### C RP, PREALB #### [facility] [address] [place] [address] Dr. Rayshawn Clark PROF 14(COMP METB)on 023 Albumin [Mass/Vol] 3.6 g/dL Normal 3.4-5.0 [facility] Comment on above: Performed By: #### M G, TSH, LIPID, CMP #### [facility] [address] [place] [address] Dr. Rayshawn Clark Albumin/Globulin [Mass ratio] 1.1 {ratio} Normal [facility] Comment on above: Performed By: #### M G, TSH, LIPID, CMP #### [facility] [address] [place] [address] Dr. Rayshawn Clark ALP [Catalytic activity/Vol] 99 U/L Normal 46-116 [facility] Comment on above: Performed By: #### M G, TSH, LIPID, CMP #### [facility] [address] [place] [address] Dr. Rayshawn Clark ALT [Catalytic activity/Vol] 35 U/L Normal 16-63 [facility] Comment on above: Performed By: #### M G, TSH, LIPID, CMP #### [facility] [address] [place] [address] Dr. Rayshawn Clark Anion gap [Moles/Vol] 13.5 mmol/L Normal [facility] Comment on above: Performed By: #### M G, TSH, LIPID, CMP #### [facility] [address] [place] [address] [address] Rayshawn Clark AST [Catalytic activity/Vol] 18 U/L Normal 15-37 [facility] Comment on above: Performed By: #### M G, TSH, LIPID, CMP #### [facility] [address] [place] [address] Dr. Rayshawn Clark Bilirubin [Mass/Vol] 0.9 mg/dL Normal 0.2-1.0 [facility] Comment on above: Performed By: #### M G, TSH, LIPID, CMP #### [facility] [address] [place] [address] Dr. Rayshawn Clark Calcium [Mass/Vol] 9.1 mg/dL Normal 8.5-10.1 [facility] Comment on above: Performed By: #### M G, TSH, LIPID, CMP #### [facility] [address] [place] [address] Dr. Rayshawn Clark Chloride [Moles/Vol] 101 mmol/L Normal 98-107 [facility] Comment on above: Performed By: #### M G, TSH, LIPID, CMP #### [facility] [address] [place] [address] Dr. Rayshawn Clark CO2 [Moles/Vol] 26.6 mmol/L Normal 21.0-32.0 [facility] Comment on above: Performed By: #### M G, TSH, LIPID, CMP #### [facility] [address] [place] [address] Dr. Rayshawn Clark Creatinine [Mass/Vol] 1.11 mg/dL Normal 0.70-1.30 [facility] Comment on above: Performed By: #### M G, TSH, LIPID, CMP #### [facility] [address] [place] [address] Dr. Rayshawn Clark EGFR-AF TRINIDADIAN >60 Normal >=60 [facility] Comment on above: Performed By: #### M G, TSH, LIPID, CMP #### [facility] [address] [address] [address] Rayshawn Clark EGFR-NON AF TRINIDADIAN >60 Normal >=60 [facility] [facility] Comment on above: Performed By: #### M G, TSH, LIPID, CMP #### [facility] [address] [address] [address] Rayshawn Clark Globulin (S) [Mass/Vol] 3.4 g/dL Normal [facility] Comment on above: Performed By: #### M G, TSH, LIPID, CMP #### [facility] [address] [address] [address] Rayshawn Clark Glucose [Mass/Vol] 187 mg/dL Critically high 74-106 T [facility] Comment on above: Performed By: #### M G, TSH, LIPID, CMP #### [facility] [address] [address] [address] Rayshawn Clark Potassium [Moles/Vol] 4.1 mmol/L Normal 3.5-5.1 [facility] Comment on above: Performed By: #### M G, TSH, LIPID, CMP #### [facility] [address] [address] [address] Rayshawn Clark Protein [Mass/Vol] 7.0 g/dL Normal 6.4-8.2 [facility] Comment on above: Performed By: #### M G, TSH, LIPID, CMP #### [facility] [address] [address] [address] Rayshawn Clark Sodium [Moles/Vol] 137 mmol/L Normal 136-145 [facility] Comment on above: Performed By: #### M G, TSH, LIPID, CMP #### [facility] [address] [address] [address] Rayshawn Clark Urea nitrogen [Mass/Vol] 16.0 mg/dL Normal 7.0-18.0 [facility] Comment on above: Performed By: #### M G, TSH, LIPID, CMP #### [facility] [address] [address] [address] Rayshawn Clark Urea nitrogen/Creatinine [Mass ratio] 14.4 mg/mg Normal [facility] Comment on above: Performed By: #### M G, TSH, LIPID, CMP #### [facility] [address] [address] [address] Rayshawn Clark Physician Referralon 023 Physician Referral [id number] Normal [facility] mm/hr Normal <=20 [facility] Comment on above: Performed By: #### S EDR #### [facility] [address] [address] [address] Rayshawn Clark TSHon 12-23-2022 TSH 1.119 uIU/mL Normal 0.358-3.740 [facility] Comment on above: Performed By: #### M G, TSH, LIPID, CMP #### [facility] [address] [place] [address] Dr. Rayshawn Clark Aerobic Cultureon 12-22-2022 Aerobic [...] RESISTANT TO ALL B-LACTAM DRUGS. PERFORMED BY: [place] [address] PATHOLOGIST ARTIST RELATIONSHIP MANAGER MELANI GUTIÉRREZ M.D. [facility] Comment on above: Performed By: #### L IPID, CBC, PT, CMP #### [address] Ambulatory Visit Summaryon 0 12-22-2022 Ambulatory Visit Summary HARRIETT THAKKAR :1965 Visit Date:12/22/2022 Ambulatory Visit Instructions Your Diagnosis BMI 38.0-38.9,adult Class 1 obesity due to excess calories in adult Adult general medical exam Your Care Team Attending Physician - GLADYS GARCIA MD Primary Care Physician - GLADYS GARCIA MD [facility] ([facility] [place] [facility] Prescription) Misc Prescription ([facility] [place] [place] [facility] Prescription) aspirin (aspirin 81 mg Oral [...] Someone Will Contact You Regarding These Appointments [facility] External Ambulatory Referral, Cardiology, HX OF ORTHOSTATIC [...] contusion and hemopericardium\. br\ COVID-19\.br\ \.br\ [facility] Family Medicine Office/Clini c Noteon 12-22-2022 Family [...] mg, SubCutane (more content not included)... Normal [facility] Comment on above: Result Comment: Elec tronically Signed By: RADHA KRAUSE, GLADYS E\.br\Date and Time Signed: 12/22/22 09:57 EDT Laboratory - CoagulationOrde red By: iNmo Fu on 12-15-2022 PT Coag (PPP) [Time] 47.1 s 9.0-12.9 [facility] Platelet poor plasma interna tional normalized ratio (INR) by coagulation assay (relatOrdered By: Nimo Fu on 12-15-2022 INR Coag (PPP) [Relative time] 4.1 {INR} [facility] Comment on above: INR Therapeutic Rang e [...] Coag (PPP) [Relative time] 4.1 {INR} Normal [facility] Comment on above: Order Comment: List the [...] heart valves: 3 - 4.5 PERFORMED BY: [address] [address] [place] [address] PATHOLOGIST ARTIST RELATIONSHIP MANAGER MELANI GUTIÉRREZ M.D. Performed By: #### G LULS #### Point of Care testing , PT Coag (PPP) [Time] 47.1 s High 9.0-12.9 [facility] Comment on above: Order Comment: List the anticoagulant: HEPARIN/COUMADIN Performed By: #### G LULS #### Point of Care testing , Prothrombin Time INR [employer] Other Prothrombin Time INR 3.0/3.7 [facility] Other Prothrombin Time INRon 12-02 INR Coag (PPP) [Relative time] 3.5 {INR} [employer] Other Prothrombin Time INR [facility] [employer] Other Prothrombin Time INRon 11-01 INR Coag (PPP) [Relative time] 3.2 {INR} [employer] Other Prothrombin Time INR [employer] Other Prothrombin Time INRon 10-04 INR Coag (PPP) [Relative time] 1.6 {INR} [employer] Other Prothrombin Time INR [employer] Other Cardiovasc Arrhythmia Result son 08-05-2022 Cardiovasc Arrhythmia Results Reason For Visit Event Monitor: HARRIETT is here for the application of a 30 day event monitor in office., Diagnosis: I47.29 Ordering Physician: Dr. Angel Griggs MD Enrollment sent to: [employer] Monitor number [id number] applied. Strip from [facility] received for Dr. Angel Griggs MD [...] Ventricular tachycardia, nonsustained (427.1) (I47.29) Future Appointments Date/TimeProviderSquail [facility] 01/11/2023 09:30 Angel Webster, [id number] [facility] [address] DO Signatures Electronically signed by : Meena Moya L.P.N.; Sep 01 2022 10:04AM EST (Author) Electronically signed by : Angel Griggs MD; Sep 08 2022 2:41PM EST (Author) Normal [employer] Prothrombin Time INRon 07-26 INR Coag (PPP) [Relative time] 2.3 {INR} [facility] [email or web address] Other Prothrombin Time INR [facility] [email or web address] Other LIPID PROFILEon 07-17-2022 CHOL-HDL RATIO NORM SEE BELOW Normal [facility] Comment on above: Result Comment: 3.3 - 4.4 LOW RISK 4.4 - 7.1 AVERAGE RISK 7.1 - 11.0 MODERATE RISK >11.0 HIGH RISK Performed By: #### L IPID #### [facility] [address] [address] [address] Rayshawn Clark Cholesterol [Mass/Vol] 106 mg/dL Normal <=200 [facility] Comment on above: Performed By: #### L IPID #### [facility] [address] [address] [address] Rayshawn Clark Cholesterol in HDL [Mass/Vol] 25 mg/dL Critically low 40-60 [facility] Comment on above: Performed By: #### L IPID #### [facility] [address] [address] [address] Rayshawn Clark Cholesterol in LDL [Mass/Vol] 59.2 mg/dL Normal [facility] Comment on above: Performed By: #### L IPID #### [facility] [address] [address] [address] Rayshawn Clark Cholesterol.total/Ch olesterol in HDL [Mass ratio] 4.2 {ratio} Normal [facility] Comment on above: Performed By: #### L IPID #### [facility] [address] [address] [address] Rayshawn Clark HDL NORMAL > or = 60 mg/dl - LOW CARDIOVASCULAR RISK <40 mg/dl - HIGH CARDIOVASCULAR RISK Normal [facility] Comment on above: Performed By: #### L IPID #### [facility] [id number] Rayshawn Clark LDL CALC NORMAL SEE BELOW Normal [facility] Comment on above: Result Comment: <100 mg/dl OPTIMAL 100 - 129 mg/dl NEAR OR ABOVE OPTIMAL 130 - 159 mg/dl BORDERLINE HIGH 160 - 189 mg/dl HIGH >190 mg/dl VERY HIGH Performed By: #### L IPID #### [facility] [address] [place] [address] Dr. Rayshawn Clark Triglyceride [Mass/Vol] 109 mg/dL Normal <=150 [facility] Comment on above: Performed By: #### L IPID #### [facility] [address] [address] [address] Rayshawn Clark VLDL CALC 21.8 mg/dL Normal [facility] Comment on above: Performed By: #### L IPID #### [facility] [address] [place] [address] Dr. Rayshawn Clark Office Visit (Cardiology)on 07-12-2022 Follow-up visit Diagnoses/Problems Assessed Paroxysmal atrial fibrillation (427.31) (I48.0) Ischemic cardiomyopathy (414.8) (I25.5) Orthostatic hypotension (458.0) (I95.1) History of NV (myocardial infarction) (412) (I25.2) 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 (414.01) (I25.10) Anticoagulated [...] - Retrospective Authorization; Done: 12Jul2022 History of NV (myocardial infarction), Hyperlipidemia Lipid Panel; Status:Active - [...] of your visit. Obtain holter results from [facility]- March 2022 Pt instructed to change position [...] a visit to the emergency department at [facility] for palpitations and was found to be [...] monitor done in March 2022 at the [facility]. I will try to r (more content not included)... Normal [employer] Prothrombin Time INRon 06-21 INR Coag (PPP) [Relative time] 1.9 {INR} [place] [employer] Other Prothrombin Time INR Nort [employer] Other Prothrombin Time INRon 05-17 INR Coag (PPP) [Relative time] 3.1 {INR} [employer] Other Prothrombin Time INR Nort [facility] Other Bacteria identified Aer cx N om (Unsp spec)Ordered By: S Pineda Bustos on 05-12-2022 Superficial Wound Culture Escherichia coli [facility] Prothrombin Time INRon 04-07 INR Coag (PPP) [Relative time] 2.3 {INR} [employer] Other Prothrombin Time INR Nort [facility] Other Prothrombin Time INRon 03-10 INR Coag (PPP) [Relative time] 2.7 {INR} [employer] Other Prothrombin Time INR [employer] Other Activated partial thrombopla stin time (aPTT) in platelet poor plasma by coagulation aOrdered By: Lucila Coleman on 03-01-2022 aPTT Coag (PPP) [Time] 36.5 s 25.1-36.5 [facility] Basophils Auto (Bld) [#/Vol] Ordered By: Lucila Coleman on 03-01-2022 Basophils (Bld) [#/Vol] 0.0 10*3/uL 0.0-0.2 [facility] Basophils/100 WBC Auto (Bld) Ordered By: Lucila Coleman on 03-01-2022 Basophils/100 WBC (Bld) 0.6 % . [facility] Blood hemoglobin measurement (mass/volume)Ordered By: Lucila Coleman on 03-01-2022 Hemoglobin (Bld) [Mass/Vol] 15.1 g/dL 13.0-17.0 [facility] Blood leukocytes automated c ount (number/volume)Ordered By: Lucila Coleman on 03-01-2022 WBC (Bld) [#/Vol] 6.5 10*3/uL 4.5-11.0 [facility] Body fluid albumin measureme nt (mass/volume)Ordered By: Lucila Coleman on 03-01-2022 Albumin (Body fld) [Mass/Vol] 3.3 g/dL 3.2-5.5 [facility] Creatinine and Glomerular fi ltration rate.predicted panel (S/P/Bld)Ordered By: Lucila Coleman on 03-01-2022 Creatinine [Mass/Vol] 1.13 mg/dL 0.64-1.27 [facility] Eosinophils Auto (Bld) [#/Vo l]Ordered By: Lucila Coleman on 03-01-2022 Eosinophils (Bld) [#/Vol] 0.2 10*3/uL 0.0-0.45 [facility] Eosinophils/100 WBC Auto (Bl d)Ordered By: Lucila Coleman on 03-01-2022 Eosinophils/100 WBC (Bld) 2.5 % . [facility] Erythrocyte distribution wid th Auto (RBC) [Ratio]Ordered By: Lucila Coleman on 03-01-2022 Erythrocyte distribution width (RBC) [Ratio] 14.0 % 12.0-14.8 [facility] Estimated glomerular filtrat ion rate (GFR) non- AmericanOrdered By: Lucila Coleman on 03-01-2022 GFR/1.73 sq M.predicted among non-blacks MDRD (S/P/Bld) [Vol rate/Area] > 60 mL/Min [facility] Globulin Calc (S) [Mass/Vol] Ordered By: Lucila Coleman on 03-01-2022 Globulin (S) [Mass/Vol] 2.5 g/dL [facility] Hematocrit Auto (Bld) [Volum e fraction]Ordered By: Lucila Coleman on 03-01-2022 Hematocrit (Bld) [Volume fraction] 43.1 % 38.8-50.0 [facility] Laboratory - Chemistry and C hemistry - challengeOrdered By: Lucila Coleman on 03-01-2022 Magnesium [Mass/Vol] 1.1 mg/dL 1.6-2.6 [facility] Natriuretic peptide B (Bld) [Mass/Vol] 118.0 pg/mL 5-100 [facility] Laboratory - CoagulationOrde red By: Lucila Coleman on 03-01-2022 PT Coag (PPP) [Time] 23.9 s 9.0-12.9 [facility] Laboratory - Hematology and Cell countsOrdered By: Lucila Coleman on 03-01-2022 Nucleated RBC/100 WBC (Bld) [Ratio] 0.1 % 0-0.5 [facility] Lymphocytes Auto (Bld) [#/Vo l]Ordered By: Lucila Coleman on 03-01-2022 Lymphocytes (Bld) [#/Vol] 1.4 10*3/uL 1.00-4.8 [facility] Lymphocytes/100 WBC Auto (Bl d)Ordered By: Lucila Coleman on 03-01-2022 Lymphocytes/100 WBC (Bld) 21.1 % . [facility] MCH Auto (RBC) [Entitic mass ]Ordered By: Lucila Coleman on 03-01-2022 MCH (RBC) [Entitic mass] 31.9 pg 27.5-35.2 [facility] MCHC Auto (RBC) [Mass/Vol]Or dered By: Lucila Coleman on 03-01-2022 MCHC (RBC) [Mass/Vol] 35.0 g/dL 32.5-35.6 [facility] MCV Auto (RBC) [Entitic vol] Ordered By: Lucila Coleman on 03-01-2022 MCV (RBC) [Entitic vol] 91.2 fL 83.5-101 [facility] Monocytes Auto (Bld) [#/Vol] Ordered By: Lucila Coleman on 03-01-2022 Monocytes (Bld) [#/Vol] 0.6 10*3/uL 0.0-0.8 [facility] Monocytes/100 WBC Auto (Bld) Ordered By: Lucila Coleman on 03-01-2022 Monocytes/100 WBC (Bld) 8.9 % . [facility] Neutrophils Auto (Bld) [#/Vo l]Ordered By: Lucila Coleman on 03-01-2022 Neutrophils (Bld) [#/Vol] 4.3 10*3/uL 1.8-7.7 [facility] Neutrophils/100 WBC Auto (Bl d)Ordered By: Lucila Coleman on 03-01-2022 Neutrophils/100 WBC (Bld) 66.9 % . [facility] No Panel InformationOrdered By: Lucila Coleman on 03-01-2022 Estimated GFR () > 60 mL/Min [facility] Comment on above: GFR estimated refere nce range: According to KDOQI guidelines, <60 ml/min/1.73m2 is sufficient to diagnose a patient with chronic kidney disease. Pharmacy Creatinine Clearance (Chem 104.57 [facility] Platelet mean volume Auto (B ld) [Entitic vol]Ordered By: Lucila Coleman on 03-01-2022 Platelet mean volume (Bld) [Entitic vol] 9.3 fL 6.6-10.1 [facility] Platelet poor plasma interna tional normalized ratio (INR) by coagulation assay (relatOrdered By: Lucila Coleman on 03-01-2022 INR Coag (PPP) [Relative time] 2.1 {INR} [facility] Comment on above: INR Therapeutic Rang e [...] 03-01-2022 Platelets (Bld) [#/Vol] 128 10*3/uL 150-450 [facility] Protein [Mass/volume] in Ser um or PlasmaOrdered By: Lucila Coleman on 03-01-2022 Protein [Mass/Vol] 5.8 g/dL 6.1-7.9 [facility] RBC Auto (Bld) [#/Vol]Ordere d By: Lucila Coleman on 03-01-2022 RBC (Bld) [#/Vol] 4.73 10*6/uL 3.90-5.60 [facility] Serum or plasma alanine rodriguez otransferase measurement without P-5'-P (enzymatic activiOrdered By: Lucila Coleman on 03-01-2022 ALT No additional P-5'-P [Catalytic activity/Vol] 30 U/L 10-60 [facility] Serum or plasma albumin/glob ulin mass ratioOrdered By: Lucila Coleman on 03-01-2022 Albumin/Globulin [Mass ratio] 1.3 {ratio} [facility] Serum or plasma alkaline kristal sphatase measurement (enzymatic activity/volume)Ordered By: Lucila Coleman on 03-01-2022 ALP [Catalytic activity/Vol] 74 U/L 32-92 [facility] Serum or plasma aspartate am inotransferase measurement (enzymatic activity/volume)Ordered By: Lucila Coleman on 03-01-2022 AST [Catalytic activity/Vol] 22 U/L 10-42 [facility] Serum or plasma calcium jose urement (mass/volume)Ordered By: Lucila Coleman on 03-01-2022 Calcium [Mass/Vol] 8.8 mg/dL 8.2-10.2 [facility] Serum or plasma chloride payal surement (moles/volume)Ordered By: Lucila Coleman on 03-01-2022 Chloride [Moles/Vol] 99 mmol/L 95-114 [facility] Serum or plasma glucose jose urement (mass/volume)Ordered By: Lucila Coleman on 03-01-2022 Glucose [Mass/Vol] 259 mg/dL 70-100 [facility] Comment on above: ADA recommended refe rence range Random Glucose Reference Range is dependent on time and content of last meal. Glucose of more than 200 mg/dL in a nonstressed, ambulatory subject supports the diagnosis of Diabetes Mellitus. Serum or plasma potassium me asurement (moles/volume)Ordered By: Lucila Coleman on 03-01-2022 Potassium [Moles/Vol] 3.4 mmol/L 3.5-5.1 [facility] Serum or plasma sodium measu rement (moles/volume)Ordered By: Lucila Coleman on 03-01-2022 Sodium [Moles/Vol] 140 mmol/L 136-146 [facility] Serum or plasma total biliru bin measurement (mass/volume)Ordered By: Lucila Coleman on 03-01-2022 Bilirubin [Mass/Vol] 0.6 mg/dL 0.3-1.2 [facility] Serum or plasma total carbon dioxide measurement (moles/volume)Ordered By: Lucila Coleman on 03-01-2022 CO2 [Moles/Vol] 28.6 mmol/L 22.0-30.0 [facility] Serum or plasma urea nitroge n measurement (mass/volume)Ordered By: Lucila Coleman on 03-01-2022 Urea nitrogen [Mass/Vol] 21 mg/dL 9- [facility] Troponin I.cardiac [Mass/vol ume] in Serum or Plasma by High sensitivity methodOrdered By: Lucila Coleman on 03-01-2022 Troponin I.cardiac High sensitivity method [Mass/Vol] 8 pg/mL 0-20 [facility] Prothrombin Time INRon 02-10 INR Coag (PPP) [Relative time] 2.4 {INR} [employer] Other Prothrombin Time INR [employer] Other Prothrombin Time INRon 01-13 INR Coag (PPP) [Relative time] 3.0 {INR} [employer] Other Prothrombin Time INR [employer] Other Prothrombin Time INRon 12-16 INR Coag (PPP) [Relative time] 2.7 {INR} [employer] Other Prothrombin Time INR [employer] Other Tobacco Screening.on 022 Adult depression screening assessment No [facility] [address] DO Work Phone: Tobacco use status [facility] b) No [facility] [address] DO Work Phone: Prothrombin Time INRon 11-19 INR Coag (PPP) [Relative time] 3.2 {INR} [employer] Other Prothrombin Time INR [employer] Other Prothrombin Time INRon 10-20 INR Coag (PPP) [Relative time] 1.7 {INR} [employer] Other Prothrombin Time INR [employer] Other Prothrombin Time INRon 09-22 INR Coag (PPP) [Relative time] 2.7 {INR} [employer] Other Pro[facility]rombin Time [facility] [employer] Other Prothrombin Time INRon 08-24 INR Coag (PPP) [Relative time] 2.9 {INR} [employer] Other Prothrombin Time INR [facility] [employer] Other Prothrombin Time INRon 07-22 INR Coag (PPP) [Relative time] 1.6 {INR} [employer] Other Prothrombin Time [facility]R [facility] [employer] Other Prothrombin Time INRon 07-15 INR Coag (PPP) [Relative time] 3.4 {INR} [employer] Other Prothrombin Time INR [facility] [employer] Other Prothrombin Time INRon 06-24 INR Coag (PPP) [Relative time] 3.5 {INR} [employer] Other Prothrombin Time INR [facility] [employer] Other Vital Signs Date Time Vital Sign Value Performing Clinician Facility 11-10-2023 13:54-0500 Body height 188 cm [facility] 11-10-2023 13:54-0500 Body mass index (BMI) [Ratio] 38.9 kg/m2 [facility] 11-10-2023 13:54-0500 Body weight 137.44 kg [facility] 11-10-2023 13:54-0500 Diastolic blood pressure 76 mm[Hg] [facility] 11-10-2023 13:54-0500 Heart rate 71 /min [facility] 11-10-2023 13:54-0500 Systolic blood pressure 102 mm[Hg] [facility] 12:00-0500 Body temperature 97.7 [degF] MD Gladys Garcia Work Phone: [facility] 10-30-2023 12:00-0500 Diastolic blood pressure 75 mm[Hg] MD Gladys Garcia Work Phone: [facility] 10-30-2023 12:00-0500 Heart rate 71 /min MD Gladys Garcia Work Phone: [facility] 10-30-2023 12:00-0500 Respiratory rate 18 /min MD Gladys Garcia Work Phone: [facility] 10-30-2023 12:00-0500 SaO2% (BldA) [Mass fraction] 97 % MD Gladys Garcia Work Phone: [facility] 10-30-2023 12:00-0500 Systolic blood pressure 110 mm[Hg] MD Gladys Garcia Work Phone: [facility] 10-30-2023 06:00-0500 Body weight 134.7 kg MD Gladys Garcia Work Phone: [facility] 10-28-2023 18:51-0500 Body height 187.96 cm MD Gladys Garcia Work Phone: [facility] 10-28-2023 18:51-0500 Body temperature 97.9 [degF] MD Gladys Garcia Work Phone: [facility] 10-28-2023 18:51-0500 Body weight 135.8 kg MD Gladys Garcia Work Phone: [facility] 10-28-2023 18:51-0500 Diastolic blood pressure 66 mm[Hg] MD Gladys Garcia Work Phone: [facility] 10-28-2023 18:51-0500 Heart rate 67 /min MD Gladys Garcia Work Phone: [facility] 10-28-2023 18:51-0500 Respiratory rate 18 /min MD Gladys Garcia Work Phone: [facility] 10-28-2023 18:51-0500 SaO2% (BldA) [Mass fraction] 95 % MD Gladys Garcia Work Phone: [facility] 10-28-2023 18:51-0500 Systolic blood pressure 98 mm[Hg] MD Gladys Garcia Work Phone: [facility] 10-28-2023 10:38-0500 Diastolic blood pressure 40 mm[Hg] [facility] 10-28-2023 10:38-0500 Systolic blood pressure 62 mm[Hg] [facility] 10-28-2023 10:37-0500 Body height 188 cm [facility] 10-28-2023 10:37-0500 Body mass index (BMI) [Ratio] 38.39 kg/m2 [facility] 10-28-2023 10:37-0500 Body weight 135.63 kg [facility] 10-28-2023 10:37-0500 Heart rate 121 /min [facility] 10-21-2023 08:26-0500 Body height [address] 10-21-2023 08:26-0500 Body mass index (BMI) [Ratio] 38.52 kg/m2 [address] 10-21-2023 08:26-0500 Body weight 136.[address] 10-21-2023 08:26-0500 Diastolic blood pressure 60 mm[Hg] [address] 10-21-2023 08:26-0500 Systolic blood pressure 108 mm[Hg] [address] 10-20-2023 12:45-0500 Body height 187.96 cm MD Gladys Garcia Work Phone: [facility] 10-20-2023 12:45-0500 Body weight 136 kg MD Gladys Garcia Work Phone: [facility] 10-18-2023 09:30-0500 Diastolic blood pressure 54 mm[Hg] Angel Griggs MD Work Phone: [facility] 10-18-2023 09:30-0500 Heart rate 107 /min Angel Griggs MD Work Phone: [facility] 10-18-2023 09:30-0500 Systolic blood pressure 98 mm[Hg] Angel Griggs MD Work Phone: [facility] 10-18-2023 09:29-0500 Body height 188 cm Angel Griggs MD Work Phone: [facility] 10-18-2023 09:29-0500 Body mass index (BMI) [Ratio] 38.52 kg/m2 Angel Griggs MD Work Phone: [facility] 10-18-2023 09:29-0500 Body weight 136.08 kg Angel Griggs MD Work Phone: [facility] 09-14-2023 21:10-0500 Diastolic blood pressure 82 mm[Hg] MD Gladys Garcia Work Phone: [facility] 09-14-2023 21:10-0500 Systolic blood pressure 168 mm[Hg] MD Gladys Garcia Work Phone: [facility] 09-14-2023 20:17-0500 Heart rate 103 /min MD Gladys Garcia Work Phone: [facility] 09-14-2023 20:15-0500 Respiratory rate 20 /min MD Gladys Garcia Work Phone: [facility] 09-14-2023 20:15-0500 SaO2% (BldA) [Mass fraction] 92 % MD Gladys Garcia Work Phone: [facility] 09-14-2023 19:47-0500 Body height 187.96 cm MD Gladys Garcia Work Phone: [facility] [facility] 09-14-2023 19:47-0500 Body temperature 98.6 [degF] MD Gladys Garcia Work Phone: [facility] 09-14-2023 19:47-0500 Body weight 138.9 kg MD Gladys Garcia Work Phone: [facility] 08-31-2023 16:04-0500 Body temperature 97.7 [degF] Lior Villeda MD Work Phone: [facility] 08-31-2023 16:04-0500 Diastolic blood pressure 63 mm[Hg] Lior Villeda MD Work Phone: [facility] 08-31-2023 16:04-0500 Heart rate 88 /min Lior Villeda MD Work Phone: [facility] 08-31-2023 16:04-0500 SaO2% (BldA) [Mass fraction] 91 % Lior Villeda MD Work Phone: [facility] 08-31-2023 16:04-0500 Systolic blood pressure 113 mm[Hg] Lior Villeda MD Work Phone: [facility] 08-31-2023 11:37-0500 Respiratory rate 20 /min Lior Villeda MD Work Phone: [facility] 08-29-2023 06:00-0500 Body height 188 cm Lior Villeda MD Work Phone: [facility] 08-29-2023 06:00-0500 Body mass index (BMI) [Ratio] 41.33 kg/m2 Lior Villeda MD Work Phone: [facility] 08-29-2023 06:00-0500 Body weight 146 kg Lior Villeda MD Work Phone: [facility] 07-12-2023 10:17-0400 Body height 188 cm Angel Griggs MD Work Phone: [facility] 07-12-2023 10:17-0400 Body mass index (BMI) [Ratio] 39.03 kg/m2 Angel Griggs MD Work Phone: [facility] 07-12-2023 10:17-0400 Body weight 137.89 kg Angel Griggs MD Work Phone: [facility] 07-12-2023 10:17-0400 Diastolic blood pressure 82 mm[Hg] Angel Griggs MD Work Phone: [facility] 07-12-2023 10:17-0400 Heart rate 83 /min Angel Griggs MD Work Phone: [facility] 07-12-2023 10:17-0400 Systolic blood pressure 108 mm[Hg] Angel Griggs MD Work Phone: [facility] 06-30-2023 07:28-0400 Body temperature 97.5 [degF] Lior Villeda MD Work Phone: [facility] 06-30-2023 07:28-0400 Diastolic blood pressure 83 mm[Hg] Lior Villeda MD Work Phone: [facility] 06-30-2023 07:28-0400 Heart rate 81 /min Lior Villeda MD Work Phone: [facility] 06-30-2023 07:28-0400 SaO2% (BldA) [Mass fraction] 90 % Lior Villeda MD Work Phone: [facility] 06-30-2023 07:28-0400 Systolic blood pressure 136 mm[Hg] Lior Villeda MD Work Phone: [facility] 06-30-2023 03:15-0400 Respiratory rate 18 /min Lior Villeda MD Work Phone: [facility] 06-29-2023 13:00-0400 Body height 188 cm Lior Villeda MD Work Phone: [facility] 06-29-2023 13:00-0400 Body mass index (BMI) [Ratio] 38.44 kg/m2 Lior Villeda MD Work Phone: [facility] 06-29-2023 13:00-0400 Body weight 135.8 kg Lior Villeda MD Work Phone: [facility] 05-24-2023 14:10-0400 Heart rate 101 /min Toby A Naderer Work Phone: PU-Qfgkzmwlxc-Smdg a Work Phone: 05-24-2023 14:04-0400 Body height 190.5 cm Toby A Naderer Work Phone: MM-Nqwsoloyvn-Ogsl a Work Phone: 05-24-2023 14:04-0400 Body mass index (BMI) [Ratio] 38.62 kg/m2 Toby A Naderer Work Phone: AY-Pueaxiohbw-Aomp a Work Phone: 05-24-2023 14:04-0400 Body surface area Derived from formula 2.64 m2 Toby A Naderer Work Phone: EV-Myrmivvwhl-Mzks a Work Phone: 05-24-2023 14:04-0400 Body weight 140.16 kg Toby A Naderer Work Phone: YN-Cfawamyimo-Veqr a Work Phone: 05-24-2023 14:04-0400 Diastolic blood pressure 60 mm[Hg] Toby A Naderer Work Phone: AK-Eyrdksvyoc-Jelk a Work Phone: 05-24-2023 14:04-0400 SaO2% (BldA) [Mass fraction] 97 % Toby A Naderer Work Phone: TZ-Xjwprumjdl-Utis a Work Phone: 05-24-2023 14:04-0400 Systolic blood pressure 108 mm[Hg] Toby A Naderer Work Phone: JQ-Hqraioqiik-Mpfy a Work Phone: 05-17-2023 09:40-0400 Diastolic blood pressure 86 mm[Hg] Toby A Naderer Work Phone: PN-Abzvcmghda-Nvkp a Work Phone: 05-17-2023 09:40-0400 Diastolic blood pressure 56 mm[Hg] Toby A Naderer Work Phone: NG-Qzxbtlfniv-Bwad a Work Phone: 05-17-2023 09:40-0400 Systolic blood pressure 124 mm[Hg] Toby A Naderer Work Phone: QN-Popaxkkkww-Rlue a Work Phone: 05-17-2023 09:40-0400 Systolic blood pressure 90 mm[Hg] Toby A Naderer Work Phone: ZJ-Leepwwkhej-Exzd a Work Phone: 05-17-2023 09:40-0400 90 1 Toby A Naderer Work Phone: BG-Shtzzwhgra-Kqfv a Work Phone: Comment on above: PUL[employer]St 05-17-2023 09:40-0400 91 1 Toby A Naderer Work Phone: RK-Knhweevvek-Lybe a Work Phone: Comment on above: PULRateSit 05-17-2023 09:39-0400 Body height 190.5 cm Toby A Naderer Work Phone: QX-Rpsbovksth-Dsrh a Work Phone: 05-17-2023 09:39-0400 Body mass index (BMI) [Ratio] 37.62 kg/m2 Toby A Naderer Work Phone: ID-Ntykgimbnp-Wqlw a Work Phone: 05-17-2023 09:39-0400 Body surface area Derived from formula 2.61 m2 Toby Allison Naderer Work Phone: NB-Bnzehzmaoi-Fivn a Work Phone: 05-17-2023 09:39-0400 Body weight 136.53 kg Toby Cooper Naderer Work Phone: KX-Kdpdobwhuf-Hyxc a Work Phone: 05-17-2023 09:39-0400 Diastolic blood pressure 86 mm[Hg] Toby Cooper Naderer Work Phone: EP-Nzfztufveu-Ffhu a Work Phone: 05-17-2023 09:39-0400 Heart rate 91 /min Toby Cooper Naderer Work Phone: UE-Gfowndyial-Sbvn a Work Phone: 05-17-2023 09:39-0400 Systolic blood pressure 124 mm[Hg] Toby Cooper Naderer Work Phone: IW-Bhmcqfwpgo-Lfgh a Work Phone: 04-04-2023 18:38-0400 Body temperature 98.2 [degF] MD Gladys Garcia Work Phone: [facility] 04-04-2023 18:38-0400 Diastolic blood pressure 62 mm[Hg] MD Gladys Garcia Work Phone: [facility] 04-04-2023 18:38-0400 Heart rate 67 /min MD Gladys Garcia Work Phone: [facility] 04-04-2023 18:38-0400 Respiratory rate 20 /min MD Gladys Garcia Work Phone: [facility] 04-04-2023 18:38-0400 SaO2% (BldA) [Mass fraction] 98 % MD Gladys Garcia Work Phone: [facility] 04-04-2023 18:38-0400 Systolic blood pressure 112 mm[Hg] MD Gladys Garcia Work Phone: [facility] 04-04-2023 12:57-0400 Body height 187.96 cm MD Gladys Garcia Work Phone: [facility] 04-04-2023 06:00-0400 Body weight 131.5 kg MD Gladys Garcia Work Phone: [facility] 04-03-2023 00:00-0400 45 1 Gladys Garcia Work Phone: [facility] DO Work Phone: Comment on above: [id number] 04-02-2023 12:30-0400 Diastolic blood pressure 73 mm[Hg] MD Gladys Garcia Work Phone: [facility] 04-02-2023 12:30-0400 Heart rate 86 /min MD Gladys Garcia Work Phone: [facility] 04-02-2023 12:30-0400 Respiratory rate 18 /min MD Gladys Garcia Work Phone: [facility] 04-02-2023 12:30-0400 SaO2% (BldA) [Mass fraction] 97 % MD Gladys Garcia Work Phone: [facility] 04-02-2023 12:30-0400 Systolic blood pressure 116 mm[Hg] MD Gladys Garcia Work Phone: [facility] 04-02-2023 09:46-0400 Body temperature 98.1 [degF] MD Gladys Garcia Work Phone: [facility] 04-02-2023 09:40-0400 Body height 187.96 cm MD Gladys Garcia Work Phone: [facility] 04-02-2023 09:40-0400 Body weight 132.9 kg MD Gladys Garcia Work Phone: [facility] 01-11-2023 09:56-0400 Diastolic blood pressure 78 mm[Hg] Gladys Garcia Work Phone: [facility] DO Work Phone: 01-11-2023 09:56-0400 Diastolic blood pressure 76 mm[Hg] Gladys Madsen Radha Work Phone: [facility] DO Work Phone: 01-11-2023 09:56-0400 Systolic blood pressure 110 mm[Hg] Gladys Schwartzight Work Phone: [facility] DO Work Phone: 01-11-2023 09:56-0400 Systolic blood pressure 106 mm[Hg] Gladys Schwartzight Work Phone: [facility] DO Work Phone: 01-11-2023 09:50-0400 Heart rate 87 /min Gladys Madsen Radha Work Phone: [facility] DO Work Phone: 01-11-2023 09:48-0400 Body height 190.5 cm Gladys Madsen Radha Work Phone: [facility] DO Work Phone: 01-11-2023 09:48-0400 Body mass index (BMI) [Ratio] 37 kg/m2 Gladys Schwartzight Work Phone: [facility] DO Work Phone: 01-11-2023 09:48-0400 Body surface area Derived from formula 2.59 m2 Gladys Schwartzight Work Phone: [facility] DO Work Phone: 01-11-2023 09:48-0400 Body weight 134.27 kg Gladys Garcia Work Phone: [facility] DO Work Phone: 12-15-2022 15:38-0400 Body temperature 97.7 [degF] MD Gladys Garcia Work Phone: [facility] 12-15-2022 15:38-0400 Diastolic blood pressure 87 mm[Hg] MD Gladys Garcia Work Phone: [facility] 12-15-2022 15:38-0400 Heart rate 91 /min MD Gladys Garcia Work Phone: [facility] 12-15-2022 15:38-0400 Respiratory rate 18 /min MD Gladys Garcia Work Phone: [facility] 12-15-2022 15:38-0400 SaO2% (BldA) [Mass fraction] 98 % MD Gladys Garcia Work Phone: [facility] 12-15-2022 15:38-0400 Systolic blood pressure 139 mm[Hg] MD Gladys Garcia Work Phone: [facility] 12-15-2022 15:34-0400 Body height 187.96 cm MD Gladys Garcia Work Phone: [facility] 12-15-2022 15:34-0400 Body weight 135.4 kg MD Gladys Garcia Work Phone: [facility] 07-17-2022 14:47-0400 59.2 1 Gladys Garcia Work Phone: [facility] DO Work Phone: Comment on above: FSLDL 07-12-2022 15:43-0400 Body height 190.5 cm Gladys Garcia Work Phone: [facility] DO Work Phone: 07-12-2022 15:43-0400 Body mass index (BMI) [Ratio] 38 kg/m2 Gladys Garcia Work Phone: [facility] DO Work Phone: 07-12-2022 15:43-0400 Body surface area Derived from formula 2.62 m2 Gladys Garcia Work Phone: [facility] DO Work Phone: 07-12-2022 15:43-0400 Body weight 137.89 kg Gladys Garcia Work Phone: [facility] DO Work Phone: 07-12-2022 15:43-0400 Diastolic blood pressure 78 mm[Hg] Gladys Garcia Work Phone: [facility] DO Work Phone: 07-12-2022 15:43-0400 Heart rate 94 /min Gladys Garcia Work Phone: [facility] DO Work Phone: 07-12-2022 15:43-0400 Systolic blood pressure 102 mm[Hg] Gladys Garcia Work Phone: [facility] DO Work Phone: 03-01-2022 21:27-0400 Diastolic blood pressure 90 mm[Hg] MD Gladys Garcia Work Phone: [facility] 03-01-2022 21:27-0400 Heart rate 84 /min MD Gldays Garcia Work Phone: [facility] 03-01-2022 21:27-0400 Respiratory rate 17 /min MD Gladys Garcia Work Phone: [facility] 03-01-2022 21:27-0400 SaO2% (BldA) [Mass fraction] 93 % MD Gladys Garcia Work Phone: [facility] 03-01-2022 21:27-0400 Systolic blood pressure 141 mm[Hg] MD Gladys Garcia Work Phone: [facility] 03-01-2022 19:14-0400 Body height 187.96 cm MD Gladys Garcia Work Phone: [facility] 03-01-2022 19:14-0400 Body mass index (BMI) [Ratio] 38.5 kg/m2 MD Gladys Garcia Work Phone: [facility] 03-01-2022 19:14-0400 Body temperature 97.8 [degF] MD Gladys Garcia Work Phone: [facility] 03-01-2022 19:14-0400 Body weight 136.07 kg MD Gladys Garcia Work Phone: [facility] 12-16-2021 09:59-0400 Body height 190.5 cm Gladys Garcia Work Phone: [facility] DO Work Phone: 12-16-2021 09:59-0400 Body mass index (BMI) [Ratio] 38.1 kg/m2 Gladys Garcia Work Phone: [facility] DO Work Phone: 12-16-2021 09:59-0400 Body surface area Derived from formula 2.62 m2 Gladys Garcia Work Phone: [facility] DO Work Phone: 12-16-2021 09:59-0400 Body weight 138.26 kg Gladys Garcia Work Phone: [facility] DO Work Phone: 12-16-2021 09:59-0400 Diastolic blood pressure 60 mm[Hg] Gladys Garcia Work Phone: [facility] DO Work Phone: 12-16-2021 09:59-0400 Heart rate 100 /min Gladys Garcia Work Phone: [facility] DO Work Phone: 12-16-2021 09:59-0400 Systolic blood pressure 102 mm[Hg] Gladys Garcia Work Phone: [facility] DO Work Phone: Encounters Encounter Date Encounter Type Care Provider Facility Start: 11-23-2023 End: 11-23-2023 ambulatory TOBY AMADOR Not Available Start: 11-22-2023 End: 11-22-2023 ambulatory Toby Amador Facility:[facility] Start: 11-22-2023 End: 11-22-2023 ambulatory PINEDA DIORBENJAMINLoretta Not Available Start: 11-10-2023 End: 11-10-2023 ambulatory [facility] Ambulatory Start: 11-10-2023 End: 11-10-2023 ambulatory HEATHER VERA Not Available Start: 11-10-2023 End: 11-10-2023 Professional / ancillary services management Monica Curran LPN [facility] Comment on above: History of NV (myoca rdial infarction); Paroxysmal atrial fibrillation (CMS/HCC) Start: 11-08-2023 End: 11-09-2023 ambulatory NATHAN AU [facility] Start: 11-08-2023 End: 11-08-2023 Subsequent hospital visit by physician Par Mac 3 Device Remote [facility] 3 Comment on above: Presence of automati c cardioverter/defibrillator (AICD); Ventricular tachycardia, nonsustained (CMS/HCC) Start: 11-01-2023 End: 11-02-2023 ambulatory LIOR VILLEDA [facility] Start: 11-01-2023 End: 11-01-2023 Subsequent hospital visit by physician Par Mac 3 Device [facility] 3 Comment on above: Ventricular tachycar duyen, nonsustained (CMS/HCC); Presence of automatic cardioverter/defibrillator (AICD) Start: 10-29-2023 End: 10-30-2023 Evaluation and management of inpatient Darcy Mischler Facility:[facility] Start: 10-29-2023 End: 10-30-2023 Evaluation and management of inpatient MD Gladys Garcia Work Phone: [facility] [place] [facility] Work Phone: Start: 10-28-2023 Non-patient / Non-visit MD Gladys Garcia Work Phone: [facility] Work Phone: Start: 10-28-2023 End: 10-30-2023 Evaluation and management of inpatient MD Gladys Garcia Work Phone: [facility] [place] [facility] Work Phone: Start: 10-28-2023 End: 10-30-2023 observation encounter MD Gladys Garcia Work Phone: [facility] Work Phone: Start: 10-28-2023 End: 10-28-2023 ambulatory [facility] Ambulatory Start: 10-28-2023 End: 10-28-2023 Professional / ancillary services management Monica Curran [facility] Comment on above: Paroxysmal atrial fi brillation with rapid ventricular response (CMS/HCC) Start: 10-21-2023 End: 10-22-2023 ambulatory [facility] Start: 10-21-2023 End: 10-21-2023 Subsequent hospital visit by physician Joaquina Winkler Echo/Vasc Room 2 [facility] Comment on above: Dyspnea on exertion; Ischemic cardiomyopathy Start: 10-20-2023 End: 10-20-2023 ambulatory [facility] Facility:[facility] Start: 10-20-2023 End: 10-20-2023 Admission to same day surgery center MD Gladys Garcia Work Phone: [facility]-Procedure Outpatient Work Phone: Start: 10-20-2023 End: 10-20-2023 ambulatory MD Gladys Garcia Work Phone: [facility] Work Phone: Start: 10-19-2023 End: 10-20-2023 ambulatory [facility] Start: 10-19-2023 End: 10-19-2023 Subsequent hospital visit by physician Osito Sharma [address] [facility] 3 Comment on above: Ventricular tachycar duyen, nonsustained (CMS/HCC); Presence of automatic cardioverter/defibrillator (AICD) Start: 10-18-2023 End: 10-18-2023 ambulatory ANGEL GRIGGS [facility] Ambulatory Start: 10-18-2023 End: 10-18-2023 Office outpatient visit 40 minutes Angel Griggs MD Work Phone: 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 Start: 09-26-2023 End: 09-26-2023 ambulatory TOBY AMADOR Not Available Start: 09-21-2023 End: 09-22-2023 ambulatory [facility] Start: 09-21-2023 End: 09-21-2023 Subsequent hospital visit by physician Osito Briseno [employer] [facility] Comment on above: Arrived Start: 09-14-2023 End: 09-14-2023 Emergency department patient visit José Luis Coleman Facility:[facility] Start: 09-14-2023 End: 09-14-2023 Emergency department patient visit MD Gladys Garcia Work Phone: [facility] Work Phone: Start: 09-14-2023 End: 09-14-2023 ambulatory MARIELENA RESTREPO Not Available Start: 09-01-2023 End: 09-01-2023 ambulatory Farnaz Collazo Other [facility] Other Start: 09-01-2023 Telephone encounter Farnaz [facility] Start: 08-29-2023 End: 08-31-2023 ambulatory LIOR VILLEDA [facility] Start: 08-29-2023 End: 08-31-2023 Evaluation and management of inpatient Lior Villeda MD Work Phone: [facility] 8 Comment on above: Atrial fibrillation (CMS/HCC) (Primary Dx); Ischemic cardiomyopathy Start: 08-22-2023 End: 08-23-2023 ambulatory Angel Griggs Facility:[facility] Start: 08-22-2023 End: 08-22-2023 ambulatory MD Gladys Garcia Work Phone: [facility] Work Phone: Start: 08-22-2023 End: 08-22-2023 Discharged Recurring MD Gladys Garcia Work Phone: [facility] Work Phone: Start: 08-22-2023 Registered Recurring MD Gladys lemons Work Phone: [facility] Work Phone: Start: 08-09-2023 End: 08-10-2023 ambulatory TOBY AMADOR [facility] Start: 08-09-2023 End: 08-09-2023 Subsequent hospital visit by physician Santo Au [facility] 3 Comment on above: Presence of automati c cardioverter/defibrillator (AICD); Ventricular tachycardia, nonsustained (CMS/HCC) Start: 08-03-2023 ([facility] R A/c) [facility] Re peat A/C Jama Lopez [facility] Start: 08-03-2023 End: 08-03-2023 ambulatory Jama Lopez Other [facility] Other Start: 07-18-2023 End: 07-19-2023 ambulatory [facility] Start: 07-18-2023 End: 07-18-2023 Subsequent hospital visit by physician Osito Mac 3 Device Remote [facility] 3 Comment on above: Presence of automati c cardioverter/defibrillator (AICD); Ventricular tachycardia, nonsustained (CMS/HCC) Start: 07-13-2023 End: 07-13-2023 ambulatory [facility] Start: 07-12-2023 End: 07-12-2023 ambulatory [facility] Ambulatory Start: 07-12-2023 End: 07-12-2023 Office outpatient visit 25 minutes Angel Griggs MD Work Phone: [facility] Comment on above: Paroxysmal atrial fi brillation (CMS/HCC); 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; History of PTCA; History of NV (myocardial infarction); Ischemic cardiomyopathy; Ventricular tachycardia, nonsustained (CMS/HCC); S/P implantation of automatic cardioverter/defibrillator (AICD); Essential hypertension; Hyperlipidemia, unspecified hyperlipidemia type; Orthostatic hypotension Start: 07-12-2023 End: 07-12-2023 Subsequent hospital visit by physician Osito Mac 3 Device [facility] 3 Comment on above: Primary cardiomyopat hy (CMS/HCC) Start: 07-08-2023 End: 07-09-[address] [facility] Ambulatory Start: 07-07-2023 End: 07-08-2023 [facility] Start: 07-06-2023 ([facility] R A/c) [facility] Re peat A/C Farnaz Collazo [facility] Start: 07-06-2023 End: 07-06-2023 ambulatory Farnaz Collazo Other [facility] Other Start: 06-30-2023 End: 06-30-2023 ambulatory Farnaz Collazo Other [facility] Other Start: 06-30-2023 Telephone encounter Farnaz wheeler [facility] Start: 06-29-2023 End: 06-30-2023 Subsequent hospital visit by physician Lior Villeda MD Work Phone: [facility] 8 Comment on above: S/P implantation of automatic cardioverter/defibrillator (AICD) (Primary Dx); Ischemic cardiomyopathy; Paroxysmal atrial fibrillation (CMS/HCC); Ventricular tachycardia, nonsustained (CMS/HCC) Start: 06-20-2023 ([facility] R A/c) [facility] Re peat A/C Yun [facility] Start: 06-20-2023 End: 06-20-2023 ambulatory Yun Jessica Other [facility] Other Start: 06-10-2023 End: 06-10-2023 ambulatory Farnaz Collazo Other [facility] Other Start: 06-10-2023 Telephone encounter Farnaz wheeler [facility] Start: 06-06-2023 ([facility] R A/c) [facility] Re peat A/C Yun [facility] Start: 06-06-2023 End: 06-06-2023 ambulatory Yun Sanner Other [facility] Other Start: 05-25-2023 ([facility] R A/c) [facility] Re peat A/C Yun [facility] Start: 05-25-2023 End: 05-25-2023 ambulatory Yun Sanner Other [facility] Other Start: 05-25-2023 Telephone encounter Farnaz wheeler [facility] Start: 05-24-2023 Office outpatient ne w 60 minutes Toby Amador Work Phone: [facility] Work Phone: Start: 05-24-[address] Toby hernandez Oscarbraulio Facility:[id number] Start: 05-17-2023 Patient encounter procedure Toby Quachjensen Work Phone: [facility] Work Phone: Start: 05-17-[address] Gladys Garcia Facility: Start: 05-12-2023 ([facility] R A/c) [facility] Re peat A/C Tabitha [facility] Start: 05-12-2023 End: 05-12-2023 ambulatory Tabitha Colin Other [facility] Other Start: 05-10-2023 Chart Update Gladys Garcia Work Phone: [facility] DO Work Phone: Start: 05-09-2023 ambulatory Ortizmaria c Jonesim Facility :[id number] Start: 05-02-2023 ([facility] R A/c) [facility] Re peat A/C Tabitha [facility] Start: 05-02-2023 End: 05-02-[address] Gladys Garcia [employer] Other Start: 04-20-2023 Telephone encounter Gladys Acosta Work Phone: [facility] DO Work Phone: Start: 04-18-2023 Rx Renewal Gladys Garcia Work Phone: [facility] DO Work Phone: Start: 04-18-2023 ([facility] R A/c) [facility] Re peat A/C Tabitha [place] [facility] Start: 04-18-2023 End: 04-18-2023 ambulatory Tabitha [place] Other [facility] Other Start: 04-06-2023 Telephone encounter Gladys Acosta ht Work Phone: -[facility] DO Work Phone: Start: 04-04-[address] Gladys Garcia Facility:[id number] Start: 04-03-[address] Gladys Garcia Facility:[id number] Start: 04-02-2023 End: 04-04-2023 ambulatory [place] Em Facility:[facility] Start: 04-02-2023 End: 04-04-2023 Evaluation and management of inpatient MD Gladys Garcia Work Phone: [facility] [place] [facility] Work Phone: Start: 04-02-2023 End: 04-04-2023 observation encounter MD Gladys Garcia Work Phone: [facility] Work Phone: Start: 03-14-2023 Registered Recurring MD Gladys lemons Work Phone: [facility] Work Phone: Start: 03-14-2023 ([facility] R A/c) [facility] Re peat A/C Jama Lopez [facility] Start: 03-14-2023 End: 03-14-2023 ambulatory Jama Lopez Other [employer] Other Start: 02-16-2023 ([facility] R A/c) [facility] Re peat A/C Tabitha [place] [facility] Start: 02-16-2023 End: 02-16-2023 ambulatory Tabitha [place] Other [employer] Other Start: 01-25-2023 ([facility] R A/c) [facility] Re peat A/C Tabitha Colin [facility] Start: 01-25-2023 End: 01-25-2023 ambulatory Tabitha [place] Other [employer] Other Start: 01-19-2023 End: 01-20-2023 ambulatory GLADYS GARCIA Facility:[facility] Start: 01-13-2023 ([facility] R A/c) [facility] Re peat A/C Tabitha [facility] Start: 01-13-2023 End: 01-13-2023 ambulatory Tabitha Shaw Other [employer] Other Start: 01-11-[address] Angel Griggs Facility: Start: 01-11-2023 Office outpatient vi sit 25 minutes Gladys Garcia Work Phone: [facility] DO Work Phone: Start: 12-30-2022 ([facility] R A/c) [facility] Re peat A/C Jama Hernandezfabian [facility] Start: 12-30-2022 End: 12-30-2022 ambulatory Yun Sanfabian Other [facility] [email or web address] Other Start: 12-27-2022 Encounter for genera l adult medical examination without abnormal findings DR GLADYS GARCIA . [facility] Start: 12-23-2022 ([facility] R A/c) [facility] Re peat A/C Tabitha [facility] Start: 12-23-2022 End: 12-24-2022 Encounter for general adult medical examination without abnormal findings DR GLADYS GARCIA . Facility: Start: 12-23-2022 End: 12-24-[address] GLADYS GARCIA . [facility] [email or web address] Other Start: 12-22-2022 End: 12-22-2022 ambulatory Pineda Bustos Facility:[facility] Start: 12-22-2022 End: 12-22-2022 ambulatory MD Gladys Garcia Work Phone: [facility] Work Phone: Start: 12-22-2022 End: 12-22-2022 Departed Referred MD Gladys Garcia Work Phone: [facility] [place] Work Phone: Start: 12-22-2022 End: 12-23-2022 ambulatory GLADYS GARCIA Facility:[facility] Start: 12-15-2022 End: 12-15-2022 Emergency department patient visit Nimo Fu Facility:[facility] Start: 12-15-2022 End: 12-15-2022 Emergency department patient visit MD Gladys Garcia Work Phone: [facility] Work Phone: Start: 12-15-2022 Registered Recurring MD Gladys lemons Work Phone: [facility] Work Phone: Start: 12-15-2022 ([facility] R A/c) [facility] Re peat A/C Jama [facility] Start: 12-15-2022 End: 12-15-2022 ambulatory Farnaz Collazo Other [employer] Other Start: 12-15-2022 Telephone encounter Farnaz Collazo [facility] Start: 12-08-2022 Rx Renewal Gladys Garcia Work Phone: [facility] DO Work Phone: Start: 12-02-2022 ([facility] R A/c) [facility] Re peat A/C Jama [facility] Start: 12-02-2022 End: 12-02-2022 ambulatory GLADYS GARCIA [facility] [email or web address] Other Start: 11-01-2022 ([facility] R A/c) [facility] Re peat A/C Tabitha Shaw [facility] Start: 11-01-2022 End: 11-01-2022 ambulatory Tabitha Shaw Other [employer] Other Start: 10-04-2022 ([facility] R A/c) [facility] Re peat A/C Ugo Connelly [facility] Start: 10-04-2022 End: 10-04-2022 ambulatory Ugo Connelly Other Acquisio [facility] [email or web address] Other Start: 09-27-2022 End: 09-27-2022 ambulatory Farnaz Collazo Other [employer] Other Start: 09-27-2022 Telephone encounter Farnaz Billylexy [facility] Start: 08-05-2022 Patient encounter procedure Gladys Garcia Work Phone: [facility] DO Work Phone: Start: 07-26-2022 Telephone encounter Gladys apple Work Phone: [facility] DO Work Phone: Start: 07-26-2022 ([facility] R A/c) [facility] Re peat A/C Farnaz Collazo [facility] Start: 07-26-2022 End: 07-26-2022 ambulatory Farnaz Collazo Other Acquisio [facility] [email or web address] Other Start: 07-17-2022 End: 07-18-[address] ANGEL GRIGGS Facility: Start: 07-12-2022 Office outpatient vi sit 40 minutes Gladys Garcia Work Phone: [facility] DO Work Phone: Start: 06-22-2022 Rx Renewal Gladys Garcia Work Phone: [facility] DO Work Phone: Start: 06-21-2022 ([facility] R A/c) [facility] Re peat A/C Farnaz Fitt [facility] Start: 06-21-2022 End: 06-21-2022 ambulatory Farnaz Fitt Other [employer] Other Start: 06-21-2022 Telephone encounter Farnaz [place] [facility] Start: 05-17-2022 ([facility] R A/c) [facility] Re peat A/C Farnaz Fitt [facility] Start: 05-17-2022 End: 05-17-2022 ambulatory Farnaz Fitt Other [employer] Other Start: 05-10-2022 End: 05-10-2022 Departed Referred MD Gladys Garcia Work Phone: [facility] [place] Start: 04-25-[address] GLADYS GARCIA . Facil ity:H1 Start: 04-07-2022 ([facility] R A/c) [facility] Re peat A/C Farnaz Fitt [facility] Start: 04-07-2022 End: 04-07-2022 ambulatory Farnaz Fitt Other [employer] Other Start: 03-24-2022 Rx Renewal Gladys Garcia Work Phone: [facility] DO Work Phone: Start: 03-12-2022 End: 03-13-[address] GLADYS GARCIA . Facility:[facility]1 Start: 03-10-2022 ([facility] R A/c) [facility] Re peat A/C Farnaz Fitt [facility] Start: 03-10-2022 End: 03-10-2022 ambulatory Farnaz Fitt Other [employer] Other Start: 03-01-2022 End: 03-01-2022 Emergency department patient visit MD Gladys Garcia Work Phone: [facility] Start: 02-10-2022 ([facility] R A/c) [facility] Re peat A/C Farnaz Fitt [facility] Start: 02-10-2022 End: 02-10-2022 ambulatory Farnaz Fitt Other [employer] Other Start: 01-13-2022 ([facility] R A/c) [facility] Re peat A/C Farnaz Fitt [facility] Start: 01-13-2022 End: 01-13-2022 ambulatory Farnaz Fitt Other [employer] Other Start: 12-16-2021 ([facility] R A/c) [facility] Re peat A/C Farnaz Fitt [facility] Start: 12-16-2021 End: 12-16-2021 ambulatory Farnaz Fitt Other [employer] Other Start: 12-16-2021 Office outpatient vi sit 25 minutes Gladys E Garcia Work Phone: [facility] DO Work Phone: Start: 11-19-2021 ([facility] R A/c) [facility] Re peat A/C Farnaz Fitt [facility] Start: 11-19-2021 End: 11-19-2021 ambulatory Farnaz Fitt Other [employer] Other Start: 10-20-2021 ([facility] R A/c) [facility] Re peat A/C Farnaz Fitt [facility] Start: 10-20-2021 End: 10-20-2021 ambulatory Farnaz Fitt Other [employer] Other Start: 09-22-2021 ([facility] R A/c) [facility] Re peat A/C Farnaz Fitt [facility] Start: 09-22-2021 End: 09-22-2021 ambulatory Farnaz Fitt Other [employer] Other Start: 08-24-2021 ([facility] R A/c) [facility] Re peat A/C Farnaz Fitt [facility] Start: 08-24-2021 End: 08-24-2021 ambulatory Farnaz Fitt Other [employer] Other Start: 08-05-2021 End: 08-05-2021 ambulatory Farnaz Fitt Other [employer] Other Start: 08-05-2021 Telephone encounter Farnaz Billyt Myah [facility] Start: 07-22-2021 ([facility] R A/c) [facility] Re peat A/C Farnaz Fitt [facility] Start: 07-22-2021 End: 07-22-2021 ambulatory Farnaz Fitt Other [employer] Other Start: 07-15-2021 ([facility] R A/c) [facility] Re peat A/C Farnaz Fitt [facility] Start: 07-15-2021 Telephone encounter Farnaz Billyt Myah [facility] Start: 06-24-2021 ([facility] R A/c) [facility] Re peat A/C Farnaz Fitt [facility] Procedures Date Procedure Procedure Detail Performing Clinician Start: 11-08-2023 CARDIAC DEVICE CHECK - REMOTE LIOR VILLEDA Start: 11-01-2023 CARDIAC DEVICE CHECK CHECK - REMOTE ALERT LIOR VILLEDA Start: 11-01-2023 CARDIAC DEVICE CHECK CHECK - REMOTE ALERT Lior Villeda MD Work Phone: Start: 10-28-2023 ECG 12-LEAD [facility]BY [facility] Start: 10-28-2023 Plain chest X-ray MD Sharif Garcia Work Phone: Start: 10-21-2023 TRANSTHORACIC ECHO ( TTE) LIMITED ANGEL GRIGGS Start: 10-21-2023 Echo transthorc r-t 2d w/wo m-mode rec f-up/lmtd Angel Griggs MD Work Phone: Start: 10-19-2023 CARDIAC DEVICE CHECK - REMOTE LIOR VILLEDA Start: 10-18-2023 ECG 12-LEAD [facility]BY [facility] Start: 10-18-2023 FOLLOW UP IN CARDIOLOGY TOBY AMADOR Start: 10-18-2023 Ecg routine ecg w/le ast 12 lds w/i&r Angel Griggs MD Work Phone: Start: 09-21-2023 ECG 12-LEAD LIOR SILVERIO Start: 09-21-2023 Ecg routine ecg w/le ast 12 lds trcg only w/o i&r Lior Villeda MD Work Phone: Start: 09-14-2023 Plain chest X-ray MD Sharif Garcia Work Phone: Start: 08-31-2023 DISCHARGE PATIENT JOSEFINA SPEARS VILLEDA Start: 08-31-2023 Glucose [Mass/volume ] in Serum or Plasma LIOR VILLEDA Start: 08-31-2023 Glucose quantitative blood xcpt reagent strip Lior Villeda MD Work Phone: Start: 08-31-2023 INITIATE OBSERVATION STATUS LIOR VILLEDA Start: 08-31-2023 Glucose [Mass/volume ] in Serum or Plasma LIOR VILLEDA Start: 08-31-2023 Glucose quantitative blood xcpt reagent strip Lior Villeda MD Work Phone: Start: 08-31-2023 Glucose [Mass/volume ] in Serum or Plasma LIOR VILLEDA Start: 08-31-2023 Glucose quantitative blood xcpt reagent strip Lior Villeda MD Work Phone: Start: 08-30-2023 Glucose [Mass/volume ] in Serum or Plasma LIOR VILLEDA Start: 08-30-2023 Glucose quantitative blood xcpt reagent strip Lior Villeda MD Work Phone: Start: 08-30-2023 Glucose [Mass/volume ] in Serum or Plasma LIOR VILLEDA Start: 08-30-2023 XR CHEST 1 VIEW MIGUEL A VILLEDA Start: 08-30-2023 Glucose quantitative blood xcpt reagent strip Lior Villeda MD Work Phone: Start: 08-30-2023 INSERT URETHRAL CATHETER LIOR VILLEDA Start: 08-30-2023 Glucose [Mass/volume ] in Serum or Plasma LIOR VILLEDA Start: 08-30-2023 Radiologic exam ches t single view Nathan Au DO Work Phone: Start: 08-30-2023 ECG 12-LEAD LIOR SILVERIO Start: 08-30-2023 Glucose quantitative blood xcpt reagent strip Lior Villeda MD Work Phone: Start: 08-30-2023 Ecg routine ecg w/le ast 12 lds trcg only w/o i&r Lior Villeda MD Work Phone: Start: 08-30-2023 INITIATE EXTENDED RECOVERY LIOR VILLEDA Start: 08-30-2023 Glucose [Mass/volume ] in Serum or Plasma LIOR VILLEDA Start: 08-30-2023 Glucose quantitative blood xcpt reagent strip Lior Villeda MD Work Phone: Start: 08-29-2023 IP CONSULT TO RESPIR ATORY CARE LIOR VILLEDA Start: 08-29-2023 OCONNOR CATHETER - DISCONTINUE LIOR VILLEDA Start: 08-29-2023 REASON FOR NO DVT PROPHYLAXIS - HOSPITAL ADMISSION - MEDICATIONS LIOR VILLEDA Start: 08-29-2023 ECG 12-LEAD LIOR SILVERIO Start: 08-29-2023 HEIGHT AND WEIGHT JOSEFINA VILLEDA Start: 08-29-2023 TELEMETRY MONITORING KAMI VILLEDA Start: 08-29-2023 Glucose quantitative blood xcpt reagent strip Lior Villeda MD Work Phone: Start: 08-29-2023 FULL CODE LIOR SILVERIO Start: 08-29-2023 MEASURE HEIGHT LIOR VILLEDA Start: 08-29-2023 REASON FOR NO DVT PROPHYLAXIS - HOSPITAL ADMISSION - MEDICATIONS LIRO VILLEDA Start: 08-29-2023 WEIGH PATIENT LIOR VILLEDA Start: 08-29-2023 ADMIT TO INPATIENT KELLY VILLEDA Start: 08-29-2023 POSTPROCEDURE LEVEL OF CARE CHANGE LIOR VILLEDA Start: 08-29-2023 DISCHARGE INSTRUCTIONS LIOR VILLEDA Start: 08-29-2023 FOLLOW UP WITH PROVIDER LIOR RONAL Start: 08-29-2023 ADULT DISCHARGE DIET KAMI VILLEDA Start: 08-29-2023 DISCHARGE ACTIVITY KELLY VILLEDA Start: 08-29-2023 NOTIFY PROVIDER (DO NOT PROMPT FOR PARAMETERS) LIOR JOLLYIN Start: 08-29-2023 ELECTROPHYSIOLOGY PROCEDURE LIOR JAIN Start: 08-29-2023 Electrophysiology study Lior Villeda MD Work Phone: Start: 08-29-2023 ACTIVATED CLOTTING TIME LOW LIOR JOLLYIN Start: 08-29-2023 TRANSESOPHAGEAL ECHO (CLEO) LIORPEYTON VILLEDA Start: 08-29-2023 ACTIVATED CLOTTING TIME LOW LIOR RONAL Start: 08-29-2023 Echo transesophag r- t 2d w/prb img acquisj i&r Lior Villeda MD Work Phone: Start: 08-29-2023 PROTIME-INR LIOR SILVERIO Start: 08-29-2023 Glucose [Mass/volume ] in Serum or Plasma LIOR VILLEDA Start: 08-29-2023 End: 08-29-2023 Prothrombin time Lior Villeda MD Work Phone: Start: 08-09-2023 Basic metabolic 2000 panel - Serum or Plasma TOBY AMADOR Start: 08-09-2023 CBC panel - Blood by Automated count TOBY QUACHR Start: 08-09-2023 PROTIME-INR TOBY CHAVEZ ER Start: 08-09-2023 CARDIAC DEVICE CHECK - IN CLINIC LIOR VILLEDA Start: 07-20-2023 CARDIAC DEVICE CHECK - REMOTE LIOR VILLEDA Start: 07-14-2023 CARDIAC DEVICE CHECK CHECK - REMOTE LIOR VILLEDA Start: 07-12-2023 ECG 12-LEAD TOBY CHAVEZ ER Start: 07-12-2023 Ecg routine ecg w/le ast 12 lds w/i&r Angel Griggs MD Work Phone: Start: 06-30-2023 Glucose quantitative blood xcpt reagent strip Lior Villeda MD Work Phone: Start: 06-30-2023 LAVENDER TOP Lior silverio MD Work Phone: Start: 06-30-2023 SST TOP Lior silverio MD Work Phone: Start: 06-30-2023 Radiologic exam ches t 2 views Lorene Grant Janeen ANIMAL NUTRITIONIST-HAND POTTER Work Phone: Start: 06-30-2023 Prothrombin time Whitne y B Janeen ANIMAL NUTRITIONIST-HAND POTTER Work Phone: Start: 06-29-2023 Glucose quantitative blood xcpt reagent strip Lior Villeda MD Work Phone: Start: 06-29-2023 Electrophysiology study Lior Villeda MD Work Phone: Start: 06-29-2023 End: 06-29-2023 Prothrombin time Lorene Juanita Janeen ANIMAL NUTRITIONIST-HAND POTTER Work Phone: Start: 06-12-2023 History of percutane ous transluminal coronary angioplasty History of PTCA Lior Villeda MD Work Phone: Start: 04-03-2023 Doppler ultrasonogra phy of bilateral carotid arteries MD Gladys Garcia Work Phone: Start: 04-02-2023 Plain chest X-ray MD Sharif Garcia Work Phone: Start: 12-23-[address] ANGEL GRIGGS Comment on above: Performed By: #### C RP, PREALB #### [facility] [address] [place] [address] Dr. Rayshawn Clark Start: 03-01-2022 Plain chest X-ray MD Sharif Garcia Work Phone: Aerobic microbial culture MD Gladys Garcia Work Phone: Amputation of toe Gladys Acosta Work Phone: Cardiac catheterization Gladys Garcia Work Phone: Colonoscopy Gladys Garcia Work Phone: Comment on above: [id number]; History of percutane ous transluminal coronary angioplasty History of PTCA Gladys Garcia Work Phone: History of percutane ous transluminal coronary angioplasty History of PTCA Angel Griggs MD Work Phone: History of percutane ous transluminal coronary angioplasty History of PTCA 1 MD Gladys Garcia Work Phone: Procedure on neck Gladys Cale Dave Work Phone: Comment on above: disectomy; Plan of Treatment Date Care Activity Detail Author Start: 04-12-2024 End: 04-12-2024 Patient encounter procedure 04/12/2024 9:50 AM EDT Office Visit [address] [address] Angel Griggs MD [address] [facility] [address], [address] [place] [address] [facility] Start: 12-16-2023 End: 12-16-2023 Patient encounter procedure 12/16/2023 2:30 PM EDT Office Visit [facility] 3 [address] [facility] [address] [place] [phone] Lior Villeda MD [address] [facility] [address] [place] [address] [facility] Start: 11-10-2023 End: 11-10-2023 Professional / ancillary services management 11/10/2023 1:00 PM EST Ancillary Procedure [address] [address] [facility] Start: 10-30-2023 [facility] Start: 10-28-2023 Hospital admission [facility] Start: 10-28-2023 Referral to photoresist printer [facility] Start: 10-28-2023 [facility] Start: 10-20-2023 [facility] Start: 10-20-2023 [facility] Start: 10-18-2023 End: 10-18-2025 Cardioversion External Cardioversion External Cardiac Services Routine Paroxysmal atrial fibrillation (CMS/HCC) Expected: 10/18/2023 (Approximate), Expires: 10/18/2025 [facility] Service Area Work Phone: Comment on above: Expected: 10/18/2023 (Approximate), Expi res: 10/18/2025 Start: 10-18-2023 End: 10-18-2023 Patient encounter procedure 10/18/2023 9:30 AM EST Office Visit [facility] [address] [facility] [address] [place] [address] Angel Griggs MD [address] [facility] [address] [place] [address] [facility] Start: 10-13-2023 End: 10-13-2023 Patient encounter procedure 10/13/2023 10:30 AM EST Office Visit [place] [id number] [facility] [address] [place] [address] Lior Vilelda MD [address] [facility] [address] [place] [address] [facility] Start: 08-29-2023 ABLATION, Provider: [facility] 3,MG CARD, Status: Pen, Time: 7:30 AM ABLATION, Provider: [facility],MG CARD, Status: Pen, Time: 7:30 AM [facility] Work Phone: Start: 08-29-2023 End: 08-29-2023 Admission to same day surgery center [facility] Comment on above: Ablation A-Fib Persistant Start: 08-29-2023 Subsequent hospital visit by physician [facility] Comment on above: Atrial fibrillation (CMS/HCC) Start: 08-20-2023 DTaP/Tdap/Td Vaccines (2 - Td or Tdap) DTaP/Tdap/Td Vaccines (2 - Td or Tdap) [facility] Start: 07-21-2023 Glaucoma screening Diabetes: Retinopathy Screening [facility] Start: 07-12-2023 FUV, Provider: Angel Griggs, Status: Pen, Time: 9:40 AM FUV, Provider: Angel Griggs, Status: Pen, Time: 9:40 AM [facility] DO Work Phone: Start: 07-12-2023 End: 07-12-2023 Patient encounter procedure 07/12/2023 9:40 AM EDT Office Visit [facility] [address] [facility] [address] [place] [address] Angel Griggs MD [address] [facility] [address] [place] [address] [facility] Start: 07-10-2023 Orders Only 07/10/2023 Orders Only [facility] [id number] [place] [address] Scanning, Generic Provider [facility] Start: 07-07-2023 End: 07-07-2023 Clinical Support 07/07/2023 1:00 PM EDT Clinical Support [facility] [address] [place] [address] 3 [facility] [address] [place] [phone] [facility] Start: 05-30-2023 NPVRFRL, Provider: Majo Jimenez, Status: Pen, Time: 10:20 AM NPVRFRL, Provider: Majo Jimenez, Status: Pen, Time: 10:20 AM [id number] Work Phone: Start: 05-20-2023 COVID-19 Vaccine ( season) COVID-19 Vaccine ( season) [facility] Start: 05-20-2023 Influenza vaccination Influenza Vaccine (#1) [facility] Start: 05-17-2023 EKG, Provider: ASHA DECKER SELLING UNDERWRITER 1,[id number], Status: Pen, Time: 9:30 AM EKG, Provider: ASHA DECKER SELLING UNDERWRITER 1,[id number], Status: Pen, Time: 9:30 AM [facility] DO Work Phone: Start: 05-05-2023 REST ONLY, Provider: PETERSON [facility]VI NUCLEAR 01,[id number], Status: Pen, Time: 10:30 AM REST ONLY, Provider: [facility]ERSON [facility]VI NUCLEAR 01,[id number], Status: Pen, Time: 10:30 AM [facility] DO Work Phone: Start: 05-04-2023 REST ONLY, Provider: PETERSON [facility]VI NUCLEAR 01,[id number], Status: Pen, Time: 10:30 AM REST ONLY, Provider: [facility]ERSON [facility] NUCLEAR 01,[id number], Status: Pen, Time: 10:30 AM [facility] DO Work Phone: Start: 05-02-2023 STRESSNUC2, Provider: PETERSON [facility]VI NUCLEAR 01,[id number], Status: Pen, Time: 11:30 AM STRESSNUC2, Provider: PETERSON [facility]VI NUCLEAR 01,[id number], Status: Pen, Time: 11:30 AM [facility] DO Work Phone: Start: 04-12-2023 [facility] Start: 04-11-2023 [facility] Start: 04-10-2023 [facility] Start: 04-09-2023 [facility] Start: 04-08-2023 [facility] Start: 04-07-2023 Blood chemistry [facility] Start: 04-07-2023 [facility] Start: 04-06-2023 Blood chemistry [facility] Start: 04-06-2023 [facility] Start: 04-05-2023 Blood chemistry [facility] Start: 04-05-2023 [facility] Start: 04-04-2023 [facility] Start: 04-02-2023 Referral to photoresist printer [facility] Start: 04-02-2023 Hospital admission [facility] Start: 04-02-2023 End: 04-02-2023 [facility] Start: 01-11-2023 FUV, Provider: Angel Griggs, Status: Pen, Time: 9:30 AM FUV, Provider: Angel Griggs, Status: Pen, Time: 9:30 AM -[facility] DO Work Phone: Start: 12-22-2022 Aerobic Culture Aerobic Culture [facility] Start: 12-22-2022 Anaerobic Culture Anaerobic Culture [facility] Start: 12-22-2022 Microscopic observation [Identifier] in Unspecified specimen by Gram stain [facility] Start: 08-05-2022 EVENT ROSELIA, Provider: ASHA DECKER SELLING UNDERWRITER 1,[id number], Status: Pen, Time: 3:00 PM EVENT ROSELIA, Provider: ASHA DECKER SELLING UNDERWRITER 1,[id number], Status: Pen, Time: 3:00 PM [facility] DO Work Phone: Start: 07-12-2022 FUV, Provider: Angel Griggs, Status: Pen, Time: 3:40 PM FUV, Provider: Angel Griggs, Status: Pen, Time: 3:40 PM -[facility] [address] DO Work Phone: Start: 06-29-2022 FUV, Provider: Angel Griggs, Status: Pen, Time: 10:20 AM FUV, Provider: Angel Griggs, Status: Pen, Time: 10:20 AM -[facility] DO Work Phone: Start: 05-17-2022 Registered Recurring Registered Recurring [facility] Start: 01-23-2021 COVID-19 Vaccine (3 - Booster for Nelson series) COVID-19 Vaccine (3 - Booster for Nelson series) [facility] Start: 2013 Zoster Vaccines (1 of 2) Zoster Vaccines (1 of 2) [facility] Start: 1982 Urine screening for protein Diabetes: Urine Protein Screening [facility] Start: 1981 Hepatitis C screening Hepatitis C Screening [facility] Start: 1973 Diabetic foot examination Diabetes: Foot Exam [facility] Start: 1973 Glaucoma screening Diabetes: Retinopathy [facility] [facility]: 1969 Pneumococcal Vaccine: Pediatrics (0 to 5 Years) and At-Risk Patients (6 to 64 Years) (1 - PCV) Pneumococcal Vaccine: Pediatrics (0 to 5 Years) and At-Risk Patients (6 to 64 Years) (1 - PCV) [facility] Start: 1964 MMR Vaccines (1 of 1 - Standard series) MMR Vaccines (1 of 1 - Standard series) [facility] Start: 1965 Hemoglobin A1c measurement Diabetes: Hemoglobin A1C [facility] Start: 1963 HIV screening HIV Screening [facility] Start: 1963 Lipid panel Lipid Panel [facility] Start: 1963 Screening for malignant neoplasm of colon [facility] Start: 1963 Thyroid stimulating hormone measurement TSH Level [facility] Start: 1963 Yearly Adult Physical Yearly Adult Physical [facility] Bacteria identified in Unspecified specimen by Aerobe culture [facility] Bacteria identified in Unspecified specimen by Anaerobe culture [facility] End: 08-09-2023 Cardiac device check - In Clinic [facility] Service Area Work Phone: Comment on above: Once for 1 Occurrences starting 08/09/20 until 08/09/2023 End: 07-13-2023 Cardiac device check - Remote [facility] Service Area Work Phone: Comment on above: Once for 1 Occurrences starting 07/13/20 until 07/13/2023 End: 07-18-2023 Cardiac Device Check - Remote [facility] Service Area Work Phone: Comment on above: Once for 1 Occurrences starting 07/18/20 until 07/18/2023 End: 10-19-2023 Cardiac Device Check - Remote [facility] Work Phone: Comment on above: Once for 1 Occurrences starting 10/19/19 until 10/19/2023 End: 11-08-2023 Cardiac Device Check - Remote [facility] Work Phone: Comment on above: Once for 1 Occurrences starting 11/08/19 until 11/08/2023 End: 08-29-2023 Continuous Pulse oximetry, In Phase 1 [facility] Work Phone: Comment on above: Continuous until discontinued starting 1 10/30/2022 ECG 12 Lead ECG 12 Lead ECG Routine As needed until discontinued starting 06/29/2023 [facility] Work Phone: Comment on above: As needed until discontinued starting ECG 12 Lead ECG 12 Lead ECG Routine 08/30/2023 11:[address] [facility] Work Phone: ECG 12 Lead ECG 12 Lead ECG Routine Paroxysmal atrial fibrillation with rapid ventricular response (CMS/HCC) 10/28/2023 10:[address] [facility] Work Phone: ECG 12 Lead ECG 12 Lead ECG Routine Paroxysmal atrial fibrillation (CMS/HCC) 11/10/2023 1:00 PM EST [facility] Work Phone: End: 08-30-2023 Electrocardiogram - Day of Discharge [facility] Work Phone: Comment on above: Once for 1 Occurrences starting 08/30/20 23 until 08/30/2023 End: 08-29-2023 Electrocardiogram, 12-lead PRN ACS symptoms [facility] Work Phone: Comment on above: As needed until discontinued starting Once for 1 Occurrenc es starting 08/29/2023 until 08/29/2023 Electrocardiogram, 12-lead PRN ACS symptoms Electrocardiogram, 12-lead PRN ACS symptoms ECG Routine As needed until discontinued starting 08/29/2023 [facility] Work Phone: Comment on above: As needed until discontinued starting 12 /07/2023 Electrophysiology study Electrop hysiology procedure Electrophysiology Routine Ischemic cardiomyopathy 06/29/2023 4:[address] [facility] Work Phone: End: 06-30-2023 Extra Tubes [facility] Area Work Phone: Comment on above: Once (Lab) for 1 Occurrences starting until 06/30/2023 Glucose [Mass/volume ] in Serum or Plasma POCT Glucose Point of Care Testing - Docked Device Routine As needed (Lab) until discontinued starting 06/29/2023 [facility] Work Phone: Comment on above: As needed (Lab) until discontinued start ing 06/29/2023 Glucose [Mass/volume ] in Serum or Plasma [facility] Work Phone: Comment on above: 4x daily - AC and at bedtime until disco ntinued starting 08/29/2023 As needed (Lab) unti l discontinued starting 08/29/2023 INR in Platelet poor plasma by Coagulation assay [facility] Lavender Top Lavender Top Lab Routine 06/30/2023 12:[address] [facility] Work Phone: Patient Education [facility] Work Phone: Patient referral [facility] Work Phone: Prothrombin time (PT) [facility] SST TOP SST TOP Lab Rout ine 06/30/2023 12:[address] [facility] Work Phone: End: 08-31-2023 Urethral Catheter Removal Urethral Catheter Removal Procedures Routine Once for 1 Occurrences starting 08/31/2023 until 08/31/2023 [facility] Work Phone: Comment on above: Once for 1 Occurrences starting 08/31/20 until 08/31/2023 Immunizations Immunization Date Immunization Notes Care Provider Karthikeyan lira 11-28-2020 Nelson COVID-19 Vac cine 0.5 ML Intramuscular Suspension Gladys Garcia Work Phone: [facility] DO Work Phone: 11-17-2020 Nelson COVID-19 Vac cine 0.5 ML Intramuscular Suspension Gladys Garcia Work Phone: [facility] 06-19-2020 influenza virus vacc ine, unspecified formulation Gladys Garcia Work Phone: [facility] [employer] DO Work Phone: 06-19-2020 influenza, seasonal, injectable Gladys Garcia Work Phone: [facility] Work Phone: 05-20-2019 influenza virus vacc ine, unspecified formulation [facility] Garcia [facility] Work Phone: 08-29-2018 influenza, injectabl e, quadrivalent, preservative free Gladys Garcia [facility] Work Phone: 06-19-2018 influenza virus vacc ine, unspecified formulation Gladys Garcia Work Phone: [facility] [employer] DO Work Phone: 07-05-2017 influenza, injectabl e, quadrivalent, preservative free Gladys Garcia [facility] Work Phone: 06-25-2016 hepatitis A vaccine, adult dosage Gladys Garcia [facility] Work Phone: 06-25-2016 typhoid capsular polysaccharide vaccine Gladys Garcia Work [facility]: [facility] Work Phone: 08-20-2013 tetanus toxoid, redu brenda diphtheria toxoid, and acellular pertussis vaccine, adsorbed Gladys Garcia Work Phone: [facility] DO Work Phone: 08-10-2013 influenza, seasonal, injectable Gladys Garcia Work Phone: [facility] DO Work Phone: Payers Date Payer Category Payer Unknown 2022 Private Health Insurance [facility] [id number] 2022-Present [address] [place] [address] [id number] 2020 Self-pay [id number] 1963 Unknown [id number] 2.16.840.1.030910.3.579.2.59 3 1963 Unknown [id number] 2.16.840.1.248761.3.579.2.59 3 1963 Unknown [id number] 2.16.840.1.466712.3.579.2.59 3 1963 Unknown [id number] 2.16.840.1.183685.3.579.2.59 3 1963 Unknown [id number] 2.16.840.1.811384.3.579.2.59 3 1963 Unknown [id number] 2.16.840.1.573839.3.579.2.72 7 1963 Unknown [id number] 2.16.840.1.607593.3.579.2.72 7 1963 Unknown [id number] 2.16.840.1.012042.3.579.2.10 68 1963 Unknown [id number] 2.16.840.1.386848.3.579.2.10 68 1963 Unknown [id number] 2.16.840.1.865769.3.579.2.12 45 1963 Unknown [id number] 2.16.840.1.709168.3.579.2.35 6 1963 Unknown [id number] 2.16.840.1.229118.3.579.2.35 6 1963 Unknown [id number] 2.16.840.1.595253.3.579.2.35 6 1963 Unknown [id number] 2.16.840.1.011952.3.579.2.35 6 1963 Unknown [id number] 2.16.840.1.705232.3.579.2.35 6 1963 Unknown [id number] 2.16.840.1.791094.3.579.2.35 6 1963 Unknown [id number] 2.16.840.1.313301.3.579.2.12 46 1963 Unknown [id number] 2.16.840.1.322319.3.579.2.12 44 1963 Unknown [id number] 2.16.840.1.560726.3.579.2.12 44 1963 Unknown [id number] 2.16.840.1.897120.3.579.2.12 44 1963 Unknown [id number] 2.16.840.1.619522.3.579.2.12 44 1963 Unknown [id number] 2.16.840.1.926812.3.579.2.12 44 1963 Unknown [id number] 2.16.840.1.945369.3.579.2.12 44 1963 Unknown [id number] 2.16.840.1.488868.3.579.2.12 59 1963 Unknown [id number] 2.16.840.1.098600.3.579.2.12 59 1963 Unknown [id number] 2.16.840.1.804883.3.579.2.12 59 1963 Unknown [id number] 2.16.840.1.727693.3.579.2.12 59 1963 Unknown [id number] 2.16.840.1.585835.3.579.2.12 59 1963 Unknown [id number] 2.16.840.1.841573.3.579.2.12 47 1963 Unknown [id number] 2.16.840.1.715485.3.579.2.12 47 1963 Unknown [id number] 2.16.840.1.815142.3.579.2.12 47 1963 Unknown [id number] 2.16.840.1.495793.3.579.2.12 47 1963 Unknown [id number] 2.16.840.1.345787.3.579.2.12 47 1963 Unknown [id number] 2.16.840.1.470300.3.579.2.12 47 1963 Unknown [id number] 2.16.840.1.374119.3.579.2.12 47 1963 Unknown [id number] 2.16.840.1.720396.3.579.2.12 47 1959 Self-pay [id number] 1959 Unknown [id number] 2.16.840.1.811459.19 1959 Unknown [id number] [facility] [id number] Unknown [id number] 2.16.840.1.246125.3.579.2.53 1 Unknown [id number] 2.16.840.1.718428.3.579.2.53 1 Unknown [id number] 2.16.840.1.415316.3.579.2.53 1 Unknown [id number] 2.16.840.1.263538.3.579.2.53 1 Unknown [id number] 2.16.840.1.171626.3.579.2.53 1 Unknown [id number] 2.16.840.1.958967.3.579.2.53 1 Unknown [id number] 2.16.840.1.821934.3.579.2.53 1 Unknown [id number] 2.16.840.1.111766.3.579.2.53 1 Social History Date Type Detail Facility Start: 06-29-2023 End: 08-29-2023 Never a smoker Never a smoker [facility] Start: 06-29-2023 End: 08-29-2023 Sex Assigned At [facility] Start: 03-01-2022 End: 06-30-2023 Tobacco smoking status NHIS Never smoked tobacco (finding) [facility] Start: 1965 Sex Assigned At Male [facility] Start: 06-30-2023 Tobacco use and exposure Smokeless tobacco non-user [facility] Work Phone: How often to you hav e a drink containing alcohol? Never [facility] How many standard drinks containing alcohol do you have on a typical day? Patient does not drink [facility] Work Phone: How hard is it for y ou to pay for the very basics like food, housing, medical care, and heating Not very hard [facility] Work Phone: In the past 12 month s, was there a time when you were not able to pay the mortgage or rent on time? No [facility] Work Phone: Start: 1965 [facility] Start: 06-19-2023 End: 11-10-2023 Exposure to SARS-CoV-2 (event) Not sure [facility] Start: 07-12-2023 End: 11-10-2023 Alcohol intake Lifetime non-drinker (finding) [facility] Work Phone: Medical Equipment Procedure Code Equipment Code Equipment Original Text Equipment Identifier Dates CL CLOSURE DEVIC E EXOSEAL 6F FDA Start: 10-26-2019 CL STENT BELKIS 2.[address] art: 10-26-2019 Drug-eluting cor onary artery stent, [id number] er-[id number] FDA Start: 10-26-2019 [id number] FDA Start: 11-08-2019 Femoral artery c losure plug/patch, synthetic polymer ()[id number] FDA Start: 11-08-2019 CL CLOSURE DEVIC E EXOSEAL 6F FDA Start: 10-26-2019 CL STENT BELKIS 2.[address] art: 10-26-2019 [id number] FDA Start: 11-08-2019 CL CLOSURE DEVIC E EXOSEAL 6F FDA Start: 10-26-2019 CL STENT BELKIS 2.[address] art: 10-26-2019 [id number] FDA Start: 11-08-2019 CL CLOSURE DEVIC E EXOSEAL 6F FDA Start: 10-26-2019 CL STENT BELKIS 2.[address] art: 10-26-2019 [id number] FDA Start: 11-08-2019 [id number] Start: 06-29-2023 CL CLOSURE DEVIC E EXOSEAL 6F FDA Start: 10-26-2019 CL STENT BELKIS 2.[address] art: 10-26-2019 [id number] FDA Start: 11-08-2019 Lead, Sprint Frankie ttro, 62cm, Df4 Lead, Icd Secure S - [id number] - [id number] Start: 06-29-2023 Lead, Capsurefix Novus, 52 Cm - [id number] - [id number] Start: 06-29-2023 CL CLOSURE DEVIC E EXOSEAL 6F FDA Start: 10-26-2019 CL STENT BELKIS 2.[address] art: 10-26-2019 [id number] FDA Start: 11-08-2019 CL CLOSURE DEVIC E EXOSEAL 6F FDA Start: 10-26-2019 CL STENT BELKIS 2.[address] art: 10-26-2019 [id number] FDA Start: 11-08-2019 CL CLOSURE DEVIC E EXOSEAL 6F FDA Start: 10-26-2019 CL STENT BELKIS 2.[address] art: 10-26-2019 [id number] FDA Start: 11-08-2019 CL CLOSURE DEVIC E EXOSEAL 6F FDA Start: 10-26-2019 CL STENT BELKIS 2.[address] art: 10-26-2019 [id number] FDA Start: 11-08-2019 CL CLOSURE DEVIC E EXOSEAL 6F FDA Start: 10-26-2019 CL STENT BELKIS 2.[address] art: 10-26-2019 [id number] FDA Start: 11-08-2019 Goals Date Patient Goal Desired Activity /State Functional Status Date Assessment Result Facility 10-30-2023 Functional status Patient at Baseline [facility] Work Phone: 10-28-2023 Functional status Patient at Baseline [facility] Work Phone: 04-04-2023 Functional status Patient at Baseline [facility] Work Phone: Mental Status Date Assessment Result Facility 10-30-2023 Cognitive function Cognitive Sta tus Patient at Baseline [facility] Work Phone: 10-28-2023 Cognitive function Cognitive Sta tus Patient at Baseline [facility] Work Phone: 04-04-2023 Cognitive function Cognitive Sta tus Patient at Baseline [facility] Work Phone: Clinical Notes 06-24-2021 to 11-10-2023 Monica Curran LPN - 11/10/2023 1:00 PM EST Note Date & Type Note Facility 11-10-2023 History of Present illness Narrative Patient here for at EKG visit ordered by Dr. Em due to post DCC. Dr. Em in suite physician. Patient here due to medication start of Amiodarone and Metoprolol Succinate. Medication list Updated verbally. Several cardiac complaints; weak, unsteady, off balance, holding onto furniture to walk, palpitations, feels like he has a irregular heart rate ans shortness of breath with and without excerption. Discussed with AZAR Medeiros prior to discharge. Patient is also asking if it is safe to fly to go watch Pulse. To Dr. Em for review. Vitals: 11/10/23 1354 BP: 102/76 BP Location: Right arm Patient Position: Sitting Pulse: 71 Weight: 137 kg (303 lb) Height: 1.88 m (6' 2 ) documented in this encounter [facility] Work Phone: 10-30-2023 Discharge summary Note Date/Time October 30, 2023 2:28pm [place] [address] Discharge Summary Signed Patient: Harriett Thakkar MR#: [id number] : 1965 Acct:[id number] Age/Sex: 58 / M Adm Date: 4 Loc: Room: [address] [place] [address]: Daniela Gore MD Copies to: MD Daniela Elizondo MD~ Providers Date of Discharge: 10/30/23 Discharging Provider: Daniela Gore Primary Care Provider: Toby Amador Consults: * Dallas Em MD;Cardiology Discharge Diagnosis (1) Atrial fibrillation with RVR: (2) Hypomagnesemia: (3) Diabetes mellitus: Final Diagnosis Final Discharge Diagnosis: As Above Summary Hospital Course Hospital course: Mr. Thakkar is a pleasant 58M with PMH of HTN, DM, HLD, CAD (s/p stenting), PAF (s/p ablation and recent cardioversion, on Eliquis), CM(EF ~ 45%), s/p ICD, peripheral neuropathy, orthostatic hypotension ARLET(intolerant to CPAP), MO(BMI >35) who was referred form cardiology office to ED due to Afib RVR on routine EKG Recurrent atrial fibrillation/flutter with RVR the patient was found to have Afib RVR in the ED with heart rate up to 130s and was Started on Cardizem Drip * EKG ED shows Afib @ 118 bpm without significant acute changes * CXR ED no acute cardiopulmonary abnormality Cardiology increased his amiodarone. Cardizem Drip tapered off. On discharge rate became controlled . he was cleared to be discharged with plan for possible cardioversion in 3 weeks if remain in A-fib/flutter Hypomagnesemia Mg of 1.1, he received IV Mg to keep > 2, then started on MagOx * During the patient's stay, all other chronic conditions remained stable unlessotherwise noted above. I have personally seen and examined the patient on the date of this note. The patient's condition has stabilized and shown improvement.Consequently, the decision has been made to discharge the patient to continue treatment on an outpatient basis. Both verbal and written discharge instructionswill be provided to ensure a smooth transition and continuity of care. Time Spent with Patient Time spent providing/coordinating discharge services (# min): 25 Diagnostic Studies Completed and Pending Studies Labs on day of discharge: 10/30/23 11:13: POC Glucose 170 10/30/23 10:07: Magnesium 1.7 L 10/30/23 06:45: POC Glucose 160 10/30/23 01:01: POC Glucose 82 10/30/23 00:35: POC Glucose 65 10/29/23 20:56: POC Glucose 97 10/29/23 16:57: POC Glucose 156 Exam Physical Exam Narrative: BP: 110/75; Pulse: 71; Temp: 36.5C; RR: 18; SpO2: 97% [On RA] GEN: Pleasant, Cooperative, Not in acute distress. LUNGS: CTA. normal respiratory effort. CHEST: no chest wall tenderness. CV: S1S2 nl, ? M/R/G ABD: Soft, ND, NT, + BS, ? HSM EXT: No edema in LE bilaterally, no calf muscle tenderness. NEURO: ? FND Discharge Plan Discharge Plan Patient Disposition: Home Activity: No Activity Restriction Diet: Diabetic, Low-Sodium and Low-Cholesterol Additional Instructions: you can buy over the counter Magox 400 mg and take one tablet daily Instructions: Atrial Fibrillation (DC) Prescriptions: New magnesium oxide 400 mg (241.3 mg magnesium) Tablet 400 mg PO DAILY Qty: 30 0RF Continued metformin 850 mg tablet 850 mg PO BID Patient Comments: TK 1 T PO BID insulin aspart U-100 100 unit/mL solution See Rx Instructions .ROUTE .COMPLEX Patient Comments: sliding scale Rx Instructions: 150-200=3, 200-250=6, 250-300=9, 300-350=12, 350-400=15 plus half as many insulin as carbs eaten. atorvastatin 80 mg Tablet 80 mg PO QPM 30 Days Qty: 30 12RF nitroglycerin [Nitrostat] 0.4 mg Tablet, Sublingual 0.4 mg SUBLINGUAL Q5-15M PRN (Reason: Angina) 30 Days Qty: 25 3RF insulin aspart U-100 100 unit/mL (3 mL) Insulin Pen See Protocol SUBCUT AC Protocol: Carb Coverage Insulin 1:2 gm CHO Protocol Text: *Carb coverage 1:2* Give 1 unit of rapid-acting insulin for every 2 gm of carbohydrates eaten at meals tamsulosin [Flomax] 0.4 mg capsule 0.4 mg PO DAILY clopidogrel 75 mg tablet 75 mg PO DAILY furosemide 20 mg tablet 60 mg PO DAILY Patient Comments: TK 1 T PO D potassium chloride 10 mEq Capsule, Extended Release 20 meq PO DAILY midodrine 2.5 mg tablet 10 mg PO TID Patient Comments: TAKE 1 TABLET BY MOUTH THREE TIMES DAILY Ozempic 1 mg/dose (4 mg/3 mL) pen injector 2 mg SUBCUT QWEEK Patient Comments: INJECT 1MG UNDER THE SKIN ONE DAY A WEEK Rx Instructions: tuesday insulin glargine-yfgn [Semglee(insulin glargine-yfgn)] 100 unit/mL solution 50 unit SUBCUT DAILY Patient Comments: ADMINISTER 60 UNITS UNDER THE SKIN DAILY Eliquis 5 mg tablet 5 mg PO Q12H 30 Days Qty: 60 12RF Changed amiodarone 200 mg tablet 200 mg PO TID 30 Days Qty: 90 0RF metoprolol succinate 25 mg tablet extended release 24 hr 50 mg PO DAILY Qty: 30 0RF Follow Up: Angel Griggs MD [Active Staff] - (Please call his office tomorrow to schedule a post hospital appointment.) Toby Amador MD [Primary Care Provider] - (Please call his office tomorrow to schedule a post hospital appointment.) Documented By: Daniela Gore MD 10/30/23 1424 Signed By: <Electronically signed by Daniela Gore MD> 10/30/23 1823 [facility] Work Phone: 1(462) 417-624102-11-2024 Progress note Author Dallas Em [facility] October 30, 2023 10:19am Note Date/Time October 30, 2023 10:19am [facility] [address] [place] [address] Cardiology Progress Note Signed Patient: Harriett Thakkar MR#: [id number] : 1965 Acct:[id number] Age/Sex: 58 / M Adm Date: 4 Loc: 3T Room: [address] [place] [address] Type: ADM INOo Attending Dr: Daniela Gore MD Copies to: ~ Date of Service: 10/30/2023 Subjective Interval history: Remain in atrial flutter but heart rate better controlled Exam Physical Exam Vital Signs: Temp Pulse Resp BP Pulse Ox O2 Del Method 97.2 F L 69 18 112/85 95 Room Air 10/30/23 08:00 10/30/23 08:00 10/30/23 08:00 10/30/23 08:00 10/30/23 08:00 10/30/23 08:00 Eyes General: appearance normal, both eyes and all related structures Pupils: PERRL Neck Neck: normal visual inspection, supple and no lymphadenopathy noted Neck mass: No Thyroid: thyroid normal Carotids: normal carotid upstroke Chest Chest palpation & inspection: normal inspection of the chest Resp Effort & Inspection: normal respiratory effort Auscultation: clear to auscultation bilaterally Cardio Rhythm: abnormal rhythm irregularly irregular Heart Sounds: S1 normal and S2 normal GI Palpation: soft and no hepatosplenomegaly Percussion: normal to percussion Auscultation: normal bowel sounds Skin General: no rashes or lesions noted and dry skin Extrem General: full ROM, capillary refill normal and no clubbing, cyanosis or edema Objective Labs 10/28/23 11:29 10/28/23 11:29 Labs: Laboratory Results - last 24 hr 10/29/23 10/29/23 10/29/23 11:08 16:57 20:56 POC Glucose 206 156 97 10/30/23 10/30/23 10/30/23 00:35 01:01 06:45 POC Glucose 65 82 160 A&P - Cardiology (1) Atrial fibrillation with RVR: Code(s): I48.91 - Unspecified atrial fibrillation Plan Assessment 1. Recurrent atrial fibrillation/flutter. Patient underwent ablation in August. He did undergo cardioversion about 10 days ago. He has been on amiodarone for 8 weeks according to him. Chart suggest he failed dofetilide in the past. His atrial fibrillation/flutter symptomatic 2. Coronary disease with prior PCI to LAD 3. Status post AICD implant 4. Patient chronically anticoagulation and on amiodarone therapy 5. Obesity 6. Diabetes mellitus with history of autonomic diabetic dysfunction with recurrent orthostatic hypotension 7. Obesity Plan 1. Heart rate controlled has improved with adjustment of his medication. Plan to discharge continue medical regimen and consider cardioversion in 3 weeks if remain in A-fib/flutter 2. Treatment option reviewed with patient at great length he understood and agreed 3. Patient can be discharged home on current medication Documented By: Dallas Em MD 10/30/23 1018 Signed By: <Electronically signed by MD Dallas Em> 10/30/23 [facility][note 3]9 [facility] Work Phone: 1(626) 346-121902-11-2024 Progress note Author Dallas Em [facility] October 30, 2023 10:19am Note Date/Time October 30, 2023 10:19am [facility] [address] [place] [address] Cardiology Progress Note Signed Patient: Harriett Thakkar MR#: [id number] : 1965 Acct:[id number] Age/Sex: 58 / M Adm Date: 4 Loc: 3T Room: [address] [place] [address] Type: ADM INOo Attending Dr: Daniela Gore MD Copies to: ~ Date of Service: 10/30/2023 Subjective Interval history: Remain in atrial flutter but heart rate better controlled Exam Physical Exam Vital Signs: Temp Pulse Resp BP Pulse Ox O2 Del Method 97.2 F L 69 18 112/85 95 Room Air 10/30/23 08:00 10/30/23 08:00 10/30/23 08:00 10/30/23 08:00 10/30/23 08:00 10/30/23 08:00 Eyes General: appearance normal, both eyes and all related structures Pupils: PERRL Neck Neck: normal visual inspection, supple and no lymphadenopathy noted Neck mass: No Thyroid: thyroid normal Carotids: normal carotid upstroke Chest Chest palpation & inspection: normal inspection of the chest Resp Effort & Inspection: normal respiratory effort Auscultation: clear to auscultation bilaterally Cardio Rhythm: abnormal rhythm irregularly irregular Heart Sounds: S1 normal and S2 normal GI Palpation: soft and no hepatosplenomegaly Percussion: normal to percussion Auscultation: normal bowel sounds Skin General: no rashes or lesions noted and dry skin Extrem General: full ROM, capillary refill normal and no clubbing, cyanosis or edema Objective Labs 10/28/23 11:29 10/28/23 11:29 Labs: Laboratory Results - last 24 hr 10/29/23 10/29/23 10/29/23 11:08 16:57 20:56 POC Glucose 206 156 97 10/30/23 10/30/23 10/30/23 00:35 01:01 06:45 POC Glucose 65 82 160 A&P - Cardiology (1) Atrial fibrillation with RVR: Code(s): I48.91 - Unspecified atrial fibrillation Plan Assessment 1. Recurrent atrial fibrillation/flutter. Patient underwent ablation in August. He did undergo cardioversion about 10 days ago. He has been on amiodarone for 8 weeks according to him. Chart suggest he failed dofetilide in the past. His atrial fibrillation/flutter symptomatic 2. Coronary disease with prior PCI to LAD 3. Status post AICD implant 4. Patient chronically anticoagulation and on amiodarone therapy 5. Obesity 6. Diabetes mellitus with history of autonomic diabetic dysfunction with recurrent orthostatic hypotension 7. Obesity Plan 1. Heart rate controlled has improved with adjustment of his medication. Plan to discharge continue medical regimen and consider cardioversion in 3 weeks if remain in A-fib/flutter 2. Treatment option reviewed with patient at great length he understood and agreed 3. Patient can be discharged home on current medication Documented By: Dallas Em MD 10/30/23 1018 Signed By: <Electronically signed by MD Dallas Em> 10/30/23 1019 [facility] Work Phone: [phone]) [phone] Progress note Author Daniela Gore [facility] October 29, 2023 6:42pm Note Date/Time October 29, 2023 2:45pm [facility] [address] [place] [address] Hospitalist Progress Note Signed Patient: Harriett Thakkar MR#: [id number] : 1965 Acct:[id number] Age/Sex: 58 / M Adm Date: 4 Loc: Room: [address] [place] [address] Type: ADM INOo Attending Dr: Daniela Gore MD Copies to: ~ Date of Service: 10/29/2023 Subjective Subjective Narrative: Assessment And Plan 58M with PMH of HTN, DM, HLD, CAD (s/p stenting), PAF (s/p ablation and recent cardioversion, on Eliquis), CM(EF ~ 45%), peripheral neuropathy, orthostatic hypotension ARLET(intolerant to CPAP), MO(BMI >35) who was referred form cardiology office to ED due to Afib RVR on routine EKG Recrrent Paroxysmal Afib with RVR hemodynamically stable, still not controlled on/off Cardizem drip, not improvingas expected , agree with increase amiodarone the patient was found to have Afib RVR in the ED with heart rate up to 130s and was Started on Cardizem Drip EKG ED (i personally reviewed) shows Afib @ 118 bpm without significant acute changes CXR ED: no acute cardiopulmonary abnormality the patient will need one more day to monitor change of mediation and to evaluate the possibility of cardioversion of DC medication failed to covert the rhythm.given the need for more workup and treatment . he will be switched to inpatient status Rate control : Diltiazem drip and c/w BB Agree with amiodarone dose increase Eliquis Telemetry Correct electrolyte abnormality if any Cardiology recommendation appreciated Hypomagnesemia Mg of 1.1 Aggressively replace Mg to keep > 2 (6 mg IV total to be given) MagOx check Mg in am DM blood sugars were reviewed carbohydrate controlled diet. sliding scale insulin and accuchecks. basal insulin prandial insulin hypoglycemia protocol. INTERVAL HPI:?As Above, Pt resting in bed. feeling the same . Denies any chest pain, SOB Chronic diseases:?Unless mentioned Above, Essential home medications have been continued.? DVT Px:?Addressed Disposition:?To be determined Plan of care Discussed with:?the medical team, the patient Exam Physical Exam Vital Signs: Temp Pulse Resp BP Pulse Ox O2 Del Method 36.3 C L 73 16 112/77 99 Room Air 10/29/23 11:41 10/29/23 11:41 10/29/23 11:41 10/29/23 11:41 10/29/23 11:41 10/29/23 11:41 Narrative: GEN: Pleasant, Cooperative, Not in acute distress. LUNGS: CTA. normal respiratory effort. CHEST: no chest wall tenderness. CV: S1S2 nl, ? M/R/G ABD: Soft, ND, NT, + BS, ? HSM EXT: No edema in LE bilaterally, no calf muscle tenderness. NEURO: ? FND Objective Lab Results 10/28/23 11:29 10/28/23 11:29 Meds Allergies and Active Meds Allergies penicillamine Allergy (Unknown, Verified 11/18/20 16:44) Sulfa (Sulfonamide Antibiotics) Allergy (Unknown, Verified 04/02/23 09:42) Unknown Reaction Penicillins Allergy (Verified 04/02/23 09:42) Unknown Reaction Active Meds: Active Medications Generic Name Dose Route Start Last Admin Trade Name Freq PRN Reason Stop Dose Admin Acetaminophen 650 mg 10/28/23 18:49 Acetaminophen 325 Mg Tablet PO 10/27/24 18:48 Q6H PRN Pain 1-5 or fever Amiodarone HCl 200 mg 10/29/23 22:00 Amiodarone 200 Mg Tablet PO 10/28/24 21:59 TID RADHA Apixaban 5 mg 10/29/23 09:00 10/29/23 09:44 Apixaban 5 Mg Tablet PO 10/28/24 08:59 5 mg BID RADHA Administration Atorvastatin Calcium 80 mg 10/28/23 21:00 10/28/23 20:22 Atorvastatin 80 Mg Tablet PO 10/27/24 20:59 80 mg QPM RADHA Administration Clopidogrel Bisulfate 75 mg 10/29/23 09:00 10/29/23 09:44 Clopidogrel Bisulfate 75 Mg Tablet PO 10/28/24 08:59 75 mg DAILY RADHA Administration Dextrose 0 gm 10/28/23 18:46 Dextrose 50% In Water 25 Gm/50 Ml Syringe IV-PUSH 10/27/24 18:45 PRN PRN Hypoglycemia Furosemide 60 mg 10/29/23 09:00 10/29/23 09:44 Furosemide 20 Mg Tablet PO 10/28/24 08:59 60 mg DAILY RADHA Administration Glucose 0 gm 10/28/23 18:46 Dextrose 40% Gel 15 Gm Tube PO 10/27/24 18:45 PRN PRN Hypoglycemia Diltiazem HCl 100 mg in 100 mls @ 10 mls/hr 10/28/23 11:30 10/29/23 08:13 Cardizem IV 10/27/24 11:29 Not Given .Q10H RADHA Protocol 10 MG/HR Magnesium Sulfate 2 gm in 50 mls @ 25 mls/hr 10/28/23 18:42 Magnesium Sulf 2gm-*Swfi* IV 10/27/24 18:41 DAILY PRN Hypomagnesemia <1.7 Mg/dl Sodium Chloride 1,000 mls @ 0 mls/hr 10/29/23 07:45 10/29/23 08:06 0.9% Sodium Chloride 1,000 Ml IV 10/28/24 07:44 20 mls/hr .Q0M RADHA Administration KVO Insulin Aspart 0 units 10/29/23 07:30 10/29/23 12:34 Insulin Aspart 300 Units/3 Ml Insuln.Pen SUBCUT 10/28/24 07:29 17 units AC RADHA Administration Protocol Insulin Aspart 0 units 10/28/23 22:00 10/29/23 12:35 Insulin Aspart 300 Units/3 Ml Insuln.Pen SUBCUT 10/27/24 21:59 2 units TID.WM.HS RADHA Administration Protocol Insulin Glargine 50 units 10/29/23 09:00 10/29/23 09:59 Insulin Glargine 300 Units/3 Ml Insuln.Pen SUBCUT 10/28/24 08:59 50 units DAILY RADHA Administration Metoprolol Succinate 50 mg 10/30/23 09:00 Metoprolol Succinate 50 Mg Tab.Er.24h PO 10/29/24 08:59 DAILY RADHA Midodrine 10 mg 10/28/23 22:00 10/29/23 09:44 Midodrine 5 Mg Tablet PO 10/27/24 21:59 10 mg TID RADHA Administration Nitroglycerin 0.4 mg 10/28/23 18:41 Nitroglycerin 0.4 Mg Tab.Subl SUBLINGUAL 10/27/24 18:40 Q5M PRN Angina Potassium Chloride 20 meq 10/29/23 09:00 10/29/23 09:43 Potassium Chloride Er 10 Meq Capsule.Er PO 10/28/24 08:59 20 meq DAILY RADHA Administration Tamsulosin HCl 0.4 mg 10/29/23 09:00 10/29/23 09:44 Tamsulosin 0.4 Mg Cap.Er.24h PO 10/28/24 08:59 0.4 mg DAILY RADHA Administration A&P - Hospitalist Assessment/Plan (1) Atrial fibrillation with RVR: (2) Hypomagnesemia: (3) Diabetes mellitus: Plan Documented By: Daniela Gore MD 10/29/23 1444 Signed By: <Electronically signed by Daniela Gore MD> 10/29/23 0426 [facility] Work Phone: [phone] 409-695002-10-2024 Progress note Author Daniela Gore [facility] October 29, 2023 6:42pm Note Date/Time October 29, 2023 2:45pm [facility] [address] [place] [address] Hospitalist Progress Note Signed Patient: Harriett Thakkar MR#: [id number] : 1965 Acct:[id number] Age/Sex: 58 / M Adm Date: 4 Loc: Room: [address] [place] [address] Type: ADM INOo Attending Dr: Daniela Gore MD Copies to: ~ Date of Service: 10/29/2023 Subjective Subjective Narrative: Assessment And Plan 58M with PMH of HTN, DM, HLD, CAD (s/p stenting), PAF (s/p ablation and recent cardioversion, on Eliquis), CM(EF ~ 45%), peripheral neuropathy, orthostatic hypotension ARLET(intolerant to CPAP), MO(BMI >35) who was referred form cardiology office to ED due to Afib RVR on routine EKG Recrrent Paroxysmal Afib with RVR hemodynamically stable, still not controlled on/off Cardizem drip, not improvingas expected , agree with increase amiodarone the patient was found to have Afib RVR in the ED with heart rate up to 130s and was Started on Cardizem Drip EKG ED (i personally reviewed) shows Afib @ 118 bpm without significant acute changes CXR ED: no acute cardiopulmonary abnormality the patient will need one more day to monitor change of mediation and to evaluate the possibility of cardioversion of DC medication failed to covert the rhythm.given the need for more workup and treatment . he will be switched to inpatient status Rate control : Diltiazem drip and c/w BB Agree with amiodarone dose increase Eliquis Telemetry Correct electrolyte abnormality if any Cardiology recommendation appreciated Hypomagnesemia Mg of 1.1 Aggressively replace Mg to keep > 2 (6 mg IV total to be given) MagOx check Mg in am DM blood sugars were reviewed carbohydrate controlled diet. sliding scale insulin and accuchecks. basal insulin prandial insulin hypoglycemia protocol. INTERVAL HPI:?As Above, Pt resting in bed. feeling the same . Denies any chest pain, SOB Chronic diseases:?Unless mentioned Above, Essential home medications have been continued.? DVT Px:?Addressed Disposition:?To be determined Plan of care Discussed with:?the medical team, the patient Exam Physical Exam Vital Signs: Temp Pulse Resp BP Pulse Ox O2 Del Method 36.3 C L 73 16 112/77 99 Room Air 10/29/23 11:41 10/29/23 11:41 10/29/23 11:41 10/29/23 11:41 10/29/23 11:41 10/29/23 11:41 Narrative: GEN: Pleasant, Cooperative, Not in acute distress. LUNGS: CTA. normal respiratory effort. CHEST: no chest wall tenderness. CV: S1S2 nl, ? M/R/G ABD: Soft, ND, NT, + BS, ? HSM EXT: No edema in LE bilaterally, no calf muscle tenderness. NEURO: ? FND Objective Lab Results 10/28/23 11:29 10/28/23 11:29 Meds Allergies and Active Meds Allergies penicillamine Allergy (Unknown, Verified 11/18/20 16:44) Sulfa (Sulfonamide Antibiotics) Allergy (Unknown, Verified 04/02/23 09:42) Unknown Reaction Penicillins Allergy (Verified 04/02/23 09:42) Unknown Reaction Active Meds: Active Medications Generic Name Dose Route Start Last Admin Trade Name Freq PRN Reason Stop Dose Admin Acetaminophen 650 mg 10/28/23 18:49 Acetaminophen 325 Mg Tablet PO 10/27/24 18:48 Q6H PRN Pain 1-5 or fever Amiodarone HCl 200 mg 10/29/23 22:00 Amiodarone 200 Mg Tablet PO 10/28/24 21:59 TID RADHA Apixaban 5 mg 10/29/23 09:00 10/29/23 09:44 Apixaban 5 Mg Tablet PO 10/28/24 08:59 5 mg BID RADHA Administration Atorvastatin Calcium 80 mg 10/28/23 21:00 10/28/23 20:22 Atorvastatin 80 Mg Tablet PO 10/27/24 20:59 80 mg QPM RADHA Administration Clopidogrel Bisulfate 75 mg 10/29/23 09:00 10/29/23 09:44 Clopidogrel Bisulfate 75 Mg Tablet PO 10/28/24 08:59 75 mg DAILY RADHA Administration Dextrose 0 gm 10/28/23 18:46 Dextrose 50% In Water 25 Gm/50 Ml Syringe IV-PUSH 10/27/24 18:45 PRN PRN Hypoglycemia Furosemide 60 mg 10/29/23 09:00 10/29/23 09:44 Furosemide 20 Mg Tablet PO 10/28/24 08:59 60 mg DAILY RADHA Administration Glucose 0 gm 10/28/23 18:46 Dextrose 40% Gel 15 Gm Tube PO 10/27/24 18:45 PRN PRN Hypoglycemia Diltiazem HCl 100 mg in 100 mls @ 10 mls/hr 10/28/23 11:30 10/29/23 08:13 Cardizem IV 10/27/24 11:29 Not Given .Q10H RADHA Protocol 10 MG/HR Magnesium Sulfate 2 gm in 50 mls @ 25 mls/hr 10/28/23 18:42 Magnesium Sulf 2gm-*Swfi* IV 10/27/24 18:41 DAILY PRN Hypomagnesemia <1.7 Mg/dl Sodium Chloride 1,000 mls @ 0 mls/hr 10/29/23 07:45 10/29/23 08:06 0.9% Sodium Chloride 1,000 Ml IV 10/28/24 07:44 20 mls/hr .Q0M RADHA Administration KVO Insulin Aspart 0 units 10/29/23 07:30 10/29/23 12:34 Insulin Aspart 300 Units/3 Ml Insuln.Pen SUBCUT 10/28/24 07:29 17 units AC RADHA Administration Protocol Insulin Aspart 0 units 10/28/23 22:00 10/29/23 12:35 Insulin Aspart 300 Units/3 Ml Insuln.Pen SUBCUT 10/27/24 21:59 2 units TID.WM.HS RADHA Administration Protocol Insulin Glargine 50 units 10/29/23 09:00 10/29/23 09:59 Insulin Glargine 300 Units/3 Ml Insuln.Pen SUBCUT 10/28/24 08:59 50 units DAILY RADHA Administration Metoprolol Succinate 50 mg 10/30/23 09:00 Metoprolol Succinate 50 Mg Tab.Er.24h PO 10/29/24 08:59 DAILY RADHA Midodrine 10 mg 10/28/23 22:00 10/29/23 09:44 Midodrine 5 Mg Tablet PO 10/27/24 21:59 10 mg TID RADHA Administration Nitroglycerin 0.4 mg 10/28/23 18:41 Nitroglycerin 0.4 Mg Tab.Subl SUBLINGUAL 10/27/24 18:40 Q5M PRN Angina Potassium Chloride 20 meq 10/29/23 09:00 10/29/23 09:43 Potassium Chloride Er 10 Meq Capsule.Er PO 10/28/24 08:59 20 meq DAILY RADHA Administration Tamsulosin HCl 0.4 mg 10/29/23 09:00 10/29/23 09:44 Tamsulosin 0.4 Mg Cap.Er.24h PO 10/28/24 08:59 0.4 mg DAILY RADHA Administration A&P - Hospitalist Assessment/Plan (1) Atrial fibrillation with RVR: (2) Hypomagnesemia: (3) Diabetes mellitus: Plan Documented By: Daniela Gore MD 10/29/23 8695 Signed By: <Electronically signed by Daniela Gore MD> 10/29/23 7298 [facility] Work Phone: [phone]) [phone] Consult note Author Dallas Em [facility] October 29, 2023 2:19pm Note Date/Time October 29, 2023 2:14pm [facility] [address] [place] [address] Cardiology Consult Note Signed Patient: Harriett Thakkar MR#: [id number] : 1965 Acct:[id number] Age/Sex: 58 / M Adm Date: 4 Loc: Room: [address] [place] [address] Type: ADM INOo Attending Dr: Daniela Gore MD Copies to: MD Daniela Elizondo MD Mourhaf A Traboulssi, MD~ Cardiology HPI History of Present Illness Consult Date: 10/29/23 Reason for Consult: Cardiac consultation requested for evaluation for atrial fibrillation/flutter HPI: Mr. Thakkar is a 58 year old male with known history of atrial fibrillation/flutter underwent ablation in August with a recurrence of his arrhythmia requiring cardioversion about 10 days ago presented to the hospital back complaining of sudden onset palpitation, fatigue, weakness, dizziness and shortness of breath. He came to the emergency room where he was noted to be in atrial fibrillation/flutter with rapid ventricular rate. He was started on IV Cardizem with improvement of his symptoms. Patient had in the past been on dofetilide which failed to maintain sinus rhythm. He underwent ablation recently and was started on amiodarone few months back. His cardioversion was about 10 days ago. At the time of evaluation the patient feels better. Patientdoes not have history of coronary artery disease with remote PCI to the LAD, diabetes, diabetic autonomic insufficiency with recurrent orthostatic hypotension and history of ventricular arrhythmia status post AICD implant. Patient denies chest pain or shortness of breath. Review of Systems Review of Systems Review of systems: Review of all other pertinent system completely unremarkable except for mentioned above [facility] Medical History (Updated 10/28/23 @ 15:48 by Dylon Weiss DO) CAD (coronary artery disease) Amputated toe of right foot 2 toes Amputated toe of left foot Diabetes mellitus, type 2 Hyperlipidemia A-fib Surgical History H/O cardiac radiofrequency ablation History of coronary angioplasty with insertion of stent History of cardiac catheterization S/P cervical spinal fusion History of phacoemulsification of cataract of both eyes with intraocular lens implantation Family History Father Diabetes CAD (coronary artery disease) Pulmonary embolism Mother Diabetes Brother Hypertension Brother Hypertension Legacy FamHx Relation: Brother(s) Father Diabetes Heart disease Mother Diabetes Social History Smoking Status: Never smoker Substance Use Type: None Social History Comments: 2 grand daughters Meds Medications and Allergies Allergies penicillamine Allergy (Unknown, Verified 11/18/20 16:44) Sulfa (Sulfonamide Antibiotics) Allergy (Unknown, Verified 04/02/23 09:42) Unknown Reaction Penicillins Allergy (Verified 04/02/23 09:42) Unknown Reaction Home Medications insulin aspart U-100 100 unit/mL subcutaneous solution See Rx Instructions .Route .COMPLEX diabetes 08/04/17 [History Confirmed 10/28/23] metformin 850 mg tablet 850 mg PO BID diabetes 08/04/17 [History Confirmed 10/28/23] atorvastatin 80 mg tablet 80 mg PO QPM 30 days #30 tabs 11/09/19 [Rx Confirmed 10/28/23] nitroglycerin 0.4 mg sublingual tablet (Nitrostat) 0.4 mg sublingual Q5-15M PRN Angina 30 days #25 tabs 11/12/19 [Rx Confirmed 10/28/23] clopidogrel 75 mg tablet 75 mg PO DAILY 07/04/20 [History Confirmed 10/28/23] furosemide 20 mg tablet 60 mg PO DAILY 07/04/20 [History Confirmed 10/28/23] insulin glargine-yfgn 100 unit/mL subcutaneous solution (Semglee (insulin glargine-yfgn)) 50 unit subcut DAILY 03/01/22 [History Confirmed 10/28/23] midodrine 2.5 mg tablet 10 mg PO TID 03/01/22 [History Confirmed 10/28/23] potassium chloride 10 mEq capsule,extended release 20 meq PO DAILY 03/01/22 [History Confirmed 10/28/23] semaglutide 1 mg/dose (4 mg/3 mL) subcutaneous pen injector (Ozempic) 2 mg subcut QWEEK 03/01/22 [History Confirmed 10/28/23] insulin aspart U-100 100 unit/mL (3 mL) subcutaneous pen See Protocol subcut AC 04/04/23 [History Confirmed 10/28/23] amiodarone 200 mg tablet 200 mg PO DAILY 10/19/23 [History Confirmed 10/28/23] metoprolol succinate 25 mg tablet,extended release 24 hr 25 mg PO DAILY 10/19/23[History Confirmed 10/28/23] apixaban 5 mg tablet (Eliquis) 5 mg PO Q12H 30 days #60 tabs 10/20/23 [Rx Confirmed 10/28/23] tamsulosin 0.4 mg capsule (Flomax) 0.4 mg PO DAILY 10/28/23 [History Confirmed 10/28/23] Exam Physical Exam Vital Signs: Temp Pulse Resp BP Pulse Ox O2 Del Method 97.3 F L 73 16 112/77 99 Room Air 10/29/23 11:41 10/29/23 11:41 10/29/23 11:41 10/29/23 11:41 10/29/23 11:41 10/29/23 11:41 Const General: cooperative, comfortable, no acute distress [...] effort Auscultation: clear to auscultation bilaterally Cardio Rhythm: abnormal rhythm irregularly irregular Heart Sounds: S1 normal and S2 normal [...] Status: mental status grossly normal Results Labs 10/28/23 11:29 10/28/23 11:29 Lab results: Intake and Output 10/28/23 10/29/23 10/29/23 23:59 07:59 15:59 Intake Total 400 / 400 100 / 100 Balance 400 / 400 100 / 100 Intake: IV 100 / 100 dilTIAZem 100 MG -*NaCl* 100 mg 100 / 100 In 100 ml @ 10 MG/HR 10 mls/hr IV .Q10H RADHA Rx#:[id number] Oral 400 / 400 Other: # Unmeasured Voids 1 1 Weight 135.8 kg 133.2 kg Date of Last Bowel Movement 10/28/23 Patient Weight 10/29/23 23:59 Weight 133.2 kg Lab 10/28/23 11:29 PT 17.5 H INR 1.5 APTT 36.1 EKG Interpretations EKG Attestation EKG: I reviewed this ECG and interpreted as documented below: (Rhythm appears to be atrial flutter with RVR) A&P - Cardiology (1) Atrial fibrillation with RVR: Code(s): I48.91 - Unspecified atrial fibrillation Plan Assessment 1. Recurrent atrial fibrillation/flutter. Patient underwent ablation in August. He did undergo cardioversion about 10 days ago. He has been on amiodarone for 8 weeks according to him. Chart suggest he failed dofetilide in the past. His atrial fibrillation/flutter symptomatic 2. Coronary disease with prior PCI to LAD 3. Status post AICD implant 4. Patient chronically anticoagulation and on amiodarone therapy 5. Obesity 6. Diabetes mellitus with history of autonomic diabetic dysfunction with recurrent orthostatic hypotension 7. Obesity Plan 1. I had lengthy discussion with the patient regarding treatment option I suggested to increase his amiodarone and metoprolol. Wean off his IV diltiazem. We discussed early versus delayed cardioversion. I told him he would benefit from an additional loading of amiodarone to optimize chances that he would stay in the rhythm considering recent experience. He agreed with that approach. Hopefully his heart rate control in the next 24 hours he can be discharged on a higher dose of amiodarone with plan to repeat cardioversion in few weeks 2. Treatment option reviewed with patient at great length he understood and agreed Documented By: Dallas Em MD 10/29/23 1418 Signed By: <Electronically signed by MD Dallas Em> 10/29/23 3249 [facility] Work Phone: [phone]) 435-262502-10-2024 History and physical note Author Daniela Gore [facility] October 29, 2023 1:01am Note Date/Time October 28, 2023 6 :49pm [facility] [address] [place] [address] Hospitalist H&P Signed Patient: Harriett Thakkar MR#: [id number] : 1965 Acct:[id number] Age/Sex: 58 / M Adm Date: 4 Loc: 3T Room: [address] [place] [address] Type: ADM IN Attending Dr: Daniela Gore MD Copies to: MD Daniela Elizondo MD~ HPI DATE OF EXAMINATION: 10/28/23 HISTORY OF PRESENT ILLNESS: This is a pleasant 58M with PMH of HTN, DM, HLD, CAD (s/p stenting), PAF (s/p ablation and recent cardioversion, on Eliquis), CM(EF ~ 45%), peripheral neuropathy, orthostatic hypotension ARLET(intolerant to CPAP), MO(BMI >35) who was referred form cardiology office to ED due to Afib RVR on routine EKG At approximately 7:30 AM, the patient reported experiencing lightheadedness and mild exertional dyspnea. He was scheduled for an EKG at his cardiology office for a follow-up of cardioversion on 10/20. The patient was found with AFib RVR andwas subsequently sent to the ED. He denies any symptoms of chest pain, cough, weakness, fever, or chills. ROS: Ten Systems reviewed with the patient, all negative except what stated above Assessment And Plan Paroxysmal Afib with RVR hemodynamically stable, Rate controlled now the patient was found to have Afib RVR in the ED with heart rate up to 130s and was Started on Cardizem Drip EKG ED (i personally reviewed) shows Afib @ 118 bpm without significant acute changes CXR ED: no acute cardiopulmonary abnormality Rate control : Diltiazem drip and c/w BB Eliquis Telemetry Correct electrolyte abnormality if any Cardiology on consult Hypomagnesemia Mg of 1.1 Aggressively replace Mg to keep > 2 (6 mg IV total to be given) MagOx to be added on DC DM blood sugars were reviewed carbohydrate controlled diet. sliding scale insulin and accuchecks. basal insulin prandial insulin hypoglycemia protocol. Chronic diseases:?Unless mentioned Above, Essential home medications have been continued.? DVT Px:?Addressed Plan of care Discussed with:?the medical team, the patient [facility] Medical History (Updated 10/28/23 @ 15:48 by Dylon Weiss DO) CAD (coronary artery disease) Amputated toe of right foot 2 toes Amputated toe of left foot Diabetes mellitus, type 2 Hyperlipidemia A-fib Surgical History H/O cardiac radiofrequency ablation History of coronary angioplasty with insertion of stent History of cardiac catheterization S/P cervical spinal fusion History of phacoemulsification of cataract of both eyes with intraocular lens implantation Family History Father Diabetes CAD (coronary artery disease) Pulmonary embolism Mother Diabetes Brother Hypertension Brother Hypertension Legacy FamHx Relation: Brother(s) Father Diabetes Heart disease Mother Diabetes Social History Smoking Status: Never smoker Substance Use Type: None Social History Comments: 2 grand daughters Meds Medications and Allergies Allergies penicillamine Allergy (Unknown, Verified 11/18/20 16:44) Sulfa (Sulfonamide Antibiotics) Allergy (Unknown, Verified 04/02/23 09:42) Unknown Reaction Penicillins Allergy (Verified 04/02/23 09:42) Unknown Reaction Home Medications insulin aspart U-100 100 unit/mL subcutaneous solution See Rx Instructions .Route .COMPLEX diabetes 08/04/17 [History Confirmed 10/28/23] metformin 850 mg tablet 850 mg PO BID diabetes 08/04/17 [History Confirmed 10/28/23] atorvastatin 80 mg tablet 80 mg PO QPM 30 days #30 tabs 11/09/19 [Rx Confirmed 10/28/23] nitroglycerin 0.4 mg sublingual tablet (Nitrostat) 0.4 mg sublingual Q5-15M PRN Angina 30 days #25 tabs 11/12/19 [Rx Confirmed 10/28/23] clopidogrel 75 mg tablet 75 mg PO DAILY 07/04/20 [History Confirmed 10/28/23] furosemide 20 mg tablet 60 mg PO DAILY 07/04/20 [History Confirmed 10/28/23] insulin glargine-yfgn 100 unit/mL subcutaneous solution (Semglee (insulin glargine-yfgn)) 50 unit subcut DAILY 03/01/22 [History Confirmed 10/28/23] midodrine 2.5 mg tablet 10 mg PO TID 03/01/22 [History Confirmed 10/28/23] potassium chloride 10 mEq capsule,extended release 20 meq PO DAILY 03/01/22 [History Confirmed 10/28/23] semaglutide 1 mg/dose (4 mg/3 mL) subcutaneous pen injector (Ozempic) 2 mg subcut QWEEK 03/01/22 [History Confirmed 10/28/23] insulin aspart U-100 100 unit/mL (3 mL) subcutaneous pen See Protocol subcut AC 04/04/23 [History Confirmed 10/28/23] amiodarone 200 mg tablet 200 mg PO DAILY 10/19/23 [History Confirmed 10/28/23] metoprolol succinate 25 mg tablet,extended release 24 hr 25 mg PO DAILY 10/19/23[History Confirmed 10/28/23] apixaban 5 mg tablet (Eliquis) 5 mg PO Q12H 30 days #60 tabs 10/20/23 [Rx Confirmed 10/28/23] tamsulosin 0.4 mg capsule (Flomax) 0.4 mg PO DAILY 10/28/23 [History Confirmed 10/28/23] Exam Physical Exam Vital Signs: Temp Pulse Resp BP Pulse Ox O2 Del Method 36.4 C L 69 17 103/68 98 Room Air 10/28/23 10:52 10/28/23 17:04 10/28/23 17:04 10/28/23 17:04 10/28/23 17:04 10/28/23 17:04 Narrative: GEN: Pleasant, Cooperative, Not in acute distress. NECK: Supple, ? JVD LUNGS: CTA. normal respiratory effort. CHEST: no chest wall tenderness. CV: S1S2 nl, ? M/R/G ABD: Soft, ND, NT, + BS, ? rebound/guarding, ?CVA tenderness, ? HSM EXT: No edema in LE bilaterally, no calf muscle tenderness. NEURO: ? FND PSYCH: nl affect, ? hallucinations, nl speech, AOx3. Results Lab Results Labs: Laboratory Last Values Corrected WBC 6.5 X10E3/uL (4.1-10.5) 10/28/23 11:29 Uncorrected WBC Count 6.5 x10E3/uL (4.1-10.5) 10/28/23 11:29 RBC 4.36 X10E6/uL (3.90-5.60) 10/28/23 11:29 Hgb 14.0 g/dL (13.0-17.0) 10/28/23 11:29 Hct 39.9 % (38.8-50.0) 10/28/23 11:29 MCV 91.6 fl (83.5-101) 10/28/23 11:29 MCH 32.2 pg (27.5-35.2) 10/28/23 11:29 MCHC 35.1 g/dL (32.5-35.6) 10/28/23 11:29 RDW 15.3 % (12.0-14.8) H 10/28/23 11:29 Plt Count 154 x10E3/uL (150-450) 10/28/23 11:29 MPV 8.7 fl (6.6-10.1) 10/28/23 11:29 Neut % (Auto) 76.5 % (.) 10/28/23 11:29 Lymph % (Auto) 14.1 % (.) 10/28/23 11:29 [place] % (Auto) 7.2 % (.) 10/28/23 11:29 Eos % (Auto) 1.7 % (.) 10/28/23 11:29 Baso % (Auto) 0.5 % (.) 10/28/23 11:29 Nucleat RBC Rel Count 0.0 /100 WBC (0-0.5) 10/28/23 11:29 Neut # (Auto) 5.0 x10E3/uL (1.8-7.7) 10/28/23 11:29 Lymph # (Auto) 0.9 x10E3/uL (1.00-4.8) L 10/28/23 11:29 [place] # (Auto) 0.5 x10E3/uL (0.0-0.8) 10/28/23 11:29 Eos # (Auto) 0.1 x10E3/uL (0.0-0.45) 10/28/23 11:29 Baso # (Auto) 0.0 x10E3/uL (0.0-0.2) 10/28/23 11: Monocyte Dist Width 18.98 % (0.00-20.00) 10/28/23 11: PT 17.5 Seconds (9.0-12.9) H 10/28/23 11:29 INR 1.5 10/28/23 11:29 APTT 36.1 Seconds (25.1-36.5) 10/28/23 11:29 PHA Creatinine Clear 92.05 10/28/23 11:29 Sodium 139 mmol/L (136-145) 10/28/23 11:29 Potassium 3.8 mmol/L (3.5-5.1) 10/28/23 11: Chloride 102 mmol/L (98-107) 10/28/23 11: Carbon Dioxide 27.8 mmol/L (21.0-31.0) 10/28/23 11:29 Anion Gap 13.0 mEq/L (6.0-15.0) 10/28/23 11:29 BUN 19 mg/dL (7-25) 10/28/23 11:29 Creatinine 1.25 mg/dL (0.70-1.30) 10/28/23 11:29 Est GFR (CKD-EPI) > 60.0 mL/Min 10/28/23 11:29 Glucose 173 mg/dL (70-100) H 10/28/23 11:29 Calcium 8.5 mg/dL (8.6-10.3) L 10/28/23 11:29 Magnesium 1.1 mg/dL (1.9-2.7) L 10/28/23 11:29 Total Bilirubin 0.9 mg/dl (0.3-1.0) 10/28/23 11:29 AST 19 U/L (13-39) 10/28/23 11:29 ALT 21 U/L (7-52) 10/28/23 11:29 Alkaline Phosphatase 70 U/L (34-104) 10/28/23 11:29 Troponin I High Sens 9.1 pg/mL (0.0-20.0) 10/28/23 11:29 B-Natriuretic Peptide 481.0 pg/mL (5-100) H 10/28/23 11:29 Total Protein 6.1 gm/dL (6.4-8.9) L 10/28/23 11:29 Albumin 3.8 gm/dL (3.5-5.7) 10/28/23 11:29 Globulin 2.3 gm/dL 10/28/23 11:29 Albumin/Globulin Ratio 1.7 10/28/23 11:29 Assessment & Plan Assessment/Plan (1) Atrial fibrillation with RVR: (2) Hypomagnesemia: (3) Diabetes mellitus: Plan IP vs OBS Justification Based on differential dx, clinical care plan, and risk of adverse events, if untreated, in my clinical judgement this patient requires an acute care setting as:OBSERVATION because of an expectation of an under 2 midnight stay. Estimated length of stay (# of days): 1 Documented By: Daniela Gore MD 10/28/23 1846 Signed By: <Electronically signed by Daniela Gore MD> 10/29/23 0101 [facility] Work Phone: [phone] 768-424402-10-2024 History and physical note Author Daniela Gore [facility] October 29, 2023 1:01am Note Date/Time October 28, 2023 6 :49pm [facility] [address] [place] [address] Hospitalist H&P Signed Patient: Harriett Thakkar MR#: [id number] : 1965 Acct:[id number] Age/Sex: 58 / M Adm Date: 4 Loc: Room: [address] [place] [address] Type: ADM IN Attending Dr: Daniela Gore MD Copies to: MD Daniela Elizondo MD~ HPI DATE OF EXAMINATION: 10/28/23 HISTORY OF PRESENT ILLNESS: This is a pleasant 58M with PMH of HTN, DM, HLD, CAD (s/p stenting), PAF (s/p ablation and recent cardioversion, on Eliquis), CM(EF ~ 45%), peripheral neuropathy, orthostatic hypotension ARLET(intolerant to CPAP), MO(BMI >35) who was referred form cardiology office to ED due to Afib RVR on routine EKG At approximately 7:30 AM, the patient reported experiencing lightheadedness and mild exertional dyspnea. He was scheduled for an EKG at his cardiology office for a follow-up of cardioversion on 10/20. The patient was found with AFib RVR andwas subsequently sent to the ED. He denies any symptoms of chest pain, cough, weakness, fever, or chills. ROS: Ten Systems reviewed with the patient, all negative except what stated above Assessment And Plan Paroxysmal Afib with RVR hemodynamically stable, Rate controlled now the patient was found to have Afib RVR in the ED with heart rate up to 130s and was Started on Cardizem Drip EKG ED (i personally reviewed) shows Afib @ 118 bpm without significant acute changes CXR ED: no acute cardiopulmonary abnormality Rate control : Diltiazem drip and c/w BB Eliquis Telemetry Correct electrolyte abnormality if any Cardiology on consult Hypomagnesemia Mg of 1.1 Aggressively replace Mg to keep > 2 (6 mg IV total to be given) MagOx to be added on DC DM blood sugars were reviewed carbohydrate controlled diet. sliding scale insulin and accuchecks. basal insulin prandial insulin hypoglycemia protocol. Chronic diseases:?Unless mentioned Above, Essential home medications have been continued.? DVT Px:?Addressed Plan of care Discussed with:?the medical team, the patient [facility] Medical History (Updated 10/28/23 @ 15:48 by Dylon Weiss DO) CAD (coronary artery disease) Amputated toe of right foot 2 toes Amputated toe of left foot Diabetes mellitus, type 2 Hyperlipidemia A-fib Surgical History H/O cardiac radiofrequency ablation History of coronary angioplasty with insertion of stent History of cardiac catheterization S/P cervical spinal fusion History of phacoemulsification of cataract of both eyes with intraocular lens implantation Family History Father Diabetes CAD (coronary artery disease) Pulmonary embolism Mother Diabetes Brother Hypertension Brother Hypertension Legacy FamHx Relation: Brother(s) Father Diabetes Heart disease Mother Diabetes Social History Smoking Status: Never smoker Substance Use Type: None Social History Comments: 2 grand daughters Meds Medications and Allergies Allergies penicillamine Allergy (Unknown, Verified 11/18/20 16:44) Sulfa (Sulfonamide Antibiotics) Allergy (Unknown, Verified 04/02/23 09:42) Unknown Reaction Penicillins Allergy (Verified 04/02/23 09:42) Unknown Reaction Home Medications insulin aspart U-100 100 unit/mL subcutaneous solution See Rx Instructions .Route .COMPLEX diabetes 08/04/17 [History Confirmed 10/28/23] metformin 850 mg tablet 850 mg PO BID diabetes 08/04/17 [History Confirmed 10/28/23] atorvastatin 80 mg tablet 80 mg PO QPM 30 days #30 tabs 11/09/19 [Rx Confirmed 10/28/23] nitroglycerin 0.4 mg sublingual tablet (Nitrostat) 0.4 mg sublingual Q5-15M PRN Angina 30 days #25 tabs 11/12/19 [Rx Confirmed 10/28/23] clopidogrel 75 mg tablet 75 mg PO DAILY 07/04/20 [History Confirmed 10/28/23] furosemide 20 mg tablet 60 mg PO DAILY 07/04/20 [History Confirmed 10/28/23] insulin glargine-yfgn 100 unit/mL subcutaneous solution (Semglee (insulin glargine-yfgn)) 50 unit subcut DAILY 03/01/22 [History Confirmed 10/28/23] midodrine 2.5 mg tablet 10 mg PO TID 03/01/22 [History Confirmed 10/28/23] potassium chloride 10 mEq capsule,extended release 20 meq PO DAILY 03/01/22 [History Confirmed 10/28/23] semaglutide 1 mg/dose (4 mg/3 mL) subcutaneous pen injector (Ozempic) 2 mg subcut QWEEK 03/01/22 [History Confirmed 10/28/23] insulin aspart U-100 100 unit/mL (3 mL) subcutaneous pen See Protocol subcut AC 04/04/23 [History Confirmed 10/28/23] amiodarone 200 mg tablet 200 mg PO DAILY 10/19/23 [History Confirmed 10/28/23] metoprolol succinate 25 mg tablet,extended release 24 hr 25 mg PO DAILY 10/19/23[History Confirmed 10/28/23] apixaban 5 mg tablet (Eliquis) 5 mg PO Q12H 30 days #60 tabs 10/20/23 [Rx Confirmed 10/28/23] tamsulosin 0.4 mg capsule (Flomax) 0.4 mg PO DAILY 10/28/23 [History Confirmed 10/28/23] Exam Physical Exam Vital Signs: Temp Pulse Resp BP Pulse Ox O2 Del Method 36.4 C L 69 17 103/68 98 Room Air 10/28/23 10:52 10/28/23 17:04 10/28/23 17:04 10/28/23 17:04 10/28/23 17:04 10/28/23 17:04 Narrative: GEN: Pleasant, Cooperative, Not in acute distress. NECK: Supple, ? JVD LUNGS: CTA. normal respiratory effort. CHEST: no chest wall tenderness. CV: S1S2 nl, ? M/R/G ABD: Soft, ND, NT, + BS, ? rebound/guarding, ?CVA tenderness, ? HSM EXT: No edema in LE bilaterally, no calf muscle tenderness. NEURO: ? FND PSYCH: nl affect, ? hallucinations, nl speech, AOx3. Results Lab Results Labs: Laboratory Last Values Corrected WBC 6.5 X10E3/uL (4.1-10.5) 10/28/23 11:29 Uncorrected WBC Count 6.5 x10E3/uL (4.1-10.5) 10/28/23 11:29 RBC 4.36 X10E6/uL (3.90-5.60) 10/28/23 11:29 Hgb 14.0 g/dL (13.0-17.0) 10/28/23 11:29 Hct 39.9 % (38.8-50.0) 10/28/23 11:29 MCV 91.6 fl (83.5-101) 10/28/23 11:29 MCH 32.2 pg (27.5-35.2) 10/28/23 11:29 MCHC 35.1 g/dL (32.5-35.6) 10/28/23 11:29 RDW 15.3 % (12.0-14.8) H 10/28/23 11:29 Plt Count 154 x10E3/uL (150-450) 10/28/23 11:29 MPV 8.7 fl (6.6-10.1) 10/28/23 11:29 Neut % (Auto) 76.5 % (.) 10/28/23 11:29 Lymph % (Auto) 14.1 % (.) 10/28/23 11:29 [place] % (Auto) 7.2 % (.) 10/28/23 11:29 Eos % (Auto) 1.7 % (.) 10/28/23 11:29 Baso % (Auto) 0.5 % (.) 10/28/23 11:29 Nucleat RBC Rel Count 0.0 /100 WBC (0-0.5) 10/28/23 11:29 Neut # (Auto) 5.0 x10E3/uL (1.8-7.7) 10/28/23 11:29 Lymph # (Auto) 0.9 x10E3/uL (1.00-4.8) L 10/28/23 11:29 [place] # (Auto) 0.5 x10E3/uL (0.0-0.8) 10/28/23 11:29 Eos # (Auto) 0.1 x10E3/uL (0.0-0.45) 10/28/23 11:29 Baso # (Auto) 0.0 x10E3/uL (0.0-0.2) 10/28/23 11:29 Monocyte Dist Width 18.98 % (0.00-20.00) 10/28/23 11:29 PT 17.5 Seconds (9.0-12.9) H 10/28/23 11:29 INR 1.5 10/28/23 11:29 APTT 36.1 Seconds (25.1-36.5) 10/28/23 11:29 PHA Creatinine Clear 92.05 10/28/23 11:29 Sodium 139 mmol/L (136-145) 10/28/23 11:29 Potassium 3.8 mmol/L (3.5-5.1) 10/28/23 11: Chloride 102 mmol/L (98-107) 10/28/23 11:29 Carbon Dioxide 27.8 mmol/L (21.0-31.0) 10/28/23 11:29 Anion Gap 13.0 mEq/L (6.0-15.0) 10/28/23 11:29 BUN 19 mg/dL (7-25) 10/28/23 11:29 Creatinine 1.25 mg/dL (0.70-1.30) 10/28/23 11:29 Est GFR (CKD-EPI) > 60.0 mL/Min 10/28/23 11:29 Glucose 173 mg/dL (70-100) H 10/28/23 11:29 Calcium 8.5 mg/dL (8.6-10.3) L 10/28/23 11:29 Magnesium 1.1 mg/dL (1.9-2.7) L 10/28/23 11:29 Total Bilirubin 0.9 mg/dl (0.3-1.0) 10/28/23 11:29 AST 19 U/L (13-39) 10/28/23 11:29 ALT 21 U/L (7-52) 10/28/23 11:29 Alkaline Phosphatase 70 U/L (34-104) 10/28/23 11:29 Troponin I High Sens 9.1 pg/mL (0.0-20.0) 10/28/23 11:29 B-Natriuretic Peptide 481.0 pg/mL (5-100) H 10/28/23 11:29 Total Protein 6.1 gm/dL (6.4-8.9) L 10/28/23 11:29 Albumin 3.8 gm/dL (3.5-5.7) 10/28/23 11:29 Globulin 2.3 gm/dL 10/28/23 11:29 Albumin/Globulin Ratio 1.7 10/28/23 11:29 Assessment & Plan Assessment/Plan (1) Atrial fibrillation with RVR: (2) Hypomagnesemia: (3) Diabetes mellitus: Plan IP vs OBS Justification Based on differential dx, clinical care plan, and risk of adverse events, if untreated, in my clinical judgement this patient requires an acute care setting as:OBSERVATION because of an expectation of an under 2 midnight stay. Estimated length of stay (# of days): 1 Documented By: Daniela Gore MD 10/28/23 1844 Signed By: <Electronically signed by Daniela Gore MD> 10/29/23 0101 [facility] Work Phone: [phone]) [phone] History of Present illness Narrative* Monica Curran LPN - 10/28/2023 10:00 AM EST Patient here for at EKG visit ordered by Dr. Griggs due to Proximal a-fib with rapid ventricular response. Cardioversion one week ago. Dr. Griggs in suite physician. Patient here due to being symptomatic . Medication list Updated with list . Several cardiac complaints; dizzy, lightheaded, pale, sweating, anxious & palpitations. Discussed with AZAR Medeiros prior to discharge. Patient stated he was going to [facility] ER to be evaluated. To Dr. Griggs for review. Vitals: 10/28/23 1037 10/28/23 1038 BP: 70/52 (!) 62/40 BP Location: Right arm Right arm Patient Position: Lying Lying Pulse: (!) 121 Weight: 136 kg (299 lb) Height: 1.88 m (6' 2 ) documented in this [facility] Work Phone: 1(857) 625-226702-01-2024 [facility] History of Present illness Narrative* Angel Griggs MD - 10/18/2023 9:30 AM EST Alex Thakkar is a 58 y.o. male Chief Complaint Follow-up HPI Patient is in the office with her daughter for follow-up for the problems noted below. Last month he underwent ablation by Dr. Villeda in [place]. He is on amiodarone and Eliquis and was found to be in atrial flutter with heart rate just over 100 bpm today. He continues to have orthostatic blood pressure changes despite being on midodrine. He had no syncope and no angina. He had no bleeding complications. He had a long list of concerns that he wanted to share with Dr. Villeda, his appointment last weekdid not happen since he went to the wrong place for the visit. I tried to answer all his questions to his satisfaction. Because of the atrial flutter I suggested proceeding with cardioversion later on this week which she agreed. He will remain on amiodarone and Eliquis for the time being. His examination otherwise was remarkable for obesity. Assessment/recommendations: 1-Paroxysmal atrial fibrillation. Currently in atrial flutter, he underwent ablation with Dr. Villeda in August 2023. The patient is scheduled to have cardioversion later this week trying to restore normal sinus rhythm. He remains in the vulnerable. After the ablation where he might go back and forth and this was explained to him. 2-sleep apnea intolerant to CPAP machine, patient knows that this can lead to atrial fibrillation episodes. 2-motuwu-kbewjn coronary artery disease status post angioplasty of the anterior descending artery with stent thrombosis leading to acute ST elevation myocardial infarction treated immediately with stenting. He will remain on antiplatelet therapy along with other secondary measures to prevent recurrent coronary artery disease. Nuclear stress test March 2021 revealed no ischemia but anteroseptal apical myocardial infarction 4-class II obesity, the patient was advised to continue to work on low-calorie diet to bring his BMI down. 5-diabetes this has been handled by his family physician. 6-orthostatic hypotension, with intermittent dizziness that is positional. Presently on midodrine which has been well-tolerated. He cannot tolerate compression stockings 7-peripheral neuropathy from diabetes, this is contributing to positional dizziness. 8-hyperlipidemia on atorvastatin 9-high-risk medication with antiplatelet therapy, antiarrhythmics and anticoagulants, well-tolerated 10-History of pulmonary embolism on chronic anticoagulation therapy with Eliquis, no recurrences 11-status post AICD implantation due to nonsustained V. tach and unexplained syncope. The device was placed June 2023 and he follows with EP clinic Review of Systems Review of Systems Constitutional: Positive for malaise/fatigue. Eyes: Positive for photophobia. Cardiovascular: Positive for dyspnea on exertion. Neurological: Positive for dizziness and light-headedness. All other systems reviewed and are negative. Visit Vitals BP 98/54 (BP Location: Left arm, Patient Position: Standing) Pulse 107 Ht 1.88 m (6' 2 ) Wt 136 kg (300 lb) BMI 38.52 kg/m Smoking Status Never BSA 2.66 m EKG done in office today Objective Physical Exam Constitutional: Appearance: Normal appearance. He is normal weight. HENT: Nose: Nose normal. Neck: Vascular: No carotid bruit. Cardiovascular: Rate and Rhythm: Normal rate. Rhythm irregularly irregular. Pulses: Normal pulses. Heart sounds: Normal [...] Outpatient Medications: amiodarone (Pacerone) 200 mg tablet, TAKE 1 TABLET(200 MG) BY MOUTH EVERY DAY, Disp: 90 tablet, Rfl: 1 atorvastatin (Lipitor) 80 mg tablet, Take 1 tablet (80 mg) by mouth once daily at bedtime., Disp: ,Rfl: clopidogrel (Plavix) 75 mg tablet, Take 1 tablet (75 mg) by mouth once daily., Disp: , Rfl: furosemide (Lasix) 40 mg tablet, Take 1.5 tablets (60 mg) by mouth once daily., Disp: 135 tablet, Rfl: 3 insulin aspart (NovoLOG) 100 unit/mL injection, Insulin Aspart 100 UNIT/ML SOLN Quantity: 120 Refills: 0 Start : 08-Nov-2020 Active, Disp: , Rfl: insulin glargine-yfgn (Semglee,insulin glargine-yfgn,) 100 unit/mL pen, Inject 65 Units under the skin once daily at bedtime., Disp: , Rfl: metFORMIN (Glucophage) 850 mg tablet, Take 1 tablet (850 mg) by mouth 2 times a day., Disp: , Rfl: nitroglycerin (Nitrostat) 0.4 mg SL tablet, Place 1 tablet (0.4 mg) under the tongue every 5 minutes if needed for chest pain. PLACE 1 TABLET UNDER THE TONGUE EVERY 5 MINUTES FOR UP TO 3 DOSES NEEDED FOR CHEST PAIN.CALL 911 IF PAIN PERSISTS., Disp: , Rfl: omeprazole (PriLOSEC) [address] capsule, Take 2 capsules (40 mg) by mouth once daily. Do not crush or chew., Disp: , Rfl: Ozempic 2 mg/dose (8 mg/3 mL) pen injector, INJECT 2 MG UNDER THE SKIN EVERY WEEK, Disp: , Rfl: potassium chloride CR 20 mEq ER tablet, 1 tablet (20 mEq) once daily., Disp: , Rfl: apixaban (Eliquis) 5 mg tablet, Take 1 tablet (5 mg) by mouth 2 times a day., Disp: 180 tablet, Rfl: 3 metoprolol succinate XL (Toprol-XL) 25 mg 24 hr tablet, Take 1 tablet (25 mg) by mouth once daily. Do not crush or chew., Disp: 90 tablet, Rfl: 3 midodrine (Proamatine) 10 mg tablet, Take 1 tablet (10 mg) by mouth 3 times a day., Disp: 270 tablet, Rfl: 3 Assessment/Plan 1. Atrial flutter, unspecified type (CMS/HCC) 2. Paroxysmal atrial fibrillation (CMS/HCC) Follow Up In Cardiology Follow Up In Cardiology ECG 12 Lead Cardioversion External apixaban (Eliquis) 5 mg tablet metoprolol succinate XL (Toprol-XL) 25 mg 24 hr tablet 3. H/O cardiac radiofrequency ablation Follow Up In Cardiology 4. 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Follow Up In Cardiology 5. Ischemic cardiomyopathy Follow Up In Cardiology metoprolol succinate XL (Toprol-XL) 25 mg 24 hr tablet 6. Ventricular tachycardia, nonsustained (CMS/HCC) 7. S/P implantation of automatic cardioverter/defibrillator (AICD) 8. Essential hypertension 9. Stage 3 chronic kidney disease, unspecified whether stage 3a or 3b CKD (CMS/HCC) 10. Mixed hyperlipidemia 11. Type 2 diabetes mellitus with neurological manifestation (CMS/HCC) 12. Atrial fibrillation (CMS/HCC) apixaban (Eliquis) 5 mg tablet 13. Hypotension, unspecified hypotension type midodrine (Proamatine) 10 mg tablet Scribe Attestation By signing my name below, I, [email or web address] , Scribe attest that this documentation has been prepared under the direction and in the presence of Angel Griggs MD. [facility] Work Phone: 1(507) 979-888501-30-2024 Instructions* Patient Instructions* Zakiya Mccray LPN - 10/18/2023 9:30 AM EST Please bring all medicines, vitamins, and herbal supplements with you when you come to the office. Prescriptions will not be filled unless you are compliant with your follow up appointments or have a follow up appointment scheduled as per instruction of your physician. Refills should be requested at the time of your visit. Cardioversion this week Same medmary Villeda as scheduled. Follow up 6 months documented in this [facility]St[facility] Work Phone: 1([phone]) 432-462512-13-2023 Plan of care note* Care Plan - Yonathan Nunez RN - 08/31/2023 5:16 PM EST Problem: Fall/Injury Goal: Not fall by end [...] devices by end of the shift 08/31/2023 171 by Yonathan Nunez RN Outcome: Progressing 08/31/20231715 by Yonathan Nunez RN Outcome: Progressing Goal: Pace activities to prevent fatigue by end of the shift 08/31/2023 171 by Yonathan Nunez RN Outcome: Progressing 08/31/20231715 by Yonathan Nunez RN Outcome: Progressing The clinical goals for the shift include rest and comfort [facility]12-13-2023 Miscellaneous Notes* Care Plan - Yonathan Nunez RN - 08/31/2023 5:16 PM EST Problem: Fall/Injury Goal: Not fall by end of shift 08/31/2023 1716 by Yonathan Nunez RN Outcome: Progressing 08/31/2023 1716 by Yonathan Nunez RN Outcome: Progressing Goal: Be free from injury by end of the shift 08/31/2023 1716 by Yonathan Nunez RN Outcome: Progressing 08/31/20231715 by Yonathan Nunez RN Outcome: Progressing Goal: [...] fatigue by end of the shift 08/31/2023 171 by Yonathan Nunez RN Outcome: Progressing 08/31/2023 171 by Yonathan Nunez RN Outcome: Progressing The clinical goals for the shift include rest and comfort * Care Plan - Alicia Jimenez RN - 08/29/2023 10:10 PM EST The patient's goals for the shift include stay in NSR The clinical goals for the shift include rest and comfort Problem: Fall/Injury Goal: Not fall by end of shift Outcome: Progressing Goal: Be free from injury by end of the shift Outcome: Progressing Goal: Verbalize understanding of personal risk factors for fall in the hospital Outcome: Progressing documented in this [facility] Work Phone: 1([phone]) 283-851512-12-2023 History of Present illness Narrative* Nathan Au DO - 08/30/2023 12:54 PM EST Harriett Thakkar is a 58 y.o. male [...] rate 22, height 1.88 m (6' 2 ),weight 146 kg (321 lb 14 oz), SpO2 [...] another night under observation. Nathan Au DO * Raquel Jarvis RN - 08/30/2023 11:40 AM EST Attempted to call into patients room and cell phone with no answer. Patient from home. Patient in extended recovery after a cardiac ablation for A-fib. documented in this [facility]St[facility] Work Phone: [phone]) 370-456412-11-2023 Plan of care note* Care Plan - Alicia Jimenez RN - 08/29/2023 10:10 PM EST The patient's goals for the shift include stay in NSR The clinical goals for the shift include rest and comfort Problem: Fall/Injury Goal: Not fall by end of shift Outcome: Progressing Goal: Be free from injury by end of the shift Outcome: Progressing Goal: Verbalize understanding of personal risk factors for fall in the hospital Outcome: Progressing [facility] Work Phone: [phone]) 690-764812-11-2023 Nurse Note* Alisha Cid RN - 08/29/2023 7:41 PM EST Report called to 8th floor RNedwin stable. IV patent and patient has all belongings. [facility] Nurse Note* Alisha Cid RN - 08/29/2023 7:41 PM EST Report called to 8th floor edwin ASKEW stable. IV patent and patient has all belongings. documented in this encounterSt[facility] Work Phone: [phone] 254-412512-11-2023 History and physical note* RICHARD Chacon - 08/29/2023 7:20 AM EST History and Physical Pre Surgical Review (> 30 days) Subjective Patient is a 58 y.o. male who presents to [facility] on with atrialfibrillation for an ablation. Recently underwent AICD implantation [...] His palpitations have improved. The patients regular photoresist printer referred the patient to EP for AF [...] Dual Implant; Surgeon: Lior Villeda MD; Location: [facility] Cardiac Clothing Sorter; Service: Electrophysiology; Laterality: N/A; CORONARY STENT PLACEMENT [...] choking, chest tightness, shortness of breath, wheezing andstridor. Cardiovascular: Negative for chest pain, palpitations and [...] SOLN Quantity: 120 Refills: 0 Start : 20-Feb-2021 Active insulin glargine-yfgn (Semglee,insulin glargine-yfgn,) 100 unit/mL [...] Villeda. EKG today confirming AF. RICHARD Chacon [facility] Work Phone: 1(773) 559-555812-11-2023 History and physical note* RICHARD Chacon - 08/29/2023 7:20 AM EST History and Physical Pre Surgical Review (> 30 days) Subjective Patient is a 58 y.o. male who presents to [facility] on with atrialfibrillation for an ablation. Recently underwent AICD implantation [...] His palpitations have improved. The patients regular photoresist printer referred the patient to EP for AF Ablation. Past Medical History: Diagnosis Date Arrhythmia Atrial fibrillation (CMS/HCC) Diabetes mellitus ([facility]/HCC) Myocardial infarction (CMS/HCC) Personal history of other specified conditions History of dizziness Personal history of other specified conditions History of dyspnea Pulmonary embolism (CMS/HCC) Sleep apnea Past Surgical History: Procedure Laterality Date CARDIAC CATHETERIZATION CARDIAC ELECTROPHYSIOLOGY PROCEDURE N/A 06/29/2023 Procedure: ICD Dual Implant; Surgeon: Lior Villeda MD; Location: [facility] Cardiac Clothing Sorter; Service: Electrophysiology; Laterality: N/A; CORONARY STENT PLACEMENT [...] choking, chest tightness, shortness of breath, wheezing andstridor. Cardiovascular: Negative for chest pain, palpitations and [...] confirming AF. RICHARD Chacon documented in [facility] Work Phone: [phone]) 355-396711-15-2023 Evaluation note* Encounter Date Diagnosis Assessment Notes [...] his procedure. Seen by Joyce Chen PharmD Candidate/Jama Lopez PharmD [facility] Other 10-24-2023 History of Present illness Narrative* Angel Griggs MD - 07/12/2023 9:40 AM EDT Alex Thakkar is a 58 y.o. male Chief [...] this can lead to atrial fibrillation episodes. 9-yweggd-smelnk coronary artery disease status post angioplasty of [...] 5 mg tablet, Take as directed by [facility] coumadin clinic, Disp: , Rfl: metoprolol succinate XL (Toprol-XL) 25 mg 24 hr tablet, Take 1 tablet (25 mg) by mouth once daily. Do not crush or chew., Disp: 30 tablet, Rfl: 1 Assessment/Plan 1. Paroxysmal atrial fibrillation (CMS/HCC) ECG 12 Lead Follow Up In Cardiology metoprolol succinate XL (Toprol-XL) 25 mg 24 hr tablet 2. 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Follow Up In Cardiology 3. History of PTCA 4. History of NV (myocardial infarction) 5. Ischemic cardiomyopathy metoprolol succinate XL (Toprol-XL) 25 mg 24 hr tablet 6. Ventricular tachycardia, nonsustained (CMS/HCC) 7. S/P implantation of automatic cardioverter/defibrillator (AICD) 8. Essential hypertension 9. Hyperlipidemia, unspecified hyperlipidemia type 10. Orthostatic hypotension documented in this encounterSt. [facility] Hospital Work Phone: [phone]) 869-365810-24-2023 Instructions* Patient Instructions* Zakiya Mccray LPN - [...] with Dr.Jain Scottie sands. documented in this encounterSt. [facility] Hospital Work Phone: [phone]) 679-186610-18-2023 Evaluation note* Encounter Date Diagnosis Assessment Notes [...] his next appt. Seen by Farnaz Collazo [facility] Other 10-12-2023 History of Present illness Narrative* [...] verified with patient. PCP: Dr. Amador Pharmacy: [facility] [place] Insurance: [facility] Patient is diabetic, checks blood sugar 3-4 times a day at home, has working glucometer/supplies. Patient has declined any home going needs and plans to return home today. documented in this encounterSt. [facility] Work Phone: [phone]) 329-438210-12-2023 Hospital Discharge instructions* Discharge Instructions* RICHARD Felix [...] Metformin 07/01/23. - Please follow up with [facility] as scheduled. documented in this encounterSt. [facility] Hospital Work Phone: [phone]) 301-914010-12-2023 Plan of care note* Care Plan - [...] Recommendations to address these barriers include education. [facility] Miscellaneous Notes* Care Plan - Ina [...] these barriers include education. documented in this encounterSt. [facility] Work Phone: [phone]) 861-232410-11-2023 Nurse Note* Minoo Hernandez RN - 06/29/2023 6:55 PM EDT Patient arrived on unit from cathode builder. Patient is A&Ox3 on room air, lungs [...] in reach bed i n lowest position. [facility] Work Phone: [phone] Nurse Note* Minoo Hernandez RN - 06/29/2023 6:55 PM EDT Patient arrived on unit from cathode builder. Patient is A&Ox3 on room air, lungs [...] stable. Pt transferred to 8th floor by cathode builder RN. * Geneva Oquendo RN - 06/29/2023 2:15 PM EDT 1415: Blood glucose result 140 documented in this [facility] Work Phone: 1(217) 905-654210-11-2023 Nurse Note* Leandra Lei RN - 06/29/2023 5:45 PM EDT Nursing report called to RN on 8th floor Minoo, final left chest site assessment and vital signs stable. Pt transferred to 8th floor by cathode builder RN. [facility] Nurse Note* Geneva Oquendo RN - 06/29/2023 2:15 PM EDT 1415: Blood glucose result 140 [facility] Work Phone: [phone] 856-601410-11-2023 History and physical note* RICHARD Felix - [...] NSVT and unexplained syncope. The presents to [facility] today, 06/29/2023 for ICD insertion for secondary [...] 5 mg tablet Take as directed by [facility] coumadin clinic Physical Exam Physical Exam Constitutional: [...] COVID-19 what the risks are. RICHARD Felix [facility] Work Phone: [phone]) 784-281410-11-2023 History and physical note* RICHARD Felix - [...] NSVT and unexplained syncope. The presents to [facility] today, 06/29/2023 for ICD insertion for secondary [...] 5 mg tablet Take as directed by [facility] coumadin clinic Physical Exam Physical Exam Constitutional: [...] COVID-19 what the risks are. Lorene Vernon APRN-HAND POTTER documented in this encounterSt. [facility] Work Phone: [phone]) [phone] Evaluation note* Encounter Date Diagnosis Assessment Notes [...] of normal. Seen by Jama Lopez PharmD [facility] Other 09-18-2023 Evaluation note* Encounter Date Diagnosis [...] reach surgeon's office, Dr. Villeda at in [place] to clarify. Seen by Jama Lopez PharmD [facility] Other 09-06-2023 Evaluation note* Encounter Date Diagnosis [...] is on hold. Patient instructed to notify [facility] if they begin having fluid overload/swelling and is instructed to resume furosemide. Patient reports they will be having a defibrillation procedure, tentatively on 06/13, requiring a 5 day hold of warfarin and clopidogrel at in [place] with Dr. Villeda. Patient states they need confirmation from the surgeon of this and will call [facility]. Seen by Sanjuana Armstrong, BernieD/Jama Lopez, Araseli [facility] Other 08-24-2023 Evaluation note* Encounter Date Diagnosis [...] bruising or bleeding. Seen by Letty Shaw, [facility] Other 08-14-2023 Evaluation note* Encounter Date Diagnosis Assessment Notes Treatment Notes Treatment Clinical Notes Apr, Medication monitoring encounter (ICD-10 - Z51.81) Referring Provider: Angel Griggs Diagnosis: Atrial Fibrillation INR Goal: 2-3 INR: 3.7 Warfarin Tablet Size: 5mg Tuesday: 5mg Tuesday: [...] no abnormal bruising or bleeding. Seen by Bernie OscarD Candidate/Letty Shaw john [facility] [email or web address] Other 07-31-2023 Evaluation note* Encounter Date Diagnosis [...] Seen by Bernie RodriguezD Candidate/Jama Lopez PharmD [facility] [email or web address] Other 07-17-2023 Progress note Author Derrek Tay [facility] April 04, 2023 11:33am Note Date/Time April 04, 2023 11:1 5am [facility] [address] [place] [address] Hospitalist Progress Note Signed Patient: Harriett Thakkar MR#: [id number] : 1965 Acct:[id number] Age/Sex: 58 / M Adm Date: 3 Loc: Room: [address] [place] [address] Type: ADM INOo Attending Dr: Derrek Tay [...] <Electronically signed by Derrek Tay DO> 04/04/23 1133 [facility] Work Phone: [phone]) 651-563207-16-2023 Progress note Author Toy Yeager [facility] April 03, 2023 1:05pm Note Date/Time April 03, 2023 1:06 pm [facility] [address] [place] [address] Hospitalist Progress Note Signed Patient: Harriett Thakkar MR#: [id number] : 1965 Acct:[id number] Age/Sex: 58 / M Adm Date: 3 Loc: Room: [address] [place] [address] Type: ADM INOo Attending Dr: Toy Yeager [...] arms. Patient was shopping last night at [email or web address] and started feeling above symptoms which are very similar to the heart attack that he had in 2020. Patient rested last night but then woke [...] <Electronically signed by Toy Yeager MD> 04/03/23 2569 [facility] Work Phone: [phone]) 729-844207-16-2023 Consult note Author Dallas Em [facility] April 03, 2023 12:31pm Note Date/Time April 03, 2023 12:2 1pm [facility] [address] [place] [address] Cardiology Consult Note Signed Patient: Harriett Thakkar MR#: [id number] : 1965 Acct:[id number] Age/Sex: 58 / M Adm Date: 3 Loc: 3T Room: [address] [place] [address] Type: ADM INOo Attending Dr: Toy Yeager [...] shoulder pressure while he was shopping at [email or web address]. He rested with improvement of his symptoms. [...] x10E3/uL Lymph # (Auto) 1.6 (1.00-4.8) x10E3/uL [place] # (Auto) 0.7 (0.0-0.8) x10E3/uL Eos # [...] signed by MD Dallas Em> 04/03/23 1231 [facility] Work Phone: 1(201) [phone] History and physical note Author Toy Yeager [facility] April 02, 2023 5:21pm Note Date/Time April 02, 2023 5:16 pm [facility] [address] [place] [address] Hospitalist H&P Signed Patient: Harriett Thakkar MR#: [id number] : 1965 Acct:[id number] Age/Sex: 58 / M Adm Date: 3 Loc: Room: [address] [place] [address] Type: ADM INOo Attending Dr: Toy Yeager [...] bilateralarms. Patient was shopping last night at [email or web address] and started feeling above symptoms which are [...] % (Auto) 18.7 % (.) 04/02/23 09:56 [place] % (Auto) 9.6 % (.) 04/02/23 09:56 Eos % (Auto) 3.0 % (.) 04/02/23 09:56 Baso % (Auto) 1.0 % (.) 04/02/23 09:56 Nucleat RBC Rel Count 0.2 /100 WBC (0-0.5) 04/02/23 09:56 Neut # (Auto) 5.3 x10E3/uL (1.8-7.7) 04/02/23 09:56 Lymph # (Auto) 1.5 x10E3/uL (1.00-4.8) 04/02/23 09:56 [place] # (Auto) 0.8 x10E3/uL (0.0-0.8) 04/02/23 09:56 [...] 2 Documented By: Toy Yeager MD 04/02/23 1708 Signed By: <Electronically signed by Toy Yeager MD> 04/02/23 1721 [facility] Work Phone: [phone]) [phone] Evaluation note* Encounter Date Diagnosis Assessment Notes [...] by Mala Downing, PharmD Candidate/Radha Lopez PharmD [employer] Other 05-31-2023 Evaluation note* Encounter Date Diagnosis [...] in 4 weeks. Seen by Letty Shaw [facility] Other 05-09-2023 Evaluation note* Encounter Date Diagnosis [...] in early January. Seen by Letty Shaw, [facility] Other 04-27-2023 Evaluation note* Encounter Date Diagnosis [...] the elevated INR. Patient reminded to call [facility] when a new medication is [...] in early January. Seen by Letty Shaw, [facility] Other 04-13-2023 Evaluation note* Encounter Date Diagnosis Assessment Notes Treatment Notes Treatment Clinical Notes Dec, Medication monitoring encounter (ICD-10 - Z51.81) Referring Provider: Angel Griggs Diagnosis: Atrial Fibrillation INR Goal: 2-3 INR: 2.5 Warfarin Tablet Size: 5mg Tuesday: 5mg Tuesday: [...] early January. Seen by Jama Lopez PharmD [facility] Other 04-06-2023 Evaluation note* Encounter Date Diagnosis [...] the skin lesion. Seen by Letty Shaw [facility] [email or web address] Other 03-29-2023 Evaluation note* Encounter Date Diagnosis [...] the above recommendations. Instructed patient to call [facility] if he has further issues after being evaluated at Urgent Care/Emergency Room. Seen by Jama Lopez PharmD [facility] Other 03-16-2023 Evaluation note* Encounter Date Diagnosis [...] chronic issue. Seen by Jama Lopez PharmD [facility] Other 02-13-2023 Evaluation note* Encounter Date Diagnosis [...] Jama Lopez PharmD, Jaylin Wright PharmD Candidate [facility] Other 01-16-2023 Evaluation note* Encounter Date Diagnosis Assessment Notes Treatment Notes Treatment Clinical Notes Sep, Medication monitoring encounter (ICD-10 - Z51.81) Referring Provider: Angel Griggs Diagnosis: Atrial Fibrillation INR Goal: 2-3 INR: 1.6 Warfarin Tablet Size: 5mg Fabiano: 5mg Tuesday: 7.5mg Tuesday: 5mg Tuesday: 7.5mg : 5mg Tuesday: 7.5mg Tuesday: 5mg Total Weekly Dose: 42.5mg Boost an additional 2.5mg today and tomorrow, then continue current plan. Follow up in 4 weeks per patient preference. Patient states he missed dose 3 days ago, reason for low INR. Seen by Ugo Connelly PharmD [facility] Other 11-07-2022 Evaluation note* Encounter Date Diagnosis [...] 5 weeks. Seen by Ugo Connelly PharmD [facility] Other 10-03-2022 Evaluation note* Encounter Date Diagnosis Assessment Notes Treatment Notes Treatment Clinical Notes Jun, Medication monitoring encounter (ICD-10 - Z51.81) Referring Provider: Angel Griggs Diagnosis: Atrial Fibrillation INR Goal: 2-3 INR: 1.9 Warfarin Tablet Size: 5mg Tuesday: 5mg Tuesday: 7.5mg Tuesday: 5mg Tuesday: 7.5mg : 5mg Tuesday: 7.5mg Tuesday: 5mg Total Weekly Dose: 42.5mg Boost additional 2.5mg , Thursday 06/21 due to missing dose last night. Continue current plan. Follow up in 5 weeks. A prescription for warfarin is called into [facility] in [place]. Seen by Marta Hernandez RN [facility] Other 08-29-2022 Evaluation note* Encounter Date Diagnosis Assessment Notes Treatment Notes Treatment Clinical Notes Apr, Medication monitoring encounter (ICD-10 - Z51.81) Referring Provider: Angel Griggs Diagnosis: Atrial Fibrillation INR Goal: 2-3 INR: 3.1 Tablet Size: 5mg Fabiano: 5mg Tuesday: 7.5mg Tuesday: 5mg Tuesday: 7.5mg : 5mg Tuesday: 7.5mg Tuesday: 5mg Total Weekly Dose: 42.5mg Reduce to 5mg tonight, Thursday 05/17 and then continue current plan. Follow up in 5 weeks. Patient is taking doxycyline for 10 days, no interaction with warfarin. Seen by Marta Hernandez RN [facility] Other 07-20-2022 Evaluation note* Encounter Date Diagnosis [...] 5 weeks. Seen by Marta Hernandez RN [facility] Other 06-22-2022 Evaluation note* Encounter Date Diagnosis Assessment Notes Treatment Notes Treatment Clinical Notes Feb, Medication monitoring encounter (ICD-10 - Z51.81) Referring Provider: Angel Griggs Diagnosis: Atrial Fibrillation INR Goal: 2-3 INR: 2.7 Tablet Size: 5mg Fabiano: 5mg Elder: 7.5mg Sheron: 5mg Tuesday: 7.5mg : 5mg Tuesday: 7.5mg Tuesday: 5mg Total Weekly Dose: 42.5mg Continue current plan. Follow up in 4 weeks. Seen by Marta Hernandez RN [facility] Other 05-25-2022 Evaluation note* Encounter Date Diagnosis [...] INSTRUCTIONS: Please take as instructed above. Notify [facility] Anticoagulation Clinic [phone] option 5 for the following: -Call immediately [...] person tells you to adjust your warfarin. [facility] Other 04-27-2022 Evaluation note* Encounter Date Diagnosis [...] A prescription for warfarin is called into [facility] in [place] and put on hold. Seen by Marta Hernandez RN [facility] Other 03-30-2022 Evaluation note* Encounter Date Diagnosis Assessment Notes Treatment Notes Treatment Clinical Notes Nov, Medication monitoring encounter (ICD-10 - Z51.81) Referring Provider: Angel Griggs Diagnosis: Atrial Fibrillation INR Goal: 2-3 INR: 2.7 Tablet Size: 5mg Fabiano: 5mg Tuesday: 7.5mg Tuesday: 5mg Tuesday: 7.5mg : 5mg Tuesday: 7.5mg Tuesday: 5mg Total Weekly Dose: 42.5mg Continue current plan. Follow up in 4 weeks. Seen by Rhiannon James LPN [facility] [email or web address] Other 03-03-2022 Evaluation note* Encounter Date Diagnosis [...] Patient's 11/14/21. Seen by Marta Hernandez RN [facility] Other 02-01-2022 Evaluation note* Encounter Date Diagnosis Assessment Notes Treatment Notes Treatment Clinical Notes Oct, Medication monitoring encounter (ICD-10 - Z51.81) Referring Provider: Angel Griggs Diagnosis: Atrial Fibrillation INR Goal: 2-3 INR: 1.7 Tablet Size: 5mg Fabiano: 5mg Tuesday: 7.5mg Tuesday: 5mg Tuesday: 7.5mg : 5mg Tuesday: 7.5mg Tuesday: 5mg Total Weekly Dose: 42.5mg Boost additional 2.5mg today then continue current plan. Follow-up in 4 weeks per patient preference. Seen by Marta Hernandez RN [facility] Other 01-04-2022 Evaluation note* Encounter Date Diagnosis Assessment Notes Treatment Notes Treatment Clinical Notes Sep, Medication monitoring encounter (ICD-10 - Z51.81) Referring Provider: Angel Griggs Diagnosis: Atrial Fibrillation INR Goal: 2-3 INR: 2.7 Tablet Size: 5mg Fabiano: 5mg Tuesday: 7.5mg Tuesday: 5mg Tuesday: 7.5mg : 5mg Tuesday: 7.5mg Tuesday: 5mg Total Weekly Dose: 42.5mg Continue current plan. Follow-up in 4 weeks per patient preference. Seen by Ugo Connelly PharmD [facility] Other 12-06-2021 Evaluation note* Encounter Date Diagnosis [...] patient preference. Seen by Ugo Connelly PharmD [facility] Other 11-03-2021 Evaluation note* Encounter Date Diagnosis Assessment Notes Treatment Notes Treatment Clinical Notes Jul, Medication monitoring encounter (ICD-10 - Z51.81) Referring Provider: Angel Griggs Diagnosis: Atrial Fibrillation INR Goal: 2-3 INR: 1.6 Tablet Size: 5mg Fabiano: 5mg Tuesday: 7.5mg Tuesday: 5mg Tuesday: 5mg : 5mg Tuesday: 7.5mg Tuesday: 5mg Total Weekly Dose: 40mg Boost to 7.5mg today, then begin new plan, a 7% increase. Follow-up in 2 weeks. Patient prefers Tuesday late afternoon for appointments. Seen by Ugo Connelly PharmD [facility] Other 10-27-2021 Evaluation note* Encounter Date Diagnosis Assessment Notes Treatment Notes Treatment Clinical Notes Jun, Medication monitoring encounter (ICD-10 - Z51.81) Referring Provider: Angel Griggs Diagnosis: Atrial Fibrillation INR Goal: 2-3 INR: 3.4 Tablet Size: 5mg Fabiano: 5mg Tuesday: 7.5mg Tuesday: 5mg Tuesday: 5mg : 5mg Tuesday: 7.5mg Tuesday: 5mg Total Weekly Dose: 40mg Begin new plan, a 6% decrease. Follow-up in 1 week. Patient prefers Tuesday late afternoon for appointments. Seen by Ugo Connelly PharmD [facility] Other 10-06-2021 Evaluation note* Encounter Date Diagnosis Assessment Notes Treatment Notes Treatment Clinical Notes Jun, Medication monitoring encounter (ICD-10 - Z51.81) Referring Provider: Angel Griggs Diagnosis: Atrial Fibrillation INR Goal: 2-3 INR: 3.5 Tablet Size: 5mg Tuesday: 5mg Tuesday: 7.5mg Tuesday: 5mg Tuesday: 7.5mg : 5mg Tuesday: 7.5mg Tuesday: 5mg Total Weekly Dose: 42.5mg Hold today, then continue above plan. Follow-up in 3 weeks per patient preference. Patient prefers Tuesday late afternoon for appointments. Seen by Ugo Connelly PharmD [facility] Other [facility] complaint Narrative - ReportedHARRIETT THAKKAR is being seen for a consultation for atrial fibrillation and ICD eval. [facility] Work Phone: consult note Author Dallas Em [facility] April 03, 2023 12:31pm Note Date/Time April 03, 2023 12:2 1pm [facility] [address] [place] [address] Cardiology Consult Note Signed Patient: Harriett Thakkar MR#: [id number] : 1965 Acct:[id number] Age/Sex: 58 / M Adm Date: 3 Loc: Room: [address] [place] [address] Type: ADM INOo Attending Dr: Toy Yeager [...] shoulder pressure while he was shopping at [email or web address]. He rested with improvement of his symptoms. [...] x10E3/uL Lymph # (Auto) 1.6 (1.00-4.8) x10E3/uL [place] # (Auto) 0.7 (0.0-0.8) x10E3/uL Eos # [...] signed by MD Dallas Em> 04/03/23 1231 [facility] Work Phone: Discharge summary Author Derrek Tay [facility] April 05, 2023 5:24pm Note Date/Time April 05, 2023 5:22 pm [facility] [address] [place] [address] Discharge Summary Signed Patient: Harriett Thakkar MR#: [id number] : 1965 Acct:[id number] Age/Sex: 58 / M Adm Date: 3 Loc: Room: [address] [place] [address]: Derrek Tay DO Copies to: [...] pressure, he has a history of prior NV and states that they feel similar. In the emergency room his cardiac enzymes are negative and there is initial work-up was normal however he was subsequent mated hospital for further evaluation and treatment due [...] UNITS UNDER THE SKIN DAILY Follow Up: [facility] Coumadin Clinic [Outside] - 04/11/23 11:00 am (Please keep previously scheduled follow up appointment for the following date and time, please call to reschedule if needed.) [facility] [Outside] (The office is aware of your [...] day.) Documented By: Derrek Tay DO 04/05/23 1719 Signed By: <Electronically signed by Derrek Tay DO> 04/05/23 1724 [facility] Work Phone: Discharge summary Author Angel Griggs [facility] October 20, 2023 1:51pm Note Date/Time October 20, 2023 1 :51pm [facility] [address] [place] [id number] Discharge Summary Signed Patient: Harriett Thakkar MR#: [id number] : 1965 Acct:[id number] Age/Sex: 58 / M Adm Date: 4 Loc: PO Room: Attending Dr: Angel Griggs MD Copies to: Angel Griggs MD, [facility] Toby Amador MD~ Providers Date of Discharge: 10/20/23 Discharging Provider: Angel Griggs Primary Care Provider: Toby Amador Discharge Diagnosis Final Diagnosis Final Discharge Diagnosis: Successful cardioversion from atrial flutter to normal sinus rhythm Summary Hospital Course Hospital course: Outpatient procedure Time Spent with Patient Time spent providing/coordinating discharge services (# min): 20 Diagnostic Studies Completed and Pending Studies Pending studies at discharge: 10/20/23 12:45 Prothrombin Time INR Stat Labs on day of discharge: 10/20/23 12:48: Sodium 140, Potassium 4.1, Chloride 104, Carbon Dioxide 27.9, Anion Gap 12.2 Exam Physical Exam Vital Signs: O2 Del Method Room Air 10/20/23 13:04 Discharge Plan Discharge Plan Patient Disposition: Home Activity: Ambulate as Tolerated Comment: Do not drive a car for the next 24 hours Diet: Low-Fat, Low-Sodium and Low-Cholesterol Prescriptions: Continued metformin 850 mg tablet 850 mg PO BID Patient Comments: TK 1 T PO BID insulin aspart U-100 100 unit/mL solution See Rx Instructions .ROUTE .COMPLEX Patient Comments: sliding scale Rx Instructions: 150-200=3, 200-250=6, 250-300=9, 300-350=12, 350-400=15 plus half as many insulin as carbs eaten. atorvastatin 80 mg Tablet 80 mg PO QPM 30 Days Qty: 30 12RF nitroglycerin [Nitrostat] 0.4 mg Tablet, Sublingual 0.4 mg SUBLINGUAL Q5-15M PRN (Reason: Angina) 30 Days Qty: 25 3RF insulin aspart U-100 100 unit/mL (3 mL) Insulin Pen See Protocol SUBCUT AC Protocol: Carb Coverage Insulin 1:2 gm CHO Protocol Text: *Carb coverage 1:2* Give 1 unit of rapid-acting insulin for every 2 gm of carbohydrates eaten at meals clopidogrel 75 mg tablet 75 mg PO DAILY furosemide 20 mg tablet 60 mg PO DAILY Patient Comments: TK 1 T PO D potassium chloride 10 mEq Capsule, Extended Release 20 meq PO DAILY midodrine 2.5 mg tablet 5 mg PO TID Patient Comments: TAKE 1 TABLET BY MOUTH THREE TIMES DAILY Ozempic 1 mg/dose (4 mg/3 mL) pen injector 2 mg SUBCUT QWEEK Patient Comments: INJECT 1MG UNDER THE SKIN ONE DAY A WEEK Rx Instructions: tuesday insulin glargine-yfgn [Semglee(insulin glargine-yfgn)] 100 unit/mL solution 50 unit SUBCUT DAILY Patient Comments: ADMINISTER 60 UNITS UNDER THE SKIN DAILY amiodarone 200 mg tablet 200 mg PO DAILY Eliquis 5 mg tablet 5 mg PO Q12H metoprolol succinate 25 mg tablet extended release 24 hr 25 mg PO DAILY Documented By: Angel Griggs MD, [facility] 4 1350 Signed By: <Electronically signed by MD SAYDA Griggs> 10/20/23 1351 [facility] Work Phone: Evaluation noteNo [employer] Other Evaluation noteNo assessment information available [facility] Work Phone: Evaluation note* Diagnosis Onset Date Resolution Status Chest pressure acute [facility] Work Phone: Evaluation note* Diagnosis Onset Date Resolution Status Abnormal QT interval present on electrocardiogram acute Chest pressure acute CKD (chronic kidney disease) stage 3, GFR 30-59 ml/min acute Diabetes mellitus acute Dyspnea acute History of PTCA 1 acute Hyperlipidemia acute Orthostatic hypotension acut e Paroxysmal atrial fibrillation acute Sleep apnea acute [facility] Work Phone: Evaluation note* Diagnosis Atrial [...] (CMS/HCC) Atrial fibrillation documented in this encounter [facility] Work Phone: Evaluation note* Diagnosis Atrial fibrillation (CMS/HCC) Atrial fibrillation Paroxysmal atrial fibrillation (CMS/HCC) Atrial fibrillation 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 History of PTCA Postsurgical percutaneous transluminal coronary angioplasty status History of NV (myocardial infarction) Old myocardial infarction Ischemic cardiomyopathy Other specified forms of chronic ischemic heart disease Ventricular tachycardia, nonsustained (CMS/HCC) S/P implantation of automatic cardioverter/defibrillator (AICD) Automatic implantable cardiac defibrillator in situ Essential hypertension Unspecified essential hypertension Hyperlipidemia, unspecified hyperlipidemia type Orthostatic hypotension Atrial fibrillation (CMS/HCC) Atrial fibrillation documented in this encounter [facility] Work Phone: Evaluation note* Diagnosis Atrial fibrillation (CMS/HCC) Atrial fibrillation Primary cardiomyopathy (CMS/HCC) Other primary cardiomyopathies Atrial fibrillation (CMS/HCC) Atrial fibrillation documented in this encounter [facility] Work Phone: Evaluation note* Diagnosis Atrial fibrillation (CMS/HCC) Atrial fibrillation Presence of automatic cardioverter/defibrillator (AICD) Automatic implantable cardiac defibrillator in situ Ventricular tachycardia, nonsustained (CMS/HCC) Atrial fibrillation (CMS/HCC) Atrial fibrillation documented in this encounter [facility] Work Phone: Evaluation note* Diagnosis Atrial fibrillation (CMS/HCC) Atrial fibrillation Presence of automatic cardioverter/defibrillator (AICD) Automatic implantable cardiac defibrillator in situ Ventricular tachycardia, nonsustained (CMS/HCC) Atrial fibrillation (CMS/HCC) Atrial fibrillation documented in this encounter [facility] Work Phone: Evaluation note* Diagnosis Atrial fibrillation (CMS/HCC)- Primary Atrial fibrillation Atrial fibrillation (CMS/HCC) Atrial fibrillation Ischemic cardiomyopathy Other specified forms of chronic ischemic heart disease Atrial fibrillation (CMS/HCC) Atrial fibrillation documented in this encounter [facility] Work Phone: Evaluation note* Diagnosis Atrial flutter, unspecified type (CMS/HCC) Paroxysmal atrial fibrillation (CMS/HCC) Atrial fibrillation H/O cardiac radiofrequency ablation 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 Ischemic cardiomyopathy Other specified forms of chronic ischemic heart disease Ventricular tachycardia, nonsustained (CMS/HCC) S/P implantation of automatic cardioverter/defibrillator (AICD) Automatic implantable cardiac defibrillator in situ Essential hypertension Unspecified essential hypertension Stage 3 chronic kidney disease, unspecified whether stage 3a or 3b CKD (CMS/HCC) Mixed hyperlipidemia 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 Work Phone: Evaluation note* Diagnosis Ventricular tachycardia, nonsustained (CMS/HCC) Presence of automatic cardioverter/defibrillator (AICD) Automatic implantable cardiac defibrillator in situ documented in this encounter [facility] Work Phone: Evaluation note* Diagnosis Dyspnea on exertion Other dyspnea and respiratory abnormality Ischemic cardiomyopathy Other specified forms of chronic ischemic heart disease documented in this encounter [facility] Work Phone: Evaluation note* Diagnosis Paroxysmal atrial fibrillation with rapid ventricular response (CMS/HCC) documented in this encounter [facility] Work Phone: Evaluation note* Diagnosis Onset Date Resolution Status Atrial fibrillation with RVR acute [facility] Work Phone: Evaluation note* Diagnosis Onset Date Resolution Status Atrial fibrillation with RVR acute Diabetes mellitus acute Hypomagnesemia acute [facility] Work Phone: Evaluation note* Diagnosis Ventricular tachycardia, nonsustained (CMS/HCC) Presence of automatic cardioverter/defibrillator (AICD) Automatic implantable cardiac defibrillator in situ documented in this encounter [facility] Work Phone: Evaluation note* Diagnosis Presence of automatic cardioverter/defibrillator (AICD) Automatic implantable cardiac defibrillator in situ Ventricular tachycardia, nonsustained (CMS/HCC) documented in this encounter [facility] Work Phone: Evaluation note* Diagnosis History of NV (myocardial infarction) Old myocardial infarction Paroxysmal atrial fibrillation (CMS/HCC) Atrial fibrillation documented in this encounter [facility] Work Phone: History and physical note Author Toy Yeager [facility] April 02, 2023 5:21pm Note Date/Time April 02, 2023 5:16 pm [facility] [address] [place] [address] Hospitalist H&P Signed Patient: Harriett Thakkar MR#: [id number] : 1965 Acct:[id number] Age/Sex: 58 / M Adm Date: 3 Loc: Room: [address] [place] [address] Type: ADM INOo Attending Dr: Toy Yeager [...] bilateralarms. Patient was shopping last night at [email or web address] and started feeling above symptoms which are [...] % (Auto) 18.7 % (.) 04/02/23 09:56 [place] % (Auto) 9.6 % (.) 04/02/23 09:56 Eos % (Auto) 3.0 % (.) 04/02/23 09:56 Baso % (Auto) 1.0 % (.) 04/02/23 09:56 Nucleat RBC Rel Count 0.2 /100 WBC (0-0.5) 04/02/23 09:56 Neut # (Auto) 5.3 x10E3/uL (1.8-7.7) 04/02/23 09:56 Lymph # (Auto) 1.5 x10E3/uL (1.00-4.8) 04/02/23 09:56 [place] # (Auto) 0.8 x10E3/uL (0.0-0.8) 04/02/23 09:56 [...] Toy Yeager MD> 04/02/23 1721 [facility] Work Phone: History general Narrative - Reported* Type Description Date Medical History HTN Medical History Hypercholesterolemia Medical History DM Medical History PVD WITH ULCER Medical History CAD w/NV Surgical History Heart Catheterization 2012 Surgical History Diskectomy-cervical Surgical History toe amputations x 4 Hospitalization History See past surgical hx Animoto [facility] Work [facility]: Hospital Discharge instructions Additional Instructions Follow-up with your primary care doctor Return to ED for develop worsening symptoms or [facility] Work Phone: Hospital Discharge instructions Additional Instructions No driving for 24 hours. No making big decisions today. You recieved conscious sedation. Maintain appointments, and continue medication as ordered.[facility] Work Phone: Hospital Discharge instructions Additional Instructions you can buy over the counter Magox 400 mg and take one tablet [facility] Work Phone: Progress note Author Toy Yeager [facility] April 03, 2023 1:05pm Note Date/Time April 03, 2023 1:06 pm [facility] [address] [place] [address] Hospitalist Progress Note Signed Patient: Harriett Thakkar MR#: [id number] : 1965 Acct:[id number] Age/Sex: 58 / M Adm Date: 3 Loc: Room: [address] [place] [address] Type: ADM INOo Attending Dr: Toy Yeager [...] arms. Patient was shopping last night at [email or web address] and started feeling above symptoms which are [...] Capsule PO 04/01/24 20:59 100 mg BID RAHDA Administration Dofetilide 500 mcg 04/02/23 21:00 04/03/23 [...] <Electronically signed by Toy Yeager MD> 04/03/23 5823 [facility] Work Phone: Progress note Author Derrek Tay [facility] April 04, 2023 11:33am Note Date/Time April 04, 2023 11:1 5am [facility] [address] [place] [address] Hospitalist Progress Note Signed Patient: Harriett Thakkar MR#: [id number] : 1965 Acct:[id number] Age/Sex: 58 / M Adm Date: 3 Loc: Room: [address] [place] [address] Type: ADM INOo Attending Dr: Derrek Tay [...] Dose Route Start Last Admin Trade Name Huanq PRN Reason Stop Dose Admin Acetaminophen 650 [...] <Electronically signed by Derrek Tay DO> 04/04/[address] [place] [address] Ctr Work Phone: Progress note [facility] April 04, 2023 6:25pm Note Date/Time April 04, 2023 6:25 pm [facility] [address] [place] [address] Cardiology Progress Note Signed Patient: Harriett Thakkar MR#: [id number] : 1965 Acct:[id number] Age/Sex: 58 / M Adm Date: 3 Loc: Room: [address] [place] [address] Type: ADM INOo Attending Dr: Derrek Tay [...] will try tomake arrangements for referral to [facility]. Meanwhile I discussed with him also [...] % (Auto) 66.2 Lymph % (Auto) 20.2 [place] % (Auto) 9.8 Eos % (Auto) 3.1 Baso % (Auto) 0.7 Nucleat RBC Rel Count 0.1 Neut # (Auto) 4.1 Lymph # (Auto) 1.3 [place] # (Auto) 0.6 Eos # (Auto) 0.2 [...] MPV Neut % (Auto) Lymph % (Auto) [place] % (Auto) Eos % (Auto) Baso % (Auto) Nucleat RBC Rel Count Neut # (Auto) Lymph # (Auto) [place] # (Auto) Eos # (Auto) Baso # [...] 500 ms Documented By: Angel Griggs MD, [facility] 3 1816 Signed By: <Electronically signed by MD SAYDA Griggs> 04/04/23 1825 [facility] Work Phone: Reason for referral (narrative)* Consultation (Routine) - Authorized Specialty Diagnoses / Procedures Referred By Contac t Referred To Contact Cardiology Diagnoses Paroxysmal atrial fibrillation (CMS/HCC) 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 Procedures Follow Up In Cardiology Angel Griggs MD [address] [facility] 2, [address] [address] Angel Griggs MD [address] [place] [address] [address], [address] [address] Referral ID Status Reason Start Date Expiration Date V isits Requested Visits Authorized [id number] Authorized 07/12/2023 07/11/2024 1 1 * Cardiovascular (Routine) - Pending Review Specialty Diagnoses / Procedures Referred By Contac t Referred To Contact Diagnoses Paroxysmal atrial fibrillation (CMS/HCC) Procedures ECG 12 Lead Angel Griggs MD [address] [place] [address] 2, [address] [address] Referral ID Status Reason Start Date Expiration Date V isits Requested Visits Authorized [id number] Pending Review 07/12/2023 07/11/[address] [facility] Work Phone: Reason for visit NarrativeFCCC Potential Procedure 06/13[place] [employer] Other Chief Complaint * HARRIETT THAKKAR is [...] a visit to the emergency department at [facility] for palpitations and was found to be [...] monitor done in March 2022 at the [facility]. I willtry to retrieve a copy of [...] Specified Diabetes mellitus Unknown brother Hypertension Unknown Heart disease Unknown Unknown Chief Complaint and Reason for Visit Chief [...] Sleep apnea Chief Complaint AFIB sob-sent by Chief Complaint AFIB sob-sent by dr estrella Chief Complaint AFIB sob-sent by dr estrella dizzy Reason for Visit Atrial fibrillation with RVR Chief Complaint AFIB sob-sent by dr estrella dizzy dizzy Reason for Visit Atrial fibrillation with RVR Diabetes mellitus Hypomagnesemia Advance Directives No Advanced Directives Records Found [...] Contac t Referred To Contact Cardiology Diagnoses Dyspnea on exertion Ischemic cardiomyopathy Procedures Transthoracic Echo Limited ND ECHO TRANSTHORC R-T 2D W/WO M-MODE REC F-UP/LMTD ND DOP ECHOCARD COLOR FLOW VELOCITY MAPPING ND DOP ECHOCARD PULSE WAVE W/SPECTRAL F-UP/LMTD STD Angel Griggs MD [address] [facility] 2, [address] [place] [address] Referral ID Status Reason Start Date Expiration Date Visits Requested Visits Authorized [id number] Authorized Perform Procedure 10/20/2023 10/19/2024 1 1 Specialty Diagnoses / Procedures Referred By Contac t Referred To Contact Cardiology Diagnoses Ventricular tachycardia, nonsustained (CMS/HCC) Presence of automatic cardioverter/defibrillator (AICD) Procedures Cardiac Device Check - Remote Lior Villeda MD [address] [facility] 3, [address] [place] [address] Par [id number] Cr Nonv1 [address] [facility] [address] [place] [address] Referral ID Status Reason Start Date Expiration Date Visits Requested Visits Authorized [id number] Authorized Perform Procedure 10/19/2023 10/18/2024 1 1 Specialty Diagnoses / Procedures Referred By Contac t Referred To Contact Cardiology Diagnoses Paroxysmal atrial fibrillation (CMS/HCC) Procedures Cardioversion External Angel Griggs MD [address], [address] [place] [address] Referral ID Status Reason Start Date Expiration Date V isits Requested Visits Authorized [id number] Pending Review 10/18/2023 10/17/2024 1 1 Specialty Diagnoses / Procedures Referred By Contac t Referred To Contact Diagnoses Paroxysmal atrial fibrillation (CMS/HCC) Procedures ECG 12 Lead Angel Griggs MD [address] [place] [address] 2, [address] [place], [place] [id number] Referral ID Status Reason Start Date Expiration Date V isits Requested Visits Authorized [id number] Authorized 10/18/2023 10/17/2024 1 1 Specialty Diagnoses / Procedures Referred By Contac t Referred To Contact Cardiology Diagnoses Paroxysmal atrial fibrillation (CMS/HCC) H/O cardiac radiofrequency ablation 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 Ischemic cardiomyopathy Procedures Follow Up In Cardiology Angel Griggs MD [address] [facility] 2, [place] [id number] Angel Griggs MD [address] [facility] 2, [address] [address] Referral ID Status Reason Start Date Expiration Date V isits Requested Visits Authorized [id number] Authorized 10/18/2023 10/17/2024 1 1 Specialty Diagnoses / Procedures Referred By Contac t Referred To Contact Cardiology Diagnoses Presence of automatic cardioverter/defibrillator (AICD) Ventricular tachycardia, nonsustained (CMS/HCC) Procedures Cardiac Device Check - Remote Nathan Au DO [address], [address] [place] [address] Referral ID Status Reason Start Date Expiration Date Visits Requested Visits Authorized [id number] Authorized Perform Procedure 3 12/31/2023 1 1 Specialty Diagnoses / Procedures Referred By Contac t Referred To Contact Cardiology Diagnoses Primary cardiomyopathy (CMS/HCC) Procedures Cardiac device check - Remote Nathan Au DO [address], [address] [place] [address] Referral ID Status Reason Start Date Expiration Date Visits Requested Visits Authorized [id number] Pending Review Perform Procedure 3 07/12/2024 1 1 Additional Source Comments REASON FOR VISIT (unrecogniz ed section and content) Specialty Diagnoses / Procedures Referred By Contac t Referred To Contact Diagnoses Ischemic cardiomyopathy S/P implantation of automatic cardioverter/defibrillator (AICD) Ischemic cardiomyopathy [I25.5] Procedures ICD Dual Implant Lior Villeda MD [address], [address] [address] [address] [place] [address] Referral ID Status Reason Start Date Expiration Date Visits Re quested Visits Authorized [id number] 1 1 Reason Comments Follow-up 6m Specialty Diagnoses / Procedures Referred By Contac t Referred To Contact Diagnoses Paroxysmal atrial fibrillation (CMS/HCC) Procedures ECG 12 Lead Angel Griggs MD [address] [facility] 2, [address] [address] Referral ID Status Reason Start Date Expiration Date V isits Requested Visits Authorized [id number] Pending Review 07/12/2023 07/11/2024 1 1 Specialty Diagnoses / Procedures Referred By Contac t Referred To Contact Cardiology Diagnoses Primary cardiomyopathy (CMS/HCC) Procedures Cardiac device check - Remote Nathan Au DO [address], [address] [address] Referral ID Status Reason Start Date Expiration Date Visits Requested Visits Authorized [id number] Pending Review Perform Procedure 3 07/12/2024 1 1 Specialty Diagnoses / Procedures Referred By Contac t Referred To Contact Cardiology Diagnoses Presence of automatic cardioverter/defibrillator (AICD) Ventricular tachycardia, nonsustained (CMS/HCC) Procedures Cardiac Device Check - Remote Nathan Au DO [address], [address] [address] Referral ID Status Reason Start Date Expiration Date Visits Requested Visits Authorized [id number] Authorized Perform Procedure 12/31/2023 1 1 Specialty Diagnoses / Procedures Referred By Pjac t Referred To Contact Cardiology Diagnoses Presence of automatic cardioverter/defibrillator (AICD) Ventricular tachycardia, nonsustained (CMS/HCC) Procedures Cardiac device check - In Clinic Nathan Au DO [address] [facility] 3, [address] [place] [address] [facility] [id number] Cr Nonv1 [address] [place] [address] Referral ID Status Reason Start Date Expiration Date Visits Requested Visits Authorized [id number] Authorized Perform Procedure 07/20/2023 07/19/2024 1 1 Specialty Diagnoses / Procedures Referred By Pjac t Referred To Contact Diagnoses Atrial fibrillation (CMS/HCC) ATRIAL FIB Procedures ND COMPRE EP EVAL ABLTJ ATR FIB PULM VEIN ISOLATION Ablation A-Fib Persistant Lior Villeda MD [address] [facility] 3, [address] [place] [address] [address] [place] [address] Referral ID Status Reason Start Date Expiration Date Visits Re quested Visits Authorized [id number] 1 1 Reason Comments Follow-up 3 months Specialty Diagnoses / Procedures Referred By Timothy t Referred To Contact Cardiology Diagnoses Paroxysmal atrial fibrillation (CMS/HCC) 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 Procedures Follow Up In Cardiology Angel Griggs MD [address] [facility] 2, [address] [place] [address] Angel Griggs MD [address] [facility] [address], [address] [place] [address] Referral ID Status Reason Start Date Expiration Date V isits Requested Visits Authorized [id number] Authorized 07/12/2023 07/11/2024 1 1 Specialty Diagnoses / Procedures Referred By Contac t Referred To Contact Cardiology Diagnoses Ventricular tachycardia, nonsustained (CMS/HCC) Presence of automatic cardioverter/defibrillator (AICD) Procedures Cardiac Device Check - Remote Lior Villeda MD [address] [facility] 3, [address] [place] [address] Par [id number] Cr Nonv1 [address] [facility] [address] [place] [address] Referral ID Status Reason Start Date Expiration Date Visits Requested Visits Authorized [id number] Authorized Perform Procedure 10/19/2023 10/18/2024 1 1 Specialty Diagnoses / Procedures Referred By Contac t Referred To Contact Cardiology Diagnoses Dyspnea on exertion Ischemic cardiomyopathy Procedures Transthoracic Echo Limited ND ECHO TRANSTHORC R-T 2D W/WO M-MODE REC F-UP/LMTD ND DOP ECHOCARD COLOR FLOW VELOCITY MAPPING ND DOP ECHOCARD PULSE WAVE W/SPECTRAL F-UP/LMTD STD Angel Griggs MD [address] [facility] 2, [facility] [address] [place] [address] Referral ID Status Reason Start Date Expiration Date Visits Requested Visits Authorized [id number] Authorized Perform Procedure 10/20/2023 10/19/2024 1 1 Reason Comments EKG visit Specialty Diagnoses / Procedures Referred By Contac t Referred To Contact Diagnoses Paroxysmal atrial fibrillation with rapid ventricular response (CMS/HCC) Procedures ECG 12 Lead Angel Griggs MD [address] [facility] 2, [address] [place] [address] Referral ID Status Reason Start Date Expiration Date V isits Requested Visits Authorized [id number] Authorized 10/25/2023 10/24/2024 1 1 Specialty Diagnoses / Procedures Referred By Contac t Referred To Contact Cardiology Diagnoses Ventricular tachycardia, nonsustained (CMS/HCC) Presence of automatic cardioverter/defibrillator (AICD) Procedures Cardiac device check - Remote alert Lior Villeda MD [address] [facility], [address] [place] [address] [facility] [id number] Cr Nonv1 [address] [facility] [address] [place] [phone] Referral ID Status Reason Start Date Expiration Date Visits Requested Visits Authorized [id number] Authorized Perform Procedure 11/01/2023 10/31/2024 1 1 Specialty Diagnoses / Procedures Referred By Contac t Referred To Contact Cardiology Diagnoses Presence of automatic cardioverter/defibrillator (AICD) Ventricular tachycardia, nonsustained (CMS/HCC) Procedures Cardiac Device Check - Remote Nathan Au DO [address] [facility] 3, [address] [address] [facility]2300 Nonv1 [facility] [facility] [address] [place] [phone] Referral ID Status Reason Start Date Expiration Date Visits Requested Visits Authorized [id number] Authorized Perform Procedure 3 08/09/2024 3 3 Reason Comments ekg visit Specialty Diagnoses / Procedures Referred By Contac t Referred To Contact Diagnoses Paroxysmal atrial fibrillation with rapid ventricular response (CMS/HCC) Procedures ECG 12 Lead Dallas Em MD [address]03 [facility] 2, [address] [place] [address] Referral ID Status Reason Start Date Expiration Date V isits Requested Visits Authorized [id number] Authorized 11/01/2023 10/31/2024 1 1 Care Teams (unrecognized sec tion and content) Team Status: Active Member Role Status Dates Toby Amador MD Primary Care Provider Active Team Status: Inactive Member Role Status Dates Gladys Garcia MD Primary Care Provider Active S tart: August 22, 2023 End: August 22, 2023 Angel Griggs MD Attending Provider Active St art: August 22, 2023 End: August 22, 2023 Team Status: Inactive Member Role Status Dates Toby Amador MD Primary Care Provider Active S tart: September 14, 2023 End: September 14, 2023 José Luis Coleman DO Emergency Provider Active Sta rt: September 14, 2023 End: September 14, 2023 Team Status: Inactive Member Role Status Dates Toby Amador MD Primary Care Provider Active S tart: October 20, 2023 End: October 20, 2023 Angel Griggs MD Attending Provider, Referring Provider Active Start: October 20, 2023 End: October 20, 2023 Team Status: Active Member Role Status Dates Toby Amador MD Primary Care Provider Active S tart: October 28, 2023 Dylon Weiss DO Emergency Provider Active Sta rt: October 28, 2023 Trev Salmon DO RES Active Start: October 28, 2023 Daniela Gore MD Admit Provider, Atte nding Provider, Other Provider Active Start: October 28, 2023 Darcy Rodrigez RN Other Provider Active Star t: October 28, 2023 Michael Clifford DO Other Provider Active Start : October 28, 2023 Angel Griggs MD Other Provider Active Start: October 28, 2023 Lai Bonner MD Other Provider Active Start: October 28, 2023 Dallas Em MD Other Provider Active St art: October 28, 2023 Andre Mac MD Other Provider Active Start: October 28, 2023 Lynnette Rios APRN Other Provider Active Start : October 28, 2023 Brittany Calloway MD Other Provider Active Start: ebruary 2023 Guido Romero MD Other Provider Active Start: October 28, 2023 Kelvin Koroma MD Other Provider Active Start: ebruary 2023 Raquel Baxter , [facility]- Other Provider Active Sta rt: October 28, 2023 Lyssa Jin MD Other Provider Active Start: October 28, 2023 Team Status: Inactive Member Role Status Dates Toby Amador MD Primary Care Provider Active S tart: October 29, 2023 End: October 30, 2023 Dylon Weiss DO Emergency Provider Active Sta rt: October 29, 2023 End: October 30, 2023 Trev Salmon DO RES Active Start: October 29, 2023 End: October 30, 2023 Daniela Gore MD Admit Provider, Atte nding Provider Active Start: October 29, 2023 End: October 30, 2023 Darcy Rodrigez RN Other Provider Active Star t: October 29, 2023 End: October 30, 2023 Michael Clifford DO Other Provider Active Start : October 29, 2023 End: October 30, 2023 Angel Griggs MD Other Provider Active Start: October 29, 2023 End: October 30, 2023 Lai Bonner MD Other Provider Active Start: October End: October 30, 2023 Dallas Em MD Other Provider Active St art: October 29, 2023 End: October 30, 2023 Andre Mac MD Other Provider Active Start: October 29, 2023 End: October 30, 2023 Lynnette Rios APRN Other Provider Active Start : October 29, 2023 End: October 30, 2023 Brittany Calloway MD Other Provider Active Start: 2023 End: October 30, 2023 Guido Romero MD Other Provider Active Start: October 29, 2023 End: October 30, 2023 Kelvin Koroma MD Other Provider Active Start: [id number] End: October 30, 2023 Raquel Baxter [facility] Other Provider Active Sta rt: October 29, 2023 End: October 30, 2023 Lyssa Jin MD Other Provider Active Start: October 29, 2023 End: October 30, 2023 Team Status: Inactive Member Role Status Dates Gladys Garcia MD Primary Care Provider Active Bethel Bates DO Emergency Provider Active Team Status: Inactive Member Role Status Dates Pineda Bustos DPM Attending Provider Active Team Status: Active Member Role Status Dates Gladys Garcia MD Primary Care Provider Active Angel Griggs MD Attending Provider Active Team Status: Inactive Member Role Status Dates Gladys Garcia MD Primary Care Provider Active Nimo Fu [facility]- Emergency Provider Active Team Status: Active Member Role Status Dates Toby Amador MD Primary Care Provider Active José Luis M Virginia , DO Emergency Provider Active Toy Yeager MD Admit Provider, Attending Provide r Active Team Status: Inactive Member Role Status Yordy Amador MD Primary Care Provider Active José Luis Coleman , DO Emergency Provider Active Toy Yeager MD Admit Provider Active Dallas Em MD Other Provider Active Derrek Tay , DO Attending Provider Active Silverware Buffer Relationship Specialty Start Date End Date Toby Amador MD [address] [place] [address] PCP - General 05/17/23 Silverware Buffer Relationship Specialty Start Date End Date Toby Amador MD [address] [place] [address] PCP - General 05/17/23 Lior Villeda MD [address], [facility] [address] [place] [address] Consulting Physician Cardiology 07/07/23 Silverware Buffer Relationship Specialty Start Date End Date Toby Amador MD [address] [place] [address] PCP - General 05/17/23 Lior Villeda MD [address], [address] [place] [address] Consulting Physician Cardiology 07/07/23 Silverware Buffer Relationship Specialty Start Date End Date Toby Amador MD [address] [place] [address] PCP - General 05/17/23 Lior Villeda MD [address], [address] [place] [address] Consulting Physician Cardiology 07/07/23 Silverware Buffer Relationship Specialty Start Date End Date Toby Amador MD PCP - General 05/17/23 Lior Villeda MD [address], [address] [place] [address] Consulting Physician Cardiology 07/07/23 Silverware Buffer Relationship Specialty Start Date End Date Toby Amador MD PCP - General 05/17/23 Lior Villeda MD [address], [address] [place] [address] Consulting Physician Cardiology 07/07/23 Silverware Buffer Relationship Specialty Start Date End Date Toby Amador MD PCP - General 05/17/23 Lior Villeda MD [address], [address] [place] [address] Consulting Physician Cardiology 07/07/23 Silverware Buffer Relationship Specialty Start Date End Date Toby Amador MD PCP - General 05/17/23 Lior Villeda MD [address], [address] [place] [address] Consulting Physician Cardiology 07/07/23 Team Status: Inactive Member Role Status Dates Toby Amador MD Primary Care Provider Active José Luis Coleman , Emergency Provider Active Silverware Buffer Relationship Specialty Start Date End Date Toby Amador MD PCP - General 05/17/23 Lior Villeda MD [address], [address] [place] [address] Consulting Physician Cardiology 07/07/23 Silverware Buffer Relationship Specialty Start Date End Date Toby Amador MD PCP - General 05/17/23 Lior Villeda MD [address], [address] [place] [address] Consulting Physician Cardiology 07/07/23 Silverware Buffer Relationship Specialty Start Date End Date Toby Amador MD PCP - General 05/17/23 Lior Villeda MD [address], [address] [place] [address] Consulting Physician Cardiology 07/07/23 Silverware Buffer Relationship Specialty Start Date End Date Toby Amador MD PCP - General 05/17/23 Lior Villeda MD [address], [address] [place] [address] Consulting Physician Cardiology 07/07/23 Team Status: Active Member Role Status Dates Gladys Garcia MD Primary Care Provider Active S tart: August 22, 2023 Angel Griggs MD Attending Provider Active St art: August 22, 2023 Silverware Buffer Relationship Specialty Start Date End Date Toby Amador MD PCP - General 05/17/23 Lior Villeda MD [address] [facility] [address], [address] [place] [address] Consulting Physician Cardiology 07/07/23 Silverware Buffer Relationship Specialty Start Date End Date Toby Amador MD [address] [place] [address] PCP - General 05/17/23 Lior Villeda MD [address] [facility] [address], [address] [place] [address] Consulting Physician Cardiology 07/07/23 Team Status: Active Member Role Status Dates Toby Amador MD Primary Care Provider Active S tart: October 28, 2023 Dylon Weiss DO Emergency Provider Active Sta rt: October 28, 2023 Trev Salmon DO RES Active Start: October 28, 2023 Daniela Gore MD Admit Provider, Atte nding Provider Active Start: October 28, 2023 Team Status: Inactive Member Role Status Dates Toby Amador MD Primary Care Provider Active S tart: October 28, 2023 End: October 30, 2023 Dylon Weiss DO Emergency Provider Active Sta rt: October 28, 2023 End: October 30, 2023 Trev Salmon DO RES Active Start: October 28, 2023 End: October 30, 2023 Daniela Gore MD Admit Provider, Atte nding Provider Active Start: October 28, 2023 End: October 30, 2023 Darcy Rodrigez RN Other Provider Active Star t: October 28, 2023 End: October 30, 2023 Michael Clifford DO Other Provider Active Start : October 28, 2023 End: October 30, 2023 Angel Griggs MD Other Provider Active Start: October 28, 2023 End: October 30, 2023 Lai Bonner MD Other Provider Active Start: October 28, 2023 End: October 30, 2023 Dallas Em MD Other Provider Active St art: October 28, 2023 End: October 30, 2023 Andre Mac MD Other Provider Active Start: October 28, 2023 End: October 30, 2023 Lynnette Rios APRN Other Provider Active Start: October 28, 2023 End: October 30, 2023 Brittany Calloway MD Other Provider Active Start: ebruary 2023 End: October 30, 2023 Guido Romero MD Other Provider Active Start: October 28, 2023 End: October 30, 2023 Kelvin Koroma MD Other Provider Active Start: [id number] End: October 30, 2023 Raquel Baxter , [facility] Other Provider Active Sta rt: October 28, 2023 End: October 30, 2023 Lyssa Jin MD Other Provider Active Start: October 28, 2023 End: October 30, 2023 Team Status: Active Member Role Status Dates Toby Amador MD Primary Care Provider Active S tart: October 28, 2023 Dylon Weiss DO Emergency Provider Active Sta rt: October 28, 2023 Trev Salmon DO RES Active Start: October 28, 2023 Daniela Gore MD Admit Provider, Atte nding Provider, Other Provider Active Start: October 28, 2023 Darcy Rodrigez RN Other Provider Active Star t: October 28, 2023 Michael Clifford DO Other Provider Active Start : October 28, 2023 Angel Griggs MD Other Provider Active Start: October 28, 2023 Lai Bonner MD Other Provider Active Start: October 28, 2023 Dallas Em MD Other Provider Active St art: October 28, 2023 Andre Mac MD Other Provider Active Start: October 28, 2023 Lynnette Rios APRN Other Provider Active Start: October 28, 2023 Brittany Calloway MD Other Provider Active Start: ebruary 2023 Guido Romero MD Other Provider Active Start: October 28, 2023 Kelvin Koroma MD Other Provider Active Start: ebruary [address] [facility]- Other Provider Active Sta rt: October 28, 2023 Lyssa Jin MD Other Provider Active Start: October 28, 2023 Team Status: Inactive Member Role Status Dates Toby Amador MD Primary Care Provider Active S tart: October 29, 2023 End: October 30, 2023 Dylon Weiss DO Emergency Provider Active Sta rt: October 29, 2023 End: October 30, 2023 Trev Salmon DO RES Active Start: October 29, 2023 End: October 30, 2023 Daniela Gore MD Admit Provider, Atte nding Provider Active Start: October 29, 2023 End: October 30, 2023 Darcy Rodrigez RN Other Provider Active Star t: October 29, 2023 End: October 30, 2023 Michael Clifford DO Other Provider Active Start : October 29, 2023 End: October 30, 2023 Angel Griggs MD Other Provider Active Start: October 29, 2023 End: October 30, 2023 Lai Bonner MD Other Provider Active Start: October End: October 30, 2023 Dallas Em MD Other Provider Active St art: October 29, 2023 End: October 30, 2023 Andre Mac MD Other Provider Active Start: October 29, 2023 End: October 30, 2023 Lynnette Rios APRN Other Provider Active Start: October 29, 2023 End: October 30, 2023 Brittany Calloway MD Other Provider Active Start: [id number] End: October 30, 2023 Guido Romero MD Other Provider Active Start: October 29, 2023 End: October 30, 2023 Kelvin Koroma MD Other Provider Active Start: eb2023 End: October 30, 2023 Raquel Baxter [facility] Other Provider Active Sta rt: October 29, 2023 End: October 30, 2023 Lyssa Jin MD Other Provider Active Start: October 29, 2023 End: October 30, 2023 Silverware Buffer Relationship Specialty Start Date End Date Toby Amador MD [address] [place] [id number] PCP - General 05/17/23 Lior Villeda MD [address], [facility] [address] [place] [address] Consulting Physician Cardiology 07/07/23 Silverware Buffer Relationship Specialty Start Date End Date Toby Amador MD [address] [place] [id number] PCP - General 05/17/23 Lior Villeda MD [address] [facility] [address], [facility] [address] [place] [address] Consulting Physician Cardiology 07/07/23 Silverware Buffer Relationship Specialty Start Date End Date Toby Amador MD [address] [place] [address] PCP - General 05/17/23 Lior Villeda MD [address] [facility] [address], [facility] [address] [place] [address] Consulting Physician Cardiology 07/07/23 Goals (unrecognized section [...] content) DATE CREATED AUTHOR 12/28/2022 [facility] DATE CREATED AUTHOR AUTHOR'S ORGANIZ ATION 01/20/2023 [facility] DATE CREATED AUTHOR AUTHOR'S ORGANIZ ATION 05/25/2023 [facility] DATE CREATED AUTHOR AUTHOR'S ORGANIZ ATION 06/22/2023 [facility] DATE CREATED AUTHOR AUTHOR'S ORGANIZ ATION 08/14/2023 [facility] DATE CREATED AUTHOR AUTHOR'S ORGANIZ ATION 10/08/2023 [facility] ica Center DATE CREATED AUTHOR AUTHOR'S ORGANIZ ATION 11/03/2023 [facility] DATE CREATED AUTHOR AUTHOR'S ORGANIZ ATION 11/18/2023 [facility] DATE CREATED AUTHOR AUTHOR'S ORGANIZ ATION 11/24/2023 [facility] EPIC DATE CREATED AUTHOR AUTHOR'S ORGANIZ ATION 11/24/2023 [facility] DATE CREATED AUTHOR AUTHOR'S ORGANIZ ATION 11/25/2023 [facility] Scheduled Active and Recently Administ ered Medications (unrecognized section and content) Medication Order 06/28/2023 06/29/2023 06/30/2023 amiodarone (Pacerone) tablet 200 mg 200 mg, oral, 2 times daily, First dose on Tue06/30/23 at 0900 0919 (Given - Provid er: Minoo Hernandez RN)2099 (Due) atorvastatin (Lipitor) tablet 80 mg 80 mg, oral, Nightly, First dose on Tue06/29/23 at 2100 2152 (Given - Provider: Ina Turner RN) 2099 (Due) furosemide (Lasix) tablet 40 mg 40 mg, oral, Daily, First dose on Tue06/29/23 at 1745 1745 (Not Given - Provider: Minoo Hernandez RN - Reason: Patient/family refused - Comment: Patient does not want this medication at night time - he will take next dose tomorrow morning) 0839 (Given - Provider: Minoo Hernandez, AZAR) glipiZIDE (Glucotrol) tablet 5 mg (CANCELED) 5 [...] at 2130 2151 (Given - Provider: Ina Turner RN) 2100 (Due) insulin lispro (HumaLOG) injection 0-5 [...] indicated for vasopressor sparing in the ICU. 1819 (Given - Provider: Minoo Hernandez RN) 0203 (Given - Provider: Ina Turner RN)0839 (Given - Provider: Minoo Hernandez RN)1400 (Due - Provider: Manuel Saldana, BernieD) potassium chloride CR (Klor-Con M20) ER tablet 20 mEq 20 mEq, oral, Daily, First dose on Carly 06/30/23 at 0900, Best given with food and [...] Joe Daley RN)1510 (Given - Provider: Joe Daley, AZAR)1525 (Given - Provider: Joe Daley, AZAR)1553 (Given - Provider: Joe Daley, RN) nitroglycerin (Nitrostat) SL tablet 0.4 mg 0.4 [...] pain scores based on patient preference? Yes 2199 (Given - Provider: Ina Turner RN) Scheduled Medication Order 08/29/2023 08/30/2023 08/31/2023 amiodarone (Pacerone) tablet 200 mg 200 mg, oral, Daily, First dose on Tue08/29/23 at 2030 2030 (Not Given - Provider: Alicia Jimenez RN - Reason: See Provider Order) 0905 (Given - Provider: Lai Cabrera RN) 0900 (Given - Provider: Yonathan Nunez, AZAR) apixaban (Eliquis) tablet 5 mg 5 mg, oral, Every 12 hours, First dose on Tue08/29/23 at 2030 2122 (Given - Provider: Alicia Jimenez RN) 09 (Given - Provider: Lai Cabrera RN)2120 (Given - Provider: Arina Laird, AZAR) 0859 (Given - Provider: Yonathan Nunez RN)2029 (Due) atorvastatin (Lipitor) tablet 80 mg 80 mg, oral, Nightly, First dose on Tue08/29/23 at 2100 2122 (Given - Provider: Alicia Jimenez, AZAR) 2120 (Given - Provider: Arina Laird RN) 2099 (Due) clopidogrel (Plavix) tablet 75 mg 75 mg, oral, Daily, First dose on Tue08/29/23 at 2030 2030 (Not Given - Provider: Alicia Jimenez RN - Reason: Post-procedure) 0906 (Given - Provider: Lai Cabrera RN) 0900 (Given - Provider: Yonathan Nunez, AZAR) colchicine tablet 0.6 mg 0.6 mg, oral, [...] Daily, First dose on Tue08/29/23 at 2029 2029 (Not Given - Provider: Alicia Jimenez [...] Provider: Alicia Jimenez RN - Reason: Post-procedure) 09 (Given - Provider: Lai Cabrera RN - Comment: lior) 0859 (Given - Provider: Yonathan Nunez, AZAR) sennosides-docusate sodium (Sylwia-Colace) 8.6-50 mg per tablet 2 tablet 2 tablet, oral, 2 times daily, First dose on Tue08/29/23 at 2100, Bowel Regimen - for prevention of constipation Hold for loose stools 1954 (MAR Hold - Provider: Automatic Transfer Provider - Reason: Unreviewed Transfer Orders)2027 (MAR Unhold - Provider: Alicia Jimenez, RN)2099 (Not Given - Provider: Alicia Jimenez RN - Reason: Patient/family refused) 09 (Given - Provider: Lai Cabrera RN)2120 (Given - Provider: Arina Laird RN) 0859 (Given - Provider: Yonathan Nunez RN)2100 (Due) sodium phosphates (Fleets) 19-7 gram/118 mL [...] Prophylaxis 0846 (Given - Provider: Tabitha Denis APRN-ONCOLOGY COORDINATOR) Continuous Medication Order 08/29/2023 08/30/2023 08/31/2023 lactated [...] Starting on Tue08/29/23 at 2027, For 1 dose, Discontinue once blood glucose [...] BE BASED ON THE PRIMARY CLINICAL RECORDS. [facility] [employer] [facility]. provides no warranty or guarantee of the accuracy or completeness of information in this document.
[2023-11-26 10:45] LABS: Basophils Percent Auto 0.7 % (0.2-2.0); Eosinophils Absolute Auto 0.2 10^3/uL (0.0-0.7); Eosinophils Percent Auto 3.9 % (0.9-7.0); Hematocrit 39.9 % (42.0-54.0); Hemoglobin 12.7 g/dL (14.0-18.0); Immature Granulocytes Abs Auto 0.03 10^3/uL (0.00-0.03); Immature Granulocytes Pct Auto 0.5 % (0.0-0.5); Lymphocytes Absolute Auto 0.8 10^3/uL (1.2-3.8); Lymphocytes Percent Auto 13.8 % (20.5-60.0); Mean Corpuscular HGB Conc 31.8 g/dL (29.9-35.2); Mean Corpuscular Hemoglobin 31.9 pg (25.9-34.0); Mean Corpuscular Volume 100.3 fL (80.0-94.0); Monocytes Absolute Auto 0.4 10^3/uL (0.3-0.8); Monocytes Percent Auto 7.3 % (1.7-12.0); Neutrophils Absolute Auto 4.4 10^3/uL (1.4-6.5); Neutrophils Percent Auto 73.8 % (43.0-75.0); Platelet Count 206 10^3/uL (150-450); Red Blood Count 3.98 10^6/uL (4.70-6.10); Red Cell Distribution Width 15.9 % (11.0-15.0); White Blood Count 5.9 10^3/uL (4.0-11.0)
[2023-11-26 11:42] LABS: Alanine Aminotransferase 25 U/L (16-63); Albumin Globulin Ratio 0.9; Albumin Level 3.2 g/dL (3.4-5.0); Alkaline Phosphatase 88 U/L (46-116); Anion Gap 11.5; Aspartate Amino Transferase 16 U/L (15-37); BUN Creatinine Ratio 15.7; Bilirubin Total 0.8 mg/dL (0.2-1.0); C Reactive Protein <0.50 mg/dL (<=0.50); Calcium 9.1 mg/dL (8.5-10.1); Carbon Dioxide 31.2 mmol/L (21.0-32.0); Chloride 104 mmol/L (98-107); Erythrocyte Sedimentation Rate 30 mm/hr (<=20); Estimated GFR (African America >60 (>=60); Estimated GFR (Non-African Ame 52 (>=60); Globulin 3.5 g/dL; Glucose 135 mg/dL (74-106); Potassium 4.7 mmol/L (3.5-5.1); Prealbumin 23.5 mg/dL (20.9-45.5); Sodium 142 mmol/L (136-145); Total Protein 6.7 g/dL (6.4-8.2)
== END 2023-11-26 10:30 | disposition home or self-care (01) ==
LOC: LAB 10:30
PROVIDERS: PCP Family Medicine; Visit Provider Podiatrist
DX: E11.622 Type 2 diabetes mellitus with other skin ulcer (principal); L97.522 Non-pressure chronic ulcer of other part of left foot with fat layer exposed; S91.112A Laceration without foreign body of left great toe without damage to nail, initial encounter; L98.499 Non-pressure chronic ulcer of skin of other sites with unspecified severity; E11.42 Type 2 diabetes mellitus with diabetic polyneuropathy
CPT/HCPCS: 36415; 80053; 84134; 85025; 85652; 86140

== ENCOUNTER 2023-12-19 11:12 | Outpatient (RCR) | payer OTHER, SELFPAY | END 2024-01-17 11:13 | disposition home or self-care (01) | LOC: MM 11:12 | PROVIDERS: PCP Family Medicine; Visit Provider Internal Medicine | DX: Z51.81 Encounter for therapeutic drug level monitoring (principal); Z79.01 Long term (current) use of anticoagulants; I48.91 Unspecified atrial fibrillation | CPT/HCPCS: 85610; G0463 ==

== ENCOUNTER 2024-01-18 07:29 | Outpatient (OUT) | payer OTHER, SELFPAY ==
--- NOTE | 2024-01-18 07:33 | US_ITS ---
[place] [id number] Patient Name: HARRIETT THAKKAR MRN: [id number] date: 1965 Sex: M Assigned Patient Location: Current Patient Location: Accession/Order Number: [id number] Exam Date: 01/18/2024 07:34 Report Date: 01/18/2024 09:34 At the request of: PJ AMADOR Procedure: US carotid duplex BI EXAMINATION: US carotid duplex BI HISTORY: Lightheaded, Orthostatic Hypotension Dysautonomic Syndrome COMPARISON: No relevant comparison available. TECHNIQUE: Duplex Doppler ultrasound analysis of carotid and vertebral arteries. . Bilateral carotid arterial duplex examination was performed using B-mode, color flow and spectral analysis. Carotid stenosis is reported according to validated velocity parameters, similar to NASCET criteria. FINDINGS: RIGHT CAROTID ARTERY Mild atherosclerotic plaque Subclavian: PSV: 108.1 cm/s cm/s EDV: 0.0 cm/s cm/s CCA: Prox: PSV: 87.9 cm/s cm/s EDV: 16.7 cm/s cm/s Mid: PSV: 77.5 cm/s cm/s EDV: 15.4 cm/s cm/s Distal: PSV: 72.3 cm/s cm/s EDV: 16.7 cm/s cm/s BULB: PSV: 45.2 cm/s cm/s EDV: 14.1 cm/s cm/s ICA: Prox: PSV: 51.6 cm/s cm/s EDV: 19.7 cm/s cm/s Mid: PSV: 74.6 cm/s cm/s EDV: 30.7 cm/s cm/s Distal: PSV: 91.7 cm/s cm/s EDV: 36.1 cm/s cm/s ECA: PSV: 111.1 cm/s cm/s EDV: 0.0 cm/s cm/s VERTEBRAL: PSV: 42.7 cm/s cm/s EDV: 16.4 cm/s cm/s, antegrade ICA/CCA ratio: PSV: 1.3 EDV: 2.2 LEFT CAROTID ARTERY moderate atherosclerotic plaque. 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 Radiology 2000; 214:247-252) Stenosis (%) PSV (cm/sec) VICA/VCCA 0-49 <150 <2.5 50-69 150-225 2.5-4.0 >70 >225 >4.0 Electronically authenticated by: LIAM MONTIEL Date: 01/18/2024 09:34
--- OUTSIDE RECORDS SUMMARY | 2024-01-18 07:33 | XMS_ITS | CCD ---
Author Organization [facility] Care Team Providers Care Appointment Manager Name Role Phone Gladys Garcia Unavailable Unavailable Unavailable Farnaz Collazo Unavailable MD Gladys Garcia Primary Care Provider DO Bethel Bates Emergency Provider [facility] NAYLA Horan Attending Provider [phone] MD Angel Griggs Attending Provider [phone] Ugo Connelly Unavailable Tabitha Shaw Unavailable Jama Lopez Unavailable MD Gladys Garcia Primary Care Provider [phone] MD Angel Griggs Attending Provider [phone] Nickie [facility] Nimo Madsen Emergency Provider NAYLA Bustos Attending [...] ., DR GLADYS Madsen Primary Care Unavailable KUBITLoretta, DR PINEDA Styles Attending Unavailable KUBITZ, DR PINEDA Styles Admitting Unavailable KUBITLoretta, DR PINEDA Styles Consulting Unavailable GARCIA ., DR GLADYS Madsen Primary Care Unavailable GLADYS GARCIA Attending Unavailable STACIE, GLADYS Madsen Attending Unavailable GLADYS GARCIA Attending Unavailable MD Gladys Garcia Primary Care Provider MD Angel Griggs Attending Provider [phone] MD Toby Amador Primary Care Provider DO José Luis Coleman Emergency Provider MD Toy Yeager Admit Provider MD Toy Yeager Attending Provider MD Dallas Em Other Provider DO Derrek Tay Attending Provider [phone] Gladys Garcia Primary Care Unavailab Angel Fang Attending Unavailable Angel Griggs Attending Unavailable Dr. Toby Amador Primary Care Noemi Amador MD, Toby Tejada Primary Care Provider Lior Villeda MD Unavailable Aba KRAUSE, Toby Tejada Primary Care Provider Aba KRAUSE, Toby Tejada Primary Care Provider U navailTOBY Juárez Primary Care Unavailfredrick Amador MD, Toby Tejada Primary Care Provider MD Gladys Garcia Primary Care Provider [phone] MD Angel Griggs Attending Provider MD Toby Amador Primary Care Provider DO José Luis Coleman Emergency Provider Dr. Toby Amador Primary Care Lior Oconnor Referring Unavailable Lior Villeda Attending Unavailable Dr. Gladys Garcia Primary Care Unavailab le Griggs, Dr. Angel [...] Dr. Gladys Kelsey Primary Care Unavailab le MD Angel Griggs Referring Provider Toby Amador MD Primary Care Provider DO Dylon Weiss Emergency Provider MD Daniela Gore Admit Provider MD Daniela Gore Attending Provider AZAR Rodrigez Other Provider Unavailable DO Michael Clifford Other Provider MD Lai Bonner Other Provider MD Dallas Em Other Provider MD Andre Mac Other Provider TITO Guerra Other Provider MD Brittany Calloway Other Provider MD Laly Romeroammed Naedmundo Other Provider MD Kelvin Koroma Other Provider Vee INSPECTOR PAWNSH[employer] DETAIL- Raquel Yousif Other Provider MD Lyssa Jin Other Provider DO Dylon Weiss Emergency Provider [phone] MD Daniela Gore Admit Provider MD Daniela Gore Attending Provider AZAR Rodrigez Other Provider Unavailable DO Michael Clifford Other Provider MD Lai Bonner Other Provider MD Dallas Em Other Provider MD Andre Mac Other Provider TITO Guerra Other Provider MD Brittany Calloway Other Provider MD Guido Romero Other Provider MD Kelvin Koroma Other Provider Vee [facility] Raquel L Other Provider MD Lyssa Jin Other Provider TITO Rios Other Provider MD Aba Toby Primary Care Provider [phone] DO José Luis Coleman Emergency Provider MD Angel Griggs Attending Provider MD Angel Griggs Referring Provider DO Dylon Weiss Emergency Provider [phone] MD Daniela Gore Admit Provider MD Daniela Gore Attending Provider AZAR Rodrigez Darcy Other Provider Unavailable DO Michael Clifford Other Provider MD Lai Bonner Other Provider MD Dallas Em Other Provider MD Andre Mac Other Provider TITO Rios Other Provider MD Brittany Calloway Other Provider MD Guido Romero Other Provider MD Kelvin Koroma Other Provider Vee [facility] Raquel L Other Provider MD Lyssa Jin Other Provider NAYLA Bustos Attending Provider MD Dallas Em Attending Provider Hirennyarohit, DO Ryley Admit Provider Lindbloom, DO Ryley Attending Provider Lindnyaoom, DO Ryley Admit Provider Lindnyaoom, DO Ryley Attending Provider MARIELENA RESTREPO Attending Unavailable NADERER, TOBY Attending Unavailable HEATHER VERA Attending Unavailable KUBITZ, PINEDA R Attending Unavailable NADERER, TOBY Attending Unavailable KUBITZ, PINEDA Styles Attending Unavailable KUBITZ, PINEDA Styles Attending Unavailable KUBITLoretta, PINEDA Styles Attending Unavailable KUBITLoretta, PINEDA Styles Attending Unavailable NADERER, TOBY Attending Unavailable RONAL, LIOR Referring Unavailable NADERER, TOBY INWOOD Primary Care Unavailabl e RAMICONE, NATHAN Sevilla Referring Unavailable NADERER, [facility] Primary Care Unavailabl e RAMICONE, NATHAN Sevilla Referring Unavailable NADERER, TOBY INWOOD Primary Care Unavailabl e RAMICONE, NATHAN Sevilla Referring Unavailable NADERER, [facility] Primary Care Unavailabl e VILLEDA, LIOR Admitting Unavailable LIOR VILLEDA Attending Unavailable NADERER, TOBY INWOOD Primary Care Unavailabl e RAMICONE, NATHAN Sevilla Referring Unavailable NADERER, TOBY INWOOD Primary Care Unavailabl e VILLEDA, LIOR Referring Unavailable NADERER, [facility] Primary Care Unavailabl e LIOR VILLEDA Referring Unavailable NADERER, TOBY INWOOD Primary Care Unavailabl e MD Toby Amador Primary Care Provider DO José Luis Coleman Emergency Provider [phone] ANGEL GRIGGS Referring Unavailable NADERER, TOBY RAMONITA Primary Care Unavailabl e Pineda Bustos Admitting Unavailable Naderer, Toby Primary Care Unavailable Pineda Bustos Attending Unavailable Dallas Em Admitting Unavailable Naderetara, Toby Primary Care Unavailable Dallas Em Referring Unavailable Trabsamuel, Dallas Attending Unavailable José Luis Coleman Admitting Unavailable José Luis Coleman Attending Unavailable [facility] Unavailable Derrek Tay Attending Unavailable Toy Yeager Admitting Unavailable [facility] Primary Care Unavailable Traboulsissyi, Mofabif Consulting Unavailable Darcy Rodrigez Consulting Unavailable Daniela Gore Admitting Unavailable [facility] Unavailable Daniela Gore Attending Unavailable Michael Clifford Consulting Unavailable Griggs, Ortiz Consulting Unavailable Lai Bonner Consulting Unavail able Trabsamuel, Mofabif Consulting Unavailable Andre Mac Consulting Unavailab Lynnette Hardy Consulting Unavailable Brittany Calloway Consulting Unavailable Guido Romero Consulting Unavailab Kelvin Hamm Consulting Unavailable aRquel Baxter Consulting Unavailable Lyssa Jin Consulting Unavailable Griggs, Ortiz Consulting Unavailable Ryley Higgins Admitting [facility]availabl e [facility] Unavailable Ryley Higgins Attending Unavailabl e Griggs, Angel Attending Unavailable Gladys Garcia Primary Care Unavailable Griggs, Ortiz Admitting Unavailable Griggs, Ortiz Referring Unavailable Griggs, Ortiz Attending Unavailable [facility] Griggs, Ortiz Admitting Unavailable [facility] Primary Care Unavailabl e LORENE VERNON Referring Unavailable [facility] Primary Care Unavailabl e GRIGGS, ANGEL M Attending Unavailable [facility] Primary Care Unavailabl e GRIGGS, ANGEL M Attending Unavailable GRIGGS, ORTIZ M Referring Unavailable [facility] Primary Care Unavailabl e GRIGGS, ORTIZ M Referring Unavailable [facility] TOBY INWOOD Primary Care Unavailabl e JOE EMF Referring Unavailable [facility] Primary Care Unavailabl e LIOR VILLEDA Attending Unavailable [facility] Primary Care Unavailabl e Allergies Allergy Classification Reported Allergen(s) Allergy Type Date of Onset Reaction(s) Facility (20 sources) Angiotensin Converting Enzyme (Paulette) Inhibitors; Translations: [PAULETTE Inhibitors] Allergy to drug (finding) 06-12-20 23 Hypotension, Cough [facility] Repository (20 sources) Penicillins; Translations: [Penicillins] Allergy to drug (finding) 03-01-[address] [facility] (20 sources) Sulfamethoxazole; Translations: [sulfa] Drug Allergy 06-12-20 23 Unknown, Rash [facility] 250 DO Work Phone: (20 sources) penicillAMINE Drug Allergy 11-19-[address] [facility] (14 sources) Sulfonamides (Antibiotic); Translations: [Sulfa (Sulfonamide Antibiotics)] Allergy to substance 03-01-[address] [facility] (1 source) Penicillins Drug allergy (disorder) 06-04-[address] [facility] Repository (1 source) Sulfamethoxazole / Trimethoprim Drug Allergy 01-27-20 [address] [facility] Repository (1 source) Sulfonamides (Antibiotic) Drug allergy (disorder) 06-04-20 [address] [facility] Repository (1 source) Penicillin; Translations: [penicillin] Drug Allergy [facility] Repository (1 source) Sulfonamides (Antibiotic); Translations: [sulfa drugs] Propensity to adverse reactions (disorder) [facility] Repository (20 sources) Angiotensin-convert ing enzyme inhibitor agent Drug Allergy 06-12-20 [address] [facility] (20 sources) Penicillins Drug Allergy 06-12-[address] [facility] Work Phone: (4 sources) Sulfamethoxazole; Translations: [SULFAMETHOXAZOLE] Drug Allergy 06-12-20 23 [facility] Repository (1 source) Angiotensin Converting Enzyme (Paulette) Inhibitors Drug allergy (disorder) 12-07-[address] [facility] Repository (1 source) penicillAMINE Drug Allergy 12-07-19 [facility] Repository (1 source) Penicillins Drug allergy (disorder) 12-07-19 [facility] Repository Medications Current Medications Medication Drug [...] based on patient preference? Yes amiodarone hydrochloride 100 mg oral tablet (20 sources) Antiarrhythmic Start: 12-09-2023 take 100 mg by mouth once daily in the morning Amiodarone Active 100 MG PO Every morning December 09, 2023 12:00am Start: 11-30-2023 End: 12-09-2023 take 200 mg by mouth twice daily Amiodarone Discontinued 200 MG PO Twice daily November 30, 2023 9:45am December 09, 2023 4:40pm Start: 10-30-2023 End: 10-31-2024 take 200 mg by mouth three times daily Amiodarone Discontinued 200 MG PO Three times daily October 30, 2023 11:22am November 30, 2023 9:45am Start: 10-04-2023 End: 10-30-2023 take 200 mg by mouth once daily Amiodarone Discontinue d 200 MG PO Daily October 19, 2023 1:00am October 30, 2023 3:29pm Start: 07-22-2023 End: 09-20-2023 amiodarone (Pacerone) 200 [...] 21 days. 42 tablet 0 06/30/2023 Active apixaban 5 mg oral tablet (20 sources) Factor Xa Inhibitor Start: 10-19-2023 End: 10-20-2023 take 1 tablet by mouth every twelve hours Apixaban (Eliquis) 5 mg tablet Active 5 MG PO Q12H 60 October 20, 2023 3:42pm Start: 08-29-2023 take 1 tablet by shaquille th every twelve hours 5 mg, oral, Every 12 hours, First dose on Tue08/29/23 at 2030 Start: 08-29-2023 End: 10-20-2024 take 1 tablet [...] Discontinued 5 MG PO Twice daily 60 November 12, 2019 11:45am March 01, 2022 8:03pm atorvastatin 80 mg oral tablet (20 sources) HMG-CoA Reductase Inhibitor Start: 06-29-2023 take 80 mg by mouth once daily 80 mg, oral, Nightly, First dose on Tue06/29/23 at 2100 Start: 11-09-2019 take 80 mg by mouth once daily in the evening Atorvastatin Active 80 MG PO Every evening November 09, 2019 1:00am calcium chloride 0.0014 meq/ml / potassium chloride 0.004 meq/ml / sodium chloride 0.103 meq/ml / sodium lactate 0.028 meq/ml injectable solution (1 source) Start: 08-29-2023 lactated Ringer's infusion citalopram 20 mg oral tablet (4 sources) Serotonin Reuptake Inhibitor Start: 11-23-2023 End: 02-21-2024 take 1 tablet by mouth once daily Citalopram (Celexa) 20 mg tablet Active 20 MG PO Daily November 30, 2023 12:00am clopidogrel 75 mg oral tablet (20 sources) P2Y12 Platelet Inhibitor Start: 07-04-2020 take 75 mg by mouth once daily Clopidogrel Active 75 MG PO Daily July 04, 2020 12:00am colchicine 0.6 mg oral tablet (2 sources) Start: 08-29-2023 End: 09-05-2023 colchicine tablet 0.6 mg docusate sodium 50 mg / sennosides, shelter 8.6 mg oral tablet (1 source) Start: 08-29-2023 take 2 tablets by mouth twice daily 2 tablet, oral, 2 times daily, First dose on Tue08/29/23 at 2100 Bowel Regimen - for prevention of constipation&nbsp ;Hold for loose stools glucagon (rdna) 1 mg injection (2 sources) Antihypoglycemic Agent Start: 08-29-2023 1 mg, intramuscular, Every 15 min PRN, low blood sugar - see comments, For blood glucose less than or equal to 70 mg/dL and no IV access, Starting on Tue08/29/23 at 8 Give until blood glucose is 100 mg/dL [...] or equal to 40 mg/dL, Starting on 10/11/23 at 1737 May repeat until blood glucose [...] ctive insulin glargine 100 unt/ml injectable solution (15 sources) Insulin Analog Start: 08-29-2023 inject 65 [...] Insulin Glargine-Yfgn (Semglee(Insulin Glargine-Yfgn)) 100 unit/mL solution (8 sources) Start: 03-01-2022 Insulin Glargi ne-Yfgn (Semglee(Insulin Glargine-Yfgn)) 100 unit/mL solution Active 35 UNIT SUBCUT Daily March 01, 2022 12:00am [...] Blood Glucose is greater than 400 mg/dL levoFLOXacin 500 mg oral tablet (3 sources) Quinolone Antimicrobial Start: 12-07-2023 take 500 mg by mouth once daily Levofloxacin Active 500 MG PO Daily December 07, 2023 12:00am linezolid 600 mg oral tablet (2 sources) Oxazolidinone Antibacterial Start: 12-07-2023 take 600 mg by mouth twice daily Linezolid Active 600 MG PO Twice daily December 07, 2023 12:00am magnesium oxide 400 mg oral tablet (16 sources) Start: 10-30-2023 End: 11-09-2024 take 400 mg by mouth once daily Magnesium Oxide Active 400 MG PO Daily October 30, 2023 1:00am Start: 04-16-2022 take 1 tablet by shaquille twice daily MAGnesium-Oxide 400 (240 Mg) MG Oral Tablet TAKE 1 TABLET BY MOUTH TWICE DAILY Quantity: 60 Refills: 0 Ordered: 20-Apr-2022 DO Start : 16-Apr-2022 Complete take 1 tablet by [facility] three times daily Magnesium Oxide 400 MG Oral Tablet TAKE 1 TABLET 3 times daily Quantity: 0 Refills: 0 Ordered: 11-Jan-2023 DO Active metFORMIN hydrochloride 850 mg oral tablet (20 sources) Biguanide Start: 08-04-2017 take 850 mg by mouth twice daily Metformin Active 850 MG PO Twice daily August 04, 2017 1:00am midodrine hydrochloride 10 mg oral tablet (20 [...] (Other) Start: 07-12-2022 take 1 tablet by [facility] three times daily Midodrine HCl - 5 MG Oral Tablet TAKE 1 TABLET 3 TIMES DAILY. Quantity: 270 Refills: 3 Ordered: 12-Jul-2022 Angel Griggs MD Start : 12-Jul-2022 Active dose increased Start: 03-01-2022 take 10 mg by mouth three times daily Midodrine Active 10 MG PO Three times daily March 01, 2022 12:00am Start: 03-01-2022 take 5 mg by mouth [...] 5 to 15 minutes November 12, 2019 11:45am Nitroglycerin 0. 4 MG as directed Sublingual Active omeprazole 40 mg delayed release oral capsule (20 sources) Proton Pump Inhibitor Start: 12-07-2023 take 40 mg by mouth once daily Omeprazole Active 40 MG PO Daily December 07, 2023 12:00am Start: 10-19-2023 End: 10-20-2023 take 40 mg by mouth once daily Omeprazole Discontinued 40 MG PO Daily October 19, 2023 1:00am October 20, 2023 1:59pm take 2 capsules by out once daily omeprazole (PriLOSEC) [address] capsule Take 2 capsules (40 mg) by mouth once daily. Do not crush or chew. 0 Active Ozempic (2 MG/DOSE) 8 MG/3ML (3 sources) inject 2 mg by subcutaneous injection every week Ozempic (2 MG/DOSE) 8 MG/3ML 2mg Subcutaneous once a week Active ozempic (2 mg/dose) 8 mg/3ml solution pen-injector (2 sources) inject 2 mg by subcutaneous injection every week Ozempic (2 MG/DOSE) 8 MG/3ML 2mg Subcutaneous once a week Active Ozempic 2 mg/dose (8 mg/3 mL) pen injector (10 sources) Start: 08-30-2023 inject 2 mg by [...] Potassium Chloride Active 20 MEQ PO Daily March 01, 2022 12:00am Start: 03-01-2022 take 10 mEq by mouth once mark y Potassium Chloride Active 10 MEQ PO Daily March 01, 2022 12:00am Start: 11-17-2020 Potassium Chlo ride ER 10 MEQ Oral Capsule Extended Release Quantity: 90 Refills: 0 Ordered: 27-Jul-2021 DO Start : 17-Nov-2020 Active Semaglutide (13 sources) Start: 03-01-2022 inject 1 mg by [...] Active tamsulosin hydrochloride 0.4 mg oral capsule (13 sources) alpha-Adrenergic Cady Start: 10-28-2023 take 1 capsule by mouth once daily Tamsulosin (Flomax) 0.4 mg capsule Active 0.4 MG PO Daily October 28, 2023 1:00am traMADol hydrochloride 50 mg oral tablet (1 source) Opioid Agonist Start: 06-29-2023 take 1 tablet by mouth every six hours as needed 50 mg, oral, Every 6 hours PRN, pain moderate (4-6), second line, Starting on Tue06/29/23 at 1640 If ordered PRN for pain, nurse is permitted to administer this medication for higher pain scores based on patient preference? Yes traZODone hydrochloride 50 mg oral tablet (4 sources) Serotonin Reuptake Inhibitor Start: 11-23-2023 take 50 mg by mouth once daily at bedtime Trazodone Active 50 MG PO Daily at bedtime November 30, 2023 12:00am Completed/Discontinued Medications Medication Drug Class(es) Dates Sig (Normalized) Sig (Original) aspirin 81 mg delayed release oral tablet (13 sources) Platelet Aggregation Inhibitor, Nonsteroidal Anti-inflammatory Drug Start: 10-19-2019 End: 07-04-2020 take 81 mg by mouth once daily Aspirin Discontinued 81 MG PO Daily October 19, 2019 1:00am July 04, 2020 12:04pm cephalexin 500 mg oral capsule (13 sources) Cephalosporin Antibacterial Start: 11-14-2020 End: 03-01-2022 take 500 mg by mouth every twelve hours Cephalexin Discontinued 500 MG PO Q12H 14 7 November 14, 2020 1:00am March 01, 2022 8:02pm clindamycin 300 mg oral capsule (1 source) Lincosamide Antibacterial Start: 05-10-2022 take 1 capsule by mouth every eight hours Clindamycin HCl - 300 MG Oral Capsule TAKE 1 CAPSULE BY MOUTH EVERY 8 HOURS FOR 10 DAYS Quantity: 30 Refills: 0 Ordered: 10-May-2022 DO Start : 10-May-2022 Complete collagenase 0.25 unt/mg topical ointment (13 sources) Collagen-specific Enzyme Start: 07-04-2020 End: 03-01-2022 Collagenase Clostridium Histo. (Santyl) 250 unit/gram ointment Discontinued 1 APPLIC TOPICAL Daily July 04, 2020 12:00am March 01, 2022 8:02pm digoxin 0.25 mg oral tablet (13 sources) Cardiac Glycoside Start: 11-12-2019 End: 03-01-2022 take 250 ug by mouth once daily Digoxin Discontinued 250 MCG PO Daily November 12, 2019 1:00am March 01, 2022 8:03pm dofetilide 0.25 mg oral capsule (20 sources) Antiarrhythmic Start: 05-17-2023 take 1 capsule by mouth twice daily Dofetilide 250 MCG Oral Capsule TAKE 1 CAPSULE TWICE DAILY. Quantity: 180 Refills: 1 Ordered: 17-May-2023 Angel Griggs MD Start : 17-May-2023 Active dose decreased Start: 05-10-2023 take 1 capsule by [facility] twice daily Dofetilide 125 MCG Oral Capsule TAKE 1 CAPSULE TWICE DAILY ALONG WITH 250 MCG = 375 MCG TWICE DAILY. Quantity: 180 Refills: 3 Ordered: 10-May-2023 Angel Griggs MD Start : 10-May-2023 Active DOSE DECREASE Start: 05-10-2023 take 1 capsule by mo [facility] twice daily Dofetilide 250 MCG Oral Capsule TAKE 1 CAPSULE TWICE DAILY ALONG WITH 125 MCG = 375 MCG TWICE DAILY. Quantity: 180 Refills: 3 Ordered: 10-May-2023 Angel Griggs MD Start : 10-May-2023 Active dose decrease Start: 11-12-2019 End: 10-20-2023 take 500 ug by mouth twice daily Dofetilide Discontinued 500 MCG PO Twice daily 60 November 12, 2019 1:00am October 20, 2023 1:59pm take 1 capsule by mo [facility] twice daily Dofetilide 125 MCG 1 capsule (with 250mg to equal 375mcg) Orally Twice a day Active take 1 capsule by mo [facility] every twelve hours Dofetilide 250 MCG 1 capsule Oral Twice a day for 30 days Active take 500 ug by mouth twice daily Dofetilide 500 MCG TK 1 C PO BID Oral for 30 Active doxycycline hyclate 50 mg oral capsule (17 sources) Tetracycline-class Drug Start: 11-30-2023 End: 12-07-2023 take 50 mg by mouth once daily Doxycycline Hyclate Discontinued 50 MG PO Daily November 30, 2023 12:00am December 07, 2023 11:58am Start: 06-30-2023 End: 07-07-2023 doxycycline (Vibramycin) 100 mg capsule Indications: S/P implantation of automatic cardioverter/defibrillator (AICD) Take 1 capsule (100 mg) by mouth 2 times a day for 7 days. Take with at least 8 ounces (large glass) of water, do not lie down for 30 minutes after 14 capsule 0 06/30/2023 07/07/2023 Active Start: 07-17-2020 End: 03-01-2022 take 100 mg by mouth twice daily Doxycycline Monohydrate Discontinued 100 MG PO Twice daily July 17, 2020 12:00am March 01, 2022 8:03pm dronedarone 400 mg oral tablet (13 sources) Antiarrhythmic Start: 10-19-2019 End: 11-12-2019 take 1 tablet by mouth twice daily Dronedarone (Multaq) 400 mg Tablet Discontinued 400 MG PO Twice daily October 19, 2019 1:00am November 12, 2019 1:06pm furosemide 40 mg oral tablet (20 sources) Loop Diuretic Start: 09-13-2023 End: 09-12-2024 take 1.5 tablets by mouth once daily furosemide (Lasix) 40 mg tablet Indications: Essential hypertension Take 1.5 tablets (60 mg) by mouth once daily. 135 tablet 3 09/13/2023 12/16/2023 Discontinued (Med List Cleanup) Start: 08-30-2023 furosemide (La six) injection 20 mg Start: 06-29-2023 take 40 mg by mouth once daily 40 mg, oral, Daily, First dose on 08/29/23 at 2030 Start: 07-04-2020 End: 12-09-2023 take 40 mg by mouth once daily Furosemide Discontinued 40 MG PO Daily July 04, 2020 12:00am December 09, 2023 4:40pm Start: 07-04-2020 take 60 mg by mouth once daily Furosemide Active 60 MG PO Daily July 04, 2020 12:00am glipiZIDE 5 mg oral tablet (1 source) [...] Glyburide Discontinued 5 MG PO Twice daily March 01, 2022 12:00am April 02, 2023 9:53am Start: 08-27-2020 End: 06-30-2023 take 1 tablet [...] MG PO Twice daily August 04, 2017 1:00am July 04, 2020 12:05pm Insulin Aspart 100 UNIT/ML SOLN (14 sources) Start: 11-08-2020 Insulin Aspart 100 UNIT/ML SOLN Quantity: 120 Refills: 0 Ordered: 13-Feb-2021 DO Start : 08-Nov-2020 Active lisinopril 5 mg oral tablet (13 sources) Angiotensin Converting Enzyme Inhibitor Start: 08-04-2017 End: 10-19-2019 take 5 mg by mouth once daily Lisinopril Discontinued 5 MG PO Daily August 04, 2017 1:00am October 19, 2019 8:39am Magnesium (13 sources) Start: 03-01-2022 End: 04-02-2023 take 200 [...] PO Daily 2 March 01, 2022 12:00am 24 hr metoprolol succinate 50 mg extended release oral tablet (20 sources) beta-Adrenergic Cady Start: 11-01-2023 End: 10-31-2024 take 1 tablet by mouth once daily metoprolol succinate XL (Toprol-XL) 50 mg 24 hr tablet Indications: Paroxysmal atrial fibrillation with rapid ventricular response (CMS/HCC) Take 1 tablet (50 mg) by mouth once daily. Do not crush or chew. 90 tablet 3 11/01/2023 12/16/2023 Discontinued (Therapy completed) Start: 10-30-2023 End: 12-09-2023 take 50 mg by mouth once daily Metoprolol Succinate Di scontinued 50 MG PO Daily October 30, 2023 11:22am December 09, 2023 4:40pm Start: 06-29-2023 End: 10-17-2024 take 25 mg by mouth once daily Metoprolol Succinate Di scontinued 25 MG PO Daily October 19, 2023 1:00am October 30, 2023 3:29pm Start: 12-16-2021 End: 06-30-2023 take 1 tablet by mouth twice daily metoprolol succinate XL (Toprol-XL) 25 mg 24 hr tablet Take 1 tablet (25 mg) by mouth 2 times a day. 0 12/16/2021 06/30/2023 Discontinued (Stop Taking at Discharge) Start: 07-04-2020 End: 10-19-2023 take 25 mg by mouth twice daily Metoprolol Succinate Discontinued 25 MG PO Twice daily July 04, 2020 12:00am October 19, 2023 11:05am Start: 07-04-2020 take 25 mg by mouth once daily Metoprolol Succinate Active 25 MG PO Daily July 04, 2020 12:00am Start: 11-12-2019 End: 07-04-2020 take 25 mg by mouth every six hours Metoprolol Tartrate Discontinued 25 MG PO Every 6 hours 120 30 November 12, 2019 1:00am July 04, 2020 12:09pm Start: 10-19-2019 End: 11-12-2019 take 50 mg by mouth once daily in the morning Metoprolol Succinate Discontinued 50 MG PO Every morning October 19, 2019 1:00am November 12, 2019 1:06pm Start: 10-19-2019 End: 11-12-2019 take 25 mg by mouth twice daily Metoprolol Tartrate Di scontinued 25 MG PO Twice daily October 19, 2019 1:00am November 12, 2019 11:45am Start: 08-04-2017 End: 10-19-2019 take 50 mg by mouth twice daily Metoprolol Tartrate Di scontinued 50 MG PO Twice daily August 04, 2017 1:00am October 19, 2019 8:41am Ozempic (0.25 or 0.5 MG/DOSE ) 2 [...] another clinician) rivaroxaban 20 mg oral tablet (13 sources) Factor Xa Inhibitor Start: 10-19-2019 End: 10-26-2019 take 1 tablet by mouth once daily Rivaroxaban (Xarelto) 20 mg Tablet Discontinued 20 MG PO Daily October 19, 2019 1:00am October 26, 2019 1:18pm rosuvastatin calcium 20 mg oral tablet (13 sources) HMG-CoA Reductase Inhibitor Start: 10-19-2019 End: 11-12-2019 take 20 mg by mouth once daily at bedtime Rosuvastatin Discontinued 20 MG PO Daily at bedtime October 19, 2019 1:00am November 12, 2019 1:06pm 0.25 mg, 0.5 mg dose 1.5 ml [...] Twice daily 180 90 November 12, 2019 11:45am July 04, 2020 12:04pm valsartan 80 mg oral tablet (13 sources) Angiotensin 2 Receptor Cady Start: 10-19-2019 End: 11-08-2019 take 80 mg by mouth once daily Valsartan Discontinued 80 MG PO Daily October 19, 2019 1:00am November 08, 2019 9:42pm warfarin sodium 7.5 mg oral tablet (20 sources) Vitamin K Antagonist Start: 12-15-2022 End: 10-20-2023 Warfarin Discontinued 7.5 MG PO As Directed December 15, 2022 12:00am October 20, 2023 1:59pm TUESDAY Start: 03-01-2022 End: 10-20-2023 take 5 mg by mouth once daily Warfarin Discontinued 5 MG PO Daily March 01, 2022 12:00am October 20, 2023 1:59pm Warfarin Sodium 5 MG Oral Tablet Take as directed by [facility] Quantity: 0 Refills: 0 Ordered: 06-Oct-2021 DO Active Problems Active Problems Problem Classification Problem Date Documented Da te Episodic/Chronic Acute bronchitis (1 source) Acute infective bronchitis; Translations: [Acute bronchitis due to other specified organisms] Onset: 09-26-2023 12-12-2023 Episodic Acute myocardial infarction (17 sources) Acute myocardial infarction of anterior wall; Translations: [ST elevation (STEMI) myocardial infarction involving other coronary artery of anterior wall] Onset: 11-10-2023 11-09-2019 Chronic Adjustment disorders (10 sources) Stress and adjustment reaction; Translations: [Adjustment disorder with other symptoms] Onset: 10-07-2023 10-07-2023 Chronic Cardiac dysrhythmias (20 sources) Paroxysmal atrial fibrillation; Translations: [Atrial fibrillation] Onset: 03-08-2023 Resolved: 12-12-2023 11-09-2019 Chronic Cardiac dysrhythmias (20 sources) Palpitations; Translations: [Palpitations] Onset: 03-12-2022 03-01-2022 [...] Onset: 12-27-2022 Chronic Coagulation and hemorrhagic disorders (13 sources) Bleeding skin; Translations: [Spontaneous ecchymoses] Onset: 11-10-2023 12-15-2022 Episodic Conduction disorders (20 sources) Automatic [...] with other diabetic neurological complication] Onset: 07-14-2021 Resolved: 12-12-2023 Chronic Diabetes mellitus without complication (20 sources) Diabetes mellitus; Translations: [Diabetes mellitus without mention of complication, type II or unspecified type, not stated as uncontrolled] Onset: 04-02-2023 11-09-2019 Chronic Disorders of lipid metabolism (20 sources) Hyperlipidemia; Translations: [Other and unspecified hyperlipidemia] Onset: 07-21-2022 04-02-2023 Chronic Essential hypertension (20 sources) Essential hypertension; Translations: [Unspecified essential hypertension] Onset: 05-02-2023 06-12-2023 Chronic Fluid and electrolyte disorders (20 sources) Acute hypokalemia; Translations: [Hypokalemia] Onset: 03-08-2023 03-01-2022 Episodic Hyperplasia of prostate (1 source) Nocturia due to benign prostatic hypertrophy; Translations: [Benign prostatic hyperplasia with lower urinary tract symptoms] Onset: 09-26-2023 12-12-2023 Chronic Infective arthritis and osteomyelitis (except that caused by tuberculosis or sexually transmitted disease) (10 sources) Osteomyelitis; Translations: [Osteomyelitis, unspecified] Onset: 03-08-2023 10-07-2023 Chronic Open wounds of extremities (10 sources) Amputated toe of left foot; Translations: [Complete traumatic amputation of one left lesser toe, initial encounter] Onset: 03-08-2023 10-07-2023 Chronic Other aftercare (20 sources) Drug therapy finding; Translations: [Long-term (current) use of other medications] Episodic Other circulatory disease (3 sources) Low blood pressure; Translations: [Hypotension, unspecified] 10-18-2023 Episodic Other circulatory disease (5 sources) Hypotension, unspecified; Translations: [Hypotension, unspecified] Onset: 10-18-2023 12-07-2023 Episodic Other circulatory disease (2 sources) Disorder of autonomic nervous system; Translations: [Orthostatic hypotension] 12-07-2023 Episodic Other connective tissue disease (14 sources) Swelling of left lower limb; Translations: [Other specified soft tissue disorders] Onset: 11-10-2023 11-14-2020 Episodic Other connective tissue disease (1 source) Recurrent falls ; Translations: [Repeated falls] 12-07-2023 Episodic Other connective tissue disease (2 sources) Repeated falls; Translations: [History of fall] Onset: 12-07-2023 12-09-2023 Episodic Other lower respiratory disease (20 sources) Dyspnea; Translations: [Dyspnea, unspecified] 11-11-2019 Episodic Other lower respiratory disease (2 sources) Other forms of dyspnea; Translations: [Other forms of dyspnea] Onset: 10-07-2023 Episodic Other nutritional; endocrine; and metabolic disorders (13 sources) Severe obesity; Translations: [Morbid obesity] Onset: 06-12-2023 10-07-2023 Chronic Other nutritional; endocrine; and metabolic disorders (20 sources) Hypomagnesemia; Translations: [Hypomagnesemia] Onset: 03-08-2023 03-01-2022 Chronic Other nutritional; endocrine; and metabolic disorders (20 sources) Obesity; Translations: [Obesity, unspecified] Onset: 06-12-2023 06-12-2023 Chronic Other nutritional; endocrine; and metabolic disorders (7 sources) Hypomagnesemia; Translations: [Disorders of magnesium metabolism] Onset: 10-29-2023 10-30-2023 Chronic Other nutritional; endocrine; and metabolic disorders (2 sources) Body mass index 30+ - obesity; Translations: [Body mass index (BMI) 38.0-38.9, adult] 12-07-2023 Chronic Other nutritional; endocrine; and metabolic disorders (3 sources) Body mass index (BMI) 38.0-38.9, adult; Translations: [Body Mass Index 38.0-38.9, adult] Onset: 12-07-2023 12-09-2023 Chronic Sylwia-; endo-; and myocarditis; cardiomyopathy (except that caused by tuberculosis or sexually transmitted disease) (17 sources) Primary cardiomyopathy; Translations: [Cardiomyopathy, unspecified] Onset: 07-13-2023 07-13-2023 Chronic Peripheral and visceral atherosclerosis (15 sources) Peripheral vascular disease; Translations: [Peripheral vascular disease, unspecified] Onset: 03-08-2023 10-07-2023 Chronic Residual codes; unclassified (20 sources) Sleep apnea; Translations: [Unspecified sleep apnea] Onset: 06-12-2023 04-04-2023 Chronic Residual codes; unclassified (2 sources) Sleep apnea, unspecified; Translations: [Unspecified sleep apnea] Onset: 04-02-2023 04-04-2023 Chronic Residual codes; unclassified (2 sources) Obstructive sleep apnea syndrome; Translations: [Obstructive sleep apnea (adult) (pediatric)] 12-07-2023 Chronic Residual codes; unclassified (3 sources) Obstructive sleep apnea (adult) (pediatric); Translations: [Obstructive sleep apnea (adult)(pediatric)] Onset: 12-07-2023 12-09-2023 Chronic Residual codes; unclassified (14 sources) Noncompliance with treatment; Translations: [Patient's noncompliance with other medical treatment and regimen] Onset: 11-10-2023 11-08-2019 Episodic Residual codes; unclassified (11 sources) History of radiofrequency ablation operation for arrhythmia; Translations: [Other specified postprocedural states] Onset: 10-18-2023 10-18-2023 Episodic Residual codes; unclassified (2 sources) Other specified postprocedural states; Translations: [Other specified postprocedural states] Onset: 10-18-2023 Episodic Unclassified (2 sources) Other ventricular tachycardia (CMS/HCC); Translations: [Other ventricular tachycardia (CMS/HCC)] Onset: 06-12-2023 Unclassified (1 source) Other ventricular tachycardia (Multi); Translations: [Other ventricular tachycardia (Multi)] Onset: 06-12-2023 Unclassified (1 source) Non-pressure chronic ulcer of other part of left foot with fat layer exposed; Translations: [Non-pressure chronic ulcer of other part of left foot with fat layer exposed] Onset: 11-22-2023 Past or Other Problems Problem Classification Problem Date Documented Date Episodic/Chronic Acquired foot deformities (10 sources) Acquired equinus deformity of foot; Translations: [...] 3 11-08-2019 Episodic Comment on above: LAD/Diagonal; Gangrene (10 sources) Gangrenous disorder; Translations: [Gangrene, not elsewhere classified] Onset: 3 10-07-2023 Episodic Nonspecific chest pain (20 sources) Chest pain; Translations: [Chest pain, unspecified] Onset: 3 04-02-2023 Episodic Other aftercare (20 sources) Encounter for therapeutic drug level monitoring; Translations: [Medication monitoring encounter Z51.81] Onset: 1 Resolved: 2 Episodic Other bone disease and musculoskeletal deformities (10 sources) History of amputation of right foot; Translations: [Acquired absence of other right toe(s)] Onset: 3 10-07-2023 Episodic Other circulatory disease (20 sources) Orthostatic hypotension; Translations: [Orthostatic hypotension] Onset: 3 04-04-2023 Episodic Other circulatory disease (7 sources) Orthostatic hypotension; Translations: [Orthostatic hypotension] Onset: 3 04-04-2023 Episodic Other connective tissue disease (10 sources) Pain in limb; Translations: [Pain in unspecified limb] Onset: 3 10-07-2023 Episodic Other hematologic conditions (10 sources) Secondary polycythemia; Translations: [Secondary polycythemia] Onset: 3 10-07-2023 Episodic Other lower respiratory disease (15 sources) H/O: respiratory disease; Translations: [Personal history of other diseases of respiratory system] Resolved: 2 Episodic Other lower respiratory disease (2 sources) Dyspnea, unspecified; Translations: [Other respiratory abnormalities] Onset: 3 04-04-2023 Episodic Other lower respiratory disease (12 sources) Dyspnea on exertion; Translations: [Other forms of dyspnea] Onset: 3 10-07-2023 Episodic Other lower respiratory disease (1 source) Shortness of breath; Translations: [Shortness of breath] Onset: 3 Episodic Other screening for suspected conditions (not mental disorders or infectious disease) (20 sources) Electrocardiogram abnormal; Translations: [Nonspecific abnormal electrocardiogram [ECG] [EKG]] Onset: 3 Resolved: 4 12-15-2022 Episodic Pulmonary heart disease (20 sources) [...] Translations: [Other ventricular tachycardia (CMS/HCC)] Onset: 3 Unclassified (1 source) Other ventricular tachycardia (Multi); Translations: [Other ventricular tachycardia (Multi)] Onset: 3 Results Test Name Value Interpretation Reference Range Facil ity ECG 12 lead (Clinic Performe d)on 12-16-2023 Sinus rhythm ventricular rate 95 QRS 80 QT 392 QTc 492 *Please refer to scanned ECG for final report* [facility] Work Phone: Cortisolon 12-09-2023 Cortisol 8.3 ug/dL Normal [facility] Comment on above: Result Comment: Refe rence range: AM 6 - 24 ug/dl PM <10 ug/dl [facility] temporary receptionist and method: [employer] DXI, POLYCLONAL ANTIBODY CORTISOL ASSAY. PERFORMED BY: [facility] [address] [place] [address] PATHOLOGIST PUMP SERVICER MELANI GUTIÉRREZ M.D. Performed By: #### G LULS #### Point of Care testing , Glucose Glucometer (dC) [M ass/Vol]Ordered By: Ryley Higgins on 12-09-2023 Glucose [Mass/Vol] 143 mg/dL [facility] Comment on above: Random Glucose Refer ence Range is dependent on time and content of last meal. Glucose of more than 200 mg/dL in a nonstressed, ambulatory subject supports the diagnosis of Diabetes Mellitus. Glucose Poct Glucometerson 0 12-09-2023 Commemt1 Glu2: Cleaned Meter Normal [facility] Comment on above: Result Comment: PERF ORMED BY: [facility] [address] [place] [address] PATHOLOGIST PUMP SERVICER MELANI GUTIÉRREZ M.D. Performed By: #### G LULS #### Point of Care testing , Glucose [Mass/Vol] 143 mg/dL Normal [facility] Comment on above: Result Comment: [place] om Glucose Reference Range is dependent on time and content of last meal. Glucose of more than 200 mg/dL in a nonstressed, ambulatory subject supports the diagnosis of Diabetes Mellitus. Performed By: #### G LULS #### Point of Care testing , Commemt1 Glu2: Cleaned Meter Normal [facility] Comment on above: Result Comment: PERF ORMED BY: [address] [place] [address] PATHOLOGIST PUMP SERVICER MELANI GUTIÉRREZ M.D. Performed By: #### G LULS #### Point of Care testing , Glucose [Mass/Vol] 140 mg/dL Normal [facility] Comment on above: Result Comment: [place] om Glucose Reference Range is dependent on time and content of last meal. Glucose of more than 200 mg/dL in a nonstressed, ambulatory subject supports the diagnosis of Diabetes Mellitus. Performed By: #### G LULS #### Point of Care testing , Glucose [Mass/Vol] 129 mg/dL Normal [facility] Comment on above: Result Comment: [place] om Glucose Reference Range is dependent on time and content of last meal. Glucose of more than 200 mg/dL in a nonstressed, ambulatory subject supports the diagnosis of Diabetes Mellitus. PERFORMED BY: [address] [place] [address] PATHOLOGIST PUMP SERVICER MELANI GUTIÉRREZ M.D. Performed By: #### G LULS #### Point of Care testing , No Panel InformationOrdered By: Ryley Higgins on 12-09-2023 Bedside Glucose Comment Glu2: cleaned meter [facility] Random cortisol measurementO rdered By: Dallas Em on 12-09-2023 Cortisol [Mass/Vol] 8.3 ug/dL [facility] Comment on above: [facility] temporary receptionist and method:[employer] DXI, POLYCLONAL ANTIBODY CORTISOL ASSAY.Reference range: AM 6 - 24 ug/dl PM <10 ug/dl A1C with Estimated Average G sandy 12-08-2023 Glucose [Mass/Vol] 120 mg/dL Normal [facility] Comment on above: Result Comment: PERF ORMED BY: [address] [place] [id number] PATHOLOGIST PUMP SERVICER MELANI GUTIÉRREZ M.D. Performed By: #### A 1C KENAN Mendes CBC, BMP ####[place] [id number] [facility] HbA1c (Bld) [Mass fraction] 5.8 % High 4.3-5.6 [facility] Comment on above: Result Comment: Incr eased risk for diabetes: 5.7 - 6.4 diabetes: >6.4 glycemic control for adults with diabetes: <7.0 Performed By: #### A Kang GRAYSON eA CBC, BMP ####[place] [id number] [address] Basic Metabolic Panelon 03-2 Anion gap [Moles/Vol] 10.2 mmol/L Normal 6.0-15.0 [facility] Comment on above: Performed By: #### A Kang GRAYSON eA CBC, BMP ####[address] Calcium [Mass/Vol] 9.0 mg/dL Normal 8.6-10.3 [facility] Comment on above: Performed By: #### A Kang GRAYSON eA CBC, BMP ####[address] Chloride [Moles/Vol] 100 mmol/L Normal 98-107 [facility] Comment on above: Performed By: #### A Kang GRAYSON eA CBC, BMP ####[place] [id number] [facility] CO2 [Moles/Vol] 31.6 mmol/L High 21.0-31.0 [facility] Comment on above: Performed By: #### A 1C KENAN Mendes CBC, BMP ####[place] [id number] [facility] Creatinine [Mass/Vol] 1.36 mg/dL High 0.70-1.30 [facility] Comment on above: Performed By: #### A Kang GRAYSON eA CBC, BMP ####[place] [id number] [address] Creatinine Clr Calc Pharmacy 84.67 Normal [facility] Comment on above: Result Comment: PERF ORMED BY: [facility] [address] [place] [address] PATHOLOGIST PUMP SERVICER MELANI GUTIÉRREZ M.D. Performed By: #### A 1C JOSY GRAYSON eA, BMP ####[place] [id number] [address] GFR/1.73 sq M.predicted MDRD (S/P/Bld) [Vol rate/Area] 59.577 mL/min/{1.73_m2} Normal [facility] Comment on above: Performed By: #### A JOSY HESTER eA, BMP ####[address] Glucose [Mass/Vol] 156 mg/dL High 70-100 [facility] Comment on above: Result Comment: [place] Glucose Reference Range is dependent on time and content of last meal. Glucose of more than 200 mg/dL in a nonstressed, ambulatory subject supports the diagnosis of Diabetes Mellitus. ADA recommended reference range Performed By: #### A 1C JOSY GRAYSON eA, BMP ####[address] Potassium [Moles/Vol] 3.8 mmol/L Normal 3.5-5.1 [facility] Comment on above: Performed By: #### A Kang GRAYSON eA CBC, BMP ####[address] Sodium [Moles/Vol] 138 mmol/L Normal 136-145 [facility] Comment on above: Performed By: #### A Kang GRAYSON eA CBC, BMP ####[address] Urea nitrogen [Mass/Vol] 24 mg/dL Normal 7-25 [facility] Comment on above: Performed By: #### A Kang GRAYSON eA CBC, BMP ####[address] [place] [address] [facility] Basophils Auto (Bld) [#/Vol] Ordered By: Ryley Higgins on 12-08-2023 Basophils (Bld) [#/Vol] 0.0 10*3/uL 0.0-0.2 [facility] Basophils/100 WBC Auto (Bld) Ordered By: Ryley Higgins on 12-08-2023 Basophils/100 WBC (Bld) 0.7 % . [facility] Bilirubin Test strip Ql (U)O rdered By: José Luis Coleman on 12-08-2023 Bilirubin Ql (U) Negative Negative [facility] Calcium [Mass/volume] in Ser um or PlasmaOrdered By: Ryley Higgins on 12-08-2023 Calcium [Mass/Vol] 9.0 mg/dL 8.6-10.3 [facility] Carbon dioxide, total [Moles /volume] in Serum or PlasmaOrdered By: Ryley Higgins on 12-08-2023 CO2 [Moles/Vol] 31.6 mmol/L 21.0-31.0 [facility] Chloride [Moles/volume] in S suad or PlasmaOrdered By: Ryley Higgins on 12-08-2023 Chloride [Moles/Vol] 100 mmol/L 98-107 [facility] Color Auto (U)Ordered By: Narinder Coleman on 12-08-2023 Color (U) Yellow Yellow [facility] Complete Blood Count Auto Di ffon 12-08-2023 Basophils (Bld) [#/Vol] 0.0 10*3/uL Normal 0.0-0.2 [facility] Comment on above: Result Comment: PERF ORMED BY: [facility] [address] [place] [id number] PATHOLOGIST PUMP SERVICER MELANI GUTIÉRREZ M.D. Performed By: #### A 1C [facility] eA, CBC, BMP ####[facility] [id number] [place] [address] [facility] Basophils/100 WBC (Bld) 0.7 % Normal . [facility] Comment on above: Performed By: #### A 1C WT eA, CBC, BMP ####[address] Eosinophils (Bld) [#/Vol] 0.1 10*3/uL Normal 0.0-0.45 [facility] Comment on above: Performed By: #### A 1C WT eA, CBC, BMP ####[address] Eosinophils/100 WBC (Bld) 2.0 % Normal . [facility] Comment on above: Performed By: #### A 1C WT eA, CBC, BMP ####[address] Erythrocyte distribution width (RBC) [Ratio] 16.6 % High 12.0-14.8 [facility] Comment on above: Performed By: #### A 1C WT Cinth[place], CBC, BMP ####[address] Hematocrit (Bld) [Volume fraction] 36.9 % Low 38.8-50.0 [facility] Comment on above: Performed By: #### A 1C WT Cinthya, CBC, BMP ####[address] Hemoglobin (Bld) [Mass/Vol] 12.7 g/dL Low 13.0-17.0 [facility] Comment on above: Performed By: #### A 1C WT eA, CBC, BMP ####[address] Lymphocytes (Bld) [#/Vol] 0.7 10*3/uL Low 1.00-4.8 [facility] Comment on above: Performed By: #### A 1C WT eA, CBC, BMP ####[address] Lymphocytes/100 WBC (Bld) 14.6 % Normal . [facility] Comment on above: Performed By: #### A 1C WT eA, CBC, BMP ####[address] MCH (RBC) [Entitic mass] 32.2 pg Normal 27.5-35.2 [facility] Comment on above: Performed By: #### A 1C WT eA, CBC, BMP ####[address] MCV (RBC) [Entitic vol] 93.6 fL Normal 83.5-101 [facility] Comment on above: Performed By: #### A 1C WT eA, CBC, BMP ####[address] Mean Corpuscular HGB Conc 34.4 g/dL Normal 32.5-35.6 [facility] Comment on above: Performed By: #### A 1C WT eA, CBC, BMP ####[address] Monocytes (Bld) [#/Vol] 0.4 10*3/uL Normal 0.0-0.8 [facility] Comment on above: Performed By: #### A 1C WT eA, CBC, BMP ####[address] Monocytes/100 WBC (Bld) 9.0 % Normal . [facility] Comment on above: Performed By: #### A 1C WT eA, CBC, BMP ####[address] Neutrophils (Bld) [#/Vol] 3.5 10*3/uL Normal 1.8-7.7 [facility] Comment on above: Performed By: #### A 1C WT eA, CBC, BMP ####[address] Neutrophils/100 WBC (Bld) 73.7 % Normal . [facility] Comment on above: Performed By: #### A 1C WTH eA, CBC, BMP ####[address] NRBC% 0.1 /100{WBC} Normal 0-0.5 [facility] Comment on above: Performed By: #### A 1C [facility] eA, CBC, BMP ####[address] Platelet mean volume (Bld) [Entitic vol] 8.1 fL Normal 6.6-10.1 [facility] Comment on above: Performed By: #### A 1C [facility] eA, CBC, BMP ####[address] Platelets (Bld) [#/Vol] 161 10*3/uL Normal 150-450 [facility] Comment on above: Performed By: #### A [facility] eA, CBC, BMP ####[address] RBC (Bld) [#/Vol] 3.94 10*6/uL Normal 3.90-5.60 [facility] Comment on above: Performed By: #### A 1C [facility] eA, CBC, BMP ####[address] WBC (Bld) [#/Vol] 4.8 10*3/uL Normal 4.1-10.5 [facility] Comment on above: Performed By: #### A 1C [facility] eA, CBC, BMP ####[address] Creatinine [Mass/volume] in Serum or PlasmaOrdered By: Ryley Higgins on 12-08-2023 Creatinine [Mass/Vol] 1.36 mg/dL 0.70-1.30 [facility] Eosinophils Auto (Bld) [#/Vo l]Ordered By: Ryley Higgins on 12-08-2023 Eosinophils (Bld) [#/Vol] 0.1 10*3/uL 0.0-0.45 [facility] Eosinophils/100 WBC Auto (Bl d)Ordered By: Ryley Higgins on 12-08-2023 Eosinophils/100 WBC (Bld) 2.0 % . [facility] Erythrocyte distribution wid th Auto (RBC) [Ratio]Ordered By: Ryley Higgins on 12-08-2023 Erythrocyte distribution width (RBC) [Ratio] 16.6 % 12.0-14.8 [facility] Glucose Poct Glucometerson 0 12-08-2023 Glucose [Mass/Vol] 136 mg/dL Normal [facility] Comment on above: Result Comment: [place] Glucose Reference Range is dependent on time and content of last meal. Glucose of more than 200 mg/dL in a nonstressed, ambulatory subject supports the diagnosis of Diabetes Mellitus. PERFORMED BY: [address] [place] [address] PATHOLOGIST PUMP SERVICER MELANI GUTIÉRREZ M.D. Performed By: #### G LULS #### Point of Care testing , Glucose [Mass/Vol] 161 mg/dL Normal [facility] Comment on above: Result Comment: [facility] Glucose Reference Range is dependent on time and content of last meal. Glucose of more than 200 mg/dL in a nonstressed, ambulatory subject supports the diagnosis of Diabetes Mellitus. PERFORMED BY: [address] [place] [address] PATHOLOGIST PUMP SERVICER MELANI GUTIÉRREZ M.D. Performed By: #### G LULS #### Point of Care testing , Glucose [Mass/Vol] 169 mg/dL Normal [facility] Comment on above: Result Comment: [facility] Glucose Reference Range is dependent on time and content of last meal. Glucose of more than 200 mg/dL in a nonstressed, ambulatory subject supports the diagnosis of Diabetes Mellitus. PERFORMED BY: [address] [place] [address] PATHOLOGIST PUMP SERVICER MELANI GUTIÉRREZ M.D. Performed By: #### G LULS ####Point of Care testing, Glucose [Mass/Vol] 161 mg/dL Normal [facility] Comment on above: Result Comment: [place] Glucose Reference Range is dependent on time and content of last meal. Glucose of more than 200 mg/dL in a nonstressed, ambulatory subject supports the diagnosis of Diabetes Mellitus. PERFORMED BY: [address] [place] [address] PATHOLOGIST PUMP SERVICER MELANI GUTIÉRREZ M.D. Performed By: #### G ARACELIS #### Point of Care testing , Glucose [Mass/volume] in Ser um or PlasmaOrdered By: Ryley Higgins on 12-08-2023 Glucose [Mass/Vol] 156 mg/dL 70-100 [facility] Comment on above: ADA recommended refe rence rangeRandom Glucose Reference Range is dependent on time and content of last meal. Glucose of more than 200 mg/dL in a nonstressed, ambulatory subject supports the diagnosis of Diabetes Mellitus. Glucose mean value [Mass/vol ume] in Blood Estimated from glycated hemoglobinOrdered By: Ryley Higgins on 12-08-2023 Average glucose Estimated from glycated hemoglobin (Bld) [Mass/Vol] 120 mg/dL [facility] Hematocrit Auto (Bld) [Volum e fraction]Ordered By: Ryley Higgins on 12-08-2023 Hematocrit (Bld) [Volume fraction] 36.9 % 38.8-50.0 [facility] Hemoglobin A1c percentageOrd ered By: Ryley Higgins on 12-08-2023 HbA1c (Bld) [Mass fraction] 5.8 % 4.3-5.6 [facility] Comment on above: Increased risk for d iabetes: 5.7 - 6.4diabetes: >6.4glycemic control for adults with diabetes: <7.0 Hemoglobin [Mass/volume] in BloodOrdered By: Ryley Higgins on 12-08-2023 Hemoglobin (Bld) [Mass/Vol] 12.7 g/dL 13.0-17.0 [facility] Ketones Auto test strip (U) [Mass/Vol]Ordered By: José Luis Coleman on 12-08-2023 Ketones (U) [Mass/Vol] Negative Negative [facility] Leukocytes [#/volume] correc kaylee for nucleated erythrocytes in Blood by Automated counOrdered By: Ryley Higgins on 12-08-2023 WBC corrected for nucl RBC Auto (Bld) [#/Vol] 4.8 10*3/uL 4.1-10.5 [facility] Lymphocytes Auto (Bld) [#/Vo l]Ordered By: Ryley Higgins on 12-08-2023 Lymphocytes (Bld) [#/Vol] 0.7 10*3/uL 1.00-4.8 [facility] Lymphocytes/100 WBC Auto (Bl d)Ordered By: Ryley Higgins on 12-08-2023 Lymphocytes/100 WBC (Bld) 14.6 % . [facility] MCH Auto (RBC) [Entitic mass ]Ordered By: Ryley Higgins on 12-08-2023 MCH (RBC) [Entitic mass] 32.2 pg 27.5-35.2 [facility] MCHC Auto (RBC) [Mass/Vol]Or dered By: Ryley Higgins on 12-08-2023 MCHC (RBC) [Mass/Vol] 34.4 g/dL 32.5-35.6 [facility] MCV Auto (RBC) [Entitic vol] Ordered By: Ryley Higgins on 12-08-2023 MCV (RBC) [Entitic vol] 93.6 fL 83.5-101 [facility] Monocytes Auto (Bld) [#/Vol] Ordered By: Ryley Higgins on 12-08-2023 Monocytes (Bld) [#/Vol] 0.4 10*3/uL 0.0-0.8 [facility] Monocytes/100 WBC Auto (Bld) Ordered By: Ryley Higgins on 12-08-2023 Monocytes/100 WBC (Bld) 9.0 % . [facility] Neutrophils Auto (Bld) [#/Vo l]Ordered By: Ryley Higgins on 12-08-2023 Neutrophils (Bld) [#/Vol] 3.5 10*3/uL 1.8-7.7 [facility] Neutrophils/100 WBC Auto (Bl d)Ordered By: Ryley Higgins on 12-08-2023 Neutrophils/100 WBC (Bld) 73.7 % . [facility] Nitrite Test strip Ql (U)Ord ered By: José Luis Coleman on 12-08-2023 Nitrite Ql (U) Negative Negative [facility] No Panel InformationOrdered By: Ryley Higgins on 12-08-2023 Estimated GFR (CKD-EPI) 59.577 mL/Min [facility] Creatinine Clearance (Chem 84.67 [facility] Nucleated erythrocytes [Pres ence] in Blood by Automated countOrdered By: Ryley Higgins on 12-08-2023 Nucleated RBC Auto Ql (Bld) 0.1 /100{WBC} 0-0.5 [facility] Platelet mean volume Auto (B ld) [Entitic vol]Ordered By: Ryley Higgins on 12-08-2023 Platelet mean volume (Bld) [Entitic vol] 8.1 fL 6.6-10.1 [facility] Platelets Auto (Bld) [#/Vol] Ordered By: Ryley Higgins on 12-08-2023 Platelets (Bld) [#/Vol] 161 10*3/uL 150-450 [facility] Potassium [Moles/volume] in Serum or PlasmaOrdered By: Ryley Higgins on 12-08-2023 Potassium [Moles/Vol] 3.8 mmol/L 3.5-5.1 [facility] Protein Auto test strip (U) [Mass/Vol]Ordered By: José Luis Coleman on 12-08-2023 Protein (U) [Mass/Vol] Negative Negative [facility] RBC Auto (Bld) [#/Vol]Ordere d By: Ryley Higgins on 12-08-2023 RBC (Bld) [#/Vol] 3.94 10*6/uL 3.90-5.60 [facility] Serum or plasma anion gap de terminationOrdered By: Ryley Higgins on 12-08-2023 Anion gap [Moles/Vol] 10.2 mmol/L 6.0-15.0 [facility] Sodium [Moles/volume] in Ser um or PlasmaOrdered By: Ryley Higgins on 12-08-2023 Sodium [Moles/Vol] 138 mmol/L 136-145 [facility] Specific gravity Auto test s trip (U) [Rel density]Ordered By: José Luis Coleman on 12-08-2023 Specific gravity (U) [Rel density] 1.015 1.001-1.030 [facility] Urea nitrogen [Mass/volume] in Serum or PlasmaOrdered By: Ryley Higgins on 12-08-2023 Urea nitrogen [Mass/Vol] 24 mg/dL 7-25 [facility] Urinalysison 12-08-2023 Appearance (U) Clear Normal Clear [facility] Comment on above: Order Comment: Name Collection Type:: Clean-Voided Midstream Performed By: #### G LULS #### Point of Care testing , Bilirubin,Urine Negative Normal Negative [facility] Comment on above: Order Comment: Name Collection Type:: Clean-Voided Midstream Performed By: #### G LULS #### Point of Care testing , Color (U) Yellow Normal Yellow [facility] Comment on above: Order Comment: Name Collection Type:: Clean-Voided Midstream Performed By: #### G LULS #### Point of Care testing , Glucose Ql (U) 250 mg/dL High Normal [facility] Comment on above: Order Comment: Name Collection Type:: Clean-Voided Midstream Performed By: #### G LULS #### Point of Care testing , Ketones Ql (U) Negative Normal Negative [facility] Comment on above: Order Comment: Name Collection Type:: Clean-Voided Midstream Performed By: #### G LULS #### Point of Care testing , Leukocyte esterase Test strip Ql (U) Negative Normal Negative [facility] Comment on above: Order Comment: Name Collection Type:: Clean-Voided Midstream Performed By: #### G LULS #### Point of Care testing , Nitrite,Urine Negative Normal Negative [facility] Comment on above: Order Comment: Name Collection Type:: Clean-Voided Midstream Performed By: #### G LULS #### Point of Care testing , Occult Blood,Urine Negative Normal Negative [facility] Comment on above: Order Comment: Name Collection Type:: Clean-Voided Midstream Result Comment: PERF ORMED BY: [facility] [place] [address] PATHOLOGIST PUMP SERVICER MELANI GUTIÉRREZ M.D. Performed By: #### G LULS #### Point of Care testing , pH (U) 5.5 [pH] Normal 5.0-9.0 [facility] Comment on above: Order Comment: Name Collection Type:: Clean-Voided Midstream Performed By: #### G LULS #### Point of Care testing , Protein,Urine Negative Normal Negative [facility] Comment on above: Order Comment: Name Collection Type:: Clean-Voided Midstream Performed By: #### G LULS #### Point of Care testing , Specificy Coleman,Urine 1.015 Normal 1.001-1.030 [facility] Comment on above: Order Comment: Name Collection Type:: Clean-Voided Midstream Performed By: #### G LULS #### Point of Care testing , Urobilinogen,Urine Normal Normal Normal [facility] Comment on above: Order Comment: Name Collection Type:: Clean-Voided Midstream Performed By: #### G LULS #### Point of Care testing , Urine clarity by refractomet ry automatedOrdered By: José Luis Coleman on 12-08-2023 Clarity Refractometry automated (U) Clear Clear [facility] Urine glucose measurement by automated test strip (mass/volume)Ordered By: José Luis Coleman on 12-08-2023 Glucose Auto test strip (U) [Mass/Vol] 250 mg/dL Normal [facility] Urine hemoglobin detection b y automated test stripOrdered By: José Luis Coleman on 12-08-2023 Hemoglobin Auto test strip Ql (U) Negative Negative [facility] Urine leukocyte esterase det ection by automated test stripOrdered By: José Luis Coleman on 12-08-2023 Leukocyte esterase Auto test strip Ql (U) Negative Negative [facility] Urobilinogen Auto test strip (U) [Mass/Vol]Ordered By: José Luis Coleman on 12-08-2023 Urobilinogen (U) [Mass/Vol] Normal mg/dL Normal [facility] WBC Auto (Bld) [#/Vol]Ordere d By: Ryleyjaz Silvaclair on 12-08-2023 WBC (Bld) [#/Vol] 4.8 10*3/uL 4.1-10.5 [facility] pH Auto test strip (U)Ordere d By: José Luis Coleman on 12-08-2023 pH (U) 5.5 [pH] 5.0-9.0 [facility] Activated partial thrombopla stin time (aPTT) in platelet poor plasma by coagulation aOrdered By: José Luis Coleman on 12-07-2023 aPTT Coag (PPP) [Time] 33.6 s 25.1-36.5 [facility] Comment on above: A hematocrit value g reater than 55% may lead to inaccurate results in coagulation testing. Patients having hematocrit values >55% require a special collection tube for coagulation studies. Please contact the laboratory at [phone] for redraw instructions. Alanine aminotransferase [En zymatic activity/volume] in Serum or PlasmaOrdered By: José Luis Coleman on 12-07-2023 ALT [Catalytic activity/Vol] 18 U/L 7-52 [facility] Albumin [Mass/volume] in Ser um or Plasma by Bromocresol green (BCG) dye binding methoOrdered By: José Luis Coleman on 12-07-2023 Albumin BCG dye [Mass/Vol] 3.9 g/dL 3.5-5.7 [facility] Alkaline phosphatase [Enzyma tic activity/volume] in Serum or PlasmaOrdered By: José Luis Coleman on 12-07-2023 ALP [Catalytic activity/Vol] 63 U/L 34-104 [facility] Aspartate aminotransferase [ Enzymatic activity/volume] in Serum or PlasmaOrdered By: José Luis Coleman on 12-07-2023 AST [Catalytic activity/Vol] 17 U/L 13-39 [facility] B-Type Natriuretic Peptideon 12-07-2023 Natriuretic peptide B (Bld) [Mass/Vol] 118.0 pg/mL High 5-100 [facility] Comment on above: Result Comment: PERF ORMED BY: [address] [place] [id number] PATHOLOGIST PUMP SERVICER MELANI GUTIÉRREZ M.D. Performed By: #### B MP, CBC, HEPATIC, PT, BNP, HS TROP, CK, PTT ####[address] Basic Metabolic Panelon 032 Anion gap [Moles/Vol] 13.9 mmol/L Normal 6.0-15.0 [facility] Comment on above: Performed By: #### B MP, CBC, HEPATIC, PT, BNP, HS TROP, CK, PTT ####[address] Calcium [Mass/Vol] 9.4 mg/dL Normal 8.6-10.3 [facility] Comment on above: Performed By: #### B MP, CBC, HEPATIC, PT, BNP, HS TROP, CK, PTT ####[address] Chloride [Moles/Vol] 100 mmol/L Normal 98-107 [facility] Comment on above: Performed By: #### B MP, CBC, HEPATIC, PT, BNP, HS TROP, CK, PTT ####[address] CO2 [Moles/Vol] 27.4 mmol/L Normal 21.0-31.0 [facility] Comment on above: Performed By: #### B MP, CBC, HEPATIC, PT, BNP, HS TROP, CK, PTT ####[address] Creatinine [Mass/Vol] 1.23 mg/dL Normal 0.70-1.30 [facility] Comment on above: Performed By: #### B MP, CBC, HEPATIC, PT, BNP, HS TROP, CK, PTT ####[address] Creatinine Clr Calc Pharmacy 93.69 Normal [facility] Comment on above: Result Comment: PERF ORMED BY: [facility] [address] PATHOLOGIST PUMP SERVICER MELANI GUTIÉRREZ M.D. Performed By: #### B MP, CBC, HEPATIC, PT, BNP, HS TROP, CK, PTT ####[address] GFR/1.73 sq M.predicted MDRD (S/P/Bld) [Vol rate/Area] mL/min/{1.73_m2} Normal [facility] Comment on above: Performed By: #### B MP, CBC, HEPATIC, PT, BNP, HS TROP, CK, PTT ####[address] Glucose [Mass/Vol] 107 mg/dL High 70-100 [facility] Comment on above: Result Comment: [facility] Glucose Reference Range is dependent on time and content of last meal. Glucose of more than 200 mg/dL in a nonstressed, ambulatory subject supports the diagnosis of Diabetes Mellitus. ADA recommended reference range Performed By: #### B MP, CBC, HEPATIC, PT, BNP, HS TROP, CK, PTT ####[address] Potassium [Moles/Vol] 4.3 mmol/L Normal 3.5-5.1 [facility] Comment on above: Performed By: #### B MP, CBC, HEPATIC, PT, BNP, HS TROP, CK, PTT ####[address] Sodium [Moles/Vol] 137 mmol/L Normal 136-145 [facility] Comment on above: Performed By: #### B MP, CBC, HEPATIC, PT, BNP, HS TROP, CK, PTT ####[address] Urea nitrogen [Mass/Vol] 20 mg/dL Normal 7-25 [facility] Comment on above: Performed By: #### B MP, CBC, HEPATIC, PT, BNP, HS TROP, CK, PTT ####[address] Basophils Auto (Bld) [#/Vol] Ordered By: José Luis Coleman on 12-07-2023 Basophils (Bld) [#/Vol] 0.0 10*3/uL 0.0-0.2 [facility] Basophils/100 WBC Auto (Bld) Ordered By: José Luis Coleman on 12-07-2023 Basophils/100 WBC (Bld) 0.6 % . [facility] Bilirubin.direct [Mass/volum e] in Serum or PlasmaOrdered By: José Luis Coleman on 12-07-2023 Bilirubin.direct [Mass/Vol] 0.30 mg/dL 0.03-0.18 [facility] Bilirubin.total [Mass/volume ] in Serum or PlasmaOrdered By: José Luis Coleman on 12-07-2023 Bilirubin [Mass/Vol] 1.1 mg/dL 0.3-1.0 [facility] Calcium [Mass/volume] in Ser um or PlasmaOrdered By: José Luis Coleman on 12-07-2023 Calcium [Mass/Vol] 9.4 mg/dL 8.6-10.3 [facility] Carbon dioxide, total [Moles /volume] in Serum or PlasmaOrdered By: José Luis Coleman on 12-07-2023 CO2 [Moles/Vol] 27.4 mmol/L 21.0-31.0 [facility] Chloride [Moles/volume] in S suad or PlasmaOrdered By: José Luis Coleman on 12-07-2023 Chloride [Moles/Vol] 100 mmol/L 98-107 [facility] Complete Blood Count Auto Di ffon 12-07-2023 Basophils (Bld) [#/Vol] 0.0 10*3/uL Normal 0.0-0.2 [facility] Comment on above: Result Comment: PERF ORMED BY: [facility] [address] [place] [address] PATHOLOGIST PUMP SERVICER MELANI GUTIÉRREZ M.D. Performed By: #### B MP, CBC, HEPATIC, PT, BNP, HS TROP, CK, PTT ####[facility] [id number] [place] [id number] [facility] Basophils/100 WBC (Bld) 0.6 % Normal . [facility] Comment on above: Performed By: #### B MP, CBC, HEPATIC, PT, BNP, HS TROP, CK, PTT ####[address] Eosinophils (Bld) [#/Vol] 0.0 10*3/uL Normal 0.0-0.45 [facility] Comment on above: Performed By: #### B MP, CBC, HEPATIC, PT, BNP, HS TROP, CK, PTT ####[address] Eosinophils/100 WBC (Bld) 0.7 % Normal . [facility] Comment on above: Performed By: #### B MP, CBC, HEPATIC, PT, BNP, HS TROP, CK, PTT ####[address] Erythrocyte distribution width (RBC) [Ratio] 16.8 % High 12.0-14.8 [facility] Comment on above: Performed By: #### B MP, CBC, HEPATIC, PT, BNP, HS TROP, CK, PTT ####[address] Hematocrit (Bld) [Volume fraction] 40.3 % Normal 38.8-50.0 [facility] Comment on above: Performed By: #### B MP, CBC, HEPATIC, PT, BNP, HS TROP, CK, PTT ####[address] Hemoglobin (Bld) [Mass/Vol] 13.9 g/dL Normal 13.0-17.0 [facility] Comment on above: Performed By: #### B MP, CBC, HEPATIC, PT, BNP, HS TROP, CK, PTT ####[address] Lymphocytes (Bld) [#/Vol] 0.6 10*3/uL Low 1.00-4.8 [facility] Comment on above: Performed By: #### B MP, CBC, HEPATIC, PT, BNP, HS TROP, CK, PTT ####[address] Lymphocytes/100 WBC (Bld) 9.2 % Normal . [facility] Comment on above: Performed By: #### B MP, CBC, HEPATIC, PT, BNP, HS TROP, CK, PTT ####[address] MCH (RBC) [Entitic mass] 32.5 pg Normal 27.5-35.2 [facility] Comment on above: Performed By: #### B MP, CBC, HEPATIC, PT, BNP, HS TROP, CK, PTT ####[address] MCV (RBC) [Entitic vol] 94.3 fL Normal 83.5-101 [facility] Comment on above: Performed By: #### B MP, CBC, HEPATIC, PT, BNP, HS TROP, CK, PTT ####[address] Mean Corpuscular HGB Conc 34.4 g/dL Normal 32.5-35.6 [facility] Comment on above: Performed By: #### B MP, CBC, HEPATIC, PT, BNP, HS TROP, CK, PTT ####[address] Monocytes (Bld) [#/Vol] 0.4 10*3/uL Normal 0.0-0.8 [facility] Comment on above: Performed By: #### B MP, CBC, HEPATIC, PT, BNP, HS TROP, CK, PTT ####[address] Monocytes/100 WBC (Bld) 18.44 % Normal 0.00-20.00 [facility] Comment on above: Performed By: #### B MP, CBC, HEPATIC, PT, BNP, HS TROP, CK, PTT ####[address] Monocytes/100 WBC (Bld) 6.6 % Normal . [facility] Comment on above: Performed By: #### B MP, CBC, HEPATIC, PT, BNP, HS TROP, CK, PTT ####[address] Neutrophils (Bld) [#/Vol] 5.2 10*3/uL Normal 1.8-7.7 [facility] Comment on above: Performed By: #### B MP, CBC, HEPATIC, PT, BNP, HS TROP, CK, PTT ####[address] Neutrophils/100 WBC (Bld) 82.9 % Normal . [facility] Comment on above: Performed By: #### B MP, CBC, HEPATIC, PT, BNP, HS TROP, CK, PTT ####[address] NRBC% 0.0 /100{WBC} Normal 0-0.5 [facility] Comment on above: Performed By: #### B MP, CBC, HEPATIC, PT, BNP, HS TROP, CK, PTT ####[address] Platelet mean volume (Bld) [Entitic vol] 8.2 fL Normal 6.6-10.1 [facility] Comment on above: Performed By: #### B MP, CBC, HEPATIC, PT, BNP, HS TROP, CK, PTT ####[address] Platelets (Bld) [#/Vol] 196 10*3/uL Normal 150-450 [facility] Comment on above: Performed By: #### B MP, CBC, HEPATIC, PT, BNP, HS TROP, CK, PTT ####[address] RBC (Bld) [#/Vol] 4.28 10*6/uL Normal 3.90-5.60 [facility] Comment on above: Performed By: #### B MP, CBC, HEPATIC, PT, BNP, HS TROP, CK, PTT ####[place] [address] [place] WBC (Bld) [#/Vol] 6.3 10*3/uL Normal 4.1-10.5 [facility] Comment on above: Performed By: #### B MP, CBC, HEPATIC, PT, BNP, HS TROP, CK, PTT ####[facility] [id number] [place] [address] [facility] Creatine Kinaseon 12-07-2023 CK [Catalytic activity/Vol] 33 U/L Normal 30-223 [facility] Comment on above: Performed By: #### B MP, CBC, HEPATIC, PT, BNP, HS TROP, CK, PTT ####[facility] [place] [id number] [facility] Creatine kinase [Enzymatic a ctivity/volume] in Serum or PlasmaOrdered By: José Luis Coleman on 12-07-2023 CK [Catalytic activity/Vol] 33 U/L 30-223 [facility] Creatinine [Mass/volume] in Serum or PlasmaOrdered By: José Luis Coleman on 12-07-2023 Creatinine [Mass/Vol] 1.23 mg/dL 0.70-1.30 [facility] ECG 12 lead ECGon 12-07-2023 ECG 12 lead ECG [facility] [place] [address] [place] [address] Electrocardiograph Report Signed Patient: Harriett Thakkar MR#: [id number] 285 : 1965 Acct:[id number] Age/Sex: 58 / M ADM Date: 12/07/23 Loc: Room: [address] [place] [address] Type: ADM INOo Attending Dr: Ryley Higgins DO Ordering Provider: José Luis Coleman DO Date of Service: 12/07/23 ECG/ECG 12 lead ECG: Weakness Copies to: Test Reason : Blood Pressure : 091/050 mmHG Vent. Rate : 077 BPM Atrial Rate : 077 BPM P-R Int : 210 ms QRS Dur : 092 ms QT Int : 448 ms P-R-T Axes : 035 039 011 degrees QTc Int : 506 ms Sinus rhythm with 1st degree AV block Low voltage QRS Cannot rule out Anteroseptal infarct (cited on or before 30-NOV-2023) Prolonged QT Abnormal ECG When compared with ECG of 30-NOV-2023 09:40, premature ventricular complexes are no longer present Questionable change in initial forces of Lateral leads Nonspecific T wave abnormality no longer evident in Lateral leads Confirmed by José Luis Coleman DO ([id number]) on 12/07/2023 3:11:51 PM Referred By: Electronically Signed By:José Luis Coleman DO Transcribed By: MUS Signed By José Luis Coleman DO 4 1512 Normal [facility] Eosinophils Auto (Bld) [#/Vo l]Ordered By: José Luis Coleman on 12-07-2023 Eosinophils (Bld) [#/Vol] 0.0 10*3/uL 0.0-0.45 [facility] Eosinophils/100 WBC Auto (Bl d)Ordered By: José Luis Coleman on 12-07-2023 Eosinophils/100 WBC (Bld) 0.7 % . [facility] Erythrocyte distribution wid th Auto (RBC) [Ratio]Ordered By: José Luis Coleman on 12-07-2023 Erythrocyte distribution width (RBC) [Ratio] 16.8 % 12.0-14.8 [facility] Globulin Calc (S) [Mass/Vol] Ordered By: José Luis Coleman on 12-07-2023 Globulin (S) [Mass/Vol] 2.2 g/dL [facility] Glucose Poct Glucometerson 0 12-07-2023 Glucose [Mass/Vol] 133 mg/dL Normal [facility] Comment on above: Result Comment: [place] Glucose Reference Range is dependent on time and content of last meal. Glucose of more than 200 mg/dL in a nonstressed, ambulatory subject supports the diagnosis of Diabetes Mellitus. PERFORMED BY: [facility] [address] [place] [address] PATHOLOGIST PUMP SERVICER MELANI GUTIÉRREZ M.D. Performed By: #### G LUYASEMIN ####Point of Care testing, Glucose [Mass/volume] in Ser um or PlasmaOrdered By: José Luis Coleman on 12-07-2023 Glucose [Mass/Vol] 107 mg/dL 70-100 [facility] Comment on above: ADA recommended refe rence rangeRandom Glucose Reference Range is dependent on time and content of last meal. Glucose of more than 200 mg/dL in a nonstressed, ambulatory subject supports the diagnosis of Diabetes Mellitus. Hematocrit Auto (Bld) [Volum e fraction]Ordered By: José Luis Coleman on 12-07-2023 Hematocrit (Bld) [Volume fraction] 40.3 % 38.8-50.0 [facility] Hemoglobin [Mass/volume] in BloodOrdered By: José Luis Coleman on 12-07-2023 Hemoglobin (Bld) [Mass/Vol] 13.9 g/dL 13.0-17.0 [facility] Hepatic Panelon 12-07-2023 Albumin [Mass/Vol] 3.9 g/dL Normal 3.5-5.7 [facility] Comment on above: Performed By: #### B MP, CBC, HEPATIC, PT, BNP, HS TROP, CK, PTT ####[address] Albumin/Globulin [Mass ratio] 1.8 {ratio} Normal [facility] Comment on above: Performed By: #### B MP, CBC, HEPATIC, PT, BNP, HS TROP, CK, PTT ####[address] ALP [Catalytic activity/Vol] 63 U/L Normal 34-104 [facility] Comment on above: Performed By: #### B MP, CBC, HEPATIC, PT, BNP, HS TROP, CK, PTT ####[address] ALT [Catalytic activity/Vol] 18 U/L Normal 7-52 [facility] Comment on above: Performed By: #### B MP, CBC, HEPATIC, PT, BNP, HS TROP, CK, PTT ####[address] AST [Catalytic activity/Vol] 17 U/L Normal 13-39 [facility] Comment on above: Performed By: #### B MP, CBC, HEPATIC, PT, BNP, HS TROP, CK, PTT ####[address] Bilirubin [Mass/Vol] 1.1 mg/dL High 0.3-1.0 [facility] Comment on above: Performed By: #### B MP, CBC, HEPATIC, PT, BNP, HS TROP, CK, PTT ####[address] Bilirubin,Indirect 0.8 mg/dL Normal [facility] Comment on above: Performed By: #### B MP, CBC, HEPATIC, PT, BNP, HS TROP, CK, PTT ####[address] Bilirubin.indirect [Mass/Vol] 0.30 mg/dL High 0.03-0.18 [facility] Comment on above: Performed By: #### B MP, CBC, HEPATIC, PT, BNP, HS TROP, CK, PTT ####[address] Globulin (S) [Mass/Vol] 2.2 g/dL Normal [facility] Comment on above: Performed By: #### B MP, CBC, HEPATIC, PT, BNP, HS TROP, CK, PTT ####[address] Protein [Mass/Vol] 6.1 g/dL Low 6.4-8.9 [facility] Comment on above: Performed By: #### B MP, CBC, HEPATIC, PT, BNP, HS TROP, CK, PTT ####[address] INR in Platelet poor plasma by Coagulation assayOrdered By: José Luis Coleman on 12-07-2023 INR Coag (PPP) [Relative time] 1.8 {INR} [facility] Comment on above: INR Therapeutic Rang [...] Automated counOrdered By: José Luis Coleman on 12-07-2023 WBC corrected for nucl RBC Auto (Bld) [#/Vol] 6.3 10*3/uL 4.1-10.5 [facility] Lymphocytes Auto (Bld) [#/Vo l]Ordered By: José Luis Coleman on 12-07-2023 Lymphocytes (Bld) [#/Vol] 0.6 10*3/uL 1.00-4.8 [facility] Lymphocytes/100 WBC Auto (Bl d)Ordered By: José Luis Coleman on 12-07-2023 Lymphocytes/100 WBC (Bld) 9.2 % . [facility] MCH Auto (RBC) [Entitic mass ]Ordered By: José Luis Coleman on 12-07-2023 MCH (RBC) [Entitic mass] 32.5 pg 27.5-35.2 [facility] MCHC Auto (RBC) [Mass/Vol]Or dered By: José Luis Coleman on 12-07-2023 MCHC (RBC) [Mass/Vol] 34.4 g/dL 32.5-35.6 [facility] MCV Auto (RBC) [Entitic vol] Ordered By: José Luis Coleman on 12-07-2023 MCV (RBC) [Entitic vol] 94.3 fL 83.5-101 [facility] Monocyte distribution width [Entitic volume] in Blood by AutomatedOrdered By: José Luis Coleman on 12-07-2023 Monocyte distribution width Auto (Bld) [Entitic vol] 18.44 % 0.00-20.00 [facility] Monocytes Auto (Bld) [#/Vol] Ordered By: José Luis Coleman on 12-07-2023 Monocytes (Bld) [#/Vol] 0.4 10*3/uL 0.0-0.8 [facility] Monocytes/100 WBC Auto (Bld) Ordered By: José Luis Coleman on 12-07-2023 Monocytes/100 WBC (Bld) 6.6 % . [facility] Natriuretic peptide B [Mass/ Vol]Ordered By: José Luis Coleman on 12-07-2023 Natriuretic peptide B (Bld) [Mass/Vol] 118.0 pg/mL 5-100 [facility] Neutrophils Auto (Bld) [#/Vo l]Ordered By: José Luis Coleman on 12-07-2023 Neutrophils (Bld) [#/Vol] 5.2 10*3/uL 1.8-7.7 [facility] Neutrophils/100 WBC Auto (Bl d)Ordered By: José Luis Coleman on 12-07-2023 Neutrophils/100 WBC (Bld) 82.9 % . [facility] No Panel InformationOrdered By: José Luis Coleman on 12-07-2023 Estimated GFR (CKD-EPI) > 60.0 mL/Min [facility] Creatinine Clearance (Chem 93.69 [facility] Nucleated erythrocytes [Pres ence] in Blood by Automated countOrdered By: José Luis Coleman on 12-07-2023 Nucleated RBC Auto Ql (Bld) 0.0 /100{WBC} 0-0.5 [facility] Partial Thromboplastin Timeo n 12-07-2023 aPTT Coag (Bld) [Time] 33.6 s Normal 25.1-36.5 [facility] Comment on above: Result Comment: A he matocrit value greater than 55% may lead to inaccurate results in coagulation testing. Patients having hematocrit values >55% require a special collection tube for coagulation studies. Please contact the laboratory at [phone] for redraw instructions. PERFORMED BY: [facility] [address] [place] [address] PATHOLOGIST [employer] SERVICER MELANI GUTIÉRREZ M.D. Performed By: #### B MP, CBC, HEPATIC, PT, BNP, HS TROP, CK, PTT ####[facility] [id number] [place] [address] [facility] Platelet mean volume Auto (B ld) [Entitic vol]Ordered By: José Luis Coleman on 12-07-2023 Platelet mean volume (Bld) [Entitic vol] 8.2 fL 6.6-10.1 [facility] Platelets Auto (Bld) [#/Vol] Ordered By: José Luis Coleman on 12-07-2023 Platelets (Bld) [#/Vol] 196 10*3/uL 150-450 [facility] Potassium [Moles/volume] in Serum or PlasmaOrdered By: José Luis Coleman on 12-07-2023 Potassium [Moles/Vol] 4.3 mmol/L 3.5-5.1 [facility] Protein [Mass/volume] in Ser um or PlasmaOrdered By: José Luis Coleman on 12-07-2023 Protein [Mass/Vol] 6.1 g/dL 6.4-8.9 [facility] Prothrombin Time INRon 12-06 INR Coag (PPP) [Relative time] 1.8 {INR} Normal [facility] Comment on above: Result Comment: INR Therapeutic [...] valves: 3 - 4.5 Performed By: #### B MP, CBC, HEPATIC, PT, BNP, HS TROP, CK, PTT ####[facility] [id number] [place] [id number] [facility] PT Coag (PPP) [Time] 19.8 s High 9.0-12.9 [facility] Comment on above: Result Comment: A he matocrit value greater than 55% may lead to inaccurate results in coagulation testing. Patients having hematocrit values >55% require a special collection tube for coagulation studies. Please contact the laboratory at [phone] for redraw instructions. Performed By: #### B MP, CBC, HEPATIC, PT, BNP, HS TROP, CK, PTT ####[facility] [id number] [place] [address] [facility] Prothrombin time (PT)Ordered By: José Luis Coleman on 12-07-2023 PT Coag (PPP) [Time] 19.8 s 9.0-12.9 [facility] Comment on above: A hematocrit value g reater than 55% may lead to inaccurate results in coagulation testing. Patients having hematocrit values >55% require a special collection tube for coagulation studies. Please contact the laboratory at [phone] for redraw instructions. RBC Auto (Bld) [#/Vol]Ordere d By: José Luis Coleman on 12-07-2023 RBC (Bld) [#/Vol] 4.28 10*6/uL 3.90-5.60 [facility] Serum or plasma albumin/glob ulin mass ratioOrdered By: José Luis Coleman on 12-07-2023 Albumin/Globulin [Mass ratio] 1.8 {ratio} [facility] Serum or plasma anion gap de terminationOrdered By: José Luis Coleman on 12-07-2023 Anion gap [Moles/Vol] 13.9 mmol/L 6.0-15.0 [facility] Serum or plasma non-glucuron idated bilirubin measurement (mass/volume)Ordered By: José Luis Coleman on 12-07-2023 Bilirubin.indirect [Mass/Vol] 0.8 mg/dL [facility] Sodium [Moles/volume] in Ser um or PlasmaOrdered By: José Luis Coleman on 12-07-2023 Sodium [Moles/Vol] 137 mmol/L 136-145 [facility] Troponin I High Sensitivityo n 12-07-2023 Troponin I High Sensitivity 8.0 pg/mL Normal 0.0-20.0 [facility] Comment on above: Result Comment: PERF ORMED BY: [facility] [address] [place] [address] PATHOLOGIST [employer] SERVICER MELANI GUTIÉRREZ M.D. Performed By: #### B MP, CBC, HEPATIC, PT, BNP, HS TROP, CK, PTT ####[facility] Troponin I.cardiac [Mass/vol ume] in Serum or Plasma by Detection limit <= 0.01 ng/Ordered By: José Luis Coleman on 12-07-2023 Troponin I.cardiac DL <= 0.01 ng/mL [Mass/Vol] 8.0 pg/mL 0.0-20.0 [facility] Urea nitrogen [Mass/volume] in Serum or PlasmaOrdered By: José Luis Coleman on 12-07-2023 Urea nitrogen [Mass/Vol] 20 mg/dL 7-25 [facility] WBC Auto (Bld) [#/Vol]Ordere d By: José Luis Coleman on 12-07-2023 WBC (Bld) [#/Vol] 6.3 10*3/uL 4.1-10.5 [facility] XR chest 1V portableon 12-06 XR chest 1V portable [facility] [place] [address] XRay Report Signed Patient: Harriett Thakkar MR#: [id number] 285 : 1965 Acct:[id number] Age/Sex: 58 / M ADM Date: 12/07/23 Loc: ER Room: Type: PRE ER Attending Dr: Copies to: José Luis Coleman DO Ordering Provider: José Luis Coleman DO Date of Service: 12/07/23 XR/XR chest 1V portable: Weakness PORTABLE AP SEMIERECT CHEST 1208 hours CLINICAL HISTORY: Generalized weakness and hypotension COMPARISON: 10/28/2023 Left-sided pacemaker is again visualized. The heart is within normal limits. There is no vascular congestion. The lungs, as visualized, are clear. There is no effusion or pneumothorax. The osseous structures are intact. Mild endplate spurring is seen at the spine. There is a cervical fusion plate. XR/XR chest 1V portable IMPRESSION: NO ACUTE FINDINGS Impression dictated by: Erica Hay M.D.12/07/2023 12:22 PM Dictation Location: [place] [address] Transcribed By: [facility] 12/07/23 1222 Dictated By: Erica Hay MD 12/07/23 1220 Signed By: 12/07/23 1222 Normal [facility] Carbon dioxide, total [Moles /volume] in Serum or PlasmaOrdered By: Dallas Em on 11-30-2023 CO2 [Moles/Vol] 29.9 mmol/L 21.0-31.0 [facility] Chloride [Moles/volume] in S suad or PlasmaOrdered By: Dallas Em on 11-30-2023 Chloride [Moles/Vol] 103 mmol/L 98-107 [facility] ECG 12 lead ECGon 11-30-2023 ECG 12 lead ECG [facility] [address] [address] Electrocardiograph Report Signed Patient: Harriett Thakkar MR#: [id number] : 1965 Acct:[id number] Age/Sex: 58 / M ADM Date: 11/30/23 Loc: PO Room: Type: [facility] Attending Dr: Dallas Em MD Ordering Provider: Dallas Em MD Date of Service: 11/30/23 ECG/ECG 12 lead ECG: Pre-cardioversion rhythm assessment Copies to: Test Reason : Blood Pressure : / mmHG Vent. Rate : 086 BPM Atrial Rate : 091 BPM P-R Int : 000 ms QRS Dur : 162 ms QT Int : 508 ms P-R-T Axes : 000 -85 086 degrees QTc Int : 607 ms atrial flutter Left axis deviation ventricular-paced complexes Abnormal ECG Confirmed by DALLAS EM MD ([id number]) on 11/30/2023 12:05:33 PM Referred By: Dallas Em Electronically Signed By:DALLAS EM MD Transcribed By: MUS Signed By Dallas Em MD 0 11/30/23 1205 Normal [facility] ECG post procedureon 024 ECG post procedure [facility] [address] [address] Electrocardiograph Report Signed Patient: Harriett Thakkar MR#: [id number] 285 : 1965 Acct:[id number] Age/Sex: 58 / M ADM Date: 11/30/23 Loc: PO Room: Type: [facility] Attending Dr: Dallas Em MD Ordering Provider: Dallas Em MD Date of Service: 11/30/23/ ECG/ECG post procedure: CV Copies to: Test Reason : Blood Pressure : 109/070 mmHG Vent. Rate : 079 BPM Atrial Rate : 079 BPM P-R Int : 266 ms QRS Dur : 094 ms QT Int : 448 ms P-R-T Axes : 087 100 090 degrees QTc Int : 513 ms Sinus rhythm with 1st degree AV block with occasional premature ventricular complexes Possible Right ventricular hypertrophy Anterolateral infarct (cited on or before 02-APR-2023) Prolonged QT Abnormal ECG When compared with ECG of 30-NOV-2023 08:11, (Unconfirmed) Sinus rhythm has replaced Atrial fibrillation Nonspecific T wave abnormality no longer evident in Inferior leads Confirmed by DALLAS EM MD ([id number]) on 12/01/2023 12:34:55 PM Referred By: Dallas Em Electronically Signed By:DALLAS EM MD Transcribed By: MUS Signed By Dallas Em MD 0 12/01/23 1235 Normal [facility] Electrolyteson 11-30-2023 Anion gap [Moles/Vol] 11.4 mmol/L Normal 6.0-15.0 [facility] Comment on above: Result Comment: PERF ORMED BY: [address] [place] [address] PATHOLOGIST [employer] SERVICER MELANI GUTIÉRREZ M.D. Performed By: #### G LULS #### Point of Care testing , Chloride [Moles/Vol] 103 mmol/L Normal 98-107 [facility] Comment on above: Performed By: #### G LULS #### Point of Care testing , CO2 [Moles/Vol] 29.9 mmol/L Normal 21.0-31.0 [facility] Comment on above: Performed By: #### G LULS #### Point of Care testing , Potassium [Moles/Vol] 4.3 mmol/L Normal 3.5-5.1 [facility] Comment on above: Performed By: #### G LULS #### Point of Care testing , Sodium [Moles/Vol] 140 mmol/L Normal 136-145 [facility] Comment on above: Performed By: #### G LULS #### Point of Care testing , Potassium [Moles/volume] in Serum or PlasmaOrdered By: Dallas Em on 11-30-2023 Potassium [Moles/Vol] 4.3 mmol/L 3.5-5.1 [facility] Serum or plasma anion gap de terminationOrdered By: Dallas Em on 11-30-2023 Anion gap [Moles/Vol] 11.4 mmol/L 6.0-15.0 [facility] Sodium [Moles/volume] in Ser um or PlasmaOrdered By: Dallas Em on 11-30-2023 Sodium [Moles/Vol] 140 mmol/L 136-145 [facility] Bacteria identified Aer cx N om (Unsp spec)Ordered By: S Pineda Bustos on 11-22-2023 Superficial Wound Culture Staphylococcus sp coag neg [facility] Superficial Wound Cultureon 11-22-2023 Superficial Wound Culture [...] RESISTANT TO ALL B-LACTAM DRUGS. PERFORMED BY: [facility] [address] [place] [address] PATHOLOGIST PUMP SERVICER MELANI GUTIÉRREZ M.D. Normal [facility] Comment on above: Performed By: #### G LULS #### Point of Care testing , Cardiac device check - Remot e alerton 11-01-2023 Radiology Study observation (narrative) [facility] Work Phone: [facility] Work Phone: Glucose Glucometer (BldC) [M ass/Vol]Ordered By: Daniela Gore on 10-30-2023 Glucose [Mass/Vol] 170 mg/dL [facility] Comment on above: Random Glucose Refer ence Range is dependent on time and content of last meal. Glucose of more than 200 mg/dL in a nonstressed, ambulatory subject supports the diagnosis of Diabetes Mellitus. Glucose Poct Glucometerson 0 10-30-2023 Glucose [Mass/Vol] 170 mg/dL Normal [facility] Comment on above: Result Comment: [place] om Glucose Reference Range is dependent on time and content of last meal. Glucose of more than 200 mg/dL in a nonstressed, ambulatory subject supports the diagnosis of Diabetes Mellitus. PERFORMED BY: [address] [place] [id number] PATHOLOGIST PUMP SERVICER MELANI GUTIÉRREZ M.D. Performed By: #### G LULS #### Point of Care testing , Glucose [Mass/Vol] 160 mg/dL Normal [facility] Comment on above: Result Comment: [place] om Glucose Reference Range is dependent on time and content of last meal. Glucose of more than 200 mg/dL in a nonstressed, ambulatory subject supports the diagnosis of Diabetes Mellitus. PERFORMED BY: [address] [place] [address] PATHOLOGIST PU[employer] SERVICER MELANI GUTIÉRREZ M.D. Performed By: #### G LULS ####Point of Care testing, Glucose [Mass/Vol] 82 mg/dL Normal [facility] Comment on above: Result Comment: [place] Glucose Reference Range is dependent on time and content of last meal. Glucose of more than 200 mg/dL in a nonstressed, ambulatory subject supports the diagnosis of Diabetes Mellitus. PERFORMED BY: [facility] [address] [facility]. [place] [id number] PATHOLOGIST PUMP SERVICER MELANI GUTIÉRREZ M.D. Performed By: #### G LULS #### Point of Care testing , Glucose [Mass/Vol] 65 mg/dL Normal [facility] Comment on above: Result Comment: [place] Glucose Reference Range is dependent on time and content of last meal. Glucose of more than 200 mg/dL in a nonstressed, ambulatory subject supports the diagnosis of Diabetes Mellitus. PERFORMED BY: [place] [id number] PATHOLOGIST PUMP SERVICER MELANI GUTIÉRREZ M.D. Performed By: #### G LULS #### Point of Care testing , Magnesiumon 10-30-2023 Magnesium [Mass/Vol] 1.7 mg/dL Low 1.9-2.7 [facility] Comment on above: Result Comment: PERF ORMED BY: [address] [place] [address] PATHOLOGIST PU[employer] SERVICER MELANI GUTIÉRREZ M.D. Performed By: #### G LULS #### Point of Care testing , Magnesium [Mass/volume] in S suad or PlasmaOrdered By: Daniela Gore on 10-30-2023 Magnesium [Mass/Vol] 1.7 mg/dL 1.9-2.7 [facility] Glucose Poct Glucometerson 0 10-29-2023 Glucose [Mass/Vol] 97 mg/dL Normal [facility] Comment on above: Result Comment: [place] Glucose Reference Range is dependent on time and content of last meal. Glucose of more than 200 mg/dL in a nonstressed, ambulatory subject supports the diagnosis of Diabetes Mellitus. PERFORMED BY: [address] [place] [id number] PATHOLOGIST PUMP SERVICER MELANI GUTIÉRREZ M.D. Performed By: #### G LULS #### Point of Care testing , Glucose [Mass/Vol] 156 mg/dL Normal [facility] Comment on above: Result Comment: [place] Glucose Reference Range is dependent on time and content of last meal. Glucose of more than 200 mg/dL in a nonstressed, ambulatory subject supports the diagnosis of Diabetes Mellitus. PERFORMED BY: [address] [address] PATHOLOGIST PUMP SERVICER MELANI GUTIÉRREZ M.D. Performed By: #### G LULS ####Point of Care testing, Glucose [Mass/Vol] 206 mg/dL Normal [facility] Comment on above: Result Comment: [facility] Glucose Reference Range is dependent on time and content of last meal. Glucose of more than 200 mg/dL in a nonstressed, ambulatory subject supports the diagnosis of Diabetes Mellitus. PERFORMED BY: [address] [place] [place] [address] PATHOLOGIST PUMP SERVICER MELANI GUTIÉRREZ M.D. Performed By: #### G LULS ####Point of Care testing, Glucose [Mass/Vol] 181 mg/dL Normal [facility] Comment on above: Result Comment: [facility] Glucose Reference Range is dependent on time and content of last meal. Glucose of more than 200 mg/dL in a nonstressed, ambulatory subject supports the diagnosis of Diabetes Mellitus. PERFORMED BY: [address] [place] [address] PATHOLOGIST PUMP SERVICER MELANI GUTIÉRREZ M.D. Performed By: #### G LULS ####Point of Care testing, Activated partial thrombopla stin time (aPTT) in platelet poor plasma by coagulation aOrdered By: Trev Salmon on 10-28-2023 aPTT Coag (PPP) [Time] 36.1 s 25.1-36.5 [facility] Comment on above: A hematocrit value g reater than 55% may lead to inaccurate results in coagulation testing. Patients having hematocrit values >55% require a special collection tube for coagulation studies. Please contact the laboratory at [phone] for redraw instructions. Alanine aminotransferase [En zymatic activity/volume] in Serum or PlasmaOrdered By: Trev Salmon on 10-28-2023 ALT [Catalytic activity/Vol] 21 U/L 7-52 [facility] Albumin [Mass/volume] in Ser um or Plasma by Bromocresol green (BCG) dye binding methoOrdered By: Trev Salmon on 10-28-2023 Albumin BCG dye [Mass/Vol] 3.8 g/dL 3.5-5.7 [facility] Alkaline phosphatase [Enzyma tic activity/volume] in Serum or PlasmaOrdered By: Trev Salmon on 10-28-2023 ALP [Catalytic activity/Vol] 70 U/L 34-104 [facility] Aspartate aminotransferase [ Enzymatic activity/volume] in Serum or PlasmaOrdered By: Trev Salmon on 10-28-2023 AST [Catalytic activity/Vol] 19 U/L 13-39 [facility] B-Type Natriuretic Peptideon 10-28-2023 Natriuretic peptide B (Bld) [Mass/Vol] 481.0 pg/mL High 5-100 [facility] Comment on above: Result Comment: PERF ORMED BY: [facility] [address] [place] [id number] PATHOLOGIST PUMP SERVICER MELANI GUTIÉRREZ M.D. Performed By: #### B GTA, HS TROP, CMP, MG, PTT, CBC, PT ####[facility] [id number] [place] [address] [facility] Basophils Auto (Bld) [#/Vol] Ordered By: Trev Salmon on 10-28-2023 Basophils (Bld) [#/Vol] 0.0 10*3/uL 0.0-0.2 [facility] Basophils/100 WBC Auto (Bld) Ordered By: Trev Salmon on 10-28-2023 Basophils/100 WBC (Bld) 0.5 % . [facility] Bilirubin.total [Mass/volume ] in Serum or PlasmaOrdered By: Trev Salmon on 10-28-2023 Bilirubin [Mass/Vol] 0.9 mg/dL 0.3-1.0 [facility] Calcium [Mass/volume] in Ser um or PlasmaOrdered By: Trev Salmon on 10-28-2023 Calcium [Mass/Vol] 8.5 mg/dL 8.6-10.3 [facility] Carbon dioxide, total [Moles /volume] in Serum or PlasmaOrdered By: Trev Salmon on 10-28-2023 CO2 [Moles/Vol] 27.8 mmol/L 21.0-31.0 [facility] Chloride [Moles/volume] in S suad or PlasmaOrdered By: Trev Salmon on 10-28-2023 Chloride [Moles/Vol] 102 mmol/L 98-107 [facility] Complete Blood Count Auto Di ffon 10-28-2023 Basophils (Bld) [#/Vol] 0.0 10*3/uL Normal 0.0-0.2 [facility] Comment on above: Result Comment: PERF ORMED BY: [facility] [address] [place] [address] PATHOLOGIST PUMP SERVICER MELANI GUTIÉRREZ M.D. Performed By: #### B GTA, HS TROP, CMP, MG, PTT, CBC, PT ####[address] Basophils/100 WBC (Bld) 0.5 % Normal . [facility] Comment on above: Performed By: #### B GTA, HS TROP, CMP, MG, PTT, CBC, PT ####[address] Eosinophils (Bld) [#/Vol] 0.1 10*3/uL Normal 0.0-0.45 [facility] Comment on above: Performed By: #### B GTA, HS TROP, CMP, MG, PTT, CBC, PT ####[address] Eosinophils/100 WBC (Bld) 1.7 % Normal . [facility] Comment on above: Performed By: #### B GTA, HS TROP, CMP, MG, PTT, CBC, PT ####[address] Erythrocyte distribution width (RBC) [Ratio] 15.3 % High 12.0-14.8 [facility] Comment on above: Performed By: #### B GTA, HS TROP, CMP, MG, PTT, CBC, PT ####[address] Hematocrit (Bld) [Volume fraction] 39.9 % Normal 38.8-50.0 [facility] Comment on above: Performed By: #### B GTA, HS TROP, CMP, MG, PTT, CBC, PT ####[address] Hemoglobin (Bld) [Mass/Vol] 14.0 g/dL Normal 13.0-17.0 [facility] Comment on above: Performed By: #### B GTA, HS TROP, CMP, MG, PTT, CBC, PT ####[address] Lymphocytes (Bld) [#/Vol] 0.9 10*3/uL Low 1.00-4.8 [facility] Comment on above: Performed By: #### B GTA, HS TROP, CMP, MG, PTT, CBC, PT ####[address] Lymphocytes/100 WBC (Bld) 14.1 % Normal . [facility] Comment on above: Performed By: #### B GTA, HS TROP, CMP, MG, PTT, CBC, PT ####[address] MCH (RBC) [Entitic mass] 32.2 pg Normal 27.5-35.2 [facility] Comment on above: Performed By: #### B GTA, HS TROP, CMP, MG, PTT, CBC, PT ####[address] MCV (RBC) [Entitic vol] 91.6 fL Normal 83.5-101 [facility] Comment on above: Performed By: #### B GTA, HS TROP, CMP, MG, PTT, CBC, PT ####[address] Mean Corpuscular HGB Conc 35.1 g/dL Normal 32.5-35.6 [facility] Comment on above: Performed By: #### B GTA, HS TROP, CMP, MG, PTT, CBC, PT ####[address] Monocytes (Bld) [#/Vol] 0.5 10*3/uL Normal 0.0-0.8 [facility] Comment on above: Performed By: #### B GTA, HS TROP, CMP, MG, PTT, CBC, PT ####[address] Monocytes/100 WBC (Bld) 18.98 % Normal 0.00-20.00 [facility] Comment on above: Performed By: #### B GTA, HS TROP, CMP, MG, PTT, CBC, PT ####[address] Monocytes/100 WBC (Bld) 7.2 % Normal . [facility] Comment on above: Performed By: #### B GTA, HS TROP, CMP, MG, PTT, CBC, PT ####[address] Neutrophils (Bld) [#/Vol] 5.0 10*3/uL Normal 1.8-7.7 [facility] Comment on above: Performed By: #### B GTA, HS TROP, CMP, MG, PTT, CBC, PT ####[address] Neutrophils/100 WBC (Bld) 76.5 % Normal . [facility] Comment on above: Performed By: #### B GTA, HS TROP, CMP, MG, PTT, CBC, PT ####[address] NRBC% 0.0 /100{WBC} Normal 0-0.5 [facility] Comment on above: Performed By: #### B GTA, HS TROP, CMP, MG, PTT, CBC, PT ####[address] Platelet mean volume (Bld) [Entitic vol] 8.7 fL Normal 6.6-10.1 [facility] Comment on above: Performed By: #### B GTA, HS TROP, CMP, MG, PTT, CBC, PT ####[address] [address] [place] Platelets (Bld) [#/Vol] 154 10*3/uL Normal 150-450 [facility] Comment on above: Performed By: #### B GTA, HS TROP, CMP, MG, PTT, CBC, PT ####[place] [id number] [address] RBC (Bld) [#/Vol] 4.36 10*6/uL Normal 3.90-5.60 [facility] Comment on above: Performed By: #### B GTA, HS TROP, CMP, MG, PTT, CBC, PT ####[place] [id number] [address] WBC (Bld) [#/Vol] 6.5 10*3/uL Normal 4.1-10.5 [facility] Comment on above: Performed By: #### B GTA, HS TROP, CMP, MG, PTT, CBC, PT ####[place] [id number] [address] Comprehensive Metabolic Pane lindy 10-28-2023 Albumin [Mass/Vol] 3.8 g/dL Normal 3.5-5.7 [facility] Comment on above: Performed By: #### B GTA, HS TROP, CMP, MG, PTT, CBC, PT ####[address] Albumin/Globulin [Mass ratio] 1.7 {ratio} Normal [facility] Comment on above: Performed By: #### B GTA, HS TROP, CMP, MG, PTT, CBC, PT ####[address] ALP [Catalytic activity/Vol] 70 U/L Normal 34-104 [facility] Comment on above: Performed By: #### B GTA, HS TROP, CMP, MG, PTT, CBC, PT ####[place] [id number] ALT [Catalytic activity/Vol] 21 U/L Normal 7-52 [facility] Comment on above: Performed By: #### B GTA, HS TROP, CMP, MG, PTT, CBC, PT ####[address] Anion gap [Moles/Vol] 13.0 mmol/L Normal 6.0-15.0 [facility] Comment on above: Performed By: #### B GTA, HS TROP, CMP, MG, PTT, CBC, PT ####[address] AST [Catalytic activity/Vol] 19 U/L Normal 13-39 [facility] Comment on above: Performed By: #### B GTA, HS TROP, CMP, MG, PTT, CBC, PT ####[address] Bilirubin [Mass/Vol] 0.9 mg/dL Normal 0.3-1.0 [facility] Comment on above: Performed By: #### B GTA, HS TROP, CMP, MG, PTT, CBC, PT ####[address] Calcium [Mass/Vol] 8.5 mg/dL Low 8.6-10.3 [facility] Comment on above: Performed By: #### B GTA, HS TROP, CMP, MG, PTT, CBC, PT ####[address] Chloride [Moles/Vol] 102 mmol/L Normal 98-107 [facility] Comment on above: Performed By: #### B GTA, HS TROP, CMP, MG, PTT, CBC, PT ####[address] CO2 [Moles/Vol] 27.8 mmol/L Normal 21.0-31.0 [facility] Comment on above: Performed By: #### B GTA, HS TROP, CMP, MG, PTT, CBC, PT ####[address] Creatinine [Mass/Vol] 1.25 mg/dL Normal 0.70-1.30 [facility] Comment on above: Performed By: #### B GTA, HS TROP, CMP, MG, PTT, CBC, PT ####[address] Creatinine Clr Calc Pharmacy 92.05 Normal [facility] Comment on above: Performed By: #### B GTA, HS TROP, CMP, MG, PTT, CBC, PT ####[address] GFR/1.73 sq M.predicted MDRD (S/P/Bld) [Vol rate/Area] mL/min/{1.73_m2} Normal [facility] Comment on above: Performed By: #### B GTA, HS TROP, CMP, MG, PTT, CBC, PT ####[address] Globulin (S) [Mass/Vol] 2.3 g/dL Normal [facility] Comment on above: Performed By: #### B GTA, HS TROP, CMP, MG, PTT, CBC, PT ####[address] Glucose [Mass/Vol] 173 mg/dL High 70-100 [facility] Comment on above: Result Comment: [place] Glucose Reference Range is dependent on time and content of last meal. Glucose of more than 200 mg/dL in a nonstressed, ambulatory subject supports the diagnosis of Diabetes Mellitus. ADA recommended reference range Performed By: #### B GTA, HS TROP, CMP, MG, PTT, CBC, PT ####[address] Potassium [Moles/Vol] 3.8 mmol/L Normal 3.5-5.1 [facility] Comment on above: Performed By: #### B GTA, HS TROP, CMP, MG, PTT, CBC, PT ####[address] Protein [Mass/Vol] 6.1 g/dL Low 6.4-8.9 [facility] Comment on above: Performed By: #### B GTA, HS TROP, CMP, MG, PTT, CBC, PT ####[facility] [place] [id number] [facility] Sodium [Moles/Vol] 139 mmol/L Normal 136-145 [facility] Comment on above: Performed By: #### B GTA, HS TROP, CMP, MG, PTT, CBC, PT ####[facility] [place] [address] [facility] Urea nitrogen [Mass/Vol] 19 mg/dL Normal 7-25 [facility] Comment on above: Performed By: #### B GTA, HS TROP, CMP, MG, PTT, CBC, PT ####[facility] [place] [address] [facility] Creatinine [Mass/volume] in Serum or PlasmaOrdered By: Trev Salmon on 10-28-2023 Creatinine [Mass/Vol] 1.25 mg/dL 0.70-1.30 [facility] ECG 12 lead ECGon 10-28-2023 ECG 12 lead ECG [facility] Main [place] [address] [place] [address] Electrocardiograph Report Signed Patient: Harriett Thakkar MR#: [id number] 285 : 1965 Acct:[id number] Age/Sex: 58 / M ADM Date: 10/28/23 Loc: ER Room: Type: [facility] ER Attending Dr: Ordering Provider: Dylon [...] Inferior leads Confirmed by DYLON WEISS DO ([id number]) on 10/28/2023 4:11:00 PM Referred By: Electronically Signed By:DYLON WEISS DO Transcribed By: MUS Signed By Dylon Weiss DO 10/28 1611 Normal [facility] Eosinophils Auto (Bld) [#/Vo l]Ordered By: Trev Salmon on 10-28-2023 Eosinophils (Bld) [#/Vol] 0.1 10*3/uL 0.0-0.45 [facility] Eosinophils/100 WBC Auto (Bl d)Ordered By: Trev Salmon on 10-28-2023 Eosinophils/100 WBC (Bld) 1.7 % . [facility] Erythrocyte distribution wid th Auto (RBC) [Ratio]Ordered By: Trev Salmon on 10-28-2023 Erythrocyte distribution width (RBC) [Ratio] 15.3 % 12.0-14.8 [facility] Globulin Calc (S) [Mass/Vol] Ordered By: Trev Salmon on 10-28-2023 Globulin (S) [Mass/Vol] 2.3 g/dL [facility] Glucose Poct Glucometerson 0 10-28-2023 Glucose [Mass/Vol] 228 mg/dL Normal [facility] Comment on above: Result Comment: [place] om Glucose Reference Range is dependent on time and content of last meal. Glucose of more than 200 mg/dL in a nonstressed, ambulatory subject supports the diagnosis of Diabetes Mellitus. PERFORMED BY: [address] [address] PATHOLOGIST PUMP SERVICER MELANI GUTIÉRREZ M.D. Performed By: #### G LULS ####Point of Care testing, Glucose [Mass/volume] in Ser um or PlasmaOrdered By: Trev Salmon on 10-28-2023 Glucose [Mass/Vol] 173 mg/dL 70-100 [facility] Comment on above: ADA recommended refe rence rangeRandom Glucose Reference Range is dependent on time and content of last meal. Glucose of more than 200 mg/dL in a nonstressed, ambulatory subject supports the diagnosis of Diabetes Mellitus. Hematocrit Auto (Bld) [Volum e fraction]Ordered By: Trev Salmon on 10-28-2023 Hematocrit (Bld) [Volume fraction] 39.9 % 38.8-50.0 [facility] Hemoglobin [Mass/volume] in BloodOrdered By: Trev Salmon on 10-28-2023 Hemoglobin (Bld) [Mass/Vol] 14.0 g/dL 13.0-17.0 [facility] INR in Platelet poor plasma by Coagulation assayOrdered By: Trev Salmon on 10-28-2023 INR Coag (PPP) [Relative time] 1.5 {INR} [facility] Comment on above: INR Therapeutic Rang [...] RBC Auto (Bld) [#/Vol] 6.5 10*3/uL 4.1-10.5 [facility] Lymphocytes Auto (Bld) [#/Vo l]Ordered By: Trev Salmon on 10-28-2023 Lymphocytes (Bld) [#/Vol] 0.9 10*3/uL 1.00-4.8 [facility] Lymphocytes/100 WBC Auto (Bl d)Ordered By: Trev Salmon on 10-28-2023 Lymphocytes/100 WBC (Bld) 14.1 % . [facility] MCH Auto (RBC) [Entitic mass ]Ordered By: Trev Salmon on 10-28-2023 MCH (RBC) [Entitic mass] 32.2 pg 27.5-35.2 [facility] MCHC Auto (RBC) [Mass/Vol]Or dered By: Trev Salmon on 10-28-2023 MCHC (RBC) [Mass/Vol] 35.1 g/dL 32.5-35.6 [facility] MCV Auto (RBC) [Entitic vol] Ordered By: Trev Salmon on 10-28-2023 MCV (RBC) [Entitic vol] 91.6 fL 83.5-101 [facility] Magnesiumon 10-28-2023 Magnesium [Mass/Vol] 1.1 mg/dL Low 1.9-2.7 [facility] Comment on above: Result Comment: PERF ORMED BY: [facility] [address] [place] [address] PATHOLOGIST [employer]MP SERVICER MELANI GUTIÉRREZ M.D. Performed By: #### B GTA, HS TROP, CMP, MG, PTT, CBC, PT ####[facility] [id number] [place] [address] [facility] Magnesium [Mass/volume] in S suad or PlasmaOrdered By: Trev Salmon on 10-28-2023 Magnesium [Mass/Vol] 1.1 mg/dL 1.9-2.7 [facility] Monocyte distribution width [Entitic volume] in Blood by AutomatedOrdered By: Trev Salmon on 10-28-2023 Monocyte distribution width Auto (Bld) [Entitic vol] 18.98 % 0.00-20.00 [facility] Monocytes Auto (Bld) [#/Vol] Ordered By: Trev Salmon on 10-28-2023 Monocytes (Bld) [#/Vol] 0.5 10*3/uL 0.0-0.8 [facility] Monocytes/100 WBC Auto (Bld) Ordered By: Trev Salmon on 10-28-2023 Monocytes/100 WBC (Bld) 7.2 % . [facility] Natriuretic peptide B [Mass/ Vol]Ordered By: Trev Salmon on 10-28-2023 Natriuretic peptide B (Bld) [Mass/Vol] 481.0 pg/mL 5-100 [facility] Neutrophils Auto (Bld) [#/Vo l]Ordered By: Trev Salmon on 10-28-2023 Neutrophils (Bld) [#/Vol] 5.0 10*3/uL 1.8-7.7 [facility] Neutrophils/100 WBC Auto (Bl d)Ordered By: Trev Salmon on 10-28-2023 Neutrophils/100 WBC (Bld) 76.5 % . [facility] No Panel InformationOrdered By: Trev Salmon on 10-28-2023 Estimated GFR (CKD-EPI) > 60.0 mL/Min [facility] Creatinine Clearance (Chem 92.05 [facility] Nucleated erythrocytes [Pres ence] in Blood by Automated countOrdered By: Trev Salmon on 10-28-2023 Nucleated RBC Auto Ql (Bld) 0.0 /100{WBC} 0-0.5 [facility] Partial Thromboplastin Timeo n 10-28-2023 aPTT Coag (Bld) [Time] 36.1 s Normal 25.1-36.5 [facility] Comment on above: Result Comment: A he matocrit value greater than 55% may lead to inaccurate results in coagulation testing. Patients having hematocrit values >55% require a special collection tube for coagulation studies. Please contact the laboratory at [phone] for redraw instructions. PERFORMED BY: [facility] [address] [place] [address] PATHOLOGIST PUMP SERVICER MELANI GUTÉIRREZ M.D. Performed By: #### B GTA, HS TROP, CMP, MG, PTT, CBC, PT ####[facility] [id number] Platelet mean volume Auto (B ld) [Entitic vol]Ordered By: Trev Salmon on 10-28-2023 Platelet mean volume (Bld) [Entitic vol] 8.7 fL 6.6-10.1 [facility] Platelets Auto (Bld) [#/Vol] Ordered By: Trev Salmon on 10-28-2023 Platelets (Bld) [#/Vol] 154 10*3/uL 150-450 [facility] Potassium [Moles/volume] in Serum or PlasmaOrdered By: Trev Salmon on 10-28-2023 Potassium [Moles/Vol] 3.8 mmol/L 3.5-5.1 [facility] Protein [Mass/volume] in Ser um or PlasmaOrdered By: Trev Salmon on 10-28-2023 Protein [Mass/Vol] 6.1 g/dL 6.4-8.9 [facility] Prothrombin Time INRon 10-28 INR Coag (PPP) [Relative time] 1.5 {INR} Normal [facility] Comment on above: Result Comment: INR Therapeutic [...] valves: 3 - 4.5 Performed By: #### B GTA, HS TROP, CMP, MG, PTT, CBC, PT ####[facility] [id number] [place] [id number] [facility] PT Coag (PPP) [Time] 17.5 s High 9.0-12.9 [facility] Comment on above: Result Comment: A he matocrit value greater than 55% may lead to inaccurate results in coagulation testing. Patients having hematocrit values >55% require a special collection tube for coagulation studies. Please contact the laboratory at [phone] for redraw instructions. Performed By: #### B GTA, HS TROP, CMP, MG, PTT, CBC, PT ####[facility] [id number] [place] [id number] [facility] Prothrombin time (PT)Ordered By: Trev Salmon on 10-28-2023 PT Coag (PPP) [Time] 17.5 s 9.0-12.9 [facility] Comment on above: A hematocrit value g reater than 55% may lead to inaccurate results in coagulation testing. Patients having hematocrit values >55% require a special collection tube for coagulation studies. Please contact the laboratory at [phone] for redraw instructions. RBC Auto (Bld) [#/Vol]Ordere d By: Trev Salmon on 10-28-2023 RBC (Bld) [#/Vol] 4.36 10*6/uL 3.90-5.60 [facility] Serum or plasma albumin/glob ulin mass ratioOrdered By: Trev Salmon on 10-28-2023 Albumin/Globulin [Mass ratio] 1.7 {ratio} [facility] Serum or plasma anion gap de terminationOrdered By: Trev Salmon on 10-28-2023 Anion gap [Moles/Vol] 13.0 mmol/L 6.0-15.0 [facility] Sodium [Moles/volume] in Ser um or PlasmaOrdered By: Trev Salmon on 10-28-2023 Sodium [Moles/Vol] 139 mmol/L 136-145 [facility] Troponin I High Sensitivityo n 10-28-2023 Troponin I High Sensitivity 9.1 pg/mL Normal 0.0-20.0 [facility] Comment on above: Result Comment: PERF ORMED BY: [place] [address] PATHOLOGIST PUMP SERVICER MELANI GUTIÉRREZ M.D. Performed By: #### B GTA, HS TROP, CMP, MG, PTT, CBC, PT ####[facility] [id number] Troponin I.cardiac [Mass/vol ume] in Serum or Plasma by Detection limit <= 0.01 ng/Ordered By: Trev Salmon on 10-28-2023 Troponin I.cardiac DL <= 0.01 ng/mL [Mass/Vol] 9.1 pg/mL 0.0-20.0 [facility] Urea nitrogen [Mass/volume] in Serum or PlasmaOrdered By: Trev Salmon on 10-28-2023 Urea nitrogen [Mass/Vol] 19 mg/dL 7-25 [facility] WBC Auto (Bld) [#/Vol]Ordere d By: Trev Salmon on 10-28-2023 WBC (Bld) [#/Vol] 6.5 10*3/uL 4.1-10.5 [facility] XR chest 1V portableon 10-28 XR chest 1V portable [facility] [place] [address] XRay Report Signed Patient: Harriett hTakkar MR#: [id number] 285 : 1965 Acct:[id number] Age/Sex: 58 / M ADM Date: 10/28/23 Loc: ER Room: Type: [facility] ER Attending Dr: Copies to: DO [...] Ruben Greco M.D.10/28/2023 12:11 PM Dictation Location: [place] [address] Transcribed By: [facility] 10/28/23 1211 Dictated By: Ruben Greco II, MD 10/28/23 1200 Signed By: 10/28/23 1211 Normal [facility] TRANSTHORACIC ECHO (TTE) [facility] 10-21-2023 TRANSTHORACIC ECHO (TTE) LIMITED [address], [address] [place] [address] TRANSTHORACIC ECHOCARDIOGRAM REPORT Patient Name: HARRIETT Shine Physician: [id number] Angel Griggs MD, [facility] Study Date: 10/21/2023 Ordering Provider: [id number] ANGEL GRIGGS MRN/PID: [id number] Fellow: Nurse: Date of /Age: 6 1965 / 58 years [employer] Layout: Harleen Penny RDCS, [facility] Gender: M Additional Staff: Height: 187.96 cm Admit Date: Weight: 136.08 kg Admission Status: BSA: 2.58 m2 Department Location: [facility] Blood Pressure: 102 /60 mmHg Study Type: TRANSTHORACIC ECHO (TTE) LIMITED Diagnosis/ICD: Other forms of dyspnea-R06.09; Ischemic cardiomyopathy-I25.5 Indication: Atrial Fibrillation-s/p Cardioversion 10/20/2023, Ablation-08/2023, Abnormal EKG, Nonsustained Ventricular Tachycardia, CAD, Diabetes, HTN, Hyperlipidemia, AICD, PR and PTCA, Atral Flutter, Orthostatic Hypotension, Morbid Obesity, ARLET, Neuropathy, History of PE, CKD-Stage III, PVD CPT Codes: Echo Limited-22214 Study Detail: The following Echo studies were [...] Normal Ranges: LVOT Diameter: 2.10 cm (1.8-2.4cm) [id number] Angel Griggs MD, [facility] Electronically signed on 10/21/2023 at 4:42:43 PM Final Normal [facility] US Heart Transthoracicon LVIDd 5.[address] [facility] Work Phone: LVOT diam 2.[address] [facility] Work Phone: [address], [address] [place] [address] TRANSTHORACIC ECHOCARDIOGRAM REPORT Patient Name: HARRIETT THAKKAR Fátima Physician: [id number] Angel Griggs MD, [facility] Study Date: 10/21/2023 Ordering Provider: [id number] ANGEL GRIGGS MRN/PID: [id number] Fellow: Nurse: Date of /Age: 6 1965 / 58 years [employer] Layout: Harleen Penny RDCS, RVT Gender: M Additional Staff: Height: 187.96 cm Admit Date: Weight: 136.08 kg Admission Status: BSA: 2.58 m2 Department Location: [facility] Blood Pressure: 102 /60 mmHg Study Type: TRANSTHORACIC ECHO (TTE) LIMITED Diagnosis/ICD: Other forms of dyspnea-R06.09; Ischemic cardiomyopathy-I25.5 Indication: Atrial Fibrillation-s/p Cardioversion 10/20/2023, Ablation-08/2023, Abnormal EKG, Nonsustained Ventricular Tachycardia, CAD, Diabetes, HTN, Hyperlipidemia, AICD, PR and PTCA, Atral Flutter, Orthostatic Hypotension, Morbid Obesity, ARLET, Neuropathy, History of PE, CKD-Stage III, PVD CPT Codes: Echo Limited-21405 Study Detail: The following Echo studies were [...] Normal Ranges: LVOT Diameter: 2.10 cm (1.8-2.4cm) [id number] Angel Griggs MD, FACC Electronically signed on 10/21/2023 at 4:42:43 PM Final Angel Rico MD - 10/21/[address], Suite [facility] [place] [address] TRANSTHORACIC ECHOCARDIOGRAM REPORT Patient Name: HARRIETT THAKKAR Fátima Physician: [id number] Angel Griggs MD, FACC Study Date: 10/21/2023 Ordering Provider: [id number] ANGEL GRIGGS MRN/PID: [id number] Fellow: Nurse: Date of /Age: 6 1965 / 58 years [employer] Layout: Harleen Penny RDCS, RVT Gender: M Additional Staff: Height: 187.96 cm Admit Date: Weight: 136.08 kg Admission Status: BSA: 2.58 m2 Department Location: [facility] Blood Pressure: 102 /60 mmHg Study Type: TRANSTHORACIC ECHO (TTE) LIMITED Diagnosis/ICD: Other forms of dyspnea-R06.09; Ischemic cardiomyopathy-I25.5 Indication: Atrial Fibrillation-s/p Cardioversion 10/20/2023, Ablation-08/2023, Abnormal EKG, Nonsustained Ventricular Tachycardia, CAD, Diabetes, HTN, Hyperlipidemia, AICD, PR and PTCA, Atral Flutter, Orthostatic Hypotension, Morbid Obesity, ARLET, Neuropathy, History of PE, CKD-Stage III, PVD CPT Codes: Echo Limited-42245 Study Detail: The following Echo studies were [...] Normal Ranges: LVOT Diameter: 2.10 cm (1.8-2.4cm) [id number] Angel Griggs MD, [facility] Electronically signed on 10/21/2023 at 4:42:43 PM Final [facility] Work Phone: [facility] Work Phone: Carbon dioxide, total [Moles /volume] in Serum or PlasmaOrdered By: Angel Griggs on 10-20-2023 CO2 [Moles/Vol] 27.9 mmol/L 21.0-31.0 [facility] Chloride [Moles/volume] in S suad or PlasmaOrdered By: Angel Griggs on 10-20-2023 Chloride [Moles/Vol] 104 mmol/L 98-107 [facility] ECG 12 lead ECGon 10-20-2023 ECG 12 lead ECG [facility] [place] [address] Electrocardiograph Report Signed Patient: Harriett Thakkar MR#: [id number] 285 : 1965 Acct:[id number] Age/Sex: 58 / M ADM Date: 10/20/23 Loc: Room: Type: [facility] Attending Dr: Angel Griggs MD Ordering Provider: Angel Griggs MD, [facility] Date of Service: 10/20/2310/12/1244 ECG/ECG [...] changes have occurred Confirmed by Arslan Gage ([id number]) on 10/22/2023 2:11:36 PM Referred By: Angel Griggs Electronically Signed By:Arslan Gage REVISED DOCUMENT/11/10/2023/ kh (corrected prov sig) Transcribed By: MUS Signed By Arslan Gage MD 11/11/23 1233 Normal [facility] ECG post procedureon 024 ECG post procedure [facility] [place] [address] Electrocardiograph Report Signed Patient: Harriett Thakkar MR#: [id number] 285 : 1965 Acct:[id number] Age/Sex: 58 / M ADM Date: 10/20/23 Loc: Room: Type: [facility] Attending Dr: Angel Griggs MD Ordering Provider: Angel Griggs MD, [facility] Date of Service: 10/20/23/ ECG/ECG [...] longer present Confirmed by Hillary De Leon ([id number]) on 10/20/2023 5:25:29 PM Referred By: Angel Griggs Electronically Signed By:Hillary De Leon REVISED DOCUMENT/11/10/2023/ que (corrected prov sig) Transcribed By: MUS Signed By Hillary De Leon MD 4 0005 Normal [facility] Electrolyteson 10-20-2023 Anion gap [Moles/Vol] 12.2 mmol/L Normal 6.0-15.0 [facility] Comment on above: Result Comment: PERF ORMED BY: [facility] [address] [place] [id number] PATHOLOGIST PUMP SERVICER MELANI GUTIÉRREZ M.D. Performed By: #### L YTES ####[place] [id number] [place] [id number] [facility] Chloride [Moles/Vol] 104 mmol/L Normal 98-107 [facility] Comment on above: Performed By: #### L YTES ####[address] [address] [facility] CO2 [Moles/Vol] 27.9 mmol/L Normal 21.0-31.0 [facility] Comment on above: Performed By: #### L YTES ####[address] [address] [facility] Potassium [Moles/Vol] 4.1 mmol/L Normal 3.5-5.1 [facility] Comment on above: Performed By: #### L YTES ####[place] [id number] [place] [address] [facility] Sodium [Moles/Vol] 140 mmol/L Normal 136-145 [facility] Comment on above: Performed By: #### L YTES ####[address] [address] [place] Potassium [Moles/volume] in Serum or PlasmaOrdered By: Angel Griggs on 10-20-2023 Potassium [Moles/Vol] 4.1 mmol/L 3.5-5.1 [facility] Serum or plasma anion gap de terminationOrdered By: Angel Griggs on 10-20-2023 Anion gap [Moles/Vol] 12.2 mmol/L 6.0-15.0 [facility] Sodium [Moles/volume] in Ser um or PlasmaOrdered By: Angel Griggs on 10-20-2023 Sodium [Moles/Vol] 140 mmol/L 136-145 [facility] [facility] ECG 12 Leadon 10-18-2023 ECG revealed atrial flutter with variable AV conduction, low voltage, anteroseptal myocardial infarction of undetermined age [facility] Work Phone: Activated partial thrombopla stin time (aPTT) in platelet poor plasma by coagulation aOrdered By: José Luis Coleman on 09-14-2023 aPTT Coag (PPP) [Time] 35.2 s 25.1-36.5 [facility] Comment on above: A hematocrit value g reater than 55% may lead to inaccurate results in coagulation testing. Patients having hematocrit values >55% require a special collection tube for coagulation studies. Please contact the laboratory at [phone] for redraw instructions. Alanine aminotransferase [En zymatic activity/volume] in Serum or PlasmaOrdered By: José Luis Coleman on 09-14-2023 ALT [Catalytic activity/Vol] 21 U/L Normal 7-52 [facility] Comment on above: Performed By: #### H S TROP, PT, BNP, HEPATIC, CK, BMP, CBC, PTT ####[id number] Albumin [Mass/volume] in Ser um or Plasma by Bromocresol green (BCG) dye binding methoOrdered By: José Luis Coleman on 09-14-2023 Albumin BCG dye [Mass/Vol] 4.1 g/dL 3.5-5.7 [facility] Alkaline phosphatase [Enzyma tic activity/volume] in Serum or PlasmaOrdered By: José Luis Coleman on 09-14-2023 ALP [Catalytic activity/Vol] 73 U/L Normal 34-104 [facility] Comment on above: Performed By: #### H S TROP, PT, BNP, HEPATIC, CK, BMP, CBC, PTT ####[facility] [id number] [place] [address] [place] Aspartate aminotransferase [ Enzymatic activity/volume] in Serum or PlasmaOrdered By: José Luis Coleman on 09-14-2023 AST [Catalytic activity/Vol] 19 U/L Normal 13-39 [facility] Comment on above: Performed By: #### H S TROP, PT, BNP, HEPATIC, CK, BMP, CBC, PTT ####[place] [id number] [address] Automated basophil %Ordered By: José Luis Coleman on 09-14-2023 Basophils/100 WBC (Bld) 0.8 % Normal . [facility] Comment on above: Performed By: #### H S TROP, PT, BNP, HEPATIC, CK, BMP, CBC, PTT ####[address] Automated basophil countOrde red By: José Luis Coleman on 09-14-2023 Basophils (Bld) [#/Vol] 0.1 10*3/uL Normal 0.0-0.2 [facility] Comment on above: Result Comment: PERF ORMED BY: [facility] [address] [facility] [place] [address] PATHOLOGIST [employer] SERVIC[employer] MELANI GUTIÉRREZ M.D. Performed By: #### H S TROP, PT, BNP, HEPATIC, CK, BMP, CBC, PTT ####[address] Automated blood monocyte cou ntOrdered By: José Luis Coleman on 09-14-2023 Monocytes (Bld) [#/Vol] 0.7 10*3/uL Normal 0.0-0.8 [facility] Comment on above: Performed By: #### H S TROP, PT, BNP, HEPATIC, CK, BMP, CBC, PTT ####[address] Automated eosinophil %Ordere d By: José Luis Coleman on 09-14-2023 Eosinophils/100 WBC (Bld) 1.5 % Normal . [facility] Comment on above: Performed By: #### H S TROP, PT, BNP, HEPATIC, CK, BMP, CBC, PTT ####[address] Automated eosinophil countOr dered By: José Luis Coleman on 09-14-2023 Eosinophils (Bld) [#/Vol] 0.1 10*3/uL Normal 0.0-0.45 [facility] Comment on above: Performed By: #### H S TROP, PT, BNP, HEPATIC, CK, BMP, CBC, PTT ####[address] Automated monocyte %Ordered By: José Luis Coleman on 09-14-2023 Monocytes/100 WBC (Bld) 8.9 % Normal . [facility] Comment on above: Performed By: #### H S TROP, PT, BNP, HEPATIC, CK, BMP, CBC, PTT ####[address] Automated neutrophil %Ordere d By: José Luis Coleman on 09-14-2023 Neutrophils/100 WBC (Bld) 69.2 % Normal . [facility] Comment on above: Performed By: #### H S TROP, PT, BNP, HEPATIC, CK, BMP, CBC, PTT ####[address] BNP ser/plasOrdered By: Inez derek Coleman on 09-14-2023 Natriuretic peptide B (Bld) [Mass/Vol] 279.0 pg/mL High 5-100 [facility] Comment on above: Result Comment: PERF ORMED BY: [address] [place] [address] PATHOLOGIST [employer] SERVICER MELANI GUTIÉRREZ M.D. Performed By: #### H S TROP, PT, BNP, HEPATIC, CK, BMP, CBC, PTT ####[place] [id number] [facility] Basic Metabolic Panelon 08-20 Creatinine Clr Calc Pharmacy 94.74 Normal [facility] Comment on above: Result Comment: PERF ORMED BY: [facility] [address] [facility] [place] [address] PATHOLOGIST PU[employer] SERVICER MELANI GUTIÉRREZ M.D. Performed By: #### H S TROP, PT, BNP, HEPATIC, CK, BMP, CBC, PTT ####[address] GFR/1.73 sq M.predicted MDRD (S/P/Bld) [Vol rate/Area] mL/min/{1.73_m2} Normal [facility] Comment on above: Performed By: #### H S TROP, PT, BNP, HEPATIC, CK, BMP, CBC, PTT ####[address] Bilirubin.direct [Mass/volum e] in Serum or PlasmaOrdered By: José Luis Coleman on 09-14-2023 Bilirubin.direct [Mass/Vol] 0.20 mg/dL 0.03-0.18 [facility] Bilirubin.total [Mass/volume ] in Serum or PlasmaOrdered By: José Luis Coleman on 09-14-2023 Bilirubin [Mass/Vol] 0.7 mg/dL Normal 0.3-1.0 [facility] Comment on above: Performed By: #### H S TROP, PT, BNP, HEPATIC, CK, BMP, CBC, PTT ####[address] Calcium [Mass/volume] in Ser um or PlasmaOrdered By: José Luis Coleman on 09-14-2023 Calcium [Mass/Vol] 9.4 mg/dL Normal 8.6-10.3 [facility] Comment on above: Performed By: #### H S TROP, PT, BNP, HEPATIC, CK, BMP, CBC, PTT ####[address] Carbon dioxide, total [Moles /volume] in Serum or PlasmaOrdered By: José Luis Coleman on 09-14-2023 CO2 [Moles/Vol] 29.8 mmol/L Normal 21.0-31.0 [facility] Comment on above: Performed By: #### H S TROP, PT, BNP, HEPATIC, CK, BMP, CBC, PTT ####[place] [id number] [facility] Chloride [Moles/volume] in S suad or PlasmaOrdered By: José Luis Coleman on 09-14-2023 Chloride [Moles/Vol] 104 mmol/L Normal 98-107 [facility] Comment on above: Performed By: #### H S TROP, PT, BNP, HEPATIC, CK, BMP, CBC, PTT ####[address] Complete Blood Count Auto Di ffon 09-14-2023 Mean Corpuscular HGB Conc 35.2 g/dL Normal 32.5-35.6 [facility] Comment on above: Performed By: #### H S TROP, PT, BNP, HEPATIC, CK, BMP, CBC, PTT ####[address] Monocytes/100 WBC (Bld) 19.54 % Normal 0.00-20.00 [facility] Comment on above: Performed By: #### H S TROP, PT, BNP, HEPATIC, CK, BMP, CBC, PTT ####[address] NRBC% 0.1 /100{WBC} Normal 0-0.5 [facility] Comment on above: Performed By: #### H S TROP, PT, BNP, HEPATIC, CK, BMP, CBC, PTT ####[address] Creatine kinase [Enzymatic a ctivity/volume] in Serum or PlasmaOrdered By: José Luis Coleman on 09-14-2023 CK [Catalytic activity/Vol] 68 U/L Normal 30-223 [facility] Comment on above: Performed By: #### H S TROP, PT, BNP, HEPATIC, CK, BMP, CBC, PTT ####[address] Creatinine [Mass/volume] in Serum or PlasmaOrdered By: José Luis Coleman on 09-14-2023 Creatinine [Mass/Vol] 1.23 mg/dL Normal 0.70-1.30 [facility] Comment on above: Performed By: #### H S TROP, PT, BNP, HEPATIC, CK, BMP, CBC, PTT ####[address] [place] [address] [facility] ECG 12 lead ECGon 09-14-2023 ECG 12 lead ECG [facility] [place] [address] [place] [id number] Electrocardiograph Report Signed Patient: Harriett Thakkar MR#: [id number] 285 : 1965 Acct:[id number] Age/Sex: 58 / M ADM Date: 09/14/23 Loc: ER Room: Type: [facility] ER Attending Dr: Ordering Provider: José [...] right Confirmed by José Luis Coleman DO ([id number]) on 09/14/2023 8:33:06 PM Referred By: Electronically Signed By:José Luis Coleman DO Transcribed By: MUS Signed By José Luis Coleman DO 2032 Normal [facility] Erythrocyte distribution wid th [Ratio] by Automated countOrdered By: José Luis Coleman on 09-14-2023 Erythrocyte distribution width (RBC) [Ratio] 15.8 % High 12.0-14.8 [facility] Comment on above: Performed By: #### H S TROP, PT, BNP, HEPATIC, CK, BMP, CBC, PTT ####[facility] [id number] [place] [id number] [facility] Erythrocytes [#/volume] in B lood by Automated countOrdered By: José Luis Coleman on 09-14-2023 RBC (Bld) [#/Vol] 4.23 10*6/uL Normal 3.90-5.60 [facility] Comment on above: Performed By: #### H S TROP, PT, BNP, HEPATIC, CK, BMP, CBC, PTT ####[address] Glucose [Mass/volume] in Ser um or PlasmaOrdered By: José Luis Coleman on 09-14-2023 Glucose [Mass/Vol] 84 mg/dL Normal 70-100 [facility] Comment on above: ADA recommended refe rence rangeRandom Glucose Reference Range is dependent on time and content of last meal. Glucose of more than 200 mg/dL in a nonstressed, ambulatory subject supports the diagnosis of Diabetes Mellitus. Result Comment: [place] om Glucose Reference Range is dependent on time and content of last meal. Glucose of more than 200 mg/dL in a nonstressed, ambulatory subject supports the diagnosis of Diabetes Mellitus. ADA recommended reference range Performed By: #### H S TROP, PT, BNP, HEPATIC, CK, BMP, CBC, PTT ####[address] Hematocrit [Volume Fraction] of Blood by Automated countOrdered By: José Luis Coleman on 09-14-2023 Hematocrit (Bld) [Volume fraction] 39.4 % Normal 38.8-50.0 [facility] Comment on above: Performed By: #### H S TROP, PT, BNP, HEPATIC, CK, BMP, CBC, PTT ####[address] Hemoglobin [Mass/volume] in BloodOrdered By: José Luis Coleman on 09-14-2023 Hemoglobin (Bld) [Mass/Vol] 13.9 g/dL Normal 13.0-17.0 [facility] Comment on above: Performed By: #### H S TROP, PT, BNP, HEPATIC, CK, BMP, CBC, PTT ####[place] [id number] [facility] Hepatic Panelon 09-14-2023 Albumin [Mass/Vol] 4.1 g/dL Normal 3.5-5.7 [facility] Comment on above: Performed By: #### H S TROP, PT, BNP, HEPATIC, CK, BMP, CBC, PTT ####[facility] [place] [address] [facility] Bilirubin,Indirect 0.5 mg/dL Normal [facility] Comment on above: Performed By: #### H S TROP, PT, BNP, HEPATIC, CK, BMP, CBC, PTT ####[facility] [place] [id number] [facility] Bilirubin.indirect [Mass/Vol] 0.20 mg/dL High 0.03-0.18 [facility] Comment on above: Performed By: #### H S TROP, PT, BNP, HEPATIC, CK, BMP, CBC, PTT ####[facility] INR in Platelet poor plasma by Coagulation assayOrdered By: José Luis Coleman on 09-14-2023 INR Coag (PPP) [Relative time] 1.5 {INR} Normal [facility] Comment on above: INR Therapeutic Rang [...] 4.5 Performed By: #### H S TROP, PT, BNP, HEPATIC, CK, BMP, CBC, PTT ####[place] [id number] [place] [id number] [facility] Leukocytes [#/volume] correc kaylee for nucleated erythrocytes in Blood by Automated counOrdered By: José Luis Coleman on 09-14-2023 WBC corrected for nucl RBC Auto (Bld) [#/Vol] 7.4 10*3/uL 4.1-10.5 [facility] Leukocytes [#/volume] in Blo od by Automated countOrdered By: José Luis Coleman on 09-14-2023 WBC (Bld) [#/Vol] 7.4 10*3/uL Normal 4.1-10.5 [facility] Comment on above: Performed By: #### H S TROP, PT, BNP, HEPATIC, CK, BMP, CBC, PTT ####[address] Lymphocytes [#/volume] in Bl ood by Automated countOrdered By: José Luis Coleman on 09-14-2023 Lymphocytes (Bld) [#/Vol] 1.4 10*3/uL Normal 1.00-4.8 [facility] Comment on above: Performed By: #### H S TROP, PT, BNP, HEPATIC, CK, BMP, CBC, PTT ####[address] Lymphocytes/100 leukocytes i n Blood by Automated countOrdered By: José Luis Coleman on 09-14-2023 Lymphocytes/100 WBC (Bld) 19.6 % Normal . [facility] Comment on above: Performed By: #### H S TROP, PT, BNP, HEPATIC, CK, BMP, CBC, PTT ####[address] MCH [Entitic mass] by Automa kaylee countOrdered By: José Luis Coleman on 09-14-2023 MCH (RBC) [Entitic mass] 32.7 pg Normal 27.5-35.2 [facility] Comment on above: Performed By: #### H S TROP, PT, BNP, HEPATIC, CK, BMP, CBC, PTT ####[address] MCHC Auto (RBC) [Mass/Vol]Or dered By: José Luis Coleman on 09-14-2023 MCHC (RBC) [Mass/Vol] 35.2 g/dL 32.5-35.6 [facility] MCV [Entitic volume] by Auto mated countOrdered By: José Luis Coleman on 09-14-2023 MCV (RBC) [Entitic vol] 93.0 fL Normal 83.5-101 [facility] Comment on above: Performed By: #### H S TROP, PT, BNP, HEPATIC, CK, BMP, CBC, PTT ####[facility] [place] [id number] [facility] Monocyte distribution width [Entitic volume] in Blood by AutomatedOrdered By: José Luis Coleman on 09-14-2023 Monocyte distribution width Auto (Bld) [Entitic vol] 19.54 % 0.00-20.00 [facility] Neutrophils [#/volume] in Bl ood by Automated countOrdered By: José Luis Coleman on 09-14-2023 Neutrophils (Bld) [#/Vol] 5.1 10*3/uL Normal 1.8-7.7 [facility] Comment on above: Performed By: #### H S TROP, PT, BNP, HEPATIC, CK, BMP, CBC, PTT ####[place] [id number] [address] No Panel InformationOrdered By: José Luis Coleman on 09-14-2023 Estimated GFR (CKD-EPI) > 60.0 mL/Min [facility] Creatinine Clearance (Chem 94.74 [facility] Nucleated erythrocytes [Pres ence] in Blood by Automated countOrdered By: José Luis Coleman on 09-14-2023 Nucleated RBC Auto Ql (Bld) 0.1 /100{WBC} 0-0.5 [facility] Partial Thromboplastin Timeo n 09-14-2023 aPTT Coag (Bld) [Time] 35.2 s Normal 25.1-36.5 [facility] Comment on above: Result Comment: A he matocrit value greater than 55% may lead to inaccurate results in coagulation testing. Patients having hematocrit values >55% require a special collection tube for coagulation studies. Please contact the laboratory at [phone] for redraw instructions. PERFORMED BY: [facility] [address] [place] [id number] PATHOLOGIST PUMP SERVICER MELANI GUTIÉRREZ M.D. Performed By: #### H S TROP, PT, BNP, HEPATIC, CK, BMP, CBC, PTT ####[place] [id number] [facility] Platelet mean volume [Entiti c volume] in Blood by Automated countOrdered By: José Luis Coleman on 09-14-2023 Platelet mean volume (Bld) [Entitic vol] 8.8 fL Normal 6.6-10.1 [facility] Comment on above: Performed By: #### H S TROP, PT, BNP, HEPATIC, CK, BMP, CBC, PTT ####[place] [id number] [facility] Platelets [#/volume] in Bloo d by Automated countOrdered By: José Luis Coleman on 09-14-2023 Platelets (Bld) [#/Vol] 197 10*3/uL Normal 150-450 [facility] Comment on above: Performed By: #### H S TROP, PT, BNP, HEPATIC, CK, BMP, CBC, PTT ####[place] [id number] [facility] Potassium [Moles/volume] in Serum or PlasmaOrdered By: José Luis Coleman on 09-14-2023 Potassium [Moles/Vol] 4.0 mmol/L Normal 3.5-5.1 [facility] Comment on above: Performed By: #### H S TROP, PT, BNP, HEPATIC, CK, BMP, CBC, PTT ####[place] [id number] [facility] Protein [Mass/volume] in Ser um or PlasmaOrdered By: José Luis Coleman on 09-14-2023 Protein [Mass/Vol] 6.4 g/dL Normal 6.4-8.9 [facility] Comment on above: Performed By: #### H S TROP, PT, BNP, HEPATIC, CK, BMP, CBC, PTT ####[place] [id number] [facility] Prothrombin time (PT)Ordered By: José Luis Coleman on 09-14-2023 PT Coag (PPP) [Time] 16.7 s High 9.0-12.9 [facility] Comment on above: A hematocrit value g reater than 55% may lead to inaccurate results in coagulation testing. Patients having hematocrit values >55% require a special collection tube for coagulation studies. Please contact the laboratory at [phone] for redraw instructions. Result Comment: A he matocrit value greater than 55% may lead to inaccurate results in coagulation testing. Patients having hematocrit values >55% require a special collection tube for coagulation studies. Please contact the laboratory at [phone] for redraw instructions. Performed By: #### H S TROP, PT, BNP, HEPATIC, CK, BMP, CBC, PTT ####[address] Serum globulin measurement b y calculation (mass/volume)Ordered By: José Luis Coleman on 09-14-2023 Globulin (S) [Mass/Vol] 2.3 g/dL Normal [facility] Comment on above: Performed By: #### H S TROP, PT, BNP, HEPATIC, CK, BMP, CBC, PTT ####[address] Serum or plasma albumin/glob ulin mass ratioOrdered By: José Luis Coleman on 09-14-2023 Albumin/Globulin [Mass ratio] 1.8 {ratio} Normal [facility] Comment on above: Performed By: #### H S TROP, PT, BNP, HEPATIC, CK, BMP, CBC, PTT ####[address] Serum or plasma anion gap de terminationOrdered By: José Luis Coleman on 09-14-2023 Anion gap [Moles/Vol] 7.2 mmol/L Normal 6.0-15.0 [facility] Comment on above: Performed By: #### H S TROP, PT, BNP, HEPATIC, CK, BMP, CBC, PTT ####[address] Serum or plasma non-glucuron idated bilirubin measurement (mass/volume)Ordered By: José Luis Coleman on 09-14-2023 Bilirubin.indirect [Mass/Vol] 0.5 mg/dL [facility] Sodium [Moles/volume] in Ser um or PlasmaOrdered By: José Luis Coleman on 09-14-2023 Sodium [Moles/Vol] 137 mmol/L Normal 136-145 [facility] Comment on above: Performed By: #### H S TROP, PT, BNP, HEPATIC, CK, BMP, CBC, PTT ####[place] [address] [place] [address] [facility] Troponin I High Sensitivityo n 09-14-2023 Troponin I High Sensitivity 13.7 pg/mL Normal 0.0-20.0 [facility] Comment on above: Result Comment: PERF ORMED BY: [facility] [address] [place] [address] PATHOLOGIST PU[employer] SERVICER MELANI GUTIÉRREZ M.D. Performed By: #### H S TROP, PT, BNP, HEPATIC, CK, BMP, CBC, PTT ####[address] [address] [facility] Troponin I.cardiac [Mass/vol ume] in Serum or Plasma by Detection limit <= 0.01 ng/Ordered By: José Luis Coleman on 09-14-2023 Troponin I.cardiac DL <= 0.01 ng/mL [Mass/Vol] 13.7 pg/mL 0.0-20.0 [facility] Urea nitrogen [Mass/volume] in Serum or PlasmaOrdered By: José Luis Coleman on 09-14-2023 Urea nitrogen [Mass/Vol] 20 mg/dL Normal 7-25 [facility] Comment on above: Performed By: #### H S TROP, PT, BNP, HEPATIC, CK, BMP, CBC, PTT ####[place] [address] [place] [address] [facility] XR chest 1V portableon 09-14 XR chest 1V portable [facility] [address] [place] [address] [place] [address] XRay Report Signed Patient: Harriett Thakkar MR#: [id number] 285 : 1965 Acct:[id number] Age/Sex: 58 / M ADM Date: 09/14/23 Loc: ER Room: Type: [facility] ER Attending Dr: Copies to: José [...] Michele Maldonado M.D.09/14/2023 8:45 PM Dictation Location: [place] [address] Transcribed By: [facility] 09/14/232044 Dictated By: Michele Maldonado DO 09/14/232043 Signed By: 09/14/232044 Normal [facility] Glucose Test strip manual (B ld) [Mass/Vol]on 08-31-2023 Glucose [Mass/Vol] 262 mg/dL High 74-[address] [facility] Comment on above: Performed By: #### 3 4529-8 #### TD PERALTA ([id number]) [facility] ([facility]) [address] [place] [address] Glucose [Mass/Vol] 262 mg/dL High 74 - 99 mg/dL [facility] Interpretation and review of laboratory results Abnormal [facility] Glucose [Mass/Vol] 254 mg/dL High 74-[address] [facility] Comment on above: Performed By: #### 3 4529-8 #### TD PERALTA ([id number]) [facility] ([facility]) [address] [place] [address] Glucose [Mass/Vol] 254 mg/dL High 74 - 99 mg/dL [facility] Interpretation and review of laboratory results Abnormal [facility] Glucose [Mass/Vol] 140 mg/dL High 74-[address] [facility] Comment on above: Performed By: #### 3 4529-8 #### TD PERALTA ([id number]) [facility] ([facility]) [address] [place] [address] Glucose [Mass/Vol] 140 mg/dL High 74 - 99 mg/dL [facility] Interpretation and review of laboratory results Abnormal [facility] XR Chest Single viewon 08-31 1. Mild right hilar prominence, possibly secondary to adenopathy. Otherwise, evidence of acute cardiopulmonary process. Signed by: Kevin Loco 08/31/2023 6:27 PM Dictation workstation: [id number] Interpreted By: Kevin Loco, STUDY: XR CHEST 1 VIEW; 08/30/2023 2:29 pm INDICATION: Signs/Symptoms:short of breath. COMPARISON: Chest radiograph 06/30/2023 ACCESSION NUMBER(S): [id number] ORDERING CLINICIAN: NATHAN AU FINDINGS: AP radiograph [...] Loco MD - 08/31/2023 Interpreted By: Kevin Loco, STUDY: XR CHEST 1 VIEW; 08/30/2023 2:29 pm INDICATION: Signs/Symptoms:short of breath. COMPARISON: Chest radiograph 06/30/2023 ACCESSION NUMBER(S): [id number] ORDERING CLINICIAN: NATHAN AU FINDINGS: AP radiograph [...] Kevin Loco 08/31/2023 6:27 PM Dictation workstation: [id number] [facility] Work Phone: XR Chest Single viewOrdered By: Kevin Loco on 08-31-[address] [facility] Work Phone: ECG 12-LEADon 08-30-2023 ECG 12-LEAD Ventricular Rate 99 Atrial Rate 99 P-R Interval 216 QRS Duration 90 Q-T Interval 370 QTC Calculation(Bazett) 474 P [place] 57 R [place] 56 T [place] -6 QRS Count 16 Q Onset 221 [...] Echevarria ([id number]) on 10/07/2023 9:33:04 AM Normal [facility] Glucose Test strip manual (B ld) [Mass/Vol]on 08-30-2023 Glucose [Mass/Vol] 205 mg/dL High 74-[address] [facility] Comment on above: Performed By: #### 3 4529-8 #### TD PERALTA ([id number]) [facility] ([facility]) [address] [place] [address] Glucose [Mass/Vol] 205 mg/dL High 74 - 99 mg/dL [facility] Interpretation and review of laboratory results Abnormal [facility] Glucose [Mass/Vol] 189 mg/dL High 74-[address] [facility] Comment on above: Performed By: #### 3 4529-8 #### TD PERALTA ([id number]) [facility] ([facility]) [address] [place] [address] Glucose [Mass/Vol] 189 mg/dL High 74 - 99 mg/dL [facility] Interpretation and review of laboratory results Abnormal [facility] Glucose [Mass/Vol] 247 mg/dL High 74 - 99 mg/dL [facility] Interpretation and review of laboratory results Abnormal [facility] Glucose [Mass/Vol] 247 mg/dL High 74-[address] [facility] Comment on above: Performed By: #### 3 4529-8 #### TD PERALTA ([id number]) [facility] ([facility]) [address] [place] [address] Glucose [Mass/Vol] 174 mg/dL High 74-[address] [facility] Comment on above: Performed By: #### 3 4529-8 #### TD CARLOSI ([id number]) [facility] ([facility]) [address] [place] [address] Glucose [Mass/Vol] 174 mg/dL High 74 - 99 mg/dL [facility] Interpretation and review of laboratory results Abnormal [facility] XR CHEST 1 VIEWon 08-30-2023 XR CHEST 1 VIEW Interpreted By: Kevin Loco, STUDY: XR CHEST 1 VIEW; 08/30/2023 2:29 pm INDICATION: Signs/Symptoms:short of breath. COMPARISON: Chest radiograph 06/30/2023 ACCESSION NUMBER(S): [id number] ORDERING CLINICIAN: NATHAN AU FINDINGS: AP radiograph [...] Kevin Loco 08/31/2023 6:27 PM Dictation workstation: [id number] Normal [facility] XR Chest Single viewon 08-30 Radiology Study observation (narrative) [facility] Work Phone: Activated clotting timeon ACT Coag (Bld) [address] Comment on above: Result Comment: Targ et ACT range will vary based on the patient population, clinical status, and surgical intervention occurring. Performed By: #### 3 4529-8 #### TD PERALTA ([id number]) [facility] ([facility]) [address] [place] [address] ACT Coag (Bld) [address] Comment on above: Result Comment: Targ et ACT range will vary based on the patient population, clinical status, and surgical intervention occurring. Performed By: #### 2 341-6 #### TD JOLLYFRI ([id number]) [facility] ([facility]) [address] [place] [address] ACT Coag (Bld) [address] Comment on above: Result Comment: Targ et ACT range will vary based on the patient population, clinical status, and surgical intervention occurring. Performed By: #### 2 341-6 #### TD JOLLYFRI ([id number]) [facility] ([facility]) [address] [place] [address] ACT Coag (Bld) [address] Comment on above: Result Comment: Targ et ACT range will vary based on the patient population, clinical status, and surgical intervention occurring. Performed By: #### 3 4529-8 #### TD JOLLYFRI ([id number]) [facility] ([facility]) [address] [place] [address] ACT Coag (Bld) [address] Comment on above: Result Comment: Targ et ACT range will vary based on the patient population, clinical status, and surgical intervention occurring. Performed By: #### 2 341-6 #### TD KATHRYN ([id number]) [facility] ([facility]) [address] [place] [address] ACT Coag (Bld) [address] Comment on above: Result Comment: Targ et ACT range will vary based on the patient population, clinical status, and surgical intervention occurring. Performed By: #### 2 341-6 #### TD PERALTA ([id number]) [facility] ([facility]) [address] [place] [place] [address] ACT Coag (Bld) [address] Comment on above: Result Comment: Targ et ACT range will vary based on the patient population, clinical status, and surgical intervention occurring. Performed By: #### 2 341-6 #### TD PERALTA ([id number]) [facility] ([facility]) [address] [place] [place] [address] ACT Coag (Bld) [address] [facility] Comment on above: Result Comment: Targ et ACT range will vary based on the patient population, clinical status, and surgical intervention occurring. Performed By: #### 2 341-6 #### TD PERALTA ([id number]) [facility] ([facility]) [address] [place] [address] Coagulation tissue factor in ducedon 08-29-2023 PT Coag (PPP) [Time] 14.9 s High 9.8-12.8 [facility] Comment on above: Performed By: #### 5 902-2 #### TD PERALTA ([id number]) [facility] ([facility]) [address] [place] [address] ECG 12-LEADon 08-29-2023 ECG 12-LEAD Ventricular Rate 75 Atrial Rate 326 QRS Duration 90 Q-T Interval 390 QTC Calculation(Bazett) 435 R [place] 63 T [place] 14 QRS Count 12 Q Onset 217 T Offset 412 QTC Fredericia 419 Diagnosis Atrial fibrillation with occasional ventricular-paced complexes Low voltage QRS Cannot rule out Anteroseptal infarct , age undetermined Abnormal ECG Confirmed by Brice Young (13) on 09/02/2023 3:53:55 PM Normal [facility] Electrophysiology studyon Addendum by Lior Villeda MD on 08/29/2023 1:59 PM EST Persistent Atrial Fibrillation ablation Procedures Atrial Fibrillation ablation (09683), LA Pacing and recording (83577), 3D Mapping (84704), Intracardiac Echocardiogram (68685), Transseptal Catheterization (46292), Ultrasound Guided vascular access (73008),Additional Afib Ablation (31342) Direct current cardioversion (75680) Patient history: Please refer to the detailed [...] under general anesthesia (administered and monitored by relays draftsperson and SCHOOL PRINCIPAL). Anesthesia sedated and intubated the patient without [...] then switched to a deflectable sheath Medium Nuevo Midstream Agilis Under fluoroscopic guidance a intracardiac echocardiogram catheter was introduced into the right atrium. The right atrium, left atrium, left atrial appendage, RV were evaluated. No obvious structural abnormalities were noted. Initial imaging revealed No pericardial effusion. 47[address] units of heparin were given and a [...] capture. Post ablati (more content not included)... [facility] Work Phone: [facility] Work Phone: Glucose Test strip manual (B ld) [Mass/Vol]on 08-29-2023 Glucose [Mass/Vol] 216 mg/dL High 74-[address] [facility] Comment on above: Performed By: #### 2 341-6 #### TD PERALTA ([id number]) [facility] ([facility]) [address] [place] [address] Glucose [Mass/Vol] 216 mg/dL High 74 - 99 mg/dL [facility] Interpretation and review of laboratory results Abnormal [facility] Glucose [Mass/Vol] 226 mg/dL High 74-[address] [facility] Comment on above: Performed By: #### 2 341-6 #### TD PERALTA ([id number]) [facility] ([facility]) [address] [place] [address] Glucose [Mass/Vol] 226 mg/dL High 74 - 99 mg/dL [facility] Interpretation and review of laboratory results Abnormal [facility] PT Coag (PPP) [Time]on 08-29 INR Coag (PPP) [Relative time] 1.3 High 0.9-1.1 [facility] Comment on above: Performed By: #### 5 902-2 #### TD PERALTA ([id number]) [facility] ([facility]) [address] [place] [address] INR Coag (PPP) [Relative time] 1.3 {INR} High 0.9 - 1.[address] [facility] Interpretation and review of laboratory results Abnormal [facility] Protime-INRon 08-29-2023 PT Coag (PPP) [Time] 14.9 s High [facility] TRANSESOPHAGEAL ECHO (CLEO)on 08-29-2023 TRANSESOPHAGEAL ECHO (CLEO) [facility], [address] [place] [address] [id number] [phone] and TRANSESOPHAGEAL ECHOCARDIOGRAM REPORT Patient Name: HARRIETT Shine Physician: [id number] Guille Cunha MD Study Date: 08/29/2023 Ordering Provider: [id number] LIOR VILLEDA MRN/PID: [id number] Fellow: Nurse: Date of /Age: 6 1965 / 58 years [employer] Layout: Flakito Shaikh RDCS, MACK Gender: M Additional Staff: Height: 187.96 cm Admit Date: 08/29/2023 Weight: 145.61 kg Admission Status: Outpatient BSA: 2.66 m2 Department Location: [facility] Blood Pressure: 157 /92 mmHg Study Type: TRANSESOPHAGEAL ECHO (CLEO) Diagnosis/ICD: Unspecified atrial fibrillation-I48.91 Indication: Abnormal EKG CPT Code: CLEO Complete-74080; Doppler Limited-61604; Color Doppler-13683 Patient History: Pertinent History: A-Fib, HTN, Hyperlipidemia, [...] No left atrial thrombus. QUANTITATIVE DATA SUMMARY: [id number] Guille Cunha MD Electronically signed on 08/29/2023 at 9:33:09 AM Final [facility] US Heart Transesophagealon 1 10-30-2022 [facility], [address] [place] [address] [id number] [phone] and TRANSESOPHAGEAL ECHOCARDIOGRAM REPORT Patient Name: HARRIETT Shine Physician: [id number] Guille Cunha MD Study Date: 08/29/2023 Ordering Provider: [id number] VILLEDA MRN/PID: [id number] Fellow: Nurse: Date of /Age: 6 1965 / 58 years [employer] Layout: MACK Gorman RDCS Gender: M Additional Staff: Height: 187.96 cm Admit Date: 08/29/2023 Weight: 145.61 kg Admission Status: Outpatient BSA: 2.66 m2 Department Location: [facility] Blood Pressure: 157 /92 mmHg Study Type: TRANSESOPHAGEAL ECHO (CLEO) Diagnosis/ICD: Unspecified atrial fibrillation-I48.91 Indication: Abnormal EKG CPT Code: CLEO Complete-11924; Doppler Limited-85853; Color Doppler-93944 Patient History: Pertinent History: A-Fib, HTN, Hyperlipidemia, [...] No left atrial thrombus. QUANTITATIVE DATA SUMMARY: [id number] Guille Cunha MD Electronically signed on 08/29/2023 at 9:33:09 AM Final Guille Xavier MD PhD - 08/29/2023 [facility], [address] [place], [facility] [id number] [phone] and TRANSESOPHAGEAL ECHOCARDIOGRAM REPORT Patient Name: HARRIETT THAKKAR Fátima Physician: [id number] Guille Cunha MD Study Date: 08/29/2023 Ordering Provider: [id number] VILLEDA MRN/PID: [id number] Fellow: Nurse: Date of /Age: 6 1965 / 58 years [employer] Layout: MACK Gorman RDCS Gender: M Additional Staff: Height: 187.96 cm Admit Date: 08/29/2023 Weight: 145.61 kg Admission Status: Outpatient BSA: 2.66 m2 Department Location: [facility] Blood Pressure: 157 /92 mmHg Study Type: TRANSESOPHAGEAL ECHO (CLEO) Diagnosis/ICD: Unspecified atrial fibrillation-I48.91 Indication: Abnormal EKG CPT Code: CLEO Complete-23967; Doppler Limited-28474; Color Doppler-21055 Patient History: Pertinent History: A-Fib, HTN, Hyperlipidemia, [...] No left atrial thrombus. QUANTITATIVE DATA SUMMARY: [id number] Guille Cunha MD Electronically signed on 08/29/2023 at 9:33:09 AM Final [facility] Work Phone: US Heart TransesophagealOrde red By: Guille Cunha on 08-29-[address] [facility] Work Phone: Basic metabolic 2000 panelon 08-09-2023 Anion gap [Moles/Vol] 14 mmol/L Normal 10-20 [facility] Comment on above: Performed By: #### 2 4321-2 #### TD PERALTA ([id number]) [facility] ([facility]) [address] [place] [address] Calcium [Mass/Vol] 8.6 mg/dL Normal 8.6-10.3 [facility] Comment on above: Performed By: #### 2 4321-2 #### TD PERALTA ([id number]) [facility] ([facility]) [address] [place] [address] Chloride [Moles/Vol] 104 mmol/L Normal 98-107 [facility] [facility] Comment on above: Performed By: #### 2 4321-2 #### TD PERALTA ([id number]) [facility] ([facility]) [address] [place] [address] CO2 [Moles/Vol] 27 mmol/L Normal 21-32 [facility] Comment on above: Performed By: #### 2 4321-2 #### TD PERALTA ([id number]) [facility] ([facility]) [address] [place] [address] Creatinine [Mass/Vol] 1.13 mg/dL Normal 0.50-1.30 [facility] Comment on above: Performed By: #### 2 4321-2 #### TD PERALTA ([id number]) [facility] ([facility]) [address] [place] [address] GFR/1.73 sq M.predicted MDRD (S/P/Bld) [Vol rate/Area] 74 mL/min/1.73m*2 Normal >60 [facility] Comment on above: Result Comment: Calc ulations of estimated GFR are performed using the 2020 CKD-EPI Study Refit equation without the race variable for the IDMS-Traceable creatinine methods. https://jasn.asnjournals.org/content//ASN.0796333 988 Performed By: #### 2 4321-2 #### TD PERALTA ([id number]) [facility] ([facility]) [address] [place] [address] Glucose [Mass/Vol] 186 mg/dL High 74-99 [facility] Comment on above: Performed By: #### 2 4321-2 #### TD PERALTA ([id number]) [facility] ([facility]) [address] [place] [address] Potassium [Moles/Vol] 4.2 mmol/L Normal 3.5-5.3 [facility] Comment on above: Performed By: #### 2 4321-2 #### TD PERALTA (185179) [facility] ([facility]) [address] [place] [address] Sodium [Moles/Vol] 141 mmol/L Normal 136-145 [facility] Comment on above: Performed By: #### 2 4321-2 #### TD PERALTA (536011) [facility] ([facility]) [address] [place] [address] Urea nitrogen [Mass/Vol] 22 mg/dL Normal 6-23 [facility] Comment on above: Performed By: #### 2 4321-2 #### TD PERALTA ([id number]) [facility] ([facility]) [address] [place] [address] CBC panel Auto (Bld)on 08-09 Erythrocyte distribution width (RBC) [Ratio] 14.2 % Normal 11.5-14.5 [facility] Comment on above: Performed By: #### 5 8410-2 #### TD PERALTA (684243) [facility] ([facility]) [address] [place] [address] Hematocrit (Bld) [Volume fraction] 43.9 % Normal 41.0-52.0 [facility] Comment on above: Performed By: #### 5 8410-2 #### TD PERALTA (528968) [facility] ([facility]) [address] [place] [address] Hemoglobin (Bld) [Mass/Vol] 15.2 g/dL Normal 13.5-17.5 [facility] Comment on above: Performed By: #### 5 8410-2 #### TD PERALTA ([id number]) [facility] ([facility]) [address] [place] [address] MCH (RBC) [Entitic mass] 33.6 pg Normal 26.0-34.0 [facility] Comment on above: Performed By: #### 5 8410-2 #### TD PERALTA ([id number]) [facility] ([facility]) [address] [place] [address] MCHC (RBC) [Mass/Vol] 34.6 g/dL Normal 32.0-36.0 [facility] Comment on above: Performed By: #### 5 8410-2 #### TD PERALTA (104846) [facility] ([facility]) [address] [place] [address] MCV (RBC) [Entitic vol] 97 fL Normal 80-100 [facility] Comment on above: Performed By: #### 5 8410-2 #### TD PERALTA ([id number]) [facility] ([facility]) [address] [place] [address] Nucleated RBC/100 WBC (Bld) [Ratio] 0.0 /100 WBCs Normal 0.0-0.0 [facility] Comment on above: Performed By: #### 5 8410-2 #### TD PERALTA ([id number]) [facility] ([facility]) [address] [place] [address] Platelets (Bld) [#/Vol] 178 x10*3/uL Normal 150-450 [facility] Comment on above: Performed By: #### 5 8410-2 #### TD PERALTA ([id number]) [facility] ([facility]) [address] [place] [address] RBC (Bld) [#/Vol] 4.52 x10*6/uL Normal 4.50-5.90 [facility] [facility] Comment on above: Performed By: #### 5 8410-2 #### TD PERALTA (024885) [facility] ([facility]) [address] [place] [address] WBC (Bld) [#/Vol] 6.8 x10*3/uL Normal 4.4-11.3 [facility] Comment on above: Performed By: #### 5 8410-2 #### TD PERALTA ([id number]) [facility] ([facility]) [address] [place] [address] Coagulation tissue factor in ducedon 08-09-2023 PT Coag (PPP) [Time] 22.7 s High 9.8-12.8 [facility] Comment on above: Performed By: #### 5 902-2 #### TD PERALTA ([id number]) [facility] ([facility]) [address] [place] [address] PT Coag (PPP) [Time]on 08-09 INR Coag (PPP) [Relative time] 2.0 High 0.9-1.1 [facility] Comment on above: Performed By: #### 5 902-2 #### TD PERALTA ([id number]) [facility] ([facility]) [address] [place] [address] Prothrombin Time INRon 08-03 INR Coag (PPP) [Relative time] 2.2 {INR} [employer] Other Prothrombin Time INR [facility] [employer] Other ECG 12 Leadon 07-12-2023 ECG revealed atrial fibrillation and anteroseptal myocardial infarction of undetermined age [facility] Work Phone: Prothrombin Time INRon 07-06 INR Coag (PPP) [Relative time] 2.3 {INR} [employer] Other Prothrombin Time INR [employer] Other Coagulation tissue factor in ducedon 06-30-2023 PT Coag (PPP) [Time] 13.3 s High 9.8-12.8 [facility] Comment on above: Performed By: #### 5 902-2 #### TD PERALTA ([id number]) [facility] ([facility]) [address] [place] [address] Glucose Test strip manual (B ld) [Mass/Vol]on 06-30-2023 Glucose [Mass/Vol] 213 mg/dL High 74-[address] [facility] Comment on above: Performed By: #### 2 341-6 #### TD PERALTA ([id number]) [facility] ([facility]) [address] [place] [address] Glucose [Mass/Vol] 213 mg/dL High 74 - 99 mg/dL [facility] Interpretation and review of laboratory results Abnormal [facility] PT Coag (PPP) [Time]on 06-30 INR Coag (PPP) [Relative time] 1.2 High 0.9-1.1 [facility] Comment on above: Performed By: #### 5 902-2 #### TD PERALTA ([id number]) [facility] ([facility]) [address] [place] [address] INR Coag (PPP) [Relative time] 1.2 {INR} High 0.9 - 1.[address] [facility] Interpretation and review of laboratory results Abnormal [facility] Protime-INRon 06-30-2023 PT Coag (PPP) [Time] 13.3 s High [facility] XR CHEST 2 VIEWSon 3 XR CHEST 2 VIEWS Interpreted By: Dunia Leon, STUDY: XR CHEST 2 VIEWS; 06/30/2023 10:11 am INDICATION: Signs/Symptoms:s/p ICD insertion. COMPARISON: None. ACCESSION NUMBER(S): [id number] ORDERING CLINICIAN: LORENE VERNON FINDINGS: ICD is [...] Dunia Leon 06/30/2023 12:03 PM Dictation workstation: [id number] [facility] Comment on above: Order Comment: Wet r ead. Discharge pending film. XR Chest 2 Viewson 3 1. No pneumothorax is noted following ICD placement MACRO: None Signed by: Dunia Leon 06/30/2023 12:03 PM Dictation workstation: [id number] MMODAL Interpreted By: Dunia Leon, STUDY: XR CHEST 2 VIEWS; 06/30/2023 10:11 am INDICATION: Signs/Symptoms:s/p ICD insertion. COMPARISON: None. ACCESSION NUMBER(S): [id number] ORDERING CLINICIAN: LORENE VERNON FINDINGS: ICD is [...] at the base of the cervical spine. [facility] MMODAL Dunia Leon MD - 06/30/2023 Interpreted By: Dunia Leon, STUDY: XR CHEST 2 VIEWS; 06/30/2023 10:11 am INDICATION: Signs/Symptoms:s/p ICD insertion. COMPARISON: None. ACCESSION NUMBER(S): [id number] ORDERING CLINICIAN: LORENE VERNON FINDINGS: ICD is [...] Dunia Leon 06/30/2023 12:03 PM Dictation workstation: [id number] [facility] Work Phone: Radiology Study observation (narrative) [facility] Work Phone: XR Chest 2 ViewsOrdered By: Dunia Leon on 06-30-[address] [facility] Work Phone: ECG 12-LEADon 06-29-2023 ECG 12-LEAD Ventricular Rate 83 Atrial Rate 79 QRS Duration 84 Q-T Interval 386 QTC Calculation(Bazett) 453 R [place] 26 T [place] 45 QRS Count 13 Q Onset 217 T Offset 410 QTC Fredericia 430 Diagnosis Atrial fibrillation Low voltage QRS Cannot rule out Anteroseptal infarct , age undetermined Abnormal ECG Confirmed by Brice Young (13) on 07/04/2023 4:22:27 PM Normal [facility] ECG 12-LEAD Ventricular Rate 95 Atrial Rate 394 QRS Duration 84 Q-T Interval 362 QTC Calculation(Bazett) 454 R [place] -8 T [place] 5 QRS Count 16 Q Onset 216 T Offset 397 QTC Fredericia 421 Diagnosis Atrial fibrillation Low voltage QRS Cannot rule out Anteroseptal infarct , age undetermined Abnormal ECG Confirmed by Brice Young (13) on 07/08/2023 5:25:44 PM Normal [facility] Glucose Test strip manual (B ld) [Mass/Vol]on 06-29-2023 Glucose [Mass/Vol] 205 mg/dL High 74-[address] [facility] Comment on above: Performed By: #### 2 341-6 #### TD PERALTA ([id number]) [facility] ([facility]) [address] [place] [address] Glucose [Mass/Vol] 205 mg/dL High 74 - 99 mg/dL [facility] Interpretation and review of laboratory results Abnormal [facility] Glucose [Mass/Vol] 140 mg/dL High 74-[address] [facility] Comment on above: Performed By: #### 2 341-6 #### TD PERALTA ([id number]) [facility] ([facility]) [address] [place] [address] Glucose [Mass/Vol] 140 mg/dL High 74 - 99 mg/dL [facility] Interpretation and review of laboratory results Abnormal [facility] PT and aPTT panel Coag (PPP) on 06-29-2023 aPTT Coag (PPP) [Time] 26 s Low 27-38 [facility] Comment on above: Order Comment: The A PTT is no longer used for monitoring Unfractionated Heparin Therapy. For monitoring Heparin Therapy, use the Heparin Assay. Performed By: #### 3 4529-8 #### TD PERALTA ([id number]) [facility] ([facility]) [address] [place] [address] INR Coag (PPP) [Relative time] 1.1 Normal 0.9-1.1 [facility] Comment on above: Order Comment: The A PTT is no longer used for monitoring Unfractionated Heparin Therapy. For monitoring Heparin Therapy, use the Heparin Assay. Performed By: #### 3 4529-8 #### TD PERALTA ([id number]) [facility] ([facility]) [address] [place] [address] PT Coag (PPP) [Time] 12.6 s Normal 9.8-12.8 [facility] Comment on above: Order Comment: The A PTT is no longer used for monitoring Unfractionated Heparin Therapy. For monitoring Heparin Therapy, use the Heparin Assay. Performed By: #### 3 4529-8 #### TD PERALTA ([id number]) [facility] ([facility]) [address] [place] [address] aPTT Coag (PPP) [Time] 26 s Low [facility] INR Coag (PPP) [Relative time] 1.1 {INR} 0.9 - 1.[address] [facility] Interpretation and review of laboratory results Abnormal [facility] PT Coag (PPP) [Time] 12.6 s [facility] The APTT is no longer used for monitoring Unfractionated Heparin Therapy. For monitoring Heparin Therapy, use the Heparin Assay. [facility] BASIC METABOLIC PANELon 05-20 Anion gap [Moles/Vol] 11 mmol/L Normal 10 - 20 [facility] Comment on above: Performed By: #### B MP #### [address] [id number] Calcium [Mass/Vol] 9.1 mg/dL Normal 8.6 - 10.3 [facility] [place] Comment on above: Performed By: #### B MP #### [address] [id number] Chloride [Moles/Vol] 102 mmol/L Normal 98 - 107 [facility] Comment on above: Performed By: #### B MP #### [address] [id number] Creatinine [Mass/Vol] 1.03 mg/dL Normal 0.50 - 1.30 [facility] Comment on above: Performed By: #### B MP #### [address] [id number] GFR/1.73 sq M.predicted among non-blacks MDRD (S/P/Bld) [Vol rate/Area] 83 mL/min/{1.73_m2} Normal >90 [facility] Comment on above: Result Comment: CALC ULATIONS OF ESTIMATED GFR ARE PERFORMED USING THE 2020 CKD-EPI STUDY REFIT EQUATION WITHOUT THE RACE VARIABLE FOR THE IDMS-TRACEABLE CREATININE METHODS. https://jasn.asnjournals.org/content//ASN.4998874 988 Performed By: #### B MP #### [address] [id number] Glucose [Mass/Vol] 97 mg/dL Normal 74 - 99 [facility] [place] Comment on above: Performed By: #### B MP #### [address] [id number] HCO3 (Bld) [Moles/Vol] 32 mmol/L Normal 21 - 32 [facility] Comment on above: Performed By: #### B MP #### [address] [id number] Potassium [Moles/Vol] 3.8 mmol/L Normal 3.5 - 5.3 [facility] Comment on above: Performed By: #### B MP #### [address] [id number] Sodium [Moles/Vol] 141 mmol/L Normal 136 - 145 [facility] [place] Comment on above: Performed By: #### B MP #### [address] [id number] Urea nitrogen [Mass/Vol] 16 mg/dL Normal 6 - 23 [facility] Comment on above: Performed By: #### B MP #### [address] [id number] CBCon 06-07-2023 Erythrocyte distribution width (RBC) [Ratio] 13.9 % Normal 11.5 - 14.5 [facility] Comment on above: Performed By: #### C BC #### [address] [id number] Hematocrit (Bld) [Volume fraction] 44.5 % Normal 41.0 - 52.0 [facility] Comment on above: Performed By: #### C BC #### [address] [id number] Hemoglobin (Bld) [Mass/Vol] 15.1 g/dL Normal 13.5 - 17.5 [facility] Comment on above: Performed By: #### C BC #### [address] [id number] MCHC (RBC) [Mass/Vol] 33.9 g/dL Normal 32.0 - 36.0 [facility] Comment on above: Performed By: #### C BC #### [address] [id number] MCV (RBC) [Entitic vol] 95 fL Normal 80 - 100 [facility] Comment on above: Performed By: #### C BC #### [address] [id number] Platelets (Bld) [#/Vol] 184 10*3/uL Normal 150 - 450 [facility] Comment on above: Performed By: #### C BC #### [address] [id number] RBC 4.68 x10E12/L Normal 4.50 - 5.90 [facility] Comment on above: Performed By: #### C BC #### [address] [id number] WBC (Bld) [#/Vol] 8.1 10*3/uL Normal 4.4 - 11.3 [facility] [place] Comment on above: Performed By: #### C BC #### [address] [id number] PT/INRon 06-07-2023 PT Coag (PPP) [Time] 33.5 s High 9.8 - 12.8 [facility] Comment on above: Result Comment: Note new reference range as of 03/08/2023 at 10:00am. Performed By: #### P TINR #### [address] [id number] PT, INR 2.9 High 0.9 - 1.1 [facility] Comment on above: Performed By: #### P TINR #### [address] [id number] Prothrombin Time INRon 06-06 INR Coag (PPP) [Relative time] 2.3 {INR} [employer] Other Prothrombin Time INR Nort [employer] Other Prothrombin Time INRon 05-25 INR Coag (PPP) [Relative time] 2.4 {INR} [employer] Other Prothrombin Time INR [employer] Other Office Visit (Cardiology)on 05-24-2023 Follow-up visit Diagnoses/Problems Assessed Ventricular tachycardia, nonsustained (427.1) (I47.29) Paroxysmal atrial fibrillation (427.31) (I48.0) Hyperlipidemia (272.4) (E78.5) Diabetes mellitus (250.00) (E11.9) Essential hypertension (401.9) (I10) Ischemic cardiomyopathy (414.8) (I25.5) Pulmonary embolus (415.19) (I26.99) Coronary artery disease involving iqugmiut coronary artery of iqugmiut heart without angina pectoris (414.01) (I25.10) Class 2 obesity with body mass index (BMI) of 37.0 to 37.9 in adult (278.00,V85.37) (E66.9,Z68.37) Orders Class 2 obesity with body mass index (BMI) of 37.0 to 37.9 in adult Basic Metabolic Panel; Status:Active; Requested for:[id number]; Complete Blood Count; Status:Active; Requested for:[id number]; IO EKG Electrocardiogram- 12 Lead; Status:Complete; Done: [id number] PT/INR; Status:Active; Requested for:[id number]; Chief Complaint HARRIETT THAKKAR is being seen for a consultation for atrial fibrillation and ICD eval. Active Problems Problems Abnormal EKG (794.31) (R94.31) Anticoagulated (V58.61) (Z79.01) Chest pain (786.50) (R07.9) Class 2 obesity with body mass index (BMI) of 37.0 to 37.9 in adult (278.00,V85.37) (E66.9,Z68.37) Coronary artery disease involving iqugmiut coronary artery of iqugmiut heart without angina pectoris (414.01) (I25.10) Diabetes mellitus (250.00) (E11.9) Essential hypertension (401.9) (I10) High risk medication use (V58.69) (Z79.899) History of PR (myocardial infarction) (412) (I25.2) History of PTCA (V45.82) (Z98.61) Hyperlipidemia (272.4) (E78.5) Ischemic cardiomyopathy (414.8) (I25.5) Never a smoker Orthostatic hypotension (458.0) (I95.1) Paroxysmal atrial fibrillation (427.31) (I48.0) Pulmonary embolus (415.19) (I26.99) Sleep apnea (780.57) (G47.30) Syncope, near (780.2) (R55) Ventricular tachycardia, nonsustained (427.1) (I47.29) Surgical History Problems History of Cardiac catheterization with stent placement History of Colonoscopy [id number] History of Neck surgery disectomy History of [...] 5 MG Oral TabletTake as directed by [facility] coumadin clinic Allergies Medication PAULETTE Inhibitors Hypotension;; [...] consumption Vitals Vital Signs Recorded: 24May2023 02:10PMRecorded: 24May2023 02:04PM Heart Smrn442 Kjjtzneu137, LUE, Sitting Wsyuwhwwt39, LUE, Sitting Height6 ft 3 in Oqttti623 lb BMI Oophkbkqwf54.62 kg/m2 BSA Calculated2.64 O2 Pnxguxmopn34 Physical Exam Constitutional: Well developed, awake/alert/oriented x3, no distress Head/Neck: Neck supple, No JVD, no bruits Respiratory: Patent airways, CTAB, normal breath sounds with good chest expansion Cardiovascular: Regular, rate and rhythm, no murmurs, normal S1 and S2 Extremities: normal extremities, no cyanosis edema Neurological: alert and oriented x3 Scores and Scales [id number] 1. Heart Failure or EF less than or equal to 35%? Yes (1 pt) 2. Hypertension? Yes (1 pt) 3. Age? Less than 65 (0 pt) 4. Diabetes? Yes (1 pt) 5. Stroke, TIA, or Systemic Emboli? No (0 pt) 6. Vascular Disease? Yes (1 pt) 7. Gender? Male (0 pt) Total Risk Score: The NGC4QH5-TDOy Score is 4 which corresponds to High Risk. Impressions 58-year-old man with history of sleep apnea (intolerant of CPAP), morbid obesity, HTN, diabetes, hyperlipidemia, CAD s/p PCI x2 (LAD 2020 repeat PCI later in 2020 ISR), h/o PE (>5 years ago), paroxysmal atrial fibrillation b (more content not included)... [facility] Prothrombin Time INRon 05-12 INR Coag (PPP) [Relative time] 3.6 {INR} [facility] [employer] Other Prothrombin Time INR Nort [facility] [employer] Other [facility] CARDIAC STRESS/REST INJE CTIONon 05-02-2023 [facility] CARDIAC STRESS/REST INJECTION Patient Name: HARRIETT THAKKAR STUDY: MYOCARDIAL PERFUSION STRESS TEST WITH LEXISCAN Performing facility: [facility], [address] [place] [address], [address], [place] [address] [facility] Provider: Angel Griggs MD, [facility] PCP: Dr. Molly Garcia Supervising provider: Dallas Em MD INDICATION: Chest Pain; CAD; Diabetes HTN Hyperlipidemia Ischemic cardiomyopathy HISTORY: Gender: M; Age: 58 y/o ; Height: 187.96 cm; Weight: 582.7047128 kg. CAD; High Cholesterol; Diabetes; Previous PR; HTN; Arrhythmias; Chest Pain; Denies smoking. Cardiac catheterization on 2019. PTCA on 2019. COMPARISON: Previous nuclear testing completed at [facility]. ACCESSION NUMBER(S): [id number]; [id number]; [id number] ORDERING CLINICIAN: ANGEL GRIGGS TECHNIQUE: TWO DAY [...] Electronically signed by: ANGEL GRIGGS MD Normal [facility] Prothrombin Time INRon 05-02 INR Coag (PPP) [Relative time] 3.7 {INR} [facility] [employer] Other Prothrombin Time INR Normal Nort [facility] [employer] Other A1C with Estimated Average G willien 04-04-2023 Glucose [Mass/Vol] 169 mg/dL Normal [facility] Comment on above: Order Comment: Comme nt add on please Result Comment: PERF ORMED BY: [facility] [address] [place] [address] PATHOLOGIST PUMP SERVICER MELANI GUTIÉRREZ M.D. Performed By: #### A 1C [facility] eA ####[id number] [place] [address] [facility] HbA1c (Bld) [Mass fraction] 7.5 % High 4.3-5.6 [facility] Comment on above: Order Comment: Comme nt add on please Result Comment: Incr eased risk for diabetes: 5.7 - 6.4 diabetes: >6.4 glycemic control for adults with diabetes: <7.0 Performed By: #### A 1C [facility] eA ####[address] [address] [facility] Alanine aminotransferase [En zymatic activity/volume] in Serum or PlasmaOrdered By: Toy Yeager on 04-04-2023 ALT [Catalytic activity/Vol] 26 U/L 7-52 [facility] Albumin [Mass/volume] in Ser um or Plasma by Bromocresol green (BCG) dye binding methoOrdered By: Toy Yeager on 04-04-2023 Albumin BCG dye [Mass/Vol] 3.7 g/dL 3.5-5.7 [facility] Alkaline phosphatase [Enzyma tic activity/volume] in Serum or PlasmaOrdered By: Toy Yeager on 04-04-2023 ALP [Catalytic activity/Vol] 72 U/L 34-104 [facility] Aspartate aminotransferase [ Enzymatic activity/volume] in Serum or PlasmaOrdered By: Toy Herediamood on 04-04-2023 AST [Catalytic activity/Vol] 21 U/L 13-39 [facility] Basophils Auto (Bld) [#/Vol] Ordered By: Toy Toy on 04-04-2023 Basophils (Bld) [#/Vol] 0.0 10*3/uL 0.0-0.2 [facility] Basophils/100 WBC Auto (Bld) Ordered By: Toy Toy on 04-04-2023 Basophils/100 WBC (Bld) 0.7 % . [facility] Bilirubin.total [Mass/volume ] in Serum or PlasmaOrdered By: Toy Toy on 04-04-2023 Bilirubin [Mass/Vol] 0.7 mg/dL 0.3-1.0 [facility] Calcium [Mass/volume] in Ser um or PlasmaOrdered By: Toy Toy on 04-04-2023 Calcium [Mass/Vol] 7.8 mg/dL 8.6-10.3 [facility] Carbon dioxide, total [Moles /volume] in Serum or PlasmaOrdered By: Toy Toy on 04-04-2023 CO2 [Moles/Vol] 31.7 mmol/L 21.0-31.0 [facility] Chloride [Moles/volume] in S suad or PlasmaOrdered By: Toy Toy on 04-04-2023 Chloride [Moles/Vol] 102 mmol/L 98-107 [facility] Complete Blood Count Auto Di ffon 04-04-2023 Basophils (Bld) [#/Vol] 0.0 10*3/uL Normal 0.0-0.2 [facility] Comment on above: Result Comment: PERF ORMED BY: [facility] [address] [place] [address] PATHOLOGIST PUMP SERVICER MELANI GUTIÉRREZ M.D. Performed By: #### G LULS #### Point of Care testing , Basophils/100 WBC (Bld) 0.7 % Normal . [facility] Comment on above: Performed By: #### G LULS #### Point of Care testing , Eosinophils (Bld) [#/Vol] 0.2 10*3/uL Normal 0.0-0.45 [facility] Comment on above: Performed By: #### G LULS #### Point of Care testing , Eosinophils/100 WBC (Bld) 3.1 % Normal . [facility] Comment on above: Performed By: #### G LULS #### Point of Care testing , Erythrocyte distribution width (RBC) [Ratio] 14.2 % Normal 12.0-14.8 [facility] Comment on above: Performed By: #### G LULS #### Point of Care testing , Hematocrit (Bld) [Volume fraction] 41.1 % Normal 38.8-50.0 [facility] Comment on above: Performed By: #### G LULS #### Point of Care testing , Hemoglobin (Bld) [Mass/Vol] 14.4 g/dL Normal 13.0-17.0 [facility] Comment on above: Performed By: #### G LULS #### Point of Care testing , Lymphocytes (Bld) [#/Vol] 1.3 10*3/uL Normal 1.00-4.8 [facility] Comment on above: Performed By: #### G LULS #### Point of Care testing , Lymphocytes/100 WBC (Bld) 20.2 % Normal . [facility] Comment on above: Performed By: #### G LULS #### Point of Care testing , MCH (RBC) [Entitic mass] 31.8 pg Normal 27.5-35.2 [facility] Comment on above: Performed By: #### G LULS #### Point of Care testing , MCV (RBC) [Entitic vol] 90.9 fL Normal 83.5-101 [facility] Comment on above: Performed By: #### G LULS #### Point of Care testing , Mean Corpuscular HGB Conc 35.0 g/dL Normal 32.5-35.6 [facility] Comment on above: Performed By: #### G LULS #### Point of Care testing , Monocytes (Bld) [#/Vol] 0.6 10*3/uL Normal 0.0-0.8 [facility] Comment on above: Performed By: #### G LULS #### Point of Care testing , Monocytes/100 WBC (Bld) 9.8 % Normal . [facility] Comment on above: Performed By: #### G LULS #### Point of Care testing , Neutrophils (Bld) [#/Vol] 4.1 10*3/uL Normal 1.8-7.7 [facility] Comment on above: Performed By: #### G LULS #### Point of Care testing , Neutrophils/100 WBC (Bld) 66.2 % Normal . [facility] Comment on above: Performed By: #### G LULS #### Point of Care testing , NRBC% 0.1 /100{WBC} Normal 0-0.5 [facility] Comment on above: Performed By: #### G LULS #### Point of Care testing , Platelet mean volume (Bld) [Entitic vol] 9.5 fL Normal 6.6-10.1 [facility] Comment on above: Performed By: #### G LULS #### Point of Care testing , Platelets (Bld) [#/Vol] 129 10*3/uL Low 150-450 [facility] Comment on above: Performed By: #### G LULS #### Point of Care testing , RBC (Bld) [#/Vol] 4.52 10*6/uL Normal 3.90-5.60 [facility] Comment on above: Performed By: #### G LULS #### Point of Care testing , WBC (Bld) [#/Vol] 6.2 10*3/uL Normal 4.1-10.5 [facility] Comment on above: Performed By: #### G LULS #### Point of Care testing , Comprehensive Metabolic Pane lindy 04-04-2023 Albumin [Mass/Vol] 3.7 g/dL Normal 3.5-5.7 [facility] Comment on above: Performed By: #### C MP ####[facility] [place] [id number] [facility] Albumin/Globulin [Mass ratio] 1.6 {ratio} Normal [facility] Comment on above: Performed By: #### C MP ####[place] [id number] [facility] ALP [Catalytic activity/Vol] 72 U/L Normal 34-104 [facility] Comment on above: Performed By: #### C MP ####[address] ALT [Catalytic activity/Vol] 26 U/L Normal 7-52 [facility] Comment on above: Performed By: #### C MP ####[address] Anion gap [Moles/Vol] 8.9 mmol/L Normal 6.0-15.0 [facility] Comment on above: Performed By: #### C MP ####[address] AST [Catalytic activity/Vol] 21 U/L Normal 13-39 [facility] Comment on above: Performed By: #### C MP ####[address] Bilirubin [Mass/Vol] 0.7 mg/dL Normal 0.3-1.0 [facility] Comment on above: Performed By: #### C MP ####[address] Calcium [Mass/Vol] 7.8 mg/dL Low 8.6-10.3 [facility] Comment on above: Performed By: #### C MP ####[place] [id number] [facility] Chloride [Moles/Vol] 102 mmol/L Normal 98-107 [facility] Comment on above: Performed By: #### C MP ####[address] CO2 [Moles/Vol] 31.7 mmol/L High 21.0-31.0 [facility] Comment on above: Performed By: #### C MP ####[id number] [facility] Creatinine [Mass/Vol] 1.05 mg/dL Normal 0.70-1.30 [facility] Comment on above: Performed By: #### C MP ####[id number] [facility] Creatinine Clr Calc Pharmacy 107.85 Normal [facility] Comment on above: Result Comment: PERF ORMED BY: [facility] [address] [place] [id number] PATHOLOGIST PUMP SERVICER MELANI GUTIÉRREZ M.D. Performed By: #### C MP ####[address] GFR/1.73 sq M.predicted MDRD (S/P/Bld) [Vol rate/Area] mL/min/{1.73_m2} Normal [facility] Comment on above: Performed By: #### C MP ####[id number] [facility] Globulin (S) [Mass/Vol] 2.3 g/dL Normal [facility] Comment on above: Performed By: #### C MP ####[address] Glucose [Mass/Vol] 161 mg/dL High 70-100 [facility] Comment on above: Result Comment: [facility] Glucose Reference Range is dependent on time and content of last meal. Glucose of more than 200 mg/dL in a nonstressed, ambulatory subject supports the diagnosis of Diabetes Mellitus. ADA recommended reference range Performed By: #### C MP ####[address] Potassium [Moles/Vol] 3.6 mmol/L Normal 3.5-5.1 [facility] Comment on above: Performed By: #### C MP ####[id number] [facility] Protein [Mass/Vol] 6.0 g/dL Low 6.4-8.9 [facility] Comment on above: Performed By: #### C MP ####[address] Sodium [Moles/Vol] 139 mmol/L Normal 136-145 [facility] Comment on above: Performed By: #### C MP ####[facility] [place] [address] [facility] Urea nitrogen [Mass/Vol] 23 mg/dL Normal 7-25 [facility] Comment on above: Performed By: #### C MP ####[facility] [place] [address] [facility] Creatinine [Mass/volume] in Serum or PlasmaOrdered By: Toy Yeager on 04-04-2023 Creatinine [Mass/Vol] 1.05 mg/dL 0.70-1.30 [facility] ECH echo transthoracicon [facility] echo transthoracic [facility] [place] [address] Echocardiogram Signed Patient: Harriett Thakkar MR#: [id number] 285 : 1965 Acct:[id number] Age/Sex: 58 / M ADM Date: 04/02/23 Loc: Room: [address] [place] [address] Type: ADM INOo Attending Dr: Derrek Tay DO Ordering Provider: Toy Yeager MD Date of Service: 04/03/23 [facility] echo transthoracic: Chest pain r/o Hypokinesis Copies to: Angel Griggs MD, [facility] Toy Yeager MD Weight: 290 [...] 04/04/23 1318 Signed By: Angel Griggs MD, [facility] 04/04/23 0182 Normal [facility] Eosinophils Auto (Bld) [#/Vo l]Ordered By: Toy Yeager on 04-04-2023 Eosinophils (Bld) [#/Vol] 0.2 10*3/uL 0.0-0.45 [facility] Eosinophils/100 WBC Auto (Bl d)Ordered By: Toy Yeager on 04-04-2023 Eosinophils/100 WBC (Bld) 3.1 % . [facility] Erythrocyte distribution wid th Auto (RBC) [Ratio]Ordered By: Toy Yeager on 04-04-2023 Erythrocyte distribution width (RBC) [Ratio] 14.2 % 12.0-14.8 [facility] Globulin Calc (S) [Mass/Vol] Ordered By: Toy Yeager on 04-04-2023 Globulin (S) [Mass/Vol] 2.3 g/dL [facility] Glucose Glucometer (BldC) [M ass/Vol]Ordered By: Toy Yeager on 04-04-2023 Glucose [Mass/Vol] 146 mg/dL [facility] Comment on above: Random Glucose Refer ence Range is dependent on time and content of last meal. Glucose of more than 200 mg/dL in a nonstressed, ambulatory subject supports the diagnosis of Diabetes Mellitus. Glucose Poct Glucometerson 0 04-04-2023 Glucose [Mass/Vol] 146 mg/dL Normal [facility] Comment on above: Result Comment: [place] [facility] Glucose Reference Range is dependent on time and content of last meal. Glucose of more than 200 mg/dL in a nonstressed, ambulatory subject supports the diagnosis of Diabetes Mellitus. PERFORMED BY: [facility] [address] [place] [address] PATHOLOGIST PUMP SERVICER MELANI GUTIÉRREZ M.D. Performed By: #### G LULS #### Point of Care testing , Glucose [Mass/volume] in Ser um or PlasmaOrdered By: Toy Yeager on 04-04-2023 Glucose [Mass/Vol] 161 mg/dL 70-100 [facility] Comment on above: ADA recommended refe [...] from glycated hemoglobin (Bld) [Mass/Vol] 169 mg/dL [facility] Hematocrit Auto (Bld) [Volum e fraction]Ordered By: Toy Yeager on 04-04-2023 Hematocrit (Bld) [Volume fraction] 41.1 % 38.8-50.0 [facility] Hemoglobin A1c percentageOrd ered By: Derrek Tay on 04-04-2023 HbA1c (Bld) [Mass fraction] 7.5 % 4.3-5.6 [facility] Comment on above: Increased risk for d iabetes: 5.7 - 6.4diabetes: >6.4glycemic control for adults with diabetes: <7.0 Hemoglobin [Mass/volume] in BloodOrdered By: Toy Yeager on 04-04-2023 Hemoglobin (Bld) [Mass/Vol] 14.4 g/dL 13.0-17.0 [facility] Laboratory - CoagulationOrde red By: Toy Yeager on 04-04-2023 PT Coag (PPP) [Time] 39.6 s 9.0-12.9 [facility] Leukocytes [#/volume] correc kaylee for nucleated erythrocytes in Blood by Automated counOrdered By: Toy Yeager on 04-04-2023 WBC corrected for nucl RBC Auto (Bld) [#/Vol] 6.2 10*3/uL 4.1-10.5 [facility] Lymphocytes Auto (Bld) [#/Vo l]Ordered By: Toy Yeager on 04-04-2023 Lymphocytes (Bld) [#/Vol] 1.3 10*3/uL 1.00-4.8 [facility] Lymphocytes/100 WBC Auto (Bl d)Ordered By: Toy Yeager on 04-04-2023 Lymphocytes/100 WBC (Bld) 20.2 % . [facility] MCH Auto (RBC) [Entitic mass ]Ordered By: Toy Yeager on 04-04-2023 MCH (RBC) [Entitic mass] 31.8 pg 27.5-35.2 [facility] MCHC Auto (RBC) [Mass/Vol]Or dered By: Toy Yeager on 04-04-2023 MCHC (RBC) [Mass/Vol] 35.0 g/dL 32.5-35.6 [facility] MCV Auto (RBC) [Entitic vol] Ordered By: Toy Yeager on 04-04-2023 MCV (RBC) [Entitic vol] 90.9 fL 83.5-101 [facility] Monocytes Auto (Bld) [#/Vol] Ordered By: Toy Yeager on 04-04-2023 Monocytes (Bld) [#/Vol] 0.6 10*3/uL 0.0-0.8 [facility] Monocytes/100 WBC Auto (Bld) Ordered By: Toy Yeager on 04-04-2023 Monocytes/100 WBC (Bld) 9.8 % . [facility] Neutrophils Auto (Bld) [#/Vo l]Ordered By: Toy Yeager on 04-04-2023 Neutrophils (Bld) [#/Vol] 4.1 10*3/uL 1.8-7.7 [facility] Neutrophils/100 WBC Auto (Bl d)Ordered By: Toy Yeager on 04-04-2023 Neutrophils/100 WBC (Bld) 66.2 % . [facility] No Panel InformationOrdered By: Toy Yeager on 04-04-2023 Estimated GFR (CKD-EPI) > 60.0 mL/Min [facility] Creatinine Clearance (Chem 107.85 [facility] Nucleated erythrocytes [Pres ence] in Blood by Automated countOrdered By: Toy Yeager on 04-04-2023 Nucleated RBC Auto Ql (Bld) 0.1 /100{WBC} 0-0.5 [facility] Platelet mean volume Auto (B ld) [Entitic vol]Ordered By: Toy Yeager on 04-04-2023 Platelet mean volume (Bld) [Entitic vol] 9.5 fL 6.6-10.1 [facility] Platelet poor plasma interna tional normalized ratio (INR) by coagulation assay (relatOrdered By: Toy Yeager on 04-04-2023 INR Coag (PPP) [Relative time] 3.5 {INR} [facility] Comment on above: INR Therapeutic Rang [...] 04-04-2023 Platelets (Bld) [#/Vol] 129 10*3/uL 150-450 [facility] Potassium [Moles/volume] in Serum or PlasmaOrdered By: Toy Yeager on 04-04-2023 Potassium [Moles/Vol] 3.6 mmol/L 3.5-5.1 [facility] Protein [Mass/volume] in Ser um or PlasmaOrdered By: Toy Yeager on 04-04-2023 Protein [Mass/Vol] 6.0 g/dL 6.4-8.9 [facility] Prothrombin Time INRon 04-04 INR Coag (PPP) [Relative time] 3.5 {INR} Normal [facility] Comment on above: Result Comment: INR Therapeutic [...] heart valves: 3 - 4.5 PERFORMED BY: [address] [place] [address] PATHOLOGIST PUMP SERVICER MELANI GUTIÉRREZ M.D. Performed By: #### G LULS #### Point of Care testing , PT Coag (PPP) [Time] 39.6 s High 9.0-12.9 [facility] Comment on above: Performed By: #### G LULS #### Point of Care testing , RBC Auto (Bld) [#/Vol]Ordere d By: Toy Yeager on 04-04-2023 RBC (Bld) [#/Vol] 4.52 10*6/uL 3.90-5.60 [facility] Serum or plasma albumin/glob ulin mass ratioOrdered By: Toy Yeager on 04-04-2023 Albumin/Globulin [Mass ratio] 1.6 {ratio} [facility] Serum or plasma anion gap de terminationOrdered By: Toy Yeager on 04-04-2023 Anion gap [Moles/Vol] 8.9 mmol/L 6.0-15.0 [facility] Sodium [Moles/volume] in Ser um or PlasmaOrdered By: Toy Yeager on 04-04-2023 Sodium [Moles/Vol] 139 mmol/L 136-145 [facility] US carotid doppler BIon 07- US carotid doppler BI [facility] [place] [address] Ultrasound Report Signed Patient: Harriett Thakkar MR#: [id number] 285 : 1965 Acct:[id number] Age/Sex: 58 / M ADM Date: 04/02/23 Loc: Room: [address] [place] [address] Type: ADM INOo Attending Dr: Derrek Tay [...] Michele Dennis M.D.04/04/2023 4:04 PM Dictation Location: [place] [address] Tech: Bhakti Kay Transcribed By: HEATHER 04/04/23 160 Dictated By: Michele Dennis MD 04/04/231603 Signed By: 04/04/23 1604 Normal [facility] Urea nitrogen [Mass/volume] in Serum or PlasmaOrdered By: Toy Yeager on 04-04-2023 Urea nitrogen [Mass/Vol] 23 mg/dL 7-25 [facility] WBC Auto (Bld) [#/Vol]Ordere d By: Toy Yeager on 04-04-2023 WBC (Bld) [#/Vol] 6.2 10*3/uL 4.1-10.5 [facility] Cholesterol [Mass/volume] in Serum or PlasmaOrdered By: Toy Yeager on 04-03-2023 Cholesterol [Mass/Vol] 69 mg/dL 140-200 [facility] Comment on above: Chol less than 200 m g/dl low riskChol 201-239 mg/dl borderline riskChol 240 mg/dl and greater high risk Cholesterol in LDL Calc [Mas s/Vol]Ordered By: Toy Yeager on 04-03-2023 Cholesterol in LDL [Mass/Vol] 17 mg/dL 0-100 [facility] Comment on above: LDL ATP III CLASSIFI CATIONLDL less than 100 mg/dL OptimalLDL 100-129 mg/dL Near or above optimalLDL 130-159 mg/dL Borderline highLDL 160-189 mg/dL HighLDL greater than 189 mg/dL Very high Cholesterol in VLDL Calc [Ma ss/Vol]Ordered By: Toy Yeager on 04-03-2023 Cholesterol in VLDL [Mass/Vol] 36 mg/dL [facility] Complete Blood Count Auto Di ffon 04-03-2023 Basophils (Bld) [#/Vol] 0.1 10*3/uL Normal 0.0-0.2 [facility] Comment on above: Result Comment: PERF ORMED BY: [facility] [address] [facility] [place] [address] PATHOLOGIST PUMP SERVICER MELANI GUTIÉRREZ M.D. Performed By: #### L IPID, PT, CMP, CBC ####[address] Basophils/100 WBC (Bld) 1.0 % Normal . [facility] Comment on above: Performed By: #### L IPID, PT, CMP, CBC ####[address] Eosinophils (Bld) [#/Vol] 0.2 10*3/uL Normal 0.0-0.45 [facility] Comment on above: Performed By: #### L IPID, PT, CMP, CBC ####[address] Eosinophils/100 WBC (Bld) 3.5 % Normal . [facility] Comment on above: Performed By: #### L IPID, PT, CMP, CBC ####[address] Erythrocyte distribution width (RBC) [Ratio] 14.5 % Normal 12.0-14.8 [facility] Comment on above: Performed By: #### L IPID, PT, CMP, CBC ####[address] Hematocrit (Bld) [Volume fraction] 39.0 % Normal 38.8-50.0 [facility] Comment on above: Performed By: #### L IPID, PT, CMP, CBC ####[address] Hemoglobin (Bld) [Mass/Vol] 13.8 g/dL Normal 13.0-17.0 [facility] Comment on above: Performed By: #### L IPID, PT, CMP, CBC ####[address] Lymphocytes (Bld) [#/Vol] 1.6 10*3/uL Normal 1.00-4.8 [facility] Comment on above: Performed By: #### L IPID, PT, CMP, CBC ####[address] Lymphocytes/100 WBC (Bld) 23.7 % Normal . [facility] Comment on above: Performed By: #### L IPID, PT, CMP, CBC ####[address] MCH (RBC) [Entitic mass] 31.8 pg Normal 27.5-35.2 [facility] Comment on above: Performed By: #### L IPID, PT, CMP, CBC ####[address] MCV (RBC) [Entitic vol] 90.0 fL Normal 83.5-101 [facility] Comment on above: Performed By: #### L IPID, PT, CMP, CBC ####[address] Mean Corpuscular HGB Conc 35.4 g/dL Normal 32.5-35.6 [facility] Comment on above: Performed By: #### L IPID, PT, CMP, CBC ####[address] Monocytes (Bld) [#/Vol] 0.7 10*3/uL Normal 0.0-0.8 [facility] Comment on above: Performed By: #### L IPID, PT, CMP, CBC ####[address] Monocytes/100 WBC (Bld) 9.9 % Normal . [facility] Comment on above: Performed By: #### L IPID, PT, CMP, CBC ####[address] Neutrophils (Bld) [#/Vol] 4.3 10*3/uL Normal 1.8-7.7 [facility] Comment on above: Performed By: #### L IPID, PT, CMP, CBC ####[address] Neutrophils/100 WBC (Bld) 61.9 % Normal . [facility] Comment on above: Performed By: #### L IPID, PT, CMP, CBC ####[address] NRBC% 0.2 /100{WBC} Normal 0-0.5 [facility] Comment on above: Performed By: #### L IPID, PT, CMP, CBC ####[address] Platelet mean volume (Bld) [Entitic vol] 9.6 fL Normal 6.6-10.1 [facility] Comment on above: Performed By: #### L IPID, PT, CMP, CBC ####[address] Platelets (Bld) [#/Vol] 132 10*3/uL Low 150-450 [facility] Comment on above: Performed By: #### L IPID, PT, CMP, CBC ####[address] RBC (Bld) [#/Vol] 4.34 10*6/uL Normal 3.90-5.60 [facility] Comment on above: Performed By: #### L IPID, PT, CMP, CBC ####[address] WBC (Bld) [#/Vol] 6.9 10*3/uL Normal 4.1-10.5 [facility] Comment on above: Performed By: #### L IPID, PT, CMP, CBC ####[address] Comprehensive Metabolic Pane lindy 04-03-2023 Albumin [Mass/Vol] 3.6 g/dL Normal 3.5-5.7 [facility] Comment on above: Performed By: #### L IPID, PT, CMP, CBC ####[address] Albumin/Globulin [Mass ratio] 1.6 {ratio} Normal [facility] Comment on above: Performed By: #### L IPID, PT, CMP, CBC ####[address] ALP [Catalytic activity/Vol] 73 U/L Normal 34-104 [facility] Comment on above: Performed By: #### L IPID, PT, CMP, CBC ####[address] ALT [Catalytic activity/Vol] 24 U/L Normal 7-52 [facility] Comment on above: Performed By: #### L IPID, PT, CMP, CBC ####[address] Anion gap [Moles/Vol] 10.9 mmol/L Normal 6.0-15.0 [facility] Comment on above: Performed By: #### L IPID, PT, CMP, CBC ####[address] AST [Catalytic activity/Vol] 23 U/L Normal 13-39 [facility] Comment on above: Performed By: #### L IPID, PT, CMP, CBC ####[address] Bilirubin [Mass/Vol] 0.7 mg/dL Normal 0.3-1.0 [facility] Comment on above: Performed By: #### L IPID, PT, CMP, CBC ####[address] Calcium [Mass/Vol] 8.0 mg/dL Low 8.6-10.3 [facility] Comment on above: Performed By: #### L IPID, PT, CMP, CBC ####[address] Chloride [Moles/Vol] 103 mmol/L Normal 98-107 [facility] Comment on above: Performed By: #### L IPID, PT, CMP, CBC ####[address] CO2 [Moles/Vol] 27.8 mmol/L Normal 21.0-31.0 [facility] Comment on above: Performed By: #### L IPID, PT, CMP, CBC ####[address] Creatinine [Mass/Vol] 1.05 mg/dL Normal 0.70-1.30 [facility] Comment on above: Performed By: #### L IPID, PT, CMP, CBC ####[address] Creatinine Clr Calc Pharmacy 107.94 Normal [facility] Comment on above: Performed By: #### L IPID, PT, CMP, CBC ####[address] GFR/1.73 sq M.predicted MDRD (S/P/Bld) [Vol rate/Area] mL/min/{1.73_m2} Normal [facility] Comment on above: Performed By: #### L IPID, PT, CMP, CBC ####[address] Globulin (S) [Mass/Vol] 2.2 g/dL Normal [facility] Comment on above: Performed By: #### L IPID, PT, CMP, CBC ####[place] [id number] [facility] Glucose [Mass/Vol] 175 mg/dL High 70-100 [facility] Comment on above: Result Comment: [facility] Glucose Reference Range is dependent on time and content of last meal. Glucose of more than 200 mg/dL in a nonstressed, ambulatory subject supports the diagnosis of Diabetes Mellitus. ADA recommended reference range Performed By: #### L IPID, PT, CMP, CBC ####[place] [id number] [facility] Potassium [Moles/Vol] 3.7 mmol/L Normal 3.5-5.1 [facility] Comment on above: Performed By: #### L IPID, PT, CMP, CBC ####[address] Protein [Mass/Vol] 5.8 g/dL Low 6.4-8.9 [facility] Comment on above: Performed By: #### L IPID, PT, CMP, CBC ####[place] [id number] [facility] Sodium [Moles/Vol] 138 mmol/L Normal 136-145 [facility] Comment on above: Performed By: #### L IPID, PT, CMP, CBC ####[place] [id number] [facility] Urea nitrogen [Mass/Vol] 28 mg/dL High 7-25 [facility] Comment on above: Performed By: #### L IPID, PT, CMP, CBC ####[place] [id number] [facility] Creatine Kinaseon 04-03-2023 CK [Catalytic activity/Vol] 112 U/L Normal 30-223 [facility] Comment on above: Performed By: #### C K, HS TROP ####[place] [id number] [facility] CK [Catalytic activity/Vol] 101 U/L Normal 30-223 [facility] Comment on above: Performed By: #### H S TROP, CK ####[facility] [id number] [place] [id number] [facility] Creatine kinase [Enzymatic a ctivity/volume] in Serum or PlasmaOrdered By: Toy Yeager on 04-03-2023 CK [Catalytic activity/Vol] 112 U/L 30-223 [facility] ECG 12 lead ECGon 04-03-2023 ECG 12 lead ECG [facility] [address] [place] [address] [place] [address] Electrocardiograph Report Signed Patient: Harriett Thakkar MR#: [id number] 285 : 1965 Acct:[id number] Age/Sex: 58 / M ADM Date: 04/02/23 Loc: Room: [address] [place] [address] Type: ADM INOo Attending Dr: Toy Yeager [...] [place] Em MD 0 04/03/23 1049 Normal [facility] Glucose Poct Glucometerson 0 04-03-2023 Glucose [Mass/Vol] 182 mg/dL Normal [facility] Comment on above: Result Comment: [place] Glucose Reference Range is dependent on time and content of last meal. Glucose of more than 200 mg/dL in a nonstressed, ambulatory subject supports the diagnosis of Diabetes Mellitus. PERFORMED BY: [facility] [address] [place] [address] PATHOLOGIST PUMP SERVICER MELANI GUTIÉRREZ M.D. Performed By: #### G LULS #### Point of Care testing , Commemt1 Glu2: Cleaned Meter Normal [facility] Comment on above: Result Comment: PERF ORMED BY: [facility] [address] [address] PATHOLOGIST PUMP SERVICER MELANI GUTIÉRREZ M.D. Performed By: #### G LULS #### Point of Care testing , Glucose [Mass/Vol] 173 mg/dL Normal [facility] Comment on above: Result Comment: [facility] Glucose Reference Range is dependent on time and content of last meal. Glucose of more than 200 mg/dL in a nonstressed, ambulatory subject supports the diagnosis of Diabetes Mellitus. Performed By: #### G LULS #### Point of Care testing , Lipid Panelon 04-03-2023 Cholesterol [Mass/Vol] 69 mg/dL Low 140-200 [facility] Comment on above: Result Comment: Chol less than 200 mg/dl low risk Chol 201-239 mg/dl borderline risk Chol 240 mg/dl and greater high risk Performed By: #### L IPID, PT, CMP, CBC ####[place] [id number] [place] [address] [facility] Cholesterol in HDL [Mass/Vol] 16 mg/dL Low 23-92 [facility] Comment on above: Result Comment: HDL CHOL ATP-III CLASSIFICATION Cardiovascular Risk HDL > or equal to 60 mg/dL LOW HDL < 40 mg/dL HIGH Performed By: #### L IPID, PT, CMP, CBC ####[facility] [id number] [place] [address] [facility] Cholesterol.total/Ch olesterol in HDL [Mass ratio] 4.3 {ratio} Normal <5.0 [facility] Comment on above: Result Comment: PERF ORMED BY: [facility] [address] [place] [address] PATHOLOGIST PUMP SERVICER MELANI GUTIÉRREZ M.D. Performed By: #### L IPID, PT, CMP, CBC ####[facility] LDL Cholesterol,Calculat ed 17 mg/dL Normal 0-100 [facility] Comment on above: Result Comment: LDL ATP III CLASSIFICATION LDL less than 100 mg/dL Optimal LDL 100-129 mg/dL Near or above optimal LDL 130-159 mg/dL Borderline high LDL 160-189 mg/dL High LDL greater than 189 mg/dL Very high Performed By: #### L IPID, PT, CMP, CBC ####[place] [id number] [address] Triglyceride w/Reflex 182 mg/dL High 0-149 [facility] Comment on above: Result Comment: TRIG ATP III CLASSIFICATION TRIG less than 150 mg/dL Normal TRIG 150-199 mg/dL Borderline high TRIG 200-500 mg/dL High TRIG greater than 500 mg/dL Very high Standard traceable to the Center for Disease Conrtrol and Prevention (CDC) test method. Performed By: #### L IPID, PT, CMP, CBC ####[place] [id number] [address] VLDL CHOLESTEROL 36 mg/dL Normal [facility] Comment on above: Performed By: #### L IPID, PT, CMP, CBC ####[facility] No Panel InformationOrdered By: Toy Yeager on 04-03-2023 Bedside Glucose Comment Glu2: cleaned meter [facility] Prothrombin Time INRon 04-03 INR Coag (PPP) [Relative time] 3.3 {INR} Normal [facility] Comment on above: Result Comment: INR Therapeutic [...] heart valves: 3 - 4.5 PERFORMED BY: [facility] [address] [place] [phone] PATHOLOGIST PUMP SERVICER MELANI GUTIÉRREZ M.D. Performed By: #### L IPID, PT, CMP, CBC ####[place] [id number] [place] [id number] [facility] PT Coag (PPP) [Time] 38.4 s High 9.0-12.9 [facility] Comment on above: Performed By: #### L IPID, PT, CMP, CBC ####[place] [id number] [address] Serum or plasma high density lipoprotein (HDL) cholesterol measurementOrdered By: Toy Yeager on 04-03-2023 Cholesterol in HDL [Mass/Vol] 16 mg/dL 23-92 [facility] Comment on above: HDL CHOL ATP-III CLA SSIFICATION Cardiovascular RiskHDL > or equal to 60 mg/dL LOWHDL < 40 mg/dL HIGH Serum or plasma total choles terol/high density lipoprotein (HDL) cholesterol mass ratOrdered By: Toy Yeager on 04-03-2023 Cholesterol.total/Ch olesterol in HDL [Mass ratio] 4.3 {ratio} <5.0 [facility] Triglyceride [Mass/volume] i n Serum or PlasmaOrdered By: Toy Yeager on 04-03-2023 Triglyceride [Mass/Vol] 182 mg/dL 0-149 [facility] Comment on above: TRIG ATP III CLASSIF ICATIONTRIG less than 150 mg/dL NormalTRIG 150-199 mg/dL Borderline highTRIG 200-500 mg/dL High TRIG greater than 500 mg/dL Very highStandard traceable to the Center for Disease Conrtrol and Prevention (CDC) test method. Troponin I High Sensitivityo n 04-03-2023 Troponin I High Sensitivity 7.0 pg/mL Normal 0.0-20.0 [facility] Comment on above: Result Comment: PERF ORMED BY: [facility] [address] [place] [id number] PATHOLOGIST PUMP SERVICER MELANI GUTIÉRREZ M.D. Performed By: #### C K, HS TROP ####[place] [id number] [place] [id number] [facility] Troponin I High Sensitivity 12.0 pg/mL Normal 0.0-20.0 [facility] Comment on above: Result Comment: PERF ORMED BY: [facility] [address] [place] [id number] PATHOLOGIST PUMP SERVICER MELANI GUTIÉRREZ M.D. Performed By: #### H S TROP, CK ####[facility] [id number] [place] [id number] [facility] Troponin I.cardiac [Mass/vol ume] in Serum or Plasma by Detection limit <= 0.01 ng/Ordered By: Toy Yeager on 04-03-2023 Troponin I.cardiac DL <= 0.01 ng/mL [Mass/Vol] 7.0 pg/mL 0.0-20.0 [facility] Activated partial thrombopla stin time (aPTT) in platelet poor plasma by coagulation aOrdered By: José Luis Coleman on 04-02-2023 aPTT Coag (PPP) [Time] 41.1 s 25.1-36.5 [facility] Alanine aminotransferase [En zymatic activity/volume] in Serum or PlasmaOrdered By: José Luis Coleman on 04-02-2023 ALT [Catalytic activity/Vol] 24 U/L 7-52 [facility] Albumin [Mass/volume] in Ser um or Plasma by Bromocresol green (BCG) dye binding methoOrdered By: José Luis Coleman on 04-02-2023 Albumin BCG dye [Mass/Vol] 4.1 g/dL 3.5-5.7 [facility] Alkaline phosphatase [Enzyma tic activity/volume] in Serum or PlasmaOrdered By: José Luis Coleman on 04-02-2023 ALP [Catalytic activity/Vol] 83 U/L 34-104 [facility] Aspartate aminotransferase [ Enzymatic activity/volume] in Serum or PlasmaOrdered By: José Luis Coleman on 04-02-2023 AST [Catalytic activity/Vol] 21 U/L 13-39 [facility] B-Type Natriuretic Peptideon 04-02-2023 Natriuretic peptide B (Bld) [Mass/Vol] 81.0 pg/mL Normal 5-100 [facility] Comment on above: Result Comment: PERF ORMED BY: [facility] [address] [place] [address] PATHOLOGIST PUMP SERVICER MELANI GUTIÉRREZ M.D. Performed By: #### C MP, BNP, PTT, CBC, HS TROP, PT ####[facility] [id number] [place] [address] [facility] Basophils Auto (Bld) [#/Vol] Ordered By: José Luis Coleman on 04-02-2023 Basophils (Bld) [#/Vol] 0.1 10*3/uL 0.0-0.2 [facility] Basophils/100 WBC Auto (Bld) Ordered By: José Luis Coleman on 04-02-2023 Basophils/100 WBC (Bld) 1.0 % . [facility] Bilirubin.total [Mass/volume ] in Serum or PlasmaOrdered By: José Luis Coleman on 04-02-2023 Bilirubin [Mass/Vol] 0.9 mg/dL 0.3-1.0 [facility] Calcium [Mass/volume] in Ser um or PlasmaOrdered By: José Luis Coleman on 04-02-2023 Calcium [Mass/Vol] 9.4 mg/dL 8.6-10.3 [facility] Carbon dioxide, total [Moles /volume] in Serum or PlasmaOrdered By: José Luis Coleman on 04-02-2023 CO2 [Moles/Vol] 26.2 mmol/L 21.0-31.0 [facility] Chloride [Moles/volume] in S suad or PlasmaOrdered By: José Luis Coleman on 04-02-2023 Chloride [Moles/Vol] 102 mmol/L 98-107 [facility] Complete Blood Count Auto Di ffon 04-02-2023 Basophils (Bld) [#/Vol] 0.1 10*3/uL Normal 0.0-0.2 [facility] Comment on above: Result Comment: PERF ORMED BY: [facility] [address] [place] [address] PATHOLOGIST PUMP SERVICER MELANI GUTIÉRREZ M.D. Performed By: #### C MP, BNP, PTT, CBC, HS TROP, PT ####[address] Basophils/100 WBC (Bld) 1.0 % Normal . [facility] Comment on above: Performed By: #### C MP, BNP, PTT, CBC, HS TROP, PT ####[address] Eosinophils (Bld) [#/Vol] 0.2 10*3/uL Normal 0.0-0.45 [facility] Comment on above: Performed By: #### C MP, BNP, PTT, CBC, HS TROP, PT ####[address] Eosinophils/100 WBC (Bld) 3.0 % Normal . [facility] Comment on above: Performed By: #### C MP, BNP, PTT, CBC, HS TROP, PT ####[address] Erythrocyte distribution width (RBC) [Ratio] 14.3 % Normal 12.0-14.8 [facility] Comment on above: Performed By: #### C MP, BNP, PTT, CBC, HS TROP, PT ####[address] Hematocrit (Bld) [Volume fraction] 43.1 % Normal 38.8-50.0 [facility] Comment on above: Performed By: #### C MP, BNP, PTT, CBC, HS TROP, PT ####[address] Hemoglobin (Bld) [Mass/Vol] 15.4 g/dL Normal 13.0-17.0 [facility] Comment on above: Performed By: #### C MP, BNP, PTT, CBC, HS TROP, PT ####[address] Lymphocytes (Bld) [#/Vol] 1.5 10*3/uL Normal 1.00-4.8 [facility] Comment on above: Performed By: #### C MP, BNP, PTT, CBC, HS TROP, PT ####[address] Lymphocytes/100 WBC (Bld) 18.7 % Normal . [facility] Comment on above: Performed By: #### C MP, BNP, PTT, CBC, HS TROP, PT ####[address] MCH (RBC) [Entitic mass] 32.1 pg Normal 27.5-35.2 [facility] Comment on above: Performed By: #### C MP, BNP, PTT, CBC, HS TROP, PT ####[address] MCV (RBC) [Entitic vol] 89.9 fL Normal 83.5-101 [facility] Comment on above: Performed By: #### C MP, BNP, PTT, CBC, HS TROP, PT ####[address] Mean Corpuscular HGB Conc 35.8 g/dL High 32.5-35.6 [facility] Comment on above: Performed By: #### C MP, BNP, PTT, CBC, HS TROP, PT ####[address] Monocytes (Bld) [#/Vol] 0.8 10*3/uL Normal 0.0-0.8 [facility] Comment on above: Performed By: #### C MP, BNP, PTT, CBC, HS TROP, PT ####[address] Monocytes/100 WBC (Bld) 18.18 % Normal 0.00-20.00 [facility] Comment on above: Performed By: #### C MP, BNP, PTT, CBC, HS TROP, PT ####[address] Monocytes/100 WBC (Bld) 9.6 % Normal . [facility] Comment on above: Performed By: #### C MP, BNP, PTT, CBC, HS TROP, PT ####[address] Neutrophils (Bld) [#/Vol] 5.3 10*3/uL Normal 1.8-7.7 [facility] Comment on above: Performed By: #### C MP, BNP, PTT, CBC, HS TROP, PT ####[address] Neutrophils/100 WBC (Bld) 67.7 % Normal . [facility] Comment on above: Performed By: #### C MP, BNP, PTT, CBC, HS TROP, PT ####[address] NRBC% 0.2 /100{WBC} Normal 0-0.5 [facility] Comment on above: Performed By: #### C MP, BNP, PTT, CBC, HS TROP, PT ####[address] Platelet mean volume (Bld) [Entitic vol] 9.6 fL Normal 6.6-10.1 [facility] Comment on above: Performed By: #### C MP, BNP, PTT, CBC, HS TROP, PT ####[address] Platelets (Bld) [#/Vol] 179 10*3/uL Normal 150-450 [facility] Comment on above: Performed By: #### C MP, BNP, PTT, CBC, HS TROP, PT ####[address] RBC (Bld) [#/Vol] 4.79 10*6/uL Normal 3.90-5.60 [facility] Comment on above: Performed By: #### C MP, BNP, PTT, CBC, HS TROP, PT ####[address] WBC (Bld) [#/Vol] 7.8 10*3/uL Normal 4.1-10.5 [facility] Comment on above: Performed By: #### C MP, BNP, PTT, CBC, HS TROP, PT ####[address] Comprehensive Metabolic Pane lindy 04-02-2023 Albumin [Mass/Vol] 4.1 g/dL Normal 3.5-5.7 [facility] Comment on above: Performed By: #### C MP, BNP, PTT, CBC, HS TROP, PT ####[address] Albumin/Globulin [Mass ratio] 1.6 {ratio} Normal [facility] Comment on above: Performed By: #### C MP, BNP, PTT, CBC, HS TROP, PT ####[address] ALP [Catalytic activity/Vol] 83 U/L Normal 34-104 [facility] Comment on above: Performed By: #### C MP, BNP, PTT, CBC, HS TROP, PT ####[address] ALT [Catalytic activity/Vol] 24 U/L Normal 7-52 [facility] Comment on above: Performed By: #### C MP, BNP, PTT, CBC, HS TROP, PT ####[address] Anion gap [Moles/Vol] 15.1 mmol/L High 6.0-15.0 [facility] Comment on above: Performed By: #### C MP, BNP, PTT, CBC, HS TROP, PT ####[address] AST [Catalytic activity/Vol] 21 U/L Normal 13-39 [facility] Comment on above: Performed By: #### C MP, BNP, PTT, CBC, HS TROP, PT ####[address] Bilirubin [Mass/Vol] 0.9 mg/dL Normal 0.3-1.0 [facility] Comment on above: Performed By: #### C MP, BNP, PTT, CBC, HS TROP, PT ####[place] [id number] [place] [id number] [facility] Calcium [Mass/Vol] 9.4 mg/dL Normal 8.6-10.3 [facility] Comment on above: Performed By: #### C MP, BNP, PTT, CBC, HS TROP, PT ####[address] [address] [facility] Chloride [Moles/Vol] 102 mmol/L Normal 98-107 [facility] Comment on above: Performed By: #### C MP, BNP, PTT, CBC, HS TROP, PT ####[place] [id number] [facility] CO2 [Moles/Vol] 26.2 mmol/L Normal 21.0-31.0 [facility] Comment on above: Performed By: #### C MP, BNP, PTT, CBC, HS TROP, PT ####[place] [id number] [facility] Creatinine [Mass/Vol] 1.46 mg/dL High 0.70-1.30 [facility] Comment on above: Performed By: #### C MP, BNP, PTT, CBC, HS TROP, PT ####[place] [id number] [facility] Creatinine Clr Calc Pharmacy 77.99 Normal [facility] Comment on above: Result Comment: PERF ORMED BY: [facility] [address] [facility] [place] [address] PATHOLOGIST PUMP SERVICER MELANI GUTIÉRREZ M.D. Performed By: #### C MP, BNP, PTT, CBC, HS TROP, PT ####[place] [id number] [facility] GFR/1.73 sq M.predicted MDRD (S/P/Bld) [Vol rate/Area] 54.714 mL/min/{1.73_m2} Normal [facility] Comment on above: Performed By: #### C MP, BNP, PTT, CBC, HS TROP, PT ####[place] [id number] [facility] Globulin (S) [Mass/Vol] 2.6 g/dL Normal [facility] Comment on above: Performed By: #### C MP, BNP, PTT, CBC, HS TROP, PT ####[address] Glucose [Mass/Vol] 207 mg/dL High 70-100 [facility] Comment on above: Result Comment: [place] Glucose Reference Range is dependent on time and content of last meal. Glucose of more than 200 mg/dL in a nonstressed, ambulatory subject supports the diagnosis of Diabetes Mellitus. ADA recommended reference range Performed By: #### C MP, BNP, PTT, CBC, HS TROP, PT ####[address] Potassium [Moles/Vol] 4.3 mmol/L Normal 3.5-5.1 [facility] Comment on above: Performed By: #### C MP, BNP, PTT, CBC, HS TROP, PT ####[address] Protein [Mass/Vol] 6.7 g/dL Normal 6.4-8.9 [facility] Comment on above: Performed By: #### C MP, BNP, PTT, CBC, HS TROP, PT ####[address] Sodium [Moles/Vol] 139 mmol/L Normal 136-145 [facility] Comment on above: Performed By: #### C MP, BNP, PTT, CBC, HS TROP, PT ####[address] Urea nitrogen [Mass/Vol] 33 mg/dL High 7-25 [facility] Comment on above: Performed By: #### C MP, BNP, PTT, CBC, HS TROP, PT ####[place] [id number] [facility] Creatine Kinaseon 04-02-2023 CK [Catalytic activity/Vol] 97 U/L Normal 30-223 [facility] Comment on above: Performed By: #### C K, HS TROP ####[facility] [place] [address] [facility] CK [Catalytic activity/Vol] 97 U/L Normal 30-223 [facility] Comment on above: Performed By: #### H S TROP, CK ####[facility] [place] [address] [facility] CK [Catalytic activity/Vol] 98 U/L Normal 30-223 [facility] Comment on above: Performed By: #### C K, HS TROP ####[place] [address] [place] [address] [facility] Creatinine [Mass/volume] in Serum or PlasmaOrdered By: José Luis Coleman on 04-02-2023 Creatinine [Mass/Vol] 1.46 mg/dL 0.70-1.30 [facility] ECG 12 lead ECGon 04-02-2023 ECG 12 lead ECG [facility] [place] [address] [place] [address] Electrocardiograph Report Signed Patient: Harriett Thakkar MR#: [id number] 285 : 1965 Acct:[id number] Age/Sex: 58 / M ADM Date: 04/02/23 Loc: Room: [address] [place] [address] Type: ADM INOo Attending Dr: Toy Yeager [...] found Confirmed by José Luis Coleman DO ([id number]) on 04/02/2023 2:43:56 PM Referred By: Electronically Signed By:José Luis Coleman DO Transcribed By: MUS Signed By José Luis Coleman DO 3 1444 Normal [facility] Eosinophils Auto (Bld) [#/Vo l]Ordered By: José Luis Coleman on 04-02-2023 Eosinophils (Bld) [#/Vol] 0.2 10*3/uL 0.0-0.45 [facility] Eosinophils/100 WBC Auto (Bl d)Ordered By: José Luis Coleman on 04-02-2023 Eosinophils/100 WBC (Bld) 3.0 % . [facility] Erythrocyte distribution wid th Auto (RBC) [Ratio]Ordered By: José Luis Coleman on 04-02-2023 Erythrocyte distribution width (RBC) [Ratio] 14.3 % 12.0-14.8 [facility] Globulin Calc (S) [Mass/Vol] Ordered By: José Luis Coleman on 04-02-2023 Globulin (S) [Mass/Vol] 2.6 g/dL [facility] Glucose Poct Glucometerson 0 04-02-2023 Glucose [Mass/Vol] 122 mg/dL Normal [facility] Comment on above: Result Comment: [facility] Glucose Reference Range is dependent on time and content of last meal. Glucose of more than 200 mg/dL in a nonstressed, ambulatory subject supports the diagnosis of Diabetes Mellitus. PERFORMED BY: [place] [address] PATHOLOGIST PUMP SERVICER MELANI GUTIÉRREZ M.D. Performed By: #### G LULS ####Point of Care testing, Commemt1 Glu2: Cleaned Meter Normal [facility] Comment on above: Result Comment: PERF ORMED BY: [facility] [address] [place] [address] PATHOLOGIST PUMP SERVICER MELANI GUTIÉRREZ M.D. Performed By: #### G LULS ####Point of Care testing, Glucose [Mass/Vol] 112 mg/dL Normal [facility] Comment on above: Result Comment: [facility] Glucose Reference Range is dependent on time and content of last meal. Glucose of more than 200 mg/dL in a nonstressed, ambulatory subject supports the diagnosis of Diabetes Mellitus. Performed By: #### G LULS ####Point of Care testing, Glucose [Mass/volume] in Ser um or PlasmaOrdered By: José Luis Coleman on 04-02-2023 Glucose [Mass/Vol] 207 mg/dL 70-100 [facility] Comment on above: ADA recommended refe rence rangeRandom Glucose Reference Range is dependent on time and content of last meal. Glucose of more than 200 mg/dL in a nonstressed, ambulatory subject supports the diagnosis of Diabetes Mellitus. Hematocrit Auto (Bld) [Volum e fraction]Ordered By: José Luis Coleman on 04-02-2023 Hematocrit (Bld) [Volume fraction] 43.1 % 38.8-50.0 [facility] Hemoglobin [Mass/volume] in BloodOrdered By: José Luis Coleman on 04-02-2023 Hemoglobin (Bld) [Mass/Vol] 15.4 g/dL 13.0-17.0 [facility] Laboratory - CoagulationOrde red By: José Luis Coleman on 04-02-2023 PT Coag (PPP) [Time] 32.0 s 9.0-12.9 [facility] Leukocytes [#/volume] correc kaylee for nucleated erythrocytes in Blood by Automated counOrdered By: José Luis Coleman on 04-02-2023 WBC corrected for nucl RBC Auto (Bld) [#/Vol] 7.8 10*3/uL 4.1-10.5 [facility] Lymphocytes Auto (Bld) [#/Vo l]Ordered By: José Luis Coleman on 04-02-2023 Lymphocytes (Bld) [#/Vol] 1.5 10*3/uL 1.00-4.8 [facility] Lymphocytes/100 WBC Auto (Bl d)Ordered By: José Luis Coleman on 04-02-2023 Lymphocytes/100 WBC (Bld) 18.7 % . [facility] MCH Auto (RBC) [Entitic mass ]Ordered By: José Luis Coleman on 04-02-2023 MCH (RBC) [Entitic mass] 32.1 pg 27.5-35.2 [facility] MCHC Auto (RBC) [Mass/Vol]Or dered By: José Luis Coleman on 04-02-2023 MCHC (RBC) [Mass/Vol] 35.8 g/dL 32.5-35.6 [facility] MCV Auto (RBC) [Entitic vol] Ordered By: José Luis Coleman on 04-02-2023 MCV (RBC) [Entitic vol] 89.9 fL 83.5-101 [facility] Monocyte distribution width [Entitic volume] in Blood by AutomatedOrdered By: José Luis Coleman on 04-02-2023 Monocyte distribution width Auto (Bld) [Entitic vol] 18.18 % 0.00-20.00 [facility] Monocytes Auto (Bld) [#/Vol] Ordered By: José Luis Coleman on 04-02-2023 Monocytes (Bld) [#/Vol] 0.8 10*3/uL 0.0-0.8 [facility] Monocytes/100 WBC Auto (Bld) Ordered By: José Luis Coleman on 04-02-2023 Monocytes/100 WBC (Bld) 9.6 % . [facility] Natriuretic peptide B [Mass/ Vol]Ordered By: José Luis Coleman on 04-02-2023 Natriuretic peptide B (Bld) [Mass/Vol] 81.0 pg/mL 5-100 [facility] Neutrophils Auto (Bld) [#/Vo l]Ordered By: José Luis Coleman on 04-02-2023 Neutrophils (Bld) [#/Vol] 5.3 10*3/uL 1.8-7.7 [facility] Neutrophils/100 WBC Auto (Bl d)Ordered By: José Luis oCleman on 04-02-2023 Neutrophils/100 WBC (Bld) 67.7 % . [facility] No Panel InformationOrdered By: José Luis Coleman on 04-02-2023 Estimated GFR (CKD-EPI) 54.714 mL/Min [facility] Creatinine Clearance (Chem 77.99 [facility] Nucleated erythrocytes [Pres ence] in Blood by Automated countOrdered By: José Luis Coleman on 04-02-2023 Nucleated RBC Auto Ql (Bld) 0.2 /100{WBC} 0-0.5 [facility] Partial Thromboplastin Timeo n 04-02-2023 aPTT Coag (Bld) [Time] 41.1 s High 25.1-36.5 [facility] Comment on above: Result Comment: PERF ORMED BY: [facility] [address] [place] [id number] PATHOLOGIST PUMP SERVICER MELANI GUTIÉRREZ M.D. Performed By: #### C MP, BNP, PTT, CBC, HS TROP, PT ####[facility] [id number] [place] [address] [facility] Platelet mean volume Auto (B ld) [Entitic vol]Ordered By: José Luis Coleman on 04-02-2023 Platelet mean volume (Bld) [Entitic vol] 9.6 fL 6.6-10.1 [facility] Platelet poor plasma interna tional normalized ratio (INR) by coagulation assay (relatOrdered By: José Luis Coleman on 04-02-2023 INR Coag (PPP) [Relative time] 2.8 {INR} [facility] Comment on above: INR Therapeutic Rang [...] 04-02-2023 Platelets (Bld) [#/Vol] 179 10*3/uL 150-450 [facility] Potassium [Moles/volume] in Serum or PlasmaOrdered By: José Luis Coleman on 04-02-2023 Potassium [Moles/Vol] 4.3 mmol/L 3.5-5.1 [facility] Protein [Mass/volume] in Ser um or PlasmaOrdered By: José Luis Coleman on 04-02-2023 Protein [Mass/Vol] 6.7 g/dL 6.4-8.9 [facility] Prothrombin Time INRon 04-02 INR Coag (PPP) [Relative time] 2.8 {INR} Normal [facility] Comment on above: Result Comment: INR Therapeutic [...] valves: 3 - 4.5 Performed By: #### C MP, BNP, PTT, CBC, HS TROP, PT ####[place] [id number] PT Coag (PPP) [Time] 32.0 s High 9.0-12.9 [facility] Comment on above: Performed By: #### C MP, BNP, PTT, CBC, HS TROP, PT ####[place] [id number] RBC Auto (Bld) [#/Vol]Ordere d By: José Luis Coleman on 04-02-2023 RBC (Bld) [#/Vol] 4.79 10*6/uL 3.90-5.60 [facility] Serum or plasma albumin/glob ulin mass ratioOrdered By: José Luis Coleman on 04-02-2023 Albumin/Globulin [Mass ratio] 1.6 {ratio} [facility] Serum or plasma anion gap de terminationOrdered By: José Luis Coleman on 04-02-2023 Anion gap [Moles/Vol] 15.1 mmol/L 6.0-15.0 [facility] Sodium [Moles/volume] in Ser um or PlasmaOrdered By: José Luis Coleamn on 04-02-2023 Sodium [Moles/Vol] 139 mmol/L 136-145 [facility] Troponin I High Sensitivityo n 04-02-2023 Troponin I High Sensitivity 14.5 pg/mL Normal 0.0-20.0 [facility] Comment on above: Result Comment: PERF ORMED BY: [facility] [address] [address] PATHOLOGIST PUMP SERVICER MELANI GUTIÉRREZ M.D. Performed By: #### C K, HS TROP ####[address] Troponin I High Sensitivity 8.5 pg/mL Normal 0.0-20.0 [facility] Comment on above: Result Comment: PERF ORMED BY: [facility] [address] [place] [address] PATHOLOGIST PUMP SERVICER MELANI GUTIÉRREZ M.D. Performed By: #### H S TROP, CK ####[place] [id number] [facility] Troponin I High Sensitivity 8.9 pg/mL Normal 0.0-20.0 [facility] Comment on above: Result Comment: PERF ORMED BY: [facility] [address] [place] [address] PATHOLOGIST PUMP SERVICER MELANI GUTIÉRREZ M.D. Performed By: #### C K, HS TROP ####[place] [id number] [facility] Troponin I High Sensitivity 8.8 pg/mL Normal 0.0-20.0 [facility] Comment on above: Result Comment: PERF ORMED BY: [facility] [address] [place] [address] PATHOLOGIST PUMP SERVICER MELANI GUTIÉRREZ M.D. Performed By: #### C MP, BNP, PTT, CBC, HS TROP, PT ####[place] [id number] [facility] Troponin I.cardiac [Mass/vol ume] in Serum or Plasma by Detection limit <= 0.01 ng/Ordered By: José Luis Coleman on 04-02-2023 Troponin I.cardiac DL <= 0.01 ng/mL [Mass/Vol] 8.8 pg/mL 0.0-20.0 [facility] Urea nitrogen [Mass/volume] in Serum or PlasmaOrdered By: José Luis Coleman on 04-02-2023 Urea nitrogen [Mass/Vol] 33 mg/dL 04-12 [facility] WBC Auto (Bld) [#/Vol]Ordere d By: José Luis Coleman on 04-02-2023 WBC (Bld) [#/Vol] 7.8 10*3/uL 4.1-10.5 [facility] XR chest 1V portableon 04-02 XR chest 1V portable [facility] [place] [address] XRay Report Signed Patient: Harriett Thakkar MR#: [id number] 285 : 1965 Acct:[id number] Age/Sex: 58 / M ADM Date: 04/02/23 [...] Erica Hay M.D.04/02/2023 10:41 AM Dictation Location: [place] [address] Transcribed By: [facility] 04/02/23 1041 Dictated By: Erica Hay MD 04/02/23 1040 Signed By: 04/02/23 1041 Normal [facility] Prothrombin Time INRon 03-14 INR Coag (PPP) [Relative time] 2.7 {INR} [employer] Other Prothrombin Time INR [place] [employer] Other Prothrombin Time INRon 02-16 Prothrombin Time INR [employer] Other Prothrombin Time INRon 01-25 INR Coag (PPP) [Relative time] 2.7 {INR} [employer] Other [facility] Other Ambulatory Visit Summaryon 0 01-19-2023 Ambulatory Visit Summary HARRIETT THAKKAR DOB:1965 Visit Date:01/19/2023 Ambulatory Visit Instructions Your Diagnosis BMI 39.0-39.9,adult Class 3 obesity Your Care Team Attending Physician - GLADYS GARCIA MD Primary Care Physician - GLADYS GARCIA MD This Is Your Medications List Misc Prescription (Misc DME Prescription) Misc Prescription (Misc DME Prescription) aspirin (aspirin 81 mg Oral [...] for. Cardiac contusion and hemopericardium COVID-19 Normal [facility] Prothrombin Time INRon 01-13 INR Coag (PPP) [Relative time] 3.2 {INR} [place] [employer] Other Prothrombin Time INR [place] [employer] Other Office Visit (Cardiology)on 01-11-2023 Follow-up visit Diagnoses/Problems Assessed Coronary artery disease involving iqugmiut coronary artery of iqugmiut heart without angina pectoris (414.01) (I25.10) History of PTCA (V45.82) (Z98.61) History of PR (myocardial infarction) (412) (I25.2) Ventricular tachycardia, nonsustained [...] Weight Tips; Status:Complete - Retrospective Authorization; Done: [id number] Some eating tips that can help you lose weight.; Status:Complete - Retrospective Authorization; Done: [id number] Coronary artery disease involving iqugmiut coronary artery of iqugmiut heart without angina pectoris Renew: Atorvastatin Calcium 80 MG Oral Tablet; take 1 tablet by mouth every evening Paroxysmal atrial fibrillation IO EKG Electrocardiogram- 12 Lead; Status:Complete; Done: [id number] SocHx: Never a smoker Tobacco Use Screening; Status:Complete; Done: [id number] Patient Instructions Please bring all medicines, vitamins, [...] catheterization with stent placement History of Colonoscopy [id number] History of Neck surgery disectomy History of Toe amputation Past Medical History Problems History of dizziness (V13.89) (Z87.898) Resolved Date: 16 Dec 2021 History of dyspnea (V12.69) (Z87.898) Resolved Date: 16 Dec 2021 Current Meds Medication NameInstruction Atorvastatin Calcium 80 MG Oral Tablettake 1 tablet by mouth every evening Clopidogrel Bisulfate 75 MG Oral TabletTake (more content not included)... Normal [facility] Tobacco Screening.on 023 Tobacco use status [facility] b) No [facility] y 250 DO Work Phone: Physician Referralon 023 Physician Referral [id number] #1.00CD:127 Normal [facility] Prothrombin Time INRon 12-30 INR Coag (PPP) [Relative time] 2.5 {INR} [facility] [employer] Other Prothrombin Time INR Nort [facility] [employer] Other Lab Reportson 12-29-2022 Lab Reports [id number] #1.00CD:127 Normal [facility] Lab Reports [id number] #1.00CD:127 Normal [facility] CBC AUTO DIFFon 12-23-2022 BASO # 0.0 103/ul Normal 0.0-0.1 [facility] Comment on above: Performed By: #### C BC #### [facility] [address] [address] [address] Rayshawn Clark Basophils/100 WBC (Bld) 0.4 % Normal 0.2-2.0 [facility] Comment on above: Performed By: #### C BC #### [facility] [address] [address] [address] Rayshawn Clark EO # 0.3 103/ul Normal 0.0-0.[address] [facility] Comment on above: Performed By: #### C BC #### [facility] [address] [address] [address] Rayshawn Clark Eosinophils/100 WBC (Bld) 3.5 % Normal 0.9-7.0 [facility] Comment on above: Performed By: #### C BC #### [facility] [address] [place] [address] Dr. Rayshawn Clark Erythrocyte distribution width (RBC) [Ratio] 12.5 % Normal 11.0-15.[address] [facility] Comment on above: Performed By: #### C BC #### [facility] [address] [place] [address] Dr. Rayshawn Clark Hematocrit (Bld) [Volume fraction] 43.3 % Normal 42.0-54.0 [facility] Comment on above: Performed By: #### C BC #### [facility] [address] [place] [address] Dr. Rayshawn Clark Hemoglobin (Bld) [Mass/Vol] 15.6 g/dL Normal 14.0-18.0 [facility] Comment on above: Performed By: #### C BC #### [facility] [address] [place] [address] Dr. Rayshawn Clark IG # 0.03 10e3/ul Normal 0.00-0.03 [facility] Comment on above: Performed By: #### C BC #### [facility] [address] [place] [address] Dr. Rayshawn Clark IG % 0.4 % Normal 0.0-0.5 [facility] Comment on above: Performed By: #### C BC #### [facility] [address] [place] [address] Dr. Rayshawn Clark LYMPH # 1.4 103/ul Normal 1.2-3.8 [facility] Comment on above: Performed By: #### C BC #### [facility] [address] [place] [address] Dr. Rayshawn Clark Lymphocytes/100 WBC (Bld) 17.5 % Critically low 20.5-60.0 [facility] Comment on above: Performed By: #### C BC #### [facility] [address] [place] [address] Dr. Rayshawn Clark MANUAL DIFF REQ NO Normal [facility] Comment on above: Performed By: #### C BC #### [facility] [address] [place] [address] Dr. Rayshawn Clark MCH (RBC) [Entitic mass] 32.0 pg Normal 25.9-34.0 [facility] Comment on above: Performed By: #### C BC #### [facility] [address] [address] [address] Rayshawn Clark MCHC (RBC) [Mass/Vol] 36.0 g/dL Critically high 29.9-35.2 [facility] Comment on above: Performed By: #### C BC #### [facility] [address] [address] [address] Rayshawn Clark MCV (RBC) [Entitic vol] 88.7 fL Normal 80.0-94.0 [facility] Comment on above: Performed By: #### C BC #### [facility] [address] [address] [address] Rayshawn Clark MONO # 0.6 103/ul Normal 0.3-0.8 [facility] Comment on above: Performed By: #### C BC #### [facility] [address] [place] [address] Dr. Rayshawn Clark Monocytes/100 WBC (Bld) 7.9 % Normal 1.7-12.0 [facility] Comment on above: Performed By: #### C BC #### [facility] [address] [place] [address] Dr. Rayshawn Clark NEUT # 5.6 103/ul Normal 1.4-6.5 [facility] Comment on above: Performed By: #### C BC #### [facility] [address] [place] [address] Dr. Rayshawn Clark Neutrophils/100 WBC (Bld) 70.3 % Normal 43.0-75.[address] [facility] Comment on above: Performed By: #### C BC #### [facility] [address] [place] [address] Dr. Rayshawn Clark Platelet mean volume (Bld) [Entitic vol] 10.6 fL Normal 9.5-13.[address] [facility] Comment on above: Performed By: #### C BC #### [facility] [address] [address] [address] Rayshawn Clark PLT 134 103/ul Critically low 150-450 [facility] Comment on above: Performed By: #### C BC #### [facility] [address] [place] [address] [address] Rayshawn Clark RBC 4.88 106/ul Normal 4.70-6.10 [facility] Comment on above: Performed By: #### C BC #### [facility] [address] [place] [address] [address] Rayshawn Clark WBC 7.9 103/ul Normal 4.0-11.0 [facility] Comment on above: Performed By: #### C BC #### [facility] [address] [place] [address] [address] Rayshawn Clark CRPon 12-23-2022 CRP 1.8 mg/dL Critically high <=1.0 [facility] Comment on above: Performed By: #### C RP, PREALB #### [facility] [address] [place] [address] Dr. Rayshawn Clark GLYCOHEMOGLOBIN A1Con 2022 ADA RECOMMENDATION SEE BELOW Normal [facility] Comment on above: Result Comment: ADA RECOMMENDED LIMIT 4.0 - 6.0 ADA THERAPEUTIC TARGET < 7.0 ACTION SUGGESTED > 7.0 Performed By: #### A 1C #### [facility] [address] [place] [address] Dr. Rayshawn Clark Glucose [Mass/Vol] 200 mg/dL Normal [facility] Comment on above: Performed By: #### A 1C #### [facility] [address] [place] [address] Dr. Rayshawn Clark HbA1c (Bld) [Mass fraction] 8.6 % Critically high 4.5-6.2 [facility] Comment on above: Performed By: #### A 1C #### [facility] [address] [place] [address] Dr. Rayshawn Clark LIPID PROFILEon 12-23-2022 CHOL-HDL RATIO NORM SEE BELOW Normal [facility] Comment on above: Result Comment: 3.3 - 4.4 LOW RISK 4.4 - 7.1 AVERAGE RISK 7.1 - 11.0 MODERATE RISK >11.0 HIGH RISK Performed By: #### M G, TSH, LIPID, CMP #### [facility] [address] [address] [address] Rayshawn Clark Cholesterol [Mass/Vol] 94 mg/dL Normal <=200 [facility] Comment on above: Performed By: #### M G, TSH, LIPID, CMP #### [facility] [address] [address] [address] Rayshawn Clark Cholesterol in HDL [Mass/Vol] 34 mg/dL Critically low 40-[address] [facility] Comment on above: Performed By: #### M G, TSH, LIPID, CMP #### [facility] [address] [address] [address] Rayshawn Clark Cholesterol in LDL [Mass/Vol] 42.4 mg/dL Normal [facility] Comment on above: Performed By: #### M G, TSH, LIPID, CMP #### [facility] [address] [address] [address] Rayshawn Clark Cholesterol.total/Ch olesterol in HDL [Mass ratio] 2.8 {ratio} Normal [facility] Comment on above: Performed By: #### M G, TSH, LIPID, CMP #### [facility] [address] [address] [address] Rayshawn Clark HDL NORMAL > or = 60 mg/dl - LOW CARDIOVASCULAR RISK <40 mg/dl - HIGH CARDIOVASCULAR RISK Normal [facility] Comment on above: Performed By: #### M G, TSH, LIPID, CMP #### [facility] [address] [address] [address] Rayshawn Clark LDL CALC NORMAL SEE BELOW Normal [facility] Comment on above: Result Comment: <100 mg/dl OPTIMAL 100 - 129 mg/dl NEAR OR ABOVE OPTIMAL 130 - 159 mg/dl BORDERLINE HIGH 160 - 189 mg/dl HIGH >190 mg/dl VERY HIGH Performed By: #### M G, TSH, LIPID, CMP #### [facility] [address] [address] [address] Rayshawn Clark Triglyceride [Mass/Vol] 88 mg/dL Normal <=[address] [facility] Comment on above: Performed By: #### M G, TSH, LIPID, CMP #### [facility] [address] [place] [address] Dr. Rayshawn Clark VLDL CALC 17.6 mg/dL Normal [facility] Comment on above: Performed By: #### M G, TSH, LIPID, CMP #### [facility] [address] [place] [address] Dr. Rayshawn Clark MAGNESIUMon 12-23-2022 Magnesium [Mass/Vol] 1.0 mg/dL Critically low 1.8-2.4 [facility] Comment on above: Performed By: #### M G, TSH, LIPID, CMP #### [facility] [address] [place] [address] Dr. Rayshawn Clark PREALBUMINon 12-23-2022 Prealbumin [Mass/Vol] 21.2 mg/dL Normal 20.9-45.5 [facility] Comment on above: Performed By: #### C RP, PREALB #### [facility] [address] [place] [address] Dr. Rayshawn Clark PROF 14(COMP METB)on 023 Albumin [Mass/Vol] 3.6 g/dL Normal 3.4-5.0 [facility] Comment on above: Performed By: #### M G, TSH, LIPID, CMP #### [facility] [address] [place] [address] Dr. Rayshawn Clark Albumin/Globulin [Mass ratio] 1.1 {ratio} Normal [facility] Comment on above: Performed By: #### M G, TSH, LIPID, CMP #### [facility] [address] [place] [address] Dr. Rayshawn Clark ALP [Catalytic activity/Vol] 99 U/L Normal 46-[address] [facility] Comment on above: Performed By: #### M G, TSH, LIPID, CMP #### [facility] [address] [place] [address] Dr. Rayshawn Clark ALT [Catalytic activity/Vol] 35 U/L Normal 16-63 [facility] Comment on above: Performed By: #### M G, TSH, LIPID, CMP #### [facility] [address] [place] [address] Dr. Rayshawn Clark Anion gap [Moles/Vol] 13.5 mmol/L Normal [facility] Comment on above: Performed By: #### M G, TSH, LIPID, CMP #### [facility] [address] [address] [address] Rayshawn Clark AST [Catalytic activity/Vol] 18 U/L Normal 15-37 [facility] Comment on above: Performed By: #### M G, TSH, LIPID, CMP #### [facility] [address] [address] [address] Rayshawn Clark Bilirubin [Mass/Vol] 0.9 mg/dL Normal 0.2-1.0 [facility] Comment on above: Performed By: #### M G, TSH, LIPID, CMP #### [facility] [address] [place] [address] Dr. Rayshawn Clark Calcium [Mass/Vol] 9.1 mg/dL Normal 8.5-10.1 [facility] Comment on above: Performed By: #### M G, TSH, LIPID, CMP #### [facility] [address] [place] [address] Dr. Rayshawn Clark Chloride [Moles/Vol] 101 mmol/L Normal 98-[address] [facility] Comment on above: Performed By: #### M G, TSH, LIPID, CMP #### [facility] [address] [place] [address] Dr. Rayshawn Clark CO2 [Moles/Vol] 26.6 mmol/L Normal 21.0-32.0 [facility] Comment on above: Performed By: #### M G, TSH, LIPID, CMP #### [facility] [address] [place] [address] Dr. Rayshawn Clark Creatinine [Mass/Vol] 1.11 mg/dL Normal 0.70-1.30 [facility] Comment on above: Performed By: #### M G, TSH, LIPID, CMP #### [facility] [address] [place] [address] Dr. Rayshawn Clark EGFR-AF CONGOLESE >60 Normal >=60 [facility] Comment on above: Performed By: #### M G, TSH, LIPID, CMP #### [facility] [address] [address] [address] Rayshawn Clark EGFR-NON AF CONGOLESE >60 Normal >=60 [facility] Comment on above: Performed By: #### M G, TSH, LIPID, CMP #### [facility] [address] [address] [address] Rayshawn Clark Globulin (S) [Mass/Vol] 3.4 g/dL Normal [facility] Comment on above: Performed By: #### M G, TSH, LIPID, CMP #### [facility] [address] [address] [address] Rayshawn Clark Glucose [Mass/Vol] 187 mg/dL Critically high 74-106 [facility] Comment on above: Performed By: #### M G, TSH, LIPID, CMP #### [facility] [address] [place] [address] Dr. Rayshawn Clark Potassium [Moles/Vol] 4.1 mmol/L Normal 3.5-5.1 [facility] Comment on above: Performed By: #### M G, TSH, LIPID, CMP #### [facility] [address] [address] [address] Rayshawn Clark Protein [Mass/Vol] 7.0 g/dL Normal 6.4-8.2 [facility] Comment on above: Performed By: #### M G, TSH, LIPID, CMP #### [facility] [address] [address] [address] Rayshawn Clark Sodium [Moles/Vol] 137 mmol/L Normal 136-145 [facility] Comment on above: Performed By: #### M G, TSH, LIPID, CMP #### [facility] [address] [place] [address] Dr. Rayshawn Clark Urea nitrogen [Mass/Vol] 16.0 mg/dL Normal 7.0-18.0 [facility] Comment on above: Performed By: #### M G, TSH, LIPID, CMP #### [facility] [address] [place] [address] Dr. Rayshawn Clark Urea nitrogen/Creatinine [Mass ratio] 14.4 mg/mg Normal [facility] Comment on above: Performed By: #### M G, TSH, LIPID, CMP #### [facility] [address] [id number] Rayshawn Clark Physician Referralon 023 Physician Referral [id number] Normal [facility] mm/hr Normal <=20 [facility] Comment on above: Performed By: #### S EDR #### [facility] [address] [address] [address] Rayshawn Clark TSHon 12-23-2022 TSH 1.119 uIU/mL Normal 0.358-3.[address] [facility] Comment on above: Performed By: #### M G, TSH, LIPID, CMP #### [facility] [address] [place] [address] Dr. Rayshawn Clark Ambulatory Visit Summaryon 0 12-22-2022 Ambulatory Visit Summary HARRIETT THAKKAR :1965 Visit Date:12/22/2022 Ambulatory Visit Instructions Your Diagnosis BMI 38.0-38.9,adult Class 1 obesity due to excess calories in adult Adult general medical exam Your Care Team Attending Physician - GLADYS GARCIA MD Primary Care Physician - GLADYS GARCIA MD This Is Your Medications List Misc Prescription ([facility] Prescription) Misc Prescription ([facility] Prescription) aspirin (aspirin 81 mg Oral [...] Contact You Regarding These Appointments [facility] [place] Referral, Cardiology, HX OF ORTHOSTATIC [...] Cardiac contusion and hemopericardium\. br\ COVID-19\.br\ \.br\ [facility] Family Medicine Office/Clini c Noteon 12-22-2022 [...] mg, SubCutane (more content not included)... Normal [facility] Comment on above: Result Comment: Elec tronically Signed By: STACIE KRAUSE, GLADYS Mc.jesenia\Date and Time Signed: 12/22/22 09:57 EDT Laboratory - CoagulationOrde red By: Nimo Fu on 12-15-2022 PT Coag (PPP) [Time] 47.1 s 9.0-12.9 [facility] Platelet poor plasma interna tional normalized ratio (INR) by coagulation assay (relatOrdered By: Nimo Fu on 12-15-2022 INR Coag (PPP) [Relative time] 4.1 {INR} [facility] Comment on above: INR Therapeutic Rang [...] 3 - 4.5 Prothrombin Time INRon 12-15 Prothrombin Time INR [employer] Other Prothrombin Time INR 3.0/3.7 [employer] Other Prothrombin Time INRon 12-02 INR Coag (PPP) [Relative time] 3.5 {INR} [employer] Other Prothrombin Time INR [employer] Other Prothrombin Time INRon 11-01 INR Coag (PPP) [Relative time] 3.2 {INR} [employer] Other Prothrombin Time INR [employer] Other Prothrombin Time INRon 10-04 INR Coag (PPP) [Relative time] 1.6 {INR} [employer] Other Prothrombin Time INR [employer] Other Cardiovasc Arrhythmia Result son 08-05-2022 Cardiovasc Arrhythmia Results Reason For Visit Event Monitor: HARRIETT is here for the application of a 30 day event monitor in office., Diagnosis: I47.29 Ordering Physician: Dr. Angel Griggs MD Enrollment sent to: [employer] Monitor number [id number] applied. Strip from [facility] received for Dr. Angel Griggs MD [...] tachycardia, nonsustained (427.1) (I47.29) Future Appointments Date/TimeProviderSpe [facility]/11/2023 09:30 Angel Webster, [id number] [facility] 2 [address] 250 DO Signatures Electronically signed by : Meena Moya L.P.N.; Sep 01 2022 10:04AM EST (Author) Electronically signed by : Angel Griggs MD; Sep 08 2022 2:41PM EST (Author) Normal [employer] Prothrombin Time INRon 07-26 INR Coag (PPP) [Relative time] 2.3 {INR} [place] [employer] Other Prothrombin Time INR Nort [employer] Other LIPID PROFILEon 07-17-2022 CHOL-HDL RATIO NORM SEE BELOW Normal [facility] Comment on above: Result Comment: 3.3 - 4.4 LOW RISK 4.4 - 7.1 AVERAGE RISK 7.1 - 11.0 MODERATE RISK >11.0 HIGH RISK Performed By: #### L IPID #### [facility] [address] [place] [address] Dr. Rayshawn Clark Cholesterol [Mass/Vol] 106 mg/dL Normal <=200 [facility] Comment on above: Performed By: #### L IPID #### [facility] [address] [address] [address] Rayshawn Clark Cholesterol in HDL [Mass/Vol] 25 mg/dL Critically low 40-60 [facility] Comment on above: Performed By: #### L IPID #### [facility] [address] [place] [address] Dr. Rayshawn Clark Cholesterol in LDL [Mass/Vol] 59.2 mg/dL Normal [facility] Comment on above: Performed By: #### L IPID #### [facility] [address] [place] [address] Dr. Rayshawn Clark Cholesterol.total/Ch olesterol in HDL [Mass ratio] 4.2 {ratio} Normal [facility] Comment on above: Performed By: #### L IPID #### [facility] [address] [place] [address] Dr. Rayshawn Clark HDL NORMAL > or = 60 mg/dl - LOW CARDIOVASCULAR RISK <40 mg/dl - HIGH CARDIOVASCULAR RISK Normal [facility] Comment on above: Performed By: #### L IPID #### [facility] [address] [place] [address] Dr. Rayshawn Clark LDL CALC NORMAL SEE BELOW Normal [facility] Comment on above: Result Comment: <100 mg/dl OPTIMAL 100 - 129 mg/dl NEAR OR ABOVE OPTIMAL 130 - 159 mg/dl BORDERLINE HIGH 160 - 189 mg/dl HIGH >190 mg/dl VERY HIGH Performed By: #### L IPID #### [facility] [address] [place] [address] Dr. Rayshawn Clark Triglyceride [Mass/Vol] 109 mg/dL Normal <=150 [facility] Comment on above: Performed By: #### L IPID #### [facility] [address] [place], [place] [address] Dr. Rayshawn Clark VLDL CALC 21.8 mg/dL Normal [facility] Comment on above: Performed By: #### L IPID #### [facility] [address] [place], [place] [address] Dr. Rayshawn Clark Office Visit (Cardiology)on 07-12-2022 Follow-up visit Diagnoses/Problems Assessed Paroxysmal atrial fibrillation (427.31) (I48.0) Ischemic cardiomyopathy (414.8) (I25.5) Orthostatic hypotension (458.0) (I95.1) History of PR (myocardial infarction) (412) (I25.2) Coronary artery disease involving iqugmiut coronary artery of iqugmiut heart without angina pectoris (414.01) (I25.10) Anticoagulated [...] - Retrospective Authorization; Done: 12Jul2022 History of PR (myocardial infarction), Hyperlipidemia Lipid Panel; Status:Active - [...] of your visit. Obtain holter results from [facility]- March 2022 Pt instructed to change [...] a visit to the emergency department at [facility] for palpitations and was found to be [...] monitor done in March [address] [facility]. I will try to r (more content not included)... Normal [employer] Prothrombin Time INRon 06-21 INR Coag (PPP) [Relative time] 1.9 {INR} [employer] Other Prothrombin Time INR [employer] Other Prothrombin Time INRon 05-17 INR Coag (PPP) [Relative time] 3.1 {INR} [employer] Other Prothrombin Time INR [employer] Other Bacteria identified Aer cx N om (Unsp spec)Ordered By: RO Bustos on 05-12-2022 Superficial Wound Culture Escherichia coli [facility] Prothrombin Time INRon 04-07 INR Coag (PPP) [Relative time] 2.3 {INR} [employer] Other Prothrombin Time INR [employer] Other Prothrombin Time INRon 03-10 INR Coag (PPP) [Relative time] 2.7 {INR} [employer] Other Prothrombin Time INR [employer] Other Activated partial thrombopla stin time (aPTT) in platelet poor plasma by coagulation aOrdered By: Lucila Coleman on 03-01-2022 aPTT Coag (PPP) [Time] 36.5 s 25.1-36.5 [facility] Basophils Auto (Bld) [#/Vol] Ordered By: Lucila Coleman on 03-01-2022 Basophils (Bld) [#/Vol] 0.0 10*3/uL 0.0-0.2 [facility] Basophils/100 WBC Auto (Bld) Ordered By: Lucila Coleman on 03-01-2022 Basophils/100 WBC (Bld) 0.6 % . [facility] Blood hemoglobin measurement (mass/volume)Ordered By: Lucila Coleman on 03-01-2022 Hemoglobin (Bld) [Mass/Vol] 15.1 g/dL 13.0-17.0 [facility] Blood leukocytes automated c ount (number/volume)Ordered By: Lucila Coleman on 03-01-2022 WBC (Bld) [#/Vol] 6.5 10*3/uL 4.5-11.0 [facility] Body fluid albumin measureme nt (mass/volume)Ordered By: Lucila Coleman on 03-01-2022 Albumin (Body fld) [Mass/Vol] 3.3 g/dL 3.2-5.5 [facility] Creatinine and Glomerular fi ltration rate.predicted panel (S/P/Bld)Ordered By: Lucila Coleman on 03-01-2022 Creatinine [Mass/Vol] 1.13 mg/dL 0.64-1.27 [facility] Eosinophils Auto (Bld) [#/Vo l]Ordered By: Lucila Coleman on 03-01-2022 Eosinophils (Bld) [#/Vol] 0.2 10*3/uL 0.0-0.45 [facility] Eosinophils/100 WBC Auto (Bl d)Ordered By: Lucila Coleman on 03-01-2022 Eosinophils/100 WBC (Bld) 2.5 % . [facility] Erythrocyte distribution wid th Auto (RBC) [Ratio]Ordered By: Lucila Coleman on 03-01-2022 Erythrocyte distribution width (RBC) [Ratio] 14.0 % 12.0-14.8 [facility] Estimated glomerular filtrat ion rate (GFR) non- AmericanOrdered By: Lucila Coleman on 03-01-2022 GFR/1.73 sq M.predicted among non-blacks MDRD (S/P/Bld) [Vol rate/Area] > 60 mL/Min [facility] Globulin Calc (S) [Mass/Vol] Ordered By: Lucila Coleman on 03-01-2022 Globulin (S) [Mass/Vol] 2.5 g/dL [facility] Hematocrit Auto (Bld) [Volum e fraction]Ordered By: Lucila Coleman on 03-01-2022 Hematocrit (Bld) [Volume fraction] 43.1 % 38.8-50.0 [facility] - Chemistry and C hemistry - challengeOrdered By: Lucila Coleman on 03-01-2022 Magnesium [Mass/Vol] 1.1 mg/dL 1.6-2.6 [facility] Natriuretic peptide B (Bld) [Mass/Vol] 118.0 pg/mL 5-100 [facility] Laboratory - CoagulationOrde red By: Lucila Coleman on 03-01-2022 PT Coag (PPP) [Time] 23.9 s 9.0-12.9 [facility] - Hematology and Cell countsOrdered By: Lucila Coleman on 03-01-2022 Nucleated RBC/100 WBC (Bld) [Ratio] 0.1 % 0-0.5 [facility] Lymphocytes Auto (Bld) [#/Vo l]Ordered By: Lucila Coleman on 03-01-2022 Lymphocytes (Bld) [#/Vol] 1.4 10*3/uL 1.00-4.8 [facility] Lymphocytes/100 WBC Auto (Bl d)Ordered By: Lucila Coleman on 03-01-2022 Lymphocytes/100 WBC (Bld) 21.1 % . [facility] MCH Auto (RBC) [Entitic mass ]Ordered By: Lucila Coleman on 03-01-2022 MCH (RBC) [Entitic mass] 31.9 pg 27.5-35.2 [facility] MCHC Auto (RBC) [Mass/Vol]Or dered By: Lucila Coleman on 03-01-2022 MCHC (RBC) [Mass/Vol] 35.0 g/dL 32.5-35.6 [facility] MCV Auto (RBC) [Entitic vol] Ordered By: Lucila Coleman on 03-01-2022 MCV (RBC) [Entitic vol] 91.2 fL 83.5-101 [facility] Monocytes Auto (Bld) [#/Vol] Ordered By: Lucila Coleman on 03-01-2022 Monocytes (Bld) [#/Vol] 0.6 10*3/uL 0.0-0.8 [facility] Monocytes/100 WBC Auto (Bld) Ordered By: Lucila Coleman on 03-01-2022 Monocytes/100 WBC (Bld) 8.9 % . [facility] Neutrophils Auto (Bld) [#/Vo l]Ordered By: Lucila Coleman on 03-01-2022 Neutrophils (Bld) [#/Vol] 4.3 10*3/uL 1.8-7.7 [facility] Neutrophils/100 WBC Auto (Bl d)Ordered By: Lucila Coleman on 03-01-2022 Neutrophils/100 WBC (Bld) 66.9 % . [facility] No Panel InformationOrdered By: Lucila Coleman on 03-01-2022 Estimated GFR () > 60 mL/Min [facility] Comment on above: GFR estimated refere nce range: According to KDOQI guidelines, <60 ml/min/1.73m2 is sufficient to diagnose a patient with chronic kidney disease. Pharmacy Creatinine Clearance (Chem 104.57 [facility] Platelet mean volume Auto (B ld) [Entitic vol]Ordered By: Lucila Coleman on 03-01-2022 Platelet mean volume (Bld) [Entitic vol] 9.3 fL 6.6-10.1 [facility] Platelet poor plasma interna tional normalized ratio (INR) by coagulation assay (relatOrdered By: Lucila Coleman on 03-01-2022 INR Coag (PPP) [Relative time] 2.1 {INR} [facility] Comment on above: INR Therapeutic Rang [...] 03-01-2022 Platelets (Bld) [#/Vol] 128 10*3/uL 150-450 [facility] Protein [Mass/volume] in Ser um or PlasmaOrdered By: Lucila Coleman on 03-01-2022 Protein [Mass/Vol] 5.8 g/dL 6.1-7.9 [facility] RBC Auto (Bld) [#/Vol]Ordere d By: Lucila Coleman on 03-01-2022 RBC (Bld) [#/Vol] 4.73 10*6/uL 3.90-5.60 [facility] Serum or plasma alanine rodriguez otransferase measurement without P-5'-P (enzymatic activiOrdered By: Lucila Coleman on 03-01-2022 ALT No additional P-5'-P [Catalytic activity/Vol] 30 U/L 10-60 [facility] Serum or plasma albumin/glob ulin mass ratioOrdered By: Lucila Coleman on 03-01-2022 Albumin/Globulin [Mass ratio] 1.3 {ratio} [facility] Serum or plasma alkaline kristal sphatase measurement (enzymatic activity/volume)Ordered By: Lucila Coleman on 03-01-2022 ALP [Catalytic activity/Vol] 74 U/L 32-92 [facility] Serum or plasma aspartate am inotransferase measurement (enzymatic activity/volume)Ordered By: Lucila Coleman on 03-01-2022 AST [Catalytic activity/Vol] 22 U/L 10-42 [facility] Serum or plasma calcium jose urement (mass/volume)Ordered By: Lucila Coleman on 03-01-2022 Calcium [Mass/Vol] 8.8 mg/dL 8.2-10.2 [facility] Serum or plasma chloride payal surement (moles/volume)Ordered By: Lucila Coleman on 03-01-2022 Chloride [Moles/Vol] 99 mmol/L 95-114 [facility] Serum or plasma glucose jose urement (mass/volume)Ordered By: Lucila Coleman on 03-01-2022 Glucose [Mass/Vol] 259 mg/dL 70-100 [facility] Comment on above: ADA recommended refe rence range Random Glucose Reference Range is dependent on time and content of last meal. Glucose of more than 200 mg/dL in a nonstressed, ambulatory subject supports the diagnosis of Diabetes Mellitus. Serum or plasma potassium me asurement (moles/volume)Ordered By: Lucila Coleman on 03-01-2022 Potassium [Moles/Vol] 3.4 mmol/L 3.5-5.1 [facility] Serum or plasma sodium measu rement (moles/volume)Ordered By: Lucila Coleman on 03-01-2022 Sodium [Moles/Vol] 140 mmol/L 136-146 [facility] Serum or plasma total biliru bin measurement (mass/volume)Ordered By: Lucila Coleman on 03-01-2022 Bilirubin [Mass/Vol] 0.6 mg/dL 0.3-1.2 [facility] Serum or plasma total carbon dioxide measurement (moles/volume)Ordered By: Lucial Coleman on 03-01-2022 CO2 [Moles/Vol] 28.6 mmol/L 22.0-30.0 [facility] Serum or plasma urea nitroge n measurement (mass/volume)Ordered By: Lucila Coleman on 03-01-2022 Urea nitrogen [Mass/Vol] 21 mg/dL 9-23 [facility] Troponin I.cardiac [Mass/vol ume] in Serum or Plasma by High sensitivity methodOrdered By: Lucila Coleman on 03-01-2022 Troponin I.cardiac High sensitivity method [Mass/Vol] 8 pg/mL 0-20 [facility] Prothrombin Time INRon 02-10 INR Coag (PPP) [Relative time] 2.4 {INR} [employer] Other Prothrombin Time INR [place] [employer] Other Prothrombin Time INRon 01-13 INR Coag (PPP) [Relative time] 3.0 {INR} [employer] Other Prothrombin Time INR [facility] [employer] Other Prothrombin Time INRon 12-16 INR Coag (PPP) [Relative time] 2.7 {INR} [place] [employer] Other Prothrombin Time INR [facility] [employer] Other Tobacco Screening.on 022 Adult depression screening assessment No -[facility] [facility] [address] DO Work Phone: Tobacco use status CPHS b) No -[facility] [facility] [address] DO Work Phone: Prothrombin Time INRon 11-19 INR Coag (PPP) [Relative time] 3.2 {INR} [place] [employer] Other Prothrombin Time INR [facility] [employer] Other Prothrombin Time INRon 10-20 INR Coag (PPP) [Relative time] 1.7 {INR} [place] [employer] Other Prothrombin Time INR [facility] [employer] Other Prothrombin Time INRon 09-22 INR Coag (PPP) [Relative time] 2.7 {INR} [employer] Other Prothrombin Time INR [facility] [employer] Other Prothrombin Time INRon 08-24 INR Coag (PPP) [Relative time] 2.9 {INR} [employer] Other Prothrombin Time INR [facility] [employer] Other Prothrombin Time INRon 07-22 INR Coag (PPP) [Relative time] 1.6 {INR} [employer] Other Prothrombin Time INR [facility] [employer] Other Prothrombin Time INRon 07-15 INR Coag (PPP) [Relative time] 3.4 {INR} [employer] Other Prothrombin Time INR [facility] [employer] Other Prothrombin Time INRon 06-24 INR Coag (PPP) [Relative time] 3.5 {INR} [facility] [employer] Other Prothrombin Time INR [facility] [employer] Other Vital Signs Date Time Vital Sign Value Performing Clinician Facility 12-16-2023 15:07-0400 Body mass index (BMI) [Ratio] 36.72 kg/m2 Lior Villeda MD Work Phone: [facility] 12-16-2023 15:07-0400 Body weight 129.73 kg Lior Villeda MD Work Phone: [facility] 12-16-2023 15:07-0400 Diastolic blood pressure 58 mm[Hg] Lior Villeda MD Work Phone: [facility] 12-16-2023 15:07-0400 Heart rate 96 /min Lior Villeda MD Work Phone: [facility] 12-16-2023 15:07-0400 Respiratory rate 16 /min Lior Villeda MD Work Phone: [facility] 12-16-2023 15:07-0400 SaO2% (BldA) [Mass fraction] 98 % Lior Villeda MD Work Phone: [facility] 12-16-2023 15:07-0400 Systolic blood pressure 100 mm[Hg] Lior Villeda MD Work Phone: [facility] 12-09-2023 15:05-0400 Body temperature 98 [degF] MD Toby Amador Work Phone: [facility] 12-09-2023 15:05-0400 Diastolic blood pressure 86 mm[Hg] MD Toby Amador Work Phone: [facility] 12-09-2023 15:05-0400 Heart rate 71 /min MD Toby Amador Work Phone: [facility] 12-09-2023 15:05-0400 Respiratory rate 18 /min MD Toby Amador Work Phone: [facility] 12-09-2023 15:05-0400 SaO2% (BldA) [Mass fraction] 93 % MD Toby Amador Work Phone: [facility] 12-09-2023 15:05-0400 Systolic blood pressure 132 mm[Hg] MD Toby Amador Work Phone: [facility] 12-09-2023 05:15-0400 Body weight 133.4 kg MD Toby Amador Work Phone: [facility] 12-08-2023 14:14-0400 Body height 187.96 cm MD Toby Amador Work Phone: [facility] 12-07-2023 15:02-0400 Diastolic blood pressure 58 mm[Hg] MD Toby Amador Work Phone: [facility] 12-07-2023 15:02-0400 Heart rate 72 /min MD Toby Amador Work Phone: [facility] 12-07-2023 15:02-0400 Respiratory rate 20 /min MD Toby Amador Work Phone: [facility] 12-07-2023 15:02-0400 Systolic blood pressure 96 mm[Hg] MD Toby Amador Work Phone: [facility] 12-07-2023 12:37-0400 SaO2% (BldA) [Mass fraction] 93 % MD Toby Amador Work Phone: [facility] 12-07-2023 11:56-0400 Body height 187.96 cm MD Toby Amador Work Phone: [facility] 12-07-2023 11:56-0400 Body temperature 98 [degF] MD Toby Amador Work Phone: [facility] 12-07-2023 11:56-0400 Body weight 136 kg MD Toby Amador Work Phone: [facility] 11-30-2023 08:32-0400 Body height 187.96 cm MD Toby Amador Work Phone: [facility] 11-30-2023 08:32-0400 Body weight 136.4 kg MD Toby Amador Work Phone: [facility] 11-10-2023 13:54-0500 Body height 188 cm [facility] [place] 11-10-2023 13:54-0500 Body mass index (BMI) [Ratio] 38.9 kg/m2 [facility] [place] 11-10-2023 13:54-0500 Body weight 137.44 kg [facility] [place] 11-10-2023 13:54-0500 Diastolic blood pressure 76 mm[Hg] [facility] [place] 11-10-2023 13:54-0500 Heart rate 71 /min [facility] [place] 11-10-2023 13:54-0500 Systolic blood pressure 102 mm[Hg] [facility] [place] 10-30-2023 12:00-0500 Body temperature 97.7 [degF] MD Gladys Garcia Work Phone: [facility] 10-30-2023 12:00-0500 Diastolic blood pressure 75 mm[Hg] MD Gladys Garcia Work Phone: [facility] 10-30-2023 12:00-0500 Heart rate 71 /min MD Gladys Garcia Work Phone: [facility] 10-30-2023 12:00-0500 Respiratory rate 18 /min MD Gladys Garcia Work Phone: [facility] 10-30-2023 12:00-0500 SaO2% (BldA) [Mass fraction] 97 % MD Gladys Garcia Work Phone: [facility] 10-30-2023 12:00-0500 Systolic blood pressure 110 mm[Hg] MD Gladys Garcia Work Phone: [facility] 10-30-2023 06:00-0500 Body weight 134.7 kg MD Gladys Garcia Work Phone: [facility] 10-28-2023 18:51-0500 Body height 187.96 cm MD Gladys Garcia Work Phone: [facility] 10-28-2023 18:51-0500 Body temperature 97.9 [degF] MD Gladys Garcia Work Phone: [facility] 10-28-2023 18:51-0500 Body weight 135.8 kg MD Gladys Garcia Work Phone: [facility] 10-28-2023 18:51-0500 Diastolic blood pressure 66 mm[Hg] MD Gladys Garcia Work Phone: [facility] 10-28-2023 18:51-0500 Heart rate 67 /min MD Gladys Garcia Work Phone: [facility] 10-28-2023 18:51-0500 Respiratory rate 18 /min MD Gladys Garcia Work Phone: [facility] 10-28-2023 18:51-0500 SaO2% (BldA) [Mass fraction] 95 % MD Gladys Garcia Work Phone: [facility] 10-28-2023 18:51-0500 Systolic blood pressure 98 mm[Hg] MD Gladys Garcia Work Phone: [facility] 10-28-2023 10:38-0500 Diastolic blood pressure 40 mm[Hg] [facility] [place] 10-28-2023 10:38-0500 Systolic blood pressure 62 mm[Hg] [facility] [place] 10-28-2023 10:37-0500 Body height 188 cm [facility] [place] 10-28-2023 10:37-0500 Body mass index (BMI) [Ratio] 38.39 kg/m2 [facility] [place] 10-28-2023 10:37-0500 Body weight 135.63 kg [facility] [place] 10-28-2023 10:37-0500 Heart rate 121 /min [facility] [place] 10-21-2023 08:26-0500 Body height [address] 10-21-2023 08:26-0500 Body mass index (BMI) [Ratio] 38.52 kg/m2 [address] 10-21-2023 08:26-0500 Body weight 136.[address] 10-21-2023 08:26-0500 Diastolic blood pressure 60 mm[Hg] [address] 10-21-2023 08:26-0500 Systolic blood pressure 108 mm[Hg] [address] 10-20-2023 12:45-0500 Body height 187.96 cm MD Gladys Garcia Work Phone: [facility] 10-20-2023 12:45-0500 Body weight 136 kg MD Gladys Garcia Work Phone: [facility] 10-18-2023 09:30-0500 Diastolic blood pressure 54 mm[Hg] Angel Griggs MD Work Phone: [facility] 10-18-2023 09:30-0500 Heart rate 107 /min Angel Griggs MD Work Phone: [facility] 10-18-2023 09:30-0500 Systolic blood pressure 98 mm[Hg] Angel Griggs MD Work Phone: [facility] 10-18-2023 09:29-0500 Body height 188 cm Angel Griggs MD Work Phone: [facility] 10-18-2023 09:29-0500 Body mass index (BMI) [Ratio] 38.52 kg/m2 Angel Griggs MD Work Phone: [facility] 10-18-2023 09:29-0500 Body weight 136.08 kg Angel Griggs MD Work Phone: [facility] 09-14-2023 21:10-0500 Diastolic blood pressure 82 mm[Hg] MD Gladys Garcia Work Phone: [facility] 09-14-2023 21:10-0500 Systolic blood pressure 168 mm[Hg] MD Gladys Garcia Work Phone: [facility] 09-14-2023 20:17-0500 Heart rate 103 /min MD Gladys Garcia Work Phone: [facility] 09-14-2023 20:15-0500 Respiratory rate 20 /min MD Gladys Garcia Work Phone: [facility] 09-14-2023 20:15-0500 SaO2% (BldA) [Mass fraction] 92 % MD Gladys Garcia Work Phone: [facility] 09-14-2023 19:47-0500 Body height 187.96 cm MD Gladys Garcia Work Phone: [facility] 09-14-2023 19:47-0500 Body temperature 98.6 [degF] MD Gladys Garcia Work Phone: [facility] 09-14-2023 19:47-0500 Body weight 138.9 kg MD Gladys Garcia Work Phone: [facility] 08-31-2023 16:04-0500 Body temperature 97.7 [degF] Lior Villeda MD Work Phone: [facility] 08-31-2023 16:04-0500 Diastolic blood pressure 63 mm[Hg] Lior Villeda MD Work Phone: [facility] 08-31-2023 16:04-0500 Heart rate 88 /min Lior Villeda MD Work Phone: [facility] 08-31-2023 16:04-0500 SaO2% (BldA) [Mass fraction] 91 % Lior Villeda MD Work Phone: [facility] 08-31-2023 16:04-0500 Systolic blood pressure 113 mm[Hg] Lior Villeda MD Work Phone: [facility] 08-31-2023 11:37-0500 Respiratory rate 20 /min Lior Villeda MD Work Phone: [facility] 08-29-2023 06:00-0500 Body height 188 cm Lior Villeda MD Work Phone: [facility] 08-29-2023 06:00-0500 Body mass index (BMI) [Ratio] 41.33 kg/m2 Lior Villeda MD Work Phone: [facility] 08-29-2023 06:00-0500 Body weight 146 kg Lior Villeda MD Work Phone: [facility] 07-12-2023 10:17-0400 Body height 188 cm Angel Griggs MD Work Phone: [facility] 07-12-2023 10:17-0400 Body mass index (BMI) [Ratio] 39.03 kg/m2 Angel Griggs MD Work Phone: [facility] 07-12-2023 10:17-0400 Body weight 137.89 kg Angel Griggs MD Work Phone: [facility] 07-12-2023 10:17-0400 Diastolic blood pressure 82 mm[Hg] Angel Griggs MD Work Phone: [facility] 07-12-2023 10:17-0400 Heart rate 83 /min Angel Griggs MD Work Phone: [facility] 07-12-2023 10:17-0400 Systolic blood pressure 108 mm[Hg] Angel Griggs MD Work Phone: [facility] 06-30-2023 07:28-0400 Body temperature 97.5 [degF] Lior Villeda MD Work Phone: [facility] 06-30-2023 07:28-0400 Diastolic blood pressure 83 mm[Hg] Lior Villeda MD Work Phone: [facility] 06-30-2023 07:28-0400 Heart rate 81 /min Lior Villeda MD Work Phone: [facility] 06-30-2023 07:28-0400 SaO2% (BldA) [Mass fraction] 90 % Lior Villeda MD Work Phone: [facility] 06-30-2023 07:28-0400 Systolic blood pressure 136 mm[Hg] Lior Villeda MD Work Phone: [facility] 06-30-2023 03:15-0400 Respiratory rate 18 /min Lior Villeda MD Work Phone: [facility] 06-29-2023 13:00-0400 Body height 188 cm iLor Villeda MD Work Phone: [facility] 06-29-2023 13:00-0400 Body mass index (BMI) [Ratio] 38.44 kg/m2 Lior Villeda MD Work Phone: [facility] 06-29-2023 13:00-0400 Body weight 135.8 kg Lior Villead MD Work Phone: [facility] 05-24-2023 14:10-0400 Heart rate 101 /min Toby Quachr Work Phone: WA-Jmyxbltpti-Zilm a Work Phone: 05-24-2023 14:04-0400 Body height 190.5 cm Toby A Naderer Work Phone: CD-Nelewqbarw-Stsi a Work Phone: 05-24-2023 14:04-0400 Body mass index (BMI) [Ratio] 38.62 kg/m2 Toby Cooper Naderer Work Phone: FH-Snfupjanxe-Vfzq a Work Phone: 05-24-2023 14:04-0400 Body surface area Derived from formula 2.64 m2 Toby A Naderer Work Phone: RE-Twuunlrsxx-Hxpj a Work Phone: 05-24-2023 14:04-0400 Body weight 140.16 kg Toby A Naderer Work Phone: PK-Femhfcmcos-Cpbm a Work Phone: 05-24-2023 14:04-0400 Diastolic blood pressure 60 mm[Hg] Toby A Naderer Work Phone: DC-Xkbvoakwqp-Vmwt a Work Phone: 05-24-2023 14:04-0400 SaO2% (BldA) [Mass fraction] 97 % Toby A Naderer Work Phone: YF-Duhwagmsye-Pbvw a Work Phone: 05-24-2023 14:04-0400 Systolic blood pressure 108 mm[Hg] Toby A Naderer Work Phone: XG-Zqwnzmdbgs-Yakm a Work Phone: 05-17-2023 09:40-0400 Diastolic blood pressure 86 mm[Hg] Toby A Naderer Work Phone: GC-Vyfxlwbfrg-Caio a Work Phone: 05-17-2023 09:40-0400 Diastolic blood pressure 56 mm[Hg] Toby A Naderer Work Phone: HG-Ljwrimjdfs-Palo a Work Phone: 05-17-2023 09:40-0400 Systolic blood pressure 124 mm[Hg] Toby A Naderer Work Phone: CY-Jvuwhwbgkr-Acsd a Work Phone: 05-17-2023 09:40-0400 Systolic blood pressure 90 mm[Hg] Toby Cooper Naderer Work Phone: NR-Qbcxsopgce-Qndw a Work Phone: 05-17-2023 09:40-0400 90 1 Toby Cooper Naderer Work Phone: KC-Vxurcbotwu-Xkjs a Work Phone: Comment on above: [employer] 05-17-2023 09:40-0400 91 1 Toby Cooper Naderer Work Phone: OB-Ymbslpmabu-Peqz a Work Phone: Comment on above: [employer] 05-17-2023 09:39-0400 Body height 190.5 cm Toby Cooper Naderer Work Phone: IM-Qgknzmhszl-Qxdj a Work Phone: 05-17-2023 09:39-0400 Body mass index (BMI) [Ratio] 37.62 kg/m2 Toby Cooper Naderer Work Phone: UB-Srawtsiszr-Wevt a Work Phone: 05-17-2023 09:39-0400 Body surface area Derived from formula 2.61 m2 Toby Cooper Naderer Work Phone: CY-Phztbpefrq-Yiqg a Work Phone: 05-17-2023 09:39-0400 Body weight 136.53 kg Toby Cooper Naderer Work Phone: UH-Hyzskqpujx-Njry a Work Phone: 05-17-2023 09:39-0400 Diastolic blood pressure 86 mm[Hg] Toby Cooper Naderer Work Phone: EY-Gguvhhywje-Xyja a Work Phone: 05-17-2023 09:39-0400 Heart rate 91 /min Toby Cooper Naderer Work Phone: JL-Renqakkclv-Irps a Work Phone: 05-17-2023 09:39-0400 Systolic blood pressure 124 mm[Hg] Toby Cooper Naderer Work Phone: XC-Wrjuivfxrg-Chzb a Work Phone: 04-04-2023 18:38-0400 Body temperature 98.2 [degF] MD Gladys Garcia Work Phone: [facility] 04-04-2023 18:38-0400 Diastolic blood pressure 62 mm[Hg] MD Gladys Garcia Work Phone: [facility] 04-04-2023 18:38-0400 Heart rate 67 /min MD Gladys Garcia Work Phone: [facility] 04-04-2023 18:38-0400 Respiratory rate 20 /min MD Gladys Garcia Work Phone: [facility] 04-04-2023 18:38-0400 SaO2% (BldA) [Mass fraction] 98 % MD Gladys Garcia Work Phone: [facility] 04-04-2023 18:38-0400 Systolic blood pressure 112 mm[Hg] MD Gladys Garcia Work Phone: [facility] 04-04-2023 12:57-0400 Body height 187.96 cm MD Gladys Garcia Work Phone: [facility] 04-04-2023 06:00-0400 Body weight 131.5 kg MD Gladys Garcia Work Phone: [facility] 04-03-2023 00:00-0400 45 1 Gladys Garcia Work Phone: [facility] 250 DO Work Phone: Comment on above: [id number] 04-02-2023 12:30-0400 Diastolic blood pressure 73 mm[Hg] MD Gladys Garcia Work Phone: [facility] 04-02-2023 12:30-0400 Heart rate 86 /min MD Gladys Garcia Work Phone: [facility] 04-02-2023 12:30-0400 Respiratory rate 18 /min MD Gladys Garcia Work Phone: [facility] 04-02-2023 12:30-0400 SaO2% (BldA) [Mass fraction] 97 % MD Gladys Garcia Work Phone: [facility] 04-02-2023 12:30-0400 Systolic blood pressure 116 mm[Hg] MD Gladys Garcia Work Phone: [facility] 04-02-2023 09:46-0400 Body temperature 98.1 [degF] MD Gladys Garcia Work Phone: [facility] 04-02-2023 09:40-0400 Body height 187.96 cm MD Gladys Garcia Work Phone: [facility] 04-02-2023 09:40-0400 Body weight 132.9 kg MD Gladys Garcia Work Phone: [facility] 01-11-2023 09:56-0400 Diastolic blood pressure 78 mm[Hg] Gladys Garcia Work Phone: [facility] 250 DO Work Phone: 01-11-2023 09:56-0400 Diastolic blood pressure 76 mm[Hg] Gladys Garcia Work Phone: [facility] 250 DO Work Phone: 01-11-2023 09:56-0400 Systolic blood pressure 110 mm[Hg] Gladys Garcia Work Phone: [facility] 250 DO Work Phone: 01-11-2023 09:56-0400 Systolic blood pressure 106 mm[Hg] Galdys Garcia Work Phone: [facility] 250 DO Work Phone: 01-11-2023 09:50-0400 Heart rate 87 /min Gladys Garcia Work Phone: [facility] 250 DO Work Phone: 01-11-2023 09:48-0400 Body height 190.5 cm Gladys Garcia Work Phone: [facility] [address] DO Work Phone: 01-11-2023 09:48-0400 Body mass index (BMI) [Ratio] 37 kg/m2 Gladys Garcia Work Phone: [facility] 250 DO Work Phone: 01-11-2023 09:48-0400 Body surface area Derived from formula 2.59 m2 Gladys Garcia Work Phone: [facility] 250 DO Work Phone: 01-11-2023 09:48-0400 Body weight 134.27 kg Gladys Garcia Work Phone: [facility] 250 DO Work Phone: 12-15-2022 15:38-0400 Body temperature 97.7 [degF] MD Gladys Garcia Work Phone: [facility] 12-15-2022 15:38-0400 Diastolic blood pressure 87 mm[Hg] MD Gladys Garcia Work Phone: [facility] 12-15-2022 15:38-0400 Heart rate 91 /min MD Gladys Garcia Work Phone: [facility] 12-15-2022 15:38-0400 Respiratory rate 18 /min MD Gladys Garcia Work Phone: [facility] 12-15-2022 15:38-0400 SaO2% (BldA) [Mass fraction] 98 % MD Gladys Garcia Work Phone: [facility] 12-15-2022 15:38-0400 Systolic blood pressure 139 mm[Hg] MD Gladys Garcia Work Phone: [facility] 12-15-2022 15:34-0400 Body height 187.96 cm MD Gladys Garcia Work Phone: [facility] 12-15-2022 15:34-0400 Body weight 135.4 kg MD Gladys Garcia Work Phone: [facility] 07-17-2022 14:47-0400 59.2 1 Gladys Garcia Work Phone: [facility] 250 DO Work Phone: Comment on above: [facility] 07-12-2022 15:43-0400 Body height 190.5 cm Gladys Garcia Work Phone: [facility] 250 DO Work Phone: 07-12-2022 15:43-0400 Body mass index (BMI) [Ratio] 38 kg/m2 Gladys Garcia Work Phone: [facility] 250 DO Work Phone: 07-12-2022 15:43-0400 Body surface area Derived from formula 2.62 m2 Gladys Garcia Work Phone: [facility] 250 DO Work Phone: 07-12-2022 15:43-0400 Body weight 137.89 kg Gladys Garcia Work Phone: [facility] 250 DO Work Phone: 07-12-2022 15:43-0400 Diastolic blood pressure 78 mm[Hg] Gladys Garcia Work Phone: [facility] [facility] DO Work Phone: 07-12-2022 15:43-0400 Heart rate 94 /min Gladys Garcia Work Phone: [facility] 250 DO Work Phone: 07-12-2022 15:43-0400 Systolic blood pressure 102 mm[Hg] Gladys Garcia Work Phone: [facility] [address] DO Work Phone: 03-01-2022 21:27-0400 Diastolic blood pressure 90 mm[Hg] MD Gladys Garcia Work Phone: [facility] 03-01-2022 21:27-0400 Heart rate 84 /min MD Gladys Garcia Work Phone: [facility] 03-01-2022 21:27-0400 Respiratory rate 17 /min MD Gladys Garcia Work Phone: [facility] 03-01-2022 21:27-0400 SaO2% (BldA) [Mass fraction] 93 % MD Gladys Garcia Work Phone: [facility] 03-01-2022 21:27-0400 Systolic blood pressure 141 mm[Hg] MD Gladys Garcia Work Phone: [facility] 03-01-2022 19:14-0400 Body height 187.96 cm MD Gladys Garcia Work Phone: [facility] 03-01-2022 19:14-0400 Body mass index (BMI) [Ratio] 38.5 kg/m2 MD Gladys Garcia Work Phone: [facility] 03-01-2022 19:14-0400 Body temperature 97.8 [degF] MD Gladys Garcia Work Phone: [facility] 03-01-2022 19:14-0400 Body weight 136.07 kg MD Gladys Garcia Work Phone: [facility] 12-16-2021 09:59-0400 Body height 190.5 cm Gladys Garcia Work Phone: [facility] [address] DO Work Phone: 03-30-2022 09:59-0400 Body mass index (BMI) [Ratio] 38.1 kg/m2 Gladys Garcia Work Phone: [facility] 250 DO Work Phone: 12-16-2021 09:59-0400 Body surface area Derived from formula 2.62 m2 Gladys Garcia Work Phone: [facility] [facility] DO Work Phone: 12-16-2021 09:59-0400 Body weight 138.26 kg Gladys Garcia Work Phone: [facility] 250 DO Work Phone: 12-16-2021 09:59-0400 Diastolic blood pressure 60 mm[Hg] Gladys Garcia Work Phone: [facility] 250 DO Work Phone: 12-16-2021 09:59-0400 Heart rate 100 /min Gladys Garcia Work Phone: [facility] [facility] DO Work Phone: 12-16-2021 09:59-0400 Systolic blood pressure 102 mm[Hg] Gladys Garcia Work Phone: [facility] [facility] DO Work Phone: Encounters Encounter Date Encounter Type Care Provider Facility Start: 12-29-2023 End: 12-29-2023 ambulatory TOBY AMADOR Not Available Start: 12-28-2023 End: 12-28-2023 ambulatory PINEDA BUSTOS Not Available Start: 12-21-2023 End: 12-21-2023 ambulatory PINEDA BUSTOS Not Available Start: 12-16-2023 End: 12-16-2023 ambulatory LIOR [facility] Ambulatory Start: 12-16-2023 End: 12-16-2023 Office outpatient visit 25 minutes Lior Villeda MD Work Phone: [facility] 3 Comment on above: Essential hypertensi on (Primary Dx); ST elevation myocardial infarction (STEMI) of anterior wall (CMS/HCC); Ventricular tachycardia, nonsustained (CMS/HCC); Primary cardiomyopathy (CMS/HCC); Paroxysmal atrial fibrillation with rapid ventricular response (CMS/HCC) Start: 12-14-2023 End: 12-14-2023 ambulatory PINEDA BUSTOS Not Available Start: 12-08-2023 End: 12-09-2023 Evaluation and management of inpatient MD Toby Amador Work Phone: [facility] Work Phone: Start: 12-07-2023 End: 12-09-2023 Non-patient / Non-visit MD Toby Amador Work Phone: [facility] Work Phone: Start: 12-07-2023 End: 12-09-2023 ambulatory Angel Griggs Facility:[facility] Start: 12-07-2023 End: 12-09-2023 Evaluation and management of inpatient MD Toby Amador Work Phone: [facility] Work Phone: Start: 12-07-2023 End: 12-09-2023 observation encounter MD Toby Amador Work Phone: [facility] Work Phone: Start: 12-01-2023 End: 12-01-2023 ambulatory PINEDA BUSTOS Not Available Start: 11-30-2023 End: 11-30-2023 ambulatory Mourmando Traboulssi Facility:[facility] Start: 11-30-2023 End: 11-30-2023 Admission to same day surgery center MD Toby Amador Work Phone: [facility] Work Phone: Start: 11-23-2023 End: 11-23-2023 ambulatory TOBY AMADOR Not Available Start: 11-22-2023 End: 11-22-2023 ambulatory Pineda Bustos Facility:[facility] Start: 11-22-2023 End: 11-22-2023 ambulatory PINEDA BUSTOS Not Available Start: 11-22-2023 End: 11-22-2023 Departed Referred MD Toby Amador Work Phone: [facility] [place] Work Phone: Start: 11-10-2023 End: 11-10-2023 ambulatory [facility] Ambulatory Start: 11-10-2023 End: 11-10-2023 ambulatory HEATHER VERA Not Available Start: 11-10-2023 End: 11-10-2023 Professional / ancillary services management Monica Curran LPN [facility] Comment on above: History of PR (myoca rdial infarction); Paroxysmal atrial fibrillation (CMS/HCC) Start: 11-08-2023 End: 11-09-2023 ambulatory NATHAN [facility] Start: 11-08-2023 End: 11-08-2023 Subsequent hospital visit by physician Par Mac 3 Device Remote [facility] 3 Comment on above: Presence of automati c cardioverter/defibrillator (AICD); Ventricular tachycardia, nonsustained (CMS/HCC) Start: 11-01-2023 End: 11-02-2023 ambulatory LIOR VILLEDA [facility] Start: 11-01-2023 End: 11-01-2023 Subsequent hospital visit by physician Par Mac 3 Device Remote [facility] 3 Comment on above: Ventricular tachycar duyen, nonsustained (CMS/HCC); Presence of automatic cardioverter/defibrillator (AICD) Start: 10-29-2023 End: 10-30-2023 Evaluation and management of inpatient Darcy Mischler Facility:[facility] Start: 10-29-2023 End: 10-30-2023 Evaluation and management of inpatient MD Gladys Garcia Work Phone: [facility] Work Phone: Start: 10-28-2023 Non-patient / Non-visit MD Gladys Garcia Work Phone: [facility] Work Phone: Start: 10-28-2023 End: 10-30-2023 Evaluation and management of inpatient MD Gladys Garcia Work Phone: [facility] Work Phone: Start: 10-28-2023 End: 10-30-2023 observation encounter MD Gladys Garcia Work Phone: [facility] Work Phone: Start: 10-28-2023 End: 10-28-2023 ambulatory [facility] Start: 10-28-2023 End: 10-28-2023 Professional / ancillary services management Monica Curran LPN [facility] Comment on above: Paroxysmal atrial fi brillation with rapid ventricular response (CMS/HCC) Start: 10-21-2023 End: 10-22-2023 ambulatory [facility] Start: 10-21-2023 End: 10-21-2023 Subsequent hospital visit by physician Joaquina Winkler Echo/Vasc Room 2 [facility] Comment on above: Dyspnea on exertion; Ischemic cardiomyopathy Start: 10-20-2023 End: 10-20-2023 ambulatory [facility] Facility:[facility] Start: 10-20-2023 End: 10-20-2023 Admission to same day surgery center MD Gladys Garcia Work Phone: [facility] Work Phone: Start: 10-20-2023 End: 10-20-2023 ambulatory MD Gladys Garcia Work Phone: [facility] Work Phone: Start: 10-19-2023 End: 10-20-2023 ambulatory [facility] Start: 10-19-2023 End: 10-19-2023 Subsequent hospital visit by physician Osito [facility] 3 Device Remote [facility] 3 Comment on above: Ventricular tachycar duyen, nonsustained (CMS/HCC); Presence of automatic cardioverter/defibrillator (AICD) Start: 10-18-2023 End: 10-18-2023 ambulatory ANGEL GRIGGS [facility] Ambulatory Start: 10-18-2023 End: 10-18-2023 Office outpatient visit 40 minutes Angel Griggs MD Work Phone: [facility] Comment on above: Atrial flutter, unsp ecified type ([facility]/HCC); Paroxysmal atrial fibrillation ([facility]/HCC); H/O cardiac radiofrequency ablation; Coronary artery disease involving iqugmiut coronary artery of iqugmiut heart without angina pectoris; Ischemic cardiomyopathy; Ventricular tachycardia, nonsustained ([facility]); S/P implantation of automatic cardioverter/defibrillator (AICD); Essential hypertension; Stage 3 chronic kidney disease, unspecified whether stage 3a or 3b CKD (CMS/HCC); Mixed hyperlipidemia; Type 2 diabetes mellitus with neurological manifestation (CMS/[facility]); Atrial fibrillation ([facility]); Hypotension, unspecified hypotension type Start: 10-03-2023 End: 10-03-2023 ambulatory Farnaz Collazo Other [employer] Other Start: 10-03-2023 Telephone encounter Farnaz Collazo [facility] Start: 09-26-2023 End: 09-26-2023 ambulatory TOBY AMADOR Not Available Start: 09-21-2023 End: 09-22-2023 ambulatory [facility] Start: 09-21-2023 End: 09-21-2023 Subsequent hospital visit by physician Osito Briseno [employer] Comment on above: Arrived Start: 09-14-2023 End: 09-14-2023 Emergency department patient visit José Luis Coleman Facility:[facility] Start: 09-14-2023 End: 09-14-2023 Emergency department patient visit MD Gladys Garcia Work Phone: [facility] Work Phone: Start: 09-14-2023 End: 09-14-2023 ambulatory MARIELENA RESTREPO Not Available Start: 09-01-2023 End: 09-01-2023 ambulatory Farnaz Collazo Other [employer] Other Start: 09-01-2023 Telephone encounter Farnaz [facility] Start: 08-29-2023 End: 08-31-2023 ambulatory LIOR VILLEDA [facility] Start: 08-29-2023 End: 08-31-2023 Evaluation and management of inpatient Lior Villeda MD Work Phone: [facility] 8 Comment on above: Atrial fibrillation (CMS/HCC) (Primary Dx); Ischemic cardiomyopathy Start: 08-22-2023 End: 08-23-2023 ambulatory Angel Wrightahim Facility:[facility] Start: 08-22-2023 End: 08-22-2023 ambulatory MD Gladys Garcia Work Phone: [facility] Work Phone: Start: 08-22-2023 End: 08-22-2023 Discharged Recurring MD Gladys Garcia Work Phone: [facility] Work Phone: Start: 08-22-2023 Registered Recurring MD Gladys lemons Work Phone: [facility] Work Phone: Start: 08-09-2023 End: 08-10-2023 [facility] Start: 08-09-2023 End: 08-09-2023 Subsequent hospital visit by physician Santo Au [facility] 3 Comment on above: Presence of automati c cardioverter/defibrillator (AICD); Ventricular tachycardia, nonsustained (CMS/HCC) Start: 08-03-2023 ([facility] R A/c) [facility] Re peat A/C Jama Lopez [facility] Start: 08-03-2023 End: 08-03-2023 ambulatory Jama Lopez Other [employer] Other Start: 07-18-2023 End: 07-19-2023 ambulatory [facility] Start: 07-18-2023 End: 07-18-2023 Subsequent hospital visit by physician Osito Mac 3 Device Remote [facility] 3 Comment on above: Presence of automati c cardioverter/defibrillator (AICD); Ventricular tachycardia, nonsustained (CMS/HCC) Start: 07-13-2023 End: 07-13-2023 ambulatory [facility] Start: 07-12-2023 End: 07-12-2023 ambulatory [facility] Clair [facility] Ambulatory Start: 07-12-2023 End: 07-12-2023 Office outpatient visit 25 minutes Angel Griggs MD Work Phone: [facility] Comment on above: Paroxysmal atrial fi brillation (CMS/HCC); Coronary artery disease involving iqugmiut coronary artery of iqugmiut heart without angina pectoris; History of PTCA; History of PR (myocardial infarction); Ischemic cardiomyopathy; Ventricular tachycardia, nonsustained (CMS/HCC); S/P implantation of automatic cardioverter/defibrillator (AICD); Essential hypertension; Hyperlipidemia, unspecified hyperlipidemia type; Orthostatic hypotension Start: 07-12-2023 End: 07-12-2023 Subsequent hospital visit by physician Osito Mac 3 Device Remote [facility] 3 Comment on above: Primary cardiomyopat hy (CMS/HCC) Start: 07-08-2023 End: 07-09-2023 ambulatory [facility] Start: 07-07-2023 End: 07-08-2023 ambulatory TOBY TEJADA [facility] Ambulatory Start: 07-06-2023 ([facility] R A/c) [facility] Re peat A/C Farnaz Collazo [facility] Start: 07-06-2023 End: 07-06-2023 ambulatory Farnaz Collazo Other [employer] Other Start: 06-30-2023 End: 06-30-2023 ambulatory Farnaz Collazo Other [employer] Other Start: 06-30-2023 [facility] Start: 06-29-2023 End: 06-30-2023 Subsequent hospital visit by physician Lior Villeda MD Work Phone: [facility] 8 Comment on above: S/P implantation of automatic cardioverter/defibrillator (AICD) (Primary Dx); Ischemic cardiomyopathy; Paroxysmal atrial fibrillation (CMS/HCC); Ventricular tachycardia, nonsustained (CMS/HCC) Start: 06-20-2023 ([facility] R A/c) [facility]at A/[facility] Start: 06-20-2023 End: 06-20-2023 ambulatory Yun Sanner Other [employer] Other Start: 06-10-2023 End: 06-10-2023 ambulatory Farnaz Billylexy Other [employer] Other Start: 06-10-2023 Telephone encounter Farnaz [facility] Start: 06-06-2023 ([facility] R A/c) [facility] Re peat A/C [facility] Start: 06-06-2023 End: 06-06-2023 ambulatory Yun Sanner Other [employer] Other Start: 05-25-2023 ([facility] R A/c) [facility] Re peat A/C Yun Sanner [facility] Start: 05-25-2023 End: 05-25-2023 ambulatory Yun Sanner Other [employer] Other Start: 05-25-2023 Telephone [facility] Start: 05-24-2023 Office outpatient ne w 60 minutes Toby Amador Work Phone: [facility] Work Phone: Start: 05-24-[address] Toby Amador Facility:[id number] Start: 05-17-2023 Patient encounter procedure Toby Amador Work Phone: [facility] Work Phone: Start: 05-17-[address] Gladys Garcia Facility:[id number] Start: 05-12-2023 ([facility] R A/c) [facility] Re peat A/C Tabitha [facility] Start: 05-12-2023 End: 05-12-2023 ambulatory Tabitha Midfield Other [employer] Other Start: 05-10-2023 Chart Update Gladys Garcia Work Phone: [facility] 250 DO Work Phone: Start: 05-09-2023 ambulatory Angel Griggs Facility :[id number] Start: 05-02-2023 ([facility] R A/c) [facility] Re peat A/C Tabitha [facility] Start: 05-02-2023 End: 05-02-[address] Gladys Garcia [facility] [employer] Other Start: 04-20-2023 Telephone encounter Gladys apple Work Phone: [facility] 250 DO Work Phone: Start: 04-18-2023 Rx Renewal Gladys Garcia Work Phone: [facility] 250 DO Work Phone: Start: 04-18-2023 ([facility] R A/c) [facility] Re peat A/C Tabitha [facility] Start: 04-18-2023 End: 04-18-2023 ambulatory Tabitha Colin Other [place] [employer] Other Start: 04-06-2023 Telephone encounter Gladys Acosta ht Work Phone: [facility] 250 DO Work Phone: Start: 04-04-[address] Gladys Garcia Facility:[id number] Start: 04-03-[address] Gladys Garcia Facility:[id number] Start: 04-02-2023 End: 04-04-2023 ambulatory Derrek Tay Facility:[facility] Start: 04-02-2023 End: 04-04-2023 Evaluation and management of inpatient MD Gladys Garcia Work Phone: [facility] Work Phone: Start: 04-02-2023 End: 04-04-2023 observation encounter MD Gladys Garcia Work Phone: [facility] Work Phone: Start: 03-14-2023 Registered Recurring MD Gladys lemons Work Phone: [facility] Work Phone: Start: 03-14-2023 ([facility] R A/c) [facility] Re peat A/C Jama Lopez [facility] Start: 03-14-2023 End: 03-14-2023 ambulatory Jama Lpoez Other [employer] Other Start: 02-16-2023 ([facility] R A/c) [facility] Re peat A/C Tabitha Midfield [facility] Start: 02-16-2023 End: 02-16-2023 ambulatory Tabitha Midfield Other [employer] Other Start: 01-25-2023 ([facility] R A/c) [facility] Re peat A/C Tabitha Colin [facility] Start: 01-25-2023 End: 01-25-2023 ambulatory Tabitha Colin Other [employer] Other Start: 01-19-2023 End: 01-20-2023 ambulatory GLADYS GARCIA Facility:[facility] Start: 01-13-2023 ([facility] R A/c) [facility] Re peat A/C [facility] Start: 01-13-2023 End: 01-13-2023 ambulatory Tabithaángela Shaw Other [place] [employer] Other Start: 01-11-[address] Angel Griggs Facility: Start: 01-11-2023 Office outpatient vi sit 25 minutes Gladys Garcia Work Phone: [facility] 250 DO Work Phone: Start: 12-30-2022 ([facility] R A/c) [facility] Re peat A/C [facility] Start: 12-30-2022 End: 12-30-2022 ambulatory Yun Sanfabian Other [employer] Other Start: 12-27-2022 Encounter for genera l adult medical examination without abnormal findings DR GLADYS GARCIA . [facility] Start: 12-23-2022 ([facility] R A/c) [facility] Re peat A/C [facility] Start: 12-23-2022 End: 12-24-2022 Encounter for general adult medical examination without abnormal findings DR GLADYS GARCIA . Facility: Start: 12-23-2022 End: 12-24-[address] GLADYS GARCIA . [place] [employer] Other Start: 12-22-2022 End: 12-22-2022 ambulatory MD Gladys Garcia Work Phone: [facility] Work Phone: Start: 12-22-2022 End: 12-22-2022 Departed Referred MD Gladys Garcia Work Phone: [facility] [place] Work Phone: Start: 12-22-2022 End: 12-23-2022 ambulatory GLADYS GARCIA Facility:[facility] Branden Start: 12-15-2022 End: 12-15-2022 Emergency department patient visit MD Gladys Garcia Work Phone: [facility] Work Phone: Start: 12-15-2022 Registered Recurring MD Gladys lemons Work Phone: [facility] Work Phone: Start: 12-15-2022 ([facility] R A/c) [facility] Jama [facility] Start: 12-15-2022 End: 12-15-2022 ambulatory Farnaz Collazo Other [employer] Other Start: 12-15-2022 Telephone encounter Farnaz Collazo [facility] Start: 12-08-2022 Rx Renewal Gladys Garcia Work Phone: [facility] 250 DO Work Phone: Start: 12-02-2022 ([facility] R A/c) [facility] Re peat A/C Jama [facility] Start: 12-02-2022 End: 12-02-2022 ambulatory GLADYS GARCIA [place] [employer] Other Start: 11-01-2022 ([facility] R A/c) [facility] Re peat A/C Tabitha Shaw [facility] Start: 11-01-2022 End: 11-01-2022 ambulatory Tabitha Shaw Other [employer] Other Start: 10-04-2022 ([facility] R A/c) [facility] Re peat A/C Ugo Connelly [facility] Start: 10-04-2022 End: 10-04-2022 ambulatory Ugo LePoire Other [employer] Other Start: 09-27-2022 End: 09-27-2022 ambulatory Farnaz Cervantest Other [employer] Other Start: 09-27-2022 Telephone encounter Farnazapril Collazo [facility] Start: 08-05-2022 Patient encounter procedure Gladys Garcia Work Phone: [facility] 250 DO Work Phone: Start: 07-26-2022 Telephone encounter Gladys Acosta ht Work Phone: [facility] 250 DO Work Phone: Start: 07-26-2022 ([facility] R A/c) [facility] Re peat A/C [facility] Start: 07-26-2022 End: 07-26-2022 ambulatory Farnaz Fitt Other [employer] Other Start: 07-17-2022 End: 07-18-[address] ANGEL GRIGGS Facility: Start: 07-12-2022 Office outpatient vi sit 40 minutes Gladys Garcia Work Phone: [facility] 250 DO Work Phone: Start: 06-22-2022 Rx Renewal Gladys Garcia Work Phone: [facility] 250 DO Work Phone: Start: 06-21-2022 ([facility] R A/c) [facility] Re peat A/C Farnaz Fitt [facility] Start: 06-21-2022 End: 06-21-2022 ambulatory Farnaz Fitt Other [employer] Other Start: 06-21-2022 Telephone encounter Farnazapril Collazo [facility] Start: 05-17-2022 ([facility] R A/c) [facility] Re peat A/C Farnaz Fitt [facility] Start: 05-17-2022 End: 05-17-2022 ambulatory Farnaz Fitt Other [employer] Other Start: 05-10-2022 End: 05-10-2022 Departed Referred MD Gladys Garcia Work Phone: [facility] [place] Start: 04-25-[address] GLADYS GARCIA . Facil ity:H1 Start: 04-07-2022 ([facility] R A/c) [facility] Re peat A/C Farnaz Fitt [facility] Start: 04-07-2022 End: 04-07-2022 ambulatory Farnaz Fitt Other [place] [employer] Other Start: 03-24-2022 Rx Renewal Gladys Garcia Work Phone: [facility] 250 DO Work Phone: Start: 03-12-2022 End: 03-13-[address] GLADYS GARCIA . Facility: Start: 03-10-2022 ([facility] R A/c) [facility] Re peat A/C Farnaz Fitt [facility] Start: 03-10-2022 End: 03-10-2022 ambulatory Farnaz Fitt Other [place] [employer] Other Start: 03-01-2022 End: 03-01-2022 Emergency department patient visit MD Gladys Garcia Work Phone: [facility] Start: 02-10-2022 ([facility] R A/c) [facility] Re peat A/C Farnaz Fitt [facility] Start: 02-10-2022 End: 02-10-2022 ambulatory Farnaz Fitt Other [employer] Other Start: 01-13-2022 ([facility] R A/c) [facility] Re peat A/C Farnaz Fitt [facility] Start: 01-13-2022 End: 01-13-2022 ambulatory Farnaz Fitt Other [employer] Other Start: 12-16-2021 ([facility] R A/c) [facility] Re peat A/C Farnaz Fitt [facility] Start: 12-16-2021 End: 12-16-2021 ambulatory Farnaz Fitt Other [employer] Other Start: 12-16-2021 Office outpatient vi sit 25 minutes Gladys Garcia Work Phone: [facility] 250 DO Work Phone: Start: 11-19-2021 ([facility] R A/c) [facility] Re peat A/C Farnaz Fitt [facility] Start: 11-19-2021 End: 11-19-2021 ambulatory Farnaz Fitt Other [employer] Other Start: 10-20-2021 ([facility] R A/c) [facility] Re peat A/C Farnaz Fitt [facility] Start: 10-20-2021 End: 10-20-2021 ambulatory Farnaz Fitt Other [employer] Other Start: 09-22-2021 ([facility] R A/c) [facility] Re peat A/C Farnaz Fitt [facility] Start: 09-22-2021 End: 09-22-2021 ambulatory Farnaz Fitt Other [employer] Other Start: 08-24-2021 ([facility] R A/c) [facility] Re peat A/C Farnaz Fitt [facility] Start: 08-24-2021 End: 08-24-2021 ambulatory Farnaz Fitt Other [employer] Other Start: 08-05-2021 End: 08-05-2021 ambulatory Farnaz Fitt Other [employer] Other Start: 08-05-2021 Telephone encounter Farnaz Collazo [facility] Start: 07-22-2021 ([facility] R A/c) [facility] Re peat A/C Farnaz Fitt [facility] Start: 07-22-2021 End: 07-22-2021 ambulatory Farnaz Fitt Other [employer] Other Start: 07-15-2021 ([facility] R A/c) [facility] Re peat A/C Farnaz Billyt [facility] Start: 07-15-2021 Telephone encounter Farnaz Collazo [facility] Start: 06-24-2021 ([facility] R A/c) [facility] Re peat A/C Farnaz Fitt [facility] Procedures Date Procedure Procedure Detail Performing Clinician Start: 12-16-2023 ECG 12-LEAD TOBY SCOTT [facility] Start: 12-16-2023 Ecg routine ecg w/le ast 12 lds w/i&r Lior Villeda MD Work Phone: Start: 12-07-2023 Plain chest X-ray MD Julieta Amador Work Phone: Start: 11-22-2023 Aerobic microbial culture MD Toby Amador Work Phone: Start: 11-08-2023 CARDIAC DEVICE CHECK - REMOTE LIOR VILLEDA Start: 11-01-2023 CARDIAC DEVICE CHECK CHECK - REMOTE ALERT LIOR VILLEDA Start: 11-01-2023 CARDIAC DEVICE CHECK CHECK - REMOTE ALERT Lior Villeda MD Work Phone: Start: 10-28-2023 ECG 12-LEAD [facility] Start: 10-28-2023 Plain chest X-ray MD Sharif Garcia Work Phone: Start: 10-21-2023 TRANSTHORACIC ECHO ( TTE) LIMITED ANGEL GRIGGS Start: 10-21-2023 Echo transthorc r-t 2d w/wo m-mode rec f-up/lmtd Angel Griggs MD Work Phone: Start: 10-19-2023 CARDIAC DEVICE CHECK - REMOTE LIOR VILLEDA Start: 10-18-2023 ECG 12-LEAD TOBY CHAVEZ ER Start: 10-18-2023 FOLLOW UP IN CARDIOLOGY TOBY QUACHR Start: 10-18-2023 Ecg routine ecg w/le ast 12 lds w/i&r Angel Griggs MD Work Phone: Start: 09-21-2023 ECG 12-LEAD LIOR SILVERIO Start: 09-21-2023 Ecg routine ecg w/le ast 12 lds trcg only w/o i&r Lior Villeda MD Work Phone: Start: 09-14-2023 Plain chest X-ray MD Sharif Garcia Work Phone: Start: 08-31-2023 DISCHARGE PATIENT JOSEFINA JOLLYIN Start: 08-31-2023 Glucose [Mass/volume ] in Serum [...] ADMISSION - MEDICATIONS LIOR VILLEDA Start: 08-29-2023 WEIGH PATIENT LIOR VILLEDA Start: 08-29-2023 ADMIT TO INPATIENT KELLY VILLEDA Start: 08-29-2023 POSTPROCEDURE LEVEL OF CARE CHANGE LIOR VILLEDA Start: 08-29-2023 DISCHARGE INSTRUCTIONS LIOR VILLEDA Start: 08-29-2023 FOLLOW UP WITH PROVIDER LIOR VILLEDA Start: 08-29-2023 ADULT DISCHARGE DIET KAMI VILLEDA Start: 08-29-2023 DISCHARGE ACTIVITY KELLY VILLEDA Start: 08-29-2023 NOTIFY PROVIDER (DO NOT PROMPT FOR PARAMETERS) LIOR JOLLYIN Start: 08-29-2023 ELECTROPHYSIOLOGY PROCEDURE LIORPEYTON VILLEDA Start: 08-29-2023 Electrophysiology study Lior Villeda MD Work Phone: Start: 08-29-2023 ACTIVATED CLOTTING TIME LOW LIOR RONAL Start: 08-29-2023 TRANSESOPHAGEAL ECHO (CLEO) LIOR VILLEDA Start: 08-29-2023 ACTIVATED CLOTTING TIME LOW LIOR JOLLYIN Start: 08-29-2023 Echo transesophag r- t 2d w/prb img acquisj i&r Lior Villeda MD Work Phone: Start: 08-29-2023 PROTIME-INR LIOR SILVERIO Start: 08-29-2023 Glucose [Mass/volume ] in Serum or Plasma LIOR VILLEDA Start: 08-29-2023 End: 08-29-2023 Prothrombin time Lior Villeda MD Work Phone: Start: 08-09-2023 Basic metabolic 2000 panel - Serum or Plasma TOBY QUACHR Start: 08-09-2023 CBC panel - Blood by Automated count TOBY QUACHR Start: 08-09-2023 PROTIME-INR TOBY CHAVEZ ER Start: 08-09-2023 CARDIAC DEVICE CHECK - IN CLINIC LIOR [facility]ILLEDA Start: 07-20-2023 CARDIAC DEVICE CHECK - REMOTE LIOR VILLEDA Start: 07-14-2023 CARDIAC DEVICE CHECK CHECK - REMOTE LIOR VILLEDA Start: 07-12-2023 ECG 12-LEAD TOBY SCOTT ER Start: 07-12-2023 Ecg routine ecg w/le ast 12 lds w/i&r Angel Griggs MD Work Phone: Start: 06-30-2023 Glucose quantitative blood xcpt reagent strip Lior Villeda MD Work Phone: Start: 06-30-2023 LAVENDER TOP Lior silverio MD Work Phone: Start: 06-30-2023 SST TOP Lior silverio MD Work Phone: Start: 06-30-2023 Radiologic exam ches t 2 views Lorene Vernon CAREER DEVELOPMENT FACILITATOR-FURNITURE PAINTER Work Phone: Start: 06-30-2023 Prothrombin time Nani y Juanita Vernon CAREER DEVELOPMENT FACILITATOR-FURNITURE PAINTER Work Phone: Start: 06-29-2023 Glucose quantitative blood xcpt reagent strip Lior Villeda MD Work Phone: Start: 06-29-2023 Electrophysiology study Lior Villeda MD Work Phone: Start: 06-29-2023 End: 06-29-2023 Prothrombin time Lorene Vernon CAREER DEVELOPMENT FACILITATOR-FURNITURE PAINTER Work Phone: Start: 06-12-2023 History of percutane ous transluminal coronary angioplasty History of PTCA Lior Villeda MD Work Phone: Start: 04-03-2023 Doppler ultrasonogra phy of bilateral carotid arteries MD Gladys Garcia Work Phone: Start: 04-02-2023 Plain chest X-ray MD Sharif Garcia Work Phone: Start: 12-23-[address] ANGEL GRIGGS Comment on above: Performed By: #### C RP, PREALB #### [facility] [address] [place] [address] Dr. Rayshawn Clark Start: 03-01-2022 Plain chest X-ray MD Sharif Garcia Work Phone: Aerobic microbial culture MD Gladys Garcia Work Phone: Amputation of toe Gladys Cale Dave ht Work Phone: Cardiac catheterization Gladys Garcia Work Phone: Colonoscopy Gladys Garcia Work Phone: Comment on above: [id number]; History of percutane ous transluminal coronary angioplasty History of PTCA Gladys Garcia Work Phone: History of percutane ous transluminal coronary angioplasty History of PTCA Angel Griggs MD Work Phone: History of percutane ous transluminal coronary angioplasty History of PTCA 1 MD Gladys Garcia Work Phone: Procedure on neck Gladys Schwartzchio ht Work Phone: Comment on above: disectomy; Plan of Treatment Date Care Activity Detail Author Start: 04-24-2024 End: 04-24-2024 Patient encounter procedure 04/24/2024 2:30 PM EDT Office Visit [place] [id number] [facility] [address] [place] [phone] Lior Villeda MD [address] [facility] [facility] [address], [address] [place] [address] [place] [address] Start: 04-12-2024 End: 04-12-2024 Patient encounter procedure 04/12/2024 9:50 AM EDT Office Visit [facility] [address] [facility] [address] [place] [address] Angel Griggs MD [address] [facility] 2, [address] [place], [place] [id number] [facility] Start: 12-16-2023 End: 12-16-2023 Patient encounter procedure 12/16/2023 2:30 PM EDT Office Visit [place] [address] [address] [facility] [address] [place] [phone] Lior Villeda MD [address] [facility] 3[address] [place], [place] [facility] 3 Start: 12-09-2023 [facility] Start: 12-07-[address] [facility] Start: 12-07-2023 Sleep disorder assessment [facility] Start: 12-07-2023 [facility] Start: 11-30-2023 [facility] Start: 11-10-2023 End: 11-10-2023 Professional / ancillary services management 11/10/2023 1:00 PM EST Ancillary Procedure [address] [address] [facility] Start: 10-30-2023 [facility] Start: 10-28-[address] [facility] Start: 10-28-2023 Referral to final installer inspector [facility] Start: 10-28-2023 [facility] Start: 10-20-2023 [facility] Start: 10-20-2023 [facility] Start: 10-18-2023 End: 10-18-2025 Cardioversion External Cardioversion External Cardiac Services Routine Paroxysmal atrial fibrillation (CMS/HCC) Expected: 10/18/2023 (Approximate), Expires: 10/18/2025 [facility] Service Area Work Phone: Comment on above: Expected: 10/18/2023 (Approximate), Expi res: 10/18/2025 Start: 10-18-2023 End: 10-18-2023 Patient encounter procedure 10/18/2023 9:30 AM EST Office Visit [facility] [address] [facility] [address] [place] [address] Angel Griggs MD [address] [facility] [address] [place] [address] [facility] Start: 10-13-2023 End: 10-13-2023 Patient encounter procedure 10/13/2023 10:30 AM EST Office Visit [facility] [address] [facility] [address] [place] [address] Lior Villeda MD [address] [facility] [address], [address] [place] [address] [facility] Start: 08-29-2023 ABLATION, Provider: [facility] EP [facility] 3,MG CARD, Status: Pen, Time: 7:30 AM ABLATION, Provider: [facility] EP LAB 3,MG CARD, Status: Pen, Time: 7:30 AM [facility] Work Phone: Start: 08-29-2023 End: 08-29-2023 Admission to same day surgery center [facility] Comment on above: Ablation A-Fib Persistant Start: 08-29-2023 Subsequent hospital visit by physician [facility] Comment on above: Atrial fibrillation (CMS/HCC) Start: 08-20-2023 DTaP/Tdap/Td Vaccines (2 - Td or Tdap) DTaP/Tdap/Td Vaccines (2 - Td or Tdap) [facility] Start: 07-21-2023 Glaucoma screening Diabetes: Retinopathy Screening [facility] Start: 07-12-2023 FUV, Provider: Angel Griggs, Status: Pen, Time: 9:40 AM FUV, Provider: Angel Griggs, Status: Pen, Time: 9:40 AM [facility] [address] DO Work Phone: Start: 07-12-2023 End: 07-12-2023 Patient encounter procedure 07/12/2023 9:40 AM EDT Office Visit [facility] [address] [facility] [address] [place] [address] Angel Griggs MD [address] [facility] [address], [address] [place] [address] [facility] Start: 07-10-2023 Orders Only 07/10/2023 Orders Only [facility] [address] [place] [address] Scanning, Generic Provider [facility] Start: 07-07-2023 End: 07-07-2023 Clinical Support 07/07/2023 1:00 PM EDT Clinical Support [facility] 3 [address] [facility] [address] [place] [address] [facility] 3 Start: 05-30-2023 NPVRFRL, Provider: Majo Jimenez, Status: Pen, Time: 10:20 AM NPVRFRL, Provider: Majo Jimenez, Status: Pen, Time: 10:20 AM [id number] Work Phone: Start: 05-20-2023 COVID-19 Vaccine () COVID-19 Vaccine () [facility] Start: 05-20-2023 Influenza vaccination Influenza Vaccine (#1) [facility] Start: 05-17-2023 EKG, Provider: ASHA DECKER ELECTRONIC INDUCTION HARDENER 1,[id number], Status: Pen, Time: 9:30 AM EKG, Provider: ASHA DECKER ELECTRONIC INDUCTION HARDENER 1,[id number], Status: Pen, Time: 9:30 AM [facility] [address] DO Work Phone: Start: 05-05-2023 REST ONLY, Provider: PETERSON HHVI NUCLEAR 01,[id number], Status: Pen, Time: 10:30 AM REST ONLY, Provider: PETERSON HHVI NUCLEAR 01,[id number], Status: Pen, Time: 10:30 AM [facility] 250 DO Work Phone: Start: 05-04-2023 REST ONLY, Provider: PETERSON HHVI NUCLEAR 01,[id number], Status: Pen, Time: 10:30 AM REST ONLY, Provider: PETERSON HHVI NUCLEAR 01,[id number], Status: Pen, Time: 10:30 AM [facility] 250 DO Work Phone: Start: 05-02-2023 STRESSNUC2, Provider: PETERSON HHVI NUCLEAR 01,[id number], Status: Pen, Time: 11:30 AM STRESSNUC2, Provider: PETERSON HHVI NUCLEAR 01,[id number], Status: Pen, Time: 11:30 AM [facility] Work Phone: Start: 04-12-2023 [facility] Start: 04-11-2023 [facility] Start: 04-10-2023 [facility] Start: 04-09-2023 [facility] Start: 04-08-2023 [facility] Start: 04-07-[address] [facility] Start: 04-07-2023 [facility] Start: 04-06-[address] [facility] Start: 04-06-2023 [facility] Start: 04-05-[address] [facility] Start: 04-05-2023 [facility] Start: 04-04-2023 [facility] Start: 04-02-2023 Referral to final installer inspector [facility] Start: 04-02-[address] [facility] Start: 04-02-2023 End: 04-02-2023 [facility] Start: 01-11-2023 FUV, Provider: Angel Griggs, Status: Pen, Time: 9:30 AM FUV, Provider: Angel Griggs, Status: Pen, Time: 9:30 AM [facility] 250 DO Work Phone: Start: 12-22-2022 Aerobic Culture Aerobic Culture [facility] Start: 12-22-2022 Anaerobic [address] Anaerobic Culture [facility] Start: 12-22-2022 Microscopic observation [Identifier] in Unspecified specimen by Gram stain [facility] Start: 08-05-2022 EVENT ROSELIA, Provider: ASHA DECKER ELECTRONIC INDUCTION HARDENER 1,[id number], Status: Pen, Time: 3:00 PM EVENT ROSELIA, Provider: ASHA DECKER ELECTRONIC INDUCTION HARDENER 1,[id number], Status: Pen, Time: 3:00 PM [facility] [address] DO Work Phone: Start: 07-12-2022 FUV, Provider: Angel Griggs, Status: Pen, Time: 3:40 PM FUV, Provider: Angel Griggs, Status: Pen, Time: 3:40 PM [facility] [address] DO Work Phone: Start: 06-29-2022 FUV, Provider: Angel Griggs, Status: Pen, Time: 10:20 AM FUV, Provider: Angel Griggs, Status: Pen, Time: 10:20 AM -[facility] [address] DO Work Phone: Start: 05-17-2022 Registered Recurring Registered Recurring [facility] Start: 01-23-2021 COVID-19 Vaccine (3 - Booster for Nelson series) COVID-19 Vaccine (3 - Booster for Nelson series) [facility] Start: 2013 Zoster Vaccines (1 of 2) Zoster Vaccines (1 of 2) [facility] Start: 1982 Urine screening for protein Diabetes: Urine Protein Screening [facility] Start: 1981 Hepatitis C screening Hepatitis C Screening [facility] Start: 1973 Diabetic foot examination Diabetes: Foot Exam [facility] Start: 1973 Glaucoma screening Diabetes: Retinopathy Screening [facility] Start: 1969 Pneumococcal Vaccine: Pediatrics (0 to 5 Years) and At-Risk Patients (6 to 64 Years) (1 - PCV) Pneumococcal Vaccine: Pediatrics (0 to 5 Years) and At-Risk Patients (6 to 64 Years) (1 - PCV) [facility] Start: 1964 MMR Vaccines (1 of 1 - Standard series) MMR Vaccines (1 of 1 - Standard series) [facility] Start: 1963 Hemoglobin A1c measurement Diabetes: Hemoglobin A1C [facility] Start: 1963 HIV screening HIV Screening [facility] Start: 1963 Lipid panel Lipid Panel [facility] Start: 1963 Screening for malignant neoplasm of colon [facility] Start: 1963 Thyroid stimulating hormone measurement TSH Level [facility] Start: 1963 Yearly Adult Physical Yearly Adult Physical [facility] Bacteria identified in Unspecified specimen by Aerobe culture [facility] Bacteria identified in Unspecified specimen by Anaerobe culture [facility] Bilirubin measuremen t, urine [facility] End: 08-09-2023 Cardiac device check - In Clinic [facility] Service Area Work Phone: Comment on above: Once for 1 Occurrences starting 08/09/20 until 08/09/2023 End: 07-13-2023 Cardiac device check - Remote [facility] Area Work Phone: Comment on above: Once for 1 Occurrences starting 07/13/20 until 07/13/2023 End: 07-18-2023 Cardiac Device Check - Remote [facility] Work Phone: Comment on above: Once for 1 Occurrences starting 07/18/20 until 07/18/2023 End: 10-19-2023 Cardiac Device Check - Remote [facility] Work Phone: Comment on above: Once for 1 Occurrences starting 10/19/19 until 10/19/2023 End: 11-08-2023 Cardiac Device Check - Remote [facility] Work Phone: Comment on above: Once for 1 Occurrences starting 11/08/19 until 11/08/2023 Color of Urine [facility] End: 08-29-2023 Continuous Pulse oximetry, In Phase 1 [facility] Area Work Phone: Comment on above: Continuous until discontinued starting 1 10/30/2022 Detection of hemoglobin [facility] ECG 12 Lead ECG 12 Lead ECG Routine As needed until discontinued starting 06/29/[address] [facility] Work Phone: Comment on above: As needed until discontinued starting ECG 12 Lead ECG 12 Lead ECG Routine 08/30/2023 11:50 AM EST [facility] Work Phone: ECG 12 Lead ECG 12 Lead ECG Routine Paroxysmal atrial fibrillation with rapid ventricular response (CMS/HCC) 10/28/2023 10:08 AM EST [facility] Work Phone: ECG 12 Lead ECG 12 Lead ECG Routine Paroxysmal atrial fibrillation (CMS/HCC) 11/10/2023 1:00 PM EST [facility] Work Phone: End: 08-30-2023 Electrocardiogram - Day of Discharge [facility] Work Phone: Comment on above: Once for 1 Occurrences starting 08/30/20 23 until 08/30/2023 End: 08-29-2023 Electrocardiogram, 12-lead PRN ACS symptoms [facility] Work Phone: Comment on above: As needed until discontinued starting Once for 1 Occurrenc es starting 08/29/2023 until 08/29/2023 Electrocardiogram, 12-lead PRN ACS symptoms Electrocardiogram, 12-lead PRN ACS symptoms ECG Routine As needed until discontinued starting 08/29/[address] [facility] Work Phone: Comment on above: As needed until discontinued starting Electrophysiology study Electrop hysiology procedure Electrophysiology Routine Ischemic cardiomyopathy 06/29/2023 4:21 PM EDT [facility] Work Phone: End: 06-30-2023 Extra Tubes [facility] Work Phone: Comment on above: Once (Lab) for 1 Occurrences starting until 06/30/2023 Glucose [Mass/volume ] in Serum or Plasma POCT Glucose Point of Care Testing - Docked Device Routine As needed (Lab) until discontinued starting 06/29/2023 [facility] Work Phone: Comment on above: As needed (Lab) until discontinued start ing 06/29/2023 Glucose [Mass/volume ] in Serum or Plasma [facility] Work Phone: Comment on above: 4x daily - AC and at bedtime until disco ntinued starting 08/29/2023 As needed (Lab) unti l discontinued starting 08/29/2023 Glucose [Mass/volume ] in Urine by Test strip [facility] INR in Platelet poor plasma by Coagulation assay [facility] Lavender Top Lavender Top Lab Routine 06/30/2023 12:02 PM EDT [facility] Work Phone: Measurement of keton es in urine using dipstick [facility] Patient Education [facility] Work Phone: Patient referral [facility] Work Phone: Protein measurement, urine [facility] Pro[facility] ([facility] SST TOP SST TOP Lab Rout ine 06/30/2023 12:02 PM EDT [facility] Work Phone: End: 08-31-2023 Urethral Catheter Removal Urethral Catheter Removal Procedures Routine Once for 1 Occurrences starting 08/31/2023 until 08/31/[address] [facility] Work Phone: Comment on above: Once for 1 Occurrences starting 08/31/20 until 08/31/2023 Urinalysis, specific gravity measurement [facility] Urine dipstick for nitrite [facility] Urine dipstick for specific gravity [facility] Urine pH test [facility] Urobilinogen concentration, test strip measurement [facility] Immunizations Immunization Date Immunization Notes Care Provider Karthikeyan lira 11-28-2020 Nelson COVID-19 Vac cine 0.5 ML Intramuscular Suspension Gladys Garcia Work Phone: [facility] 250 DO Work Phone: 11-17-2020 Nelson COVID-19 Vac cine 0.5 ML Intramuscular Suspension Gladys Garcia Work Phone: [facility] 06-19-2020 influenza virus vacc ine, unspecified formulation Gladys Garcia Work Phone: [facility] 250 DO Work Phone: 06-19-2020 influenza, seasonal, injectable Gladys Garcia Work Phone: [facility] 250 DO Work Phone: 05-20-2019 influenza virus vacc ine, unspecified formulation [facility] Work Phone: 08-29-2018 influenza, injectabl e, quadrivalent, preservative free [facility] Work Phone: 06-19-2018 influenza virus vacc ine, unspecified formulation Gladsy Garcia Work Phone: [facility] [employer] DO Work Phone: 07-05-2017 influenza, injectabl e, quadrivalent, preservative free Gladys Garcia [facility] Work Phone: 06-25-2016 hepatitis A vaccine, adult dosage Gladys Garcia Work Phone: [facility] [employer] DO Work Phone: 06-25-2016 typhoid capsular polysaccharide vaccine Gladys Garcia Work Phone: [facility] [employer] DO Work Phone: 08-20-2013 tetanus toxoid, redu brenda diphtheria toxoid, and acellular pertussis vaccine, adsorbed Gladys Garcia Work Phone: [facility] [employer] DO Work Phone: 08-10-2013 influenza, seasonal, injectable Gladys Garcia Work Phone: [facility] Work Phone: Payers Date Payer Category Payer Unknown 2022 Private Health Insurance [facility] [id number] 2022-Present [address] [place] [address] [id number] 2020 Self-pay [id number] 1963 Unknown [id number] 2.16.840.1.764622.3.579.2.59 3 1963 Unknown [id number] 2.16.840.1.090579.3.579.2.59 3 1963 Unknown [id number] 2.16.840.1.012133.3.579.2.59 3 1963 Unknown [id number] 2.16.840.1.711766.3.579.2.59 3 1963 Unknown [id number] 2.16.840.1.670273.3.579.2.59 3 1963 Unknown [id number] 2.16.840.1.824456.3.579.2.72 7 1963 Unknown [id number] 2.16.840.1.914772.3.579.2.72 7 1963 Unknown [id number] 2.16.840.1.905836.3.579.2.10 68 1963 Unknown [id number] 2.16.840.1.746659.3.579.2.10 68 1963 Unknown [id number] 2.16.840.1.218727.3.579.2.12 45 1963 Unknown [id number] 2.16.840.1.336369.3.579.2.35 6 1963 Unknown [id number] 2.16.840.1.124230.3.579.2.35 6 1963 Unknown [id number] 2.16.840.1.004330.3.579.2.35 6 1963 Unknown [id number] 2.16.840.1.318628.3.579.2.35 6 1963 Unknown [id number] 2.16.840.1.525807.3.579.2.35 6 1963 Unknown [id number] 2.16.840.1.429722.3.579.2.35 6 1963 Unknown [id number] 2.16.840.1.333523.3.579.2.12 59 1963 Unknown [id number] 2.16.840.1.119801.3.579.2.12 59 1963 Unknown [id number] 2.16.840.1.460353.3.579.2.12 59 1963 Unknown [id number] 2.16.840.1.700699.3.579.2.12 59 1963 Unknown [id number] 2.16.840.1.226440.3.579.2.12 59 1963 Unknown [id number] 2.16.840.1.916488.3.579.2.12 59 1963 Unknown [id number] 2.16.840.1.765343.3.579.2.12 59 1963 Unknown [id number] 2.16.840.1.298166.3.579.2.12 59 1963 Unknown [id number] 2.16.840.1.935440.3.579.2.12 59 1963 Unknown [id number] 2.16.840.1.629983.3.579.2.12 59 1963 Unknown [id number] 2.16.840.1.008526.3.579.2.12 47 1963 Unknown [id number] 2.16.840.1.360018.3.579.2.12 47 1963 Unknown [id number] 2.16.840.1.239352.3.579.2.12 47 1963 Unknown [id number] 2.16.840.1.335513.3.579.2.12 47 1963 Unknown [id number] 2.16.840.1.125480.3.579.2.12 47 1963 Unknown [id number] 2.16.840.1.968153.3.579.2.12 47 1963 Unknown [id number] 2.16.840.1.911854.3.579.2.12 47 1963 Unknown [id number] 2.16.840.1.114819.3.579.2.12 47 1963 Unknown [id number] 2.16.840.1.417463.3.579.2.12 46 1963 Unknown [id number] 2.16.840.1.037862.3.579.2.12 44 1963 Unknown [id number] 2.16.840.1.519186.3.579.2.12 44 1963 Unknown [id number] 2.16.840.1.431054.3.579.2.12 44 1963 Unknown [id number] 2.16.840.1.232324.3.579.2.12 44 1963 Unknown [id number] 2.16.840.1.047295.3.579.2.12 44 1963 Unknown [id number] 2.16.840.1.177314.3.579.2.12 44 1963 Unknown [id number] 2.16.840.1.320880.3.579.2.12 44 1959 Self-pay [id number] 1959 Unknown [id number] 2.16.840.1.848370.19 1959 Unknown [id number] Unknown [facility] [id number] Unknown [id number] 2.16.840.1.909498.3.579.2.53 1 Unknown [id number] 2.16.840.1.497840.3.579.2.53 1 Unknown [id number] 2.16.840.1.502864.3.579.2.53 1 Unknown [id number] 2.16.840.1.321985.3.579.2.53 1 Unknown [id number] 2.16.840.1.726201.3.579.2.53 1 Unknown [id number] 2.16.840.1.016313.3.579.2.53 1 Unknown [id number] 2.16.840.1.950036.3.579.2.53 1 Unknown [id number] 2.16.840.1.893068.3.579.2.53 1 Social History Date Type Detail Facility Start: 06-29-2023 End: 08-29-2023 Never a smoker Never a smoker [facility] Start: 06-29-2023 End: 08-29-2023 Sex Assigned At [facility] Start: 03-01-2022 End: 12-08-2023 Tobacco smoking status NHIS Never smoked tobacco (finding) [facility] Start: 1965 Sex Assigned At Male F [facility] Start: 06-30-2023 Tobacco use and exposure Smokeless tobacco non-user [facility] Work Phone: How often to you hav e a drink containing alcohol? Never [facility] How many standard drinks containing alcohol do you have on a typical day? Patient does not drink [facility] Work Phone: How hard is it for y ou to pay for the very basics like food, housing, medical care, and heating Not very hard [facility] Work Phone: In the past 12 month s, was there a time when you were not able to pay the mortgage or rent on time? No [facility] Work Phone: Start: 1965 Sex Assigned At Not on file [facility] Work Phone: Start: 06-19-2023 End: 03-29-2024 Exposure to SARS-CoV-2 (event) Not sure [facility] Start: 07-12-2023 End: 12-16-2023 Alcohol intake Lifetime non-drinker (finding) [facility] Work Phone: Medical Equipment Procedure Code Equipment Code Equipment Original Text Equipment Identifier Dates CL CLOSURE DEVIC E EXOSEAL 6F FDA Start: 10-26-2019 CL STENT BELKIS 2.[address] art: 10-26-2019 Drug-eluting cor onary artery stent, [id number] er-coated ()[id number] FDA Start: 10-26-2019 [id number] FDA Start: 11-08-2019 Femoral artery c losure plug/patch, synthetic polymer ()[id number] FDA Start: 11-08-2019 CL CLOSURE DEVIC E EXOSEAL 6F FDA Start: 10-26-2019 CL STENT BELKIS 2.[address] art: 10-26-2019 [id number] FDA Start: 11-08-2019 CL CLOSURE DEVIC E EXOSEAL 6F FDA Start: 10-26-2019 CL STENT BELKIS 2.[address] art: 10-26-2019 [id number] FDA Start: 11-08-2019 CL CLOSURE DEVIC E EXOSEAL 6F FDA Start: 10-26-2019 CL STENT BELKIS 2.[address] art: 10-26-2019 [id number] FDA Start: 11-08-2019 [id number] Start: 06-29-2023 CL CLOSURE DEVIC E EXOSEAL 6F FDA Start: 10-26-2019 CL STENT BELKIS 2.[address] art: 10-26-2019 [id number] FDA Start: 11-08-2019 Lead, Sprint Frankie ttro, 62cm, Df4 Lead, Icd Secure S - [id number] - [id number] Start: 06-29-2023 Lead, Capsurefix Novus, 52 Cm - [id number] - [id number] Start: 06-29-2023 CL CLOSURE DEVIC E EXOSEAL 6F FDA Start: 10-26-2019 CL STENT BELKIS 2.[address] art: 10-26-2019 [id number] FDA Start: 11-08-2019 CL CLOSURE DEVIC E EXOSEAL 6F FDA Start: 10-26-2019 CL STENT BELKIS 2.[address] art: 10-26-2019 [id number] FDA Start: 11-08-2019 CL CLOSURE DEVIC E EXOSEAL 6F FDA Start: 10-26-2019 CL STENT BELKIS 2.[address] art: 10-26-2019 [id number] FDA Start: 11-08-2019 CL CLOSURE DEVIC E EXOSEAL 6F FDA Start: 10-26-2019 CL STENT BELKIS 2.[address] art: 10-26-2019 [id number] FDA Start: 11-08-2019 CL CLOSURE DEVIC E EXOSEAL 6F FDA Start: 10-26-2019 CL STENT BELKIS 2.[address] art: 10-26-2019 [id number] FDA Start: 11-08-2019 CL CLOSURE DEVIC E EXOSEAL 6F FDA Start: 10-26-2019 CL STENT BELKIS 2.[address] art: 10-26-2019 [id number] FDA Start: 11-08-2019 CL CLOSURE DEVIC E EXOSEAL 6F FDA Start: 10-26-2019 CL STENT BELKIS 2.[address] art: 10-26-2019 [id number] FDA Start: 11-08-2019 CL CLOSURE DEVIC E EXOSEAL 6F FDA Start: 10-26-2019 CL STENT BELKIS 2.[address] art: 10-26-2019 [id number] FDA Start: 11-08-2019 Goals Date Patient Goal Desired Activity /State Functional Status Date Assessment Result Facility 12-09-2023 Functional status Patient at Baseline [facility] Work Phone: 10-30-2023 Functional status Patient at Baseline [facility] Work Phone: 10-28-2023 Functional status Patient at Baseline [facility] Work Phone: 04-04-2023 Functional status Patient at Baseline [facility] Work Phone: Mental Status Date Assessment Result Facility 12-09-2023 Cognitive function Cognitive Sta tus Patient at Baseline [facility] Work Phone: 10-30-2023 Cognitive function Cognitive Sta tus Patient at Baseline [facility] Work Phone: 10-28-2023 Cognitive function Cognitive Sta tus Patient at Baseline [facility] Work Phone: 04-04-2023 Cognitive function Cognitive Sta tus Patient at Baseline [facility] Work Phone: Clinical Notes 06-24-2021 to 12-16-2023 Lior Villeda MD - 12/16/2023 2:30 PM EDT Note Date & Type Note Facility 12-16-2023 History of Present illness Narrative Images from the original note were not included. Cardiac Electrophysiology Office Visit Referred by Lior Gallegos MD for Chief Complaint Patient presents with Hospital Follow-up HPI: Harriett Thakkar is a 58 y.o. year old male patient with h/o sleep apnea (intolerant of CPAP), morbid obesity, HTN, diabetes, hyperlipidemia, CAD s/p PCI x2 (LAD 2020 repeat PCI later in 2019 ISR), h/o PE (>5 years ago), persistent atrial fibrillation s/p ablation presenting today for follow up Objective Current Outpatient Medications Medication Instructions amiodarone (PACERONE) 200 mg, oral, 3 times daily apixaban (ELIQUIS) 5 mg, oral, 2 times daily atorvastatin (Lipitor) 80 mg tablet 1 tablet, oral, Nightly citalopram (CELEXA) 20 mg, oral, Daily RT clopidogrel (Plavix) 75 mg tablet 1 tablet, oral, Daily insulin aspart (NovoLOG) 100 unit/mL injection Insulin Aspart 100 UNIT/ML SOLN Quantity: 120 Refills: 0 Start : 08-Nov-2020 Active magnesium oxide (MAG-OX) 400 mg, oral, Daily metFORMIN (Glucophage) 850 mg tablet 1 tablet, oral, 2 times daily midodrine (PROAMATINE) 10 mg, oral, 3 times daily nitroglycerin (NITROSTAT) 0.4 mg, sublingual, Every 5 min PRN, PLACE 1 TABLET UNDER THE TONGUE EVERY 5 MINUTES FOR UP TO 3 DOSES NEEDED FOR CHEST PAIN.CALL 911 IF PAIN PERSISTS. omeprazole (PriLOSEC) [address] capsule 2 capsules, oral, Daily, Do not crush or chew. Ozempic 2 mg/dose (8 mg/3 mL) pen injector INJECT 2 MG UNDER THE SKIN EVERY WEEK potassium chloride CR 20 mEq ER tablet 1 tablet, Daily tamsulosin (FLOMAX) 0.4 mg, oral, Daily traZODone (DESYREL) 50 mg, oral, Nightly Visit Vitals BP 100/58 (BP Location: Right arm, Patient Position: Sitting) Pulse 96 Resp 16 Wt 130 kg (286 lb) SpO2 98% BMI 36.72 kg/m Smoking Status Never BSA 2.61 m Physical Exam Vitals reviewed. Constitutional: Appearance: Normal appearance. HENT: Head: Normocephalic and atraumatic. Eyes: Pupils: Pupils are equal, round, and reactive to light. Cardiovascular: Rate and Rhythm: Normal rate and regular rhythm. Pulses: Normal pulses. Heart sounds: Normal heart sounds. No murmur heard. Pulmonary: Effort: Pulmonary effort is normal. No respiratory distress. Breath sounds: Normal breath sounds. No wheezing. Abdominal: Tenderness: There is no abdominal tenderness. Musculoskeletal: Comments: Bilateral groin exams without any signs of ecchymosis, hematoma or bruit. Skin: General: Skin is warm and dry. Neurological: General: No focal deficit present. Mental Status: He is alert. My Interpretation of Reviewed Study(s): Echo (March 2023): Mild concentric LVH with LVEF of 45%. Moderate to severe anterior wall hypokinesis. Mildly dilated left atrium. Normal right atrial size. No effusion noted Echo (October 2023): Moderately reduced LV function with an EF of 45% with severe anteroseptal hypokinesis which has been stable compared to prior echoes. Normal biatrial size. No pericardial effusion. [id number] Score Age <65: 0 Sex Male: 0 CHF History Yes: 1 HTN Yes: 1 Stroke/TIA/Thromboembolism No: 0 Vascular Dz: CAD/PAD/Aortic Plaque Yes: 1 DM No: 0 Total Score 3 Assessment/Plan #Persistent atrial fibrillation s/p RFA (Aug 2024) h/o Cardioversion: Yes; AAD Use: Amiodarone 100mg (current) Dofetilide 250mcg BID (stopped due to breakthrough, QT prolongation at higher doses); Anticoagulation use: Apixaban 5mg BID (current); h/o Ablation: Yes; [id number] Score: 4 c/w AC: Apixaban 5mg BID - ok to switch to coumadin for financial concerns. #ICM, NSVT s/p dcICD (MDT Jun 2023) Patient has a [employer] Dual chamber ICD. Anticipated battery longevity 12.4yrs (as of 11/07/23). RA pacing <0.1%, RV pacing 10.4%. Arrhythmias noted on interrogation: AF/AFL Lead parameters stable with steady impedance and thresholds noted: Stable c/t to follow with device clinic as schedule #Dizziness Unclear etiology of dizziness seems to be unrelated to atrial fibrillation/atrial flutter since patient continues to have these episodes in the presence sinus rhythm. And mostly appears to be orthostatic in nature and likely autonomic dysfunction is the culprit. Patient symptoms have been alternating but he says that midodrine has helped Midodrine 10 mg 3 times daily If symptoms continue to worsen may need to consider autonomic neurology consultation Return to Clinic: Patient should return to the EP Clinic in 6 months Lior Vlileda MD [facility] Cardiac Electrophysiology [email or web address] Disclaimer: This note was dictated by speech recognition, and every effort has been made to prevent any error in assistant professor of biology, however minor errors may be present documented in this encounter [facility] Work Phone: 12-09-2023 Discharge summary Note Date/Time December 09, 2023 4:41pm [place] [address] Discharge Summary Signed Patient: Harriett Thakkar MR#: [id number] : 1965 Acct:[id number] Age/Sex: 58 / M Adm Date: 4 Loc: 3T Room: [address] [place] [address]: Ryley Higgins DO Copies to: DO Toby Green MD~ Providers Date of Discharge: 12/09/23 Discharging Provider: Ryley Higgins Primary Care Provider: Toby Amador Consults: 12/07/23 17:17 Consult to Dietitian Routine Comment: Reason for Consult: Non-Healing Wound/s Consult to Sleep Lab Routine Comment: Physician Instructions: 12/07/23 17:24 Consult to Cardiology Routine Comment: Consulting Provider: Angel Griggs Reason For Exam: fell multiple times, orthostatic hypotension Has Provider Been Notified: Yes Date of Notification: 12/07/23 Time of Notification: 17:44 Discharge Diagnosis (1) Orthostatic hypotension: (2) A-fib: (3) Multiple falls: (4) Orthostatic hypotension dysautonomic syndrome: (5) Peripheral arterial disease: (6) ARLET (obstructive sleep apnea): (7) BMI 38.0-38.9,adult: (8) Diabetes mellitus: (9) Paroxysmal atrial fibrillation: (10) History of PTCA 1: Final Diagnosis Final Discharge Diagnosis: Symptomatic orthostatic hypotension, with multiple falls at home. Known history of autonomic dysreflexia. Recent problems with atrial fibrillation with rapid ventricular response, cardioverted to normal sinus rhythm on the outpatient basis 1 week before this presentation. Obstructive sleep apnea, noncompliant with sleep apnea machine Summary Hospital Course Hospital course: This is a 58-year-old man who came to the emergency room after having multiple falls at home over couple days. In the emergency room his blood pressure was only 78/43. The emergency room gave him IV fluids but he remains symptomatic oforthostatic hypotension. He does have a known history of autonomic dysreflexia and normally takes midodrine 10 mg 3 times a day. Over the last couple months he has had a lot of problems with atrial fibrillation with rapid ventricular response and had been placed on amiodarone. 1 week before this hospital presentation he had been cardioverted by cardiology on an outpatient basis with jainism of normal sinus rhythm. Cardiology had been using amiodarone and metoprolol to help maintain normal heart rate and avoid paroxysms of rapid ventricular response. The patient seems to have had some difficulty voiding urine and so 1 month before this hospital presentation his PCP had placed him on Flomax. Originally the patient was admitted observation status hoping that with some IV fluids his orthostatic hypotension would improve by the next day. But the next morning he was still acutely symptomatic of this. He had no symptomatology while lying flat but he had systolic blood pressures in the 70s range when seated upright and was visibly uncomfortable and still could not stand up. Therefore he was switched to inpatient status and cardiology was consulted. Under cardiology's guidance his metoprolol was de-escalated and stopped. His ProAmatine to 10 mg p.o. 3 times daily was continued. During the entire time hewas here in the hospital his Flomax was not provided and he did not complain of any urinary difficulty with voiding or urinary stream. His Lasix home dose was not provided here during hospital stay and he had minimal leg edema during the hospital stay. On the last hospital day when he was upright his systolic blood pressure would still drop to 90 but he was able to ambulate and it was much less symptomatic and he requested to go home and not spend another night in the hospital. Cardiology reduced his dose of amiodarone 200 mg a day and recommended that he stop metoprolol succinate, which had been 25 milligrams, completely. I continue to have the following recommendations for his outpatient care: Do not use Flomax. Follow-up with PCP to consider a different medication or treatment to help with micturition. Do not use Lasix, and less leg edema becomes troublesome. Follow-up in the cardiology office with Dr. Angel Griggs. Given the very strong link between obstructive sleep apnea and atrial fibrillation I recommend that he retry becoming compliant with his sleep apnea machine. Condition Condition at Discharge: Stable Status at Discharge Functional status at discharge: independent ambulation Overall status at discharge: patient is progressing back to baseline Time Spent with Patient Time spent providing/coordinating discharge services (# min): 12 Diagnostic Studies Completed and Pending Studies Labs on day of discharge: 12/09/23 11:04: POC Glucose 140, POC Glucose Comment Glu2: cleaned meter 12/09/23 06:57: POC Glucose 129 12/09/23 06:47: Total Cortisol 8.3 12/08/23 21:30: Urine Color Yellow, Urine Appearance Clear, Urine pH 5.5, Ur Specific Coleman 1.015, Urine Protein Negative, Urine Glucose (UA) 250 H, Urine Ketones Negative, Urine Occult Blood Negative, Urine Nitrite Negative, Urine Bilirubin Negative, Urine Urobilinogen Normal, Ur Leukocyte Esterase Negative 12/08/23 20:25: POC Glucose 136 12/08/23 16:40: POC Glucose 161 Exam Physical Exam Vital Signs: Temp Pulse Resp BP Pulse Ox O2 Del Method 98 F 71 18 132/86 93 L Room Air 12/09/23 15:05 12/09/23 15:05 12/09/23 15:05 12/09/23 15:05 12/09/23 15:05 12/09/23 15:05 Narrative: Physical examination was deferred on the last hospital day. Therefore my physician visit is not billable. Discharge Plan Discharge Plan Patient Disposition: Home Activity: No Activity Restriction Diet: Regular Additional Instructions: Increase fluid intake, wear compression stocking and change position gradually Instructions: Orthostatic Hypotension (DC) Prescriptions: New amiodarone 100 mg Tablet 100 mg PO QAM 30 Days Qty: 30 12RF Continued metformin 850 mg tablet 850 mg [...] 2 gm of carbohydrates eaten at meals magnesium oxide 400 mg (241.3 mg magnesium) Tablet 400 mg PO DAILY Qty: 30 0RF levofloxacin 500 mg tablet 500 mg PO DAILY omeprazole 40 mg capsule,delayed release(DR/EC) 40 mg PO DAILY linezolid 600 mg tablet 600 mg PO BID clopidogrel 75 mg tablet 75 mg PO DAILY potassium chloride 10 mEq Capsule, Extended Release 20 meq PO DAILY midodrine 2.5 mg tablet 10 mg PO TID Patient Comments: TAKE 1 TABLET BY MOUTH THREE TIMES DAILY Ozempic 1 mg/dose (4 mg/3 mL) pen injector 2 mg SUBCUT QWEEK Patient Comments: INJECT 1MG UNDER THE SKIN ONE DAY A WEEK Rx Instructions: tuesday insulin glargine-yfgn [Semglee(insulin glargine-yfgn)] 100 unit/mL solution 35 unit SUBCUT DAILY Eliquis 5 mg tablet 5 mg PO Q12H 30 Days Qty: 60 12RF citalopram [Celexa] 20 mg tablet 20 mg PO DAILY trazodone 50 mg tablet 50 mg PO QHS Held tamsulosin [Flomax] 0.4 mg capsule 0.4 mg PO DAILY Hold Instructions: Resume on 12/23/23. Hold this and discuss with Dr. Griggs when you see him. Discontinued metoprolol succinate 25 mg tablet extended release 24 hr 50 mg PO DAILY Qty: 30 0RF furosemide 20 mg tablet 40 mg PO DAILY Patient Comments: TK 1 T PO D amiodarone 200 mg tablet 200 mg PO BID 30 Days Qty: 90 0RF Follow Up: Ronal Tinajero [Other] - 12/16/23 2:30 pm Angel Griggs MD [Active Staff] - 04/12/24 9:50 am Toby Amador MD [Primary Care Provider] - (Office is currently closed. Call office on Tuesday to schedule follow-up with your Primay Care Provider in 3-5 days. ) Documented By: Ryley Higgins DO [id number] Signed By: <Electronically signed by Ryley Higgins, > 12/09/23 4724 [facility] Work Phone: 1(896) 133-321203-22-2024 Progress note Author Dallas Em [facility] December 09, 2023 1:43pm Note Date/Time December 09, 2023 1:4 2pm [facility] [address] [place] [address] Cardiology Progress Note Signed Patient: Harriett Thakkar MR#: [id number] : 1965 Acct:[id number] Age/Sex: 58 / M Adm Date: 4 Loc: Room: [address] [place] [address] Type: ADM IN Attending Dr: Ryley Higgins DO Copies to: ~ Date of Service: 12/09/2023 Subjective Interval history: Patient feels better but continues to have orthostatic symptomatology Exam Physical Exam Vital Signs: Temp Pulse Resp BP Pulse Ox O2 Del Method 97.3 F L 77 18 149/92 H 93 L Room Air 12/09/23 11:58 12/09/23 11:58 12/09/23 11:58 12/09/23 11:58 12/09/23 11:58 12/09/23 11:58 Eyes General: appearance normal, both eyes and [...] Heart Sounds: S1 normal and S2 normal Skin General: no rashes or lesions noted and dry skin Neuro General: patient alert, patient awake, patient oriented x3, tone normal and moves all extremities Psych Mental Status: mental status grossly normal Objective Labs 12/08/23 06:45 12/08/23 06:45 Labs: Laboratory Results - last 24 hr 12/08/23 12/08/23 12/08/23 16:40 20:25 21:30 POC Glucose 161 136 POC Glucose Comment Total Cortisol Urine Color Yellow Urine Appearance Clear Urine pH 5.5 Ur Specific Coleman 1.015 Urine Protein Negative Urine Glucose (UA) 250 H Urine Ketones Negative Urine Occult Blood Negative Urine Nitrite Negative Urine Bilirubin Negative Urine Urobilinogen Normal Ur Leukocyte Esterase Negative 12/09/23 12/09/23 12/09/23 06:47 06:57 11:04 POC Glucose 129 140 POC Glucose Comment Glu2: cleaned meter Total Cortisol 8.3 Urine Color Urine Appearance Urine pH Ur Specific Coleman Urine Protein Urine Glucose (UA) Urine Ketones Urine Occult Blood Urine Nitrite Urine Bilirubin Urine Urobilinogen Ur Leukocyte Esterase A&P - Cardiology (1) Orthostatic hypotension: Code(s): I95.1 - Orthostatic hypotension Plan Assessment 1. Symptomatic orthostatic hypotension with few falls related to that. Patientis known to have chronic diabetic autonomic insufficiency and uses midodrine regularly. This has been worsened by recent increase of amiodarone and metoprolol which was done to optimize his heart rate control. The need for thatis no longer present considering the patient was cardioverted last week 2. Coronary disease with prior PCI to LAD 3. Status post AICD implant 4. Persistent atrial fibrillation status post recent ablation. However he had several recurrences recently his last cardioversion was last week 5. Obesity 6. Diabetes mellitus with history of autonomic diabetic dysfunction with recurrent orthostatic hypotension 7. Obesity Plan 1. Discontinue metoprolol. Continue amiodarone 100 mg daily 2. Continue the use of midodrine 10 mg p.o. 3 times daily 3. Morning cortisol level was normal at 8.3 4. It is likely the patient will continue to experience occasional orthostatic symptomatology due to his autonomic dysfunction. I advised him to increase his fluid intake, wear compression stocking and change position gradually 5. Patient can be discharged home with follow-up with his primary final installer inspector Dr. Keene in 6 to 8 weeks Documented By: Dallas Em MD 12/09/23 1341 Signed By: <Electronically signed by MD Dallas Em> 12/09/23 1343 [facility] Work Phone: 1(323) 535-186303-22-2024 Progress note Author Dallas Em [facility] December 09, 2023 1:43pm Note Date/Time December 09, 2023 1:4 2pm [facility] [address] [place] [address] Cardiology Progress Note Signed Patient: Harriett Thakkar MR#: [id number] : 1965 Acct:[id number] Age/Sex: 58 / M Adm Date: 4 Loc: Room: [address] [place] [address] Type: ADM IN Attending Dr: Ryley Higgins DO Copies to: ~ Date of Service: 12/09/2023 Subjective Interval history: Patient feels better but continues to have orthostatic symptomatology Exam Physical Exam Vital Signs: Temp Pulse Resp BP Pulse Ox O2 Del Method 97.3 F L 77 18 149/92 H 93 L Room Air 12/09/23 11:58 12/09/23 11:58 12/09/23 11:58 12/09/23 11:58 12/09/23 11:58 12/09/23 11:58 Eyes General: appearance normal, both eyes and [...] Heart Sounds: S1 normal and S2 normal Skin General: no rashes or lesions noted and dry skin Neuro General: patient alert, patient awake, patient oriented x3, tone normal and moves all extremities Psych Mental Status: mental status grossly normal Objective Labs 12/08/23 06:45 12/08/23 06:45 Labs: Laboratory Results - last 24 hr 12/08/23 12/08/23 12/08/23 16:40 20:25 21:30 POC Glucose 161 136 POC Glucose Comment Total Cortisol Urine Color Yellow Urine Appearance Clear Urine pH 5.5 Ur Specific Coleman 1.015 Urine Protein Negative Urine Glucose (UA) 250 H Urine Ketones Negative Urine Occult Blood Negative Urine Nitrite Negative Urine Bilirubin Negative Urine Urobilinogen Normal Ur Leukocyte Esterase Negative 12/09/23 12/09/23 12/09/23 06:47 06:57 11:04 POC Glucose 129 140 POC Glucose Comment Glu2: cleaned meter Total Cortisol 8.3 Urine Color Urine Appearance Urine pH Ur Specific Coleman Urine Protein Urine Glucose (UA) Urine Ketones Urine Occult Blood Urine Nitrite Urine Bilirubin Urine Urobilinogen Ur Leukocyte Esterase A&P - Cardiology (1) Orthostatic hypotension: Code(s): I95.1 - Orthostatic hypotension Plan Assessment 1. Symptomatic orthostatic hypotension with few falls related to that. Patientis known to have chronic diabetic autonomic insufficiency and uses midodrine regularly. This has been worsened by recent increase of amiodarone and metoprolol which was done to optimize his heart rate control. The need for thatis no longer present considering the patient was cardioverted last week 2. Coronary disease with prior PCI to LAD 3. Status post AICD implant 4. Persistent atrial fibrillation status post recent ablation. However he had several recurrences recently his last cardioversion was last week 5. Obesity 6. Diabetes mellitus with history of autonomic diabetic dysfunction with recurrent orthostatic hypotension 7. Obesity Plan 1. Discontinue metoprolol. Continue amiodarone 100 mg daily 2. Continue the use of midodrine 10 mg p.o. 3 times daily 3. Morning cortisol level was normal at 8.3 4. It is likely the patient will continue to experience occasional orthostatic symptomatology due to his autonomic dysfunction. I advised him to increase his fluid intake, wear compression stocking and change position gradually 5. Patient can be discharged home with follow-up with his primary final installer inspector Dr. Keene in 6 to 8 weeks Documented By: Dallas Em MD 12/09/23 1341 Signed By: <Electronically signed by MD Dallas Em> 12/09/23 1343 [facility] Work Phone: 1(868) 976-769403-21-2024 Consult note Author Dallas Em [facility] December 08, 2023 11:13am Note Date/Time December 08, 2023 11: 03am [facility] [address] [place] [address] Cardiology Consult Note Signed Patient: Harriett Thakkar MR#: [id number] : 1965 Acct:[id number] Age/Sex: 58 / M Adm Date: 4 Loc: Room: [address] [place] [address] Type: ADM INOo Attending Dr: Ryley Higgins DO Copies to: DO Toby Green MD Mourhaf A Traboulssi, MD~ Cardiology HPI History of Present Illness Consult Date: 12/08/23 Reason for Consult: Cardiac consultation requested for hypertension HPI: Mr. Thakkar is a 58 year old male well-known to me.male with known history of atrial fibrillation/flutter underwent ablation in August with a recurrence of his arrhythmia requiring repeat cardioversion about 7 days ago presented to the hospital back complaining of sudden onset palpitation, fatigue, weakness, and several fall. Patient following recent hospitalization his cardiac medication was adjusted. His amiodarone and metoprolol were increased to optimize heart rate control. Patient does not have history of coronary artery disease with remote PCI to the LAD, diabetes, diabetic autonomic insufficiency with recurrentorthostatic hypotension and history of ventricular arrhythmia status post AICD implant. Patient denies chest pain or shortness of breath. On presentation theemergency room he was noted to be hypotensive. He did response to IV fluid. Heis feeling better. Patient is known to have a history of diabetic autonomic insufficiency and chronic orthostatic hypotension which I believe have worsened by recent increase of his amiodarone and metoprolol. This was done to optimize heart rate control few weeks back. At the time my evaluation the patient is resting comfortably in bed but continued to have orthostatic hypotension Review of Systems Review of Systems Review of systems: Patient reported orthostatic dizziness and hypotension with episode of low bloodpressure. He had few falls [facility] Medical History (Updated 12/07/23 @ 17:38 by Ryley Higgins DO) BMI 38.0-38.9,adult Peripheral arterial disease ARLET (obstructive sleep apnea) non-compliant with sleep apnea mask. Orthostatic hypotension CAD (coronary artery disease) Amputated toe of [...] Status: Never smoker Substance Use Type: None Meds Medications and Allergies Allergies penicillamine Allergy (Unknown, Verified 12/07/23 11:54) unknown Sulfa (Sulfonamide Antibiotics) Allergy (Unknown, Verified 12/07/23 11:54) Unknown Reaction PAULETTE Inhibitors Allergy (Verified 12/07/23 11:54) Cough Penicillins Allergy (Verified 12/07/23 11:54) Unknown Reaction Home Medications insulin aspart U-100 100 unit/mL subcutaneous solution See Rx Instructions .Route .COMPLEX diabetes 08/04/17 [History Confirmed 12/07/23] metformin 850 mg tablet 850 mg PO BID diabetes 08/04/17 [History Confirmed 12/07/23] atorvastatin 80 mg tablet 80 mg PO QPM 30 days #30 tabs 11/09/19 [Rx Confirmed 12/07/23] nitroglycerin 0.4 mg sublingual tablet (Nitrostat) 0.4 mg sublingual Q5-15M PRN Angina 30 days #25 tabs 11/12/19 [Rx Confirmed 12/07/23] clopidogrel 75 mg tablet 75 mg PO DAILY 07/04/20 [History Confirmed 12/07/23] furosemide 20 mg tablet 40 mg PO DAILY 07/04/20 [History Confirmed 12/07/23] insulin glargine-yfgn 100 unit/mL subcutaneous solution (Semglee (insulin glargine-yfgn)) 35 unit subcut DAILY 03/01/22 [History Confirmed 12/07/23] midodrine 2.5 mg tablet 10 mg PO TID 03/01/22 [History Confirmed 12/07/23] potassium chloride 10 mEq capsule,extended release 20 meq PO DAILY 03/01/22 [History Confirmed 12/07/23] semaglutide 1 mg/dose (4 mg/3 mL) subcutaneous pen injector (Ozempic) 2 mg subcut QWEEK 03/01/22 [History Confirmed 12/07/23] insulin aspart U-100 100 unit/mL (3 mL) subcutaneous pen See Protocol subcut AC 04/04/23 [History Confirmed 12/07/23] apixaban 5 mg tablet (Eliquis) 5 mg PO Q12H 30 days #60 tabs 10/20/23 [Rx Confirmed 12/07/23] tamsulosin 0.4 mg capsule (Flomax) 0.4 mg PO DAILY 10/28/23 [History Confirmed 12/07/23] magnesium oxide 400 mg (241.3 mg magnesium) tablet 400 mg PO DAILY #30 tabs 10/30/23 [Rx Confirmed 12/07/23] metoprolol succinate 25 mg tablet,extended release 24 hr 50 mg (2 x 25 mg) PO DAILY #30 tabs 10/30/23 [Rx Confirmed 12/07/23] amiodarone 200 mg tablet 200 mg PO BID 30 days #90 tabs 11/30/23 [Rx Confirmed 12/07/23] citalopram 20 mg tablet (Celexa) 20 mg PO DAILY 11/30/23 [History Confirmed 12/07/23] trazodone 50 mg tablet 50 mg PO QHS 11/30/23 [History Confirmed 12/07/23] levofloxacin 500 mg tablet 500 mg PO DAILY 12/07/23 [History Confirmed 12/07/23] linezolid 600 mg tablet 600 mg PO BID 12/07/23 [History Confirmed 12/07/23] omeprazole 40 mg capsule,delayed release 40 mg PO DAILY 12/07/23 [History Confirmed 12/07/23] Exam Physical Exam Vital Signs: Temp Pulse Resp BP Pulse Ox O2 Del Method 97.4 F L 82 18 100/67 91 L Room Air 12/08/23 09:20 12/08/23 09:20 12/08/23 09:20 12/08/23 09:20 12/08/23 09:20 12/08/23 09:20 Const General: cooperative, comfortable, no acute distress [...] Mental Status: mental status grossly normal Results - Cardiology Labs 12/08/23 06:45 12/08/23 06:45 Lab results: Cardiac Enzymes 12/07/23 Range/Units 12:33 AST 17 (13-39) U/L Total Creatine Kinase 33 (30-223) U/L B-Natriuretic Peptide 118.0 H (5-100) pg/mL CBC 12/07/23 12/08/23 Range/Units 12:33 06:45 RBC 4.28 3.94 (3.90-5.60) X10E6/uL Hgb 13.9 12.7 L (13.0-17.0) g/dL Hct 40.3 36.9 L (38.8-50.0) % Plt Count 196 161 (150-450) x10E3/uL Neut # (Auto) 5.2 3.5 (1.8-7.7) x10E3/uL Lymph # (Auto) 0.6 L 0.7 L (1.00-4.8) x10E3/uL Brantley # (Auto) 0.4 0.4 (0.0-0.8) x10E3/uL Eos # (Auto) 0.0 0.1 (0.0-0.45) x10E3/uL Baso # (Auto) 0.0 0.0 (0.0-0.2) x10E3/uL Comprehensive Metabolic Panel 12/07/23 12/08/23 Range/Units 12:33 06:45 Sodium 137 138 (136-145) mmol/L Potassium 4.3 3.8 (3.5-5.1) mmol/L Chloride 100 100 (98-107) mmol/L Carbon Dioxide 27.4 31.6 H (21.0-31.0) mmol/L BUN 20 24 (7-25) mg/dL Creatinine 1.23 1.36 H (0.70-1.30) mg/dL Glucose 107 H 156 H (70-100) mg/dL Calcium 9.4 9.0 (8.6-10.3) mg/dL Direct Bilirubin 0.30 H (0.03-0.18) mg/dL Indirect Bilirubin 0.8 mg/dL AST 17 (13-39) U/L ALT 18 (7-52) U/L Alkaline Phosphatase 63 (34-104) U/L Total Protein 6.1 L (6.4-8.9) gm/dL Albumin 3.9 (3.5-5.7) gm/dL Intake and Output 12/07/23 12/08/23 12/08/23 23:59 07:59 15:59 Intake Total 360 / 1360 Balance 360 / 1360 Intake: Oral 360 / 360 Other: # Unmeasured Voids 2 # Bowel Movements 1 Weight 136.5 kg 135.8 kg Date of Last Bowel Movement 12/07/23 Patient Weight 12/08/23 23:59 Weight 135.8 kg Lab 12/07/23 12:33 PT 19.8 H INR 1.8 APTT 33.6 EKG Interpretations EKG Attestation EKG: I reviewed this ECG and interpreted as documented below: (Normal sinus rhythm with poor R wave progression anterior lead) A&P - Cardiology (1) Orthostatic hypotension: Code(s): I95.1 - Orthostatic hypotension Plan Assessment 1. Symptomatic orthostatic hypotension with few falls related to that. Patientis known to have chronic diabetic autonomic insufficiency and uses midodrine regularly. This has been worsened by recent increase of amiodarone and metoprolol which was done to optimize his heart rate control. The need for thatis no longer present considering the patient was cardioverted last week 2. Coronary disease with prior PCI to LAD 3. Status post AICD implant 4. Persistent atrial fibrillation status post recent ablation. However he had several recurrences recently his last cardioversion was last week 5. Obesity 6. Diabetes mellitus with history of autonomic diabetic dysfunction with recurrent orthostatic hypotension 7. Obesity Plan 1. I agree with gentle hydration. I will reduce the dose of amiodarone to oncedaily I will hold metoprolol for now and plan to reintroduce at half the dose ifblood pressure recovered 2. Continue the use of midodrine 3. Will check morning plasma cortisol Documented By: Dallas Em MD 12/08/23 1101 Signed By: <Electronically signed by MD Dallas Em> 12/08/23 [address] [facility] Work Phone: 1(602) 352-316003-21-2024 Progress note Author Ryley Higgins [facility] December 08, 2023 10:25am Note Date/Time December 08, 2023 10: 25am [facility] [address] [place] [address] Hospitalist Progress Note Signed Patient: Harriett Thakkar MR#: [id number] : 1965 Acct:[id number] Age/Sex: 58 / M Adm Date: 4 Loc: 3T Room: [address] [place] [address] Type: ADM INOo Attending Dr: Ryley Higgins DO Copies to: ~ Date of Service: 12/08/2023 Subjective Subjective Narrative: This morning when I walk into the room the bedside nurses just got orthostatic vitals. There are as follows: Lying flat his blood pressure is 100/67. His pulse was 82 on pulse oximeter. Sitting his blood pressure dropped to 86/59 and his pulse was 81. Standing up his blood pressure dropped to 56/41. Looking on the monitor his heart rate is at about 70 bpm but with a normal sinusrhythm and no A-fib. The patient is much less symptomatic of the lightheadedness and dizziness today,compared to yesterday evening, when I could only have him stand up for a couple moments before he had to sit back down. And sitting on the edge of the bed he reports that his orthostatic dizziness improved after the nurses did not. He denies other problems at this time: No headache. No chest pain or palpitations. No sensation of tachycardia. No fevers or chills. I discussed supportive stockings with him. He says he has some difficulty getting these on at home so he is disinclined to use them. He does say that sometimes he will use supportive diabetic socks. Exam Physical Exam Vital Signs: Temp Pulse Resp BP Pulse Ox O2 Del Method 97.4 F L 82 18 100/67 91 L Room Air 12/08/23 09:20 12/08/23 09:20 12/08/23 09:20 12/08/23 09:20 12/08/23 09:20 12/08/23 09:20 Narrative: Lungs: Clear to auscultation bilaterally, no wheezing, no crackles. Heart: Regular rate and rhythm, no murmurs, rubs, or gallops. Abdomen: Soft, normal bowel sounds, no rigidity, guarding, or acute peritoneal signs. Extremities: No swelling or cords in the calves bilaterally, does have 2+ chronic looking edema in the ankles bilaterally. This actually looks improved on the next morning, likely due to leg elevation while he was in bed all night. I do not see any swelling or knots in the calves bilaterally. Objective Lab Results 12/08/23 06:45 12/08/23 06:45 Meds Allergies and Active Meds Allergies penicillamine Allergy (Unknown, Verified 12/07/23 11:54) unknown Sulfa (Sulfonamide Antibiotics) Allergy (Unknown, Verified 12/07/23 11:54) Unknown Reaction PAULETTE Inhibitors Allergy (Verified 12/07/23 11:54) Cough Penicillins Allergy (Verified 12/07/23 11:54) Unknown Reaction Active Meds: Active Medications Generic Name Dose Route Start Last Admin Trade Name Jeffry PRN Reason Stop Dose Admin Apixaban 5 mg 12/07/23 21:00 12/08/23 09:57 Apixaban 5 Mg Tablet PO 12/06/24 20:59 5 mg BID RADHA Administration Atorvastatin Calcium 80 mg 12/07/23 21:00 12/07/23 21:20 Atorvastatin 80 Mg Tablet PO 12/06/24 20:59 80 mg QPM RADHA Administration Citalopram Hydrobromide 20 mg 12/08/23 09:00 12/08/23 09:56 Citalopram 20 Mg Tablet PO 12/07/24 08:59 20 mg DAILY RAHDA Administration Clopidogrel Bisulfate 75 mg 12/08/23 09:00 12/08/23 09:56 Clopidogrel Bisulfate 75 Mg Tablet PO 12/07/24 08:59 75 mg DAILY RADHA Administration Dextrose 0 gm 12/07/23 17:24 Dextrose 50% In Water 25 Gm/50 Ml Syringe IV-PUSH 12/06/24 17:23 PRN PRN Hypoglycemia Glucose 0 gm 12/07/23 17:24 Dextrose 40% Gel 15 Gm Tube PO 12/06/24 17:23 PRN PRN Hypoglycemia Insulin Aspart 0 units 12/07/23 22:00 12/08/23 10:00 Insulin Aspart 300 Units/3 Ml Insuln.Pen SUBCUT 12/06/24 21:59 1 units TID.WM.HS RADHA Administration Protocol Insulin Glargine 35 units 12/08/23 09:00 12/08/23 10:00 Insulin Glargine 300 Units/3 Ml Insuln.Pen SUBCUT 12/07/24 08:59 35 units DAILY RADHA Administration Magnesium Oxide 400 mg 12/08/23 11:30 Magnesium Oxide 400 Mg Tablet PO 12/07/24 11:29 DAILY.AC.LUNCH RADHA Metformin HCl 850 mg 12/08/23 08:00 12/08/23 09:57 Metformin 850 Mg Tablet PO 12/07/24 07:59 850 mg BID.WITH.MEALS RADHA Administration Metoprolol Succinate 25 mg 12/08/23 09:00 12/08/23 09:56 Metoprolol Succinate 25 Mg Tab.Er.24h PO 12/07/24 08:59 25 mg DAILY RADHA Administration Midodrine 10 mg 12/07/23 18:00 12/08/23 06:31 Midodrine 5 Mg Tablet PO 12/06/24 17:59 10 mg TID.7A.12P.5P RADHA Administration Nitroglycerin 0.4 mg 12/07/23 17:26 Nitroglycerin 0.4 Mg Tab.Subl SUBLINGUAL 12/06/24 17:25 Q5M PRN Angina Pantoprazole Sodium 40 mg 12/07/23 21:00 12/08/23 09:56 Pantoprazole 40 Mg Tablet.Dr PO 12/06/24 20:59 40 mg BID RADHA Administration Potassium Chloride 20 meq 12/08/23 09:00 12/08/23 09:56 Potassium Chloride Er 10 Meq Capsule.Er PO 12/07/24 08:59 20 meq DAILY RADHA Administration Sodium Chloride 0 ml 12/07/23 11:53 12/07/23 12:21 Sodium Chloride 0.9 % 10 Ml Syringe IV-PUSH 12/06/24 11:52 10 ml PRN PRN Administration Flush Sodium Chloride 0 ml 12/07/23 22:00 12/08/23 09:59 Sodium Chloride 0.9 % 10 Ml Syringe IV-PUSH 12/06/24 21:59 10 ml QSHIFT RADHA Administration Trazodone HCl 50 mg 12/07/23 22:00 12/07/23 21:20 Trazodone 50 Mg Tablet PO 12/06/24 21:59 50 mg QHS RADHA Administration A&P - Hospitalist Assessment/Plan (1) Orthostatic hypotension dysautonomic syndrome: (2) Multiple falls: (3) A-fib: (4) Orthostatic hypotension: (5) Hyperlipidemia: (6) Diabetes mellitus: (7) ARLET (obstructive sleep apnea): (8) Peripheral arterial disease: (9) BMI 38.0-38.9,adult: Plan Assessment: Recurrent orthostatic hypotension in a patient with known dysautonomia. Multiple falls at home with collapse. Persistent orthostatic hypotension despite IV fluids in emergency room. Paroxysmal atrial fibrillation, status post cardioversion 7 days ago. Diabetes mellitus type 2. Obstructive sleep apnea?noncompliant with sleep apnea machine. Prefer arterial disease. Hyperlipidemia. Apparent history of BPH as he is on Flomax. BMI of 38.6. Plan: Will give 25 g of IV albumin one-time now and await cardiology input. For now, the following medication changes have been made from his home regimen. Holding Flomax. Holding amiodarone. Holding the Lasix he normally takes at home in the morning. On a reduced: TOPROL dose from 50 mg daily to 25 mg daily and monitor for any rebound tachycardia. Documented By: Ryley Higgins DO 1021 Signed By: <Electronically signed by Ryley Higgins DO> 12/08/23 [address] [facility] Work Phone: 1(399) 385-226003-21-2024 Progress note Author Ryley Higgins [facility] December 08, 2023 10:25am Note Date/Time December 08, 2023 10: 25am [facility] [address] [place] [address] Hospitalist Progress Note Signed Patient: Harriett Thakkar MR#: [id number] : 1965 Acct:[id number] Age/Sex: 58 / M Adm Date: 4 Loc: Room: [address] [place] [address] Type: ADM INOo Attending Dr: Ryley Higgins DO Copies to: ~ Date of Service: 12/08/2023 Subjective Subjective Narrative: This morning when I walk into the room the bedside nurses just got orthostatic vitals. There are as follows: Lying flat his blood pressure is 100/67. His pulse was 82 on pulse oximeter. Sitting his blood pressure dropped to 86/59 and his pulse was 81. Standing up his blood pressure dropped to 56/41. Looking on the monitor his heart rate is at about 70 bpm but with a normal sinusrhythm and no A-fib. The patient is much less symptomatic of the lightheadedness and dizziness today,compared to yesterday evening, when I could only have him stand up for a couple moments before he had to sit back down. And sitting on the edge of the bed he reports that his orthostatic dizziness improved after the nurses did not. He denies other problems at this time: No headache. No chest pain or palpitations. No sensation of tachycardia. No fevers or chills. I discussed supportive stockings with him. He says he has some difficulty getting these on at home so he is disinclined to use them. He does say that sometimes he will use supportive diabetic socks. Exam Physical Exam Vital Signs: Temp Pulse Resp BP Pulse Ox O2 Del Method 97.4 F L 82 18 100/67 91 L Room Air 12/08/23 09:20 12/08/23 09:20 12/08/23 09:20 12/08/23 09:20 12/08/23 09:20 12/08/23 09:20 Narrative: Lungs: Clear to auscultation bilaterally, no wheezing, no crackles. Heart: Regular rate and rhythm, no murmurs, rubs, or gallops. Abdomen: Soft, normal bowel sounds, no rigidity, guarding, or acute peritoneal signs. Extremities: No swelling or cords in the calves bilaterally, does have 2+ chronic looking edema in the ankles bilaterally. This actually looks improved on the next morning, likely due to leg elevation while he was in bed all night. I do not see any swelling or knots in the calves bilaterally. Objective Lab Results 12/08/23 06:45 12/08/23 06:45 Meds Allergies and Active Meds Allergies penicillamine Allergy (Unknown, Verified 12/07/23 11:54) unknown Sulfa (Sulfonamide Antibiotics) Allergy (Unknown, Verified 12/07/23 11:54) Unknown Reaction PAULETTE Inhibitors Allergy (Verified 12/07/23 11:54) Cough Penicillins Allergy (Verified 12/07/23 11:54) Unknown Reaction Active Meds: Active Medications Generic Name Dose Route Start Last Admin Trade Name Freq PRN Reason Stop Dose Admin Apixaban 5 mg 12/07/23 21:00 12/08/23 09:57 Apixaban 5 Mg Tablet PO 12/06/24 20:59 5 mg BID RADHA Administration Atorvastatin Calcium 80 mg 12/07/23 21:00 12/07/23 21:20 Atorvastatin 80 Mg Tablet PO 12/06/24 20:59 80 mg QPM RADHA Administration Citalopram Hydrobromide 20 mg 12/08/23 09:00 12/08/23 09:56 Citalopram 20 Mg Tablet PO 12/07/24 08:59 20 mg DAILY RADHA Administration Clopidogrel Bisulfate 75 mg 12/08/23 09:00 12/08/23 09:56 Clopidogrel Bisulfate 75 Mg Tablet PO 12/07/24 08:59 75 mg DAILY RADHA Administration Dextrose 0 gm 12/07/23 17:24 Dextrose 50% In Water 25 Gm/50 Ml Syringe IV-PUSH 12/06/24 17:23 PRN PRN Hypoglycemia Glucose 0 gm 12/07/23 17:24 Dextrose 40% Gel 15 Gm Tube PO 12/06/24 17:23 PRN PRN Hypoglycemia Insulin Aspart 0 units 12/07/23 22:00 12/08/23 10:00 Insulin Aspart 300 Units/3 Ml Insuln.Pen SUBCUT 12/06/24 21:59 1 units TID.WM.HS RADHA Administration Protocol Insulin Glargine 35 units 12/08/23 09:00 12/08/23 10:00 Insulin Glargine 300 Units/3 Ml Insuln.Pen SUBCUT 12/07/24 08:59 35 units DAILY RADHA Administration Magnesium Oxide 400 mg 12/08/23 11:30 Magnesium Oxide 400 Mg Tablet PO 12/07/24 11:29 DAILY.AC.LUNCH RADHA Metformin HCl 850 mg 12/08/23 08:00 12/08/23 09:57 Metformin 850 Mg Tablet PO 12/07/24 07:59 850 mg BID.WITH.MEALS RADHA Administration Metoprolol Succinate 25 mg 12/08/23 09:00 12/08/23 09:56 Metoprolol Succinate 25 Mg Tab.Er.24h PO 12/07/24 08:59 25 mg DAILY RADHA Administration Midodrine 10 mg 12/07/23 18:00 12/08/23 06:31 Midodrine 5 Mg Tablet PO 12/06/24 17:59 10 mg TID.7A.12P.5P RADHA Administration Nitroglycerin 0.4 mg 12/07/23 17:26 Nitroglycerin 0.4 Mg Tab.Subl SUBLINGUAL 12/06/24 17:25 Q5M PRN Angina Pantoprazole Sodium 40 mg 12/07/23 21:00 12/08/23 09:56 Pantoprazole 40 Mg Tablet.Dr PO 12/06/24 20:59 40 mg BID RADHA Administration Potassium Chloride 20 meq 12/08/23 09:00 12/08/23 09:56 Potassium Chloride Er 10 Meq Capsule.Er PO 12/07/24 08:59 20 meq DAILY RADHA Administration Sodium Chloride 0 ml 12/07/23 11:53 12/07/23 12:21 Sodium Chloride 0.9 % 10 Ml Syringe IV-PUSH 12/06/24 11:52 10 ml PRN PRN Administration Flush Sodium Chloride 0 ml 12/07/23 22:00 12/08/23 09:59 Sodium Chloride 0.9 % 10 Ml Syringe IV-PUSH 12/06/24 21:59 10 ml QSHIFT RADHA Administration Trazodone HCl 50 mg 12/07/23 22:00 12/07/23 21:20 Trazodone 50 Mg Tablet PO 12/06/24 21:59 50 mg QHS RADHA Administration A&P - Hospitalist Assessment/Plan (1) Orthostatic hypotension dysautonomic syndrome: (2) Multiple falls: (3) A-fib: (4) Orthostatic hypotension: (5) Hyperlipidemia: (6) Diabetes mellitus: (7) ARLET (obstructive sleep apnea): (8) Peripheral arterial disease: (9) BMI 38.0-38.9,adult: Plan Assessment: Recurrent orthostatic hypotension in a patient with known dysautonomia. Multiple falls at home with collapse. Persistent orthostatic hypotension despite IV fluids in emergency room. Paroxysmal atrial fibrillation, status post cardioversion 7 days ago. Diabetes mellitus type 2. Obstructive sleep apnea?noncompliant with sleep apnea machine. Prefer arterial disease. Hyperlipidemia. Apparent history of BPH as he is on Flomax. BMI of 38.6. Plan: Will give 25 g of IV albumin one-time now and await cardiology input. For now, the following medication changes have been made from his home regimen. Holding Flomax. Holding amiodarone. Holding the Lasix he normally takes at home in the morning. On a reduced: TOPROL dose from 50 mg daily to 25 mg daily and monitor for any rebound tachycardia. Documented By: Ryley Higgins DO 1021 Signed By: <Electronically signed by Ryley Higgins DO> 12/08/23 [address] [facility] Work Phone: 1([phone]) 790-236803-20-2024 History and physical note Author Ryley Higgins [facility] December 07, 2023 5:42pm Note Date/Time December 07, 2023 5:4 1pm [facility] [address] [place] [address] Hospitalist H&P Signed Patient: Harriett Thakkar MR#: [id number] : 1965 Acct:[id number] Age/Sex: 58 / M Adm Date: 4 Loc: Room: [address] [place] [address] Type: ADM INOo Attending Dr: Ryley Higgins DO Copies to: DO Toby Green MD~ HPI DATE OF EXAMINATION: 12/07/23 CHIEF COMPLAINT: Multiple falls with low blood pressure for 3 days. HISTORY OF PRESENT ILLNESS: This is a 1-year-old man who came to the emergency room after having multiple falls, especially yesterday and today. In the emergency room his blood pressurewas only 78/43. He had taken both his usual dose of midodrine this morning as well as his usual dose of Toprol this morning. In the emergency room he was given 1 L of IV fluids but when they set the patient up his systolic blood pressure dropped only 77 and so it was decided that he should be put in hospitalovernight. The patient explains that he had a cardioversion exactly 7 days ago by his final installer inspector. He has been seeing both Dr. Em and Dr. Griggs. He has been hopeful that he has been in normal sinus rhythm after the cardioversion last Tuesday. He has a complicated history with atrial fibrillation and flutter that becomes rapidly ventricular responsive. He had an ablation in August but after that had hospital presentations with recurrent rapid ventricular response. Back on October 29 a decision was made to increase his amiodarone and Toprol dose. The patient reports that he was in his usual state of health last week until when he could feel that he was getting lightheaded and also some shortness of breath. He began having the sensation that he was lightheaded withany upright physical activity. He had family member stay at the house to watch him. Yesterday he had 2 major falls. One of them was while ambulating slowly. The second 1 was while he was in the bathroom (likely in the middle or the end of micturition) and he had a fall from standing level. While doing the intake with the admissions nurse the patient was questioned about sleep apnea. He explains that he breathes through his mouth so he could not find a mask that would be useful for him. Therefore he has not been using his sleep apnea machine for a long time. He did comment that he understands thelink between obstructive sleep apnea and his atrial fibrillation. Today while I am checking him in his blood pressure while he is lying flat in bed is actually fairly good. The nurse got 108/62. I got 132/65. But then I had him sit upright on the edge of the bed and his blood pressure dropped to 82/62 and he looks symptomatic of the hypotension. I had him stand up briefly but he was uncomfortable so we had to sit him back down and his blood pressure seated back on the edge of the bed again was 79/57. Review of Systems Review of Systems Review of systems: 10 systems are reviewed and are negative except as mentioned elsewhere in the documentation. [facility] Medical History (Updated 12/07/23 @ 17:38 by Ryley Higgins DO) BMI 38.0-38.9,adult Peripheral arterial disease ARLET (obstructive sleep apnea) non-compliant with sleep apnea mask. Orthostatic hypotension CAD (coronary artery disease) Amputated toe of [...] Status: Never smoker Substance Use Type: None Meds Medications and Allergies Allergies penicillamine Allergy (Unknown, Verified 12/07/23 11:54) unknown Sulfa (Sulfonamide Antibiotics) Allergy (Unknown, Verified 12/07/23 11:54) Unknown Reaction PAULETTE Inhibitors Allergy (Verified 12/07/23 11:54) Cough Penicillins Allergy (Verified 12/07/23 11:54) Unknown Reaction Home Medications insulin aspart U-100 100 unit/mL subcutaneous solution See Rx Instructions .Route .COMPLEX diabetes 08/04/17 [History Confirmed 12/07/23] metformin 850 mg tablet 850 mg PO BID diabetes 08/04/17 [History Confirmed 12/07/23] atorvastatin 80 mg tablet 80 mg PO QPM 30 days #30 tabs 11/09/19 [Rx Confirmed 12/07/23] nitroglycerin 0.4 mg sublingual tablet (Nitrostat) 0.4 mg sublingual Q5-15M PRN Angina 30 days #25 tabs 11/12/19 [Rx Confirmed 12/07/23] clopidogrel 75 mg tablet 75 mg PO DAILY 07/04/20 [History Confirmed 12/07/23] furosemide 20 mg tablet 40 mg PO DAILY 07/04/20 [History Confirmed 12/07/23] insulin glargine-yfgn 100 unit/mL subcutaneous solution (Semglee (insulin glargine-yfgn)) 50 unit subcut DAILY 03/01/22 [History Confirmed 12/07/23] midodrine 2.5 mg tablet 10 mg PO TID 03/01/22 [History Confirmed 12/07/23] potassium chloride 10 mEq capsule,extended release 20 meq PO DAILY 03/01/22 [History Confirmed 12/07/23] semaglutide 1 mg/dose (4 mg/3 mL) subcutaneous pen injector (Ozempic) 2 mg subcut QWEEK 03/01/22 [History Confirmed 12/07/23] insulin aspart U-100 100 unit/mL (3 mL) subcutaneous pen See Protocol subcut AC 04/04/23 [History Confirmed 12/07/23] apixaban 5 mg tablet (Eliquis) 5 mg PO Q12H 30 days #60 tabs 10/20/23 [Rx Confirmed 12/07/23] tamsulosin 0.4 mg capsule (Flomax) 0.4 mg PO DAILY 10/28/23 [History Confirmed 12/07/23] magnesium oxide 400 mg (241.3 mg magnesium) tablet 400 mg PO DAILY #30 tabs 10/30/23 [Rx Confirmed 12/07/23] metoprolol succinate 25 mg tablet,extended release 24 hr 50 mg (2 x 25 mg) PO DAILY #30 tabs 10/30/23 [Rx Confirmed 12/07/23] amiodarone 200 mg tablet 200 mg PO BID 30 days #90 tabs 11/30/23 [Rx Confirmed 12/07/23] citalopram 20 mg tablet (Celexa) 20 mg PO DAILY 11/30/23 [History Confirmed 12/07/23] trazodone 50 mg tablet 50 mg PO QHS 11/30/23 [History Confirmed 12/07/23] levofloxacin 500 mg tablet 500 mg PO DAILY 12/07/23 [History Confirmed 12/07/23] linezolid 600 mg tablet 600 mg PO BID 12/07/23 [History Confirmed 12/07/23] omeprazole 40 mg capsule,delayed release 40 mg PO DAILY 12/07/23 [History Confirmed 12/07/23] Exam Physical Exam Vital Signs: Temp Pulse Resp BP Pulse Ox O2 Del Method 98.3 F 75 20 108/73 95 Room Air 12/07/23 16:53 12/07/23 16:53 12/07/23 16:53 12/07/23 16:53 12/07/23 16:53 12/07/23 16:53 Narrative: GEN: BMI is 38.6. Does look visibly uncomfortable with lightheadedness just sitting upright in bed. Head: Normal Cephalic, Atraumatic. Eyes: Conjunctiva and sclera clear bilaterally. Nose: External nose and nares normal bilaterally. Mouth: Lips and tongue normal. Neck: No JVD. No thyromegaly. No lymphadenopathy. Lungs: Clear to auscultation bilaterally, no wheezing, no crackles. Heart: Regular rate and rhythm, no murmurs, rubs, or gallops. Abdomen: Soft, normal bowel sounds, no rigidity, guarding, or acute peritoneal signs. Extremities: No swelling or cords in the calves bilaterally, does have 2+ chronic looking edema in the ankles bilaterally. Skin: No systemic rashes or lesions. Veins are flat, despite IV fluids and theemergency room. Psychiatric: Calm. Conversant. Cooperative. Neuro: Awake, Alert, and Oriented x 3. No focal or lateralizing deficits. Results - Hospitalist H&P Lab Results Labs: Laboratory Last Values Corrected WBC 6.3 X10E3/uL (4.1-10.5) 12/07/23 12:33 Uncorrected WBC Count 6.3 x10E3/uL (4.1-10.5) 12/07/23 12:33 RBC 4.28 X10E6/uL (3.90-5.60) 12/07/23 12:33 Hgb 13.9 g/dL (13.0-17.0) 12/07/23 12:33 Hct 40.3 % (38.8-50.0) 12/07/23 12: MCV 94.3 fl (83.5-101) 12/07/23 12:33 MCH 32.5 pg (27.5-35.2) 12/07/23 12: MCHC 34.4 g/dL (32.5-35.6) 12/07/23 12:33 RDW 16.8 % (12.0-14.8) H 12/07/23 12:33 Plt Count 196 x10E3/uL (150-450) 12/07/23 12: MPV 8.2 fl (6.6-10.1) 12/07/23 12: Neut % (Auto) 82.9 % (.) 12/07/23 12: Lymph % (Auto) 9.2 % (.) 12/07/23 12:33 Brantley % (Auto) 6.6 % (.) 12/07/23 12: Eos % (Auto) 0.7 % (.) 12/07/23 12:33 Baso % (Auto) 0.6 % (.) 12/07/23 12:33 Nucleat RBC Rel Count 0.0 /100 WBC (0-0.5) 12/07/23 12: Neut # (Auto) 5.2 x10E3/uL (1.8-7.7) 12/07/23 12: Lymph # (Auto) 0.6 x10E3/uL (1.00-4.8) L 12/07/23 12:33 Brantley # (Auto) 0.4 x10E3/uL (0.0-0.8) 12/07/23 12: Eos # (Auto) 0.0 x10E3/uL (0.0-0.45) 12/07/23 12: Baso # (Auto) 0.0 x10E3/uL (0.0-0.2) 12/07/23 12:33 Monocyte Dist Width 18.44 % (0.00-20.00) 12/07/23 12:33 PT 19.8 Seconds (9.0-12.9) H 12/07/23 12:33 INR 1.8 12/07/23 12:33 APTT 33.6 Seconds (25.1-36.5) 12/07/23 12:33 PHA Creatinine Clear 93.69 12/07/23 12:33 Sodium 137 mmol/L (136-145) 12/07/23 12:33 Potassium 4.3 mmol/L (3.5-5.1) 12/07/23 12:33 Chloride 100 mmol/L (98-107) 12/07/23 12:33 Carbon Dioxide 27.4 mmol/L (21.0-31.0) 12/07/23 12:33 Anion Gap 13.9 mEq/L (6.0-15.0) 12/07/23 12:33 BUN 20 mg/dL (7-25) 12/07/23 12:33 Creatinine 1.23 mg/dL (0.70-1.30) 12/07/23 12:33 Est GFR (CKD-EPI) > 60.0 mL/Min 12/07/23 12:33 Glucose 107 mg/dL (70-100) H 12/07/23 12:33 Calcium 9.4 mg/dL (8.6-10.3) 12/07/23 12:33 Total Bilirubin 1.1 mg/dl (0.3-1.0) H 12/07/23 12:33 Direct Bilirubin 0.30 mg/dL (0.03-0.18) H 12/07/23 12:33 Indirect Bilirubin 0.8 mg/dL 12/07/23 12:33 AST 17 U/L (13-39) 12/07/23 12:33 ALT 18 U/L (7-52) 12/07/23 12:33 Alkaline Phosphatase 63 U/L (34-104) 12/07/23 12:33 Total Creatine Kinase 33 U/L (30-223) 12/07/23 12:33 Troponin I High Sens 8.0 pg/mL (0.0-20.0) 12/07/23 12:33 B-Natriuretic Peptide 118.0 pg/mL (5-100) H 12/07/23 12:33 Total Protein 6.1 gm/dL (6.4-8.9) L 12/07/23 12:33 Albumin 3.9 gm/dL (3.5-5.7) 12/07/23 12:33 Globulin 2.2 gm/dL 12/07/23 12:33 Albumin/Globulin Ratio 1.8 12/07/23 12:33 Assessment & Plan Assessment/Plan (1) Orthostatic hypotension dysautonomic syndrome: (2) Multiple falls: (3) A-fib: (4) Orthostatic hypotension: (5) Hyperlipidemia: (6) Diabetes mellitus: (7) ARLET (obstructive sleep apnea): (8) Peripheral arterial disease: (9) BMI 38.0-38.9,adult: Plan Assessment: Recurrent orthostatic hypotension in a patient with known dysautonomia. Multiple falls at home with collapse. Persistent orthostatic hypotension despite IV fluids in emergency room. Paroxysmal atrial fibrillation, status post cardioversion 7 days ago. Diabetes mellitus type 2. Obstructive sleep apnea?noncompliant with sleep apnea machine. Prefer arterial disease. Hyperlipidemia. Apparent history of BPH as he is on Flomax. BMI of 38.6. Plan: Placement in the hospital and observation status. Provide 1 more liter of IV fluids now. Provide the ProAmatine now. He missed a dose at lunchtime today. Consult to cardiology with [facility]. Check orthostatic vital signs 4 times a day and as needed. If he persists with additional hypotension I would consider giving him 50 g of albumin. For now we should do the following: Hold Flomax. Hold amiodarone. Hold the Lasix he normally takes at home in the morning. I will reduce his TOPROL dose from 50 mg daily to 25 mg daily and monitor for any rebound tachycardia. IP vs OBS Justification Based on differential dx, clinical care plan, and risk of adverse events, if untreated, in my clinical judgement this patient requires an acute care setting as: OBSERVATION because of an expectation of an under 2 midnight stay. Estimated length of stay (# of days): 2 Documented By: Ryley Higgins DO [id number] Signed By: <Electronically signed by Ryley Higgins DO> 12/07/23 1742 [facility] Work Phone: 1([phone] 381-901903-20-2024 History and physical note Author Ryley Higgins [facility] December 07, 2023 5:42pm Note Date/Time December 07, 2023 5:4 1pm [facility] [address] [place] [address] Hospitalist H&P Signed Patient: Harriett Thakkar MR#: [id number] : 1965 Acct:[id number] Age/Sex: 58 / M Adm Date: 4 Loc: Room: [address] [place] [address] Type: ADM INOo Attending Dr: Ryley Higgins DO Copies to: DO Toby Green MD~ HPI DATE OF EXAMINATION: 12/07/23 CHIEF COMPLAINT: Multiple falls with low blood pressure for 3 days. HISTORY OF PRESENT ILLNESS: This is a 1-year-old man who came to the emergency room after having multiple falls, especially yesterday and today. In the emergency room his blood pressurewas only 78/43. He had taken both his usual dose of midodrine this morning as well as his usual dose of Toprol this morning. In the emergency room he was given 1 L of IV fluids but when they set the patient up his systolic blood pressure dropped only 77 and so it was decided that he should be put in hospitalovernight. The patient explains that he had a cardioversion exactly 7 days ago by his final installer inspector. He has been seeing both Dr. Em and Dr. Griggs. He has been hopeful that he has been in normal sinus rhythm after the cardioversion last Tuesday. He has a complicated history with atrial fibrillation and flutter that becomes rapidly ventricular responsive. He had an ablation in August but after that had hospital presentations with recurrent rapid ventricular response. Back on October 29 a decision was made to increase his amiodarone and Toprol dose. The patient reports that he was in his usual state of health last week until the when he could feel that he was getting lightheaded and also some shortness of breath. He began having the sensation that he was lightheaded withany upright physical activity. He had family member stay at the house to watch him. Yesterday he had 2 major falls. One of them was while ambulating slowly. The second 1 was while he was in the bathroom (likely in the middle or the end of micturition) and he had a fall from standing level. While doing the intake with the admissions nurse the patient was questioned about sleep apnea. He explains that he breathes through his mouth so he could not find a mask that would be useful for him. Therefore he has not been using his sleep apnea machine for a long time. He did comment that he understands thelink between obstructive sleep apnea and his atrial fibrillation. Today while I am checking him in his blood pressure while he is lying flat in bed is actually fairly good. The nurse got 108/62. I got 132/65. But then I had him sit upright on the edge of the bed and his blood pressure dropped to 82/62 and he looks symptomatic of the hypotension. I had him stand up briefly but he was uncomfortable so we had to sit him back down and his blood pressure seated back on the edge of the bed again was 79/57. Review of Systems Review of Systems Review of systems: 10 systems are reviewed and are negative except as mentioned elsewhere in the documentation. [facility] Medical History (Updated 12/07/23 @ 17:38 by Ryley Higgins DO) BMI 38.0-38.9,adult Peripheral arterial disease ARLET (obstructive sleep apnea) non-compliant with sleep apnea mask. Orthostatic hypotension CAD (coronary artery disease) Amputated toe of [...] Status: Never smoker Substance Use Type: None Meds Medications and Allergies Allergies penicillamine Allergy (Unknown, Verified 12/07/23 11:54) unknown Sulfa (Sulfonamide Antibiotics) Allergy (Unknown, Verified 12/07/23 11:54) Unknown Reaction PAULETTE Inhibitors Allergy (Verified 12/07/23 11:54) Cough Penicillins Allergy (Verified 12/07/23 11:54) Unknown Reaction Home Medications insulin aspart U-100 100 unit/mL subcutaneous solution See Rx Instructions .Route .COMPLEX diabetes 08/04/17 [History Confirmed 12/07/23] metformin 850 mg tablet 850 mg PO BID diabetes 08/04/17 [History Confirmed 12/07/23] atorvastatin 80 mg tablet 80 mg PO QPM 30 days #30 tabs 11/09/19 [Rx Confirmed 12/07/23] nitroglycerin 0.4 mg sublingual tablet (Nitrostat) 0.4 mg sublingual Q5-15M PRN Angina 30 days #25 tabs 11/12/19 [Rx Confirmed 12/07/23] clopidogrel 75 mg tablet 75 mg PO DAILY 07/04/20 [History Confirmed 12/07/23] furosemide 20 mg tablet 40 mg PO DAILY 07/04/20 [History Confirmed 12/07/23] insulin glargine-yfgn 100 unit/mL subcutaneous solution (Semglee (insulin glargine-yfgn)) 50 unit subcut DAILY 03/01/22 [History Confirmed 12/07/23] midodrine 2.5 mg tablet 10 mg PO TID 03/01/22 [History Confirmed 12/07/23] potassium chloride 10 mEq capsule,extended release 20 meq PO DAILY 03/01/22 [History Confirmed 12/07/23] semaglutide 1 mg/dose (4 mg/3 mL) subcutaneous pen injector (Ozempic) 2 mg subcut QWEEK 03/01/22 [History Confirmed 12/07/23] insulin aspart U-100 100 unit/mL (3 mL) subcutaneous pen See Protocol subcut AC 04/04/23 [History Confirmed 12/07/23] apixaban 5 mg tablet (Eliquis) 5 mg PO Q12H 30 days #60 tabs 10/20/23 [Rx Confirmed 12/07/23] tamsulosin 0.4 mg capsule (Flomax) 0.4 mg PO DAILY 10/28/23 [History Confirmed 12/07/23] magnesium oxide 400 mg (241.3 mg magnesium) tablet 400 mg PO DAILY #30 tabs 10/30/23 [Rx Confirmed 12/07/23] metoprolol succinate 25 mg tablet,extended release 24 hr 50 mg (2 x 25 mg) PO DAILY #30 tabs 10/30/23 [Rx Confirmed 12/07/23] amiodarone 200 mg tablet 200 mg PO BID 30 days #90 tabs 11/30/23 [Rx Confirmed 12/07/23] citalopram 20 mg tablet (Celexa) 20 mg PO DAILY 11/30/23 [History Confirmed 12/07/23] trazodone 50 mg tablet 50 mg PO QHS 11/30/23 [History Confirmed 12/07/23] levofloxacin 500 mg tablet 500 mg PO DAILY 12/07/23 [History Confirmed 12/07/23] linezolid 600 mg tablet 600 mg PO BID 12/07/23 [History Confirmed 12/07/23] omeprazole 40 mg capsule,delayed release 40 mg PO DAILY 12/07/23 [History Confirmed 12/07/23] Exam Physical Exam Vital Signs: Temp Pulse Resp BP Pulse Ox O2 Del Method 98.3 F 75 20 108/73 95 Room Air 12/07/23 16:53 12/07/23 16:53 12/07/23 16:53 12/07/23 16:53 12/07/23 16:53 12/07/23 16:53 Narrative: GEN: BMI is 38.6. Does look visibly uncomfortable with lightheadedness just sitting upright in bed. Head: Normal Cephalic, Atraumatic. Eyes: Conjunctiva and sclera clear bilaterally. Nose: External nose and nares normal bilaterally. Mouth: Lips and tongue normal. Neck: No JVD. No thyromegaly. No lymphadenopathy. Lungs: Clear to auscultation bilaterally, no wheezing, no crackles. Heart: Regular rate and rhythm, no murmurs, rubs, or gallops. Abdomen: Soft, normal bowel sounds, no rigidity, guarding, or acute peritoneal signs. Extremities: No swelling or cords in the calves bilaterally, does have 2+ chronic looking edema in the ankles bilaterally. Skin: No systemic rashes or lesions. Veins are flat, despite IV fluids and theemergency room. Psychiatric: Calm. Conversant. Cooperative. Neuro: Awake, Alert, and Oriented x 3. No focal or lateralizing deficits. Results - Hospitalist H&P Lab Results Labs: Laboratory Last Values Corrected WBC 6.3 X10E3/uL (4.1-10.5) 12/07/23 12:33 Uncorrected WBC Count 6.3 x10E3/uL (4.1-10.5) 12/07/23 12:33 RBC 4.28 X10E6/uL (3.90-5.60) 12/07/23 12:33 Hgb 13.9 g/dL (13.0-17.0) 12/07/23 12:33 Hct 40.3 % (38.8-50.0) 12/07/23 12:33 MCV 94.3 fl (83.5-101) 12/07/23 12:33 MCH 32.5 pg (27.5-35.2) 12/07/23 12: MCHC 34.4 g/dL (32.5-35.6) 12/07/23 12:33 RDW 16.8 % (12.0-14.8) H 12/07/23 12:33 Plt Count 196 x10E3/uL (150-450) 12/07/23 12:33 MPV 8.2 fl (6.6-10.1) 12/07/23 12:33 Neut % (Auto) 82.9 % (.) 12/07/23 12:33 Lymph % (Auto) 9.2 % (.) 12/07/23 12:33 Brantley % (Auto) 6.6 % (.) 12/07/23 12:33 Eos % (Auto) 0.7 % (.) 12/07/23 12:33 Baso % (Auto) 0.6 % (.) 12/07/23 12:33 Nucleat RBC Rel Count 0.0 /100 WBC (0-0.5) 12/07/23 12:33 Neut # (Auto) 5.2 x10E3/uL (1.8-7.7) 12/07/23 12:33 Lymph # (Auto) 0.6 x10E3/uL (1.00-4.8) L 12/07/23 12:33 Brantley # (Auto) 0.4 x10E3/uL (0.0-0.8) 12/07/23 12:33 Eos # (Auto) 0.0 x10E3/uL (0.0-0.45) 12/07/23 12:33 Baso # (Auto) 0.0 x10E3/uL (0.0-0.2) 12/07/23 12:33 Monocyte Dist Width 18.44 % (0.00-20.00) 12/07/23 12:33 PT 19.8 Seconds (9.0-12.9) H 12/07/23 12:33 INR 1.8 12/07/23 12:33 APTT 33.6 Seconds (25.1-36.5) 12/07/23 12:33 PHA Creatinine Clear 93.69 12/07/23 12:33 Sodium 137 mmol/L (136-145) 12/07/23 12:33 Potassium 4.3 mmol/L (3.5-5.1) 12/07/23 12:33 Chloride 100 mmol/L (98-107) 12/07/23 12:33 Carbon Dioxide 27.4 mmol/L (21.0-31.0) 12/07/23 12:33 Anion Gap 13.9 mEq/L (6.0-15.0) 12/07/23 12:33 BUN 20 mg/dL (7-25) 12/07/23 12:33 Creatinine 1.23 mg/dL (0.70-1.30) 12/07/23 12:33 Est GFR (CKD-EPI) > 60.0 mL/Min 12/07/23 12:33 Glucose 107 mg/dL (70-100) H 12/07/23 12:33 Calcium 9.4 mg/dL (8.6-10.3) 12/07/23 12:33 Total Bilirubin 1.1 mg/dl (0.3-1.0) H 12/07/23 12:33 Direct Bilirubin 0.30 mg/dL (0.03-0.18) H 12/07/23 12:33 Indirect Bilirubin 0.8 mg/dL 12/07/23 12:33 AST 17 U/L (13-39) 12/07/23 12:33 ALT 18 U/L (7-52) 12/07/23 12:33 Alkaline Phosphatase 63 U/L (34-104) 12/07/23 12:33 Total Creatine Kinase 33 U/L (30-223) 12/07/23 12:33 Troponin I High Sens 8.0 pg/mL (0.0-20.0) 12/07/23 12:33 B-Natriuretic Peptide 118.0 pg/mL (5-100) H 12/07/23 12:33 Total Protein 6.1 gm/dL (6.4-8.9) L 12/07/23 12:33 Albumin 3.9 gm/dL (3.5-5.7) 12/07/23 12:33 Globulin 2.2 gm/dL 12/07/23 12:33 Albumin/Globulin Ratio 1.8 12/07/23 12:33 Assessment & Plan Assessment/Plan (1) Orthostatic hypotension dysautonomic syndrome: (2) Multiple falls: (3) A-fib: (4) Orthostatic hypotension: (5) Hyperlipidemia: (6) Diabetes mellitus: (7) ARLET (obstructive sleep apnea): (8) Peripheral arterial disease: (9) BMI 38.0-38.9,adult: Plan Assessment: Recurrent orthostatic hypotension in a patient with known dysautonomia. Multiple falls at home with collapse. Persistent orthostatic hypotension despite IV fluids in emergency room. Paroxysmal atrial fibrillation, status post cardioversion 7 days ago. Diabetes mellitus type 2. Obstructive sleep apnea?noncompliant with sleep apnea machine. Prefer arterial disease. Hyperlipidemia. Apparent history of BPH as he is on Flomax. BMI of 38.6. Plan: Placement in the hospital and observation status. Provide 1 more liter of IV fluids now. Provide the ProAmatine now. He missed a dose at lunchtime today. Consult to cardiology with [facility]. Check orthostatic vital signs 4 times a day and as needed. If he persists with additional hypotension I would consider giving him 50 g of albumin. For now we should do the following: Hold Flomax. Hold amiodarone. Hold the Lasix he normally takes at home in the morning. I will reduce his TOPROL dose from 50 mg daily to 25 mg daily and monitor for any rebound tachycardia. IP vs OBS Justification Based on differential dx, clinical care plan, and risk of adverse events, if untreated, in my clinical judgement this patient requires an acute care setting as: OBSERVATION because of an expectation of an under 2 midnight stay. Estimated length of stay (# of days): 2 Documented By: Ryley Higgins DO [id number] Signed By: <Electronically signed by Ryley Higgins, > 12/07/23 1742 [facility] Work Phone: 1(220) 873-395302-22-2024 History of Present illness Narrative* Monica Curran LPN - 11/10/2023 1:00 PM EST Patient here for at EKG visit [...] is safe to fly to go watch Signal Patterns. To Dr. Em for review. Vitals: 11/10/23 1354 BP: 102/76 BP Location: Right arm Patient Position: Sitting Pulse: 71 Weight: 137 kg (303 lb) Height: 1.88 m (6' 2 ) documented in this [facility] Work Phone: 1(726) 919-352102-11-2024 Discharge summary Author Daniela Gore [facility] October 30, 2023 6:23pm Note Date/Time October 30, 2023 2:28pm [facility] [address] [place] [address] Discharge Summary Signed Patient: Harriett Thakkar MR#: [id number] : 1965 Acct:[id number] Age/Sex: 58 / M Adm Date: 4 Loc: Room: [address] [place] [address]: Daniela Gore MD Copies to: [...] <Electronically signed by Daniela Gore MD> 10/30/23 3423 [facility] Work Phone: 1(245) 262-406502-11-2024 Progress note Author Dallas Em [facility] October 30, 2023 10:19am Note Date/Time October 30, 2023 10:19am [facility] [address] [place] [address] Cardiology Progress Note Signed Patient: Harriett Thakkar MR#: [id number] : 1965 Acct:[id number] Age/Sex: 58 / M Adm Date: 4 Loc: 3T Room: [address] [place] [address] Type: ADM INOo Attending Dr: Daniela Gore [...] signed by MD Dallas Em> 10/30/23 1019 [facility] Work Phone: 1(846) 567-342102-11-2024 Progress note Author Dallas Em [facility] October 30, 2023 10:19am Note Date/Time October 30, 2023 10:19am [facility] [address] [place], [place] [id number] Cardiology Progress Note Signed Patient: Harriett Thakkar MR#: [id number] : 1965 Acct:[id number] Age/Sex: 58 / M Adm Date: 4 Loc: Room: [address] [place] [address] Type: ADM INOo Attending Dr: Daniela Gore [...] <Electronically signed by MD Dallas Em> 10/30/23 [facility] Work Phone: 1(149) 503-147302-10-2024 Progress note Author Daniela Gore [facility] October 29, 2023 6:42pm Note Date/Time October 29, 2023 2:45pm [facility] [address] [place] [address] Hospitalist Progress Note Signed Patient: Harriett Thakkar MR#: [id number] : 1965 Acct:[id number] Age/Sex: 58 / M Adm Date: 4 Loc: Room: [address] [place] [address] Type: ADM INOo Attending Dr: Daniela Gore [...] Insuln.Pen SUBCUT 10/27/24 21:59 2 units TID.[facility] Administration Protocol Insulin Glargine 50 units 10/29/23 09:00 10/29/23 09:59 Insulin Glargine 300 Units/3 Ml Insuln.Pen SUBCUT 10/28/24 08:59 50 units DAILY RADHA Administration Metoprolol Succinate 50 mg 10/30/23 09:00 Metoprolol Succinate 50 Mg Tab.Er.24h PO 10/29/24 08:59 DAILY RADAH Midodrine 10 mg 10/28/23 22:00 10/29/23 09:44 [...] Plan Documented By: Daniela Gore MD 10/29/23 144 Signed By: <Electronically signed by Daniela Gore MD> 10/29/23 184 [facility] Work Phone: 1(992) 145-225802-10-2024 Progress note Author Daniela Gore [facility] October 29, 2023 6:42pm Note Date/Time October 29, 2023 2:45pm [facility] [address] [place] [address] Hospitalist Progress Note Signed Patient: Harriett Thakkar MR#: [id number] : 1965 Acct:[id number] Age/Sex: 58 / M Adm Date: 4 Loc: Room: [address] [place] [address] Type: ADM INOo Attending Dr: Daniela Gore [...] Insuln.Pen SUBCUT 10/27/24 21:59 2 units TID.[facility] Administration Protocol Insulin Glargine 50 units 10/29/23 [...] <Electronically signed by Daniela Gore MD> 10/29/23 184 [facility] Work Phone: [phone] 126-663302-10-2024 Consult note Author Dallas Em [facility] October 29, 2023 2:19pm Note Date/Time October 29, 2023 2:14pm [facility] [address] [place] [address] Cardiology Consult Note Signed Patient: Harriett Thakkar MR#: [id number] : 1965 Acct:[id number] Age/Sex: 58 / M Adm Date: 4 Loc: Room: [address] [place] [address] Type: ADM INOo Attending Dr: Daniela Gore [...] system completely unremarkable except for mentioned above [facility] Medical History (Updated 10/28/23 @ 15:48 [...] 10 MG/HR 10 mls/hr IV .Q10H RADHA Rx#:[id number] Oral 400 / 400 Other: # Unmeasured [...] agreed Documented By: Dallas Em MD 10/29/23 1414 Signed By: <Electronically signed by MD Dallas Em> 10/29/23 1419 [facility] Work Phone: [phone] History and physical note Author Daniela Gore [facility] October 29, 2023 1:01am Note Date/Time October 28, 2023 6 :49pm [facility] [address] [place] [address] Hospitalist H&P Signed Patient: Harriett Thakkar MR#: [id number] : 1965 Acct:[id number] Age/Sex: 58 / M Adm Date: 4 Loc: Room: [address] [place] [address] Type: ADM IN Attending Dr: Daniela Gore [...] care Discussed with:?the medical team, the patient [facility] Medical History (Updated 10/28/23 @ 15:48 [...] % (Auto) 14.1 % (.) 10/28/23 11:29 Brantley % (Auto) 7.2 % (.) 10/28/23 11:29 Eos % (Auto) 1.7 % (.) 10/28/23 11:29 Baso % (Auto) 0.5 % (.) 10/28/23 11:29 Nucleat RBC Rel Count 0.0 /100 WBC (0-0.5) 10/28/23 11:29 Neut # (Auto) 5.0 x10E3/uL (1.8-7.7) 10/28/23 11:29 Lymph # (Auto) 0.9 x10E3/uL (1.00-4.8) L 10/28/23 11:29 Brantley # (Auto) 0.5 x10E3/uL (0.0-0.8) 10/28/23 11:29 [...] 10/28/23 11:29 Potassium 3.8 mmol/L (3.5-5.1) 10/28/23 11:29 Chloride 102 mmol/L (98-107) 10/28/23 11:29 Carbon [...] 1 Documented By: Daniela Gore MD 10/28/23 5091 Signed By: <Electronically signed by Daniela Gore MD> 10/29/23 0101 [facility] Work Phone: 1([phone]) 315-794702-10-2024 History and physical note Author Daniela Gore [facility] October 29, 2023 1:01am Note Date/Time October 28, 2023 6 :49pm [facility] [address] [place] [address] Hospitalist H&P Signed Patient: Harriett Thakkar MR#: [id number] : 1965 Acct:[id number] Age/Sex: 58 / M Adm Date: 4 Loc: Room: [address] [place] [address] Type: ADM IN Attending Dr: Daniela Gore [...] care Discussed with:?the medical team, the patient [facility] Medical History (Updated 10/28/23 @ 15:48 [...] % (Auto) 14.1 % (.) 10/28/23 11:29 Brantley % (Auto) 7.2 % (.) 10/28/23 11:29 Eos % (Auto) 1.7 % (.) 10/28/23 11:29 Baso % (Auto) 0.5 % (.) 10/28/23 11:29 Nucleat RBC Rel Count 0.0 /100 WBC (0-0.5) 10/28/23 11:29 Neut # (Auto) 5.0 x10E3/uL (1.8-7.7) 10/28/23 11:29 Lymph # (Auto) 0.9 x10E3/uL (1.00-4.8) L 10/28/23 11:29 Brantley # (Auto) 0.5 x10E3/uL (0.0-0.8) 10/28/23 11: Eos # (Auto) 0.1 x10E3/uL (0.0-0.45) 10/28/23 11: Baso # (Auto) 0.0 x10E3/uL (0.0-0.2) 10/28/23 [...] signed by Daniela Gore MD> 10/29/23 0101 [facility] Work Phone: 1([phone]) 636-864102-09-2024 History of Present illness Narrative* Monica Curran [...] discharge. Patient stated he was going to [facility] to be evaluated. To Dr. Griggs for review. Vitals: 10/28/23 1037 10/28/23 1038 BP: 70/52 (!) 62/40 BP Location: Right arm Right arm Patient Position: Lying Lying Pulse: (!) 121 Weight: 136 kg (299 lb) Height: 1.88 m (6' 2 ) documented in this [facility] Work Phone: 1(265) 294-749102-01-2024 [facility] History of Present illness Narrative* Angel Griggs MD - 10/18/2023 9:30 AM EST Subjective Harriett Thakkar is a 58 y.o. male Chief Complaint Follow-up HPI Patient is in the office with her daughter for follow-up for the problems noted below. Last month he underwent ablation by Dr. Villeda in [place]. He is on amiodarone and Eliquis and [...] this can lead to atrial fibrillation episodes. [id number] coronary artery disease status post angioplasty of [...] In Cardiology 4. Coronary artery disease involving iqugmiut coronary artery of iqugmiut heart without angina pectorisFollow Up In Cardiology [...] Attestation By signing my name below, I, [email or web address] , Scribe attest that this documentation has been prepared under the direction and in the presence of Angel Griggs MD. documented in this [facility] Work Phone: 1([phone]) 942-731301-30-2024 Instructions* Patient Instructions* Zakiya Mccray LPN - [...] of your visit. Cardioversion this week Same meds Dr. Villeda as scheduled. Follow up 6 months [facility] Work Phone: [phone]) 970-526912-13-2023 Plan of care note* Care Plan - [...] for the shift include rest and comfort [facility]12-13-2023 Miscellaneous Notes* Care Plan - Yonathan [...] the hospital Outcome: Progressing documented in this [facility] Work Phone: 1([phone]) [phone] History of Present illness Narrative* Nathan Au [...] cardiac ablation for A-fib. [facility] Work Phone: [phone] Plan of care note* Care Plan - [...] for fall in the hospital Outcome: Progressing [facility] Work Phone: [phone]) 257-886312-11-2023 Nurse Note* Alisha Cid RN - 08/29/2023 7:41 PM EST Report called to 8th floor RN, edwin sites stable. IV patent and patient has all belongings. [facility]12-11-2023 Nurse Note* Alisha Cid RN - 08/29/2023 7:41 PM EST Report called to 8th floor RN, groin sites stable. IV patent and patient has all belongings. documented in this [facility] Work Phone: 1(227) 441-280912-11-2023 History and physical note* Fatimah Romo APRN-ALIREZA - 08/29/2023 7:20 AM EST History and Physical Pre Surgical Review (> 30 days) Subjective Patient is a 58 y.o. male who presents to [facility] on with atrialfibrillation for an [...] His palpitations have improved. The patients regular final installer inspector referred the patient to EP for AF [...] Dual Implant; Surgeon: Lior Villeda MD; Location: [facility] Cardiac Putty Maker; Service: Electrophysiology; Laterality: N/A; CORONARY STENT PLACEMENT [...] today confirming AF. RICHARD Chacon [facility] Work Phone: 1([phone]) 483-764712-11-2023 History and physical note* RICHARD Chacon - 08/29/2023 7:20 AM EST History and Physical Pre Surgical Review (> 30 days) Subjective Patient is a 58 y.o. male who presents to [facility] on with atrialfibrillation for an [...] His palpitations have improved. The patients regular final installer inspector referred the patient to EP for AF [...] Dual Implant; Surgeon: Lior Villeda MD; Location: [facility] Cardiac Putty Maker; Service: Electrophysiology; Laterality: N/A; CORONARY STENT PLACEMENT [...] confirming AF. RICHARD Chacon documented in this [facility] Work Phone: [phone] 411-647211-15-2023 Evaluation note* Encounter Date Diagnosis Assessment Notes [...] check closer to his procedure. Seen by Bernie KaurD Candidate/Jama Lopez PharmD [employer] Other 10-24-2023 History of Present illness Narrative* [...] this can lead to atrial fibrillation episodes. [id number] coronary artery disease status post angioplasty of [...] 5 mg tablet, Take as directed by [facility] cou[facility], Disp: , Rfl: metoprolol succinate XL (Toprol-XL) 25 mg 24 hr tablet, Take 1 tablet (25 mg) by mouth once daily. Do not crush or chew., Disp: 30 tablet, Rfl: 1 Assessment/Plan 1. Paroxysmal atrial fibrillation (CMS/HCC) ECG 12 Lead Follow Up In Cardiology metoprolol succinate XL (Toprol-XL) 25 mg 24 hr tablet 2. Coronary artery disease involving iqugmiut coronary artery of iqugmiut heart without angina pectorisFollow Up In Cardiology 3. History of PTCA 4. History of PR (myocardial infarction) 5. Ischemic cardiomyopathy metoprolol succinate XL (Toprol-XL) 25 mg 24 hr tablet 6. Ventricular tachycardia, nonsustained (CMS/HCC) 7. S/P implantation of automatic cardioverter/defibrillator (AICD) 8. Essential hypertension 9. Hyperlipidemia, unspecified hyperlipidemia type 10. Orthostatic hypotension documented in this [facility] Work Phone: 1([phone]) 426-964810-24-2023 Instructions* Patient Instructions* Zakiya Mccray LPN - [...] with Dr.Jain Scottie sands. documented in this [facility]Mer[facility] Work Phone: 1([phone]) 529-667310-18-2023 Evaluation note* Encounter Date Diagnosis Assessment Notes [...] his next appt. Seen by Farnaz Collazo [facility] [employer] Other 10-12-2023 History of Present illness Narrative* [...] verified with patient. PCP: Dr. Amador Pharmacy: [facility] Insurance: [facility] Patient is diabetic, checks blood sugar 3-4 times a day at home, has working glucometer/supplies. Patient has declined any home going needs and plans to return home today. documented in this [facility] Work Phone: [phone] 401-885610-12-2023 Hospital Discharge instructions* Discharge Instructions* RICHARD Felix [...] Metformin 07/01/23. - Please follow up with [facility] as scheduled. [facility] Work Phone: [phone] 290-604510-12-2023 Plan of care note* Care Plan - [...] Recommendations to address these barriers include education. [facility]10-12-2023 Miscellaneous Notes* Care Plan - Ina [...] these barriers include education. documented in this [facility]Mer[facility] Work Phone: [phone]) 342-630010-11-2023 Nurse Note* Minoo Hernandez RN - 06/29/2023 6:55 PM EDT Patient arrived on unit from track laborer. Patient is A&Ox3 on room air, lungs [...] in reach bed i n lowest position. [facility] Work Phone: [phone]) [phone] Nurse Note* Minoo Hernandez RN - 06/29/2023 6:55 PM EDT Patient arrived on unit from track laborer. Patient is A&Ox3 on room air, lungs [...] stable. Pt transferred to 8th floor by track laborer RN. * Geneva Oquendo RN - 06/29/2023 2:15 PM EDT 1415: Blood glucose result 140 documented in [address] [facility]Mer[facility] Work Phone: [phone] Nurse Note* Leandra Lei RN - 06/29/2023 5:45 PM EDT Nursing report called to RN on 8th floor Minoo, final left chest site assessment and vital signs stable. Pt transferred to 8th floor by track laborer RN. [facility]10-11-[facility] Nurse Note* Geneva Oquendo RN - 06/29/2023 2:15 PM EDT 1415: Blood glucose result [address] [facility] Work Phone: [phone] History and physical note* Lorene Vernon APRN-ALIREZA - 06/29/2023 1:56 PM EDT History and Physical Pre Surgical Review (> 30 days) Subjective This is a 58 y.o. male with a PMH significant for HTN, HLD, DM, PE, CAD, ARLET, atrial fibrillation and ischemic cardiomyopathy. The patient has a history of ischemic cardiomyopathy with an EF less than 40% and documented NSVT and unexplained syncope. The presents to [facility] today, 06/29/2023 for ICD insertion [...] 5 mg tablet Take as directed by [facility] coumadin clinic Physical Exam Physical Exam Constitutional: [...] contract COVID-19 what the risks are. Lorene Vernon, TITO-FURNITURE PAINTER [facility] Work Phone: [phone] History and physical note* Lorene Vernon, CAREER DEVELOPMENT FACILITATOR-FURNITURE PAINTER - 06/29/2023 1:56 PM EDT History and Physical Pre Surgical Review (> 30 days) Subjective This is a 58 y.o. male with a PMH significant for HTN, HLD, DM, PE, CAD, ARLET, atrial fibrillation and ischemic cardiomyopathy. The patient has a history of ischemic cardiomyopathy with an EF less than 40% and documented NSVT and unexplained syncope. The presents to [facility] today, 06/29/2023 for ICD insertion [...] 5 mg tablet Take as directed by [facility] coumadin clinic Physical Exam Physical Exam Constitutional: [...] COVID-19 what the risks are. Lorene Vernon APRN-FURNITURE PAINTER documented in this encounterMer[facility] Work Phone: [phone] Evaluation note* Encounter Date Diagnosis Assessment Notes [...] of normal. Seen by Jama Lopez PharmD [employer] Other 09-18-2023 Evaluation note* Encounter Date Diagnosis [...] reach surgeon's office, Dr. Villeda at in [place] to clarify. Seen by Jama Lopez PharmD [employer] Other 09-06-2023 Evaluation note* Encounter Date Diagnosis [...] is on hold. Patient instructed to notify [facility] if they begin having fluid overload/swelling and is instructed to resume furosemide. Patient reports they will be having a defibrillation procedure, tentatively on 06/13, requiring a 5 day hold of warfarin and clopidogrel at in [place] with Dr. Villeda. Patient states they need confirmation from the surgeon of this and will call [facility]. Seen by Sanjuana Armstrong, BernieD/Jaam Lopez PharmD [employer] Other 08-24-2023 Evaluation note* Encounter Date Diagnosis [...] abnormal bruising or bleeding. Seen by Letty Shaw [facility] [employer] Other 08-14-2023 Evaluation note* Encounter Date Diagnosis [...] Seen by Teddy Lea, PharmD Candidate/Letty Shaw [facility] [employer] Other 07-31-2023 Evaluation note* Encounter Date Diagnosis [...] Seen by Bernie RodriguezD Candidate/Jama Lopez PharmD [employer] Other 07-17-2023 Progress note Author Derrek Tay [facility] April 04, 2023 11:33am Note Date/Time April 04, 2023 11:1 5am [facility] [address] [place] [address] Hospitalist Progress Note Signed Patient: Harriett Thakkar MR#: [id number] : 1965 Acct:[id number] Age/Sex: 58 / M Adm Date: 3 Loc: Room: 1M7794-6 Type: ADM INOo Attending Dr: Derrek Tay [...] Signed By: <Electronically signed by Derrek Tay, > 04/04/23 113[address] [facility] Work Phone: [phone]) 261-523807-16-2023 Progress note Author Toy Yeager [facility] April 03, 2023 1:05pm Note Date/Time April 03, 2023 1:06 pm [facility] [address] [place] [address] Hospitalist Progress Note Signed Patient: Harriett Thakkar MR#: [id number] : 1965 Acct:[id number] Age/Sex: 58 / M Adm Date: 3 Loc: Room: [address] [place] [address] Type: ADM INOo Attending Dr: Toy Yeager [...] arms. Patient was shopping last night at [employer] and started feeling above symptoms which are [...] minutes. Documented By: Toy Yeager MD 04/03/23 1301 Signed By: <Electronically signed by Toy Yeager MD> 04/03/23 9758 [facility] Work Phone: [phone]) [phone] Consult note Author Dallas Em [facility] April 03, 2023 12:31pm Note Date/Time April 03, 2023 12:2 1pm [facility] [address] [place] [address] Cardiology Consult Note Signed Patient: Harriett Thakkar MR#: [id number] : 1965 Acct:[id number] Age/Sex: 58 / M Adm Date: 3 Loc: Room: [address] [place] [address] Type: ADM INOo Attending Dr: Toy Yeager [...] shoulder pressure while he was shopping at [employer]. He rested with improvement of his symptoms. [...] and no additional complaints, except as [facility]: Unable to Obtain Vaccinated for COVID-19?: [...] x10E3/uL Lymph # (Auto) 1.6 (1.00-4.8) x10E3/uL Brantley # (Auto) 0.7 (0.0-0.8) x10E3/uL Eos # [...] signed by MD Dallas Em> 04/03/23 1231 [facility] Work Phone: [phone]) 411-183807-15-2023 History and physical note Author Toy Yeager [facility] April 02, 2023 5:21pm Note Date/Time April 02, 2023 5:16 pm [facility] [address] [place] [address] Hospitalist H&P Signed Patient: Harriett Thakkar MR#: [id number] : 1965 Acct:[id number] Age/Sex: 58 / M Adm Date: 3 Loc: Room: [address] [place] [address] Type: ADM INOo Attending Dr: Toy Yeager [...] bilateralarms. Patient was shopping last night at [employer] and started feeling above symptoms which are [...] % (Auto) 18.7 % (.) 04/02/23 09:56 Brantley % (Auto) 9.6 % (.) 04/02/23 09:56 Eos % (Auto) 3.0 % (.) 04/02/23 09:56 Baso % (Auto) 1.0 % (.) 04/02/23 09:56 Nucleat RBC Rel Count 0.2 /100 WBC (0-0.5) 04/02/23 09:56 Neut # (Auto) 5.3 x10E3/uL (1.8-7.7) 04/02/23 09:56 Lymph # (Auto) 1.5 x10E3/uL (1.00-4.8) 04/02/23 09:56 Brantley # (Auto) 0.8 x10E3/uL (0.0-0.8) 04/02/23 09:56 [...] signed by Toy Yeager MD> 04/02/23 [address] [facility] Work Phone: 1([phone] Evaluation note* Encounter Date Diagnosis Assessment Notes Treatment Notes Treatment Clinical Notes Feb, Medication monitoring encounter (ICD-10 - Z51.81) Referring Provider: Angel Griggs Diagnosis: Atrial Fibrillation INR Goal: 2-3 INR: 2.7 Warfarin Tablet Size: 5mg Tuesday: 5mg Tuesday: 7.5mg Tuesday: 5mg Tuesday: 5mg : 5mg Tuesday: 5mg Tuesday: 5mg Total Weekly Dose: 37.5 mg Continue the plan above. Follow up in 4 weeks. Seen by Mala Downing, PharmD Candidate/Radha Lopez PharmD [place] [employer] Other 05-31-2023 Evaluation note* Encounter Date Diagnosis Assessment Notes Treatment Notes Treatment Clinical Notes January, Medication monitoring encounter (ICD-10 - Z51.81) Referring Provider: Angel Griggs Diagnosis: Atrial Fibrillation INR Goal: 2-3 INR: 2.1 Warfarin Tablet Size: 5mg Tuesday: 5mg Tuesday: 7.5mg Tuesday: 5mg Tuesday: 5mg : 5mg Tuesday: 5mg Tuesday: 5mg Total Weekly Dose: 37.5 mg Continue the plan above. Follow up in 4 weeks. Seen by Letty Shaw [facility] [employer] Other 05-09-2023 Evaluation note* Encounter Date Diagnosis Assessment Notes Treatment Notes Treatment Clinical Notes 09 May, 2023 Medication monitoring encounter (ICD-10 - Z51.81) Referring [...] in early January. Seen by Letty Shaw, [facility] [employer] Other 04-27-2023 Evaluation note* Encounter Date Diagnosis [...] the elevated INR. Patient reminded to call [facility] when a new medication is started so [...] in early January. Seen by Letty Shaw, [facility] [employer] Other 04-13-2023 Evaluation note* Encounter Date Diagnosis Assessment Notes Treatment Notes Treatment Clinical Notes Dec, Medication monitoring encounter (ICD-10 - Z51.81) Referring Provider: Angel Griggs Diagnosis: Atrial Fibrillation INR Goal: 2-3 INR: 2.5 Warfarin Tablet Size: 5mg Fabiano: 5mg Tuesday: [...] early January. Seen by Jama Lopez PharmD [employer] Other 04-06-2023 Evaluation note* Encounter Date Diagnosis [...] the skin lesion. Seen by Letty Shaw [facility] [employer] Other 03-29-2023 Evaluation note* Encounter Date Diagnosis [...] the above recommendations. Instructed patient to call [facility] if he has further issues after being evaluated at Urgent Care/Emergency Room. Seen by Jama Lopez PharmD [employer] Other 03-16-2023 Evaluation note* Encounter Date Diagnosis [...] chronic issue. Seen by Jama Lopez PharmD [employer] Other 02-13-2023 Evaluation note* Encounter Date Diagnosis [...] Jama Lopez PharmD, Jaylin Wright PharmD Candidate [employer] Other 01-16-2023 Evaluation note* Encounter Date Diagnosis [...] low INR. Seen by Ugo Connelly PharmD [employer] Other 11-07-2022 Evaluation note* Encounter Date Diagnosis [...] 5 weeks. Seen by Ugo Connelly PharmD [employer] Other 10-03-2022 Evaluation note* Encounter Date Diagnosis Assessment Notes Treatment Notes Treatment Clinical Notes Jun, Medication monitoring encounter (ICD-10 - Z51.81) Referring Provider: Angel Griggs Diagnosis: Atrial Fibrillation INR Goal: 2-3 INR: 1.9 Warfarin Tablet Size: 5mg Fabiano: 5mg Tuesday: 7.5mg Tuesday: 5mg Tuesday: 7.5mg : 5mg Tuesday: 7.5mg Tuesday: 5mg Total Weekly Dose: 42.5mg Boost additional 2.5mg today, Thursday 06/21 due to missing dose last night. Continue current plan. Follow up in 5 weeks. A prescription for warfarin is called into [facility] in [place]. Seen by Marta Hernandez RN [employer] Other 08-29-2022 Evaluation note* Encounter Date Diagnosis [...] with warfarin. Seen by Marta Hernandez RN [employer] Other 07-20-2022 Evaluation note* Encounter Date Diagnosis [...] 5 weeks. Seen by Marta Hernandez RN [employer] Other 06-22-2022 Evaluation note* Encounter Date Diagnosis [...] 4 weeks. Seen by Marta Hernandez RN [employer] Other 05-25-2022 Evaluation note* Encounter Date Diagnosis [...] INSTRUCTIONS: Please take as instructed above. Notify [place] for [facility] Care, Anticoagulation Clinic [phone] option 5 for the following: -Call immediately [...] person tells you to adjust your warfarin. [employer] Other 04-27-2022 Evaluation note* Encounter Date Diagnosis Assessment Notes Treatment Notes Treatment Clinical Notes Dec, Medication monitoring encounter (ICD-10 - Z51.81) Referring Provider: Angel Griggs Diagnosis: Atrial Fibrillation INR Goal: 2-3 INR: 3.0 Tablet Size: 5mg Fabiano: 5mg Elder: 7.5mg Sheron: 5mg Tuesday: 7.5mg : 5mg Tuesday: 7.5mg Tuesday: 5mg Total Weekly Dose: 42.5mg Continue current plan. Follow up in 4 weeks. A prescription for warfarin is called into [facility] in [place] and put on hold. Seen by Marta Hernandez RN [place] [employer] Other 03-30-2022 Evaluation note* Encounter Date Diagnosis [...] 4 weeks. Seen by Rhiannon James LPN [facility] [employer] Other 03-03-2022 Evaluation note* Encounter Date Diagnosis [...] Patient's 11/14/21. Seen by Marta Hernandez RN [employer] Other 02-01-2022 Evaluation note* Encounter Date Diagnosis [...] patient preference. Seen by Marta Hernandez RN [employer] Other 01-04-2022 Evaluation note* Encounter Date Diagnosis [...] patient preference. Seen by Ugo Connelly PharmD [employer] Other 12-06-2021 Evaluation note* Encounter Date Diagnosis Assessment Notes Treatment Notes Treatment Clinical Notes Aug, Medication monitoring encounter (ICD-10 - Z51.81) Referring Provider: Angel Griggs Diagnosis: Atrial Fibrillation INR Goal: 2-3 INR: 2.9 Tablet Size: 5mg Fabiano: 5mg Tuesday: 7.5mg Tuesday: 5mg Tuesday: 7.5mg : 5mg Tuesday: 7.5mg Tuesday: 5mg Total Weekly Dose: 42.5mg Continue current plan. Follow-up in 4 weeks per patient preference. Seen by Ugo Connelly PharmD [employer] Other 11-03-2021 Evaluation note* Encounter Date Diagnosis [...] for appointments. Seen by Ugo Connelly PharmD [employer] Other 10-27-2021 Evaluation note* Encounter Date Diagnosis [...] for appointments. Seen by Ugo Connelly PharmD [employer] Other 10-06-2021 Evaluation note* Encounter Date Diagnosis [...] for appointments. Seen by Ugo Connelly PharmD [employer] Other [facility] complaint Narrative - Marija THAKKAR is being seen for a consultation for atrial fibrillation and ICD eval. [facility] Work Phone: consult note Author Dallas Em [facility] April 03, 2023 12:31pm Note Date/Time April 03, 2023 12:2 1pm [facility] [address] [place] [address] Cardiology Consult Note Signed Patient: Harriett Thakkar MR#: [id number] : 1965 Acct:[id number] Age/Sex: 58 / M Adm Date: 3 Loc: Room: [address] [place] [address] Type: ADM INOo Attending Dr: Toy Yeager [...] shoulder pressure while he was shopping at [employer]. He rested with improvement of his symptoms. [...] and no additional complaints, except as documented [facility] Source: Unable to Obtain Vaccinated for COVID-19?: [...] x10E3/uL Lymph # (Auto) 1.6 (1.00-4.8) x10E3/uL Brantley # (Auto) 0.7 (0.0-0.8) x10E3/uL Eos # [...] signed by MD Dallas Em> 04/03/23 12[address] [facility] Work Phone: Consult note Author Dallas Em [facility] December 08, 2023 11:13am Note Date/Time December 08, 2023 11: 03am [facility] [address] [place] [address] Cardiology Consult Note Signed Patient: Harriett Thakkar MR#: [id number] : 1965 Acct:[id number] Age/Sex: 58 / M Adm Date: 4 Loc: Room: [address] [place] [address] Type: ADM INOo Attending Dr: Ryley Higgins DO Copies to: DO Toby Green MD Mourhaf A Traboulssi, MD~ Cardiology HPI History of Present Illness Consult Date: 12/08/23 Reason for Consult: Cardiac consultation requested for hypertension HPI: Mr. Thakkar is a 58 year old male well-known to me.male with known history of atrial fibrillation/flutter underwent ablation in August with a recurrence of his arrhythmia requiring repeat cardioversion about 7 days ago presented to the hospital back complaining of sudden onset palpitation, fatigue, weakness, and several fall. Patient following recent hospitalization his cardiac medication was adjusted. His amiodarone and metoprolol were increased to optimize heart rate control. Patient does not have history of coronary artery disease with remote PCI to the LAD, diabetes, diabetic autonomic insufficiency with recurrentorthostatic hypotension and history of ventricular arrhythmia status post AICD implant. Patient denies chest pain or shortness of breath. On presentation theemergency room he was noted to be hypotensive. He did response to IV fluid. Heis feeling better. Patient is known to have a history of diabetic autonomic insufficiency and chronic orthostatic hypotension which I believe have worsened by recent increase of his amiodarone and metoprolol. This was done to optimize heart rate control few weeks back. At the time my evaluation the patient is resting comfortably in bed but continued to have orthostatic hypotension Review of Systems Review of Systems Review of systems: Patient reported orthostatic dizziness and hypotension with episode of low bloodpressure. He had few falls [facility] Medical History (Updated 12/07/23 @ 17:38 by Ryley Higgins DO) BMI 38.0-38.9,adult Peripheral arterial disease ARLET (obstructive sleep apnea) non-compliant with sleep apnea mask. Orthostatic hypotension CAD (coronary artery disease) Amputated toe of [...] Status: Never smoker Substance Use Type: None Meds Medications and Allergies Allergies penicillamine Allergy (Unknown, Verified 12/07/23 11:54) unknown Sulfa (Sulfonamide Antibiotics) Allergy (Unknown, Verified 12/07/23 11:54) Unknown Reaction PAULETTE Inhibitors Allergy (Verified 12/07/23 11:54) Cough Penicillins Allergy (Verified 12/07/23 11:54) Unknown Reaction Home Medications insulin aspart U-100 100 unit/mL subcutaneous solution See Rx Instructions .Route .COMPLEX diabetes 08/04/17 [History Confirmed 12/07/23] metformin 850 mg tablet 850 mg PO BID diabetes 08/04/17 [History Confirmed 12/07/23] atorvastatin 80 mg tablet 80 mg PO QPM 30 days #30 tabs 11/09/19 [Rx Confirmed 12/07/23] nitroglycerin 0.4 mg sublingual tablet (Nitrostat) 0.4 mg sublingual Q5-15M PRN Angina 30 days #25 tabs 11/12/19 [Rx Confirmed 12/07/23] clopidogrel 75 mg tablet 75 mg PO DAILY 07/04/20 [History Confirmed 12/07/23] furosemide 20 mg tablet 40 mg PO DAILY 07/04/20 [History Confirmed 12/07/23] insulin glargine-yfgn 100 unit/mL subcutaneous solution (Semglee (insulin glargine-yfgn)) 35 unit subcut DAILY 03/01/22 [History Confirmed 12/07/23] midodrine 2.5 mg tablet 10 mg PO TID 03/01/22 [History Confirmed 12/07/23] potassium chloride 10 mEq capsule,extended release 20 meq PO DAILY 03/01/22 [History Confirmed 12/07/23] semaglutide 1 mg/dose (4 mg/3 mL) subcutaneous pen injector (Ozempic) 2 mg subcut QWEEK 03/01/22 [History Confirmed 12/07/23] insulin aspart U-100 100 unit/mL (3 mL) subcutaneous pen See Protocol subcut AC 04/04/23 [History Confirmed 12/07/23] apixaban 5 mg tablet (Eliquis) 5 mg PO Q12H 30 days #60 tabs 10/20/23 [Rx Confirmed 12/07/23] tamsulosin 0.4 mg capsule (Flomax) 0.4 mg PO DAILY 10/28/23 [History Confirmed 12/07/23] magnesium oxide 400 mg (241.3 mg magnesium) tablet 400 mg PO DAILY #30 tabs 10/30/23 [Rx Confirmed 12/07/23] metoprolol succinate 25 mg tablet,extended release 24 hr 50 mg (2 x 25 mg) PO DAILY #30 tabs 10/30/23 [Rx Confirmed 12/07/23] amiodarone 200 mg tablet 200 mg PO BID 30 days #90 tabs 11/30/23 [Rx Confirmed 12/07/23] citalopram 20 mg tablet (Celexa) 20 mg PO DAILY 11/30/23 [History Confirmed 12/07/23] trazodone 50 mg tablet 50 mg PO QHS 11/30/23 [History Confirmed 12/07/23] levofloxacin 500 mg tablet 500 mg PO DAILY 12/07/23 [History Confirmed 12/07/23] linezolid 600 mg tablet 600 mg PO BID 12/07/23 [History Confirmed 12/07/23] omeprazole 40 mg capsule,delayed release 40 mg PO DAILY 12/07/23 [History Confirmed 12/07/23] Exam Physical Exam Vital Signs: Temp Pulse Resp BP Pulse Ox O2 Del Method 97.4 F L 82 18 100/67 91 L Room Air 12/08/23 09:20 12/08/23 09:20 12/08/23 09:20 12/08/23 09:20 12/08/23 09:20 12/08/23 09:20 Const General: cooperative, comfortable, no acute distress [...] Mental Status: mental status grossly normal Results - Cardiology Labs 12/08/23 06:45 12/08/23 06:45 Lab results: Cardiac Enzymes 12/07/23 Range/Units 12:33 AST 17 (13-39) U/L Total Creatine Kinase 33 (30-223) U/L B-Natriuretic Peptide 118.0 H (5-100) pg/mL CBC 12/07/23 12/08/23 Range/Units 12:33 06:45 RBC 4.28 3.94 (3.90-5.60) X10E6/uL Hgb 13.9 12.7 L (13.0-17.0) g/dL Hct 40.3 36.9 L (38.8-50.0) % Plt Count 196 161 (150-450) x10E3/uL Neut # (Auto) 5.2 3.5 (1.8-7.7) x10E3/uL Lymph # (Auto) 0.6 L 0.7 L (1.00-4.8) x10E3/uL Brantley # (Auto) 0.4 0.4 (0.0-0.8) x10E3/uL Eos # (Auto) 0.0 0.1 (0.0-0.45) x10E3/uL Baso # (Auto) 0.0 0.0 (0.0-0.2) x10E3/uL Comprehensive Metabolic Panel 12/07/23 12/08/23 Range/Units 12:33 06:45 Sodium 137 138 (136-145) mmol/L Potassium 4.3 3.8 (3.5-5.1) mmol/L Chloride 100 100 (98-107) mmol/L Carbon Dioxide 27.4 31.6 H (21.0-31.0) mmol/L BUN 20 24 (7-25) mg/dL Creatinine 1.23 1.36 H (0.70-1.30) mg/dL Glucose 107 H 156 H (70-100) mg/dL Calcium 9.4 9.0 (8.6-10.3) mg/dL Direct Bilirubin 0.30 H (0.03-0.18) mg/dL Indirect Bilirubin 0.8 mg/dL AST 17 (13-39) U/L ALT 18 (7-52) U/L Alkaline Phosphatase 63 (34-104) U/L Total Protein 6.1 L (6.4-8.9) gm/dL Albumin 3.9 (3.5-5.7) gm/dL Intake and Output 12/07/23 12/08/23 12/08/23 23:59 07:59 15:59 Intake Total 360 / 1360 Balance 360 / 1360 Intake: Oral 360 / 360 Other: # Unmeasured Voids 2 # Bowel Movements 1 Weight 136.5 kg 135.8 kg Date of Last Bowel Movement 12/07/23 Patient Weight 12/08/23 23:59 Weight 135.8 kg Lab 12/07/23 12:33 PT 19.8 H INR 1.8 APTT 33.6 EKG Interpretations EKG Attestation EKG: I reviewed this ECG and interpreted as documented below: (Normal sinus rhythm with poor R wave progression anterior lead) A&P - Cardiology (1) Orthostatic hypotension: Code(s): I95.1 - Orthostatic hypotension Plan Assessment 1. Symptomatic orthostatic hypotension with few falls related to that. Patientis known to have chronic diabetic autonomic insufficiency and uses midodrine regularly. This has been worsened by recent increase of amiodarone and metoprolol which was done to optimize his heart rate control. The need for thatis no longer present considering the patient was cardioverted last week 2. Coronary disease with prior PCI to LAD 3. Status post AICD implant 4. Persistent atrial fibrillation status post recent ablation. However he had several recurrences recently his last cardioversion was last week 5. Obesity 6. Diabetes mellitus with history of autonomic diabetic dysfunction with recurrent orthostatic hypotension 7. Obesity Plan 1. I agree with gentle hydration. I will reduce the dose of amiodarone to oncedaily I will hold metoprolol for now and plan to reintroduce at half the dose ifblood pressure recovered 2. Continue the use of midodrine 3. Will check morning plasma cortisol Documented By: Dallas Em MD 12/08/23 1101 Signed By: <Electronically signed by MD Dallas Em> 12/08/23 1113 [facility] Work Phone: Discharge summary Author Derrek Tay [facility] April 05, 2023 5:24pm Note Date/Time April 05, 2023 5:22 pm [facility] [address] [place] [address] Discharge Summary Signed Patient: Harriett Thakkar MR#: [id number] : 1965 Acct:[id number] Age/Sex: 58 / M Adm Date: 3 Loc: Room: [address] [place] [address]: Derrek Tay DO Copies to: [...] pressure, he has a history of prior PR and states that they feel similar. In [...] UNITS UNDER THE SKIN DAILY Follow Up: [facility] [Outside] - 04/11/23 11:00 am (Please keep previously scheduled follow up appointment for the following date and time, please call to reschedule if needed.) [facility] [Outside] (The office is aware of [...] By: <Electronically signed by Derrek Tay DO> 04/05/231723 [facility] Work Phone: Discharge summary Author Angel Griggs [facility] October 20, 2023 1:51pm Note Date/Time October 20, 2023 1 :51pm [facility] [address] [place] [address] Discharge Summary Signed Patient: Harriett Thakkar MR#: [id number] : 1965 Acct:[id number] Age/Sex: 58 / M Adm Date: 4 Loc: Room: Attending Dr: Angel Griggs MD Copies to: Angel Griggs MD, [facility] Toby Amador MD~ Providers Date [...] Vital Signs: O2 Del Method Room Air 02/01/24 13:04 Discharge Plan Discharge Plan Patient Disposition: [...] PO DAILY Documented By: Angel Griggs MD, [facility] 4 1350 Signed By: <Electronically signed by MD SAYDA Griggs> 10/20/23 1351 [facility] Work Phone: [facility]No [facility] [employer] Other Evaluation noteNo assessment information available [facility] Work Phone: evaluation note* Diagnosis Onset Date Resolution Status Chest pressure acute [facility] Work Phone: evaluation note* Diagnosis Onset Date Resolution Status Abnormal QT interval present on electrocardiogram acute Chest pressure acute CKD (chronic kidney disease) stage 3, GFR 30-59 ml/min acute Diabetes mellitus acute Dyspnea acute History of PTCA 1 acute Hyperlipidemia acute Orthostatic hypotension acut e Paroxysmal atrial fibrillation acute Sleep apnea acute [facility] Work Phone: Evaluation note* Diagnosis Atrial [...] (CMS/HCC) Atrial fibrillation documented in this encounter [facility] Work Phone: Evaluation note* Diagnosis Atrial fibrillation (CMS/HCC) Atrial fibrillation Paroxysmal atrial fibrillation (CMS/HCC) Atrial fibrillation Coronary artery disease involving [place] coronary artery of [place] heart without angina pectoris History of PTCA Postsurgical percutaneous transluminal coronary angioplasty status History of PR (myocardial infarction) Old myocardial infarction Ischemic cardiomyopathy Other specified forms of chronic ischemic heart disease Ventricular tachycardia, nonsustained (CMS/HCC) S/P implantation of automatic cardioverter/defibrillator (AICD) Automatic implantable cardiac defibrillator in situ Essential hypertension Unspecified essential hypertension Hyperlipidemia, unspecified hyperlipidemia type Orthostatic hypotension Atrial fibrillation (CMS/HCC) Atrial fibrillation documented in this encounter [facility] Work Phone: Evaluation note* Diagnosis Atrial fibrillation (CMS/HCC) Atrial fibrillation Primary cardiomyopathy (CMS/HCC) Other primary cardiomyopathies Atrial fibrillation (CMS/HCC) Atrial fibrillation documented in this encounter [facility] Work Phone: Evaluation note* Diagnosis Atrial fibrillation (CMS/HCC) Atrial fibrillation Presence of automatic cardioverter/defibrillator (AICD) Automatic implantable cardiac defibrillator in situ Ventricular tachycardia, nonsustained (CMS/HCC) Atrial fibrillation (CMS/HCC) Atrial fibrillation documented in this encounter [facility] Work Phone: Evaluation note* Diagnosis Atrial fibrillation (CMS/HCC) Atrial fibrillation Presence of automatic cardioverter/defibrillator (AICD) Automatic implantable cardiac defibrillator in situ Ventricular tachycardia, nonsustained (CMS/HCC) Atrial fibrillation (CMS/HCC) Atrial fibrillation documented in this encounter [facility] Work Phone: Evaluation note* Diagnosis Atrial fibrillation (CMS/HCC)- Primary Atrial fibrillation Atrial fibrillation (CMS/HCC) Atrial fibrillation Ischemic cardiomyopathy Other specified forms of chronic ischemic heart disease Atrial fibrillation (CMS/HCC) Atrial fibrillation documented in this encounter [facility] Work Phone: Evaluation note* Diagnosis Atrial flutter, unspecified type (CMS/HCC) Paroxysmal atrial fibrillation (CMS/HCC) Atrial fibrillation H/O cardiac radiofrequency ablation Coronary artery disease involving [place] coronary artery of [place] heart without angina pectoris Ischemic cardiomyopathy Other [...] unspecified hypotension type documented in this encounter [facility] Work Phone: Evaluation note* Diagnosis Ventricular tachycardia, nonsustained (CMS/HCC) Presence of automatic cardioverter/defibrillator (AICD) Automatic implantable cardiac defibrillator in situ documented in this encounter [facility] Work Phone: Evaluation note* Diagnosis Dyspnea on exertion Other dyspnea and respiratory abnormality Ischemic cardiomyopathy Other specified forms of chronic ischemic heart disease documented in this encounter [facility] Work Phone: Evaluation note* Diagnosis Paroxysmal atrial fibrillation with rapid ventricular response (CMS/HCC) documented in this encounter [facility] Work Phone: Evaluation note* Diagnosis Onset Date Resolution Status Atrial fibrillation with RVR acute [facility] Work Phone: Evaluation note* Diagnosis Onset Date Resolution Status Atrial fibrillation with RVR acute Diabetes mellitus acute Hypomagnesemia acute [facility] Work Phone: Evaluation note* Diagnosis Ventricular tachycardia, nonsustained (CMS/HCC) Presence of automatic cardioverter/defibrillator (AICD) Automatic implantable cardiac defibrillator in situ documented in this encounter [facility] Work Phone: Evaluation note* Diagnosis Presence of automatic cardioverter/defibrillator (AICD) Automatic implantable cardiac defibrillator in situ Ventricular tachycardia, nonsustained (CMS/HCC) documented in this encounter [facility] Work Phone: Evaluation note* Diagnosis History of PR (myocardial infarction) Old myocardial infarction Paroxysmal atrial fibrillation (CMS/HCC) Atrial fibrillation documented in this encounter [facility] Work Phone: Evaluation note* Diagnosis Onset Date Resolution Status Diabetes mellitus acute Hypomagnesemia acute Atrial fibrillation with RVR resolved Low blood pressure acute [facility] Work Phone: Evaluation note* Diagnosis Onset Date Resolution Status Diabetes mellitus acute Hypomagnesemia acute Atrial fibrillation with RVR resolved A-fib acute BMI 38.0-38.9,adult acute Diabetes mellitus acute Hyperlipidemia acute Low blood pressure acute Multiple falls acute Orthostatic hypotension acut e Orthostatic hypotension dysautonomic syndrome acute ARLET (obstructive sleep apnea) acute Peripheral arterial disease acute [facility] Work Phone: Evaluation note* Diagnosis Essential hypertension- Primary Unspecified essential hypertension ST elevation myocardial infarction (STEMI) of anterior wall (CMS/HCC) Acute myocardial infarction of other anterior wall, episode of care unspecified Ventricular tachycardia, nonsustained (CMS/HCC) Primary cardiomyopathy (CMS/HCC) Other primary cardiomyopathies Paroxysmal atrial fibrillation with rapid ventricular response (CMS/HCC) documented in this encounter [facility] Work Phone: Evaluation note* Diagnosis Onset Date Resolution Status Diabetes mellitus acute Hypomagnesemia acute Atrial fibrillation with RVR resolved A-fib acute BMI 38.0-38.9,adult acute Diabetes mellitus acute Hyperlipidemia acute Orthostatic hypotension acut e Orthostatic hypotension dysautonomic syndrome acute ARLET (obstructive sleep apnea) acute Peripheral arterial disease acute [facility] Work Phone: History and physical note Author Toy Yeager [facility] April 02, 2023 5:21pm Note Date/Time April 02, 2023 5:16 pm [facility] [address] [place] [address] Hospitalist H&P Signed Patient: Harriett Thakkar MR#: [id number] : 1965 Acct:[id number] Age/Sex: 58 / M Adm Date: 3 Loc: Room: [address] [place] [address] Type: ADM INOo Attending Dr: Toy Yeager MD Copies to: MD Toy lEizondo MD~ HPI DATE OF EXAMINATION: 04/02/23 CHIEF [...] bilateralarms. [facility] [facility] and started feeling above symptoms which are [...] % (Auto) 18.7 % (.) 04/02/23 09:56 Brantley % (Auto) 9.6 % (.) 04/02/23 09:56 Eos % (Auto) 3.0 % (.) 04/02/23 09:56 Baso % (Auto) 1.0 % (.) 04/02/23 09:56 Nucleat RBC Rel Count 0.2 /100 WBC (0-0.5) 04/02/23 09:56 Neut # (Auto) 5.3 x10E3/uL (1.8-7.7) 04/02/23 09:56 Lymph # (Auto) 1.5 x10E3/uL (1.00-4.8) 04/02/23 09:56 Brantley # (Auto) 0.8 x10E3/uL (0.0-0.8) 04/02/23 09:56 [...] signed by Toy Yeager MD> 04/02/23 1721 [facility] Work Phone: History and physical note Author Ryley Higgins [facility] December 07, 2023 5:42pm Note Date/Time December 07, 2023 5:4 1pm [facility] [address] [place] [address] Hospitalist H&P Signed Patient: Harriett Thakkar MR#: [id number] : 1965 Acct:[id number] Age/Sex: 58 / M Adm Date: 4 Loc: Room: [address] [place] [address] Type: ADM INOo Attending Dr: Ryley Higgins DO Copies to: DO Toby Green MD~ HPI DATE OF EXAMINATION: 12/07/23 CHIEF COMPLAINT: Multiple falls with low blood pressure for 3 days. HISTORY OF PRESENT ILLNESS: This is a 1-year-old man who came to the emergency room after having multiple falls, especially yesterday and today. In the emergency room his blood pressurewas only 78/43. He had taken both his usual dose of midodrine this morning as well as his usual dose of Toprol this morning. In the emergency room he was given 1 L of IV fluids but when they set the patient up his systolic blood pressure dropped only 77 and so it was decided that he should be put in hospitalovernight. The patient explains that he had a cardioversion exactly 7 days ago by his final installer inspector. He has been seeing both Dr. Em and Dr. Griggs. He has been hopeful that he has been in normal sinus rhythm after the cardioversion last Tuesday. He has a complicated history with atrial fibrillation and flutter that becomes rapidly ventricular responsive. He had an ablation in August but after that had hospital presentations with recurrent rapid ventricular response. Back on October 29 a decision was made to increase his amiodarone and Toprol dose. The patient reports that he was in his usual state of health last week until the when he could feel that he was getting lightheaded and also some shortness of breath. He began having the sensation that he was lightheaded withany upright physical activity. He had family member stay at the house to watch him. Yesterday he had 2 major falls. One of them was while ambulating slowly. The second 1 was while he was in the bathroom (likely in the middle or the end of micturition) and he had a fall from standing level. While doing the intake with the admissions nurse the patient was questioned about sleep apnea. He explains that he breathes through his mouth so he could not find a mask that would be useful for him. Therefore he has not been using his sleep apnea machine for a long time. He did comment that he understands thelink between obstructive sleep apnea and his atrial fibrillation. Today while I am checking him in his blood pressure while he is lying flat in bed is actually fairly good. The nurse got 108/62. I got 132/65. But then I had him sit upright on the edge of the bed and his blood pressure dropped to 82/62 and he looks symptomatic of the hypotension. I had him stand up briefly but he was uncomfortable so we had to sit him back down and his blood pressure seated back on the edge of the bed again was 79/57. Review of Systems Review of Systems Review of systems: 10 systems are reviewed and are negative except as mentioned elsewhere in the documentation. [facility] Medical History (Updated 12/07/23 @ 17:38 by Ryley Higgins DO) BMI 38.0-38.9,adult Peripheral arterial disease ARLET (obstructive sleep apnea) non-compliant with sleep apnea mask. Orthostatic hypotension CAD (coronary artery disease) Amputated toe of [...] Status: Never smoker Substance Use Type: None Meds Medications and Allergies Allergies penicillamine Allergy (Unknown, Verified 12/07/23 11:54) unknown Sulfa (Sulfonamide Antibiotics) Allergy (Unknown, Verified 12/07/23 11:54) Unknown Reaction PAULETTE Inhibitors Allergy (Verified 12/07/23 11:54) Cough Penicillins Allergy (Verified 12/07/23 11:54) Unknown Reaction Home Medications insulin aspart U-100 100 unit/mL subcutaneous solution See Rx Instructions .Route .COMPLEX diabetes 08/04/17 [History Confirmed 12/07/23] metformin 850 mg tablet 850 mg PO BID diabetes 08/04/17 [History Confirmed 12/07/23] atorvastatin 80 mg tablet 80 mg PO QPM 30 days #30 tabs 11/09/19 [Rx Confirmed 12/07/23] nitroglycerin 0.4 mg sublingual tablet (Nitrostat) 0.4 mg sublingual Q5-15M PRN Angina 30 days #25 tabs 11/12/19 [Rx Confirmed 12/07/23] clopidogrel 75 mg tablet 75 mg PO DAILY 07/04/20 [History Confirmed 12/07/23] furosemide 20 mg tablet 40 mg PO DAILY 07/04/20 [History Confirmed 12/07/23] insulin glargine-yfgn 100 unit/mL subcutaneous solution (Semglee (insulin glargine-yfgn)) 50 unit subcut DAILY 03/01/22 [History Confirmed 12/07/23] midodrine 2.5 mg tablet 10 mg PO TID 03/01/22 [History Confirmed 12/07/23] potassium chloride 10 mEq capsule,extended release 20 meq PO DAILY 03/01/22 [History Confirmed 12/07/23] semaglutide 1 mg/dose (4 mg/3 mL) subcutaneous pen injector (Ozempic) 2 mg subcut QWEEK 03/01/22 [History Confirmed 12/07/23] insulin aspart U-100 100 unit/mL (3 mL) subcutaneous pen See Protocol subcut AC 04/04/23 [History Confirmed 12/07/23] apixaban 5 mg tablet (Eliquis) 5 mg PO Q12H 30 days #60 tabs 10/20/23 [Rx Confirmed 12/07/23] tamsulosin 0.4 mg capsule (Flomax) 0.4 mg PO DAILY 10/28/23 [History Confirmed 12/07/23] magnesium oxide 400 mg (241.3 mg magnesium) tablet 400 mg PO DAILY #30 tabs 10/30/23 [Rx Confirmed 12/07/23] metoprolol succinate 25 mg tablet,extended release 24 hr 50 mg (2 x 25 mg) PO DAILY #30 tabs 10/30/23 [Rx Confirmed 12/07/23] amiodarone 200 mg tablet 200 mg PO BID 30 days #90 tabs 11/30/23 [Rx Confirmed 12/07/23] citalopram 20 mg tablet (Celexa) 20 mg PO DAILY 11/30/23 [History Confirmed 12/07/23] trazodone 50 mg tablet 50 mg PO QHS 11/30/23 [History Confirmed 12/07/23] levofloxacin 500 mg tablet 500 mg PO DAILY 12/07/23 [History Confirmed 12/07/23] linezolid 600 mg tablet 600 mg PO BID 12/07/23 [History Confirmed 12/07/23] omeprazole 40 mg capsule,delayed release 40 mg PO DAILY 12/07/23 [History Confirmed 12/07/23] Exam Physical Exam Vital Signs: Temp Pulse Resp BP Pulse Ox O2 Del Method 98.3 F 75 20 108/73 95 Room Air 12/07/23 16:53 12/07/23 16:53 12/07/23 16:53 12/07/23 16:53 12/07/23 16:53 12/07/23 16:53 Narrative: GEN: BMI is 38.6. Does look visibly uncomfortable with lightheadedness just sitting upright in bed. Head: Normal Cephalic, Atraumatic. Eyes: Conjunctiva and sclera clear bilaterally. Nose: External nose and nares normal bilaterally. Mouth: Lips and tongue normal. Neck: No JVD. No thyromegaly. No lymphadenopathy. Lungs: Clear to auscultation bilaterally, no wheezing, no crackles. Heart: Regular rate and rhythm, no murmurs, rubs, or gallops. Abdomen: Soft, normal bowel sounds, no rigidity, guarding, or acute peritoneal signs. Extremities: No swelling or cords in the calves bilaterally, does have 2+ chronic looking edema in the ankles bilaterally. Skin: No systemic rashes or lesions. Veins are flat, despite IV fluids and theemergency room. Psychiatric: Calm. Conversant. Cooperative. Neuro: Awake, Alert, and Oriented x 3. No focal or lateralizing deficits. Results - Hospitalist H&P Lab Results Labs: Laboratory Last Values Corrected WBC 6.3 X10E3/uL (4.1-10.5) 12/07/23 12:33 Uncorrected WBC Count 6.3 x10E3/uL (4.1-10.5) 12/07/23 12:33 RBC 4.28 X10E6/uL (3.90-5.60) 12/07/23 12:33 Hgb 13.9 g/dL (13.0-17.0) 12/07/23 12:33 Hct 40.3 % (38.8-50.0) 12/07/23 12:33 MCV 94.3 fl (83.5-101) 12/07/23 12:33 MCH 32.5 pg (27.5-35.2) 12/07/23 12:33 MCHC 34.4 g/dL (32.5-35.6) 12/07/23 12:33 RDW 16.8 % (12.0-14.8) H 12/07/23 12:33 Plt Count 196 x10E3/uL (150-450) 12/07/23 12:33 MPV 8.2 fl (6.6-10.1) 12/07/23 12:33 Neut % (Auto) 82.9 % (.) 12/07/23 12:33 Lymph % (Auto) 9.2 % (.) 12/07/23 12:33 Brantley % (Auto) 6.6 % (.) 12/07/23 12:33 Eos % (Auto) 0.7 % (.) 12/07/23 12:33 Baso % (Auto) 0.6 % (.) 12/07/23 12:33 Nucleat RBC Rel Count 0.0 /100 WBC (0-0.5) 12/07/23 12:33 Neut # (Auto) 5.2 x10E3/uL (1.8-7.7) 12/07/23 12:33 Lymph # (Auto) 0.6 x10E3/uL (1.00-4.8) L 12/07/23 12:33 Brantley # (Auto) 0.4 x10E3/uL (0.0-0.8) 12/07/23 12:33 Eos # (Auto) 0.0 x10E3/uL (0.0-0.45) 12/07/23 12:33 Baso # (Auto) 0.0 x10E3/uL (0.0-0.2) 12/07/23 12:33 Monocyte Dist Width 18.44 % (0.00-20.00) 12/07/23 12:33 PT 19.8 Seconds (9.0-12.9) H 12/07/23 12:33 INR 1.8 12/07/23 12:33 APTT 33.6 Seconds (25.1-36.5) 12/07/23 12:33 PHA Creatinine Clear 93.69 12/07/23 12:33 Sodium 137 mmol/L (136-145) 12/07/23 12:33 Potassium 4.3 mmol/L (3.5-5.1) 12/07/23 12:33 Chloride 100 mmol/L (98-107) 12/07/23 12:33 Carbon Dioxide 27.4 mmol/L (21.0-31.0) 12/07/23 12:33 Anion Gap 13.9 mEq/L (6.0-15.0) 12/07/23 12:33 BUN 20 mg/dL (7-25) 12/07/23 12:33 Creatinine 1.23 mg/dL (0.70-1.30) 12/07/23 12:33 Est GFR (CKD-EPI) > 60.0 mL/Min 12/07/23 12:33 Glucose 107 mg/dL (70-100) H 12/07/23 12:33 Calcium 9.4 mg/dL (8.6-10.3) 12/07/23 12:33 Total Bilirubin 1.1 mg/dl (0.3-1.0) H 12/07/23 12:33 Direct Bilirubin 0.30 mg/dL (0.03-0.18) H 12/07/23 12:33 Indirect Bilirubin 0.8 mg/dL 12/07/23 12:33 AST 17 U/L (13-39) 12/07/23 12:33 ALT 18 U/L (7-52) 12/07/23 12:33 Alkaline Phosphatase 63 U/L (34-104) 12/07/23 12:33 Total Creatine Kinase 33 U/L (30-223) 12/07/23 12:33 Troponin I High Sens 8.0 pg/mL (0.0-20.0) 12/07/23 12:33 B-Natriuretic Peptide 118.0 pg/mL (5-100) H 12/07/23 12:33 Total Protein 6.1 gm/dL (6.4-8.9) L 12/07/23 12:33 Albumin 3.9 gm/dL (3.5-5.7) 12/07/23 12:33 Globulin 2.2 gm/dL 12/07/23 12:33 Albumin/Globulin Ratio 1.8 12/07/23 12:33 Assessment & Plan Assessment/Plan (1) Orthostatic hypotension dysautonomic syndrome: (2) Multiple falls: (3) A-fib: (4) Orthostatic hypotension: (5) Hyperlipidemia: (6) Diabetes mellitus: (7) ARLET (obstructive sleep apnea): (8) Peripheral arterial disease: (9) BMI 38.0-38.9,adult: Plan Assessment: Recurrent orthostatic hypotension in a patient with known dysautonomia. Multiple falls at home with collapse. Persistent orthostatic hypotension despite IV fluids in emergency room. Paroxysmal atrial fibrillation, status post cardioversion 7 days ago. Diabetes mellitus type 2. Obstructive sleep apnea?noncompliant with sleep apnea machine. Prefer arterial disease. Hyperlipidemia. Apparent history of BPH as he is on Flomax. BMI of 38.6. Plan: Placement in the hospital and observation status. Provide 1 more liter of IV fluids now. Provide the ProAmatine now. He missed a dose at lunchtime today. Consult to cardiology with [facility]. Check orthostatic vital signs 4 times a day and as needed. If he persists with additional hypotension I would consider giving him 50 g of albumin. For now we should do the following: Hold Flomax. Hold amiodarone. Hold the Lasix he normally takes at home in the morning. I will reduce his TOPROL dose from 50 mg daily to 25 mg daily and monitor for any rebound tachycardia. IP vs OBS Justification Based on differential dx, clinical care plan, and risk of adverse events, if untreated, in my clinical judgement this patient requires an acute care setting as: OBSERVATION because of an expectation of an under 2 midnight stay. Estimated length of stay (# of days): 2 Documented By: Ryley Higgins, 1731 Signed By: <Electronically signed by Ryley Higgins, DO> 12/07/23 1742 [facility] Work Phone: History general Narrative - Reported* Type Description Date Medical History HTN Medical History Hypercholesterolemia Medical History DM Medical History PVD WITH ULCER Medical History CAD w/PR Surgical History Heart Catheterization 2012 Surgical History Diskectomy-cervical Surgical History toe amputations x 4 Hospitalization History See past surgical hx [facility] [facility] Work Phone: Hospital Discharge instructions Additional Instructions Follow-up with your primary care doctor Return to ED for develop worsening symptoms or concerns[facility] Work Phone: Hospital Discharge instructions Additional Instructions No driving for 24 hours. No making big decisions today. You recieved conscious sedation. Maintain appointments, and continue medication as ordered.[facility] Work Phone: Hospital Discharge instructions Additional Instructions you can buy over the counter Magox 400 mg and take [facility] Work [facility]: Hospital Discharge instructions Additional Instructions Increase fluid intake, wear compression stocking and change position gradually [facility] Work Phone: Progress note Author Toy Yeager [facility] April 03, 2023 1:05pm Note Date/Time April 03, 2023 1:06 pm [facility] [address] [place] [address] Hospitalist Progress Note Signed Patient: Harriett Thakkar MR#: [id number] : 1965 Acct:[id number] Age/Sex: 58 / M Adm Date: 3 Loc: 3T Room: [address] [place] [address] Type: ADM INOo Attending Dr: Toy Yeager [...] arms. Patient was shopping last night at [employer] and started feeling above symptoms which are [...] signed by Toy Yeager MD> 04/03/23 1305 [facility] Work Phone: Progress note Author Derrek Tay [facility] April 04, 2023 11:33am Note Date/Time April 04, 2023 11:1 5am [facility] [address] [place] [address] Hospitalist Progress Note Signed Patient: Harriett Thakkar MR#: [id number] : 1965 Acct:[id number] Age/Sex: 58 / M Adm Date: 3 Loc: Room: [address] [place] [address] Type: ADM INOo Attending Dr: Derrek Tay [...] Signed By: <Electronically signed by Derrek Tay, > 04/04/23 1133 [facility] Work Phone: Progress note Author Angel Griggs [facility] April 04, 2023 6:25pm Note Date/Time April 04, 2023 6:25 pm [facility] [address] [place] [address] Cardiology Progress Note Signed Patient: Harriett Thakkar MR#: [id number] : 1965 Acct:[id number] Age/Sex: 58 / M Adm Date: 3 Loc: Room: [address] [place] [address] Type: ADM INOo Attending Dr: Derrek Tay [...] will try tomake arrangements for referral to [facility]. Meanwhile I discussed with him also the [...] % (Auto) 66.2 Lymph % (Auto) 20.2 Brantley % (Auto) 9.8 Eos % (Auto) 3.1 Baso % (Auto) 0.7 Nucleat RBC Rel Count 0.1 Neut # (Auto) 4.1 Lymph # (Auto) 1.3 Brantley # (Auto) 0.6 Eos # (Auto) 0.2 [...] MPV Neut % (Auto) Lymph % (Auto) Brantley % (Auto) Eos % (Auto) Baso % (Auto) Nucleat RBC Rel Count Neut # (Auto) Lymph # (Auto) Brantley # (Auto) Eos # (Auto) Baso # [...] 500 ms Documented By: Angel Griggs MD, [facility] 3 1816 Signed By: <Electronically signed by [facility] Angel Griggs> 04/04/23 1825 [facility] Work Phone: Progress note Author Ryley Higgins [facility] December 08, 2023 10:25am Note Date/Time December 08, 2023 10: 25am [facility] [address] [place] [address] Hospitalist Progress Note Signed Patient: Harriett Thakkar MR#: [id number] : 1965 Acct:[id number] Age/Sex: 58 / M Adm Date: 4 Loc: Room: [address] [place] [address] Type: ADM INOo Attending Dr: Ryley Higgins DO Copies to: ~ Date of Service: 12/08/2023 Subjective Subjective Narrative: This morning when I walk into the room the bedside nurses just got orthostatic vitals. There are as follows: Lying flat his blood pressure is 100/67. His pulse was 82 on pulse oximeter. Sitting his blood pressure dropped to 86/59 and his pulse was 81. Standing up his blood pressure dropped to 56/41. Looking on the monitor his heart rate is at about 70 bpm but with a normal sinusrhythm and no A-fib. The patient is much less symptomatic of the lightheadedness and dizziness today,compared to yesterday evening, when I could only have him stand up for a couple moments before he had to sit back down. And sitting on the edge of the bed he reports that his orthostatic dizziness improved after the nurses did not. He denies other problems at this time: No headache. No chest pain or palpitations. No sensation of tachycardia. No fevers or chills. I discussed supportive stockings with him. He says he has some difficulty getting these on at home so he is disinclined to use them. He does say that sometimes he will use supportive diabetic socks. Exam Physical Exam Vital Signs: Temp Pulse Resp BP Pulse Ox O2 Del Method 97.4 F L 82 18 100/67 91 L Room Air 12/08/23 09:20 12/08/23 09:20 12/08/23 09:20 12/08/23 09:20 12/08/23 09:20 12/08/23 09:20 Narrative: Lungs: Clear to auscultation bilaterally, no wheezing, no crackles. Heart: Regular rate and rhythm, no murmurs, rubs, or gallops. Abdomen: Soft, normal bowel sounds, no rigidity, guarding, or acute peritoneal signs. Extremities: No swelling or cords in the calves bilaterally, does have 2+ chronic looking edema in the ankles bilaterally. This actually looks improved on the next morning, likely due to leg elevation while he was in bed all night. I do not see any swelling or knots in the calves bilaterally. Objective Lab Results 12/08/23 06:45 12/08/23 06:45 Meds Allergies and Active Meds Allergies penicillamine Allergy (Unknown, Verified 12/07/23 11:54) unknown Sulfa (Sulfonamide Antibiotics) Allergy (Unknown, Verified 12/07/23 11:54) Unknown Reaction PAULETTE Inhibitors Allergy (Verified 12/07/23 11:54) Cough Penicillins Allergy (Verified 12/07/23 11:54) Unknown Reaction Active Meds: Active Medications Generic Name Dose Route Start Last Admin Trade Name Jeffry PRN Reason Stop Dose Admin Apixaban 5 mg 12/07/23 21:00 12/08/23 09:57 Apixaban 5 Mg Tablet PO 12/06/24 20:59 5 mg BID RADHA Administration Atorvastatin Calcium 80 mg 12/07/23 21:00 12/07/23 21:20 Atorvastatin 80 Mg Tablet PO 12/06/24 20:59 80 mg QPM RADHA Administration Citalopram Hydrobromide 20 mg 12/08/23 09:00 12/08/23 09:56 Citalopram 20 Mg Tablet PO 12/07/24 08:59 20 mg DAILY RADHA Administration Clopidogrel Bisulfate 75 mg 12/08/23 09:00 12/08/23 09:56 Clopidogrel Bisulfate 75 Mg Tablet PO 12/07/24 08:59 75 mg DAILY RADHA Administration Dextrose 0 gm 12/07/23 17:24 Dextrose 50% In Water 25 Gm/50 Ml Syringe IV-PUSH 12/06/24 17:23 PRN PRN Hypoglycemia Glucose 0 gm 12/07/23 17:24 Dextrose 40% Gel 15 Gm Tube PO 12/06/24 17:23 PRN PRN Hypoglycemia Insulin Aspart 0 units 12/07/23 22:00 12/08/23 10:00 Insulin Aspart 300 Units/3 Ml Insuln.Pen SUBCUT 12/06/24 21:59 1 units TID.WM.HS RADHA Administration Protocol Insulin Glargine 35 units 12/08/23 09:00 12/08/23 10:00 Insulin Glargine 300 Units/3 Ml Insuln.Pen SUBCUT 12/07/24 08:59 35 units DAILY RADHA Administration Magnesium Oxide 400 mg 12/08/23 11:30 Magnesium Oxide 400 Mg Tablet PO 12/07/24 11:29 DAILY.AC.LUNCH RADHA Metformin HCl 850 mg 12/08/23 08:00 12/08/23 09:57 Metformin 850 Mg Tablet PO 12/07/24 07:59 850 mg BID.WITH.MEALS RADHA Administration Metoprolol Succinate 25 mg 12/08/23 09:00 12/08/23 09:56 Metoprolol Succinate 25 Mg Tab.Er.24h PO 12/07/24 08:59 25 mg DAILY RADHA Administration Midodrine 10 mg 12/07/23 18:00 12/08/23 06:31 Midodrine 5 Mg Tablet PO 12/06/24 17:59 10 mg TID.7A.12P.5P RADHA Administration Nitroglycerin 0.4 mg 12/07/23 17:26 Nitroglycerin 0.4 Mg Tab.Subl SUBLINGUAL 12/06/24 17:25 Q5M PRN Angina Pantoprazole Sodium 40 mg 12/07/23 21:00 12/08/23 09:56 Pantoprazole 40 Mg Tablet.Dr PO 12/06/24 20:59 40 mg BID RADHA Administration Potassium Chloride 20 meq 12/08/23 09:00 12/08/23 09:56 Potassium Chloride Er 10 Meq Capsule.Er PO 12/07/24 08:59 20 meq DAILY RADHA Administration Sodium Chloride 0 ml 12/07/23 11:53 12/07/23 12:21 Sodium Chloride 0.9 % 10 Ml Syringe IV-PUSH 12/06/24 11:52 10 ml PRN PRN Administration Flush Sodium Chloride 0 ml 12/07/23 22:00 12/08/23 09:59 Sodium Chloride 0.9 % 10 Ml Syringe IV-PUSH 12/06/24 21:59 10 ml QSHIFT RADHA Administration Trazodone HCl 50 mg 12/07/23 22:00 12/07/23 21:20 Trazodone 50 Mg Tablet PO 12/06/24 21:59 50 mg QHS RADHA Administration A&P - Hospitalist Assessment/Plan (1) Orthostatic hypotension dysautonomic syndrome: (2) Multiple falls: (3) A-fib: (4) Orthostatic hypotension: (5) Hyperlipidemia: (6) Diabetes mellitus: (7) ARLET (obstructive sleep apnea): (8) Peripheral arterial disease: (9) BMI 38.0-38.9,adult: Plan Assessment: Recurrent orthostatic hypotension in a patient with known dysautonomia. Multiple falls at home with collapse. Persistent orthostatic hypotension despite IV fluids in emergency room. Paroxysmal atrial fibrillation, status post cardioversion 7 days ago. Diabetes mellitus type 2. Obstructive sleep apnea?noncompliant with sleep apnea machine. Prefer arterial disease. Hyperlipidemia. Apparent history of BPH as he is on Flomax. BMI of 38.6. Plan: Will give 25 g of IV albumin one-time now and await cardiology input. For now, the following medication changes have been made from his home regimen. Holding Flomax. Holding amiodarone. Holding the Lasix he normally takes at home in the morning. On a reduced: TOPROL dose from 50 mg daily to 25 mg daily and monitor for any rebound tachycardia. Documented By: Ryley Higgins DO 1021 Signed By: <Electronically signed by Ryley Higgins DO> 12/08/23 1025 [facility] Work Phone: Reason for referral (narrative)* Consultation (Routine) - Authorized Specialty Diagnoses / Procedures Referred By Contac t Referred To Contact Cardiology Diagnoses Paroxysmal atrial fibrillation (CMS/HCC) Coronary artery disease involving iqugmiut coronary artery of iqugmiut heart without angina pectoris Procedures Follow Up In Cardiology Angel Griggs MD [address] [facility] 2, [place] [address] [place] [address] Angel Griggs MD [address] [facility] 2, [place] [place] [address] Referral ID Status Reason Start Date Expiration Date V isits Requested Visits Authorized [id number] Authorized 07/12/2023 07/11/2024 1 1 * Cardiovascular (Routine) - Pending Review Specialty Diagnoses / Procedures Referred By Timothy t Referred To Contact Diagnoses Paroxysmal atrial fibrillation ([facility]) Procedures ECG 12 Lead Angel Griggs MD [address] [place] [address] 2, [address] [address] Referral ID Status Reason Start Date Expiration Date V isits Requested Visits Authorized [id number] Pending Review 07/12/2023 07/11/2024 [address] [facility] Work Phone: Reason for visit NarrativeFCCC Potential Procedure 06/13[place] [employer] Other Chief Complaint * HARRIETT THAKKAR is [...] a visit to the emergency department at [facility] for palpitations and was found to be [...] monitor done in March [address] [facility]. I willtry to retrieve a copy [...] Chief Complaint AFIB sob-sent by Chief Complaint AFNORRIS sob-sent by dr estrella Chief Complaint AFIB sob-sent by dr estrella dizzy Reason for Visit Atrial fibrillation with RVR Chief Complaint AFIB sob-sent by dr estrella dizzy dizzy Reason for Visit Atrial fibrillation with RVR Diabetes mellitus Hypomagnesemia Chief Complaint sob-sent by dr estrella dizzy dizzy L97.522 Afib weakness Reason for Visit Diabetes mellitus Hypomagnesemia Atrial fibrillation with RVR Low blood pressure Chief Complaint sob-sent by dr estrella dizzy dizzy L97.522 Afib weakness weakness Reason for Visit Diabetes mellitus Hypomagnesemia Atrial fibrillation with RVR A-fib BMI 38.0-38.9,adult Diabetes mellitus Hyperlipidemia Low blood pressure Multiple falls Orthostatic hypotension Orthostatic hypotension dysautonomic syndrome ARLET (obstructive sleep apnea) Peripheral arterial disease Chief Complaint afib dizzy dizzy L97.522 Afib weakness weakness Reason for Visit Diabetes mellitus Hypomagnesemia Atrial fibrillation with RVR A-fib BMI 38.0-38.9,adult Diabetes mellitus Hyperlipidemia Orthostatic hypotension Orthostatic hypotension dysautonomic syndrome ARLET (obstructive sleep apnea) Peripheral arterial disease Advance Directives No Advanced Directives Records Found [...] By Contac t Referred To Contact Diagnoses Essential hypertension Procedures ECG 12 lead (Clinic Performed) Lior Villeda MD [address] [facility] 3, [place] [address] [place] [address] Referral ID Status Reason Start Date Expiration Date V isits Requested Visits Authorized [id number] Authorized 12/16/2023 12/15/2024 1 1 Specialty Diagnoses / Procedures Referred By Timothy t Referred To Contact Cardiology Diagnoses Dyspnea on exertion Ischemic cardiomyopathy Procedures Transthoracic Echo Limited [place] ECHO TRANSTHORC R-T 2D W/WO M-MODE REC F-UP/LMTD [place] DOP ECHOCARD COLOR FLOW VELOCITY MAPPING [place] DOP ECHOCARD PULSE WAVE W/SPECTRAL F-UP/LMTD STD Angel Griggs MD [address] [facility] 2, [place] [address] [place] [address] Referral ID Status Reason Start Date Expiration Date Visits Requested Visits Authorized [id number] Authorized Perform Procedure 10/20/2023 10/19/2024 1 1 Specialty Diagnoses / Procedures Referred By Contac t Referred To Contact Cardiology Diagnoses Ventricular tachycardia, nonsustained (CMS/HCC) Presence of automatic cardioverter/defibrillator (AICD) Procedures Cardiac Device Check - Remote Lior Villeda MD [address] [facility] 3, [place] [address] [place] [address] Par [id number] Cr Nonv1 [address] [employer] [facility] [address] [place] [address] [place] [address] Referral ID Status Reason Start Date Expiration Date Visits Requested Visits Authorized [id number] Authorized Perform Procedure 10/19/2023 10/18/2024 1 1 Specialty Diagnoses / Procedures Referred By Contac t Referred To Contact Cardiology Diagnoses Paroxysmal atrial fibrillation (CMS/HCC) Procedures Cardioversion External Angel Griggs MD [address] [facility] 2, [address] [place] [address] Referral ID Status Reason Start Date Expiration Date V isits Requested Visits Authorized [id number] Pending Review 10/18/2023 10/17/2024 1 1 Specialty Diagnoses / Procedures Referred By Contac t Referred To Contact Diagnoses Paroxysmal atrial fibrillation (CMS/HCC) Procedures ECG 12 Lead Angel Griggs MD [address] [facility] 2, [address] [place] [address] Referral ID Status Reason Start Date Expiration Date V isits Requested Visits Authorized [id number] Authorized 10/18/2023 10/17/2024 1 1 Specialty Diagnoses / Procedures Referred By Contac t Referred To Contact Cardiology Diagnoses Paroxysmal atrial fibrillation (CMS/HCC) H/O cardiac radiofrequency ablation Coronary artery disease involving iqugmiut coronary artery of iqugmiut heart without angina pectoris Ischemic cardiomyopathy Procedures Follow Up In Cardiology Angel Griggs MD [address] [facility] 2, [place] [address] [place] [address] Angel Griggs MD [address] [facility] 2, [address] [place] [address] Referral ID Status Reason Start Date Expiration Date V isits Requested Visits Authorized [id number] Authorized 10/18/2023 10/17/2024 1 1 Specialty Diagnoses / Procedures Referred By Contac t Referred To Contact Cardiology Diagnoses Presence of automatic cardioverter/defibrillator (AICD) Ventricular tachycardia, nonsustained (CMS/HCC) Procedures Cardiac Device Check - Remote Nathan Au DO [address] [address], [address] [address] Referral ID Status Reason Start Date Expiration Date Visits Requested Visits Authorized [id number] Authorized Perform Procedure 3 12/31/2023 1 1 Specialty Diagnoses / Procedures Referred By Contac t Referred To Contact Cardiology Diagnoses Primary cardiomyopathy (CMS/HCC) Procedures Cardiac device check - Remote Nathan Au DO [address], [facility] [address] [place] [address] Referral ID Status Reason Start Date Expiration Date Visits Requested Visits Authorized [id number] Pending Review Perform Procedure 3 07/12/2024 1 1 Additional Source Comments REASON FOR VISIT (unrecogniz ed section and content) Specialty Diagnoses / Procedures Referred By Contac t Referred To Contact Diagnoses Ischemic cardiomyopathy S/P implantation of automatic cardioverter/defibrillator (AICD) Ischemic cardiomyopathy [I25.5] Procedures ICD Dual Implant Lior Villeda MD [address], [place] [address] [place] [address] Par [address] [place] [address] Referral ID Status Reason Start Date Expiration Date Visits Re quested Visits Authorized [id number] 1 1 Reason Comments Follow-up 6m Specialty Diagnoses / Procedures Referred By Contac t Referred To Contact Diagnoses Paroxysmal atrial fibrillation (CMS/HCC) Procedures ECG 12 Lead Angel Griggs MD [address] [facility] 2, [place] [address] [place] [address] Referral ID Status Reason Start Date Expiration Date V isits Requested Visits Authorized [id number] Pending Review 07/12/2023 07/11/2024 1 1 Specialty Diagnoses / Procedures Referred By Contac t Referred To Contact Cardiology Diagnoses Primary cardiomyopathy (CMS/HCC) Procedures Cardiac device check - Remote Nathan Au, DO [address], [place] [address] [place] [address] Referral ID Status Reason Start Date Expiration Date Visits Requested Visits Authorized [id number] Pending Review Perform Procedure 07/12/2024 1 1 Specialty Diagnoses / Procedures Referred By Contac t Referred To Contact Cardiology Diagnoses Presence of automatic cardioverter/defibrillator (AICD) Ventricular tachycardia, nonsustained (CMS/HCC) Procedures Cardiac Device Check - Remote Nathan Au, DO [address], [facility] [address] [place] [address] Referral ID Status Reason Start Date Expiration Date Visits Requested Visits Authorized [id number] Authorized Perform Procedure 12/31/2023 1 1 Specialty Diagnoses / Procedures Referred By Contac t Referred To Contact Cardiology Diagnoses Presence of automatic cardioverter/defibrillator (AICD) Ventricular tachycardia, nonsustained (CMS/HCC) Procedures Cardiac device check - In Clinic Nathan Au, DO [address], [place] [address] [place] [address] [facility] [id number] Cr Nonv1 [address] [facility] [address] [place] [address] Referral ID Status Reason Start Date Expiration Date Visits Requested Visits Authorized [id number] Authorized Perform Procedure 07/20/2023 07/19/2024 1 1 Specialty Diagnoses / Procedures Referred By Contac t Referred To Contact Diagnoses Atrial fibrillation (CMS/HCC) ATRIAL FIB Procedures OH COMPRE EP EVAL ABLTJ ATR FIB PULM VEIN ISOLATION Ablation A-Fib Persistant Lior Villeda MD [address] [employer] [facility] 3, [place] [address] [place] [address] [address] [place] [address] Referral ID Status Reason Start Date Expiration Date Visits Re quested Visits Authorized [id number] 1 1 Reason Comments Follow-up 3 months Specialty Diagnoses / Procedures Referred By Contac t Referred To Contact Cardiology Diagnoses Paroxysmal atrial fibrillation (CMS/HCC) Coronary artery disease involving iqugmiut coronary artery of iqugmiut heart without angina pectoris Procedures Follow Up In Cardiology Angel Grgigs MD [address] [facility] 2, [place] [address] [place] [address] Angel Griggs MD [address] [facility] 2, [place] [place] [address] Referral ID Status Reason Start Date Expiration Date V isits Requested Visits Authorized [id number] Authorized 07/12/2023 07/11/2024 1 1 Specialty Diagnoses / Procedures Referred By Contac t Referred To Contact Cardiology Diagnoses Ventricular tachycardia, nonsustained (CMS/HCC) Presence of automatic cardioverter/defibrillator (AICD) Procedures Cardiac Device Check - Remote Lior Villeda MD [address] [employer] [facility] 3, [place] [address] [place] [address] Par [id number] Cr Nonv1 [address] [employer] [facility] [address] [place] [place] [address] Referral ID Status Reason Start Date Expiration Date Visits Requested Visits Authorized [id number] Authorized Perform Procedure 10/19/2023 10/18/2024 1 1 Specialty Diagnoses / Procedures Referred By Contac t Referred To Contact Cardiology Diagnoses Dyspnea on exertion Ischemic cardiomyopathy Procedures Transthoracic Echo Limited [place] ECHO TRANSTHORC R-T 2D W/WO M-MODE REC F-UP/LMTD [place] DOP ECHOCARD COLOR FLOW VELOCITY MAPPING OH DOP ECHOCARD PULSE WAVE W/SPECTRAL F-UP/LMTD STD Angel Griggs MD [address] [facility] 2, [place] [place] [address] Referral ID Status Reason Start Date Expiration Date Visits Requested Visits Authorized [id number] Authorized Perform Procedure 10/20/2023 10/19/2024 1 1 Reason Comments EKG visit Specialty Diagnoses / Procedures Referred By Contac t Referred To Contact Diagnoses Paroxysmal atrial fibrillation with rapid ventricular response (CMS/HCC) Procedures ECG 12 Lead Angel Griggs MD [facility] [facility], [place] [place] [address] Referral ID Status Reason Start Date Expiration Date V isits Requested Visits Authorized [id number] Authorized 10/25/2023 10/24/2024 1 1 Specialty Diagnoses / Procedures Referred By Contac t Referred To Contact Cardiology Diagnoses Ventricular tachycardia, nonsustained (CMS/HCC) Presence of automatic cardioverter/defibrillator (AICD) Procedures Cardiac device check - Remote alert Lior Villeda MD [address], [place] [address] [place] [address] [facility] [id number] Cr Nonv1 [address] [place] [address] [place] [address] Referral ID Status Reason Start Date Expiration Date Visits Requested Visits Authorized [id number] Authorized Perform Procedure 11/01/2023 10/31/2024 1 1 Specialty Diagnoses / Procedures Referred By Contac t Referred To Contact Cardiology Diagnoses Presence of automatic cardioverter/defibrillator (AICD) Ventricular tachycardia, nonsustained (CMS/HCC) Procedures Cardiac Device Check - Remote Nathan Au DO [address], [place] [address] [place] [address] [facility] [id number] Cr Nonv1 [address] [place] [address] [place] [address] Referral ID Status Reason Start Date Expiration Date Visits Requested Visits Authorized [id number] Authorized Perform Procedure 3 08/09/2024 3 3 Reason Comments ekg visit Specialty Diagnoses / Procedures Referred By Contac t Referred To Contact Diagnoses Paroxysmal atrial fibrillation with rapid ventricular response (CMS/HCC) Procedures ECG 12 Lead Dallas Em MD [address], [place] [place] [address] Referral ID Status Reason Start Date Expiration Date V isits Requested Visits Authorized [id number] Authorized 11/01/2023 10/31/2024 1 1 Reason Comments Hospital Follow-up Specialty Diagnoses / Procedures Referred By Contac t Referred To Contact Diagnoses Essential hypertension Procedures ECG 12 lead (Clinic Performed) Lior Villeda MD [address] [facility] [address] [address], [place] [address] [place] [address] Referral ID Status Reason Start Date Expiration Date V isits Requested Visits Authorized [id number] Authorized 12/16/2023 12/15/2024 1 1 Care Teams (unrecognized sec tion and content) Team Status: Active Member Role Status Dates Toby Amdaor MD Primary Care Provider Active Team Status: [...] Brittany Calloway MD Other Provider Active Start: F ebruary 2023 Guido Romero MD Other Provider Active Start: October 28, 2023 Kelvin Koroma MD Other Provider Active Start: F ebruary 2023 Raquel Baxter , [facility] Other Provider Active Sta rt: October 28, [...] Kelvin Koroma MD Other Provider Active Start: 2023 End: October 30, 2023 Raquel Baxter , [facility] Other Provider Active Sta rt: October 29, 2023 End: October 30, 2023 Lyssa Jin MD Other Provider Active Start: October 29, 2023 End: October 30, 2023 Team Status: Inactive Member Role Status Gladys Garcia MD Primary Care Provider Active Bethel Bates DO Emergency Provider Active Team Status: Inactive Member Role Status Pineda Bustos DPM Attending Provider Active Team Status: Active Member Role Status Gladys Garcia MD Primary Care Provider Active Angel Griggs MD Attending Provider Active Team Status: Inactive Member Role Status Gladys Garcia MD Primary Care Provider Active Nimo Fu [facility] Emergency Provider Active Team Status: Active Member Role Status Toby Amador MD Primary Care Provider Active José Luis Coleman DO Emergency Provider Active Toy Yeager MD Admit Provider, Attending Provide r Active Team Status: Inactive Member Role Status Toby Amador MD Primary Care Provider Active José Luis Coleman DO Emergency Provider Active Toy Yeager MD Admit Provider Active Dallas Em MD Other Provider Active Derrek Tay DO Attending Provider Active Appointment Manager Relationship Specialty Start Date End Date Toby Amador MD [address] [place] [address] PCP - General 05/17/23 Appointment Manager Relationship Specialty Start Date End Date Toby Amador MD [address] [place] [address] PCP - General 05/17/23 Lior Villeda MD [address] [place] [address] Consulting Physician Cardiology 07/07/23 Appointment Manager Relationship Specialty Start Date End Date Toby Amador MD [address] [place] [address] PCP - General 05/17/23 Lior Villeda MD [address] [place] [address] Consulting Physician Cardiology 07/07/23 Appointment Manager Relationship Specialty Start Date End Date Toby Amador MD [address] [place] [address] PCP - General 05/17/23 Lior Villeda MD [address] [place] [address] Consulting Physician Cardiology 07/07/23 Appointment Manager Relationship Specialty Start Date End Date Toby Amador MD PCP - General 05/17/23 Lior Villeda MD [address] [place] [address] Consulting Physician Cardiology 07/07/23 Appointment Manager Relationship Specialty Start Date End Date Toby Amador MD PCP - General 05/17/23 Lior Villeda MD [address] [place] [address] Consulting Physician Cardiology 07/07/23 Appointment Manager Relationship Specialty Start Date End Date Toby Amador MD PCP - General 05/17/23 Lior Villeda MD [address], [address] [place] [address] Consulting Physician Cardiology 07/07/23 Appointment Manager Relationship Specialty Start Date End Date Toby Amador MD PCP - General 05/17/23 Lior Villeda MD [address] [place] [address] Consulting Physician Cardiology 07/07/23 Team Status: Inactive Member Role Status Dates Toby Amador MD Primary Care Provider Active José Luis Coleman DO Emergency Provider Active Appointment Manager Relationship Specialty Start Date End Date Toby Amador MD PCP - General 05/17/23 Lior Villeda MD [address], [address] [place] [address] Consulting Physician Cardiology 07/07/23 Appointment Manager Relationship Specialty Start Date End Date Toby Amador MD PCP - General 05/17/23 Lior Villeda MD [address] [place] [address] Consulting Physician Cardiology 07/07/23 Appointment Manager Relationship Specialty Start Date End Date Toby Amador MD PCP - General 05/17/23 Lior Villeda MD [address], [facility] [address] [place] [address] Consulting Physician Cardiology 07/07/23 Appointment Manager Relationship Specialty Start Date End Date Toby Amador MD PCP - General 05/17/23 Lior Villeda MD [address], [facility] [address] [place] [address] Consulting Physician Cardiology 07/07/23 Team Status: Active Member Role Status Dates Gladys Garcia MD Primary Care Provider Active S tart: August 22, 2023 Angel Griggs MD Attending Provider Active St art: August 22, 2023 Appointment Manager Relationship Specialty Start Date End Date Toby Amador MD PCP - General 05/17/23 Lior Villeda MD [address], [facility] [address] [place] [address] Consulting Physician Cardiology 07/07/23 Appointment Manager Relationship Specialty Start Date End Date Toby Amador MD [facility] [place] [address] PCP - General 05/17/23 Lior Villeda MD [address] [facility] [address], [address] [place] [address] Consulting Physician Cardiology 07/07/23 Team Status: Active Member Role Status Dates Toby Amador MD Primary Care Provider Active S tart: October 28, 2023 Dylon Weiss DO Emergency Provider Active Sta rt: October 28, 2023 Trev Salmon DO RES Active Start: October 28, 2023 Daniela Gore MD Admit Provider, Attcale nding Provider Active Start: October 28, 2023 [...] Brittany Calloway MD Other Provider Active Start: Mark corrigan 2023 End: October 30, 2023 Guido Romero MD Other Provider Active Start: October 28, 2023 End: October 30, 2023 Kelvin Koroma MD Other Provider Active Start: ebruary 2023 End: October 30, 2023 Raquel Baxter [facility] Other Provider Active Sta rt: October 28, [...] Provider Active Start: ebruary 2023 Raquel Baxter [facility] Other Provider Active Sta rt: October 28, [...] [id number] End: October 30, 2023 Raquel Baxter , [facility]- Other Provider Active Sta rt: October 29, 2023 End: October 30, 2023 Lyssa Jin MD Other Provider Active Start: October 29, 2023 End: October 30, 2023 Appointment Manager Relationship Specialty Start Date End Date Toby Amador MD [address] [place] [address] PCP - General 05/17/23 Lior Villeda MD [address] [facility] [address], [address] [place] [address] Consulting Physician Cardiology 07/07/23 Appointment Manager Relationship Specialty Start Date End Date Toby Amador MD [address] [place] [address] PCP - General 05/17/23 Lior Villeda MD [address] [place] [address] Consulting Physician Cardiology 07/07/23 Appointment Manager Relationship Specialty Start Date End Date Toby Amador MD [address] [place] [id number] PCP - General 05/17/23 Lior Villeda MD [address], [facility] [address] [place] [address] Consulting Physician Cardiology 07/07/23 Team Status: Inactive Member Role Status Dates Pineda Bustos DPM Attending Provider Active Start: November 22, 2023 End: November 22, 2023 Toby Amador MD Primary Care Provider Active S tart: November 22, 2023 End: November 22, 2023 Team Status: Inactive Member Role Status Dates Toby Amador MD Primary Care Provider Active S tart: November 30, 2023 End: November 30, 2023 Dallas Em MD Attending Provid er, Referring Provider Active Start: November 30, 2023 End: November 30, 2023 Team Status: Active Member Role Status Dates Toby Amador MD Primary Care Provider Active S tart: December 07, 2023 José Luis Coleman DO Emergency Provider Active Sta rt: December 07, 2023 Ryley Hgigins , Admit Provider , Attending Provider Active Start: December 07, 2023 Team Status: Active Member Role Status Dates Toby Amador MD Primary Care Provider Active S tart: December 07, 2023 José Luis Coleman DO Emergency Provider Active Sta rt: December 07, 2023 Ryley Higgins DO Admit Provider , Attending Provider, Other Provider Active Start: December 07, 2023 Team Status: Inactive Member Role Status Dates Toby Amador MD Primary Care Provider Active S tart: December 08, 2023 End: December 09, 2023 José Luis Coleman DO Emergency Provider Active Sta rt: December 08, 2023 End: December 09, 2023 Ryley Higgins DO Admit Provider , Attending Provider Active Start: December 08, 2023 End: December 09, 2023 Appointment Manager Relationship Specialty Start Date End Date Toby Amador MD [address] [place] [address] PCP - General 05/17/23 Lior Villeda MD [address] [facility] [address], [facility] [address] [place] [address] Consulting Physician Cardiology 07/07/23 Team Status: Inactive Member Role Status Dates Toby Amador MD Primary Care Provider Active S tart: December 07, 2023 End: December 09, 2023 José Luis Coleman DO Emergency Provider Active Sta rt: December 07, 2023 End: December 09, 2023 Ryley Higgins DO Admit Provider , Attending Provider Active Start: December 07, 2023 End: December 09, 2023 Team Status: Active Member Role Status Dates Toby Amador MD Primary Care Provider Active S tart: December 07, 2023 End: December 09, 2023 José Luis Coleman DO Emergency Provider Active Sta rt: December 07, 2023 End: December 09, 2023 Ryley Higgins DO Admit Provider , Attending Provider, Other Provider Active Start: December 07, 2023 End: December 09, 2023 Goals (unrecognized section and content) Goals may [...] DATE CREATED AUTHOR AUTHOR'S ORGANIZ ATION 01/20/2023 [facility] DATE CREATED AUTHOR AUTHOR'S ORGANIZ ATION 05/25/2023 [employer] DATE CREATED AUTHOR AUTHOR'S ORGANIZ ATION 06/22/2023 [facility] DATE CREATED AUTHOR AUTHOR'S ORGANIZ ATION 08/14/[address] [facility] DATE CREATED AUTHOR AUTHOR'S ORGANIZ ATION 10/08/2023 [facility] DATE CREATED AUTHOR AUTHOR'S ORGANIZ ATION 12/29/2023 [facility] EPIC DATE CREATED AUTHOR AUTHOR'S ORGANIZ ATION 01/03/2024 [facility] DATE CREATED AUTHOR AUTHOR'S ORGANIZ ATION 01/07/2024 [facility] DATE CREATED AUTHOR AUTHOR'S ORGANIZ ATION 01/12/2024 [facility] DATE CREATED AUTHOR AUTHOR'S ORGANIZ ATION 01/12/2024 [facility] Scheduled Active and Recently Administ ered Medications (unrecognized section and content) Medication Order 06/28/2023 06/29/2023 06/30/2023 amiodarone (Pacerone) tablet 200 mg 200 mg, oral, 2 times daily, First dose on Carly 06/30/23 at 0900 0919 (Given - Provid er: [...] Daley RN)1510 (Given - Provider: Joe Daley, AZAR) glucagon (Glucagen) injection 1 mg 1 mg, [...] 1450, Intraprocedure 1450 (Given - Provider: Joe Daley, AZAR)1510 (Given - Provider: Joe Daley, RN)1525 (Given - Provider: Joe Daley, RN)1553 (Given - Provider: Joe Daley, RN) nitroglycerin [...] Daily, First dose on Tue08/29/23 at 2030 2029 (Not Given - Provider: Alicia Jimenez RN - Reason: Post-procedure) 0906 (Given - Provider: Lai Cabrera RN) 0900 (Given - Provider: Yonathan Nunez RN) colchicine tablet 0.6 mg 0.6 mg, oral, Daily, First dose on Tue08/30/23 at 0900 1300 (Given - Provider: Lai Cabrera RN) 0859 (Given - Provider: Yonathan Nunez, AZAR) furosemide (Lasix) injection 20 mg (COMPLETED) 20 mg, intravenous, Once, On Tue08/30/23 at 1300, For 1 dose 1356 (Given - Provider: Lai Cabrera RN) furosemide (Lasix) tablet 40 mg 40 mg, oral, Daily, First dose on Tue08/29/23 at 2030 2029 (Not Given - Provider: Alicia Jimenez RN - Reason: Post-procedure - Comment: start in am) 0907 (Given - Provider: Lai Cabrera RN) 0859 (Given - Provider: Yonathan Nunez RN) insulin glargine (Lantus) injection 65 Units 65 Units, subcutaneous, Nightly, First dose on Tue08/29/23 at 2100 2120 (Given - Provider: Alicia Jimenez RN) 2120 (Given - Provider: Arina Laird RN) 2099 (Due) metoprolol succinate XL (Toprol-XL) 24 hr tablet 25 mg 25 mg, oral, Daily, First dose on Tue08/29/23 at 2030, Do not crush or chew. 2029 (Not [...] - Comment: 163/90)2120 (Given - Provider: Arina Laird RN) 0900 (Not Given - Provider: Yonathan Nunez RN - Reason: Change in vital signs - Comment: BP 150/90)1400 (Not Given - Provider: Yonathan Nunez, AZAR - Reason: Order parameters not met)1900 (Due) potassium chloride CR (Klor-Con M20) ER tablet 20 mEq 20 mEq, oral, Daily, First dose on Tue08/29/23 at 2030, Best given with food and plenty of water to minimize gastric irritation. Do not crush or chew. 2030 (Not Given - Provider: Alicia Jimenez [...] Transfer Orders)2027 (MAR Unhold - Provider: Alicia Jimenez RN)2100 (Not Given - Provider: Alicia Jimenez RN - Reason: Patient/family refused) 0903 (Given - Provider: Lai Cabrera RN)212 (Given - Provider: Arina Laird RN) 0859 [...] Prophylaxis 0846 (Given - Provider: Tabitha Denis APRN-SCHOOL PRINCIPAL) Continuous Medication Order 08/29/2023 08/30/202308/3108/31/2023 lactated Ringer's infusion 100 mL/hr, intravenous, Continuous, [...] - Comment: for anticoagulation, verifed by Thuy ASKEWdo confirmed with Dr. Villeda)1005 (Given - Provider: [...] - Comment: for anticoagulation, verifed by Ronal KRUASE)1230 (Stopped - Provider: Denton Hidalgo RN) heparin [...] BE BASED ON THE PRIMARY CLINICAL RECORDS. [employer] provides no warranty or guarantee of the accuracy or completeness of information in this document.
== END 2024-01-18 07:30 | disposition home or self-care (01) ==
LOC: US 07:29
PROVIDERS: PCP Family Medicine; Visit Provider Family Medicine
DX: R42 Dizziness and giddiness (principal); I95.1 Orthostatic hypotension; I25.10 Atherosclerotic heart disease of native coronary artery without angina pectoris; I73.9 Peripheral vascular disease, unspecified; Z51.81 Encounter for therapeutic drug level monitoring; Z79.01 Long term (current) use of anticoagulants; I48.91 Unspecified atrial fibrillation
CPT/HCPCS: 85610; 93880; G0463

== ENCOUNTER 2024-01-18 11:15 | Outpatient (RCR) | payer OTHER, SELFPAY | END 2024-02-17 12:09 | disposition home or self-care (01) | LOC: MM 11:15 | PROVIDERS: PCP Family Medicine; Visit Provider Internal Medicine | DX: Z51.81 Encounter for therapeutic drug level monitoring (principal); Z79.01 Long term (current) use of anticoagulants; I48.0 Paroxysmal atrial fibrillation | CPT/HCPCS: 85610; G0463 ==

== ENCOUNTER 2024-02-20 03:37 | Outpatient (RCR) | payer OTHER, SELFPAY | END 2024-03-16 11:11 | disposition home or self-care (01) | LOC: MM 03:37 | PROVIDERS: PCP Family Medicine; Visit Provider Internal Medicine | DX: Z51.81 Encounter for therapeutic drug level monitoring (principal); Z79.01 Long term (current) use of anticoagulants; I48.91 Unspecified atrial fibrillation | CPT/HCPCS: 85610; G0463 ==

== ENCOUNTER 2024-03-09 10:32 | Observation (INO) | payer OTHER, SELFPAY ==
[2024-03-09] VITALS (50 sets, daily range): BP systolic 90–194; BP diastolic 56–120; PULSE 89–108; TEMP 36.5–37.9; O2SAT 68–100; BMI 38.0; BMI 36.0
--- NOTE | 2024-03-09 10:55 | XR_ITS ---
The [address] [address] Patient Name: HARRIETT THAKKAR MRN: [id number] date: 1965 Sex: M Assigned Patient Location: ER Current Patient Location: ED.MAIN Accession/Order Number: [id number] Exam Date: 03/09/2024 11:06 Report Date: 03/09/2024 11:52 At the request of: AJ PRYOR Procedure: XR chest 1V EXAM: XR chest 1V HISTORY: . weak . COMPARISON: 09/14/2023 Findings: Heart is normal in size. Pacer/defibrillator is noted. Vascularity is unremarkable. Lungs are free of focal infiltrates. No effusions are noted. EKG leads overlie the chest. XR/XR chest 1V Impression: 1. Pacer/defibrillator in place. 2. No acute heart or lung disease identified. Electronically authenticated by: LIAM HARRIS Date: 03/09/2024 11:52
--- NOTE | 2024-03-09 10:55 | ECG_ITS ---
The [facility] Test Date: 2024-03-09 Pat Name: HARRIETT THAKKAR Department: Room: - Gender: Male Vp Platforms: : 1965 Requested By: PJ AMADOR Order Number: [id number] Reading MD: MELVIN CHOW Measurements Intervals [place] Rate: 88 P: 52 RI: 206 QRS: -60 QRSD: 86 T: 66 QT: 380 QTc: 425 Interpretive Statements 1100 Sinus rhythm 2630 Left anterior fascicular block 3234 Anteroseptal myocardial infarction, age undetermined 9150 abnormal ECG Electronically Signed On 03-11-2024 7:56:46 EDT by MELVIN CHOW
--- NOTE | 2024-03-09 10:56 | CT_ITS ---
The [address] [address] Patient Name: HARRIETT THAKKAR MRN: [id number] date: 1965 Sex: M Assigned Patient Location: ER Current Patient Location: ER Accession/Order Number: [id number] Exam Date: 03/09/2024 11:06 Report Date: 03/09/2024 12:02 At the request of: AJ PRYOR Procedure: CT head/brain wo con EXAM: CT head/brain wo con HISTORY: Weakness. Patient lost consciousness. COMPARISON: None. TECHNIQUE: Contiguous transaxial images were obtained from skull base to vertex without administration of intravenous contrast. Dose reduction: mA and/or kV are were adjusted by automated exposure control software based upon patients height and weight. FINDINGS: There is no focal scalp soft tissue swelling or acute calvarial fracture. The visualized globes and orbits are grossly normal. There is minimal ethmoid sinus mucosal thickening. There are no paranasal sinus air-fluid levels.. Bilateral mastoid air cells are clear. The ventricles and sulci are normal and symmetric bilaterally. There is no intraparenchymal hemorrhage, extraaxial fluid collection, mass lesion, or acute large territory ischemia by noncontrast CT. There is intracranial atherosclerosis. CT/CT head/brain wo con IMPRESSION: 1. No acute intracranial hemorrhage or acute large territory ischemia by noncontrast CT. If the patient has a focal neurologic deficit or there is clinical suspicion for acute cerebrovascular accident, brain MRI would be recommended for further evaluation.. Electronically authenticated by: ARIANNA HEARN Date: 03/09/2024 12:02
--- NOTE | 2024-03-09 10:57 | ED.WEAKNESS1 ---
HPI - Weakness General Chief complaint: Weakness Stated complaint: WEAKNESS Time Seen by Provider: 03/09/24 10:50 Source: family Mode of arrival: Wheelchair History of Present Illness HPI Narrative: 59-year-old male presents to the emergency department for generalized weakness. His daughter gives most of the history. She reports that he has been having increasing weakness recently. He walked out to the car and walked into the emergency department on his own but when he was put in the wheelchair and being placed in a room he seemed to pass out. He does not seem to complain of any pain and does not have a headache or chest pain or abdominal pain. No palpitations fever or vomiting. Related Data Home Medications ?Medication ?Instructions ?Recorded ?Confirmed amiodarone 100 mg tablet 100 mg PO DAILY 03/09/24 03/09/24 atorvastatin 80 mg tablet 80 mg PO .QHS 03/09/24 03/09/24 citalopram 20 mg tablet 20 mg PO DAILY 03/09/24 03/09/24 dofetilide 500 mcg capsule mcg 03/09/24 insulin aspart U-100 100 unit/mL 03/09/24 subcutaneous solution (Novolog U-100 Insulin aspart) insulin glargine-yfgn 100 unit/mL 35 unit subcut DAILY 03/09/24 03/09/24 subcutaneous solution metformin 500 mg tablet 500 mg PO BID 03/09/24 03/09/24 potassium chloride 20 mEq 20 meq PO DAILY 03/09/24 03/09/24 tablet,extended release(part/cryst) semaglutide 2 mg/dose (8 mg/3 mL) mg subcut 03/09/24 subcutaneous pen injector (Ozempic) trazodone 50 mg tablet mg 03/09/24 warfarin 5 mg tablet mg 03/09/24 Allergies Allergy/AdvReac Type Severity Reaction Status Date / Time PAULETTE Inhibitors Allergy Unknown Verified 03/09/24 10:56 Penicillins Allergy Unknown Verified 03/09/24 10:56 Sulfa (Sulfonamide Allergy Unknown Verified 03/09/24 10:56 Antibiotics) Review of Systems ROS Narrative A ten point review of systems is negative except as noted above. Exam Narrative Exam Narrative: Nurses note and vital signs reviewed and patient is not hypoxic. General: The patient appears weak. He seems to prefer to keep his eyes closed Skin: Warm, dry, no pallor noted. There is no rash noted. Head: Normocephalic, atraumatic Eye: Normal conjunctiva, no drainage Ears, Nose, Mouth, and Throat: oral mucosa is moist. Nares patent. Cardiovascular: Regular Rate and Rhythm Respiratory: Patient is in no distress, no accessory muscle use, lungs are clear to auscultation, no wheezing, rales or rhonchi Back: non-tender, no CVA tenderness bilaterally to percussion. GI: Obese and nontender Musculoskeletal: The patient has no evidence of calf tenderness, no pitting edema, symmetrical pulses noted bilaterally Neurological: He is now awake and alert and oriented x 4, moves all 4 extremities well Psychiatric: Cooperative Constitutional Vital Signs, click to edit/add: Last Vital Signs Temp 97.7 F 03/09/24 11:42 Pulse 93 H 03/09/24 12:35 Resp 24 H 03/09/24 12:35 BP 194/110 H 03/09/24 13:47 Pulse Ox 88 L 03/09/24 13:18 O2 Del Method Room Air 03/09/24 13:18 O2 Flow Rate 2 03/09/24 13:18 Course Vital Signs Vital signs: Vital Signs Pulse Rate 92 H 03/09/24 10:46 Respiratory Rate 16 03/09/24 10:46 Blood Pressure 106/75 03/09/24 10:46 Pulse Oximetry 97 03/09/24 10:46 Oxygen Delivery Method Room Air 03/09/24 10:46 Temperature 97.7 F 03/09/24 11:42 Pulse Rate 93 H 03/09/24 12:35 Respiratory Rate 24 H 03/09/24 12:35 Blood Pressure 194/110 H 03/09/24 13:47 Pulse Oximetry 88 L 03/09/24 13:18 Oxygen Delivery Method Room Air 03/09/24 13:18 Oxygen Delivery Flow Rate 2 03/09/24 13:18 MDM - Weakness MDM Narrative Medical decision making narrative: The patient presented with intermittent confusion and generalized weakness. He does not have any focal deficits on physical exam. At times he is able to answer all orientation questions correctly and at other times he is unable to do so. CT brain is negative and CTA head and neck show no significant stenosis that would require intervention. Case discussed with Dr. Baxter, stroke team at [facility], who recommends admission here rather than transfer and a teleneurology consult which is being accomplished. Findings are discussed thoroughly with the patient's daughter who happens to be a nurse here at this hospital and she is aware of the findings and the disposition. Differential Diagnosis Differential diagnosis: Likely hypoglycemia, dehydration and other (TIA, stroke, intracranial hemorrhage) Lab Data Attestation: I reviewed the patient's lab results. Labs: Lab Results 03/09/24 03/09/24 Range/Units 10:50 11:03 WBC 8.6 (4.0-11.0) 10^3/uL RBC 5.10 (4.70-6.10) 10^6/uL Hgb 16.2 (14.0-18.0) g/dL Hct 48.5 (42.0-54.0) % MCV 95.1 H (80.0-94.0) fL MCH 31.8 (25.9-34.0) pg MCHC 33.4 (29.9-35.2) g/dL RDW 13.0 (11.0-15.0) % Plt Count 205 (150-450) 10^3/uL MPV 10.5 (9.5-13.5) fL Neut % (Auto) 72.6 (43.0-75.0) % Lymph % (Auto) 16.7 L (20.5-60.0) % [place] % (Auto) 8.7 (1.7-12.0) % Eos % (Auto) 1.3 (0.9-7.0) % Baso % (Auto) 0.5 (0.2-2.0) % Neut # (Auto) 6.2 (1.4-6.5) 10^3/uL Lymph # (Auto) 1.4 (1.2-3.8) 10^3/uL [place] # (Auto) 0.7 (0.3-0.8) 10^3/uL Eos # (Auto) 0.1 (0.0-0.7) 10^3/uL Baso # (Auto) 0.0 (0.0-0.1) 10^3/uL Abs Immat Gran (auto) 0.02 (0.00-0.03) 10^3/uL Imm/Tot Granulo (auto) 0.2 (0.0-0.5) % PT 19.7 H (9.0-11.6) sec INR 1.99 Sodium 137 (136-145) mmol/L Potassium 4.2 (3.5-5.1) mmol/L Chloride 101 (98-107) mmol/L Carbon Dioxide 24.1 (21.0-32.0) mmol/L Anion Gap 16.1 BUN 22.0 H (7.0-18.0) mg/dL Creatinine 1.52 H (0.70-1.30) mg/dL Est GFR ( Amer) 57 L (>=60) Est GFR (Non-Af Amer) 47 L (>=60) BUN/Creatinine Ratio 14.5 Glucose 162 H (74-106) mg/dL Calcium 9.5 (8.5-10.1) mg/dL Total Bilirubin 1.0 (0.2-1.0) mg/dL Direct Bilirubin 0.2 (0.0-0.2) mg/dL AST 21 (15-37) U/L ALT 30 (16-63) U/L Alkaline Phosphatase 98 (46-116) U/L Troponin I High Sens 25.6 (4.0-76.1) pg/mL Total Protein 7.0 (6.4-8.2) g/dL Albumin 3.6 (3.4-5.0) g/dL Globulin 3.4 g/dL Albumin/Globulin Ratio 1.1 POC Glucose 128 H (74-106) mg/dL Imaging Data CT scan - head: Radiologist's impression: ITS Impressions Chest X-Ray 03/09/24 10:55 Impression: 1. Pacer/defibrillator in place. 2. No acute heart or lung disease identified. Electronically authenticated by: LIAM HARRIS Date: 03/09/2024 11:[address] 03/09/24 10:56 IMPRESSION: 1. No acute intracranial hemorrhage or acute large territory ischemia by noncontrast CT. If the patient has a focal neurologic deficit or there is clinical suspicion for acute cerebrovascular accident, brain MRI would be recommended for further evaluation.. Electronically authenticated by: ARIANNA HEARN Date: 03/09/2024 12:02 Head CTA 03/09/24 12:10 IMPRESSION: 1. 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 Otherwise no hemodynamically significant stenosis, large vessel occlusion or aneurysm involving the remaining neck or intracranial arterial vasculature. 2. 17 mm right thyroid nodule. If not previously evaluated elsewhere consider nonemergent thyroid ultrasound for further characterization. Electronically authenticated by: JELENA NICHOLE Date: 03/09/2024 13:02 Neck CTA 03/09/24 12:10 IMPRESSION: 1. 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 Otherwise no hemodynamically significant stenosis, large vessel occlusion or aneurysm involving the remaining neck or intracranial arterial vasculature. 2. 17 mm right thyroid nodule. If not previously evaluated elsewhere consider nonemergent thyroid ultrasound for further characterization. Electronically authenticated by: JELENA NICHOLE Date: 03/09/2024 13:02 ECG Data Attestation: I personally reviewed and interpreted this ECG as follows: (EKG on my interpretation shows sinus rhythm without acute change and a rate of 88) Discharge Plan Discharge Chief Complaint: Weakness Clinical Impression: Altered mental status Patient Disposition: Admitted as Observation Time of Disposition Decision: 13:48 Condition: Fair
[2024-03-09 11:10] LABS: Glucometer 128 mg/dL (74-106)
[2024-03-09] MEDS: 0.9 % SODIUM CHLORIDE 1,000 ML 1000 ML IV (11:30)
[2024-03-09 11:31] LABS: Basophils Percent Auto 0.5 % (0.2-2.0); Eosinophils Absolute Auto 0.1 10^3/uL (0.0-0.7); Eosinophils Percent Auto 1.3 % (0.9-7.0); Hematocrit 48.5 % (42.0-54.0); Hemoglobin 16.2 g/dL (14.0-18.0); Immature Granulocytes Abs Auto 0.02 10^3/uL (0.00-0.03); Immature Granulocytes Pct Auto 0.2 % (0.0-0.5); Lymphocytes Absolute Auto 1.4 10^3/uL (1.2-3.8); Lymphocytes Percent Auto 16.7 % (20.5-60.0); Mean Corpuscular HGB Conc 33.4 g/dL (29.9-35.2); Mean Corpuscular Hemoglobin 31.8 pg (25.9-34.0); Mean Corpuscular Volume 95.1 fL (80.0-94.0); Mean Platelet Volume 10.5 fL (9.5-13.5); Monocytes Absolute Auto 0.7 10^3/uL (0.3-0.8); Monocytes Percent Auto 8.7 % (1.7-12.0); Neutrophils Absolute Auto 6.2 10^3/uL (1.4-6.5); Neutrophils Percent Auto 72.6 % (43.0-75.0); Platelet Count 205 10^3/uL (150-450); White Blood Count 8.6 10^3/uL (4.0-11.0)
[2024-03-09 11:36] LABS: INR 1.99; Prothrombin Time 19.7 sec (9.0-11.6)
[2024-03-09 11:37] LABS: Alanine Aminotransferase 30 U/L (16-63); Albumin Globulin Ratio 1.1; Albumin Level 3.6 g/dL (3.4-5.0); Alkaline Phosphatase 98 U/L (46-116); Aspartate Amino Transferase 21 U/L (15-37); Bilirubin Direct 0.2 mg/dL (0.0-0.2); Globulin 3.4 g/dL
[2024-03-09 11:44] LABS: Anion Gap 16.1; BUN Creatinine Ratio 14.5; Calcium 9.5 mg/dL (8.5-10.1); Carbon Dioxide 24.1 mmol/L (21.0-32.0); Chloride 101 mmol/L (98-107); Estimated GFR (African America 57 (>=60); Estimated GFR (Non-African Ame 47 (>=60); Glucose 162 mg/dL (74-106); Potassium 4.2 mmol/L (3.5-5.1); Sodium 137 mmol/L (136-145); Troponin I High Sensitivity 25.6 pg/mL (4.0-76.1)
--- NOTE | 2024-03-09 12:10 | CT_ITS ---
The [address] [address] Patient Name: HARRIETT THAKKAR MRN: [id number] date: 1965 Sex: M Assigned Patient Location: ER Current Patient Location: Accession/Order Number: [id number] Exam Date: 03/09/2024 12:20 Report Date: 03/09/2024 13:02 At the request of: AJ PRYOR Procedure: CT angio head EXAM: CT angio head, CT angio neck HISTORY: Altered mental status, confusion COMPARISON: CT head performed contemporaneously reported separately, carotid ultrasound 01/18/2024. TECHNIQUE: Postcontrast CTA imaging of the head and neck was performed with coronal and sagittal reformats. Maximum intensity projection and 3-D reformats were performed on a separate workstation. NASCET criteria was utilized. This CT exam was performed using one or more of the following dose reduction techniques: Automated exposure control, adjustment of the MA and/or kV according to patient size, or use of iterative reconstruction technique. FINDINGS: Aortic arch: Imaged portion shows no evidence of aneurysm. No significant stenosis of the major origins of the major arch vessels. Right carotid system: No evidence of significant (50% or greater) stenosis or occlusion. Left carotid system: Prominent atherosclerotic change involving the left proximal internal carotid artery with narrowing approaching but not exceeding 50% stenosis. Vertebral arteries: Right vertebral artery dominance. Short segment [id number] stenosis involving the origin of the left and mild stenosis involving the origin of the right vertebral artery secondary to atherosclerotic calcification. Anterior circulation: No evidence of aneurysm, significant stenosis, or occlusion. Vertebrobasilar system: No evidence of aneurysm, significant stenosis, or occlusion. Venous sinuses: Grossly patent. Additional findings: No abnormal intracranial enhancement. ACDF changes involving the cervical spine at C6-C7. Visualized portion of upper lungs are clear. Multinodular thyroid with the largest nodule seen on the right measuring approximately [address]/CT angio head IMPRESSION: 1. 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 Otherwise no hemodynamically significant stenosis, large vessel occlusion or aneurysm involving the remaining neck or intracranial arterial vasculature. 2. 17 mm right thyroid nodule. If not previously evaluated elsewhere consider nonemergent thyroid ultrasound for further characterization. Electronically authenticated by: JELENA NICHOLE Date: 03/09/2024 13:02
--- NOTE | 2024-03-09 12:10 | CT_ITS ---
The [address] [address] Patient Name: HARRIETT THAKKAR MRN: [id number] date: 1965 Sex: M Assigned Patient Location: ER Current Patient Location: Accession/Order Number: [id number] Exam Date: 03/09/2024 12:20 Report Date: 03/09/2024 13:02 At the request of: AJ PRYOR Procedure: CT angio neck EXAM: CT angio head, CT angio neck HISTORY: Altered mental status, confusion COMPARISON: CT head performed contemporaneously reported separately, carotid ultrasound 01/18/2024. TECHNIQUE: Postcontrast CTA imaging of the head and neck was performed with coronal and sagittal reformats. Maximum intensity projection and 3-D reformats were performed on a separate workstation. NASCET criteria was utilized. This CT exam was performed using one or more of the following dose reduction techniques: Automated exposure control, adjustment of the MA and/or kV according to patient size, or use of iterative reconstruction technique. FINDINGS: Aortic arch: Imaged portion shows no evidence of aneurysm. No significant stenosis of the major origins of the major arch vessels. Right carotid system: No evidence of significant (50% or greater) stenosis or occlusion. Left carotid system: Prominent atherosclerotic change involving the left proximal internal carotid artery with narrowing approaching but not exceeding 50% stenosis. Vertebral arteries: Right vertebral artery dominance. Short segment rizv-xw-jvlhxofl stenosis involving the origin of the left and mild stenosis involving the origin of the right vertebral artery secondary to atherosclerotic calcification. Anterior circulation: No evidence of aneurysm, significant stenosis, or occlusion. Vertebrobasilar system: No evidence of aneurysm, significant stenosis, or occlusion. Venous sinuses: Grossly patent. Additional findings: No abnormal intracranial enhancement. ACDF changes involving the cervical spine at C6-C7. Visualized portion of upper lungs are clear. Multinodular thyroid with the largest nodule seen on the right measuring approximately [address]/CT angio neck IMPRESSION: 1. 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 Otherwise no hemodynamically significant stenosis, large vessel occlusion or aneurysm involving the remaining neck or intracranial arterial vasculature. 2. 17 mm right thyroid nodule. If not previously evaluated elsewhere consider nonemergent thyroid ultrasound for further characterization. Electronically authenticated by: JELENA NICHOLE Date: 03/09/2024 13:02
--- NOTE | 2024-03-09 13:19 | PC.NURSE ---
per pt daughter pt has copd. pt O2 dropped to 88% while sleeping. pt placed on 2L of O2 per NC. SAT up to 94%
[2024-03-09] MEDS: LABETALOL HCL 20 MG/4 ML SYRINGE 10 MG IVP (13:57)
[2024-03-09 15:14] LABS: Magnesium 1.7 mg/dL (1.8-2.4)
[2024-03-09] MEDS: 0.9 % SODIUM CHLORIDE 1,000 ML 100 ML IV (15:35)
--- NOTE | 2024-03-09 16:10 | P.HP_ITS ---
<Statement entered by Gill Mello, DO - 03/09/24 17:50> This documentation has been reviewed and approved. Discharge: I have also seen and evaluated patient at the time of admission and agreed with Transfer of patient. I have patient accepted to [facility] under care of Dr. Valdes hospitalist for Cardiology and Neurology services/consultation and MRI. Family and patient are in agreement to transfer. NO changes to admitting diagnosis and admitting exam at the time of transfer. >30 min for transfer and care of patient. HPI H&P: HPI History of Present Illness Chief complaint: WEAKNESS Narrative: 03/09/24 1410 This is a 59-year-old male patient with a complicated past medical history as outlined below including IA, DM type II, permanent A-fib on warfarin, depression, and recent diagnosis of autonomic dysreflexia at [facility] (January 2024); who presented to the ED today complaining of generalized weakness and difficulty ambulating at home stating he had to hang onto the cifuentes . He denied being out in the heat and his home has air conditioning. He complained of feeling dizzy and lightheaded and having a headache on arrival to the ED. Workup in the ED revealed hypertensive urgency (194/110), and borderline tachycardia (93). Labs revealed mild kidney injury (BUN 22, CR 1.52, GFR 47), and borderline subtherapeutic INR (1.99). Otherwise labs were unremarkable. Multiple imaging modalities were obtained in the ED including a chest x-ray and CT of the head (both unremarkable). After returning from the CT in the ED the patient abruptly experienced expressive aphasia with nonsensical sentences at times. Telestroke was contacted by the ED provider and they recommended obtaining a CTA head and neck and an MRI of the brain, and admission admission to this facility for further monitoring. He was admitted in observation to the hospitalist service for hypertensive urgency, possible TIA, and ORSA. At the time of my exam the patient is resting in bed. It is 78 degrees in the room and the patient is complaining of feeling cold and has multiple blankets on and is still shivering. His temperature is 97.7. His daughter who is an RN at this facility informed me that he recently was worked up at [facility] in January due to persistent orthostatic hypotension and was diagnosed with autonomic dysreflexia. He followed up with neurology locally in February (Dr. Ayala) and an MRI of the brain was ordered as the neurologist was concerned for possible brain lesions. They have been attempting to schedule this MRI but have not been able to get it scheduled to date. The patient has a cardiac pacemaker which complicates obtaining an MRI as he must be at a facility with cardiology available for pacemaker reprogramming if needed. Unfortunately we cannot obtain an MRI at this facility for that reason and other than a repeat CT in the morning, we have no further imaging to offer here. On exam the patient has an NIH scale of 13 with expressive aphasia noted and mild ataxia of the right lower extremity but without any unilateral weakness, dysarthria, or altered mentation. Significant word finding difficulty is noted in the patient's speech and his responses to questions are sometimes nonsensical due to word finding difficulties. He does not appear to be acutely confused or encephalopathic. He complains of a temporal headache and feeling chilled. Due to the patient's history of orthostatic hypotension we asked nursing to obtain orthostatic vital signs. The patient had a significant drop in blood pressure when transitioning from lying to sitting. When they attempted to stand the patient he became unresponsive and was staring off into space . He was shaking and then vomited. His daughter noted that he became very pale and mottled when he attempted to stand. Nursing was unable to get a blood pressure with standing but he was most likely quite hypotensive. As we are unable to provide the patient the imaging studies that he needs and he requires specialty neurology care, we will attempt to transfer this patient to a tertiary care facility. We will allow permissive hypertension for now and give gentle IV fluids. We have held all renal toxic medications due to his mild ROSA Opioid HPI Opioid Management Most Recent Pain and Opioid Data: Last Pain Scale 4 03/09/24 16:03 Last Pain Assessment 03/09/24 16:03 Last ORT Total Score 0 03/09/24 15:12 Last ORT Risk Category Low Risk 03/09/24 15:12 Review of Systems ROS Status of ROS 10 or more systems reviewed and unremark able except as noted in history and below [facility] Medical History (Updated 03/09/24 @ 16:31 by Darcy Castro NP) Diabetes ?E11.9 - Type 2 diabetes mellitus without complications (ICD-10) Hyperlipidemia ?E78.5 - Hyperlipidemia, unspecified (ICD-10) Past heart attack ?I25.2 - Old myocardial infarction (ICD-10) Autonomic dysreflexia ?G90.4 - Autonomic dysreflexia (ICD-10) Pacemaker ?Z95.0 - Presence of cardiac pacemaker (ICD-10) Afib ?I48.91 - Unspecified atrial fibrillation (ICD-10) Surgical History (Updated 03/09/24 @ 14:43 by Adali Joy LPN) S/P ablation of atrial fibrillation ?Z98.890 - Other specified postprocedural states (ICD-10) ?Z86.79 - Personal history of other diseases of the circulatory system (ICD- 10) Family History (Updated 03/09/24 @ 14:40 by Adali Joy LPN) Grandfather Family history of cancer Family history of diabetes mellitus Mother Family history of diabetes mellitus Father Family history of diabetes mellitus Family history of myocardial infarction Social History (Updated 03/09/24 @ 14:41 by Adali Joy LPN) Smoking status: Never smoker Second hand tobacco smoke exposure: No Non-prescribed substance use: denies use Previous occupational history: retired Known occupational exposures/hazards: No Highest level of school completed/degree received: some college, no degree Do you want help with school or training: No Are you now , , , , never or living with a partner: In a typical week, how many times do you talk on the telephone with family, friends, or neighbors: never How often do you get together with friends or relatives: never How often do you attend christian or mandaen services: never Do you belong to any clubs or organizations such as christian groups unions, fraternal or athletic groups, or school groups: no Total score: 0 Score interpretation: A score of less than or equal to 1 indicates the most socially isolated. Little interest or pleasure in doing things: not at all Feeling down, depressed, or hopeless: not at all Feel stressed/tense/nervous/anxious/difficulty sleeping: not at all Due to disability, difficulty making decisions: No Do you think of yourself as: straight/heterosexual Gender Identity: male Meds Home Medications and Allergies Home Medications ?Medication ?Instructions ?Recorded ?Confirmed ?Type amiodarone 100 mg tablet 100 mg PO DAILY 03/09/24 03/09/24 History atorvastatin 80 mg tablet 80 mg PO .QHS 03/09/24 03/09/24 History clopidogrel 75 mg tablet 75 mg PO DAILY 03/09/24 03/09/24 History insulin aspart U-100 100 unit/mL 03/09/24 History subcutaneous solution (Novolog U-100 Insulin aspart) insulin glargine-yfgn 100 unit/mL 35 unit subcut DAILY 03/09/24 03/09/24 History subcutaneous solution metformin 500 mg tablet 500 mg PO BID 03/09/24 03/09/24 History midodrine 10 mg tablet 10 mg PO TID 03/09/24 03/09/24 History potassium chloride 20 mEq 20 meq PO DAILY 03/09/24 03/09/24 History tablet,extended release(part/cryst) semaglutide 2 mg/dose (8 mg/3 mL) 2 mg subcut .WEEKLY 03/09/24 03/09/24 History subcutaneous pen injector (Ozempic) warfarin 2.5 mg tablet 2.5 mg PO MOWEFR 03/09/24 03/09/24 History warfarin 5 mg tablet 5 mg PO SUTUTHSA@17 03/09/24 03/09/24 History Allergies Allergy/AdvReac Type Severity Reaction Status Date / Time PAULETTE Inhibitors Allergy Unknown Verified 03/09/24 10:56 Penicillins Allergy Unknown Verified 03/09/24 10:56 Sulfa (Sulfonamide Allergy Unknown Verified 03/09/24 10:56 Antibiotics) Exam Constitutional Vital Signs, click to edit/add: Last Vital Signs Temp 98.3 F 03/09/24 15:49 Pulse 107 H 03/09/24 16:02 Resp 18 03/09/24 15:49 BP 115/79 03/09/24 16:02 Pulse Ox 97 03/09/24 15:49 O2 Del Method Room Air 03/09/24 15:49 O2 Flow Rate 2 03/09/24 14:38 Common normals: no apparent distress, oriented x3, alert and well nourished General appearance: cooperative Orientation/consciousness: Yes awake HENMS Common normals: normocephalic, head/scalp atraumatic, hearing grossly normal bilaterally, external nose normal and moist oral mucous membranes Eye Common normals: PERRL, EOMs intact bilaterally, conjunctivae normal and no scleral icterus Alignment: alignment normal Eyelid: eyelids normal Neck & C-Spine Common normals: full ROM, supple and no JVD Chest Common normals: inspection of chest normal Chest: symmetrical chest wall rise Respiratory Common normals: normal respiratory effort, no retractions, no use of accessory muscles and clear to auscultation bilaterally Effort & inspection: able to speak in complete sentences Cardio Common normals: no JVD, regular rate, regular rhythm, S1 normal heart sound, S2 normal heart sound, no gallops, no clicks, no murmurs, no rub and peripheral pul ses 2+ throughout GI Common normals: Normal to inspection, nondistended, normoactive bowel sounds present, soft to palpation, non-tender, no hepatosplenomegaly, no masses and no bruits Bladder/kidney exam: bladder normal to palpation Extremity Common normals: normal capillary refill and no pedal edema General: normal exam except as noted; no clubbing and no cyanosis Neuro [place] Coma Scale: document GCS findings [place] coma scale eye opening: Spontaneous [place] coma scale verbal response: Orientated Asa coma scale motor response: Obey commands [place] coma scale total score: 15 Common normals: CN's II-XII intact bilaterally, moves all extremities and no sensory deficits noted Coordination/balance: [id number]-[id number] test abnormal (Mild/equivocal ataxia to RLE) Speech: expressive aphasia Gait (neuro): unable to assess gait Motor exam: strength 5/5 throughout, no pronator drift, no tremor noted and muscle tone normal throughout Psych Common normals: mental status grossly normal, thought process normal and affect normal Results Labs Labs: Short CBC 03/09/24 Range/Units 11:03 WBC 8.6 (4.0-11.0) 10^3/uL Hgb 16.2 (14.0-18.0) g/dL Hct 48.5 (42.0-54.0) % Plt Count 205 (150-450) 10^3/uL BMP 03/09/24 11:03 Sodium 137 Potassium 4.2 Chloride 101 Carbon Dioxide 24.1 BUN 22.0 H Creatinine 1.52 H Glucose 162 H Calcium 9.5 Liver Function 03/09/24 Range/Units 11:03 Total Bilirubin 1.0 (0.2-1.0) mg/dL Direct Bilirubin 0.2 (0.0-0.2) mg/dL AST 21 (15-37) U/L ALT 30 (16-63) U/L Alkaline Phosphatase 98 (46-116) U/L Albumin 3.6 (3.4-5.0) g/dL Pulse Oximetry Attestation: I have reviewed the pertinent pulse oximetry results. ECG Attestation: ?I have reviewed the pertinent ECG results. Interpretation: Sinus rhythm Left anterior fascicular block Anteroseptal myocardial infarction, age undetermined Abnormal ECG Compared to ECG from 09/14/2023 at 1228 Left anterior fascicular block now present Atrial flutter no longer present T wave abnormality no longer present Possible ischemia no longer present Myocardial infarct finding still present Imaging Chest x-ray: Attestation: I have reviewed the pertinent imaging results. Radiologist's impression: Impression: 1. Pacer/defibrillator in place. 2. No acute heart or lung disease identified. CT scan - head: Attestation: I have reviewed the pertinent imaging results. Radiologist's impression: IMPRESSION: 1. No acute intracranial hemorrhage or acute large territory ischemia by noncontrast CT. If the patient has a focal neurologic deficit or there is clinical suspicion for acute cerebrovascular accident, brain MRI would be recommended for further evaluation.. CTA Head/Neck: Attestation: I have reviewed the pertinent imaging results. Radiologist's impression: IMPRESSION: 1. 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 Otherwise no hemodynamically significant stenosis, large vessel occlusion or aneurysm involving the remaining neck or intracranial arterial vasculature. 2. 17 mm right thyroid nodule. If not previously evaluated elsewhere consider nonemergent thyroid ultrasound for further characterization. Assessment and Plan Assessment and Plan (1) CVA (cerebral vascular accident): Assessment and Plan: Acute/Suspected * Adm observation * CT Brain and CTA Head/neck imaging unremarkable in the ED * Tele-stroke contacted in ED * Recommend admit for MRI * Follow up with Tele-Neuro consult in AM * Unable to obtain MRI here d/t presence of indwelling cardiac pacemaker. * CVA or other neurologic abnormality strongly suspected * Plan to transfer to tertiary care facility ([facility]) for MRI and acute neurologic care * Allow permissive HTN for now (2) ROSA (acute kidney injury): Assessment and Plan: Acute * Mild - BUN 22, Cr 1.52, GFR 47 * Baseline CKD2 - BUN 18-22, Cr 1.24-1.4, GFR 52-59 * Hold renal toxic meds including home metformin, Ozempic * Gentle IVF w/ NS at 100/hr * CMP in AM (3) Hypertensive urgency: Assessment and Plan: Acute * No HTN history, in fact pt has been severely hypotensive recently - see autonomic dysreflexia * Unclear etiology of acute hypertensive urgency, but acute CVA is possible * D/t concern for CVA, we will allow permissive HTN for now * Hold home midodrine for now d/t HTN (4) Autonomic dysreflexia: Assessment and Plan: Sub-Acute * Recent work-up/Dx at [facility] in January * Severe orthostatic hypotension causing syncopal episodes and falls * Hold midodrine for now d/t HTN urgency on arrival to the ED * Outpatient MRI ordered by Dr Ayala, Neurologist, but not yet obtained * Concern for brain lesions * Mild hypothermia currently, possibly d/t autonomic dysreflexia * Temp 97.7 and pt is shivering despite overheated room (nearly 80 degrees) and three blankets * Specialty neurology care is indicated - attempt transfer to [facility] (5) Diabetes: Assessment and Plan: Chronic * Continue home glargine basal insulin * Give reduced dose Novolog CHO coverage of 10 un AC * family reports recent hypoglycemic episodes w/ home 3:1 coverage * ACHS glucometer checks * Med CC diet * Hold home metformin and Ozempic d/t ROSA (6) Hyperlipidemia: Assessment and Plan: Chronic * Continue home statin (7) Past heart attack: Assessment and Plan: Chronic * IA Oct 2019 * Continue home Plavix, statin (8) Afib: Assessment and Plan: Chronic * Not on rate controlling medications at baseline * Hx of bradycardia w/ pacemaker in place * Continue home warfarin for CVA prevention
[2024-03-09] MEDS: INSULIN ASPART 300 UNIT/3 ML PEN SUBQ ×2 (17:42→21:16)
[2024-03-09] MEDS: WARFARIN SODIUM 2.5 MG TABLET PO (17:42)
[2024-03-09] MEDS: ACETAMINOPHEN 325 MG TABLET 650 MG PO (19:22)
[2024-03-09] MEDS: ATORVASTATIN CALCIUM 40 MG TABLET 80 MG PO (21:14)
[2024-03-09] MEDS: 0.9 % SODIUM CHLORIDE 1,000 ML 150 ML IV (21:14)
--- NOTE | 2024-03-09 22:50 | PC.NURSE ---
2243 [facility] called for update on patient's planned transfer. Report called to Leda ASKEW at [phone] for [address] [place] room 3014. Report given with new expected transport time of 0100 on 03/10/2024.
[2024-03-10] VITALS: BP 113/74; PULSE 94; O2SAT 94
== END 2024-03-10 01:37 | disposition short-term general hospital (02) ==
LOC: ER 13:48 → MS 14:20 → ICU 16:22
PROVIDERS: Nurse Practitioner; Admitting Provider Family Medicine; Emergency Provider Emergency Medicine; PCP Family Medicine; Visit Provider Family Medicine
DX: N17.9 Acute kidney failure, unspecified (principal); I16.0 Hypertensive urgency; G90.4 Autonomic dysreflexia; E11.9 Type 2 diabetes mellitus without complications; E78.5 Hyperlipidemia, unspecified; I25.2 Old myocardial infarction; R41.82 Altered mental status, unspecified; I48.21 Permanent atrial fibrillation; Z79.01 Long term (current) use of anticoagulants; Z79.4 Long term (current) use of insulin; Z79.84 Long term (current) use of oral hypoglycemic drugs
CPT/HCPCS: 36415; 70450; 70496; 70498; 71045; 80048; 80053; 80076; 80307; 81001; 83735; 84443; 84484; 85025; 85610; 93005; 96361; 96374; 97165; 99285; G0378; J1290; Q3014; Q9967

== ENCOUNTER 2024-03-19 00:29 | Outpatient (RCR) | payer OTHER, SELFPAY | END 2024-03-30 23:59 | disposition home or self-care (01) | LOC: MM 00:29 | PROVIDERS: PCP Family Medicine; Visit Provider Internal Medicine | DX: Z51.81 Encounter for therapeutic drug level monitoring (principal); Z79.01 Long term (current) use of anticoagulants; I48.0 Paroxysmal atrial fibrillation | CPT/HCPCS: 85610; G0463 ==

== ENCOUNTER 2024-03-30 12:16 | Outpatient (OUT) | payer OTHER, SELFPAY ==
--- NOTE | 2024-03-30 12:19 | XR_ITS ---
[address] [address] Patient Name: HARRIETT THAKKAR MRN: [id number] date: 1965 Sex: M Assigned Patient Location: [facility] Current Patient Location: ED.MAIN Accession/Order Number: [id number] Exam Date: 03/30/2024 12:20 Report Date: 03/30/2024 15:13 At the request of: PJ AMADOR Procedure: XR ribs BI min 4V w CXR1V EXAMINATION: XR ribs BI min 4V w CXR1V HISTORY: Rib pain COMPARISON: No relevant comparison available. FINDINGS: LUNGS: Lung volumes. The right lung is clear. Left basilar infiltrate PLEURA: No pneumothorax, effusion, or pleural thickening. MEDIASTINUM: No visible mass or adenopathy. Bipolar pacemaker CARDIAC: No cardiomegaly or cardiac silhouette abnormality. RIBS: No acute rib fracture OTHER: Cervical fusion hardware. XR/XR ribs BI min 4V w CXR1V IMPRESSION: Left basilar infiltrate No acute rib fracture Electronically authenticated by: LIAM MONTIEL Date: 03/30/2024 15:13
== END 2024-03-30 12:17 | disposition home or self-care (01) ==
LOC: RAD 12:16
PROVIDERS: PCP Family Medicine; Visit Provider Family Medicine
DX: R07.81 Pleurodynia (principal); R06.02 Shortness of breath; R91.8 Other nonspecific abnormal finding of lung field
CPT/HCPCS: 71111

== ENCOUNTER 2024-03-30 13:55 | Emergency (ER) | payer OTHER, SELFPAY ==
--- NOTE | 2024-03-30 14:22 | PC.NURSE ---
[facility] notified of . Referral #[id number]
--- NOTE | 2024-03-30 14:23 | ED.GENADUL1 ---
HPI HPI - General Adult General Chief complaint: Cardiac Arrest/CPR Stated complaint: CARDIAC ARREST Time Seen by Provider: 03/30/24 14:16 History of Present Illness HPI narrative: Patient presented to us with cardiac arrest case, he was found unconscious with V-fib as the rhythmm by EMS , pt was already down one found at 1;15 and arrived to us 1:55 CPR at least has finished 2 rounds of epinephrine as well as a 1 shock in the last epinephrine was given 1 minute before arrival. The patient had a laryngeal mask and and he also had a right shoulder intraosseous Patient have a history of A-fib diabetes autonomic dysreflexia and coronary artery disease and he also has a pacemaker and possibly an ICD Related Data Home Medications ?Medication ?Instructions ?Recorded ?Confirmed amiodarone 100 mg tablet 100 mg PO DAILY 03/09/24 03/09/24 atorvastatin 80 mg tablet 80 mg PO DAILY 03/09/24 03/09/24 citalopram 20 mg tablet 20 mg PO DAILY 03/09/24 03/09/24 clopidogrel 75 mg tablet 75 mg PO DAILY 03/09/24 03/09/24 insulin aspart U-100 100 unit/mL 3 - 15 unit subcut ACHS 03/09/24 03/09/24 subcutaneous solution (Novolog U-100 Insulin aspart) insulin glargine-yfgn 100 unit/mL 35 unit subcut DAILY 03/09/24 03/09/24 subcutaneous solution magnesium oxide 400 mg (241.3 mg 400 mg PO DAILY 03/09/24 03/09/24 magnesium) tablet metformin 500 mg tablet 500 mg PO BIDWM 03/09/24 03/09/24 midodrine 10 mg tablet 10 mg PO TIDWM 03/09/24 03/09/24 potassium chloride 20 mEq 20 meq PO DAILY 03/09/24 03/09/24 tablet,extended release(part/cryst) semaglutide 2 mg/dose (8 mg/3 mL) 2 mg subcut .WEEKLY 03/09/24 03/09/24 subcutaneous pen injector (Ozempic) warfarin 2.5 mg tablet 2.5 mg PO MOWEFR 03/09/24 03/09/24 warfarin 5 mg tablet 5 mg PO SUTUTHSA@17 03/09/24 03/09/24 Allergies Allergy/AdvReac Type Severity Reaction Status Date / Time PAULETTE Inhibitors Allergy Unknown Verified 03/09/24 10:56 Penicillins Allergy Unknown Verified 03/09/24 10:56 Sulfa (Sulfonamide Allergy Unknown Verified 03/09/24 10:56 Antibiotics) Opioid HPI Opioid Management Most Recent Opioid Data: Last Pain Scale 2 03/10/24 01:00 Last ORT Total Score 0 03/09/24 15:12 Last ORT Risk Category Low Risk 03/09/24 15:12 PFSH PFS Medical History (Updated 03/30/24 @ 14:37 by Ariane Abbasi MD) Diabetes ?E11.9 - Type 2 diabetes mellitus without complications (ICD-10) Hyperlipidemia ?E78.5 - Hyperlipidemia, unspecified (ICD-10) Past heart attack ?I25.2 - Old myocardial infarction (ICD-10) Autonomic dysreflexia ?G90.4 - Autonomic dysreflexia (ICD-10) Pacemaker ?Z95.0 - Presence of cardiac pacemaker (ICD-10) Afib ?I48.91 - Unspecified atrial fibrillation (ICD-10) Surgical History (Updated 03/09/24 @ 14:43 by Adali Joy LPN) S/P ablation of atrial fibrillation ?Z98.890 - Other specified postprocedural states (ICD-10) ?Z86.79 - Personal history of other diseases of the circulatory system (ICD-10) Family History (Updated 03/09/24 @ 14:40 by Adali Joy LPN) Grandfather Family history of cancer Family history of diabetes mellitus Mother Family history of diabetes mellitus Father Family history of diabetes mellitus Family history of myocardial infarction Social History (Updated 03/09/24 @ 14:41 by Adali Joy LPN) Smoking status: Never smoker Second hand tobacco smoke exposure: No Non-prescribed substance use: denies use Previous occupational history: retired Known occupational exposures/hazards: No Highest level of school completed/degree received: some college, no degree Do you want help with school or training: No Are you now , , , , never or living with a partner: In a typical week, how many times do you talk on the telephone with family, friends, or neighbors: never How often do you get together with friends or relatives: never How often do you attend protestant or buddhist services: never Do you belong to any clubs or organizations such as protestant groups unions, fraternal or athletic groups, or school groups: no Total score: 0 Score interpretation: A score of less than or equal to 1 indicates the most socially isolated. Little interest or pleasure in doing things: not at all Feeling down, depressed, or hopeless: not at all Feel stressed/tense/nervous/anxious/difficulty sleeping: not at all Due to disability, difficulty making decisions: No Do you think of yourself as: straight/heterosexual Gender Identity: male Exam Narrative Exam Narrative: Upon arrival the patient have laryngeal mask and it was connected to the monitor and fine defibrillation is seen at the patient have a continuous CPR Upon arrival the patient pupils already dilated and fixed Medical Decision Making MDM Narrative Medical decision making narrative: No signs of trauma IV fluids continued The patient received shock at least 5 times during 15 minutes CPR during which his rhythm was V-fib The patient also received multiple doses of epinephrine in the ER and that is in including 3 in the ER and 2 before arrival The patient also received 1 dose of amiodarone 150 after he received 300 mg in the field 1 dose of sodium bicarb The patient also received dextrose 1 ampoule because of his history of diabetes The patient presented to us with appropriate doses to begin with as he is already more than 45-minute down at least time of is 2:10 pm of 03/30/2024 Patient have multiple risk factor including coronary artery disease Patient have an ICD and he have a magnet placed on top of it to deactivate it pt PCP Dr Troncoso agree to sign the certificate pt family at the bedside and informed including son and daughter Patient case discussed with the Evaluator Transfer [employer] and the pt body released to the home Discharge Plan Discharge Patient Disposition: Date/Time: 03/30/24 14:10 Probable Cause of Probable Cause of : Cardiac arrest
--- NOTE | 2024-03-30 14:45 | PC.NURSE ---
Pt arrives via EMS in cardiac arrest. Pt has an unknown downtime but was found at home at 1315. See CPR paperwork and documentation. Pt , time of called at 1410. Family present.
== END 2024-03-30 15:45 | disposition expired ==
PROVIDERS: Emergency Provider Emergency Medicine; PCP Family Medicine
DX: I46.9 Cardiac arrest, cause unspecified (principal); R07.81 Pleurodynia; R06.02 Shortness of breath; R91.8 Other nonspecific abnormal finding of lung field; I48.91 Unspecified atrial fibrillation; E11.9 Type 2 diabetes mellitus without complications; G90.4 Autonomic dysreflexia; I25.10 Atherosclerotic heart disease of native coronary artery without angina pectoris; Z79.4 Long term (current) use of insulin; Z95.810 Presence of automatic (implantable) cardiac defibrillator
CPT/HCPCS: 71111; 92950; 99285; J0171